=== PATIENT | female | born 1955 | race Caucasian/White ===

== ENCOUNTER → 2016-11-13 | Outpatient (CLI) | payer OTHER ==
[~2016-11-13] MED LIST: ADVIN25/60 INH; ALBUAER19 INH; AMOX875T PO; ASPI81TA28 PO; ATV/1 PO; BUME1TAB PO; CHOL1000 PO; FOLI800T17 PO; LOSA50TA6 PO; METO50TA16 PO; NRN/600 PO; NTRGSL/4 UT; OCTR100I SC; OMEP40CA41 PO; ONDA-63 PO; ONDA4TAB10 SL; ONDA4TAB46 PO; OXYC-106 PO; OXYC-164 PO; POTA20TA16 PO; PRAV40TA2 PO; SUMA25TA12 PO; TIOTCAP INH; TPRSR/25 PO; VITAMIN B 12 INJ; VNTHFA/IN INH
[2016-11-13 12:09] LABS: BASO % 0.2 %; BASO ABS # 0.02 K/uL (0-0.2); COMPLETE YES; EOS % 2.1 %; HEMATOCRIT 47.5 % (37-47); IG% 0.2 %; LYMPH % 22.1 %; LYMPH ABS # 2.49 K/uL (1.2-3.4); MEAN CELL VOLUME 96.7 fL (80-100); MEAN CORPUSCULAR HEMOGLOBIN 33.6 pg (25-34); MEAN CORPUSCULAR HGB CONC 34.7 g/dl (32-36); MONO % 5.8 %; NEUT % 69.6 %; PLATELET COUNT 217 K/uL (130-400); RED BLOOD COUNT 4.91 M/uL (4.2-5.4); WHITE BLOOD COUNT 11.27 K/uL (4.8-10.8)
[2016-11-13 12:37] LABS: ALT/SGPT 33 U/L (12-78); AST/SGOT 21 U/L (15-37); BLOOD UREA NITROGEN 12 mg/dl (7-18); BUN/CREATININE RATIO 21.4 (10-20); CALCIUM 9.4 mg/dl (8.5-10.1); CARBON DIOXIDE 29 mmol/L (21-32); CHLORIDE 103 mmol/L (98-107); CHOLESTEROL 137 mg/dl (0-200); CREATININE 0.56 mg/dl (0.60-1.20); GLUCOSE 123 mg/dl (70-99); POTASSIUM 3.4 mmol/L (3.5-5.1); SODIUM 139 mmol/L (136-145); TRIGLYCERIDES 255 mg/dl (0-150); VERY LOW DENSITY LIPOPROT CALC 51 mg/dl
[2016-11-13 12:39] LABS: ALB/GLOB RATIO 0.9 (0.9-2); ALKALINE PHOSPHATASE 127 U/L (45-117); CHOLESTEROL/HDL RATIO 3.1; HDL CHOLESTEROL 44 mg/dl
[2016-11-13 13:11] LABS: ESTIMATED AVERAGE GLUCOSE 126 mg/dl; HA1C FLAG Normal (Normal)
== END | disposition home or self-care (01) ==
LOC: C.LAB 10:38
PROVIDERS: ATTEND Family Medicine
DX: R73.02 Impaired glucose tolerance (oral) (principal); E78.5 Hyperlipidemia, unspecified; E53.8 Deficiency of other specified B group vitamins

== ENCOUNTER → 2017-01-16 | Outpatient (CLI) | payer OTHER ==
--- NOTE | 2017-01-16 11:51 | DIAGNOSTIC IMAGING REPORT ---
CHEST 2 VIEWS ROUTINE CLINICAL HISTORY: ATHEROSCLEROTIC HEART DISEASE COMPARISON STUDY: November 04, 2015 FINDINGS: There are postsurgical changes of midline sternotomy. There is no focal pulmonary consolidation. There is a calcified granuloma at the left lung apex. There are minor left basilar atelectatic changes. There is no failure. No pleural effusions are visualized.[ IMPRESSION: No active disease in the chest. Electronically signed by: Diomedes Benavides M.D. 01/16/2017 11:50 AM Dictated Date/Time: 01/16/2017 11:44 AM
[2017-01-16 12:42] LABS: BASO % 0.3 %; BASO ABS # 0.03 K/uL (0-0.2); COMPLETE YES; EOS % 1.9 %; HEMATOCRIT 47.9 % (37-47); IG% 0.2 %; LYMPH % 25.3 %; LYMPH ABS # 2.77 K/uL (1.2-3.4); MEAN CELL VOLUME 97.8 fL (80-100); MEAN CORPUSCULAR HEMOGLOBIN 32.4 pg (25-34); MEAN CORPUSCULAR HGB CONC 33.2 g/dl (32-36); MEAN PLATELET VOLUME 11.7 fL (7.4-10.4); MONO % 5.1 %; NEUT % 67.2 %; PLATELET COUNT 234 K/uL (130-400); WHITE BLOOD COUNT 10.97 K/uL (4.8-10.8)
[2017-01-16 13:24] LABS: ALT/SGPT 30 U/L (12-78); AST/SGOT 18 U/L (15-37); BLOOD UREA NITROGEN 18 mg/dl (7-18); BUN/CREATININE RATIO 22.7 (10-20); CALCIUM 9.1 mg/dl (8.5-10.1); CARBON DIOXIDE 20 mmol/L (21-32); CHLORIDE 114 mmol/L (98-107); CREATININE 0.81 mg/dl (0.60-1.20); GLUCOSE 117 mg/dl (70-99); SODIUM 143 mmol/L (136-145)
[2017-01-16 13:38] LABS: ALKALINE PHOSPHATASE 124 U/L (45-117); TOTAL IRON BINDING CAPACITY 423 mcg/dl (250-450)
== END | disposition home or self-care (01) ==
LOC: C.RAD 11:08
PROVIDERS: ATTEND Internal Medicine Cardiovascular Disease
DX: I25.119 Atherosclerotic heart disease of native coronary artery with unspecified angina pectoris (principal)

== ENCOUNTER 2017-02-20 12:53 | Emergency (ER) | payer OTHER ==
[~2017-02-20] VITALS: Ht 160 cm; Wt 67.0 kg
[~2017-02-20 12:53] MED LIST changes: -AMOX875T PO; -ASPI81TA28 PO; -ATV/1 PO; -CHOL1000 PO; -FOLI800T17 PO; -LOSA50TA6 PO; -NRN/600 PO; -NTRGSL/4 UT; -OMEP40CA41 PO; -ONDA-63 PO; -ONDA4TAB10 SL; -OXYC-164 PO; -POTA20TA16 PO; -PRAV40TA2 PO; -SUMA25TA12 PO; -TPRSR/25 PO; -VNTHFA/IN INH
[2017-02-20 12:55] VITALS: Ht 160 cm; Wt 67.0 kg
[2017-02-20] MEDS ORDERED: ONDANSETRON INJ 2 MG/ML 2 ML VIAL IV STA (13:16)
[2017-02-20] MEDS ORDERED: SODIUM CHLORIDE 0.9% 1000ML 1,000 ML IV STA (13:16)
--- NOTE | 2017-02-20 13:39 | EMERGENCY ROOM VISIT NOTE ---
History First contact with patient: 13:00 Chief Complaint: FLU LIKE SX Stated Complaint: MIGRAINE,FEVER,CHILLS,SEVERE JOINT PAIN,HEART PALP History of Present Illness The patient is a 61 year old female who presents to the Emergency Room with complaints of flulike symptoms. The patient states that 3 days ago, after lunch she vomited and has felt ill since then. She has had persistent vomiting and has not been able to keep any food or liquids down. She reports that 2 days ago, she developed a severe migraine. She does have a history of migraines. She states that her migraine has improved but she still has a mild headache. She reports that she has had body aches and all of her joints hurt. She states that she feels weak. She does note that she has had several tick bites over her legs and arms in the past few weeks. She has removed all of the ticks by herself at home. She does report a history of arthritis in her left hip and left shoulder. She reports an extensive cardiac history including 2 open heart surgeries. She did have a heart catheterization 1 month ago. 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 She has been having fevers and chills and states that her temperature has been as high as 103F. She took 2 Tylenol this morning. She denies any diarrhea, abdominal pain, chest pain, or shortness of breath. Review of Systems A complete 10 point review of systems was reviewed with the patient with pertinent positives and negatives as per history of present illness. All else were negative. Past Medical/Surgical History Medical Problems: (1) Abdominal pain (2) Acute bronchitis (3) Anemia (4) Anxiety disorder (5) Benign hypertension (6) Chronic pain syndrome (7) COPD exacerbation (8) CORONARY ATHEROSCLEROSIS OF [place] CORONARY VESSEL (9) History CABG (10) History exploratory lap (11) History L shoulder surgery (12) History of appendectomy (13) History of cholecystectomy (14) History of total hysterectomy (15) Leukocytosis (16) Tobacco user (17) Unstable angina (18) UTI (urinary tract infection) (19) Vomiting Family History Diabetes mellitus FH: cancer FH: heart disease Hypertension Kidney stones Social History Smoking Status: Current Every Day Smoker Alcohol Use: none Drug Use: none Marital Status: Occupation Status: unemployed Current/Historical Medications Scheduled Albuterol Inhaler (Ventolin Inhaler), 2 PUFFS INH QID Aspirin (Aspirin Ec), 81 MG PO DAILY Bumetanide (Bumex), 1 MG PO QD@0800 Gabapentin (Neurontin), 600 MG PO TID Lorazepam (Ativan), 1 MG PO 5XD Losartan Potassium (Cozaar), 50 MG PO BID Metoprolol Succinate (Metoprolol Succinate ER), 25 MG PO DAILY Omeprazole (Prilosec), 40 MG PO DAILY Ondansetron (Ondansetron HCl), 8 MG PO DAILY Ondasetron Odt (Zofran Odt), 4 MG SL Q6H Oxycodone Hcl (Oxycodone Hcl), 10 MG PO 5XD Potassium Ext Rel (Klor-Con), 20 MEQ PO BID Pravastatin Sodium (Pravastatin Sodium), 40 MG PO QD@1600 [Vitamin B 12], 1 DOSE INJ MONTHLY Scheduled PRN Nitroglycerin (Nitrostat), 0.4 MG UT UD PRN for Chest Pain Sumatriptan Succinate (Imitrex), 25 MG PO DIRECTED PRN for Migraine Allergies Coded Allergies: Benzyl Alcohol (Verified Allergy, Severe, ANAPHYLAXIS, 02/20/17) Saccharin (Verified Allergy, Severe, ANAPHYLAXIS, 02/20/17) Iodinated Diagnostic Agents (Verified Allergy, Intermediate, Rash - IVP dye, 02/20/17) Furosemide (Verified Allergy, Mild, 02/20/17) Prochlorperazine (Verified Allergy, Mild, 02/20/17) Promethazine (Verified Allergy, Mild, 02/20/17) Physical Exam Vital Signs Date Time Temp Pulse Resp B/P (MAP) Pulse Ox O2 Delivery O2 Flow Rate FiO2 02/20/17 15:30 96 18 139/81 95 02/20/17 14:20 37.1 101 16 139/74 99 Room Air 02/20/17 13:58 82 02/20/17 12:55 36.9 104 16 147/71 95 Room Air Physical Exam GENERAL: This is a 61-year-old female, awake, alert, well-appearing, in no distress HEAD: Normocephalic, atraumatic. Oropharynx unremarkable. EYES: PERRLA, Normal conjunctiva. Sclera non-icteric. EARS: Tympanic membranes pearly stoddard without erythema or effusion. MOUTH: No erythema of the posterior oropharynx. NECK: Supple. No nuchal rigidity. Full range of motion. RESPIRATORY: Decreased breath sounds throughout all lung castillo. CARDIAC: Regular rate and rhythm with no murmurs gallops or rubs. ABDOMEN: Soft, non-distended. No tenderness to palpation. No rebound or guarding. No masses. SKIN: There are multiple erythematous papules consistent with recent insect bites. There are no target rashes noted. NEURO: Alert and oriented to person, place and time. No focal neuro deficits. Medical Decision & Procedures ER Provider Diagnostic Interpretation: ABDOMEN 2VIEW W/PA CHEST RTN CLINICAL HISTORY: vomiting nausea COMPARISON STUDY: 01/16/2017 FINDINGS: Mild stable cardiomegaly. Lungs are clear. Chronic blunting left lateral costophrenic angle. Bowel pattern is nonobstructive. Postoperative changes right upper quadrant. IMPRESSION: Chronic and postoperative change. No acute process. Laboratory Results 02/20/17 13:45 Red Blood Count 4.36, Mean Corpuscular Volume 96.6, Mean Corpuscular Hemoglobin 32.8, Mean Corpuscular Hemoglobin Concent 34.0, Mean Platelet Volume 10.5, Neutrophils (%) (Auto) 80.8, Lymphocytes (%) (Auto) 12.8, Monocytes (%) (Auto) 5.7, Eosinophils (%) (Auto) 0.3, Basophils (%) (Auto) 0.2, Neutrophils # (Auto) 4.68, Lymphocytes # (Auto) 0.74, Monocytes # (Auto) 0.33, Eosinophils # (Auto) 0.02, Basophils # (Auto) 0.01 02/20/17 13:45 Test 02/20/17 13:45 White Blood Count 5.79 K/uL (4.8-10.8) Red Blood Count 4.36 M/uL (4.2-5.4) Hemoglobin 14.3 g/dL (12.0-16.0) Hematocrit 42.1 % (37-47) Mean Corpuscular Volume 96.6 fL (80-100) Mean Corpuscular Hemoglobin 32.8 pg (25-34) Mean Corpuscular Hemoglobin Concent 34.0 g/dl (32-36) Platelet Count 105 K/uL (130-400) Mean Platelet Volume 10.5 fL (7.4-10.4) Neutrophils (%) (Auto) 80.8 % Lymphocytes (%) (Auto) 12.8 % Monocytes (%) (Auto) 5.7 % Eosinophils (%) (Auto) 0.3 % Basophils (%) (Auto) 0.2 % Neutrophils # (Auto) 4.68 K/uL (1.4-6.5) Lymphocytes # (Auto) 0.74 K/uL (1.2-3.4) Monocytes # (Auto) 0.33 K/uL (0.11-0.59) Eosinophils # (Auto) 0.02 K/uL (0-0.5) Basophils # (Auto) 0.01 K/uL (0-0.2) RDW Standard Deviation 48.3 fL (36.4-46.3) RDW Coefficient of Variation 13.5 % (11.5-14.5) Immature Granulocyte % (Auto) 0.2 % Immature Granulocyte # (Auto) 0.01 K/uL (0.00-0.02) Anion Gap 8.0 mmol/L (3-11) Est Creatinine Clear Calc Drug Dose 95.7 ml/min Estimated GFR () 115.8 Estimated GFR (Non- 99.9 BUN/Creatinine Ratio 21.2 (10-20) Calcium Level 8.5 mg/dl (8.5-10.1) Total Bilirubin 0.5 mg/dl (0.2-1) Aspartate Amino Transf (AST/SGOT) 52 U/L (15-37) Alanine Aminotransferase (ALT/SGPT) 43 U/L (12-78) Alkaline Phosphatase 149 U/L (45-117) Troponin I < 0.015 ng/ml (0-0.045) Total Protein 6.6 gm/dl (6.4-8.2) Albumin 2.8 gm/dl (3.4-5.0) Globulin 3.8 gm/dl (2.5-4.0) Albumin/Globulin Ratio 0.7 (0.9-2) Lipase 56 U/L (73-393) Thyroid Stimulating Hormone (TSH) 0.736 uIu/ml (0.300-4.500) Lyme Disease IgG Antibody NEG (NEG) Lyme Disease IgM Antibody NEG (NEG) Medications Administered Medications (Trade) Dose Ordered Sig/Boni Route Start Time Stop Time Status Last Admin Dose Admin Sodium Chloride 1,000 ml @ 999 mls/hr Q1H1M STAT IV 02/20/17 13:16 02/20/17 14:16 DC 02/20/17 13:56 999 MLS/HR Ondansetron HCl (Zofran Inj) 4 mg NOW STAT IV 02/20/17 13:16 02/20/17 13:20 DC 02/20/17 13:56 4 MG Morphine Sulfate (MoRPHine SULFATE INJ) 6 mg NOW STAT IV 02/20/17 14:05 02/20/17 14:06 DC 02/20/17 14:18 6 MG ED Course The patient was evaluated as above. Labs were drawn and IV access was obtained. Patient was medicated with 4 mg Zofran IV and 1 L normal saline solution. Patient was reevaluated and complained of pain "all over." She was given 6 mg morphine IV. Discharge instructions were reviewed with the patient. The patient verbalized understanding of my assessment and treatment plan and was discharged home in good condition. Medical Decision Differential diagnosis includes pneumonia, upper respiratory infection, Lyme disease, tick borne illness, viral syndrome, among others. The patient is a 61-year-old female who presents today complaining of body aches and flulike symptoms. Labs revealed no leukocytosis, anemia or concerning electrolyte abnormalities. LFTs were mildly elevated, but they have been in the past. Lyme was negative. Findings were discussed with the patient. She likely has a viral illness. She was instructed to increase fluids and take yula-xqt-bboerup medications as needed for pain. She is afebrile and vital signs are stable. The patient's case was reviewed with Dr. Puckett, ED attending physician, who agreed with my assessment and treatment plan. Based on the patient's presentation and work up, I feel the patient is stable for outpatient treatment. The patient was educated to return to the emergency department for any worsening of their current condition or new/concerning symptoms. She will follow up with her primary care provider. Medication reconciliation: I attest that I have personally reviewed the patient 's current medication list. Blood pressure screening: Patient was found to have normal blood pressure on screening and does not require follow-up. Impression Primary Impression: Influenza-like symptoms Departure Information Dispostion Home / Self-Care Condition GOOD Prescriptions Ondasetron Odt (ZOFRAN ODT) 4 Mg Tab 4 MG SL Q6H for Nausea, #15 TAB Prov: Marielena Redman PA-C 02/20/17 Referrals Marcos Jung M.D. (PCP) Patient Instructions My [facility] Additional Instructions You have been prescribed Zofran to be used for any nausea or vomiting. Take as prescribed. For pain control, you can use the following [id number] medicines (if >12 yo): - Regular strength (325mg/tab) Tylenol (acetaminophen) 2 tabs every 4-6 hours as needed. Do not exceed 12 tablets in a 24 hour period. Avoid taking more than 4 grams (4000 mg) of Tylenol per day. This includes any other sources of acetaminophen you may take on a regular basis. - Regular strength (200 mg/tab) Advil (ibuprofen) 1-2 tabs every 4-6 hours as needed. Do not exceed a dose of 3200 mg per day. Rest and drink plenty of fluids. Follow-up with your primary care provider tomorrow as scheduled. Return to the emergency department with any worsening or new/concerning symptoms.
[2017-02-20 13:55] LABS: BASO % 0.2 %; BASO ABS # 0.01 K/uL (0-0.2); COMPLETE YES; EOS % 0.3 %; HEMATOCRIT 42.1 % (37-47); IG% 0.2 %; LYMPH % 12.8 %; LYMPH ABS # 0.74 K/uL (1.2-3.4); MEAN CELL VOLUME 96.6 fL (80-100); MEAN CORPUSCULAR HEMOGLOBIN 32.8 pg (25-34); MEAN PLATELET VOLUME 10.5 fL (7.4-10.4); MONO % 5.7 %; NEUT % 80.8 %; PLATELET COUNT 105 K/uL (130-400); RED BLOOD COUNT 4.36 M/uL (4.2-5.4); WHITE BLOOD COUNT 5.79 K/uL (4.8-10.8)
[2017-02-20] MEDS ORDERED: MoRPHine SULFATE 10 MG/ML CARP/VIAL IV STA (14:05)
[2017-02-20 14:18] LABS: ALT/SGPT 43 U/L (12-78); AST/SGOT 52 U/L (15-37); BLOOD UREA NITROGEN 12 mg/dl (7-18); BUN/CREATININE RATIO 21.2 (10-20); CALCIUM 8.5 mg/dl (8.5-10.1); CARBON DIOXIDE 27 mmol/L (21-32); CHLORIDE 106 mmol/L (98-107); CREATININE 0.56 mg/dl (0.60-1.20); GLUCOSE 85 mg/dl (70-99); POTASSIUM 3.7 mmol/L (3.5-5.1); SODIUM 141 mmol/L (136-145)
[2017-02-20 14:20] VITALS: TEMP 37.1
[2017-02-20 14:29] LABS: ALB/GLOB RATIO 0.7 (0.9-2); ALKALINE PHOSPHATASE 149 U/L (45-117); THYROID STIMULATING HORMONE 0.736 uIu/ml (0.300-4.500)
[2017-02-20 14:48] LABS: LYME DISEASE AB IGG NEG (NEG)
[2017-02-20 14:52] LABS: LYME DISEASE AB IGM NEG (NEG)
--- NOTE | 2017-02-20 14:53 | DIAGNOSTIC IMAGING REPORT ---
ABDOMEN 2VIEW W/PA CHEST RTN CLINICAL HISTORY: vomiting nausea COMPARISON STUDY: 01/16/2017 FINDINGS: Mild stable cardiomegaly. Lungs are clear. Chronic blunting left lateral costophrenic angle. Bowel pattern is nonobstructive. Postoperative changes right upper quadrant. IMPRESSION: Chronic and postoperative change. No acute process. Electronically signed by: Gatito Pugh M.D. 02/20/2017 2:52 PM Dictated Date/Time: 02/20/2017 2:51 PM
[2017-02-20] MEDS ORDERED: ONDA4TAB10 SL (15:15)
[2017-02-20 15:30] VITALS: BP 139/81; PULSE 96; O2SAT 95
[2017-05-09] MEDS ORDERED: NTRGSL/4 UT (11:37)
[2017-05-09] MEDS ORDERED: LOSA50TA6 PO (13:06)
[2017-05-09] MEDS ORDERED: TPRSR/25 PO (14:03)
[2017-05-09] MEDS ORDERED: ONDA-63 PO (14:03)
[2017-05-09] MEDS ORDERED: OXYC-164 PO (14:03)
[2017-05-09] MEDS ORDERED: SUMA25TA12 PO (14:06)
[2017-05-09] MEDS ORDERED: OMEP40CA41 PO (14:06)
[2017-05-09] MEDS ORDERED: POTA20TA16 PO (16:28)
== END 2017-02-20 15:32 | disposition home or self-care (01) ==
LOC: C.EDB 12:55 → C.EDA 15:32
DX: J11.1 Influenza due to unidentified influenza virus with other respiratory manifestations (principal); I10 Essential (primary) hypertension; I25.10 Atherosclerotic heart disease of native coronary artery without angina pectoris; J44.9 Chronic obstructive pulmonary disease, unspecified; F41.9 Anxiety disorder, unspecified; D64.9 Anemia, unspecified; F17.200 Nicotine dependence, unspecified, uncomplicated; Z95.1 Presence of aortocoronary bypass graft; Z87.440 Personal history of urinary (tract) infections; Z90.49 Acquired absence of other specified parts of digestive tract; Z90.710 Acquired absence of both cervix and uterus; Z98.890 Other specified postprocedural states; Z79.82 Long term (current) use of aspirin; Z79.899 Other long term (current) drug therapy; Z88.8 Allergy status to other drugs, medicaments and biological substances; Z91.041 Radiographic dye allergy status; Z83.3 Family history of diabetes mellitus; Z80.9 Family history of malignant neoplasm, unspecified; Z82.49 Family history of ischemic heart disease and other diseases of the circulatory system; Z84.1 Family history of disorders of kidney and ureter

== ENCOUNTER → 2017-03-14 | Outpatient (CLI) | payer OTHER ==
[~2017-03-14] MED LIST changes: -ADVIN25/60 INH; +AMOX875T PO; +ASPI81TA28 PO; +ATV/1 PO; +CHOL1000 PO; +FOLI800T17 PO; +LOSA50TA6 PO; -METO50TA16 PO; +NRN/600 PO; +NTRGSL/4 UT; -OCTR100I SC; +OMEP40CA41 PO; +ONDA-63 PO; +ONDA4TAB10 SL; -ONDA4TAB46 PO; -OXYC-106 PO; +OXYC-164 PO; +POTA20TA16 PO; +PRAV40TA2 PO; +SUMA25TA12 PO; -TIOTCAP INH; +TPRSR/25 PO; +VNTHFA/IN INH
[2017-03-14 09:41] LABS: BASO % 0.1 %; BASO ABS # 0.01 K/uL (0-0.2); COMPLETE YES; EOS % 0.2 %; HEMATOCRIT 47.6 % (37-47); IG% 0.5 %; LYMPH % 16.4 %; LYMPH ABS # 3.01 K/uL (1.2-3.4); MEAN CELL VOLUME 97.7 fL (80-100); MEAN CORPUSCULAR HEMOGLOBIN 33.5 pg (25-34); MEAN CORPUSCULAR HGB CONC 34.2 g/dl (32-36); MEAN PLATELET VOLUME 10.5 fL (7.4-10.4); MONO % 3.6 %; NEUT % 79.2 %; PLATELET COUNT 288 K/uL (130-400); RED BLOOD COUNT 4.87 M/uL (4.2-5.4); WHITE BLOOD COUNT 18.39 K/uL (4.8-10.8)
[2017-03-14 10:17] LABS: FERRITIN 24.7 ng/ml (8.0-388.0)
[2017-03-14 11:29] LABS: LYME DISEASE AB IGG POS (NEG); LYME DISEASE AB IGM POS (NEG)
[2017-03-16 12:39] LABS: 18KDIGG BAND REACTIVE (NONREACTIVE); 23KDIGG BAND REACTIVE (NONREACTIVE); 23KDIGM BAND REACTIVE (NONREACTIVE); 28KDIGG BAND NONREACTIVE (NONREACTIVE); 30KDIGG BAND NONREACTIVE (NONREACTIVE); 39KDIGG BAND REACTIVE (NONREACTIVE); 39KDIGM BAND NONREACTIVE (NONREACTIVE); 41KDIGG BAND REACTIVE (NONREACTIVE); 41KDIGM BAND REACTIVE (NONREACTIVE); 45KDIGG BAND REACTIVE (NONREACTIVE); 58KDIGG BAND NONREACTIVE (NONREACTIVE); 66KDIGG BAND REACTIVE (NONREACTIVE); 93KDIGG BAND NONREACTIVE (NONREACTIVE)
== END | disposition home or self-care (01) ==
LOC: C.LAB 08:38
PROVIDERS: ATTEND Family Medicine
DX: E61.1 Iron deficiency (principal); R29.810 Facial weakness

== ENCOUNTER → 2017-03-16 | Outpatient (CLI) | payer OTHER ==
--- NOTE | 2017-03-16 14:52 | DIAGNOSTIC IMAGING REPORT ---
MRI OF THE BRAIN WITHOUT CONTRAST CLINICAL HISTORY: Facial weakness. Gilliam's palsy. Lyme's disease. COMPARISON STUDY: None. TECHNIQUE: Utilizing a 1.5 Suzanne magnet and dedicated coil, multiplanar, multiecho imaging of the brain was performed without IV contrast. FINDINGS: There are no areas of restricted diffusion. No acute intracranial hemorrhage, midline shift or mass effect is present. Jugular system is normal. Basilar cisterns are patent. There are no extra axial collections. Flow-voids for the major intracranial vessels are present. No intracranial masses identified on this unenhanced exam. There are multiple scattered small white matter T2 hyperintense foci, predominantly subacute cortical in distribution. These are nonspecific. Orbits and sinuses are unremarkable. IMPRESSION: 1. No acute intracranial hemorrhage or mass effect. No evidence of acute infarction. 2. Several white matter T2 hyperintense foci. These are entirely nonspecific and statistically reflect small vessel disease. The appearance is not typical for multiple sclerosis. However, other demyelinating processes could have this imaging appearance. Electronically signed by: Jose Dias M.D. 03/16/2017 2:51 PM Dictated Date/Time: 03/16/2017 2:44 PM
== END | disposition home or self-care (01) ==
LOC: C.MRI 14:06
PROVIDERS: ATTEND Family Medicine
DX: R29.810 Facial weakness (principal)

== ENCOUNTER 2017-05-09 19:48 | Emergency (ER) | payer OTHER ==
[~2017-05-09] VITALS: Ht 160 cm; Wt 69.4 kg
[~2017-05-09 19:48] MED LIST changes: -AMOX875T PO; -ASPI81TA28 PO; -ATV/1 PO; -CHOL1000 PO; -FOLI800T17 PO; -NRN/600 PO; -PRAV40TA2 PO; -VNTHFA/IN INH
[2017-05-09 19:53] VITALS: TEMP 36.8; Ht 160 cm; Wt 69.4 kg
[2017-05-09] MEDS ORDERED: NORCO 5/325MG HOME PACK PO ONE (21:00)
[2017-05-09] MEDS ORDERED: AMOXICIL/CLAVU 875MG HOME PACK PO ONE (21:00)
[2017-05-09] MEDS ORDERED: DIPHTHERIA/TETANUS/PERTUSSIS 0.5 ML SYR/VIAL IM. ONE (21:00)
[2017-05-09] MEDS ORDERED: ATV/1 PO (21:08)
[2017-05-09] MEDS ORDERED: ASPI81TA28 PO (21:08)
[2017-05-09] MEDS ORDERED: NRN/600 PO (21:08)
[2017-05-09] MEDS ORDERED: PRAV40TA2 PO (21:08)
[2017-05-09] MEDS ORDERED: VNTHFA/IN INH (21:14)
[2017-05-09] MEDS ORDERED: CHOL1000 PO (21:15)
[2017-05-09] MEDS ORDERED: FOLI800T17 PO (21:15)
--- NOTE | 2017-05-09 21:15 | DIAGNOSTIC IMAGING REPORT ---
LEFT FOURTH FINGER 3 VIEWS CLINICAL HISTORY: Dog bite injury. FINDINGS: 3 portable views of the left fourth finger are obtained. No prior studies are available for comparison at the time of dictation. The skeletal structures are osteopenic. There is no radiographic evidence of fourth finger fracture. Mild osteoarthritic change is present at the fourth distal interphalangeal joint. The joint spaces of the finger are otherwise maintained. Mild soft tissue swelling is noted in the fourth finger. No radiodense foreign body is identified. IMPRESSION: Soft tissue swelling with no radiographic evidence of left fourth finger fracture. Electronically signed by: Terry Oscar M.D. 05/09/2017 9:14 PM Dictated Date/Time: 05/09/2017 9:13 PM
[2017-05-09] MEDS ORDERED: AMOX875T PO (21:30)
--- NOTE | 2017-05-09 21:30 | EMERGENCY ROOM VISIT NOTE ---
History First contact with patient: 20:27 Chief Complaint: BITE Stated Complaint: DOG BITE ON FINGER History of Present Illness The patient is a 61 year old female who presents to the Emergency Room with complaints of a dog bite on her left fourth finger. The patient states that her 2 dogs were fighting and she attempted to break up the fight and sustained a bite to the finger. She rates the discomfort an 8/10. Her dogs vaccinations are up-to-date. She has not taken any medication for pain. She washed the wound with peroxide immediately afterward. She is unsure of her tetanus status. Review of Systems A complete 10 point review of systems was reviewed with the patient with pertinent positives and negatives as per history of present illness. All else were negative. Past Medical/Surgical History Medical Problems: (1) Abdominal pain (2) Acute bronchitis (3) Anemia (4) Anxiety disorder (5) Benign hypertension (6) Chronic pain syndrome (7) COPD exacerbation (8) CORONARY ATHEROSCLEROSIS OF [place] CORONARY VESSEL (9) History CABG (10) History exploratory lap (11) History L shoulder surgery (12) History of appendectomy (13) History of cholecystectomy (14) History of total hysterectomy (15) Leukocytosis (16) Tobacco user (17) Unstable angina (18) UTI (urinary tract infection) (19) Vomiting Family History Diabetes mellitus FH: cancer FH: heart disease Hypertension Kidney stones Social History Smoking Status: Never Smoker Alcohol Use: none Drug Use: none Marital Status: Occupation Status: unemployed Current/Historical Medications Scheduled Amoxicillin & Pot Clavulanate (Augmentin 875-125 mg), 1 TAB PO BID Aspirin (Aspirin Ec), 81 MG PO DAILY Cholecalciferol (Vitamin D3), 1 TAB PO DAILY Folic Acid (Cvs Folic Acid), 1 TAB PO DAILY Gabapentin (Neurontin), 600 MG PO QID Lorazepam (Ativan), 1 MG PO 5XD Losartan Potassium (Cozaar), 50 MG PO BID Metoprolol Succinate (Metoprolol Succinate ER), 25 MG PO DAILY Omeprazole (Prilosec), 40 MG PO DAILY Ondansetron (Ondansetron HCl), 8 MG PO DAILY Oxycodone Hcl (Oxycodone Hcl), 10 MG PO 5XD Pravastatin Sodium (Pravastatin Sodium), 40 MG PO QD@1600 Scheduled PRN Albuterol Hfa (Ventolin Hfa), 2 PUFFS INH Q6H PRN for SOB/Wheezing Bumetanide (Bumex), 1 MG PO DAILY PRN for PRN Nitroglycerin (Nitrostat), 0.4 MG UT UD PRN for Chest Pain Potassium Ext Rel (Klor-Con), 20 MEQ PO BID PRN for LEG CRAMPS Sumatriptan Succinate (Imitrex), 25 MG PO DIRECTED PRN for Migraine Physical Exam Vital Signs Date Time Temp Pulse Resp B/P (MAP) Pulse Ox O2 Delivery O2 Flow Rate FiO2 05/09/17 21:36 70 20 128/74 98 05/09/17 19:53 36.8 98 16 174/80 98 Room Air Physical Exam VITALS: Vitals are noted on the nurse's note and reviewed by myself. Vital signs stable. GENERAL: This is a 61-year-old female, in no acute distress, nondiaphoretic, well-developed well-nourished. SKIN: There is a puncture wound to the finger pad of the left fourth finger. There is no active bleeding. MUSCULOSKELETAL: Tenderness to palpation of the distal left fourth finger. Full range of motion of the finger. NEURO: Patient was alert and oriented to person place and time. Normal sensation to light and sharp touch. Medical Decision & Procedures ER Provider Diagnostic Interpretation: LEFT FOURTH FINGER 3 VIEWS CLINICAL HISTORY: Dog bite injury. FINDINGS: 3 portable views of the left fourth finger are obtained. No prior studies are available for comparison at the time of dictation. The skeletal structures are osteopenic. There is no radiographic evidence of fourth finger fracture. Mild osteoarthritic change is present at the fourth distal interphalangeal joint. The joint spaces of the finger are otherwise maintained. Mild soft tissue swelling is noted in the fourth finger. No radiodense foreign body is identified. IMPRESSION: Soft tissue swelling with no radiographic evidence of left fourth finger fracture. Medications Administered Medications (Trade) Dose Ordered Sig/Boni Route Start Time Stop Time Status Last Admin Dose Admin Amoxicillin/ Clavulanate Potassium (Augmentin 875MG Home Pack) 1 homepack UD ONCE PO 05/09/17 21:00 05/09/17 21:01 DC 05/09/17 21:35 1 HOMEPACK Acetaminophen/ Hydrocodone Bitart ([place] 5/325mg Home Pack) 1 homepack UD ONCE PO 05/09/17 21:00 05/09/17 21:01 DC 05/09/17 21:35 1 HOMEPACK Diphtheria/ Pertussis/Tetanus Vacc (Adacel Inj) 0.5 ml ONCE ONCE IM. 05/09/17 21:00 05/09/17 21:01 DC 05/09/17 21:09 0.5 ML Medical Decision The patient was evaluated as above. She sustained a puncture wound to the finger. X-ray showed no fracture. Closure is not indicated due to increased risk of infection. Her tetanus was updated. She will be placed on Augmentin to prevent infection. She verbalized understanding of my assessment and treatment plan and was discharged home in good condition. Medication Reconcilliation Current Medication List: was personally reviewed by me Blood Pressure Screening Patient's blood pressure: Elevated blood pressure Blood pressure disposition: Elevated BP felt to be situational Impression Primary Impression: Dog bite Departure Information Dispostion Home / Self-Care Condition GOOD Prescriptions Amoxicillin & Pot Clavulanate (Augmentin 875-125 mg) 1 Tab Tab 1 TAB PO BID for 7 Days, #14 TAB Prov: Marileena Redman PA-C 05/09/17 Referrals Marcos Jung M.D. (PCP) Patient Instructions My [facility] Additional Instructions You were prescribed Augmentin to be taken twice daily as prescribed. This is an antibiotic. All antibiotics have the potential to cause diarrhea. Stop this medication and contact a medical provider if you were to develop any significant adverse side effects including: wheezing, shortness of breath, passing out, vomiting, or a diffuse rash. Always take antibiotics as directed and COMPLETE the ENTIRE course regardless of the improvement of your symptoms. For pain control, you can use the following bqfk-jxp-yenytft medicines (if >12 yo): - Regular strength (325mg/tab) Tylenol (acetaminophen) 2 tabs every 4-6 hours as needed. Do not exceed 12 tablets in a 24 hour period. Avoid taking more than 4 grams (4000 mg) of Tylenol per day. This includes any other sources of acetaminophen you may take on a regular basis. - Regular strength (200 mg/tab) Advil (ibuprofen) 1-2 tabs every 4-6 hours as needed. Do not exceed a dose of 3200 mg per day. Proper wound care is essential for adequate wound healing and infection prevention. You can shower and clean the wound with soap and water. Do not scour over the wound, pat dry with a towel. Do not submerse the wound (i.e. bathe or dish wash) until the wound has fully healed. You can use an antibiotic ointment with a dressing over the wound for the next 3-4 days. After this time you may leave the wound dry and open to the air. Return for any signs of worsening infection such as increasing redness, swelling , drainage or fevers. Problem Qualifiers Primary Impression: Dog bite Encounter type: initial encounter Qualified Codes: W54.0XXA - Bitten by dog , initial encounter
[2017-05-09 21:36] VITALS: BP 128/74; PULSE 70; O2SAT 98
== END 2017-05-09 21:38 | disposition home or self-care (01) ==
LOC: C.EDB 19:48 → C.EDD 21:38
DX: S61.255A Open bite of left ring finger without damage to nail, initial encounter (principal); W54.0XXA Bitten by dog, initial encounter; Z23 Encounter for immunization; I10 Essential (primary) hypertension; I25.10 Atherosclerotic heart disease of native coronary artery without angina pectoris; J44.9 Chronic obstructive pulmonary disease, unspecified; F41.9 Anxiety disorder, unspecified; Z87.440 Personal history of urinary (tract) infections; Z95.1 Presence of aortocoronary bypass graft; Z90.710 Acquired absence of both cervix and uterus; Z90.49 Acquired absence of other specified parts of digestive tract; Z98.890 Other specified postprocedural states; Z79.82 Long term (current) use of aspirin; Z79.899 Other long term (current) drug therapy; Z83.3 Family history of diabetes mellitus; Z80.9 Family history of malignant neoplasm, unspecified; Z82.49 Family history of ischemic heart disease and other diseases of the circulatory system; Z84.1 Family history of disorders of kidney and ureter

== ENCOUNTER → 2017-05-22 | Outpatient (CLI) | payer OTHER ==
[~2017-05-22] MED LIST changes: -ALBUAER19 INH; +ASPI81TA28 PO; +ATV/1 PO; +CHOL1000 PO; +FOLI800T17 PO; +NRN/600 PO; -ONDA4TAB10 SL; +PRAV40TA2 PO; -VITAMIN B 12 INJ; +VNTHFA/IN INH
[2017-05-22 10:00] LABS: AST/SGOT 20 U/L (15-37); BLOOD UREA NITROGEN 17 mg/dl (7-18); BUN/CREATININE RATIO 23.5 (10-20); CALCIUM 9.7 mg/dl (8.5-10.1); CARBON DIOXIDE 26 mmol/L (21-32); CHLORIDE 108 mmol/L (98-107); CREATININE 0.72 mg/dl (0.60-1.20); GLUCOSE 135 mg/dl (70-99); SODIUM 140 mmol/L (136-145)
[2017-05-22 10:32] LABS: ESTIMATED AVERAGE GLUCOSE 140 mg/dl; HA1C FLAG Normal (Normal)
[2017-05-23 14:13] LABS: MICROSOMAL AB 1 IU/ML (<9)
== END | disposition home or self-care (01) ==
LOC: C.LAB 08:43
PROVIDERS: ATTEND Physician Assistant Medical
DX: E03.9 Hypothyroidism, unspecified (principal); E78.5 Hyperlipidemia, unspecified; R73.01 Impaired fasting glucose; E53.8 Deficiency of other specified B group vitamins; E87.6 Hypokalemia

== ENCOUNTER → 2017-05-24 | Outpatient (CLI) | payer OTHER | END | disposition home or self-care (01) | LOC: C.LAB 09:19 | PROVIDERS: ATTEND Family Medicine | DX: Z91.89 Other specified personal risk factors, not elsewhere classified (principal) ==

== ENCOUNTER → 2017-10-26 | Outpatient (CLI) | payer OTHER ==
--- NOTE | 2017-10-26 10:40 | DIAGNOSTIC IMAGING REPORT ---
LUMBAR SPINE W/O CONTRAST CLINICAL HISTORY: 61 years-old Female with M54.16 Lumbar radiculopathy. Acute lumbar spine pain with reticular symptoms of the bilateral lower extremities COMPARISON: Lumbar puncture 07/23/2017, CT abdomen and pelvis 10/05/2015 TECHNIQUE: Multiplanar, multi sequence MRI of the lumbar spine was performed without intravenous contrast. FINDINGS: There is no focal bone marrow edema, acute fracture or subluxation. No focal soft tissue edema. The imaged paraspinal, intra-abdominal and intrapelvic structures are unremarkable. No aortic aneurysm or adenopathy. Conus medullaris terminates at the L1 level. Cauda equina appear to be within normal limits. T12-L1: No central canal or neural foraminal stenosis. L1-L2: Minimal intervertebral disc space narrowing, endplate spurring and facet arthrosis. No Central canal or neural foraminal stenosis. L2-L3: Minimal intervertebral disc space narrowing, endplate spurring, ligamentum flavum thickening and facet arthrosis. Small circumferential annular disc bulge flattens the ventral thecal sac causing mild inferior left foraminal stenosis. No significant central canal or right foraminal narrowing. L3-L4: Mild intervertebral disc space narrowing with minimal spondylitic spurring, and facet arthrosis. No central canal or foraminal narrowing identified. L4-L5: Mild facet arthrosis with ligamentum flavum thickening and mild endplate spurring with small posterior disc bulge which flattens the ventral thecal sac. There is resultant mild right foraminal narrowing. Left foramen is patent. No significant central canal stenosis. L5-S1: Minimal facet arthrosis without central canal or foraminal narrowing. IMPRESSION: 1. Very mild discogenic degenerative changes as above. At L2-L3, small circumferential annular disc bulge flattens the ventral thecal sac and causes mild left foraminal narrowing. 2. At L4-L5, mild facet arthrosis with ligamentum flavum thickening and mild endplate spurring with small posterior disc bulge causes mild right foraminal narrowing. 3. No significant central canal stenosis. The above report was generated using voice recognition software. It may contain grammatical, syntax or spelling errors. Electronically signed by: Aki Osullivan M.D. 10/26/2017 10:39 AM Dictated Date/Time: 10/26/2017 10:29 AM
== END | disposition home or self-care (01) ==
LOC: C.MRI 09:42
PROVIDERS: ATTEND Physician Assistant
DX: M54.16 Radiculopathy, lumbar region (principal)

== ENCOUNTER → 2017-11-19 | Outpatient (CLI) | payer OTHER ==
[2017-11-19 10:07] LABS: HEMOGLOBIN A1C 6.2 % (4.5-5.6)
[2017-11-19 10:22] LABS: ALBUMIN 2.7 gm/dl (3.4-5.0); ALT/SGPT 26 U/L (12-78); AST/SGOT 19 U/L (15-37); BLOOD UREA NITROGEN 15 mg/dl (7-18); CALCIUM 8.4 mg/dl (8.5-10.1); CARBON DIOXIDE 28 mmol/L (21-32); CREATININE 0.72 mg/dl (0.60-1.20); GLUCOSE 121 mg/dl (70-99); SODIUM 142 mmol/L (136-145)
[2017-11-19 10:32] LABS: ALKALINE PHOSPHATASE 175 U/L (45-117); LDL CHOLESTEROL (DIRECT) 38 mg/dl; TOTAL PROTEIN 6.5 gm/dl (6.4-8.2)
== END | disposition home or self-care (01) ==
LOC: C.LAB 08:50
PROVIDERS: ATTEND Physician Assistant Medical
DX: E78.5 Hyperlipidemia, unspecified (principal); I10 Essential (primary) hypertension; R73.02 Impaired glucose tolerance (oral); E53.8 Deficiency of other specified B group vitamins; E03.9 Hypothyroidism, unspecified; M81.0 Age-related osteoporosis without current pathological fracture

== ENCOUNTER 2017-12-07 10:41 | Emergency (ER) | payer OTHER ==
[2017-12-07 10:54] VITALS: TEMP 37.2; Ht 160 cm
[2017-12-07] MEDS ORDERED: ONDANSETRON INJ 2 MG/ML 2 ML VIAL IV STA (11:04)
[2017-12-07] MEDS ORDERED: SODIUM CHLORIDE 0.9% 500ML 500 ML IV STA (11:04)
[2017-12-07] MEDS ORDERED: ALBUT/IPRATROP 3MG/0.5MG NEB 3 ML VIAL INH STA (11:04)
[2017-12-07] MEDS ORDERED: SODIUM CHLORIDE 0.65% NA SOLN 45 ML (OCEAN) ONE (11:15)
[2017-12-07 11:20] VITALS: O2SAT 100
--- NOTE | 2017-12-07 11:31 | EMERGENCY ROOM VISIT NOTE ---
History Report prepared by Charles: Caroline Cohen Under the Supervision of: Dr. Chau Garrison M.D. First contact with patient: 11:02 Chief Complaint: FLU LIKE SX Stated Complaint: FLU, FELL DOWN AND HURT LEG History of Present Illness The patient is a 61 year old female who presents to the Emergency Room with complaints of constant generalized illness beginning three days ago. The patient reports body aches, fatigue, vomiting, decreased appetite, and a cough. She denies any urinary burning, diarrhea, or abdominal pain. The patient notes recent flu contact with a person who was flu positive. The patient reports falling in her yard yesterday. She states "I think I may have broken some toes and my left knee cap". She notes toe and knee pain but denies any ankle pain. The patient has a history of CHF and anxiety. The patient takes a baby aspirin daily. She is not on Lasix. Source of History: patient Onset: 3 days ago Position: other (generalized) Quality: other (illness) Timing: constant Associated Symptoms: + cough, + vomiting, + fatigue, No abdominal pain, No diarrhea, No urinary symptoms Review of Systems See HPI for pertinent positives and negatives. A total of ten systems were reviewed and were otherwise negative. Past Medical & Surgical Medical Problems: (1) Abdominal pain (2) Acute bronchitis (3) Anemia (4) Anxiety disorder (5) Benign hypertension (6) Chronic pain syndrome (7) COPD exacerbation (8) CORONARY ATHEROSCLEROSIS OF THREE AFFILIATED CORONARY VESSEL (9) History CABG (10) History exploratory lap (11) History L shoulder surgery (12) History of appendectomy (13) History of cholecystectomy (14) History of total hysterectomy (15) Leukocytosis (16) Tobacco user (17) Unstable angina (18) UTI (urinary tract infection) (19) Vomiting Family History Diabetes mellitus FH: cancer FH: heart disease Hypertension Kidney stones Social History Smoking Status: Current Every Day Smoker Alcohol Use: none Drug Use: none Marital Status: Occupation Status: unemployed Current/Historical Medications Scheduled Aspirin (Aspirin Ec), 81 MG PO DAILY Cholecalciferol (Vitamin D3), 1 TAB PO DAILY Folic Acid (Cvs Folic Acid), 1 TAB PO DAILY Gabapentin (Neurontin), 600 MG PO QID Lorazepam (Ativan), 1 MG PO 5XD Losartan Potassium (Cozaar), 50 MG PO BID Metoprolol Succinate (Metoprolol Succinate ER), 25 MG PO DAILY Omeprazole (Prilosec), 40 MG PO DAILY Ondansetron (Ondansetron HCl), 8 MG PO DAILY Oseltamivir Phosphate (Tamiflu), 75 MG PO BID Oxycodone Hcl (Oxycodone Hcl), 10 MG PO 5XD Pravastatin Sodium (Pravastatin Sodium), 40 MG PO QD@1600 Scheduled PRN Albuterol Hfa (Ventolin Hfa), 2 PUFFS INH Q6H PRN for SOB/Wheezing Bumetanide (Bumex), 1 MG PO DAILY PRN for PRN Nitroglycerin (Nitrostat), 0.4 MG UT UD PRN for Chest Pain Potassium Ext Rel (Klor-Con), 20 MEQ PO BID PRN for LEG CRAMPS Sumatriptan Succinate (Imitrex), 25 MG PO DIRECTED PRN for Migraine Allergies Coded Allergies: Benzyl Alcohol (Verified Allergy, Severe, ANAPHYLAXIS, 12/07/17) Saccharin (Verified Allergy, Severe, ANAPHYLAXIS, 12/07/17) Iodinated Diagnostic Agents (Verified Allergy, Intermediate, Rash - IVP dye, 12/07/17) Furosemide (Verified Allergy, Mild, rash, 12/07/17) Prochlorperazine (Verified Allergy, Mild, rash, 12/07/17) Promethazine (Verified Allergy, Mild, rash, 12/07/17) Physical Exam Vital Signs Date Time Temp Pulse Resp B/P (MAP) Pulse Ox O2 Delivery O2 Flow Rate FiO2 12/07/17 14:44 81 16 108/54 96 12/07/17 13:57 82 16 112/58 92 Room Air 12/07/17 12:30 82 21 123/68 96 Room Air 12/07/17 12:10 81 12/07/17 11:30 83 19 127/73 94 Room Air 12/07/17 11:20 100 Room Air 12/07/17 10:54 37.2 83 20 107/71 92 Room Air Physical Exam GENERAL: Awake, alert, uncomfortable and fatigued-appearing, in no distress HENT: Normocephalic, atraumatic. Oropharynx unremarkable. Dry mucus membranes. Boggy nasal turbinates, mild maxillary and frontal sinus tenderness. EYES: Normal conjunctiva. Sclera non-icteric. NECK: Supple. No nuchal rigidity. FROM. No JVD. RESPIRATORY: Diminished breath sounds at bases with scant intermittent wheezes. CARDIAC: Regular rate, normal rhythm. Extremities warm and well perfused. Pulses equal. ABDOMEN: Soft, non-distended. No tenderness to palpation. No rebound or guarding. No masses. RECTAL: Deferred. MUSCULOSKELETAL: Chest examination reveals no tenderness. The back is symmetrical on inspection without obvious abnormality. There is no CVA tenderness to palpation. No joint edema. LOWER EXTREMITIES: Mild tenderness to left anterior knee and proximal tibia, mild swelling, erythema and tenderness to distal secondary and third phalanges of the left foot. NEURO: Normal sensorium. No sensory or motor deficits noted. SKIN: No rash or jaundice noted. Medical Decision & Procedures ER Provider Diagnostic Interpretation: Radiology results as stated below per my review and radiologist interpretation: CHEST ONE VIEW PORTABLE FINDINGS: The heart is mildly enlarged. There are postsurgical changes of a midline sternotomy. There is mild chronic interstitial thickening. There is no focal pulmonary consolidation. There are no pleural effusions. There is no pneumothorax.[Chronic postsurgical changes involve the distal left clavicle. IMPRESSION: Stable mild cardiomegaly and interstitial thickening. No evidence of focal pulmonary consolidation. No evidence of pneumothorax. Electronically signed by: Filomena Connor TIBIA/FIBULA 2 VIEWS ROUTINE DISCUSSION: The bones and joint spaces appear intact. There is no evidence of fracture, dislocation or bony disease. There is no evidence for soft tissue swelling. IMPRESSION: Negative study. The above report was generated using voice recognition software. It may contain grammatical, syntax or spelling errors. Electronically signed by: Filomena Baker KNEE 3 VIEWS DISCUSSION: The bones and joint spaces appear intact. There is no evidence of fracture, dislocation or bony disease. There is no evidence for soft tissue swelling. IMPRESSION: Negative study. The above report was generated using voice recognition software. It may contain grammatical, syntax or spelling errors. Electronically signed by: Filomena Baker FOOT MIN 3 VIEWS ROUTINE DISCUSSION: Mild degenerative change of the interphalangeal joints. Small heel spur. No acute bony abnormality. There is no evidence for soft tissue swelling. IMPRESSION: No acute process. Mild degenerative change. The above report was generated using voice recognition software. It may contain grammatical, syntax or spelling errors. Electronically signed by: Gatito Pugh M.D. Laboratory Results 12/07/17 11:36 Red Blood Count 4.37, Mean Corpuscular Volume 88.8, Mean Corpuscular Hemoglobin 28.6, Mean Corpuscular Hemoglobin Concent 32.2, Mean Platelet Volume 10.6, Neutrophils (%) (Auto) 76.4, Lymphocytes (%) (Auto) 13.9, Monocytes (%) (Auto) 8.9, Eosinophils (%) (Auto) 0.2, Basophils (%) (Auto) 0.2, Neutrophils # (Auto) 3.67, Lymphocytes # (Auto) 0.67, Monocytes # (Auto) 0.43, Eosinophils # (Auto) 0.01, Basophils # (Auto) 0.01 12/07/17 11:36 Test 12/07/17 11:26 12/07/17 11:36 Influenza Type A (RT-PCR) Neg for Influ A (NEG) Influenza Type B (RT-PCR) POS for Influ B (NEG) White Blood Count 4.81 K/uL (4.8-10.8) Red Blood Count 4.37 M/uL (4.2-5.4) Hemoglobin 12.5 g/dL (12.0-16.0) Hematocrit 38.8 % (37-47) Mean Corpuscular Volume 88.8 fL (80-100) Mean Corpuscular Hemoglobin 28.6 pg (25-34) Mean Corpuscular Hemoglobin Concent 32.2 g/dl (32-36) Platelet Count 136 K/uL (130-400) Mean Platelet Volume 10.6 fL (7.4-10.4) Neutrophils (%) (Auto) 76.4 % Lymphocytes (%) (Auto) 13.9 % Monocytes (%) (Auto) 8.9 % Eosinophils (%) (Auto) 0.2 % Basophils (%) (Auto) 0.2 % Neutrophils # (Auto) 3.67 K/uL (1.4-6.5) Lymphocytes # (Auto) 0.67 K/uL (1.2-3.4) Monocytes # (Auto) 0.43 K/uL (0.11-0.59) Eosinophils # (Auto) 0.01 K/uL (0-0.5) Basophils # (Auto) 0.01 K/uL (0-0.2) RDW Standard Deviation 51.8 fL (36.4-46.3) RDW Coefficient of Variation 16.0 % (11.5-14.5) Immature Granulocyte % (Auto) 0.4 % Immature Granulocyte # (Auto) 0.02 K/uL (0.00-0.02) Anion Gap 11.0 mmol/L (3-11) Estimated GFR () 86.3 Estimated GFR (Non- 74.5 BUN/Creatinine Ratio 15.8 (10-20) Calcium Level 8.1 mg/dl (8.5-10.1) Magnesium Level 1.9 mg/dl (1.8-2.4) Total Bilirubin 0.3 mg/dl (0.2-1) Direct Bilirubin 0.1 mg/dl (0-0.2) Aspartate Amino Transf (AST/SGOT) 32 U/L (15-37) Alanine Aminotransferase (ALT/SGPT) 23 U/L (12-78) Alkaline Phosphatase 156 U/L (45-117) Troponin I < 0.015 ng/ml (0-0.045) Pro-B-Type Natriuretic Peptide 1299 pg/ml (0-900) Total Protein 5.8 gm/dl (6.4-8.2) Albumin 2.4 gm/dl (3.4-5.0) Lipase 46 U/L (73-393) Laboratory results reviewed by me Medications Administered Medications (Trade) Dose Ordered Sig/Boni Route Start Time Stop Time Status Last Admin Dose Admin Sodium Chloride 500 ml @ 999 mls/hr Q31M STAT IV 12/07/17 11:04 12/07/17 11:34 DC 12/07/17 11:30 999 MLS/HR Ondansetron HCl (Zofran Inj) 4 mg NOW STAT IV 12/07/17 11:04 12/07/17 11:10 DC 12/07/17 11:30 4 MG Albuterol/ Ipratropium (Duoneb) 3 ml NOW STAT INH 12/07/17 11:04 12/07/17 11:10 DC 12/07/17 11:30 3 ML Sodium Chloride (Piatt Nasal [place]) 2 sprays NOW ONCE NA 12/07/17 11:15 3/23/18 11:16 DC 12/07/17 11:29 2 SPRAYS Oxycodone/ Acetaminophen (Percocet 5-325mg Tab) 1 tab NOW ONCE PO 12/07/17 12:15 12/07/17 12:16 DC 12/07/17 12:26 1 TAB Oseltamivir Phosphate (Tamiflu Cap) 75 mg NOW STAT PO 12/07/17 12:43 12/07/17 12:44 DC 12/07/17 12:56 75 MG ECG Per My Interpretation Indication: weakness Rate (beats per minute): 80 Rhythm: normal sinus Findings: no acute ischemic change, left axis deviation Comparison ECG Date: 02/20/17 Change: no significant change ED Course 1102: The patient was evaluated in room C9. A complete history and physical exam was performed. 1442: I reevaluated the patient. Discussed results and discharge instructions: She verbalized understanding and agreement. The patient is ready for discharge. Medical Decision I reviewed the patient's past medical history, medications, and the nursing notes as described above. Differential diagnosis: Etiologies such as infections, reactive airway disease, pneumonia, pneumothorax , COPD, CHF, cardiac ischemia, pulmonary embolism, musculoskeletal, gastrointestinal, fracture, dislocation, ligamentous injury, soft tissue injury as well as others were entertained. The patient is a 61-year-old woman with a pmhx of CAD s/p stents, CHF, COPD who presents to emergency department with worsening cough congestion and body aches over the past couple of days resulting in a mechanical fall with pain to her left knee and left foot per hpi. On arrival the patient is fatigued appearing but no acute distress, afebrile with stable vital signs. Patient was found to be influenza B positive. Labs otherwise unremarkable including WBC within normal limits. Chest x-ray negative for pneumonia. Plain films of the left knee tib-fib and foot negative for fracture. Thus, likely contusion versus sprain. She was given Tamiflu and IV fluids and was subsequently feeling improved. Findings and plan for follow-up reviewed with patient. Patient agreeable and d/c'd per discharge instructions. Medication Reconcilliation Current Medication List: was personally reviewed by me Blood Pressure Screening Patient's blood pressure: Normal blood pressure Impression Primary Impression: Influenza B Scribe Attestation The scribe's documentation has been prepared under my direction and personally reviewed by me in its entirety. I confirm that the note above accurately reflects all work, treatment, procedures, and medical decision making performed by me. Departure Information Dispostion Home / Self-Care Prescriptions Oseltamivir Phosphate (Tamiflu) 75 Mg Cap 75 MG PO BID, #10 CAP Prov: Chau Garrison M.D. 12/07/17 Referrals Marcos Jung M.D. (PCP) Forms HOME CARE DOCUMENTATION FORM, IMPORTANT VISIT INFORMATION Patient Instructions ED Contusion Foot, ED Flu, ED RICE, ED Sprain Knee, [facility] Additional Instructions Please follow up with your primary care physician in the next 1-3 days for re- evaluation. You were found to have the flu (influenza B). Otherwise, your exam, EKG, xrays, and lab results did not show signs of an emergent condition at this time. Tamiflu as directed. Acetaminophen for pain and fevers as needed. Continue your home Prilosec and Zofran. Saline nasal spray and [id number] Mucinex to help thin and clear mucus as needed. Use your albuterol inhaler 2 puffs every 4 hours for the next 48 hours and then as needed thereafter. Return to the emergency department for worsening symptoms as described in the accompanying instructions.
[2017-12-07 11:40] LABS: BASO % 0.2 %; BASO ABS # 0.01 K/uL (0-0.2); EOS % 0.2 %; EOS ABS # 0.01 K/uL (0-0.5); HEMATOCRIT 38.8 % (37-47); HEMOGLOBIN 12.5 g/dL (12.0-16.0); IG# 0.02 K/uL (0.00-0.02); LYMPH % 13.9 %; LYMPH ABS # 0.67 K/uL (1.2-3.4); MEAN CELL VOLUME 88.8 fL (80-100); MEAN CORPUSCULAR HEMOGLOBIN 28.6 pg (25-34); MEAN CORPUSCULAR HGB CONC 32.2 g/dl (32-36); MEAN PLATELET VOLUME 10.6 fL (7.4-10.4); MONO % 8.9 %; MONO ABS # 0.43 K/uL (0.11-0.59); NEUT % 76.4 %; NEUT ABS # 3.67 K/uL (1.4-6.5); PLATELET COUNT 136 K/uL (130-400); RED CELL DISTRIBUTION WIDTH SD 51.8 fL (36.4-46.3); WHITE BLOOD COUNT 4.81 K/uL (4.8-10.8)
[2017-12-07 11:53] LABS: ALBUMIN 2.4 gm/dl (3.4-5.0); ALT/SGPT 23 U/L (12-78); BLOOD UREA NITROGEN 13 mg/dl (7-18); CALCIUM 8.1 mg/dl (8.5-10.1); CARBON DIOXIDE 20 mmol/L (21-32); CREATININE 0.84 mg/dl (0.60-1.20); GLUCOSE 84 mg/dl (70-99); LIPASE 46 U/L (73-393); POTASSIUM 3.6 mmol/L (3.5-5.1); SODIUM 136 mmol/L (136-145)
[2017-12-07 11:58] LABS: ALKALINE PHOSPHATASE 156 U/L (45-117); AST/SGOT 32 U/L (15-37); TOTAL PROTEIN 5.8 gm/dl (6.4-8.2)
--- NOTE | 2017-12-07 11:58 | DIAGNOSTIC IMAGING REPORT ---
CHEST ONE VIEW PORTABLE CLINICAL HISTORY: Difficult chest pain. Trauma. COMPARISON STUDY: 02/20/2017 FINDINGS: The heart is mildly enlarged. There are postsurgical changes of a midline sternotomy. There is mild chronic interstitial thickening. There is no focal pulmonary consolidation. There are no pleural effusions. There is no pneumothorax.[Chronic postsurgical changes involve the distal left clavicle. IMPRESSION: Stable mild cardiomegaly and interstitial thickening. No evidence of focal pulmonary consolidation. No evidence of pneumothorax. Electronically signed by: Diomedes Benavides M.D. 12/07/2017 11:56 AM Dictated Date/Time: 12/07/2017 11:56 AM
[2017-12-07] MEDS ORDERED: OXYCODONE/ACETAMINOPHEN 5-325 TAB PO ONE (12:15)
[2017-12-07 12:17] LABS: INFLUENZA A PCR Neg for Influ A (NEG)
[2017-12-07 12:21] LABS: INFLUENZA B PCR POS for Influ B (NEG)
[2017-12-07] MEDS ORDERED: OSELTAMIVIR PHOSPHATE 75 MG CAP PO STA (12:43)
--- NOTE | 2017-12-07 13:57 | DIAGNOSTIC IMAGING REPORT ---
L FOOT MIN 3 VIEWS ROUTINE CLINICAL HISTORY: pain fall trauma. Pain. COMPARISON: None. DISCUSSION: Mild degenerative change of the interphalangeal joints. Small heel spur. No acute bony abnormality. There is no evidence for soft tissue swelling. IMPRESSION: No acute process. Mild degenerative change. The above report was generated using voice recognition software. It may contain grammatical, syntax or spelling errors. Electronically signed by: Gatito Pugh M.D. 12/07/2017 1:55 PM Dictated Date/Time: 12/07/2017 1:54 PM
--- NOTE | 2017-12-07 13:57 | DIAGNOSTIC IMAGING REPORT ---
L TIBIA/FIBULA 2 VIEWS ROUTINE CLINICAL HISTORY: pain fall trauma. Pain. COMPARISON: None. DISCUSSION: The bones and joint spaces appear intact. There is no evidence of fracture, dislocation or bony disease. There is no evidence for soft tissue swelling. IMPRESSION: Negative study. The above report was generated using voice recognition software. It may contain grammatical, syntax or spelling errors. Electronically signed by: Gatito Pugh M.D. 12/07/2017 1:56 PM Dictated Date/Time: 12/07/2017 1:55 PM
--- NOTE | 2017-12-07 13:58 | DIAGNOSTIC IMAGING REPORT ---
L KNEE 3 VIEWS CLINICAL HISTORY: pain fall trauma. Pain. COMPARISON: None. DISCUSSION: The bones and joint spaces appear intact. There is no evidence of fracture, dislocation or bony disease. There is no evidence for soft tissue swelling. IMPRESSION: Negative study. The above report was generated using voice recognition software. It may contain grammatical, syntax or spelling errors. Electronically signed by: Gatito Pugh M.D. 12/07/2017 1:56 PM Dictated Date/Time: 12/07/2017 1:56 PM
[2017-12-07] MEDS ORDERED: OSEL75CA23 PO (14:33)
[2017-12-07 14:44] VITALS: BP 108/54; PULSE 81; O2SAT 96
== END 2017-12-07 14:46 | disposition home or self-care (01) ==
LOC: C.EDB 10:42 → C.EDC 14:46
DX: J10.1 Influenza due to other identified influenza virus with other respiratory manifestations (principal); M79.675 Pain in left toe(s); M25.562 Pain in left knee; J44.9 Chronic obstructive pulmonary disease, unspecified; I11.0 Hypertensive heart disease with heart failure; I25.10 Atherosclerotic heart disease of native coronary artery without angina pectoris; I50.9 Heart failure, unspecified; F41.9 Anxiety disorder, unspecified; F17.200 Nicotine dependence, unspecified, uncomplicated; Z88.8 Allergy status to other drugs, medicaments and biological substances; Z91.048 Other nonmedicinal substance allergy status; Z91.041 Radiographic dye allergy status; Z79.82 Long term (current) use of aspirin; Z83.3 Family history of diabetes mellitus; Z82.49 Family history of ischemic heart disease and other diseases of the circulatory system; Z84.1 Family history of disorders of kidney and ureter

== ENCOUNTER 2017-12-14 18:46 | Emergency (ER) | payer OTHER ==
[~2017-12-14] VITALS: Ht 160 cm; Wt 63.0 kg
[~2017-12-14 18:46] MED LIST changes: -ASPI81TA28 PO; -ATV/1 PO; -CHOL1000 PO; -FOLI800T17 PO; -NRN/600 PO; +OSEL75CA23 PO; -PRAV40TA2 PO; -VNTHFA/IN INH
[2017-12-14 18:47] VITALS: TEMP 36.4; Ht 160 cm; Wt 63.0 kg
[2017-12-14] MEDS ORDERED: SODIUM CHLORIDE 0.9% 250ML 250 ML IV STA (19:08)
--- NOTE | 2017-12-14 19:41 | DIAGNOSTIC IMAGING REPORT ---
SINGLE VIEW CHEST CLINICAL HISTORY: Atypical chest pain. FINDINGS: An AP, portable, upright chest radiograph is compared to study dated 12/07/2017. The examination is degraded by portable technique and patient rotation. The patient is status post midline sternotomy. The heart is enlarged and there is atherosclerotic calcification of the thoracic aorta. The pulmonary vasculature is noncongested. Chronic interstitial thickening is similar to previous. Linear atelectasis is noted in the left lower lung. A calcified granuloma is again noted at the left apex. No airspace consolidation or large pleural effusion is identified. No pneumothorax is seen. The skeletal structures are osteopenic. The bony thorax is grossly intact. IMPRESSION: Cardiomegaly with no acute cardiopulmonary abnormality. Electronically signed by: Terry Oscar M.D. 12/14/2017 7:40 PM Dictated Date/Time: 12/14/2017 7:39 PM
[2017-12-14 20:20] LABS: BASO % 0.2 %; BASO ABS # 0.02 K/uL (0-0.2); EOS % 1.4 %; EOS ABS # 0.13 K/uL (0-0.5); HEMATOCRIT 40.9 % (37-47); HEMOGLOBIN 13.8 g/dL (12.0-16.0); IG# 0.04 K/uL (0.00-0.02); LYMPH % 20.5 %; LYMPH ABS # 1.94 K/uL (1.2-3.4); MEAN CELL VOLUME 85.2 fL (80-100); MEAN CORPUSCULAR HEMOGLOBIN 28.8 pg (25-34); MEAN CORPUSCULAR HGB CONC 33.7 g/dl (32-36); MEAN PLATELET VOLUME 10.8 fL (7.4-10.4); MONO % 6.8 %; MONO ABS # 0.64 K/uL (0.11-0.59); NEUT % 70.7 %; NEUT ABS # 6.68 K/uL (1.4-6.5); PLATELET COUNT 207 K/uL (130-400); RED CELL DISTRIBUTION WIDTH CV 16.2 % (11.5-14.5); RED CELL DISTRIBUTION WIDTH SD 50.4 fL (36.4-46.3); WHITE BLOOD COUNT 9.45 K/uL (4.8-10.8)
[2017-12-14 20:35] LABS: ALBUMIN 2.7 gm/dl (3.4-5.0); ALT/SGPT 13 U/L (12-78); BLOOD UREA NITROGEN 14 mg/dl (7-18); CALCIUM 8.9 mg/dl (8.5-10.1); CARBON DIOXIDE 23 mmol/L (21-32); CREATININE 0.89 mg/dl (0.60-1.20); GLUCOSE 85 mg/dl (70-99); LIPASE 59 U/L (73-393); POTASSIUM 2.8 mmol/L (3.5-5.1); SODIUM 142 mmol/L (136-145)
[2017-12-14] MEDS ORDERED: POTASSIUM CHLORIDE 10 MEQ / 100ML WTR IV STA (20:39)
[2017-12-14] MEDS ORDERED: SODIUM CHLORIDE 0.9% 1000ML 1,000 ML IV STA (20:39)
[2017-12-14] MEDS ORDERED: ALBUT/IPRATROP 3MG/0.5MG NEB 3 ML VIAL INH STA (20:39)
[2017-12-14] MEDS ORDERED: MAGNESIUM SULFATE 1GM / D5W 1 GM BAG IV STA (20:39)
[2017-12-14 20:41] LABS: ALKALINE PHOSPHATASE 155 U/L (45-117); AST/SGOT 14 U/L (15-37); TOTAL PROTEIN 7.1 gm/dl (6.4-8.2)
--- NOTE | 2017-12-14 20:49 | DIAGNOSTIC IMAGING REPORT ---
CT SCAN OF THE BRAIN WITHOUT IV CONTRAST CLINICAL HISTORY: Generalized weakness. Aphasia. COMPARISON STUDY: MRI of the brain dated 03/16/2017. TECHNIQUE: Unenhanced axial CT scan of the brain is performed from the vertex to the skull base. A dose lowering technique was utilized adhering to the principles of ALARA. CT DOSE: 638.56 mGycm FINDINGS: Brain parenchyma: There is mild subcortical and periventricular microangiopathic disease. There is no hemorrhage, mass effect, or evidence of acute territorial ischemia by CT criteria. Daugherty-white matter is preserved. No extra-axial fluid collection is seen. Ventricles, sulci, cisterns: Normal in configuration. Intracranial vasculature: There is atherosclerotic calcification of the cavernous carotid and vertebral arteries. Calvarium: Unremarkable. Sinuses and mastoids: The visualized paranasal sinuses are clear. There is a left mastoid effusion. The right mastoid air cells are well pneumatized. Orbits: The bony orbits are grossly intact. IMPRESSION: There is no hemorrhage, mass effect, or evidence of acute territorial ischemia by CT criteria. Electronically signed by: Terry Oscar M.D. 12/14/2017 8:48 PM Dictated Date/Time: 12/14/2017 8:46 PM
[2017-12-14] MEDS ORDERED: NRN/600 PO (21:08)
[2017-12-14] MEDS ORDERED: ATV/1 PO (21:08)
[2017-12-14] MEDS ORDERED: ASPI81TA28 PO (21:08)
[2017-12-14] MEDS ORDERED: PRAV40TA2 PO (21:08)
[2017-12-14] MEDS ORDERED: VNTHFA/IN INH (21:14)
[2017-12-14] MEDS ORDERED: CHOL1000 PO (21:15)
[2017-12-14] MEDS ORDERED: FOLI800T17 PO (21:15)
[2017-12-14 22:19] VITALS: O2SAT 94
--- NOTE | 2017-12-14 22:25 | DIAGNOSTIC IMAGING REPORT ---
MRI OF THE BRAIN WITHOUT IV CONTRAST CLINICAL HISTORY: Generalized weakness. Aphasia. COMPARISON STUDY: CT of the brain dated 12/14/2017. TECHNIQUE: MRI of the brain was performed utilizing various T1 and T2-weighted sequences in the axial, sagittal, and coronal planes. IV contrast was not administered for this examination. FINDINGS: Brain parenchyma: There is minimal patchy subcortical and periventricular microangiopathic disease. There is no hemorrhage or mass effect. There is no restricted diffusion to suggest acute ischemia. Daugherty-white matter differentiation is preserved. No extra-axial fluid collection is seen. The cerebellar tonsils are normal in configuration. Ventricles, sulci, and cisterns: Normal in configuration. Pituitary and sella: Unremarkable. Intracranial vasculature: Normal flow voids are maintained at the skull base. Orbits: The bony orbits are grossly intact. Orbital contents are normal in appearance. Sinuses and mastoids: There is a left mastoid effusion. The right mastoid air cells and paranasal sinuses are clear. Calvarium: Unremarkable. Cervical cord: Partially visualized cervical spinal cord is normal in morphology and signal intensity. IMPRESSION: No acute intracranial abnormality. Electronically signed by: Terry Oscar M.D. 12/14/2017 10:23 PM Dictated Date/Time: 12/14/2017 10:21 PM
--- NOTE | 2017-12-14 22:43 | EMERGENCY ROOM VISIT NOTE ---
History Report prepared by Charles: Riya Manjarrez Under the Supervision of: Dr. Chau Garrison M.D. First contact with patient: 18:54 Chief Complaint: STROKE SYMPTOMS Stated Complaint: TROUBLE WALKING, TALKING, DOUBLE VISION History of Present Illness The patient is a 61 year old female who presents to the Emergency Room with complaints of worsening weakness starting 1 week ago. The patient was seen in the ED last week with flu. She has become increasingly weak at home since then. She has had some trouble walking and has been tripping more frequently. Today she went to [facility] and was stumbling there. When the patient's daughter spoke with her around 1600, her speech was normal. Her speech has become slower since then. She reports double vision. She was unable to write her name today. Her cough has become more productive and she has noticed some rattling when she breathes. She reports body aches. She has not been eating well. She has a history of Lyme disease with Castine palsy. She notes that she was started on vitamin B12 pills last week. She has had a reaction with vitamin B12 injections in the past. Source of History: patient, family Onset: 1 week ago Position: other (generalized) Quality: other (weakness) Timing: worsening Associated Symptoms: + cough Note: Pt reports slow speech, double vision. Review of Systems See HPI for pertinent positives and negatives. A total of ten systems were reviewed and were otherwise negative. Past Medical & Surgical Medical Problems: (1) Abdominal pain (2) Acute bronchitis (3) Anemia (4) Anxiety disorder (5) Benign hypertension (6) Chronic pain syndrome (7) COPD exacerbation (8) CORONARY ATHEROSCLEROSIS OF [place] CORONARY VESSEL (9) History CABG (10) History exploratory lap (11) History L shoulder surgery (12) History of appendectomy (13) History of cholecystectomy (14) History of total hysterectomy (15) Leukocytosis (16) Tobacco user (17) Unstable angina (18) UTI (urinary tract infection) (19) Vomiting Family History Diabetes mellitus FH: cancer FH: heart disease Hypertension Kidney stones Social History Smoking Status: Current Every Day Smoker Alcohol Use: none Drug Use: none Marital Status: Housing Status: lives with significant other Occupation Status: disabled Current/Historical Medications Scheduled Aspirin (Aspirin Ec), 81 MG PO DAILY Cholecalciferol (Vitamin D3), 1 TAB PO DAILY Folic Acid (Cvs Folic Acid), 1 TAB PO DAILY Gabapentin (Neurontin), 600 MG PO QID Lorazepam (Ativan), 1 MG PO 5XD Losartan Potassium (Cozaar), 50 MG PO BID Metoprolol Succinate (Metoprolol Succinate ER), 25 MG PO DAILY Omeprazole (Prilosec), 40 MG PO DAILY Ondansetron (Ondansetron HCl), 8 MG PO DAILY Oxycodone Hcl (Oxycodone Hcl), 15 MG PO QID Pravastatin Sodium (Pravastatin Sodium), 40 MG PO QD@1600 Scheduled PRN Albuterol Hfa (Ventolin Hfa), 2 PUFFS INH Q6H PRN for SOB/Wheezing Bumetanide (Bumex), 1 MG PO DAILY PRN for PRN Nitroglycerin (Nitrostat), 0.4 MG UT UD PRN for Chest Pain Potassium Ext Rel (Klor-Con), 20 MEQ PO BID PRN for LEG CRAMPS Sumatriptan Succinate (Imitrex), 25 MG PO DIRECTED PRN for Migraine Allergies Coded Allergies: Benzyl Alcohol (Verified Allergy, Severe, ANAPHYLAXIS, 12/07/17) Saccharin (Verified Allergy, Severe, ANAPHYLAXIS, 12/07/17) Iodinated Diagnostic Agents (Verified Allergy, Intermediate, Rash - IVP dye, 12/07/17) Furosemide (Verified Allergy, Mild, rash, 12/07/17) Prochlorperazine (Verified Allergy, Mild, rash, 12/07/17) Promethazine (Verified Allergy, Mild, rash, 12/07/17) Physical Exam Vital Signs Date Time Temp Pulse Resp B/P (MAP) Pulse Ox O2 Delivery O2 Flow Rate FiO2 12/15/17 00:11 65 18 172/89 97 12/14/17 23:35 73 18 152/93 93 Room Air 12/14/17 22:20 85 18 148/74 96 Nasal Cannula 12/14/17 22:19 94 Nasal Cannula 2.0 12/14/17 22:18 88 Room Air 12/14/17 21:24 67 153/92 92 Room Air 12/14/17 21:01 146/80 12/14/17 21:00 63 17 12/14/17 20:57 64 12/14/17 20:54 62 16 148/73 93 Room Air 12/14/17 20:27 63 18 136/70 93 Room Air 12/14/17 19:11 70 15 130/90 94 Room Air 12/14/17 19:11 94 Room Air 12/14/17 18:47 36.4 86 16 130/87 94 Room Air Physical Exam GENERAL: Awake, alert, fatigued, uncomfortable appearing, in no distress HENT: Normocephalic, atraumatic. Dry cracked mucous membranes. EYES: Normal conjunctiva. Sclera non-icteric. NECK: Supple. No nuchal rigidity. FROM. No JVD. RESPIRATORY: Diminished breath sounds at the bases with intermittent wheezes. CARDIAC: Regular rate, normal rhythm. Extremities warm and well perfused. Pulses equal. ABDOMEN: Soft, non-distended. No tenderness to palpation. No rebound or guarding. No masses. RECTAL: Deferred. MUSCULOSKELETAL: Chest examination reveals no tenderness. The back is symmetrical on inspection without obvious abnormality. There is no CVA tenderness to palpation. No joint edema. LOWER EXTREMITIES: Calves are equal size bilaterally and non-tender. No edema. No discoloration. NEURO: Normal sensorium. 4/5 strength in all extremities. SILT. Normal cerebellar function with [id number], alternating palms. SKIN: No rash or jaundice noted. Medical Decision & Procedures ER Provider Diagnostic Interpretation: Radiology results as stated below per my review and radiologist interpretation: SINGLE VIEW CHEST CLINICAL HISTORY: Atypical chest pain. FINDINGS: An AP, portable, upright chest radiograph is compared to study dated 12/07/2017. The examination is degraded by portable technique and patient rotation. The patient is status post midline sternotomy. The heart is enlarged and there is atherosclerotic calcification of the thoracic aorta. The pulmonary vasculature is noncongested. Chronic interstitial thickening is similar to previous. Linear atelectasis is noted in the left lower lung. A calcified granuloma is again noted at the left apex. No airspace consolidation or large pleural effusion is identified. No pneumothorax is seen. The skeletal structures are osteopenic. The bony thorax is grossly intact. IMPRESSION: Cardiomegaly with no acute cardiopulmonary abnormality. Electronically signed by: Terry Oscar M.D. 12/14/2017 7:40 PM Dictated Date/Time: 12/14/2017 7:[address] SCAN OF THE BRAIN WITHOUT IV CONTRAST CLINICAL HISTORY: Generalized weakness. Aphasia. COMPARISON STUDY: MRI of the brain dated 03/16/2017. TECHNIQUE: Unenhanced axial CT scan of the brain is performed from the vertex to the skull base. A dose lowering technique was utilized adhering to the principles of ALARA. CT DOSE: 638.56 mGycm FINDINGS: Brain parenchyma: There is mild subcortical and periventricular microangiopathic disease. There is no hemorrhage, mass effect, or evidence of acute territorial ischemia by CT criteria. Daugherty-white matter is preserved. No extra-axial fluid collection is seen. Ventricles, sulci, cisterns: Normal in configuration. Intracranial vasculature: There is atherosclerotic calcification of the cavernous carotid and vertebral arteries. Calvarium: Unremarkable. Sinuses and mastoids: The visualized paranasal sinuses are clear. There is a left mastoid effusion. The right mastoid air cells are well pneumatized. Orbits: The bony orbits are grossly intact. IMPRESSION: There is no hemorrhage, mass effect, or evidence of acute territorial ischemia by CT criteria. Electronically signed by: Terry Oscar M.D. 12/14/2017 8:48 PM Dictated Date/Time: 12/14/2017 8:46 PM MRI OF THE BRAIN WITHOUT IV CONTRAST CLINICAL HISTORY: Generalized weakness. Aphasia. COMPARISON STUDY: CT of the brain dated 12/14/2017. TECHNIQUE: MRI of the brain was performed utilizing various T1 and T2-weighted sequences in the axial, sagittal, and coronal planes. IV contrast was not administered for this examination. FINDINGS: Brain parenchyma: There is minimal patchy subcortical and periventricular microangiopathic disease. There is no hemorrhage or mass effect. There is no restricted diffusion to suggest acute ischemia. Daugherty-white matter differentiation is preserved. No extra-axial fluid collection is seen. The cerebellar tonsils are normal in configuration. Ventricles, sulci, and cisterns: Normal in configuration. Pituitary and sella: Unremarkable. Intracranial vasculature: Normal flow voids are maintained at the skull base. Orbits: The bony orbits are grossly intact. Orbital contents are normal in appearance. Sinuses and mastoids: There is a left mastoid effusion. The right mastoid air cells and paranasal sinuses are clear. Calvarium: Unremarkable. Cervical cord: Partially visualized cervical spinal cord is normal in morphology and signal intensity. IMPRESSION: No acute intracranial abnormality. Electronically signed by: Terry Oscar M.D. 12/14/2017 10:23 PM Dictated Date/Time: 12/14/2017 10:21 PM Laboratory Results 12/14/17 20:07 Red Blood Count 4.80, Mean Corpuscular Volume 85.2, Mean Corpuscular Hemoglobin 28.8, Mean Corpuscular Hemoglobin Concent 33.7, Mean Platelet Volume 10.8, Neutrophils (%) (Auto) 70.7, Lymphocytes (%) (Auto) 20.5, Monocytes (%) (Auto) 6.8, Eosinophils (%) (Auto) 1.4, Basophils (%) (Auto) 0.2, Neutrophils # (Auto) 6.68, Lymphocytes # (Auto) 1.94, Monocytes # (Auto) 0.64, Eosinophils # (Auto) 0.13, Basophils # (Auto) 0.02 12/14/17 20:07 Test 12/14/17 20:07 12/14/17 22:37 White Blood Count 9.45 K/uL (4.8-10.8) Red Blood Count 4.80 M/uL (4.2-5.4) Hemoglobin 13.8 g/dL (12.0-16.0) Hematocrit 40.9 % (37-47) Mean Corpuscular Volume 85.2 fL (80-100) Mean Corpuscular Hemoglobin 28.8 pg (25-34) Mean Corpuscular Hemoglobin Concent 33.7 g/dl (32-36) Platelet Count 207 K/uL (130-400) Mean Platelet Volume 10.8 fL (7.4-10.4) Neutrophils (%) (Auto) 70.7 % Lymphocytes (%) (Auto) 20.5 % Monocytes (%) (Auto) 6.8 % Eosinophils (%) (Auto) 1.4 % Basophils (%) (Auto) 0.2 % Neutrophils # (Auto) 6.68 K/uL (1.4-6.5) Lymphocytes # (Auto) 1.94 K/uL (1.2-3.4) Monocytes # (Auto) 0.64 K/uL (0.11-0.59) Eosinophils # (Auto) 0.13 K/uL (0-0.5) Basophils # (Auto) 0.02 K/uL (0-0.2) RDW Standard Deviation 50.4 fL (36.4-46.3) RDW Coefficient of Variation 16.2 % (11.5-14.5) Immature Granulocyte % (Auto) 0.4 % Immature Granulocyte # (Auto) 0.04 K/uL (0.00-0.02) Prothrombin Time 10.5 SECONDS (9.0-12.0) Prothromb Time International Ratio 1.0 (0.9-1.1) Venous Blood pH 7.34 (7.36-7.41) Venous Blood Partial Pressure CO2 40 mmHg (38.0-50.0) Venous Blood Partial Pressure O2 36 mmHg Venous Blood HCO3 21 mmol/L Venous Blood Oxygen Saturation 63.8 % Venous Blood Base Excess -4.5 mEq/L Anion Gap 7.0 mmol/L (3-11) Est Creatinine Clear Calc Drug Dose 58.6 ml/min Estimated GFR () 80.5 Estimated GFR (Non- 69.5 BUN/Creatinine Ratio 15.2 (10-20) Lactic Acid Level 1.4 mmol/L (0.4-2.0) Calcium Level 8.9 mg/dl (8.5-10.1) Phosphorus Level 4.0 mg/dl (2.5-4.9) Magnesium Level 1.8 mg/dl (1.8-2.4) Total Bilirubin 0.3 mg/dl (0.2-1) Direct Bilirubin 0.1 mg/dl (0-0.2) Aspartate Amino Transf (AST/SGOT) 14 U/L (15-37) Alanine Aminotransferase (ALT/SGPT) 13 U/L (12-78) Alkaline Phosphatase 155 U/L (45-117) Troponin I < 0.015 ng/ml (0-0.045) Pro-B-Type Natriuretic Peptide 4491 pg/ml (0-900) Total Protein 7.1 gm/dl (6.4-8.2) Albumin 2.7 gm/dl (3.4-5.0) Lipase 59 U/L (73-393) Urine Color YELLOW Urine Appearance CLEAR (CLEAR) Urine pH 7.0 (4.5-7.5) Urine Specific [place] 1.018 (1.000-1.030) Urine Protein 1+ (NEG) Urine Glucose (UA) NEG (NEG) Urine Ketones TRACE (NEG) Urine Occult Blood NEG (NEG) Urine Nitrite NEG (NEG) Urine Bilirubin NEG (NEG) Urine Urobilinogen NEG (NEG) Urine Leukocyte Esterase NEG (NEG) Urine WBC (Auto) 1-5 /hpf (0-5) Urine RBC (Auto) 0-4 /hpf (0-4) Urine Hyaline Casts (Auto) 5-10 /lpf (0-5) Urine Epithelial Cells (Auto) >30 /lpf (0-5) Urine Bacteria (Auto) NEG (NEG) Urine Renal Epithelial Cells 0-5 /lpf (0-5) Urine Pathogenic Casts 1-5 GRANULAR CASTS /lpf (0) Laboratory results reviewed by me Medications Administered Medications (Trade) Dose Ordered Sig/Boni Route Start Time Stop Time Status Last Admin Dose Admin Sodium Chloride 250 ml @ 999 mls/hr Q16M STAT IV 12/14/17 19:08 12/14/17 19:23 DC 12/14/17 20:15 999 MLS/HR Magnesium Sulfate (Magnesium Sulfate) 2 gm NOW STAT IV 12/14/17 20:39 12/14/17 20:42 DC 12/14/17 20:53 2 GM Potassium Chloride (Kcl 10 Meq / Wtr) 40 meq NOW STAT IV 12/14/17 20:39 12/14/17 20:42 DC 12/14/17 20:54 40 MEQ Sodium Chloride 1,000 ml @ 250 mls/hr Q4H STAT IV 12/14/17 20:39 12/15/17 00:38 12/14/17 20:53 250 MLS/HR Albuterol/ Ipratropium (Duoneb) 3 ml NOW STAT INH 12/14/17 20:39 12/14/17 20:42 DC 12/14/17 20:53 3 ML Potassium Chloride (Klor-Con M10) 40 meq NOW STAT PO 12/14/17 23:33 12/14/17 23:36 DC 12/14/17 23:55 40 MEQ Bumetanide (Bumex Tab) 1 mg NOW ONCE PO 12/14/17 23:45 12/14/17 23:46 DC 12/15/17 00:05 1 MG ECG Per My Interpretation Indication: weakness Rate (beats per minute): 78 Rhythm: sinus with SA Findings: PVC (occasional), no acute ischemic change ED Course 1856: The patient was evaluated in room C12B. A complete history and physical exam was performed. 2126: Upon reexamination, the patient was stable. I discussed the test results and treatment plan with her and her family. The patient will be evaluated for further management. 2132: I discussed the patient with Dr. Victoria, [facility] hospitalist - She will evaluate the patient for further treatment. Medical Decision I reviewed the patient's past medical history, medications, and the nursing notes as described above. Differential diagnosis: Etiologies such as metabolic, infection, hypo/hyperglycemia, electrolyte abnormalities, cardiac sources, intracerebral event, toxicologic, neurologic, as well as others were entertained. The patient a 61-year-old woman with a past medical history of COPD/CHF who presents emergency department with worsening generalized weakness and difficulty with speech over the past week after being seen in the ED 1 week prior to arrival and diagnosed and treated for influenza B per hpi. On arrival the patient is fatigued appearing and uncomfortable but no acute distress, afebrile stable vital signs. Patient appears clinically dry on exam with dry cracked mucous membranes and no lower extremity edema. She has 4-5 strength in silt 4 extremities. Normal cerebellar function with [id number], alternating palms. EKG unremarkable. Labs consistent with dehydration with potassium of 2.8 and magnesium of 1.8. Patient does have an elevated BNP in the 4000s which is up from 1500 last week, however no pulmonary findings on chest x-ray and patient is satting normally on room air. Thus will proceed with gentle hydration and electrolyte repletion at this time. CT head negative. MRI ordered to rule out central causes to the patient's symptoms however given the patient's generalized bilateral symptoms unlikely to be CVA. Case was discussed with Dr. Keeley Victoria, [facility] hospitalist, who will evaluate the patient for further management. MRI subsequently negative for stroke or acute findings otherwise. Patient was seen by Dr. Victoria and was feeling improved after electrolyte repletion and IV fluid hydration was able to inability to the bathroom without difficulty. At this time the patient prefers to go home and thus Dr. Victoria believes this is reasonable. Recommends that she take her as needed dose of Bumex given her newly elevated BNP. I reevaluated the patient and she reports that she indeed feels improved and prefers to go home. Thus, we will give patient dose of Bumex. While patient does appear clinically dry and has evidence of dehydration , diuresis in conjuction is also reasonable given the patient's history of heart failure and elevated BNP. Patient was also instructed to resume her home potassium supplementation until she is able to follow with her doctor next week and repeat her lab tests. Findings and plan for follow-up reviewed with patient. Patient agreeable and d/c'd per discharge instructions. Medication Reconcilliation Current Medication List: was personally reviewed by me Blood Pressure Screening Patient's blood pressure: Elevated blood pressure Referred to hospitalist. Consults Time Called: 2123 Consulting Physician: Dr. Victoria [facility] hospitalist Returned Call: [phone] I discussed the patient with her - She will evaluate the patient for further treatment. Impression Primary Impression: Dehydration Additional Impressions: Hypokalemia Hypomagnesemia Generalized weakness Scribe Attestation The scribe's documentation has been prepared under my direction and personally reviewed by me in its entirety. I confirm that the note above accurately reflects all work, treatment, procedures, and medical decision making performed by me. Departure Information Dispostion Home / Self-Care Referrals Marcos Jung M.D. (PCP) Patient Instructions ED Dehydration, ED Potassium Deficiency, My [facility] Additional Instructions Please follow up with your primary care physician on Sunday for re-evaluation and to repeat your electrolyte levels. Your symptoms are likely related to mild dehydration and low potassium and magnesium in the setting of your recent flu. Otherwise, your exam, EKG, chest xray, lab results, and CT scan and MRI of your brain did not show signs of an emergent condition at this time. Resume taking your potassium supplements as prescribed, 20meq twice daily. You should also take your Bumex for the next couple of days as your lab tests did show some evidence of extra fluid in your heart. Return to the emergency department for worsening symptoms as described in the accompanying instructions. Problem Qualifiers
[2017-12-14] MEDS ORDERED: OXY/15 PO (22:57)
[2017-12-14] MEDS ORDERED: POTASSIUM CHLORIDE 10 MEQ TABCR PO STA (23:33)
--- NOTE | 2017-12-14 23:35 | Medical Consult ---
Consultation Date of Consultation: Dec 14, 2017. Attending Physician: Keeley Victoria MD Reason for Consultation: Weakness History of Present Illness 61 yo F history of CAD, NH s/p CABG, chronic back pain recent ED visit for flu (12/07). For the last week, She had trouble with balance and LE weakness, fell while walking with son today. She was recently seen in ED 12/07 diagnosed with influenza been placed on Tamiflu. She currently denies fever/chills but still reports body aches. She feels like she was getting better in general regarding flu symptoms but still felt weak. She reports episode of slurred speech for 1.5 hr. She also reports associated of vision. that her son told her She denies numbness, tingling, lightheadedness, chest pain, sob. She has a lingering dry cough she attributes to flu. She denies abdominal pain, diarrhea , WILHELM, nausea/vomiting. She was seen by Neurologist Dr Irving ( neurology)08/03 for scheduled f/u. Patient had an MRI in 2016 for Acute Pow[place] palsy, MRI showed several white matter hyperintensities. [place] palsy was attributed to Lyme disease which was confirmed with Western Blot. LP was done to asses for SPRAY GUN SIZER lyme disease but no SPRAY GUN SIZER Lyme disease was identified. MS profile was performed and showed 3 well defined gamma restriction band. MS could not be ruled out, therefore Repeat MRI was scheduled for this coming spring. Past Medical/Surgical History Medical Problems: (1) Dehydration Status: Acute (2) Generalized weakness Status: Acute (3) Hypokalemia Status: Acute (4) Hypomagnesemia Status: Acute (5) Influenza B Status: Acute (6) Influenza-like symptoms Status: Acute PastMedHx: CAD, NH s/p CABG Lyme disease Pow[place] palsy Hypertension Anxiety SurgHx: Appendectomy, Cholecystectomy Hysterectomy. Shoulder Surgery Family History Diabetes mellitus FH: cancer FH: heart disease Hypertension Kidney stones Social History Smoking Status: Current Every Day Smoker Alcohol Use: none Drug Use: none Marital Status: Housing Status: lives with significant other Occupation Status: disabled Allergies Coded Allergies: Benzyl Alcohol (Verified Allergy, Severe, ANAPHYLAXIS, 12/07/17) Saccharin (Verified Allergy, Severe, ANAPHYLAXIS, 12/07/17) Iodinated Diagnostic Agents (Verified Allergy, Intermediate, Rash - IVP dye, 12/07/17) Furosemide (Verified Allergy, Mild, rash, 12/07/17) Prochlorperazine (Verified Allergy, Mild, rash, 12/07/17) Promethazine (Verified Allergy, Mild, rash, 12/07/17) Home Medications Albuterol 90 MCG/ACT AERS; INHALE 1 TO 2 PUFFS EVERY 4 TO 6 HOURS NEEDED; Therapy: (Recorded:[id number]) to Recorded Aspirin 81 MG TABS; TAKE 1 TABLET DAILY; Therapy: (Recorded:[id number]) to Recorded Losartan Potassium 50 MG Oral Tablet; Therapy: (Recorded:[id number]) to Recorded Bumetanide 1 MG Oral Tablet; TAKE 1 TABLET DAILY; Therapy: (Recorded:[id number]) to Recorded Gabapentin 600 MG Oral Tablet; TAKE 1 TABLET 3 TIMES DAILY; Therapy: (Recorded:[id number]) to Recorded Klor-Con M20 20 MEQ Oral Tablet Extended Release; TAKE 1 TABLET TWICE DAILY; Therapy: (Recorded:[id number]) to Recorded LORazepam 1 MG Oral Tablet; TAKE 1 TABLET BY MOUTH FIVE TIMES DAILY NEEDED; Therapy: (Recorded:[id number]) to Recorded Losartan Potassium 50 MG Oral Tablet; TAKE 1 TABLET TWICE DAILY; Therapy: (Recorded:[id number]) to Recorded Metoprolol Tartrate 25 MG Oral Tablet; TAKE 1 TABLET DAILY; Therapy: (Recorded:[id number]) to Recorded Omeprazole 40 MG Oral Capsule Delayed Release; TAKE 1 CAPSULE Daily; Therapy: (Recorded:[id number]) to Recorded Ondansetron 8 MG Oral Tablet Disintegrating; Take 1 tablet daily; Therapy: (Recorded:[id number]) to Recorded OxyCODONE HCl - 10 MG Oral Tablet; TAKE 1 TABLET FIVE TIMES DAILY; Therapy: (Recorded:[id number]) to Recorded Pravastatin Sodium 40 MG Oral Tablet; TAKE 1 TABLET DAILY; Therapy: (Recorded:[id number]) to Recorded Current Inpatient Medications Current Inpatient Medications Medications (Trade) Dose Ordered Sig/Boni Route Start Time Stop Time Status Last Admin Dose Admin Sodium Chloride 1,000 ml @ 250 mls/hr Q4H STAT IV 12/14/17 20:39 12/15/17 00:38 12/14/17 20:53 250 MLS/HR Review of Systems Constitutional: + weakness, + fatigue, No fever, No chills Eyes: + diplopia (resolved) Respiratory: + cough, No sputum, No wheezing, No shortness of breath Cardiovascular: No chest pain, No edema, No palpitations Abdomen: No pain, No nausea, No vomiting, No diarrhea Genitourinary - Female: No dysuria, No urinary frequency, No urinary urgency Neurologic: + weakness, + balance problems, + problem reported (slurred speech (resolved)), No numbness/tingling Integumentary: No rash, No itch Physical Exam Date Time Temp Pulse Resp B/P (MAP) Pulse Ox O2 Delivery O2 Flow Rate FiO2 12/14/17 22:20 85 18 148/74 96 Nasal Cannula 12/14/17 22:19 94 Nasal Cannula 2.0 12/14/17 22:18 88 Room Air 12/14/17 21:24 67 153/92 92 Room Air 12/14/17 21:01 146/80 12/14/17 21:00 63 17 12/14/17 20:57 64 12/14/17 20:54 62 16 148/73 93 Room Air 12/14/17 20:27 63 18 136/70 93 Room Air 12/14/17 19:11 70 15 130/90 94 Room Air 12/14/17 19:11 94 Room Air 12/14/17 18:47 36.4 86 16 130/87 94 Room Air General Appearance: WD/WN, no apparent distress Head: normocephalic, atraumatic, + pertinent finding (mild L eft sided facial droop ( non-acute)) Eyes: PERRL, EOMI, sclerae normal Neck: supple, trachea midline Respiratory/Chest: lungs clear, normal breath sounds, no respiratory distress Cardiovascular: regular rate, rhythm, no edema, no murmur, normal peripheral pulses Abdomen/GI: normal bowel sounds, non tender, soft, no organomegaly Back: normal range of motion Extremities/Musculoskelatal: no calf tenderness, no pedal edema, normal range of motion Neurologic/Psych: gill box operator II-XII nml as tested, no motor/sensory deficits, alert, normal mood/affect, normal reflexes, oriented x 3, + pertinent finding (4/5 stregnth LE bilaterally) Skin: normal color, warm/dry Laboratory Results Last 24 Hours Test 12/14/17 20:07 12/14/17 22:37 White Blood Count 9.45 K/uL Red Blood Count 4.80 M/uL Hemoglobin 13.8 g/dL Hematocrit 40.9 % Mean Corpuscular Volume 85.2 fL Mean Corpuscular Hemoglobin 28.8 pg Mean Corpuscular Hemoglobin Concent 33.7 g/dl Platelet Count 207 K/uL Mean Platelet Volume 10.8 fL Neutrophils (%) (Auto) 70.7 % Lymphocytes (%) (Auto) 20.5 % Monocytes (%) (Auto) 6.8 % Eosinophils (%) (Auto) 1.4 % Basophils (%) (Auto) 0.2 % Neutrophils # (Auto) 6.68 K/uL Lymphocytes # (Auto) 1.94 K/uL Monocytes # (Auto) 0.64 K/uL Eosinophils # (Auto) 0.13 K/uL Basophils # (Auto) 0.02 K/uL RDW Standard Deviation 50.4 fL RDW Coefficient of Variation 16.2 % Immature Granulocyte % (Auto) 0.4 % Immature Granulocyte # (Auto) 0.04 K/uL Prothrombin Time 10.5 SECONDS Prothromb Time International Ratio 1.0 Venous Blood pH 7.34 Venous Blood Partial Pressure CO2 40 mmHg Venous Blood Partial Pressure O2 36 mmHg Venous Blood HCO3 21 mmol/L Venous Blood Oxygen Saturation 63.8 % Venous Blood Base Excess -4.5 mEq/L Sodium Level 142 mmol/L Potassium Level 2.8 mmol/L Chloride Level 112 mmol/L Carbon Dioxide Level 23 mmol/L Anion Gap 7.0 mmol/L Blood Urea Nitrogen 14 mg/dl Creatinine 0.89 mg/dl Est Creatinine Clear Calc Drug Dose 58.6 ml/min Estimated GFR () 80.5 Estimated GFR (Non- 69.5 BUN/Creatinine Ratio 15.2 Random Glucose 85 mg/dl Lactic Acid Level 1.4 mmol/L Calcium Level 8.9 mg/dl Phosphorus Level 4.0 mg/dl Magnesium Level 1.8 mg/dl Total Bilirubin 0.3 mg/dl Direct Bilirubin 0.1 mg/dl Aspartate Amino Transf (AST/SGOT) 14 U/L Alanine Aminotransferase (ALT/SGPT) 13 U/L Alkaline Phosphatase 155 U/L Troponin I < 0.015 ng/ml Pro-B-Type Natriuretic Peptide 4491 pg/ml Total Protein 7.1 gm/dl Albumin 2.7 gm/dl Lipase 59 U/L Urine Color YELLOW Urine Appearance CLEAR Urine pH 7.0 Urine Specific [place] 1.018 Urine Protein 1+ Urine Glucose (UA) NEG Urine Ketones TRACE Urine Occult Blood NEG Urine Nitrite NEG Urine Bilirubin NEG Urine Urobilinogen NEG Urine Leukocyte Esterase NEG Urine WBC (Auto) 1-5 /hpf Urine RBC (Auto) 0-4 /hpf Urine Hyaline Casts (Auto) 5-10 /lpf Urine Epithelial Cells (Auto) >30 /lpf Urine Bacteria (Auto) NEG Urine Renal Epithelial Cells 0-5 /lpf Urine Pathogenic Casts 1-5 GRANULAR CASTS /lpf Assessment & Plan A/P: 61 yo F with history CAD, NH s/p CABG, recent ED visit for influenza presenting with 1 wk of progressive wackiness and acute episodes of possible aphasia and double vision Weakness , Aphasia Diplopia - AFVSS, no new focal neural findings other than LE weakness, CBC unremarkable , CT Head MRI neg - previous worked up for MS. MRI in 2017 showing white matter hyperintensities, however today's MRI was unremarkable - CSF in 2017 had oligoclonal bands which could be suggestive of MS - Given negative MRI Brain , CT Head, CVA unlikely though TIA cannot be ruled out. Previous findings suggestive of MS can be worked up on outpatient basis. She already is established care with Neurologist Dr. Irving, whom she can see outpatient after discharge. - While weakness could be attributed to Influenza, it is unlikely the serve as an etiology for the acute neurological symptoms. - Lack of fever, no leukocytosis, Negative CXR, Negative UA make pneumonia , UTI unlikely contributors to weakness - Patient was able to Ambulate to and from bathroom feeling better without issues and expressed Patient wishes to go home . - As patient would like to go home and no further workup requires inpatient admission, decision was made that patient could go home with outpatient follow up to PCP, Neurology L facial droop - known [place] Palsy secondary to Lyme Disease -non- acute Hypokalemia - chronic - supplemented in ED with 40 meq IV K Hypertension - asx - patient reported she had not taken BP medication - will take following discharge Disposition: Discharged Home From ED Thank you for consult Resident Tracking Resident Involvement: Resident Care Provided Care Provided: Adult Hospital Medicine History Patient seen and examined, chart reviewed, case discussed with Dr. Condon and I agree with his assessment and plan as documented in the consult note. Briefly, patient is a 61yo C female with history of CAD s/p CABG, Anxiety, HTN, [place] palsy, recently diagnosed and treated for Influenza B who presents with bilateral LE weakness and balance difficulty x 1 week. She had an episode of slurred speech this evening lasting approximately 1.5 hours. Patient reports feeling well presently. She says that she feels improved after receiving IVF and potassium. She is comfortable with discharge home. On physical exam she is afebrile, hypertensive at 162/102 otherwise HD stable. General - AA&O, pleasant, NAD HEENT - unremarkable Heart- +S1/S2, regular, no m/r/g Lungs mild crackles in the bilateral bases Abdomen - normoactive bowel sounds, soft, NT/ND Extremities- warm, well perfused, no clubbing/cyanosis or edema Neuro - CN intact, MS equal bilaterally in UE/LE, no deficits noted Labs and images reviewed, unremarkable. K repleted. Of note, patient had a carotid duplex 03/2017 that was normal. She follows with Dr. Vazquez from Cardiology and last saw him 2 months ago. Assessment and plan - unclear etiology of weakness. Most likely secondary to dehydration/hypokalemia which have been appropriately treated in the ER with clinical improvement. Patient has had a thorough workup for possible intracranial etiology CVA/TIA which was negative. She is taking ASA and Statin already. Patient is medically stable for discharge to home with PCP followup. Patient is aware of the plan and is in agreement.
[2017-12-14] MEDS ORDERED: BUMETANIDE 1 MG TAB PO ONE (23:45)
[2017-12-15 00:11] VITALS: BP 172/89; PULSE 65; O2SAT 97
== END 2017-12-15 00:11 | disposition home or self-care (01) ==
LOC: C.EDB 18:47 → C.EDC 12-15 00:11
DX: E86.0 Dehydration (principal); R53.1 Weakness; E87.6 Hypokalemia; E83.42 Hypomagnesemia; I11.0 Hypertensive heart disease with heart failure; F41.9 Anxiety disorder, unspecified; G89.29 Other chronic pain; J44.9 Chronic obstructive pulmonary disease, unspecified; M54.9 Dorsalgia, unspecified; I25.10 Atherosclerotic heart disease of native coronary artery without angina pectoris; Z95.1 Presence of aortocoronary bypass graft; Z90.49 Acquired absence of other specified parts of digestive tract; Z90.710 Acquired absence of both cervix and uterus; Z87.440 Personal history of urinary (tract) infections; F17.210 Nicotine dependence, cigarettes, uncomplicated; Z83.3 Family history of diabetes mellitus; Z80.9 Family history of malignant neoplasm, unspecified; Z82.49 Family history of ischemic heart disease and other diseases of the circulatory system; Z84.1 Family history of disorders of kidney and ureter; Z79.82 Long term (current) use of aspirin; Z79.899 Other long term (current) drug therapy; Z91.041 Radiographic dye allergy status; Z88.8 Allergy status to other drugs, medicaments and biological substances

== ENCOUNTER → 2018-05-03 | Outpatient (CLI) | payer OTHER ==
[~2018-05-03] MED LIST changes: +ASPI81TA28 PO; +ATV/1 PO; +CHOL1000 PO; +FOLI800T17 PO; +NRN/600 PO; -OSEL75CA23 PO; +OXY/15 PO; -OXYC-164 PO; +POTA-639 PO; -POTA20TA16 PO; +PRAV40TA2 PO; +VNTHFA/IN INH
--- NOTE | 2018-05-03 13:00 | DIAGNOSTIC IMAGING REPORT ---
RIGHT KNEE 2 VIEWS HISTORY: Right knee pain. COMPARISON: None. FINDINGS: There is no fracture or dislocation. Soft tissues are unremarkable. No knee effusion. Vascular clips at the medial aspect of the knee. Minimal tricompartmental cartilage space narrowing and tiny marginal osteophytes at the patella. This is consistent with osteoarthritis. The bones appear osteopenic. IMPRESSION: 1. No fracture or dislocation within the right knee. 2. Minimal tricompartmental osteoarthritis. 3. The bones appear osteopenic. Electronically signed by: Feliberto Lora M.D. 05/03/2018 12:59 PM Dictated Date/Time: 05/03/2018 12:58 PM
== END | disposition home or self-care (01) ==
LOC: C.RAD 12:29
PROVIDERS: ATTEND Physician Assistant Medical
DX: M54.17 Radiculopathy, lumbosacral region (principal); M25.552 Pain in left hip; G89.21 Chronic pain due to trauma; M79.609 Pain in unspecified limb

== ENCOUNTER 2022-06-16 17:44 | Observation (INO) ==
[2022-06-16 18:35] LABS: Basophils # (auto) 0.03 K/uL (0-0.2); Basophils % (auto) 0.2 %; Eosinophils # (auto) 0.15 K/uL (0-0.50); Eosinophils % (auto) 1.2 %; Hematocrit (blood only) 48.2 % (34.1-44.9); Hemoglobin 16.7 g/dl (12.0-16.0); Immature Granulocytes # (auto) 0.03 K/uL (0.00-0.02); Immature Granulocytes % (auto) 0.2 %; Lymphocytes # (auto) 2.75 K/uL (1.2-3.4); Lymphocytes % (auto) 22.3 %; Mean Corpuscular Hemoglobin 34.4 pg (25.0-34.0); Mean Corpuscular Hgb Conc 34.6 g/dL (32.0-36.0); Mean Corpuscular Volume 99.4 fL (80.0-100.0); Mean Platelet Volume 11.3 fL (9.4-12.3); Monocytes # (auto) 0.67 K/uL (0.24-0.82); Monocytes % (auto) 5.4 %; Neutrophils # (auto) 8.71 K/uL (1.4-6.5); Neutrophils % (auto) 70.7 %; Platelet Count 173 K/uL (130-400); RDW Coefficient of Variation 12.5 % (11.5-14.5); RDW Standard Deviation 45.8 fL (36.4-46.3); Red Blood Count 4.85 M/uL (3.93-5.22); White Blood Count 12.34 K/ul (4.8-10.8)
[2022-06-16] MEDS ORDERED: MoRPHine SULFATE 2 MG/ML CARP IV STA (18:44)
[2022-06-16 18:48] LABS: Partial Thromboplastin Ratio 0.9; Partial Thromboplastin Time 25.9 Seconds (21.0-31.0); Prothrombin Time 10.8 Seconds (9.0-12.0)
--- NOTE | 2022-06-16 18:57 | Emergency Department Note ---
History of Present Illness General Chief Complaint: Chest Pain Stated Complaint: REF BY DR, ABNORMAL EKG, CHEST PAIN Time Seen by Provider: 06/16/22 18:35 History of Present Illness Provider Complaint: chest pain Onset (ago): day(s) 3 Duration: intermittent Onset: during rest Pain Location: substernal Pain Radiation: LUE Severity: moderate Maximum Pain Intensity: 6 Current Pain Intensity: 6 Quality: + aching, + heaviness, + sharp and + dull Relieved By: + nothing Exacerbated By: + nothing Associated symptoms: + dyspnea; no nausea, no vomiting, no diaphoresis, no syncope, no palpitations, no fever or no cough Treatments prior to arrival: aspirin and nitroglycerin Home Medications Medication Instructions Recorded Confirmed Type fenofibrate micronized 67 mg 67 mg PO QAM 01/02/22 03/02/22 History capsule gabapentin 800 mg tablet 800 mg PO QID 01/02/22 03/02/22 History isosorbide mononitrate 30 mg 30 mg PO QAM 01/02/22 03/02/22 History tablet,extended release 24 hr lorazepam 1 mg tablet 1 mg PO QID PRN severe anxiety 01/02/22 03/02/22 History metformin 500 mg tablet 500 mg PO BID 01/02/22 03/02/22 History omeprazole 40 mg capsule,delayed 40 mg PO BID 01/02/22 03/02/22 History release albuterol sulfate 90 mcg/actuation 2 puff inhalation QID PRN Wheezing 01/03/22 03/02/22 History aerosol inhaler aspirin 81 mg tablet,delayed 81 mg PO QAM 01/03/22 03/02/22 History release losartan 100 mg tablet 100 mg PO QAM 01/03/22 03/02/22 History metoprolol succinate 50 mg 50 mg PO QAM 01/03/22 03/02/22 History tablet,extended release 24 hr pravastatin 40 mg tablet 40 mg PO QAM 01/03/22 03/02/22 History sumatriptan succinate 25 mg tablet 25 mg PO UD PRN Headache 01/03/22 03/02/22 History trazodone 50 mg tablet 100 mg PO HS 01/03/22 03/02/22 History bumetanide 1 mg tablet 1 mg PO UD PRN LEG SWELLING 02/27/22 03/02/22 History cholecalciferol (vitamin D3) 25 25 mcg PO 2XWK 02/27/22 03/02/22 History mcg (1,000 unit) capsule (Vitamin D3) magnesium oxide 400 mg PO QAM 02/27/22 03/02/22 History nitroglycerin 0.4 mg sublingual 0.4 mg buccal UD PRN Chest Pain 02/27/22 03/02/22 History tablet potassium chloride 20 mEq oral 20 meq PO UD PRN TAKES WITH BUMEX 02/27/22 03/02/22 History packet (Klor-Con) Allergies Allergy/AdvReac Type Severity Reaction Status Date / Time benzyl alcohol Allergy Severe ANAPHYLAXIS Verified 03/02/22 12:54 prochlorperazine Allergy Severe Anaphylaxis Verified 03/02/22 12:54 saccharin Allergy Severe ANAPHYLAXIS Verified 03/02/22 12:54 Iodinated Contrast Media Allergy Intermediate Rash - IVP Verified 03/02/22 12:54 dye furosemide Allergy Mild rash Verified 03/02/22 12:54 promethazine Allergy Mild rash Verified 03/02/22 12:54 Past Med/Surg History Medical History Anemia IRON INFUSIONS IN THE PAST Anxiety 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 CAD (coronary artery disease) CHF (congestive heart failure) GERD (gastroesophageal reflux disease) History of stomach ulcers Hyperlipidemia Hypertension Migraine Myocardial Infarction ? DATE>OVER 10 YEARS AGO Peripheral neuropathy Prediabetes Surgical History Family history of reaction to anesthesia DAUGHTER>SLOW TO WAKE UP H/O abdominal surgery 25-30 YEARS AGO>PART OF STOMACH/COLON/PANCREAS REMOVED D/T STOMACH ULCER History of appendectomy History of cardiac cath MULTIPLE CATH'S DONE>NO SENTS ([facility]) History of cataract surgery RT/LEFT History of cholecystectomy History of colonoscopy History of esophagogastroduodenoscopy (EGD) History of tooth extraction History of total hysterectomy Family History Daughter Family history of diabetes mellitus Family hx of colon cancer Sister Family history of diabetes mellitus Brother Family history of diabetes mellitus Social History Smoking Status: Current every day smoker Cigarettes Per Day: 20 CIG DAILY *ADVISED; Second Hand Exposure: No; Hx Alcohol Use: No 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 Maintenance Required: No Beliefs That Will Affect Care: None Current Living Situation: Spouse Feels Safe at Home: Yes Assistive Devices: Denture - Upper, Denture - Lower and Glasses Review of Systems A total of 10 systems reviewed and were otherwise negative Physical Exam Vital Signs Vital Signs - 24 hr 06/16/22 17:58 06/16/22 18:55 06/16/22 18:45 Temperature 36.4 C L Temperature Source Temporal Artery Scan Pulse Rate 78 89 Pulse Rate [Apical] 88 Pulse Rhythm Irregular Respiratory Rate 18 20 20 Respiratory Effort / Characteristics Non-Labored Respiratory Depth Normal Blood Pressure 188/111 H Blood Pressure [Left Arm] 180/112 H Blood Pressure Mean 136 Blood Pressure Mean [Left Arm] 134 Blood Pressure Position Sitting Pulse Oximetry 93 96 95 Oxygen Delivery Method Room Air Room Air Room Air Sepsis Recent Fever Within 48 Hours No Sepsis New/Unexplained Change in Mental Status No Sepsis Action Taken by Nursing No Action Required 06/16/22 18:57 06/16/22 20:00 Temperature Temperature Source Pulse Rate Pulse Rate [Apical] 95 H Pulse Rhythm Respiratory Rate 20 Respiratory Effort / Characteristics Respiratory Depth Blood Pressure Blood Pressure [Left Arm] 190/111 H Blood Pressure Mean Blood Pressure Mean [Left Arm] 137 Blood Pressure Position Pulse Oximetry 95 94 Oxygen Delivery Method Room Air Room Air Sepsis Recent Fever Within 48 Hours Sepsis New/Unexplained Change in Mental Status Sepsis Action Taken by Nursing Physical Exam GENERAL: She is oriented to person, place, and time. She appears well-developed and well-nourished. She does not appear distressed. HENT: Exam performed. -Head: Normocephalic and atraumatic. -Right Ear: External ear normal. No mastoid tenderness. -Left Ear: External ear normal. No mastoid tenderness. -Mouth/Throat: The oropharynx is clear and moist. No trismus in the jaw. No dental abscesses or uvula swelling. No oropharyngeal exudate or tonsillar abscesses. EYES: Conjunctivae and EOM are normal. Pupils are equal, round, and reactive to light. Right eye exhibits no discharge. Left eye exhibits no discharge. No scleral icterus. NECK: Normal range of motion. Neck supple. No JVD present. No spinous process tenderness present. No carotid bruit present. No rigidity. No tracheal deviation and normal range of motion present. No Brudzinski's sign and no Kernig's sign noted. CV: Normal rate, regular rhythm, normal heart sounds and intact distal pulses. There is no peripheral edema. Palpable radial pulses bue. PULM/CHEST: Effort normal and breath sounds normal. No respiratory distress. No stridor. She has no wheezes. She has no rales. -Chest Wall: She exhibits no tenderness. ABD: The abdomen is soft. Bowel sounds are normal. She has no distension. No mass is present. There is no tenderness. There is no rebound, no guarding, no Miguel's sign and no tenderness at McBurney's point. Rovsig negative MUSC/SKEL: Normal range of motion. There is no peripheral edema, tenderness or deformity. LYMPH: No cervical adenopathy. NEURO: She is alert and oriented to person, place, and time. She has normal strength. No cranial nerve deficit or sensory deficit. Coordination and gait normal. GCS eye subscore is 4. GCS verbal subscore is 5. GCS motor subscore is 6. Cerebellar tests wnl. SKIN: Skin is warm and dry. She is not diaphoretic. PSYCH: She has a normal mood and affect. Behavior is normal. Judgment and thought content normal. Course Course 1834: The patient was evaluated in room A3. A complete history and physical exam was performed Cardiac monitoring: An order was placed for continuous cardiac monitoring. The monitor shows a rate of 90 with sinus rhythm 0: Vital signs stable. Labs and imaging within normal limits. Patient has a high heart score. [facility] Dr. [facility] team notified. Administered Medications Discontinued Medications Morphine Sulfate (Morphine Sulfate 2 Mg/Ml Carp) 2 mg IV NOW STA Stop: 06/16/22 18:45 Last Admin: 06/16/22 18:55 Dose: 2 mg Documented By: QGV Morphine Sulfate (Morphine Sulfate 4 Mg/Ml 1 Ml Carp\Vial) 4 mg IV NOW STA Stop: 06/16/22 19:54 Last Admin: 06/16/22 20:05 Dose: 4 mg Documented By: QGV Medical Decision Making Laboratory Data Result diagrams: 06/16/22 18:15 06/16/22 18:15 Labs: Lab Results 06/16/22 06/16/22 06/16/22 Range/Units 18:15 18:15 18:15 WBC 12.34 H (4.8-10.8) K/ul RBC 4.85 (3.93-5.22) M/uL Hgb 16.7 H (12.0-16.0) g/dl Hct 48.2 H (34.1-44.9) % MCV 99.4 (80.0-100.0) fL MCH 34.4 H (25.0-34.0) pg MCHC 34.6 (32.0-36.0) g/dL RDW Std Deviation 45.8 (36.4-46.3) fL RDW Coeff of Naman 12.5 (11.5-14.5) % Plt Count 173 (130-400) K/uL MPV 11.3 (9.4-12.3) fL Immature Gran % (Auto) 0.2 % Neut % (Auto) 70.7 % Lymph % (Auto) 22.3 % Lipscomb % (Auto) 5.4 % Eos % (Auto) 1.2 % Baso % (Auto) 0.2 % Neut # (Auto) 8.71 H (1.4-6.5) K/uL Lymph # (Auto) 2.75 (1.2-3.4) K/uL Lipscomb # (Auto) 0.67 (0.24-0.82) K/uL Eos # (Auto) 0.15 (0-0.50) K/uL Baso # (Auto) 0.03 (0-0.2) K/uL Immature Gran # (Auto) 0.03 H (0.00-0.02) K/uL PT 10.8 (9.0-12.0) Seconds INR 1.0 (0.9-1.1) APTT 25.9 (21.0-31.0) Seconds PTT Ratio 0.9 Sodium 139 (136-145) mmol/L Potassium 3.8 (3.5-5.1) mmol/L Chloride 107 (98-107) mmol/L Carbon Dioxide 24 (21-32) mmol/L Anion Gap 8 (3-11) BUN 10 (6-23) mg/dl Creatinine 0.53 L (0.6-1.2) mg/dl Est Cr Clr Drug Dosing 85.2 ml/min Est GFR ( Amer) 113.9 ml/min Est GFR (Non-Af Amer) 98.2 ml/min BUN/Creatinine Ratio 18.9 (10-20) Glucose 110 H (70-99(Fasting)) mg/dl Calcium 9.7 (8.5-10.1) mg/dl Magnesium (1.7-2.4) mg/dl Total Bilirubin 0.5 (0.2-1.0) mg/dl AST 22 (13-39) U/L ALT 27 (7-52) U/L Alkaline Phosphatase 108 H (34-104) U/L Troponin I High Sens 7.5 (0-14) pg/ml Total Protein 7.3 (6.0-8.3) gm/dl Albumin 4.1 (3.4-5.0) gm/dl Globulin 3.2 (2.5-4.0) gm/dl Albumin/Globulin Ratio 1.3 (0.9-2) SARS-CoV-2, RNA, NAAT (NEGATIVE) 06/16/22 06/16/22 Range/Units 18:15 18:47 WBC (4.8-10.8) K/ul RBC (3.93-5.22) M/uL Hgb (12.0-16.0) g/dl Hct (34.1-44.9) % MCV (80.0-100.0) fL MCH (25.0-34.0) pg MCHC (32.0-36.0) g/dL RDW Std Deviation (36.4-46.3) fL RDW Coeff of Naman (11.5-14.5) % Plt Count (130-400) K/uL MPV (9.4-12.3) fL Immature Gran % (Auto) % Neut % (Auto) % Lymph % (Auto) % Lipscomb % (Auto) % Eos % (Auto) % Baso % (Auto) % Neut # (Auto) (1.4-6.5) K/uL Lymph # (Auto) (1.2-3.4) K/uL Lipscomb # (Auto) (0.24-0.82) K/uL Eos # (Auto) (0-0.50) K/uL Baso # (Auto) (0-0.2) K/uL Immature Gran # (Auto) (0.00-0.02) K/uL PT (9.0-12.0) Seconds INR (0.9-1.1) APTT (21.0-31.0) Seconds PTT Ratio Sodium (136-145) mmol/L Potassium (3.5-5.1) mmol/L Chloride (98-107) mmol/L Carbon Dioxide (21-32) mmol/L Anion Gap (3-11) BUN (6-23) mg/dl Creatinine (0.6-1.2) mg/dl Est Cr Clr Drug Dosing ml/min Est GFR ( Amer) ml/min Est GFR (Non-Af Amer) ml/min BUN/Creatinine Ratio (10-20) Glucose (70-99(Fasting)) mg/dl Calcium (8.5-10.1) mg/dl Magnesium 1.8 (1.7-2.4) mg/dl Total Bilirubin (0.2-1.0) mg/dl AST (13-39) U/L ALT (7-52) U/L Alkaline Phosphatase (34-104) U/L Troponin I High Sens (0-14) pg/ml Total Protein (6.0-8.3) gm/dl Albumin (3.4-5.0) gm/dl Globulin (2.5-4.0) gm/dl Albumin/Globulin Ratio (0.9-2) SARS-CoV-2, RNA, NAAT NEGATIVE (NEGATIVE) Imaging Data Chest x-ray: Radiologist's impression: Chest X-Ray 06/16/22 18:02 XR chest 1V portable CLINICAL HISTORY: Chest Pain TECHNIQUE: Single frontal radiograph of the chest was obtained. Comparison: Comparison is made to chest radiograph 12/14/2017 FINDINGS: Median sternotomy wires are unchanged including fractured inferior wire. Cardiomegaly is noted. Calcified aortic arch is seen. Reticular interstitial opacities are seen. No evidence of pleural effusion or pneumothorax. IMPRESSION: Cardiomegaly is seen. No evidence of pneumonia or other acute abnormality. ACT 112: Negative or not required by law. Electronically signed by: Lit Leyva M.D. 06/16/2022 8:30 PM ECG Data Additional Comments: EKG #1 at 1804: Sinus rhythm with rate of 98. UT QRS and QTc intervals within normal limits. No ST elevation or ST depression. PVCs present. EKG #2 at 1846: Sinus rhythm with rate of 87. UT QRS and QTc intervals within normal limits. No ST elevation or ST depression. PVC present. MDM Narrative Vital signs stable. Labs and imaging within normal limits. Patient has a high heart score. Patient will be admitted to the [facility] hospitalist team for chest pain rule out ACS Dr. Salinas team notified. Impression & Plan Chest pain Discharge Plan Visit Data Chief Complaint: Chest Pain Stated Complaint: REF BY DR, ABNORMAL EKG, CHEST PAIN ED Provider: Prince Li Discharge Problem: Chest pain Patient Disposition: Being Evaluated by Hospitalist Discharge Instructions Interventions: ED Discharge Assessment Last Done: 06/16/22 22:07 Forms Stand Alone Forms: My [facility] Prescriptions Prescriptions: No Action isosorbide mononitrate 30 mg tablet extended release 24 hr 30 mg PO QAM gabapentin 800 mg tablet 800 mg PO QID metformin 500 mg tablet 500 mg PO BID fenofibrate micronized 67 mg capsule 67 mg PO QAM omeprazole 40 mg capsule,delayed release(DR/EC) 40 mg PO BID lorazepam 1 mg tablet 1 mg PO QID PRN (Reason: severe anxiety) trazodone 50 mg tablet 100 mg PO HS pravastatin 40 mg tablet 40 mg PO QAM metoprolol succinate 50 mg tablet extended release 24 hr 50 mg PO QAM sumatriptan succinate 25 mg tablet 25 mg PO UD PRN (Reason: Headache) albuterol sulfate 90 mcg/actuation HFA aerosol inhaler 2 puff INHALATION QID PRN (Reason: Wheezing) losartan 100 mg tablet 100 mg PO QAM aspirin 81 mg Tablet,Delayed Release (Dr/Ec) 81 mg PO QAM potassium chloride [Klor-Con] 20 mEq Packet 20 meq PO UD PRN (Reason: TAKES WITH BUMEX) nitroglycerin 0.4 mg Tablet, Sublingual 0.4 mg buccal UD PRN (Reason: Chest Pain) bumetanide 1 mg Tablet 1 mg PO UD PRN (Reason: LEG SWELLING) cholecalciferol (vitamin D3) [Vitamin D3] 25 mcg (1,000 unit) Capsule 25 mcg PO 2XWK magnesium oxide 400 mg magnesium Capsule 400 mg PO QAM Referrals Referrals: Marcos Jung [Primary Care Provider] -
[2022-06-16 18:58] LABS: Albumin Globulin Ratio 1.3 (0.9-2); Albumin Level 4.1 gm/dl (3.4-5.0); BUN Creatinine Ratio 18.9 (10-20); Bilirubin,Total 0.5 mg/dl (0.2-1.0); Calcium 9.7 mg/dl (8.5-10.1); Creatinine Clr Calc Pharmacy 85.2 ml/min; Est GFR (African American) 113.9 ml/min; Est GFR (Non-African American) 98.2 ml/min; Globulin 3.2 gm/dl (2.5-4.0); Potassium 3.8 mmol/L (3.5-5.1); Total Protein 7.3 gm/dl (6.0-8.3)
[2022-06-16 19:02] LABS: Troponin I High Sensitivity 7.5 pg/ml (0-14)
[2022-06-16] MEDS ORDERED: MoRPHine SULFATE 4 MG/ML 1 ML CARP\\VIAL IV STA (19:53)
--- NOTE | 2022-06-16 20:31 | XRay Report ---
XR chest 1V portable CLINICAL HISTORY: Chest Pain TECHNIQUE: Single frontal radiograph of the chest was obtained. Comparison: Comparison is made to chest radiograph 12/14/2017 FINDINGS: Median sternotomy wires are unchanged including fractured inferior wire. Cardiomegaly is noted. Calci fied aortic arch is seen. Reticular interstitial opacities are seen. No evidence of pleural effusion or pneumothorax. IMPRESSION: Cardiomegaly is seen. No evidence of pneumonia or other acute abnormality. ACT 112: Negative or not required by law. Electronically signed by: Lit Leyva M.D. 06/16/2022 8:30 PM
--- NOTE | 2022-06-16 21:17 | History & Physical Report ---
Date of Service June 16, 2022 Assessment & Plan (1) Chest pain: Plan: Chest pain/CAD/hypertension/history of OH/CHF- The patient will be admitted to telemetry for serial cardiac enzymes, serial EKG's, cardiac rhythm monitoring and a 2-D echocardiogram with Dopplers. Chest x-ray normal EKG without acute changes The patient reports that her blood pressure has been elevated over the past month Give metoprolol succinate 50 mg p.o. now, and increase baseline metoprolol succinate to 50 mg p.o. twice daily from 50 mg every morning Continue aspirin 81 mg daily, isosorbide mononitrate 30 mg every morning, losartan 100 mg every morning, (2) COPD exacerbation: Plan: COPD exacerbation/tobacco use disorder- Will follow rule out OH protocol. However, patient's symptoms of shortness of breath and dyspnea on exertion are likely being exacerbated by excessive tobacco use and need for tobacco cessation counseling Continue usual inhalers (3) Myocardial Infarction: Plan: See above (4) Hypertension: Plan: See above (5) Hyperlipidemia: Plan: Continue pravastatin 40 mg daily and fenofibrate Check a fasting lipid panel (6) GERD (gastroesophageal reflux disease): Plan: Continue omeprazole/pantoprazole (7) CHF (congestive heart failure): Plan: Hold furosemide for now (8) Anxiety: Plan: Continue trazodone, lorazepam (9) CAD (coronary artery disease): Plan: See above (10) Prediabetes: Plan: Hold metformin Place on Accu-Cheks if morning blood sugars elevated Check hemoglobin A1c (11) Polycythemia: Plan: Patient reports being told by hematology that she may need to have phlebotomy due to increased number of red blood cells. I advised patient that she would better off with tobacco cessation as a principal first treatment History of Present Illness Chief Complaint: The patient presents to the emergency department with complaint of chest pain Primary Care Provider: Marcos Jung The patient is a 66-year-old female with a past medical history including COPD exacerbations, urine tract infection, lower extremity edema, CAD, hypertension, diabetes mellitus, GERD, hyperlipidemia, migraine headache and insomnia. She presented to the emergency department with complaint of intermittent substernal chest discomfort that began about 3 days ago, but worsened in intensity today. The symptoms are accompanied by shortness of breath, dyspnea on exertion and intermittently productive cough. The patient does continue to smoke 1-1/2 to 2 packs daily. She reports that her blood pressure has been high over the past month. Allergies Allergy/AdvReac Type Severity Reaction Status Date / Time benzyl alcohol Allergy Severe ANAPHYLAXIS Verified 03/02/22 12:54 prochlorperazine Allergy Severe Anaphylaxis Verified 03/02/22 12:54 saccharin Allergy Severe ANAPHYLAXIS Verified 03/02/22 12:54 Iodinated Contrast Media Allergy Intermediate Rash - IVP Verified 03/02/22 12:54 dye furosemide Allergy Mild rash Verified 03/02/22 12:54 promethazine Allergy Mild rash Verified 03/02/22 12:54 Home Medications Medication Instructions Recorded Confirmed Type fenofibrate micronized 67 mg 67 mg PO QAM 01/02/22 03/02/22 History capsule gabapentin 800 mg tablet 800 mg PO QID 01/02/22 03/02/22 History isosorbide mononitrate 30 mg 30 mg PO QAM 01/02/22 03/02/22 History tablet,extended release 24 hr lorazepam 1 mg tablet 1 mg PO QID PRN severe anxiety 01/02/22 03/02/22 History metformin 500 mg tablet 500 mg PO BID 01/02/22 03/02/22 History omeprazole 40 mg capsule,delayed 40 mg PO BID 01/02/22 03/02/22 History release albuterol sulfate 90 mcg/actuation 2 puff inhalation QID PRN Wheezing 01/03/22 03/02/22 History aerosol inhaler aspirin 81 mg tablet,delayed 81 mg PO QAM 01/03/22 03/02/22 History release losartan 100 mg tablet 100 mg PO QAM 01/03/22 03/02/22 History metoprolol succinate 50 mg 50 mg PO QAM 01/03/22 03/02/22 History tablet,extended release 24 hr pravastatin 40 mg tablet 40 mg PO QAM 01/03/22 03/02/22 History sumatriptan succinate 25 mg tablet 25 mg PO UD PRN Headache 01/03/22 03/02/22 History trazodone 50 mg tablet 100 mg PO HS 01/03/22 03/02/22 History bumetanide 1 mg tablet 1 mg PO UD PRN LEG SWELLING 02/27/22 03/02/22 History cholecalciferol (vitamin D3) 25 25 mcg PO 2XWK 02/27/22 03/02/22 History mcg (1,000 unit) capsule (Vitamin D3) magnesium oxide 400 mg PO QAM 02/27/22 03/02/22 History nitroglycerin 0.4 mg sublingual 0.4 mg buccal UD PRN Chest Pain 02/27/22 03/02/22 History tablet potassium chloride 20 mEq oral 20 meq PO UD PRN TAKES WITH BUMEX 02/27/22 03/02/22 History packet (Klor-Con) Past Med/Surg History Medical History (Updated 06/17/22 @ 03:30 by Antelmo Maki MD) Anemia IRON INFUSIONS IN THE PAST Anxiety 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 CAD (coronary artery disease) CHF (congestive heart failure) GERD (gastroesophageal reflux disease) History of stomach ulcers Hyperlipidemia Hypertension Migraine Myocardial Infarction ? DATE>OVER 10 YEARS AGO Peripheral neuropathy Prediabetes Surgical History Family history of reaction to anesthesia DAUGHTER>SLOW TO WAKE UP H/O abdominal surgery 25-30 YEARS AGO>PART OF STOMACH/COLON/PANCREAS REMOVED D/T STOMACH ULCER History of appendectomy History of cardiac cath MULTIPLE CATH'S DONE>NO SENTS ([facility]) History of cataract surgery RT/LEFT History of cholecystectomy History of colonoscopy History of esophagogastroduodenoscopy (EGD) History of tooth extraction History of total hysterectomy Family History Daughter Family history of diabetes mellitus Family hx of colon cancer Sister Family history of diabetes mellitus Brother Family history of diabetes mellitus Social History Smoking Status: Current every day smoker Cigarettes Per Day: 1.5-2 packs; Second Hand Exposure: No; Do You Dip or Chew Tobacco: No; Tobacco Cessation Education Requested by Patient: No Hx Alcohol Use: No Hx Substance Use: No Preferred Language: Greenlandic Communication Ability: Effective Transmitter Supervisor Required: No Beliefs That Will Affect Care: None Current Living Situation: Spouse Current Living Situation Comment: 2 story home, only lives on 1 floor Other Information That Helps Us Care for You: No Feels Safe at Home: Yes Safety Concerns: Feels Safe At This Time Assistive Devices: None Review of Systems Review of Systems: The patient denies palpitations, lower extremity swelling, sore throat, fevers, chills, sweats, nausea, vomiting, diarrhea , constipation, abdominal pain, pelvic pain, blood in urine or stool, dysuria, urinary frequency or urgency, lightheadedness, dizziness, headache, memory loss, loss of consciousness, rash, abnormal bruising or bleeding, imbalance, focal weakness, numbness or tingling in arms or legs, generalized arthralgias or myalgias, back or neck pain, or night sweats. The review of systems is otherwise negative other than for that already noted above, and at least 10 systems have been reviewed. Physical Exam Physical Exam: The patient is awake, alert and oriented 3, well developed and well nourished, normocephalic and atraumatic, lying in bed and in no acute distress. HEENT--PERRL, EOMI, mucous membranes and oropharynx dry. Neck--supple. No JVD. No bruits. Thyroid normal, trachea midline, no adenopathy. Heart--normal S1 and S2. No murmurs, rubs or gallops. Lungs--decreased breath sounds throughout. No respiratory distress, no accessory muscle use. Abdomen--normal bowel sounds and soft. Nontender. Nondistended, no hernias or masses, no organomegaly. Extremities--no cyanosis or clubbing. No edema. There are good distal pulses b/l. Dermatologic--normal skin turgor, normal color, no abnormal lymph nodes, no rash. Neurologic--cranial nerves II through XII grossly intact. Rheumatologic--normal range of motion. Psychiatric--normal affect. Results & Data Results & Data ([facility]) Vital Signs (Past 12 Hours) Vital Signs Temp Pulse Pulse Resp BP BP Pulse Ox 06/16/22 20:00 95 H 20 190/111 H 94 06/16/22 18:57 95 06/16/22 18:45 88 20 180/112 H 95 06/16/22 18:55 89 20 96 06/16/22 17:58 36.4 C L 78 18 188/111 H 93 O2 Del Method 06/16/22 20:00 Room Air 06/16/22 18:57 Room Air 06/16/22 18:45 Room Air 06/16/22 18:55 Room Air 06/16/22 17:58 Room Air Laboratory Results Laboratory Results WBC 12.34 K/ul (4.8-10.8) H 06/16/22 18:15 RBC 4.85 M/uL (3.93-5.22) 06/16/22 18:15 Hgb 16.7 g/dl (12.0-16.0) H 06/16/22 18:15 Hct 48.2 % (34.1-44.9) H 06/16/22 18:15 MCV 99.4 fL (80.0-100.0) 06/16/22 18:15 MCH 34.4 pg (25.0-34.0) H 06/16/22 18:15 MCHC 34.6 g/dL (32.0-36.0) 06/16/22 18:15 RDW Std Deviation 45.8 fL (36.4-46.3) 06/16/22 18:15 RDW Coeff of Naman 12.5 % (11.5-14.5) 06/16/22 18:15 Plt Count 173 K/uL (130-400) 06/16/22 18:15 MPV 11.3 fL (9.4-12.3) 06/16/22 18:15 Immature Gran % (Auto) 0.2 % 06/16/22 18:15 Neut % (Auto) 70.7 % 06/16/22 18:15 Lymph % (Auto) 22.3 % 06/16/22 18:15 [place] % (Auto) 5.4 % 06/16/22 18:15 Eos % (Auto) 1.2 % 06/16/22 18:15 Baso % (Auto) 0.2 % 06/16/22 18:15 Neut # (Auto) 8.71 K/uL (1.4-6.5) H 06/16/22 18:15 Lymph # (Auto) 2.75 K/uL (1.2-3.4) 06/16/22 18:15 [place] # (Auto) 0.67 K/uL (0.24-0.82) 06/16/22 18:15 Eos # (Auto) 0.15 K/uL (0-0.50) 06/16/22 18:15 Baso # (Auto) 0.03 K/uL (0-0.2) 06/16/22 18:15 Immature Gran # (Auto) 0.03 K/uL (0.00-0.02) H 06/16/22 18:15 PT 10.8 Seconds (9.0-12.0) 06/16/22 18:15 INR 1.0 (0.9-1.1) 06/16/22 18:15 APTT 25.9 Seconds (21.0-31.0) 06/16/22 18:15 PTT Ratio 0.9 06/16/22 18:15 Sodium 139 mmol/L (136-145) 06/16/22 18:15 Potassium 3.8 mmol/L (3.5-5.1) 06/16/22 18:15 Chloride 107 mmol/L (98-107) 06/16/22 18:15 Carbon Dioxide 24 mmol/L (21-32) 06/16/22 18:15 Anion Gap 8 (3-11) 06/16/22 18:15 BUN 10 mg/dl (6-23) 06/16/22 18:15 Creatinine 0.53 mg/dl (0.6-1.2) L 06/16/22 18:15 Est Cr Clr Drug Dosing 85.2 ml/min 06/16/22 18:15 Est GFR ( Amer) 113.9 ml/min 06/16/22 18:15 Est GFR (Non-Af Amer) 98.2 ml/min 06/16/22 18:15 BUN/Creatinine Ratio 18.9 (10-20) 06/16/22 18:15 Glucose 110 mg/dl (70-99(Fasting)) H 06/16/22 18:15 Calcium 9.7 mg/dl (8.5-10.1) 06/16/22 18:15 Magnesium 1.8 mg/dl (1.7-2.4) 06/16/22 18:15 Total Bilirubin 0.5 mg/dl (0.2-1.0) 06/16/22 18:15 AST 22 U/L (13-39) 06/16/22 18:15 ALT 27 U/L (7-52) 06/16/22 18:15 Alkaline Phosphatase 108 U/L (34-104) H 06/16/22 18:15 Troponin I High Sens 8.6 pg/ml (0-14) 06/17/22 00:08 Total Protein 7.3 gm/dl (6.0-8.3) 06/16/22 18:15 Albumin 4.1 gm/dl (3.4-5.0) 06/16/22 18:15 Globulin 3.2 gm/dl (2.5-4.0) 06/16/22 18:15 Albumin/Globulin Ratio 1.3 (0.9-2) 06/16/22 18:15 SARS-CoV-2, RNA, NAAT NEGATIVE (NEGATIVE) 06/16/22 18:47 Impressions Chest X-Ray 06/16/22 18:02 XR chest 1V portable CLINICAL HISTORY: Chest Pain TECHNIQUE: Single frontal radiograph of the chest was obtained. Comparison: Comparison is made to chest radiograph 12/14/2017 FINDINGS: Median sternotomy wires are unchanged including fractured inferior wire. Cardiomegaly is noted. Calcified aortic arch is seen. Reticular interstitial opacities are seen. No evidence of pleural effusion or pneumothorax. IMPRESSION: Cardiomegaly is seen. No evidence of pneumonia or other acute abnormality. ACT 112: Negative or not required by law. Electronically signed by: Lit Leyva M.D. 06/16/2022 8:30 PM Code Status & VTE Plan Code Status Full code VTE Prophylaxis Plan VTE Prophylaxis will be ordered: Yes PG Care Time/CCT Total # of Minutes Spent Total Time Spent with Patient: Total time spent is greater than 50% in coordination of care (as documented) at patient's floor/unit and/or counseling patient: Coding Level of Care Code 77219 Initial Inpt Care Lvl 3 Diagnoses Chest pain R07.9 Chest pain type: unspecified COPD exacerbation J44.1 Myocardial Infarction I21.9 Hypertension I10 Hyperlipidemia E78.5 GERD (gastroesophageal reflux disease) K21.9 CHF (congestive heart failure) I50.9 Anxiety F41.9 CAD (coronary artery disease) I25.10 Prediabetes R73.03 Polycythemia D75.1 (1) Chest pain Chest pain type: unspecified Qualified Code(s): R07.9 - Chest pain, unspecified
[2022-06-16] MEDS ORDERED: ONDANSETRON INJ 2 MG/ML 2 ML VIAL IV PRN (22:35)
[2022-06-16] MEDS ORDERED: NITROGLYCERIN SL 0.4 MG/TAB TAB SL PRN (22:35)
[2022-06-16] MEDS ORDERED: SUMAtriptan succinate 25 MG TAB PO PRN (22:35)
[2022-06-16] MEDS ORDERED: METOPROLOL SUCC 50MG EXT REL TAB PO STA (22:35)
[2022-06-16] MEDS ORDERED: ALBUTEROL HFA 8 GM INHALER INH PRN (22:35)
[2022-06-16] MEDS ORDERED: ACETAMINOPHEN 325 MG TAB PO PRN (22:35)
[2022-06-16] MEDS: LORazepam 1 MG TAB PO PRN (22:59)
[2022-06-16] MEDS: NICOTINE 21 MG/24 HR TDSY TD SCH (23:42)
[2022-06-17 05:51] LABS: Basophils # (auto) 0.02 K/uL (0-0.2); Basophils % (auto) 0.2 %; Eosinophils # (auto) 0.17 K/uL (0-0.50); Hematocrit (blood only) 42.5 % (34.1-44.9); Hemoglobin 14.9 g/dl (12.0-16.0); Immature Granulocytes # (auto) 0.02 K/uL (0.00-0.02); Immature Granulocytes % (auto) 0.2 %; Lymphocytes # (auto) 2.64 K/uL (1.2-3.4); Lymphocytes % (auto) 31.7 %; Mean Corpuscular Hemoglobin 34.7 pg (25.0-34.0); Mean Corpuscular Hgb Conc 35.1 g/dL (32.0-36.0); Mean Corpuscular Volume 98.8 fL (80.0-100.0); Mean Platelet Volume 11.5 fL (9.4-12.3); Monocytes % (auto) 7.2 %; Neutrophils # (auto) 4.89 K/uL (1.4-6.5); Neutrophils % (auto) 58.7 %; Platelet Count 152 K/uL (130-400); RDW Coefficient of Variation 12.6 % (11.5-14.5); RDW Standard Deviation 45.8 fL (36.4-46.3); White Blood Count 8.34 K/ul (4.8-10.8)
[2022-06-17 06:27] LABS: Albumin Globulin Ratio 1.4 (0.9-2); Albumin Level 3.4 gm/dl (3.4-5.0); BUN Creatinine Ratio 18.9 (10-20); Bilirubin,Total 0.5 mg/dl (0.2-1.0); Calcium 8.6 mg/dl (8.5-10.1); Creatinine Clr Calc Pharmacy 88.1 ml/min; Est GFR (African American) 113.9 ml/min; Est GFR (Non-African American) 98.2 ml/min; Globulin 2.5 gm/dl (2.5-4.0); Potassium 3.4 mmol/L (3.5-5.1); Total Protein 5.9 gm/dl (6.0-8.3)
--- NOTE | 2022-06-17 07:12 | Electrocardiogram Report ---
Test Reason : Blood Pressure : / mmHG Vent. Rate : 098 BPM Atrial Rate : 102 BPM P-R Int : 132 ms QRS Dur : 108 ms QT Int : 386 ms P-R-T Axes : 032 -24 120 degrees QTc Int : 492 ms Sinus rhythm with frequent PVCs and fusion beats Left ventricular hypertrophy with repolarization abnormality Abnormal ECG When compared with ECG of 02-MAR-2022 13:31, PVCs are now present Confirmed by Leonidas Matthews ([id number]) on 06/17/2022 7:12:02 AM Referred By: REFERRED SELF Confirmed By:Yonathan Matthews
--- NOTE | 2022-06-17 07:22 | Electrocardiogram Report ---
Test Reason : Blood Pressure : / mmHG Vent. Rate : 074 BPM Atrial Rate : 074 BPM P-R Int : 160 ms QRS Dur : 118 ms QT Int : 436 ms P-R-T Axes : 042 -30 133 degrees QTc Int : 483 ms Sinus rhythm with marked sinus arrhythmia Possible Left atrial enlargement Left axis deviation Left ventricular hypertrophy with QRS widening and repolarization abnormality Poor R wave progression, consider anterior FL vs. lead placement vs. LVH Inferior infarct (cited on or before 22-OCT-2007) Abnormal ECG When compared with ECG of 16-JUN-2022 18:46, (unconfirmed) Premature ventricular complexes are no longer Present Premature atrial complexes are no longer Present Inverted T waves have replaced nonspecific T wave abnormality in Anterior leads Confirmed by Leonidas Matthews ([id number]) on 06/17/2022 7:21:56 AM Referred By: REFERRED SELF Confirmed By:Yonathan Matthews
[2022-06-17 08:02] LABS: Estimated Average Glucose 128 mg/dl; Hemoglobin A1C 6.1 % (4.5-5.6)
[2022-06-17] MEDS: NICOTINE 21 MG/24 HR TDSY TD SCH (08:02)
[2022-06-17] MEDS: GABAPENTIN 800 MG TAB PO SCH ×2 (08:04→13:33)
[2022-06-17] MEDS ORDERED: ASPIRIN 81 MG ECTAB PO SCH (09:00)
[2022-06-17] MEDS ORDERED: PANTOprazole 40 MG TAB PO SCH (09:00)
[2022-06-17] MEDS ORDERED: MAGNESIUM OXIDE 400 MG TAB PO SCH (09:00)
[2022-06-17] MEDS ORDERED: ISOSORBIDE MONO EXTENDED REL 30 MG TABCR PO SCH (09:00)
[2022-06-17] MEDS ORDERED: LOSARTAN POTASSIUM 50 MG TAB PO SCH (09:00)
[2022-06-17] MEDS ORDERED: PRAVASTATIN SOD 40 MG TAB PO SCH (09:00)
[2022-06-17] MEDS ORDERED: METOPROLOL SUCC 50MG EXT REL TAB PO SCH (09:00)
[2022-06-17] MEDS ORDERED: CHOLECALCIFEROL 1,000 UNITS 25 MCG TAB PO SCH (09:00)
[2022-06-17] MEDS ORDERED: FENOFIBRATE NANOCRYSTALLIZED 48 MG TABLET PO SCH (09:00)
[2022-06-17] MEDS: LORazepam 1 MG TAB PO PRN (11:36)
--- NOTE | 2022-06-17 12:36 | XCELERA ---
[id number]
--- NOTE | 2022-06-17 13:07 | Electrocardiogram Report ---
Test Reason : Blood Pressure : / mmHG Vent. Rate : 087 BPM Atrial Rate : 087 BPM P-R Int : 132 ms QRS Dur : 110 ms QT Int : 380 ms P-R-T Axes : 023 -27 112 degrees QTc Int : 457 ms Sinus rhythm with occasional Premature ventricular complexes and Premature atrial complexes Possible Left atrial enlargement Left ventricular hypertrophy with repolarization abnormality possible Inferior infarct (cited on or before 16-JUN-2022) Abnormal ECG Confirmed by Leonidas Matthews ([id number] on 06/17/2022 1:06:42 PM Referred By: REFERRED SELF Confirmed By:Yonathan Matthews
--- NOTE | 2022-06-17 18:55 | Discharge Summary ---
Date of Service June 17, 2022 Admission HPI Per Admitting Provider The patient is a 66-year-old female with a past medical history including COPD exacerbations, urine tract infection, lower extremity edema, CAD, hypertension, diabetes mellitus, GERD, hyperlipidemia, migraine headache and insomnia. She presented to the emergency department with complaint of intermittent substernal chest discomfort that began about 3 days ago, but worsened in intensity today. The symptoms are accompanied by shortness of breath, dyspnea on exertion and intermittently productive cough. The patient does continue to smoke 1-1/2 to 2 packs daily. She reports that her blood pressure has been high over the past month. Principal Diagnosis hypertension induced angina, no ischemic findings -- hypertensive crisis/emergency Discharge Exam gen aaox3 pleasant nad heent nc at mmm breathing unlabored no accessory muscles good effort skin no rashes no pallor or icterus neuro no focal deficits Discharge Data Allergies Allergy/AdvReac Type Severity Reaction Status Date / Time benzyl alcohol Allergy Severe ANAPHYLAXIS Verified 03/02/22 12:54 prochlorperazine Allergy Severe Anaphylaxis Verified 03/02/22 12:54 saccharin Allergy Severe ANAPHYLAXIS Verified 03/02/22 12:54 Iodinated Contrast Media Allergy Intermediate Rash - IVP Verified 03/02/22 12:54 dye furosemide Allergy Mild rash Verified 03/02/22 12:54 promethazine Allergy Mild rash Verified 03/02/22 12:54 Consultations 06/16/22 20:43 ED Decision to Admit Stat Hospital Course (1) Chest pain: fortunately ischemic w/u negative - troponins very reassuring x3, echo stable from 2011; outside of when BP markedly elevated, no anginal sx at home (none w exertion, stairs, playing with grandson, etc) -pt notes BPs at home were often 180-200 systolic - was trying to take more of her home metoprolol and/or losartan - with no benefit. ---> with reassuring w/u - safe for home. discussed thiazide vs calcium channel atif and risks/benefits of both - she opted for ca+2 atif - starting amlodipine 5mg daily - follow BP at home. sent in refills on losartan and metoprolol as well as she noted she was running low on them due to trying to control BP at home by taking more (2) COPD exacerbation: COPD -- she relates what sound to be obstructive PFTs from [facility] a few years ago. on no maintenance inhalers - discussed rationale. she would like to do things stepwise and add later since adding new BP med now. with breathing stable currently - OK to do things stepwise. (3) Myocardial Infarction: prior hx thereof - trop/echo reassuring that there is no current ischemia (4) Hypertension: See above (5) Hyperlipidemia: Continue pravastatin 40 mg daily and fenofibrate - with CAD likely should be transitioned to atorvastatin or rosuvastatin - will defer to PCP in this regard (6) GERD (gastroesophageal reflux disease): (7) CHF (congestive heart failure): compensated - ?HFpEF (8) Anxiety: Continue trazodone, lorazepam (9) CAD (coronary artery disease): appears currently stable - angina all appearing to be hypertensive urgency/afterload induced (10) Prediabetes: A1c 6.1 (11) Polycythemia: Patient reports being told by hematology that she may need to have phlebotomy due to increased number of red blood cells. admitting physician as well as myself both discussed smoke cessation (and also discussed escalating COPD management) to try to reduce the likely hypoxic nidus for the polycythemia Total Time Total Time Spent Total Time Spent (In Minutes): >30 Discharge Plan Discharge Items Patient Disposition: Home - Self-Care Reason For Visit: CHEST PAIN, UNCONTROLLED HYPERTENSION Discharge Diagnosis: Uncontrolled hypertension Activity: Resume your previous activity Non-emergency contact: Primary Care Provider Call non-emergency contact if: you have any medication questions and your symptoms worsen Follow-up/Referrals: Marcos Jung [Primary Care Provider] - Diet: Regular Addtl Attending Provider Instructions: Uncontrolled hypertension -As we discussed, it really appears that the markedly high blood pressures are causing a lot of strain on your heart leading to the angina you are feeling. Fortunately your cardiac enzymes (troponin levelsa very sensitive test for any concerning amount of strain on your heart or damage to your heart muscle) were completely negative over multiple checks; your echocardiogram looked reassuringly normaland actually our cardiologists were able to find one from 10 years agotoday's looked extremely similar to thatagain very reassuring. -We definitely need to get the blood pressures under better overall control. As we discussed, the 2 most viable options moving forward would be a thiazide diuretic such as hydrochlorothiazide, or a calcium channel atif medicine such as amlodipine. As we weighed the risks and benefits of both, we both felt like amlodipine (the calcium channel atif) would probably be a better fitI will leave the hydrochlorothiazide mentioned in your instructions just in case we need to add yet another medicine, or if the amlodipine does not help/causes side effects. -As we discussed, amlodipine is usually a very "clean" medicationusually a pretty low side effect profile. Because it prevents blood vessels from constricting some, it can cause some lightheadedness whenever he first stand upas you are getting used to the medicine just make sure that you stand for a minute before moving from the bed or the chair when you are getting upthat way if you get lightheaded it is easy to sit down and not have a fall. Otherwise the other main side effect that we look for is that it can sometimes lead to a sudden increase in foot and leg swellinglike we talked about, I think of only seeing that maybe twice in my careerbut the main reason I mention it is because the swelling can be a mystery as to why it happened if we do not make you aware that amlodipine could do it. If it does not happen the next few weeks its very unlikely to. -As a blood pressure medicine "making a dent" in the numbersI generally find amlodipine to be one of the most useful that we have. For blood pressure purposes its really a 5 mg or 10 mg dosingwe will start with 5 mg, follow your blood pressures at home, and then your family doctor can increase things if needed Presumed COPD -Like we were talking, it is most likely that your polycythemia (high red blood cell count) relates to chronic breathing issueswhich in turn are really from smoking/COPD. If at all possible, obviously quitting smoking is the best answer here. However, that can be difficult to doand we could add inhalers to help manage the COPD, which would then help at least improve the breathing some, which might in turn improve the polycythemia. Remember the analogy we made to being at altitude leading to high red blood cellsas it compares to smoking/COPDquitting smoking, or starting appropriate inhalers, can both essentially "lower the altitude"which might help with the high red count. At the same time, definitely continue to follow with hematology given that things like polycythemia are a very niche diagnosis that often does require specialist expertise. -There are 3 main classes of inhalers for COPDanticholinergics (also known as Noé), inhaled steroids, and long-acting beta agonist medications (LABA, or essentially a long-acting albuterol). For COPD, the anticholinergic medicines are usually the most beneficial in the long runso if you end up moving towards starting an inhaler, generally an anticholinergic would be the best to start with. The computer was not allowing me to find your new family docso please bring this discharge paper with you when you follow-up, so that we know they get the information of what was going on during this hospital stay. Pending Studies at Discharge: No Stand-Alone Forms: My [facility] [employer], Smoking Cessation Medications and DC Order Prescriptions: New amlodipine 5 mg tablet 5 mg PO DAILY Qty: 30 1RF Continued isosorbide mononitrate 30 mg tablet extended release 24 hr 30 mg PO QAM gabapentin 800 mg tablet 800 mg PO QID metformin 500 mg tablet 500 mg PO BID fenofibrate micronized 67 mg capsule 67 mg PO QAM omeprazole 40 mg capsule,delayed release(DR/EC) 40 mg PO BID lorazepam 1 mg tablet 1 mg PO QID PRN (Reason: severe anxiety) trazodone 50 mg tablet 100 mg PO HS pravastatin 40 mg tablet 40 mg PO QAM sumatriptan succinate 25 mg tablet 25 mg PO UD PRN (Reason: Headache) albuterol sulfate 90 mcg/actuation HFA aerosol inhaler 2 puff INHALATION QID PRN (Reason: Wheezing) aspirin 81 mg Tablet,Delayed Release (Dr/Ec) 81 mg PO QAM potassium chloride [Klor-Con] 20 mEq Packet 20 meq PO UD PRN (Reason: TAKES WITH BUMEX) nitroglycerin 0.4 mg Tablet, Sublingual 0.4 mg buccal UD PRN (Reason: Chest Pain) bumetanide 1 mg Tablet 1 mg PO UD PRN (Reason: LEG SWELLING) cholecalciferol (vitamin D3) [Vitamin D3] 25 mcg (1,000 unit) Capsule 25 mcg PO 2XWK magnesium oxide 400 mg magnesium Capsule 400 mg PO QAM metoprolol succinate 50 mg tablet extended release 24 hr 50 mg PO QAM Qty: 30 1RF losartan 100 mg tablet 100 mg PO QAM Qty: 30 1RF Discharge Orders: Discharge Order (Routine); Ordered 06/17/22 Ordered By: Michael Engle/Other Patient Handouts: Managing Type 2 Diabetes Admission Data Admit Date/Time: 06/16/22 21:16 Attending Provider: Michael Brooks Admit Provider: Antelmo Maki Primary Care Provider: Marcos Jung Other Providers: Antelmo Maki Other Interventions: Discharge Summary Assessment (RN) Last Done: 06/17/22 15:32 Coding Level of Care Code D/C DAY MANAGEMENT >30 MINS Diagnoses Chest pain R07.9 Chest pain type: unspecified COPD exacerbation J44.1 Myocardial Infarction I21.9 Hypertension I10 Hyperlipidemia E78.5 GERD (gastroesophageal reflux disease) K21.9 CHF (congestive heart failure) I50.9 Anxiety F41.9 CAD (coronary artery disease) I25.10 Prediabetes R73.03 Polycythemia D75.1
[2022-06-17] MEDS ORDERED: traZODone HCL 100 MG TAB PO SCH (21:00)
== END 2022-06-17 16:35 | disposition home or self-care (01) ==
LOC: ED 17:44 → SUATTDRO 21:16 → 4W 21:16 → INTOOBSV 21:16 → 4W 22:07

== ENCOUNTER 2023-08-15 05:25 | Inpatient (IN) ==
--- NOTE | 2023-07-24 13:58 | PAT Medication Instructions ---
Medication Instructions Date of Service July 24, 2023 Home Medications gabapentin 800 mg tablet 800 mg PO QID isosorbide mononitrate 30 mg tablet,extended release 24 hr 30 mg PO QAM lorazepam 1 mg tablet 1 mg PO QID severe anxiety omeprazole 40 mg capsule,delayed release 40 mg PO BID albuterol sulfate 90 mcg/actuation aerosol inhaler 2 puff inhalation Q4H PRN Wheezing pravastatin 40 mg tablet 40 mg PO HS sumatriptan succinate 25 mg tablet 25 mg PO UD PRN Headache nitroglycerin 0.4 mg sublingual tablet 0.4 mg buccal UD PRN Chest Pain apixaban 5 mg tablet (Eliquis) 5 mg PO BID losartan 100 mg tablet 50 mg PO BID nicotine 21 mg/24 hr daily transdermal patch 1 patch transdermal DAILY spironolactone 50 mg tablet (Aldactone) 50 mg PO BID cyanocobalamin (vitamin B-12) 1,000 mcg tablet (Vitamin B-12) 1,000 mcg PO QAM metoprolol succinate 50 mg tablet,extended release 24 hr 25 mg PO BID trazodone 150 mg tablet 150 mg PO HS Continue as directed sumatriptan succinate 25 mg tablet 25 mg PO UD PRN Headache (if needed) nitroglycerin 0.4 mg sublingual tablet 0.4 mg buccal UD PRN Chest Pain (if needed) ASK your surgeon for instructions nicotine 21 mg/24 hr daily transdermal patch 1 patch transdermal DAILY ASK your prescriber and surgeon apixaban 5 mg tablet (Eliquis) 5 mg PO BID DO NOT take the morning of surgery losartan 100 mg tablet 50 mg PO BID spironolactone 50 mg tablet (Aldactone) 50 mg PO BID cyanocobalamin (vitamin B-12) 1,000 mcg tablet (Vitamin B-12) 1,000 mcg PO QAM Take morning of surgery With a small sip of water, OTHERWISE NOTHING TO EAT OR DRINK AFTER MIDNIGHT: gabapentin 800 mg tablet 800 mg PO QID isosorbide mononitrate 30 mg tablet,extended release 24 hr 30 mg PO QAM lorazepam 1 mg tablet 1 mg PO QID severe anxiety (if needed) omeprazole 40 mg capsule,delayed release 40 mg PO BID albuterol sulfate 90 mcg/actuation aerosol inhaler 2 puff inhalation Q4H PRN Wheezing (use if needed; please bring with you to hospital day of surgery if possible) metoprolol succinate 50 mg tablet,extended release 24 hr 25 mg PO BID Take evening before surgery gabapentin 800 mg tablet 800 mg PO QID lorazepam 1 mg tablet 1 mg PO QID severe anxiety (if needed) omeprazole 40 mg capsule,delayed release 40 mg PO BID albuterol sulfate 90 mcg/actuation aerosol inhaler 2 puff inhalation Q4H PRN Wheezing (if needed) pravastatin 40 mg tablet 40 mg PO HS losartan 100 mg tablet 50 mg PO BID spironolactone 50 mg tablet (Aldactone) 50 mg PO BID metoprolol succinate 50 mg tablet,extended release 24 hr 25 mg PO BID trazodone 150 mg tablet 150 mg PO HS Other Notes If you have any questions please call us at [phone] or [phone] or [phone] or [phone]
--- NOTE | 2023-08-01 11:26 | Anesthesiology Consultation ---
Date of Service August 01, 2023 Assessment & Plan (1) Encounter for pre-operative examination: Chart Review Chart Review: Pending: Refer to Additional Notes / Consult section (pending updated cardiac testing on 08/07/23 and final cardio clearance ) and Patient seen in Pre Admission Testing - Please send optimization note along with preop EKG to cardio regarding bigeminy - Awaiting stress test/ECHO scheduled 08/07/23; cardio awaiting tests prior to cardiac clearance with Dr. Borja (will need final cardio clearance after testing done) Per PAT appt on 08/01/23, no recent illness/disease exposures, illness related symptoms, or recent illness/disease positive tests. Will leave to surgeon's discretion if preop Covid testing needed Cannot lay on left side due to prior shoulder fracture Seen cardio 11/01/22= seen for follow up on CAD, CHF, ischemic CM, essential HTN. Has been having palpitations on every other day basis. Will feel heart beating strongly. Found to have increased plaque buildup in femoral artery. Increased pain to left lower extremity. Denies chest pain. CADstatus post CABG, with patent PONCE to LAD, vein graft to diagonal and obtuse marginal, and collaterals from RCA by catheterization January 2017. No new blockages/ischemia seen on stress testing. Continue to monitor. Ischemic cardiomyopathylast EF 40-45%. Continue current medications. Jardiance stopped due to side effects. Euvolemic on exam today. Dyslipidemiaon statin. Essential hypertensionBP elevated today. Stop Norvasccontinue other medications. Add Aldactone. Tobacco abuseencourage smoking cessation. Atrial fibrillationproximal in NSR today. [id number]. Patient with history of fallhigh fall riskpoor candidate for long-term AC. Would benefit from Watchman device. Continue Eliquis cautiously for now. Lower extremity plaque buildupin femoral artery. Refer to vascular surgery for evaluation. Teaching & Discussion Pre-Anesthesia Teaching/Discussion Notes: Instructed NPO after midnight before surgery,except medications with 15 cc of water. Medication instructions provided according to the PAT guidelines. History Surgery Operation Date: 08/15/23 07:30 Proposed Procedures p Femoral Femoral Bypass, Bilateral Femoral Popliteal Bypasses, - Nigel Riley MD s Iliac Angiogram with Possible Stenting - Nigel Riley MD Height/Weight Height: 5 ft 2 in Weight: 60.5 kg Allergies Allergy/AdvReac Type Severity Reaction Status Date / Time benzyl alcohol Allergy Severe Anaphylaxis Verified 07/27/23 16:22 Iodinated Contrast Media Allergy Severe Rash - IVP Verified 07/24/23 12:50 dye lisinopril Allergy Severe chills,sera Verified 07/27/23 16:22 rs prochlorperazine Allergy Severe Anaphylaxis Verified 07/24/23 12:50 saccharin Allergy Severe Anaphylaxis Verified 07/27/23 16:24 simvastatin Allergy Intermediate itching Verified 07/27/23 16:24 furosemide Allergy Mild rash Verified 07/24/23 12:50 promethazine Allergy Mild rash Verified 07/24/23 12:50 fragance Allergy Severe difficulty Uncoded 07/24/23 13:13 breathing and severe sneezing furosemide Allergy Intermediate itching Uncoded 07/27/23 16:24 Medications Home Medications Medication Instructions Recorded Confirmed Last Taken gabapentin 800 mg tablet 800 mg PO QID 01/02/22 07/24/23 03/02/22 08:00 isosorbide mononitrate 30 mg 30 mg PO QAM 01/02/22 07/24/23 03/02/22 07:00 tablet,extended release 24 hr lorazepam 1 mg tablet 1 mg PO QID severe anxiety 01/02/22 07/24/23 03/02/22 07:00 omeprazole 40 mg capsule,delayed 40 mg PO BID 01/02/22 07/24/23 03/02/22 07:00 release albuterol sulfate 90 mcg/actuation 2 puff inhalation Q4H PRN Wheezing 01/03/22 07/24/23 03/01/22 aerosol inhaler pravastatin 40 mg tablet 40 mg PO HS 01/03/22 07/24/23 03/01/22 sumatriptan succinate 25 mg tablet 25 mg PO UD PRN Headache 01/03/22 07/24/23 Unknown nitroglycerin 0.4 mg sublingual 0.4 mg buccal UD PRN Chest Pain 02/27/22 07/24/23 Unknown tablet apixaban 5 mg tablet (Eliquis) 5 mg PO BID 11/28/22 07/24/23 Unknown losartan 100 mg tablet 50 mg PO BID 11/28/22 07/24/23 Unknown nicotine 21 mg/24 hr daily 1 patch transdermal DAILY 11/28/22 07/24/23 Unknown transdermal patch spironolactone 50 mg tablet 50 mg PO BID 11/28/22 07/24/23 Unknown (Aldactone) cyanocobalamin (vitamin B-12) 1,000 mcg PO QAM 07/24/23 07/24/23 Unknown 1,000 mcg tablet (Vitamin B-12) metoprolol succinate 50 mg 25 mg PO BID 07/24/23 07/24/23 Unknown tablet,extended release 24 hr trazodone 150 mg tablet 150 mg PO HS 07/24/23 07/24/23 Unknown Past Medical History Medical History Atrial fibrillation On Eliquis Ischemic cardiomyopathy History of panic attacks worse with large groups PAD (peripheral artery disease) History of stomach ulcers GERD (gastroesophageal reflux disease) Well controlled and stable Anemia s/p iron infusions- last iron infusion June 2023 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 Hypertension Hyperlipidemia Anxiety CHF (congestive heart failure) EF 40-45% per 09/2022 ECHO Exercise / Class Metabolic Activity III < 4 Walking/Shop/Light housework (no chest pain or SOB - with flat surface ambulation ) Past Family History Family History Daughter Family hx of colon cancer Family history of diabetes mellitus FHx: thyroid cancer Sister Family history of diabetes mellitus Brother FHx: kidney cancer Family history of diabetes mellitus FHx: pancreatic cancer Past Surgical History Surgical History History of coronary artery bypass graft x4 vessel bypass (~2001/2002) [facility] x3 vessel bypass (~2009) Dora Wilde follows with Dr Borja ([place]) Family history of reaction to anesthesia DAUGHTER>SLOW TO WAKE UP History of esophagogastroduodenoscopy (EGD) History of colonoscopy H/O abdominal surgery 25-30 YEARS AGO>PART OF STOMACH/COLON/PANCREAS REMOVED D/T STOMACH ULCER History of tooth extraction History of cataract surgery RT/LEFT History of cardiac cath MULTIPLE CATH'S DONE>NO SENTS ([facility]) most recently done in the last five years (9947-8846) done at [facility]. no stents. History of total hysterectomy History of cholecystectomy History of appendectomy Past Anesthesia History No Hx of Anesthesia Complications (with exception to awareness during CABG ) and No Family Hx of Anesthesia Complications (with exception to daughter- slow to wake (just groggy - no reintubation or ICU stay)) History of PONV No Hx of PONV and No Hx of Motion Sickness Social History Smoking Status: Current every day smoker tobacco type: cigarettes Smoking cigarettes per day: 10 cigs daily - down from 2 packs a day Do You Dip or Chew Tobacco: No Hx Alcohol Use: No Hx Substance Use: No substance use type: does not use Review of Systems - Hx of blood transfusion- "many years ago"- unsure why Patient denies chest pain, shortness of breath at rest, cough, wheezing, palpitations. No hx of seizures, stroke, apnea/snoring. No hx of blood clots. Physical Exam Vital Signs VITALS BP 94/59 (baseline per patient- usually low in the morning after taking medications- improves throughout the day- denies any dizziness, lightheadedness or syncope) P 84 TEMP 98.2 SP02 95% RESP 16 Constitutional no acute distress ENMT Mouth: no TMJ clicking Thyromental Distance: > or= 3.5 Finger Breadths (3.5) Mallampati Class: I Full denture on top and bottom Neck neck extension not limited Respiratory normal respiratory effort; no respiratory distress Auscultation: lungs clear to auscultation bilaterally; no wheezes Cardiovascular Heart Sounds: no murmur Vessels: no carotid bruit Heart sounds mildly diminished throughout Irregular rhythm (rate controlled) Musculoskeletal Spine: + kyphosis; no pain with cervical ROM Extremities: extremities normal to inspection Psychiatric Orientation: alert Lab Results Anesthesia Preop Results Results Anesthesia Widget: WBC 12.33 K/ul (4.8-10.8) H 08/01/23 Hgb 14.0 g/dl (12.0-16.0) 08/01/23 Hct 43.0 % (37.0-47.0) 08/01/23 Plt 203 K/uL (130-400) 08/01/23 Na 138 mmol/L (136-145) 08/01/23 K 4.1 mmol/L (3.5-5.1) 08/01/23 Cl 108 mmol/L (98-107) H 08/01/23 CO2 24 mmol/L (21-32) 08/01/23 BUN 26 mg/dl (6-23) H 08/01/23 Creat 0.82 mg/dl (0.6-1.2) 08/01/23 Glucose Level 160 mg/dl (70-99(Fasting)) H 08/01/23 PT 11.4 Seconds (9.0-12.0) 08/01/23 PTT 26.2 Seconds (21.0-31.0) 08/01/23 INR 1.0 (0.9-1.1) 08/01/23 Blood Type A Positive 08/01/23 Antibody Screen NEGATIVE 08/01/23 Testing Electrocardiogram Date: 08/01/23 SR with PACs in a pattern of bigeminy LVH with repolarization abnormality (R in aVL) Old inferior infarct (Cited on or before Jun 16, 2022) When compared to EKG Jun 17, 2022- PACs are now present, morphology of V2 lead markedly changed (? lead placement) Chest X-Ray Date: 08/01/23 Findings: + NAD FINDINGS: Cardiac silhouette is enlarged. Sternotomy wires are present. Surgical clips and yudi of the upper abdomen. No pneumothorax, pleural effusion or airspace consolidation. Mild linear scarring versus atelectasis of the left lung base. Other Testing Aorta with Runoff CTA 05/03/23= Occlusion of the right external iliac artery, right superficial femoral artery, and left superficial femoral artery. Aorta iliac arterial duplex evaluation 12/06/2022 = no AAA or iliac artery aneurysm. Right EIA 100% proximal occlusion with distal reconstitution via collaterals. 30-49% stenosis left KADY. Lower extremity arterial duplex evaluation 12/06/2022 = right HILARIO is moderately decreased. Right TBI is severely decreased. Monophasic waveforms noted throughout the right lower extremity, suggestive of inflow disease. Right SFA is occluded from the ostium to the distal segment. Patent right distal EIA, SFA, PFA, distal SFA, POP A, [employer] APPLIANCES, Rufino A and CM. Left HILARIO is moderately decreased. Left TBI is moderately decreased. 50-74% left proximal SFA stenosis. 50-74% left proximal profunda artery stenosis. Left SFA is occluded from the ostium to the distal segment. Patent left distal EIA, distal SFA, POP A, [employer] APPLIANCES, Rufino A, CM. Ultrasound carotid duplex 10/04/2022 = mild right carotid artery disease with less than 50% stenosis in the right proximal ICA. Mild left carotid artery disease with less than 50% stenosis in the left proximal ICA. Antegrade vertebral artery flow bilaterally.
[2023-08-15] MEDS ORDERED: LACTATED RINGER'S 1,000 ML IV SCH (06:00)
[2023-08-15] MEDS ORDERED: ceFAZolin 2000MG 2,000 MG/15 ML SYR IV SCH (06:00)
[2023-08-15] MEDS ORDERED: LIDOCAINE 2% 2 ML VIAL/AMP(20MG/ML) INFIL ONE (07:03)
[2023-08-15] MEDS ORDERED: MIDAZOLAM HCL 1 MG/ML 2ML VIAL ONE (07:03)
[2023-08-15] MEDS ORDERED: ROCURONIUM BROMIDE 10 MG/ML 5 ML VIAL IV ONE (07:03)
[2023-08-15] MEDS ORDERED: fentaNYL citrate PF 100 MCG/2 ML VIAL ONE ×3 (07:03→12:39)
[2023-08-15] MEDS ORDERED: SUGAMMADEX SODIUM 200 MG/2 ML VIAL IV ONE (07:03)
[2023-08-15] MEDS ORDERED: PROPOFOL IV EMULSION 10 MG/ML 20 ML VIAL IV ONE (07:03)
[2023-08-15] MEDS ORDERED: BUPIVACAINE/EPINEPHRINE 0.5% MPF 1:200,000 30 ML VIAL ONE (07:10)
[2023-08-15] MEDS ORDERED: HEPARIN (PORCINE) 1000 UNIT/ML 10 ML (CATH LAB USE ONLY) ONE (07:10)
[2023-08-15] MEDS ORDERED: LIDOCAINE 1% LOCAL 20 ML VIAL ONE (07:11)
[2023-08-15] MEDS ORDERED: ceFAZolin 330 MG/ML 1 GM VIAL ONE ×2 (07:12→11:48)
[2023-08-15] MEDS ORDERED: THROMBIN FOR SOLN 20000 UNIT KIT ONE (07:12)
[2023-08-15] MEDS ORDERED: GELATIN SPONGE SZ 100 ONE ×2 (07:12→07:56)
[2023-08-15] MEDS ORDERED: HEPARIN SOD (PORCINE) 1000 UNIT/ML ONE ×2 (07:19→10:31)
--- NOTE | 2023-08-15 07:36 | History & Physical Bridge Note ---
Date of Service August 15, 2023 History & Physical Bridge Note I have examined the patient, reviewed the History & Physical and in the interval since the performance of the History & Physical I have noted the following changes of clinical significance: no changes noted
--- NOTE | 2023-08-15 07:36 | History & Physical Report ---
Date of Service August 15, 2023 History of Present Illness Primary Care Provider: Akbar Daniel DO Chief Complaint [id number] here for new pt consult aortoiliac disease with claudication right worse than left. Rest pain is present Reason for Consultation Bilateral leg claudication History of Present Illness I had the pleasure of seeing Sierra today for evaluation of her lower extremities. As you know she is a 67-year-old female who has severe c laudication of her right lower extremity and moderate claudication of her left lower extremity. This has been going on for some time and now has gotten progressively worse over the last 6 to 8 months. She denies rest pain or ulcerations of the lower extremities. She has had a coronary bypass graft in the past x2. She is hypertensive and has a history of carotid disease. She is a smoker of 55 years of 1 pack a day. He says recently she has decreased the amount that she smokes during the day. Her heart history also shows ischemic cardiomyopathy with an ejection fraction of 40 to 45% and paroxysmal atrial fibrillation. He is on anticoagulation for her arrhythmia. He claims a CT angiogram done recently showed occlusion in her pelvis and both lower extremities. Review of Systems 10 systems reviewed. Positive findings include her irregular heartbeat. Occasional cough. Nausea heartburn loss of appetite and diarrhea. She also complains of incontinence. She does have severe anxiety. Physical Exam Vitals & Measurements Input and Output - Last 24 hours (Last 8 hours) No I/O Data Found: Physical exam she is awake alert and oriented x3. She is in no apparent distress. Her blood pressure is 130/68. Radials and carotids are +2 bilaterally. I cannot appreciate carotid bruits on either carotid. Lungs are clear. Heart had a regular rhythm. Abdominal exam is benign. No pulsatile masses are appreciated. Femoral pulses are +2 on the left. The pulses below the groin on the left and nonpalpable. Right lower extremity showed all pulses nonpalpable. Capillary refill is markedly decreased in both lower extremities. There is no evidence of ulcerations of either foot. Neurologic exam grossly intact motor and sensory function. Diagnostic Results CT angiogram shows bilateral superficial femoral artery occlusions as well as a right external iliac artery occlusion. Assessment/Plan Aortoiliac occlusive disease Atherosclerosis of autologous vein bypass graft(s) of the extremities with intermittent claudication, bilateral legs At this point we recommended she obtain a cardiac clearance prior to surgery. We recommended a femoral to femoral bypass and bilateral femoral to popliteal bypasses. At this point she understood the risk options and benefits of this procedure. She elected to go ahead with the planned procedure. We will have her seen by her director erp for preoperative clearance prior to undergoing surgery. Thank you very much for letting us participate in the care of this patient. Sincerely, Gaurav Riley MD Problem List/Past Medical History Ongoing Aortoiliac occlusive disease (atherosclerosis) Tobacco user Medications Home albuterol(albuterol CFC free 90 mcg/inh MDI), 2 puff, inhaled, qid, PRN apixaban(Eliquis 5 mg oral tablet), 5 mg= 1 tab, PO, bid cyanocobalamin(B-12 1000 mcg oral tablet), 1000 mcg= 1 tab, PO, Daily gabapentin(gabapentin 800 mg oral tablet), 800 mg= 1 tab, PO, qid iron dextran(iron dextran 50 mg/mL injectable solution), See Instructions isosorbide mononitrate(isosorbide mononitrate 30 mg oral tablet, extended release), 30 mg= 1 tab, PO, qAM LORazepam(LORazepam 1 mg oral tablet), 1 mg= 1 tab, PO, qid, PRN losartan(losartan 100 mg oral tablet), 100 mg= 1 tab, PO, Daily metoprolol(Metoprolol Succinate ER 50 mg oral tablet, extended release), 50 mg= 1 tab, PO, Daily nitroglycerin(nitroglycerin 0.4 mg sublingual tablet), 0.4 mg= 1 tab, SL, q5min, PRN omeprazole(omeprazole 40 mg oral delayed release capsule), 40 mg= 1 cap, PO, bid pravastatin(pravastatin 40 mg oral tablet), 40 mg= 1 tab, PO, Daily predniSONE(predniSONE 50 mg oral tablet), See Instructions spironolactone(spironolactone 50 mg oral tablet), 50 mg= 1 tab, PO, bid SUMAtriptan(SUMAtriptan 25 mg oral tablet), 25 mg= 1 tab, PO, ONCE, PRN traZODone(traZODone 150 mg oral tablet), 150 mg= 1 tab, PO, qhs Allergies Compazine Anaphylaxis IVP dye Rash Latex Rash Social History Smoking Status Current every day heavy smoker Signature Line Electronic Signature on File Nigel Riley MD Author Signature Dt/Tm: 07/19/2023 07:43 AM Csr Retail Eleazar Ocasio [facility] [address], [address] [place] [address] EJS Result Type: .Outpt Ltr Date of Service: July 19, 2023 07:32 EDT Authorization Status: Final Subject: Consult Note Author or Import Date: MD Riley Eugene J on July 19, 2023 07:43 EDT Verified By: MD Riley Eugene J on July 19, 2023 07:43 EDT Encounter info: [id number], [place] [id number], Clinic, 07/17/2023 - 07/17/2023 Allergies Allergy/AdvReac Type Severity Reaction Status Date / Time benzyl alcohol Allergy Severe Anaphylaxis Verified 08/15/23 05:44 Iodinated Contrast Media Allergy Severe Rash - IVP Verified 08/15/23 05:44 dye lisinopril Allergy Severe chills,sera Verified 08/15/23 05:44 rs prochlorperazine Allergy Severe Anaphylaxis Verified 08/15/23 05:44 saccharin Allergy Severe Anaphylaxis Verified 08/15/23 05:44 simvastatin Allergy Intermediate itching Verified 08/15/23 05:44 furosemide Allergy Mild rash Verified 08/15/23 05:44 promethazine Allergy Mild rash Verified 08/15/23 05:44 fragance Allergy Severe difficulty Uncoded 08/15/23 05:44 breathing and severe sneezing furosemide Allergy Intermediate itching Uncoded 08/15/23 05:44 Home Medications Medication Instructions Recorded Confirmed Type gabapentin 800 mg tablet 800 mg PO QID 01/02/22 08/15/23 History isosorbide mononitrate 30 mg 30 mg PO QAM 01/02/22 08/15/23 History tablet,extended release 24 hr lorazepam 1 mg tablet 1 mg PO QID severe anxiety 01/02/22 08/15/23 History omeprazole 40 mg capsule,delayed 40 mg PO BID 01/02/22 08/15/23 History release albuterol sulfate 90 mcg/actuation 2 puff inhalation Q4H PRN Wheezing 01/03/22 08/15/23 History aerosol inhaler pravastatin 40 mg tablet 40 mg PO HS 01/03/22 08/15/23 History sumatriptan succinate 25 mg tablet 25 mg PO UD PRN Headache 01/03/22 08/15/23 History nitroglycerin 0.4 mg sublingual 0.4 mg buccal UD PRN Chest Pain 02/27/22 08/15/23 History tablet apixaban 5 mg tablet (Eliquis) 5 mg PO BID 11/28/22 08/15/23 History losartan 100 mg tablet 50 mg PO BID 11/28/22 08/15/23 History nicotine 21 mg/24 hr daily 1 patch transdermal DAILY 11/28/22 08/15/23 History transdermal patch spironolactone 50 mg tablet 50 mg PO BID 11/28/22 08/15/23 History (Aldactone) cyanocobalamin (vitamin B-12) 1,000 mcg PO QAM 07/24/23 08/15/23 History 1,000 mcg tablet (Vitamin B-12) metoprolol succinate 50 mg 25 mg PO BID 07/24/23 08/15/23 History tablet,extended release 24 hr trazodone 150 mg tablet 150 mg PO HS 07/24/23 08/15/23 History Past Med/Surg History Medical History Atrial fibrillation On Eliquis Ischemic cardiomyopathy History of panic attacks worse with large groups PAD (peripheral artery disease) History of stomach ulcers GERD (gastroesophageal reflux disease) Well controlled and stable Anemia s/p iron infusions- last iron infusion June 2023 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 Hypertension Hyperlipidemia Anxiety CHF (congestive heart failure) EF 40-45% per 09/2022 ECHO Surgical History History of coronary artery bypass graft x4 vessel bypass (~2001/2002) [facility] x3 vessel bypass (~2009) JEMIMA Wilde follows with Dr Borja ([place]) Family history of reaction to anesthesia DAUGHTER>SLOW TO WAKE UP History of esophagogastroduodenoscopy (EGD) History of colonoscopy H/O abdominal surgery 25-30 YEARS AGO>PART OF STOMACH/COLON/PANCREAS REMOVED D/T STOMACH ULCER History of tooth extraction History of cataract surgery RT/LEFT History of cardiac cath MULTIPLE CATH'S DONE>NO SENTS ([facility]) most recently done in the last five years ([id number]) done at [facility]. no stents. History of total hysterectomy History of cholecystectomy History of appendectomy Family History Daughter Family hx of colon cancer Family history of diabetes mellitus FHx: thyroid cancer Sister Family history of diabetes mellitus Brother FHx: kidney cancer Family history of diabetes mellitus FHx: pancreatic cancer Social History Smoking Status: Current every day smoker Tobacco Type: Cigarettes Cigarettes Per Day: 10 cigs daily - down from 2 packs a day; Second Hand Exposure: Yes; Do You Dip or Chew Tobacco: No; Tobacco Cessation Education Requested by Patient: No Hx Alcohol Use: No Hx Substance Use: No Preferred Language: Kittitian Communication Ability: Effective Car Mover Required: No Beliefs That Will Affect Care: None Current Living Situation: Spouse Current Living Situation Comment: 2 story home, only lives on 1 floor Other Information That Helps Us Care for You: No Feels Safe at Home: Yes Safety Concerns: Feels Safe At This Time Assistive Devices: Cane, Denture - Upper, Denture - Lower and Glasses Assistive Devices Comment: cane prn Results & Data Vital Signs (Past 12 Hours) Vital Signs Temp Pulse Resp BP Pulse Ox O2 Del Method 08/15/23 06:06 36.7 C 83 20 149/105 H 94 Room Air 08/15/23 05:48 Room Air
[2023-08-15] MEDS: HYDROCORTISONE SOD SUCCINATE 100 MG/2 ML VIAL IV SCH (07:46)
[2023-08-15] MEDS ORDERED: ALBUMIN HUMAN 5% 12.5 GM/250 ML VIAL IV ONE ×2 (08:51→14:02)
[2023-08-15] MEDS ORDERED: PHENYLEPHRINE 100MCG/ML 10ML SYR IV ONE (09:24)
[2023-08-15] MEDS ORDERED: PHENYLEPHRINE HCL 10 MG/ML VIAL ONE (09:24)
[2023-08-15] MEDS ORDERED: VISIPAQUE IV PRN (10:21)
[2023-08-15] MEDS ORDERED: PROTAMINE SULFATE 10 MG/ML 5 ML VIAL IV ONE (12:31)
[2023-08-15] MEDS ORDERED: ONDANSETRON INJ 2 MG/ML 2 ML VIAL ONE (13:14)
--- NOTE | 2023-08-15 13:40 | Operative Report ---
Post Operative Report Pre & Post Diagnosis Operation Date: 08/15/23 08:00 Pre-Op Diagnosis: Aortoiliac occlusive disease Atherosclerosis of autologous vein bypass graft(s) of the extremities with intermittent claudication, bilateral legs Post-Op Diagnosis: Aortoiliac occlusive disease Atherosclerosis of autologous vein bypass graft(s) of the extremities with intermittent claudication, bilateral legs I identified the patient and participated in the time-out.: Yes Procedure Operation Date: 08/15/23 08:00 Actual Procedures p Femoral to Femoral Bypass, Bilateral Femoral to Popliteal Prosthetic Above Knee, Bilateral Common Femoral Artery Endarterectomy, Bovine Patch Left Common Femoral Artery - Nigel Riley MD s Left Lower Extremity Angiogram - Nigel Riley MD Surgeon Nigel Riley MD Dredge Pipe Operator Krishna,PAC Estimated Blood Loss 250 Findings Consistent with Post-Op Diagnosis Specimens none Anesthesia Type General Complications none Disposition Accompanied Patient To Recovery: No Disposition: Recovery Room Indications This is a 67-year-old female who was found to have a right distal iliac proximal common femoral artery occlusion as well as bilateral superficial femoral artery occlusions. She has severe claudication and also rest pain of the right foot. There is a question of narrowing in the left common iliac. Arteriography and possible invention of the common iliac as well as femorofemoral bypass and bilateral femoral-popliteal bypasses were recommended. I have discussed the risks options and benefits of the procedure with the patient. The patient understands the risks options and benefits and agrees to the procedure. Description of Procedure Patient was taken the operating room placed supine position. After general anesthesia was accomplished the lower extremities and groins and lower abdomen were prepped and draped in a sterile manner. Patient was identified and a timeout was performed. Longitudinal groin incisions were then made. These were carried down to where the common femoral arteries were seen on both sides. Both common femoral arteries were firm and hard on palpation there was a pulse present in the left femoral. The profundofemoral artery and superficial femoral arteries were fairly soft just beyond their origins. Using the Angio-Seal the left common femoral artery was punctured and 5 [place] sheath inserted. Arteriography was performed of the distal aorta and left common iliac artery and external iliac artery. These were all patent with no significant narrowings. At that point the right common femoral artery was clamped proximally. The superficial and profundofemoral arteries were clamped distally. Longitudinal arteriotomy was started on the common femoral artery at the its bifurcation. It was extended upward and downward over the superficial femoral artery. Plaque was endarterectomized from the mid to distal common femoral artery. Profundofemoral artery lumen was widely patent as well as the superficial femoral artery. A tunnel was then made from groin to groin suprapubically and an 8 mm propatent ringed graft was passed. Patient was heparinized at that time. After adequate position was accomplished the [place]-Gerardo graft was beveled the appropriate size and then the side anastomosis was accomplished using a 5-0 Prolene suture in the usual vascular fashion. Once this was completed it was flushed through the graft. Clamps were then placed on the graft just beyond the anastomosis and the clamps on the femoral arteries were removed. Added hemostasis was noted of the anastomosis. Next the left common femoral artery was clamped proximally and the superficial and profundofemoral arteries were clamped distally. Longitudinal arteriotomy was started at the puncture site and extended upward and downward on the common femoral artery. This was extended onto the superficial femoral artery. Endarterectomy was then performed of the common femoral artery being that there was a large amount of plaque present. Good breakoff points were seen proximal distally. The profundofemoral artery is widely patent. Excellent flow was seen. Due to the high arteriotomy we did place a bovine patch on the arteriotomy site with a running 5-0 Prolene suture. When this was completed we then made the arteriotomy along the distal end of the patch and placed the [place]-Gerardo graft at the side fashion to the patch of the femoral artery using a 5-0 Prolene suture in usual vascular fashion. Prior to completing the closure backbleeding and forward bleeding was allowed to occur. The final few sutures were then placed and securely tied. Clamps were removed. Excellent flow was heard in the profundofemoral artery on both sides. There are faint Doppler signals in the posterior tibial arteries. Being that she did have severe claudication and mild degree of rest pain right foot we decided to go ahead and do the femoropopliteal bypasses. Bilateral lower thigh medial incisions were made on both sides. Both superficial femoral arteries were exposed as it came out of the adductor hiatus. The proximal popliteal arteries appeared soft and very usable. We then used the tunneler and passed a 6 mm propatent ringed graft on the right lower extremity from the groin down to the lower thigh incision. The common femoral artery was then clamped proximal distally as well as the graft in the right groin. A longitudinal incision was then made in the torres of the femorofemoral graft on the right side. The [place]- Gerardo graft for the bypass was then trimmed and beveled in the appropriate fashion. End-to-side anastomosis was accomplished between the 6 mm [place] graft and the torres of the femorofemoral bypass using a 5-0 Prolene suture. Once this was completed clamps were placed on the lower leg graft and the clamps of the femoral artery were removed. The proximal popliteal artery was then clamped proximal distally. A longitudinal arteriotomy was performed. Lumen was widely patent with minimal thickening seen. The [place]-Gerardo graft was then pulled the appropriate length and trimmed and beveled in the appropriate fashion. An end to side anastomosis was then accomplished. The [place] graft and the popliteal artery with a 6-0 Prolene suture in the usual vascular fashion. Once this was completed clamps were removed to the left lower extremity. Good flow was heard with the Doppler beyond the graft. There is good Doppler signal heard at the ankle. Next we did pass a tablet in the right lower extremity as well as a 6 mm [place]-Gerardo propatent graft which was ringed. The torres of the femorofemoral bypass was then clamped proximal distally to this in the right groin. Longitudinal incision made in the torres of the graft and an end to side anastomosis was accomplished and the [place]-Gerardo propatent graft and the torres of the femorofemoral graft with a 5-0 Prolene suture. Once this was completed we placed a clamp on the leg graft and remove the clamps from the femorofemoral bypass. Adequate was stasis was noted the suture line. The popliteal artery and right leg was then clamped proximal distally. Longitudinal arteriotomy was performed. Good patent lumen was noted. The [place]-Gerardo graft was then trimmed and beveled appropriate fashion. End-to-side anastomosis was accomplished and the [place]-Gerardo graft in the popliteal artery using 6-0 Prolene suture in usual vascular fashion. Once this was completed clamps were removed. Added hemostasis was noted with suture line. Good Doppler signals were heard in the posterior tibial at the ankles on both sides. Wounds were inspected. Added hemostasis was seen of all the suture lines in the wounds. The wounds were then closed in usual fashion using running 2-0 Vicryl suture for the femoral sheath, 3-0 Vicryl for all subcutaneous layers, and yudi for the skin. Sterile dressings were applied to the lower thigh incisions. Prevena dressings were applied to both groins.The patient left the operation room in satisfactory condition and tolerated the procedure well. All needle and sponge counts were correct at the end of the procedure.Nasra Kowalski Pac assisted due to lack of resident availability and was necessary for positioning, draping, retraction, wound closure deep layers, subcutaneous tissue, and skin closure and was necessary for assisting with the case. I attest to the content of the Intraoperative Record and any orders documented therein. Any exceptions are noted below.
[2023-08-15] MEDS ORDERED: FLUMAZENIL 0.1 MG/1 ML 10 ML VIAL IV PRN (13:51)
[2023-08-15] MEDS ORDERED: NALOXONE HCL 0.4 MG/1 ML VIAL/CARP IV PRN (13:51)
[2023-08-15] MEDS ORDERED: ePHEDrine sulfate 50 MG/ML AMP IV PRN (13:51)
[2023-08-15] MEDS ORDERED: LABETALOL HCL IV 5 MG/ML 20ML IV PRN (13:51)
[2023-08-15] MEDS ORDERED: ONDANSETRON INJ 2 MG/ML 2 ML VIAL IV PRN (13:51)
[2023-08-15] MEDS ORDERED: HYDROmorphone INJ 1 MG/ML SYRINGE IV PRN (13:51)
[2023-08-15] MEDS ORDERED: ATROPINE SULFATE 0.1 MG/ML 10ML SYR IV PRN (13:51)
[2023-08-15] MEDS ORDERED: PHENYLEPHRINE 100MCG/ML 5ML SYR IV PRN (13:52)
[2023-08-15] MEDS ORDERED: STAT IV Infusion **Titration per Protocol STA (13:52)
[2023-08-15] MEDS: fentaNYL citrate PF 100 MCG/2 ML VIAL IV PRN ×4 (14:00→14:50)
[2023-08-15] MEDS: ALBUMIN 5% 250 ML IV ONE ×2 (14:11→15:59)
[2023-08-15 14:25] LABS: Hematocrit (blood only) 33.1 % (37.0-47.0); Hemoglobin 10.9 g/dl (12.0-16.0); Mean Corpuscular Hemoglobin 32.9 pg (25.0-34.0); Mean Corpuscular Hgb Conc 32.9 g/dL (32.0-36.0); Mean Platelet Volume 10.3 fL (9.4-12.4); Platelet Count 182 K/uL (130-400); RDW Coefficient of Variation 13.9 % (11.5-14.5); RDW Standard Deviation 51.5 fL (36.4-46.3); Red Blood Count 3.31 M/uL (4.20-5.40); White Blood Count 23.55 K/ul (4.8-10.8)
[2023-08-15] MEDS: PHENYLEPHRINE/NSS 25 MG/250 ML BAG IV SCH (14:40)
[2023-08-15 14:46] LABS: Basophils # (auto) 0.04 K/uL (0.00-0.20); Basophils % (auto) 0.2 %; Eosinophils # (auto) 1.53 K/uL (0.00-0.50); Eosinophils % (auto) 6.5 %; Immature Granulocytes % (auto) 1.3 %; Lymphocytes # (auto) 1.06 K/uL (1.20-3.40); Lymphocytes % (auto) 4.5 %; Monocytes # (auto) 1.22 K/uL (0.11-0.59); Monocytes % (auto) 5.2 %; Neutrophils % (auto) 82.3 %
--- NOTE | 2023-08-15 15:13 | Anesthesiology Progress Note ---
Date of Service August 15, 2023 Anesthesia Post Procedure Vital Signs Vital Signs: Temp Pulse Pulse Resp BP BP Pulse Ox 08/15/23 14:55 78 20 124/70 131/78 96 08/15/23 14:48 76 18 134/58 L 136/58 L 98 08/15/23 14:40 78 17 87/59 L 111/61 97 08/15/23 14:30 83 16 106/49 L 94 08/15/23 14:20 74 20 114/48 L 93 08/15/23 14:10 87 18 100/46 L 95 08/15/23 14:00 83 14 98/45 L 92 08/15/23 13:50 83 15 109/46 L 99 08/15/23 13:40 89 15 103/50 L 99 08/15/23 13:30 98.1 F 90 18 104/48 L 100 08/15/23 06:06 98.1 F 83 20 149/105 H 94 08/15/23 05:48 O2 Del Method O2 Flow Rate 08/15/23 14:55 Nasal Cannula 2 08/15/23 14:48 Nasal Cannula 2 08/15/23 14:40 Nasal Cannula 2 08/15/23 14:30 Nasal Cannula 2 08/15/23 14:20 Nasal Cannula 2 08/15/23 14:10 Nasal Cannula 2 08/15/23 14:00 Room Air 08/15/23 13:50 Oxymask 5 08/15/23 13:40 Oxymask 5 08/15/23 13:30 Oxymask 5 08/15/23 06:06 Room Air 08/15/23 05:48 Room Air Pain Intensity Bilateral Upper Leg: Pain Intensity: 5 Transfer of Care Handoff Completed per policy Notes Mental Status: alert / awake / arousable and participated in evaluation Patient Amnestic to Procedure: Yes Nausea / Vomiting: adequately controlled Pain: adequately controlled Airway Patency, RR, SpO2: stable & adequate BP & HR: stable & adequate Hydration State: stable & adequate Anesthetic Complications: no major complications apparent and Pt Satisfied with anesthetic care
[2023-08-15] MEDS ORDERED: PHENYLEPHRINE/NSS 25 MG/250 ML BAG IV PRN (15:52)
[2023-08-15] MEDS ORDERED: NITROGLYCERIN SL 0.4 MG/TAB TAB SL PRN (15:52)
[2023-08-15] MEDS ORDERED: SUMAtriptan succinate 25 MG TAB PO PRN (15:52)
[2023-08-15] MEDS ORDERED: MoRPHine SULFATE 4 MG/ML 1 ML CARP\\VIAL IV PRN (15:52)
[2023-08-15] MEDS ORDERED: ALBUTEROL HFA 8 GM INHALER INH PRN (15:52)
[2023-08-15] MEDS: LACTATED RINGER'S 1,000 ML IV SCH (16:13)
[2023-08-15] MEDS: ceFAZolin 2000MG 2,000 MG/15 ML SYR IV SCH ×2 (16:53→22:36)
[2023-08-15] MEDS: NICOTINE 21 MG/24 HR TDSY TD SCH (16:53)
--- NOTE | 2023-08-15 17:35 | Critical Care Consultation ---
Date of Consultation August 15, 2023 Assessment & Plan (1) CHF (congestive heart failure): (2) Anxiety: (3) CAD (coronary artery disease): (4) PAD (peripheral artery disease): (5) Leukocytosis: (6) COPD with emphysema: (7) Current smoker: Plan -- Peripheral vascular disease S/p femorofemoral bypass 08/15/[address] Riley Continue monitor peripheral pulses Pain management Keep MAP greater than 65 -- A-fib On apixaban at home --Leukocytosis Likely reactive to surgery --Microcytic anemia Baseline hemoglobin around 14 Monitor H&H -- Coronary artery disease s/p CABG On isosorbide mononitrate, metoprolol succinate 25 mg and spironolactone at home --GERD Continue with pantoprazole -- History of migraine Normal sumatriptan at home -- Anxiety/depression Takes lorazepam and trazodone --Prophylaxis VTE: Apixaban GI: Pantoprazole Lines: Peripheral, left radial Diet: Cardiac Plan: Morphine did not help with pain. Pain medication Keep MAP greater than 65 Hold blood pressure medication while the patient is on phenylephrine Monitor for any signs of bleeding. Monitor H&H I have personally spent 38 minutes of critical care time in the direct management of this patient. This is a life/limb threatening event. This includes time spent evaluating patient, direct bedside care, chart review, placing orders, interpretation of diagnostic studies, discussion with consultants, patient, and family members, as well as other required patient management activities. This time is exclusive of all separately billable procedures, and teaching time and separate from and in addition to any other critical care service time. Please note the above document was generated using voice recognition software. It may contain grammatical, syntax or spelling errors. History of Present Illness Attending Physician: Nigel Riley MD History of Present Illness 67-year-old female presented to the hospital for femorofemoral bypass Past medical history: Peripheral vascular disease, COPD, coronary artery disease s/p CABG 2019 2009 Patient was sent to the ICU post OR for further management At the time of examinations patient's map was in the high 70s she was on phenylephrine 0.5 She was complaining of pain in bilateral groin as well as lower abdomen. Denied any tingling sensation in the legs. She was able to move her toes without any issues No nausea vomiting Denied any headache, no blurry vision No chest pain, no shortness of breath Social history: Greater than [id number] smoking history, currently smoking a pack a day History of lung cancer in father was a non-smoker Allergies Allergy/AdvReac Type Severity Reaction Status Date / Time benzyl alcohol Allergy Severe Anaphylaxis Verified 08/15/23 05:44 Iodinated Contrast Media Allergy Severe Rash - IVP Verified 08/15/23 05:44 dye lisinopril Allergy Severe chills,sera Verified 08/15/23 05:44 rs prochlorperazine Allergy Severe Anaphylaxis Verified 08/15/23 05:44 saccharin Allergy Severe Anaphylaxis Verified 08/15/23 05:44 simvastatin Allergy Intermediate itching Verified 08/15/23 05:44 furosemide Allergy Mild rash Verified 08/15/23 05:44 promethazine Allergy Mild rash Verified 08/15/23 05:44 fragance Allergy Severe difficulty Uncoded 08/15/23 05:44 breathing and severe sneezing furosemide Allergy Intermediate itching Uncoded 08/15/23 05:44 Home Medications Medication Instructions Recorded Confirmed Type gabapentin 800 mg tablet 800 mg PO QID 01/02/22 08/15/23 History isosorbide mononitrate 30 mg 30 mg PO QAM 01/02/22 08/15/23 History tablet,extended release 24 hr lorazepam 1 mg tablet 1 mg PO QID severe anxiety 01/02/22 08/15/23 History omeprazole 40 mg capsule,delayed 40 mg PO BID 01/02/22 08/15/23 History release albuterol sulfate 90 mcg/actuation 2 puff inhalation Q4H PRN Wheezing 01/03/22 08/15/23 History aerosol inhaler pravastatin 40 mg tablet 40 mg PO HS 01/03/22 08/15/23 History sumatriptan succinate 25 mg tablet 25 mg PO UD PRN Headache 01/03/22 08/15/23 History nitroglycerin 0.4 mg sublingual 0.4 mg buccal UD PRN Chest Pain 02/27/22 08/15/23 History tablet apixaban 5 mg tablet (Eliquis) 5 mg PO BID 11/28/22 08/15/23 History losartan 100 mg tablet 50 mg PO BID 11/28/22 08/15/23 History nicotine 21 mg/24 hr daily 1 patch transdermal DAILY 11/28/22 08/15/23 History transdermal patch spironolactone 50 mg tablet 50 mg PO BID 11/28/22 08/15/23 History (Aldactone) cyanocobalamin (vitamin B-12) 1,000 mcg PO QAM 07/24/23 08/15/23 History 1,000 mcg tablet (Vitamin B-12) metoprolol succinate 50 mg 25 mg PO BID 07/24/23 08/15/23 History tablet,extended release 24 hr trazodone 150 mg tablet 150 mg PO HS 07/24/23 08/15/23 History Patient History Medical History Atrial fibrillation On Eliquis Ischemic cardiomyopathy History of panic attacks worse with large groups PAD (peripheral artery disease) History of stomach ulcers GERD (gastroesophageal reflux disease) Well controlled and stable Anemia s/p iron infusions- last iron infusion June 2023 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 Hypertension Hyperlipidemia Anxiety CHF (congestive heart failure) EF 40-45% per 09/2022 ECHO Surgical History History of coronary artery bypass graft x4 vessel bypass (~2001/2002) [facility] x3 vessel bypass (~2009) [facility] Andry follows with Dr Borja ([place]) Family history of reaction to anesthesia DAUGHTER>SLOW TO WAKE UP History of esophagogastroduodenoscopy (EGD) History of colonoscopy H/O abdominal surgery 25-30 YEARS AGO>PART OF STOMACH/COLON/PANCREAS REMOVED D/T STOMACH ULCER History of tooth extraction History of cataract surgery RT/LEFT History of cardiac cath MULTIPLE CATH'S DONE>NO SENTS ([facility]) most recently done in the last five years ([id number]) done at [facility]. no stents. History of total hysterectomy History of cholecystectomy History of appendectomy Family History Daughter Family hx of colon cancer Family history of diabetes mellitus FHx: thyroid cancer Sister Family history of diabetes mellitus Brother FHx: kidney cancer Family history of diabetes mellitus FHx: pancreatic cancer Social History Smoking Status: Current every day smoker Tobacco Type: Cigarettes Cigarettes Per Day: 10 cigs daily - down from 2 packs a day; Second Hand Exposure: Yes; Do You Dip or Chew Tobacco: No; Tobacco Cessation Education Requested by Patient: No Hx Alcohol Use: No Hx Substance Use: No Preferred Language: Sami Communication Ability: Effective Environmental Planner Required: No Beliefs That Will Affect Care: None Current Living Situation: Spouse Current Living Situation Comment: 2 story home, only lives on 1 floor Other Information That Helps Us Care for You: No Feels Safe at Home: Yes Safety Concerns: Feels Safe At This Time Assistive Devices: Cane, Denture - Upper, Denture - Lower and Glasses Assistive Devices Comment: cane prn Review of Systems 2 Review of Systems: All systems reviewed & are unremarkable except as noted in HPI & below Physical Exam 2 Physical Exam: Constitutional: No acute distress HEENT: EOMI, PERRLA Respiratory system: Decreased air entry bilaterally, no wheeze, no rhonchi, mild crackles bilateral lower lobes CVS: S1-S2 positive, no murmurs or gallops Abdomen: Soft, nontender, nondistended, positive bowel sounds x4 Extremities: +2 pulses bilaterally radialis, +1 bilateral dorsalis pedis, no cyanosis, no edema, warm extremities Neuro: Awake alert oriented x3 Psych: Normal mood and affect G/U: Positive Vazquez Skin: no rashes, warm and dry Lymphatic: no cervical or axillary lymphadenopathy Results & Data Results & Data Vital Signs (Past 12 Hours) Vital Signs Temp Pulse Pulse Pulse Resp BP BP 08/15/23 16:40 124/69 08/15/23 16:40 81 16 08/15/23 16:30 81 20 08/15/23 16:29 08/15/23 16:15 83 15 08/15/23 16:00 85 08/15/23 16:00 08/15/23 16:00 149/78 H 08/15/23 16:00 81 20 08/15/23 15:59 36.6 C 83 16 121/54 L 08/15/23 15:20 70 16 139/80 08/15/23 15:10 83 16 139/55 L 08/15/23 14:55 78 20 124/70 08/15/23 14:48 76 18 134/58 L 08/15/23 14:40 78 17 87/59 L 08/15/23 14:30 83 16 106/49 L 08/15/23 14:20 74 20 114/48 L 08/15/23 14:10 87 18 100/46 L 08/15/23 14:00 83 14 98/45 L 08/15/23 13:50 83 15 109/46 L 08/15/23 13:40 89 15 103/50 L 08/15/23 13:30 36.7 C 90 18 104/48 L 08/15/23 06:06 36.7 C 83 20 08/15/23 05:48 BP Pulse Ox Pulse Ox O2 Del Method O2 Del Method O2 Flow Rate O2 Flow Rate 08/15/23 16:40 08/15/23 16:40 90 08/15/23 16:30 98 08/15/23 16:29 Nasal Cannula 2 08/15/23 16:15 99 08/15/23 16:00 08/15/23 16:00 98 Nasal Cannula 2 08/15/23 16:00 08/15/23 16:00 98 Nasal Cannula 2 08/15/23 15:59 138/86 99 Nasal Cannula 2 08/15/23 15:20 137/54 L 98 Nasal Cannula 2 08/15/23 15:10 146/75 H 98 Nasal Cannula 2 08/15/23 14:55 131/78 96 Nasal Cannula 2 08/15/23 14:48 136/58 L 98 Nasal Cannula 2 08/15/23 14:40 111/61 97 Nasal Cannula 2 08/15/23 14:30 94 Nasal Cannula 2 08/15/23 14:20 93 Nasal Cannula 2 08/15/23 14:10 95 Nasal Cannula 2 08/15/23 14:00 92 Room Air 08/15/23 13:50 99 Oxymask 5 08/15/23 13:40 99 Oxymask 5 11/29/23 13:30 100 Oxymask 5 08/15/23 06:06 149/105 H 94 Room Air 08/15/23 05:48 Room Air Laboratory Results 08/15/23 14:03 Coding Level of Care Code 90054 CRITICAL CARE 1ST 30-74M Diagnoses CHF (congestive heart failure) I50.9 Anxiety F41.9 CAD (coronary artery disease) I25.10 PAD (peripheral artery disease) I73.9 Leukocytosis D72.829 COPD with emphysema J43.9 Current smoker F17.200
[2023-08-15] MEDS: HYDROmorphone INJ 0.5 MG/0.5 ML SYR IV PRN ×2 (17:37→22:01)
[2023-08-15] MEDS: GABAPENTIN 800 MG TAB PO SCH ×2 (17:37→20:31)
[2023-08-15] MEDS: LORazepam 1 MG TAB PO PRN ×2 (17:41→22:42)
[2023-08-15] MEDS: traZODone HCL 50 MG TAB PO SCH (20:31)
[2023-08-15] MEDS: PANTOprazole 40 MG TAB PO SCH (20:31)
[2023-08-15] MEDS: PRAVASTATIN SOD 40 MG TAB PO SCH (20:31)
[2023-08-16] MEDS: HYDROmorphone INJ 0.5 MG/0.5 ML SYR IV PRN ×6 (01:06→19:45)
[2023-08-16] MEDS: LACTATED RINGER'S 1,000 ML IV SCH ×2 (01:24→10:56)
[2023-08-16] MEDS: LORazepam 1 MG TAB PO PRN ×4 (03:44→22:25)
[2023-08-16 04:59] LABS: BUN Creatinine Ratio 27.9 (10-20); Calcium 8.2 mg/dl (8.6-10.3); Creatinine Clr Calc Pharmacy 76.8 ml/min; Est GFR (Non-African American) 93.1 ml/min; Potassium 3.8 mmol/L (3.5-5.1)
[2023-08-16 05:24] LABS: Basophils # (auto) 0.03 K/uL (0.00-0.20); Basophils % (auto) 0.2 %; Eosinophils # (auto) 0.04 K/uL (0.00-0.50); Eosinophils % (auto) 0.3 %; Hematocrit (blood only) 27.2 % (37.0-47.0); Immature Granulocytes # (auto) 0.06 K/uL (0.01-0.20); Immature Granulocytes % (auto) 0.5 %; Lymphocytes # (auto) 1.51 K/uL (1.20-3.40); Lymphocytes % (auto) 11.7 %; Mean Corpuscular Hemoglobin 33.6 pg (25.0-34.0); Mean Corpuscular Hgb Conc 33.1 g/dL (32.0-36.0); Mean Corpuscular Volume 101.5 fL (80.0-100.0); Mean Platelet Volume 10.5 fL (9.4-12.4); Monocytes # (auto) 1.18 K/uL (0.11-0.59); Monocytes % (auto) 9.1 %; Neutrophils # (auto) 10.12 K/uL (1.40-6.50); Neutrophils % (auto) 78.2 %; Platelet Count 145 K/uL (130-400); RDW Coefficient of Variation 14.1 % (11.5-14.5); RDW Standard Deviation 52.5 fL (36.4-46.3); Red Blood Count 2.68 M/uL (4.20-5.40); White Blood Count 12.94 K/ul (4.8-10.8)
[2023-08-16] MEDS: HYDROCORTISONE SOD SUCCINATE 100 MG/2 ML VIAL IV SCH (06:05)
[2023-08-16] MEDS ORDERED: POTASSIUM CHLORIDE CRTAB 20 MEQ TABCR PO STA (08:05)
--- NOTE | 2023-08-16 08:10 | Critical Care Progress Note ---
Date of Service August 16, 2023 Assessment & Plan (1) CHF (congestive heart failure): (2) Anxiety: (3) CAD (coronary artery disease): (4) PAD (peripheral artery disease): (5) Leukocytosis: (6) COPD with emphysema: (7) Current smoker: Plan -- Peripheral vascular disease S/p femorofemoral bypass 08/15/[address] Riley Continue monitor peripheral pulses Pain management Keep MAP greater than 65 --Anemia Hemoglobin 9 today Baseline is around 14 Continue to monitor -- A-fib On apixaban at home --Leukocytosis Likely reactive to surgery --Microcytic anemia Baseline hemoglobin around 14 Monitor H&H -- Coronary artery disease s/p CABG On isosorbide mononitrate, metoprolol succinate 25 mg and spironolactone at home --GERD Continue with pantoprazole -- History of migraine Normal sumatriptan at home -- Anxiety/depression Takes lorazepam and trazodone --Prophylaxis VTE: Apixaban GI: Pantoprazole Lines: Peripheral, left radial Diet: Cardiac Plan: Pain management with Dilaudid Keep MAP greater than 65 Hold blood pressure medication while the patient is on phenylephrine. Will actively try to wean phenylephrine off Monitor for any signs of bleeding. Monitor H&H Potassium being replaced Disposition as per vascular surgery Please note the above document was generated using voice recognition software. It may contain grammatical, syntax or spelling errors.Any formal questions or concerns about the content, text or information contained within the body of this dictation should be directly addressed to the provider for clarification. Admission and Anticipated Discharge Date Admission Date: August 15, 2023 Subjective Patient seen and examined at bedside. No acute distress, no events overnight Patient has been getting Dilaudid for her pain Her pain is fairly controlled Denies any nausea vomiting Appetite is poor Does have pain in the groin as well as lower abdomen Denies any tingling sensation in the lower extremities. No shortness of breath She was at a point to off phenylephrine at the time of examination with map in the low 70s, high 60s. Review of Systems 2 Review of Systems: All systems reviewed & are unremarkable except as noted in Subjective Physical Exam 2 Physical Exam: Constitutional: No acute distress HEENT: EOMI, PERRLA Respiratory system: Decreased air entry bilaterally, no wheeze, no rhonchi, mild crackles bilateral lower lobes CVS: S1-S2 positive, no murmurs or gallops Abdomen: Soft, nontender, nondistended, positive bowel sounds x4 Extremities: +2 pulses bilaterally radialis, +1 bilateral dorsalis pedis, no cyanosis, no edema, warm extremities Neuro: Awake alert oriented x3 Psych: Normal mood and affect G/U: Positive Vazquez Skin: no rashes, warm and dry Lymphatic: no cervical or axillary lymphadenopathy Results & Data Results & Data Vital Signs (Past 12 Hours) Vital Signs Temp Pulse Resp BP Pulse Ox Pulse Ox O2 Del Method 08/16/23 06:00 36.5 C 92 H 15 124/58 L 96 Nasal Cannula 08/16/23 05:00 96 H 16 101/63 94 Nasal Cannula 08/16/23 04:00 36.9 C 95 H 17 124/69 95 Nasal Cannula 08/16/23 03:00 36.9 C 93 H 16 133/58 L 94 Nasal Cannula 08/16/23 02:09 37.2 C 91 H 15 96 Nasal Cannula 08/16/23 01:00 37.4 C 98 H 17 107/63 95 08/16/23 00:00 37.1 C 87 16 107/60 95 Nasal Cannula 08/15/23 23:59 94 08/15/23 23:50 84 08/15/23 23:00 86 16 122/53 L 94 Nasal Cannula 08/15/23 22:21 Nasal Cannula 08/15/23 22:00 37 C 80 13 111/68 97 Nasal Cannula 08/15/23 21:02 37.1 C 82 13 105/51 L 98 Nasal Cannula O2 Del Method O2 Flow Rate 08/16/23 06:00 2 08/16/23 05:00 2 08/16/23 04:00 2 08/16/23 03:00 2 08/16/23 02:09 2 08/16/23 01:00 08/16/23 00:00 1 08/15/23 23:59 Room Air 08/15/23 23:50 08/15/23 23:00 1 08/15/23 22:21 1 08/15/23 22:00 1 08/15/23 21:02 1 Laboratory Results 08/16/23 04:12 08/16/23 04:12 Coding Level of Care Code 95001 SUB INP/OBS CARE 3/50MIN Diagnoses CHF (congestive heart failure) I50.9 Anxiety F41.9 CAD (coronary artery disease) I25.10 PAD (peripheral artery disease) I73.9 Leukocytosis D72.829 COPD with emphysema J43.9 Current smoker F17.200
[2023-08-16] MEDS: GABAPENTIN 800 MG TAB PO SCH ×4 (08:14→21:57)
[2023-08-16] MEDS: ISOSORBIDE MONO EXTENDED REL 30 MG TABCR PO SCH (08:14)
[2023-08-16] MEDS: PANTOprazole 40 MG TAB PO SCH ×2 (08:14→21:57)
[2023-08-16] MEDS: CYANOCOBALAMIN (B-12) 500 MCG TABLET PO SCH (08:14)
[2023-08-16] MEDS: NICOTINE 21 MG/24 HR TDSY TD SCH (12:21)
--- NOTE | 2023-08-16 15:02 | Surgery Progress Note ---
Date of Service August 16, 2023 Assessment & Plan (1) Atherosclerosis of artery of both lower extremities: Plan: Patient is POD#1 from a fem fem and luis fempop bypasses. She is doing well. She was up in a chair today. Will transfer to surgical floor. (2) Acute blood loss as cause of postoperative anemia: Plan: Patient's drop in hgb is secondary to blood loss from surgery. No active bl eeding is seen. Admission and Anticipated Discharge Date Admission Date: August 15, 2023 Subjective Patient complains of groin and thigh burning. No foot pain. Claims her feet are nice and warm. She has been out of bed. Physical Exam Constitutional: WD/WN, vitals as above Respiratory: normal respiratory effort; no respiratory distress Cardiovascular: Rate/Rhythm: regular rate and regular rhythm Vessels: posterior tibial pulses present (palpable bilaterally) Gastrointestinal (Abdomen): Inspection/Auscultation: abdomen normal to inspection; abdomen not distended Percussion/Palpation: abdomen soft; abdomen nontender Musculoskeletal: no cyanosis or clubbing, extremities motor strength 5/5 Skin: + incision (dressings and prevena dressi ng intact) Neurologic: CN's II-XI intact bilaterally and moves all extremities Psychiatric: Orientation: alert and oriented x 3 Results & Data Vital Signs (Past 12 Hours) Vital Signs Temp Pulse Pulse Resp BP BP BP 08/16/23 13:00 97 H 21 08/16/23 12:00 98 H 14 08/16/23 12:00 116/60 08/16/23 11:00 95 H 11 L 08/16/23 11:00 106/62 08/16/23 10:00 138/57 L 08/16/23 10:00 88 16 08/16/23 09:30 90 17 08/16/23 09:04 36.9 C 91 H 20 106/45 L 115/51 L 08/16/23 09:00 89 14 08/16/23 09:00 115/51 L 08/16/23 08:30 95 H 17 08/16/23 08:29 08/16/23 08:20 100/51 L 08/16/23 08:20 99 H 16 08/16/23 08:10 92 H 17 08/16/23 08:00 93 H 18 08/16/23 08:00 89 08/16/23 08:00 08/16/23 08:00 08/16/23 07:50 96 H 20 08/16/23 07:40 94 H 19 08/16/23 07:30 95 H 16 08/16/23 07:20 92 H 16 08/16/23 07:10 92 H 19 08/16/23 07:00 135/56 L 08/16/23 07:00 92 H 16 08/16/23 06:00 36.5 C 92 H 15 124/58 L 08/16/23 05:00 96 H 16 101/63 08/16/23 04:00 36.9 C 95 H 17 124/69 08/16/23 03:00 36.9 C 93 H 16 133/58 L Pulse Ox Pulse Ox O2 Del Method O2 Del Method O2 Flow Rate O2 Flow Rate 08/16/23 13:00 92 08/16/23 12:00 97 Nasal Cannula 2 08/16/23 12:00 08/16/23 11:00 08/16/23 11:00 08/16/23 10:00 08/16/23 10:00 98 08/16/23 09:30 93 08/16/23 09:04 95 Nasal Cannula 2 08/16/23 09:00 95 08/16/23 09:00 08/16/23 08:30 95 08/16/23 08:29 Nasal Cannula 2 08/16/23 08:20 08/16/23 08:20 95 08/16/23 08:10 97 08/16/23 08:00 96 08/16/23 08:00 08/16/23 08:00 Nasal Cannula 08/16/23 08:00 94 Nasal Cannula 2 08/16/23 07:50 96 08/16/23 07:40 97 08/16/23 07:30 97 08/16/23 07:20 98 08/16/23 07:10 99 08/16/23 07:00 08/16/23 07:00 99 08/16/23 06:00 96 Nasal Cannula 2 08/16/23 05:00 94 Nasal Cannula 2 08/16/23 04:00 95 Nasal Cannula 2 08/16/23 03:00 94 Nasal Cannula 2
[2023-08-16] MEDS: PHENYLEPHRINE/NSS 25 MG/250 ML BAG IV SCH (15:26)
[2023-08-16] MEDS: oxyCODONE/ACETAMINOPHEN 5mg/325mg TAB PO PRN (21:57)
[2023-08-16] MEDS: PRAVASTATIN SOD 40 MG TAB PO SCH (21:57)
[2023-08-16] MEDS: traZODone HCL 50 MG TAB PO SCH (21:57)
[2023-08-16] MEDS: METOPROLOL SUCC 25MG EXT REL TAB PO SCH (23:21)
[2023-08-16] MEDS: LOSARTAN POTASSIUM 50 MG TAB PO SCH (23:28)
[2023-08-16] MEDS: SPIRONOLACTONE 25 MG TAB PO SCH (23:28)
[2023-08-17] MEDS: HYDROmorphone INJ 0.5 MG/0.5 ML SYR IV PRN ×5 (01:49→20:19)
[2023-08-17] MEDS: LORazepam 1 MG TAB PO PRN ×4 (05:18→20:19)
[2023-08-17] MEDS: HYDROCORTISONE SOD SUCCINATE 100 MG/2 ML VIAL IV SCH (06:15)
[2023-08-17] MEDS: ONDANSETRON INJ 2 MG/ML 2 ML VIAL IV PRN ×2 (07:55→14:48)
[2023-08-17] MEDS: NICOTINE 21 MG/24 HR TDSY TD SCH (09:35)
[2023-08-17] MEDS: METOPROLOL SUCC 25MG EXT REL TAB PO SCH (09:36)
[2023-08-17] MEDS: CYANOCOBALAMIN (B-12) 500 MCG TABLET PO SCH (09:36)
[2023-08-17] MEDS: LOSARTAN POTASSIUM 50 MG TAB PO SCH (09:36)
[2023-08-17] MEDS: ISOSORBIDE MONO EXTENDED REL 30 MG TABCR PO SCH (09:36)
[2023-08-17] MEDS: GABAPENTIN 800 MG TAB PO SCH ×4 (09:36→20:17)
[2023-08-17] MEDS: SPIRONOLACTONE 25 MG TAB PO SCH (09:36)
[2023-08-17] MEDS: PANTOprazole 40 MG TAB PO SCH ×2 (09:36→20:16)
--- NOTE | 2023-08-17 09:39 | History & Physical Report ---
Date of Service August 17, 2023 Assessment & Plan Admission and Anticipated Discharge Date Admission Date: August 15, 2023 History of Present Illness Primary Care Provider: Akbar Daniel DO Allergies Allergy/AdvReac Type Severity Reaction Status Date / Time benzyl alcohol Allergy Severe Anaphylaxis Verified 08/15/23 05:44 Iodinated Contrast Media Allergy Severe Rash - IVP Verified 08/15/23 05:44 dye lisinopril Allergy Severe chills,sera Verified 08/15/23 05:44 rs prochlorperazine Allergy Severe Anaphylaxis Verified 08/15/23 05:44 saccharin Allergy Severe Anaphylaxis Verified 08/15/23 05:44 simvastatin Allergy Intermediate itching Verified 08/15/23 05:44 furosemide Allergy Mild rash Verified 08/15/23 05:44 promethazine Allergy Mild rash Verified 08/15/23 05:44 fragance Allergy Severe difficulty Uncoded 08/15/23 05:44 breathing and severe sneezing furosemide Allergy Intermediate itching Uncoded 08/15/23 05:44 Home Medications Medication Instructions Recorded Confirmed Type gabapentin 800 mg tablet 800 mg PO QID 01/02/22 08/15/23 History isosorbide mononitrate 30 mg 30 mg PO QAM 01/02/22 08/15/23 History tablet,extended release 24 hr lorazepam 1 mg tablet 1 mg PO QID severe anxiety 01/02/22 08/15/23 History omeprazole 40 mg capsule,delayed 40 mg PO BID 01/02/22 08/15/23 History release albuterol sulfate 90 mcg/actuation 2 puff inhalation Q4H PRN Wheezing 01/03/22 08/15/23 History aerosol inhaler pravastatin 40 mg tablet 40 mg PO HS 01/03/22 08/15/23 History sumatriptan succinate 25 mg tablet 25 mg PO UD PRN Headache 01/03/22 08/15/23 History nitroglycerin 0.4 mg sublingual 0.4 mg buccal UD PRN Chest Pain 02/27/22 08/15/23 History tablet apixaban 5 mg tablet (Eliquis) 5 mg PO BID 11/28/22 08/15/23 History losartan 100 mg tablet 50 mg PO BID 11/28/22 08/15/23 History nicotine 21 mg/24 hr daily 1 patch transdermal DAILY 11/28/22 08/15/23 History transdermal patch spironolactone 50 mg tablet 50 mg PO BID 11/28/22 08/15/23 History (Aldactone) cyanocobalamin (vitamin B-12) 1,000 mcg PO QAM 07/24/23 08/15/23 History 1,000 mcg tablet (Vitamin B-12) metoprolol succinate 50 mg 25 mg PO BID 07/24/23 08/15/23 History tablet,extended release 24 hr trazodone 150 mg tablet 150 mg PO HS 07/24/23 08/15/23 History Past Med/Surg History Medical History Atrial fibrillation On Eliquis Ischemic cardiomyopathy History of panic attacks worse with large groups PAD (peripheral artery disease) History of stomach ulcers GERD (gastroesophageal reflux disease) Well controlled and stable Anemia s/p iron infusions- last iron infusion June 2023 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 Hypertension Hyperlipidemia Anxiety CHF (congestive heart failure) EF 40-45% per 09/2022 ECHO Surgical History History of coronary artery bypass graft x4 vessel bypass (~2001/2002) [facility] x3 vessel bypass (~2009) [facility] Andry follows with Dr Borja ([place]) Family history of reaction to anesthesia DAUGHTER>SLOW TO WAKE UP History of esophagogastroduodenoscopy (EGD) History of colonoscopy H/O abdominal surgery 25-30 YEARS AGO>PART OF STOMACH/COLON/PANCREAS REMOVED D/T STOMACH ULCER History of tooth extraction History of cataract surgery RT/LEFT History of cardiac cath MULTIPLE CATH'S DONE>NO SENTS ([facility]) most recently done in the last five years (8855-6421) done at [facility]. no stents. History of total hysterectomy History of cholecystectomy History of appendectomy Family History Daughter Family hx of colon cancer Family history of diabetes mellitus FHx: thyroid cancer Sister Family history of diabetes mellitus Brother FHx: kidney cancer Family history of diabetes mellitus FHx: pancreatic cancer Social History Smoking Status: Current every day smoker Tobacco Type: Cigarettes Cigarettes Per Day: 10 cigs daily - down from 2 packs a day; Second Hand Exposure: Yes; Do You Dip or Chew Tobacco: No; Tobacco Cessation Education Requested by Patient: No Hx Alcohol Use: No Hx Substance Use: No Preferred Language: Citizen [place] Communication Ability: Effective Net Coordinator Required: No Beliefs That Will Affect Care: None Current Living Situation: Spouse Current Living Situation Comment: 2 story home, only lives on 1 floor Other Information That Helps Us Care for You: No Feels Safe at Home: Yes Safety Concerns: Feels Safe At This Time Assistive Devices: Cane and Walker Assistive Devices Comment: cane prn Results & Data Vital Signs (Past 12 Hours) Vital Signs Temp Pulse Resp BP Pulse Ox O2 Del Method O2 Flow Rate 08/17/23 07:40 38.0 C H 107 H 20 135/71 94 Nasal Cannula 2 08/17/23 05:22 115/57 L 08/17/23 01:53 36.9 C 08/16/23 23:18 36.7 C 96 H 16 94/55 L 95 Nasal Cannula 2 08/16/23 22:00 Nasal Cannula 2 Code Status & VTE Plan VTE Prophylaxis Plan VTE Prophylaxis will be ordered: Yes
--- NOTE | 2023-08-17 10:02 | Surgery Progress Note ---
Date of Service August 17, 2023 Assessment & Plan (1) Atherosclerosis of artery of both lower extremities: Plan: Patient is POD#2 from a fem fem and luis fempop bypasses. Pulses palpable. She was doing well, but is feeling ill today. She is mildly tachycardic and febrile at 38C. Will order blood cx, chest x-ray, UA, covid test, hospitalist consult. (2) Acute blood loss as cause of postoperative anemia: Plan: Patient's drop in hgb is secondary to blood loss from surgery. No active bleeding is seen. Admission and Anticipated Discharge Date Admission Date: August 15, 2023 Subjective 67 yo f POD #2 after L to R fem fem BPG, BL common femoral endarterectomies, and BL fem-above knee popliteal artery bypasses, seen in f/u today. Pt states she has a WILHELM and feels achy. Admits N/V as well, but has been able to keep down some milk. Per RN, pt has had an intermittent fever since last evening. Denies dysuria or increased cough, SOB, abd pain, leg pain other than her incisions. Review of Systems Review of Systems: All systems reviewed & are unremarkable except as noted in HPI & below Physical Exam Constitutional: WD/WN, vitals as above Respiratory: normal respiratory effort; no respiratory distress Cardiovascular: Rate/Rhythm: regular rate and regular rhythm Vessels: posterior tibial pulses present (palpable bilaterally) Gastrointestinal (Abdomen): Inspection/Auscultation: abdomen normal to inspection; abdomen not distended Percussion/Palpation: abdomen soft; abdomen nontender Musculoskeletal: no cyanosis or clubbing, extremities motor strength 5/5 Skin: + incision (dressings and prevena dressi ng intact) Neurologic: CN's II-XI intact bilaterally and moves all extremities Psychiatric: Orientation: alert and oriented x 3 Results & Data Vital Signs (Past 12 Hours) Vital Signs Temp Pulse Resp BP Pulse Ox O2 Del Method O2 Flow Rate 08/17/23 07:40 38.0 C H 107 H 20 135/71 94 Nasal Cannula 2 08/17/23 05:22 115/57 L 08/17/23 01:53 36.9 C 08/16/23 23:18 36.7 C 96 H 16 94/55 L 95 Nasal Cannula 2 08/16/23 22:00 Nasal Cannula 2
[2023-08-17 10:54] LABS: Appearance Urine Clear (Clear); Bacteria Urine Automated Negative (Negative); Bilirubin Urine Negative (Negative); Blood Urine Negative (Negative); Color Urine Yellow; Epithelial Cell Urine Auto >30 /lpf (0-5); Glucose Urine UA Negative (Negative); Ketones Urine Negative (Negative); Leukocyte Esterase Urine Trace (Negative); Nitrite Urine Negative (Negative); Protein Urine Trace (Negative); RBC Urine Automated 0-4 /hpf (0-4); Specific Gravity Urine 1.018 (1.000-1.030); Urobilinogen Urine Negative (Negative)
[2023-08-17] MEDS: oxyCODONE/ACETAMINOPHEN 5mg/325mg TAB PO PRN (11:01)
--- NOTE | 2023-08-17 11:24 | Hospitalist Consultation ---
Date of Consultation August 17, 2023 Assessment & Plan (1) Postoperative fever: This is a 67yo F with a PMH of type 2 diabetes, dyslipidemia, COPD, CAD status post CABG, HFrEF, paroxysmal atrial fibrillation on Eliquis, hypertension, B12 deficiency, migraine, anxiety disorder, tobacco use and other medical problems listed below who is POD#2 from a fem fem and bilateral fempop bypasses who has developed fever. Developed fever of 38 C overnight with associated nausea meeting SIRs criteria, med consult placed this AM Work up: Covid negative, CXR with no acute process, lactate and procal WNL, covid PCR pending, UA with trace leuk esterase, 5-10 urine WBC, blood culture pending Started empirically on Zosyn, antiemetics KUB ordered given nausea, constipation and is showing prominence of a loop of small bowel in the left upper quadrant may represent ileus versus obstruction Made NPO, consulted general surgery Transferring to PCU given fever and development of hypotension with repeat BP 93/50 Continue empiric Zosyn started this AM, antiemetics, IV fluids with caution given h/o reduced EF (2) PAD (peripheral artery disease): (3) Acute blood loss as cause of postoperative anemia: Hgb 9 today (from 10.9 yesterday, pre-op hgb 15.7) in setting of post op blood loss anemia. Asymptomatic. No evidence of active bleeding. Continue to monitor daily CBC (4) Atherosclerosis of artery of both lower extremities: (5) Current smoker: POD#2 from a fem fem and bilateral fem pop bypasses who has developed fever Eliquis being resumed this evening per vascular surgery, continue statin Wound vac care per primary (6) CHF (congestive heart failure): Echo from 07/08 with EF 40-45%, mild LVH Following with Dr. Borja of [facility] cardiology Holding spironolactone 50mg BID today in setting of infection, vomiting Continue losartan 100mg daily, Toprol 50mg daily (7) Paroxysmal atrial fibrillation: HR 107 this morning in setting of in infection. Surgery resuming Eliquis this evening, cont. Toprol for rate control (8) COPD with emphysema: 94% on 2L NC O2. Does not require O2 at baseline but was dropping to 86% overnight. CXR without acute abnormality. Obtain nocturnal oximetry study (9) Hypertension: Normotensive. Continue losartan, Toprol (10) CAD (coronary artery disease): Chronic, stable. Continue statin, Imdur, Toprol (11) Anxiety: Severe anxiety. Continue home Ativan 1mg PO QID which she confirms she takes 4x/day (12) Hyperlipidemia: Continue statin DVT Ppx: vasc surgery resuming Eliquis this evening Code status: FULL PCP: Fredy Patient seen in collaboration with Dr. Negron. Please see addendum. Thank you for this consultation. We will follow the patient with you during their hospital stay. You can reach a [facility] via [place]. Supervising Physician Co-Signing Physician Notes Patient is a 67-year-old female with multiple comorbidities was consulted for postop fever management. Patient underwent femorofemoral and bilateral femoropopliteal bypasses by Dr. Riley on 08/15/2023. Patient states having nausea, vomiting, constipation and some abdominal discomfort. She developed fever overnight as well. Reports chronic cough unchanged. Also reports some discomfort at the site of surgery. Please review HPI for complete details. I personally reviewed blood work, imaging studies at the time of consultation. KUB suggestive of possible ileus versus small bowel obstruction. Blood cultures pending. RN also noted patient dropping oxygen at bedtime. Physical Exam: Vitals signs as noted above General Appearance:Moderately built and nourished, no apparent distress Head: normocephalic, Atraumatic Eyes: normal inspection, EOMI Neck: supple, Trachea midline Respiratory/Chest: Decreased breath sounds, CTA, No accessory muscle use Cardiovascular: Irregularly irregular, tachycardia Abdomen/GI:Soft, Mild RLQ tender, Bowel sounds decreased Extremities/Musculoskeletal:normal inspection, no edema, chronic venous stasis changes Neurologic/Psych:AAOX3, grossly no focal neurological deficits, +Surgical wounds,+yudi, wound Vac Skin: normal color, warm Postoperative fever Possible sepsis Suspected ileus versus small bowel obstruction No obvious source of infection Blood cultures pending Empirically started on Zosyn IV fluids, monitor volume status while on IV fluids General surgery consulted for further evaluation May need NG tube placement if persistent nausea/vomiting N.p.o. for now until surgery evaluation DVT Px as per Primary team Agree with holding diuretics for now Vitamin D deficiency Started on supplements COPD Hypoxia Suspected nocturnal hypoxia Incentive spirometry Agree with nocturnal oximetry study I personally reviewed the record. Patient is interviewed and examined at bedside. Patient's care is coordinated with Jeanette Victoria PA-C. Please refer to the documentation above for details of patient's presentation and for discussion of other issues. History of Present Illness Reason for Consultation: post op fever Attending Physician: Nigel Riley MD History of Present Illness This is a 67yo F with a PMH of type 2 diabetes, dyslipidemia, COPD, CAD status post CABG, HFrEF, paroxysmal atrial fibrillation on Eliquis, hypertension, B12 deficiency, migraine, anxiety disorder, tobacco use and other medical problems listed below who is POD#2 from a fem fem and bilateral fempop bypasses. Patient has been recovering well but developed a fever and nausea overnight and medical consult was placed for further evaluation. She is mildly tachycardic with HR 107 and febrile at 38 C. Patient states she developed nausea overnight with 3 episodes of emesis. Denies any jay abdominal pain but is tender around the area of bilateral wound VAC at femoral sites. Denies any lightheadedness, headache, nasal congestion, chest pain, palpitations, shortness of breath, dysuria. No bowel movement since Sunday. Does have a cough, but states it is chronic and unchanged. Denies any recent known sick contacts prior to surgery. Is now following with a different manager pest - Dr. Borja of [facility] and her medication list was reconciled. Allergies Allergy/AdvReac Type Severity Reaction Status Date / Time benzyl alcohol Allergy Severe Anaphylaxis Verified 08/15/23 05:44 Iodinated Contrast Media Allergy Severe Rash - IVP Verified 08/15/23 05:44 dye lisinopril Allergy Severe chills,sera Verified 08/15/23 05:44 rs prochlorperazine Allergy Severe Anaphylaxis Verified 08/15/23 05:44 saccharin Allergy Severe Anaphylaxis Verified 08/15/23 05:44 simvastatin Allergy Intermediate itching Verified 08/15/23 05:44 furosemide Allergy Mild rash Verified 08/15/23 05:44 promethazine Allergy Mild rash Verified 08/15/23 05:44 Home Medications Medication Instructions Recorded Confirmed Type gabapentin 800 mg tablet 800 mg PO QID 01/02/22 08/17/23 History isosorbide mononitrate 30 mg 30 mg PO QAM 01/02/22 08/17/23 History tablet,extended release 24 hr lorazepam 1 mg tablet 1 mg PO QID severe anxiety 01/02/22 08/17/23 History omeprazole 40 mg capsule,delayed 40 mg PO BID 01/02/22 08/17/23 History release albuterol sulfate 90 mcg/actuation 2 puff inhalation Q4H PRN Wheezing 01/03/22 08/17/23 History aerosol inhaler pravastatin 40 mg tablet 40 mg PO HS 01/03/22 08/17/23 History sumatriptan succinate 25 mg tablet 25 mg PO UD PRN Headache 01/03/22 08/17/23 History nitroglycerin 0.4 mg sublingual 0.4 mg buccal UD PRN Chest Pain 02/27/22 08/17/23 History tablet apixaban 5 mg tablet (Eliquis) 5 mg PO BID 11/28/22 08/17/23 History losartan 100 mg tablet 100 mg PO DAILY 11/28/22 08/17/23 History nicotine 21 mg/24 hr daily 1 patch transdermal DAILY 11/28/22 08/17/23 History transdermal patch spironolactone 50 mg tablet 50 mg PO BID 11/28/22 08/17/23 History (Aldactone) cyanocobalamin (vitamin B-12) 1,000 mcg PO QAM 07/24/23 08/17/23 History 1,000 mcg tablet (Vitamin B-12) metoprolol succinate 50 mg 50 mg PO DAILY 07/24/23 08/17/23 History tablet,extended release 24 hr trazodone 150 mg tablet 150 mg PO HS 07/24/23 08/17/23 History Patient History Medical History Atrial fibrillation On Eliquis Ischemic cardiomyopathy History of panic attacks worse with large groups PAD (peripheral artery disease) History of stomach ulcers GERD (gastroesophageal reflux disease) Well controlled and stable Anemia s/p iron infusions- last iron infusion June 2023 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 Hypertension Hyperlipidemia Anxiety CHF (congestive heart failure) EF 40-45% per 09/2022 ECHO Surgical History History of coronary artery bypass graft x4 vessel bypass (~2001/2002) [facility] in [place] x3 vessel bypass (~2009) JEMIMA Wilde follows with Dr Borja ([place]) Family history of reaction to anesthesia DAUGHTER>SLOW TO WAKE UP History of esophagogastroduodenoscopy (EGD) History of colonoscopy H/O abdominal surgery 25-30 YEARS AGO>PART OF STOMACH/COLON/PANCREAS REMOVED D/T STOMACH ULCER History of tooth extraction History of cataract surgery RT/LEFT History of cardiac cath MULTIPLE CATH'S DONE>NO SENTS ([facility]) most recently done in the last five years ([id number]) done at [facility]. no stents. History of total hysterectomy History of cholecystectomy History of appendectomy Family History Daughter Family hx of colon cancer Family history of diabetes mellitus FHx: thyroid cancer Sister Family history of diabetes mellitus Brother FHx: kidney cancer Family history of diabetes mellitus FHx: pancreatic cancer Social History Smoking Status: Current every day smoker Tobacco Type: Cigarettes Cigarettes Per Day: 10 cigs daily - down from 2 packs a day; Second Hand Exposure: Yes; Do You Dip or Chew Tobacco: No; Tobacco Cessation Education Requested by Patient: No Hx Alcohol Use: No Hx Substance Use: No Preferred Language: Maori Communication Ability: Effective It Web Development Consultant Required: No Beliefs That Will Affect Care: None Current Living Situation: Spouse Current Living Situation Comment: 2 story home, only lives on 1 floor Other Information That Helps Us Care for You: No Feels Safe at Home: Yes Safety Concerns: Feels Safe At This Time Assistive Devices: Cane and Walker Assistive Devices Comment: cane prn Review of Systems Review of Systems: At least ten systems reviewed and negative except as noted in the HPI. Physical Exam Physical Exam: Please see Dr. Negron's addendum for physical exam. Results & Data Results & Data Vital Signs (Past 12 Hours) Vital Signs Temp Pulse Resp BP Pulse Ox O2 Del Method O2 Flow Rate 08/17/23 08:00 Nasal Cannula 2 08/17/23 07:40 38.0 C H 107 H 20 135/71 94 Nasal Cannula 2 08/17/23 05:22 115/57 L 08/17/23 01:53 36.9 C Laboratory Results Urine 08/17/23 Range/Units 10:30 Urine Color Yellow Urine Appearance Clear (Clear) Urine pH 6.0 (4.5-7.5) Ur Specific Longs 1.018 (1.000-1.030) Urine Protein Trace H (Negative) Urine Glucose (UA) Negative (Negative) Diagnostic Findings Chest X-Ray 08/17/23 09:45 XR chest 2V PA/lateral HISTORY: 67 years-old Female fever, cough acute cough with fever COMPARISON: 08/01/2023 TECHNIQUE: AP view of the chest FINDINGS: Cardiac silhouette is enlarged. Sternotomy wires are present. Surgical clips and yudi of the upper abdomen. No pneumothorax, pleural effusion or airspace consolidation. Mild linear scarring versus atelectasis of the left lung base. IMPRESSION: No acute process. ACT 112: Negative or not required by law. The above report was generated using voice recognition software. It may contain grammatical, syntax or spelling errors. Electronically signed by: Jaime Osullivan M.D. 08/17/2023 11:44 AM
[2023-08-17] MEDS ORDERED: PIPERACILLIN/TAZOBACTAM 4.5 GM in DEXTROSE 5% MINI-B 100 ML IV ONE (11:30)
[2023-08-17] MEDS ORDERED: POLYETHYLENE (MIRALAX) 17 GM PACK PO PRN (11:39)
[2023-08-17] MEDS ORDERED: DOCUSATE SODIUM 100 MG CAP PO SCH (11:45)
--- NOTE | 2023-08-17 11:45 | XRay Report ---
XR chest 2V PA/lateral HISTORY: 67 years-old Female fever, cough acute cough with fever COMPARISON: 08/01/2023 TECHNIQUE: AP view of the chest FINDINGS: Cardiac silhouette is enlarged. Sternotomy wires are present. Surgical clips and yudi of the upper abdomen. No pneumothorax, pleural effusion or airspace consolidation. Mild linear scarring versus at electasis of the left lung base. IMPRESSION: No acute process. ACT 112: Negative or not required by law. The above report was generated using voice recognition software. It may contain grammatical, syntax o r spelling errors. Electronically signed by: Jaime Osullivan M.D. 08/17/2023 11:44 AM
--- NOTE | 2023-08-17 14:06 | XRay Report ---
XR KUB/Abdomen 1 view CLINICAL HISTORY: Abd pain TECHNIQUE: 1 view of the abdomen was obtained. Comparison: Comparison is made to chest radiograph 02/20/2017 and CTA abdomen 05/03/2023 FINDINGS: Lung bases are unremarkable. Degenerative changes are seen in the visualized skeleton. Small bowel di lation measuring up to 43 mm as above. A moderate amount of stool is noted within the large bowel. IMPRESSION: Prominence of a loop of small bowel in the left upper quadrant may represent ileus versus obstruction . ACT 112: Negative or not required by law. Electronically signed by: Lit Leyva M.D. 08/17/2023 2:04 PM
[2023-08-17] MEDS: SODIUM CHLORIDE 0.9% 1,000 ML IV SCH (14:48)
--- NOTE | 2023-08-17 15:09 | Surgery Consultation ---
Date of Consultation August 17, 2023 Assessment & Plan (1) Ileus, postoperative: Patient is a pleasant 67 yo female with PMH of A fib, COPD emphysema, PAD, CT, HLD, HTN, GERD, CHF , CAD, Anemia, anxiety that underwent an Femoral to Femoral Bypass, Bilateral Femoral to Popliteal Prosthetic Above Knee, Bilateral Common Femoral Artery Endarterectomy, Bovine Patch Left Common Femoral Artery, Left Lower Extremity Angiogram with Dr. Riley on 08/16/23. Patient reports she has not had much to eat since surgery except some milk and crackers, loss of appetite. She reports that she has been feeling feverish with chills, nausea and vomiting since yesterday. She denies abdominal pain and has been passing flatus. She reports a history of chronic diarrhea since having a perforated gastric ulcer which required partial removal of stomach, bowels, and pancreas 30 years ago. Last BM was 08/16/23 before surgery. Other surgical history includes appendectomy and cholecystectomy. on exam abdomen is soft, non tender, non distended, This may likely represent a post operative ileus. Last episode of emesis was this AM. Discussed the possibly of an NG tube if emesis persists. Patient would like to hold of on this. Also discussed that she may need repeat imaging at some point if her symptoms become worse or the need for possible surgery however given her past abdominal surgical history she may not be a candidate for that at this facility. KUB reading : Prominence of a loop of small bowel in the left upper quadrant may represent ileus versus obstruction. Recommending: Conservative treatment Keep NPO IV Fluids for hydration IV antiemetic IV antibiotics IV analgesic If vomiting persists NG tube Will discuss case with on-call surgeon and further recommendations will be forthcoming. Supervising Physician Co-Signing Physician Notes As per Margareth LIRIANO The patient is resting comfortably in bed at this time no further nausea no abdominal pain passing flatus stating her lower extremities are warm and without any pain Has not had anything to eat would like something to eat She is alert coherent comfortable in no distress The abdomen is completely benign there is no tenderness no distention Groin incision both VAC system in place The right foot has palpable dorsalis pedis and posterior tibial warm the left foot +1 posterior tibial cannot feel dorsalis pedis the foot is warm The present etiology possibly related to an ileus but clinic it is resolved therefore we can start the patient on a diet we will follow along with you History of Present Illness Reason for Consultation: Small bowel obstruction vs ileus Attending Physician: Nigel Riley MD History of Present Illness Patient is a pleasant 67 yo female with PMH of A fib, COPD emphysema, PAD, CT, HLD, HTN, GERD, CHF , CAD, Anemia, anxiety that underwent an Femoral to Femoral Bypass, Bilateral Femoral to Popliteal Prosthetic Above Knee, Bilateral Common Femoral Artery Endarterectomy, Bovine Patch Left Common Femoral Artery, Left Lower Extremity Angiogram with Dr. Riley on 08/16/23. Patient reports she has not had much to eat since surgery except some milk and crackers, loss of appetite. She reports that she has been feeling feverish with chills, nausea and vomiting since yesterday. She denies abdominal pain and has been passing flatus. She reports a history of chronic diarrhea since having a perforated gastric ulcer which required partial removal of stomach, bowels, and pancreas 30 years ago. Last BM was 08/16/23 before surgery. Other surgical history includes appendectomy and cholecystectomy. Allergies Allergy/AdvReac Type Severity Reaction Status Date / Time benzyl alcohol Allergy Severe Anaphylaxis Verified 08/15/23 05:44 Iodinated Contrast Media Allergy Severe Rash - IVP Verified 08/15/23 05:44 dye lisinopril Allergy Severe chills,sera Verified 08/15/23 05:44 rs prochlorperazine Allergy Severe Anaphylaxis Verified 08/15/23 05:44 saccharin Allergy Severe Anaphylaxis Verified 08/15/23 05:44 simvastatin Allergy Intermediate itching Verified 08/15/23 05:44 furosemide Allergy Mild rash Verified 08/15/23 05:44 promethazine Allergy Mild rash Verified 08/15/23 05:44 Home Medications Medication Instructions Recorded Confirmed Type gabapentin 800 mg tablet 800 mg PO QID 01/02/22 08/17/23 History isosorbide mononitrate 30 mg 30 mg PO QAM 01/02/22 08/17/23 History tablet,extended release 24 hr lorazepam 1 mg tablet 1 mg PO QID severe anxiety 01/02/22 08/17/23 History omeprazole 40 mg capsule,delayed 40 mg PO BID 01/02/22 08/17/23 History release albuterol sulfate 90 mcg/actuation 2 puff inhalation Q4H PRN Wheezing 01/03/22 08/17/23 History aerosol inhaler pravastatin 40 mg tablet 40 mg PO HS 01/03/22 08/17/23 History sumatriptan succinate 25 mg tablet 25 mg PO UD PRN Headache 01/03/22 08/17/23 History nitroglycerin 0.4 mg sublingual 0.4 mg buccal UD PRN Chest Pain 02/27/22 08/17/23 History tablet apixaban 5 mg tablet (Eliquis) 5 mg PO BID 11/28/22 08/17/23 History losartan 100 mg tablet 100 mg PO DAILY 11/28/22 08/17/23 History nicotine 21 mg/24 hr daily 1 patch transdermal DAILY 11/28/22 08/17/23 History transdermal patch spironolactone 50 mg tablet 50 mg PO BID 11/28/22 08/17/23 History (Aldactone) cyanocobalamin (vitamin B-12) 1,000 mcg PO QAM 07/24/23 08/17/23 History 1,000 mcg tablet (Vitamin B-12) metoprolol succinate 50 mg 50 mg PO DAILY 07/24/23 08/17/23 History tablet,extended release 24 hr trazodone 150 mg tablet 150 mg PO HS 07/24/23 08/17/23 History Patient History Medical History Atrial fibrillation On Eliquis Ischemic cardiomyopathy History of panic attacks worse with large groups PAD (peripheral artery disease) History of stomach ulcers GERD (gastroesophageal reflux disease) Well controlled and stable Anemia s/p iron infusions- last iron infusion June 2023 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 Hypertension Hyperlipidemia Anxiety CHF (congestive heart failure) EF 40-45% per 09/2022 ECHO Surgical History History of coronary artery bypass graft x4 vessel bypass (~2001/2002) [facility] x3 vessel bypass (~2009) JORGEDora Andry follows with Dr Borja ([place]) Family history of reaction to anesthesia DAUGHTER>SLOW TO WAKE UP History of esophagogastroduodenoscopy (EGD) History of colonoscopy H/O abdominal surgery 25-30 YEARS AGO>PART OF STOMACH/COLON/PANCREAS REMOVED D/T STOMACH ULCER History of tooth extraction History of cataract surgery RT/LEFT History of cardiac cath MULTIPLE CATH'S DONE>NO SENTS ([facility]) most recently done in the last five years ([id number]) done at [facility]. no stents. History of total hysterectomy History of cholecystectomy History of appendectomy Family History Daughter Family hx of colon cancer Family history of diabetes mellitus FHx: thyroid cancer Sister Family history of diabetes mellitus Brother FHx: kidney cancer Family history of diabetes mellitus FHx: pancreatic cancer Social History Smoking Status: Current every day smoker Tobacco Type: Cigarettes Cigarettes Per Day: 10 cigs daily - down from 2 packs a day; Second Hand Exposure: Yes; Do You Dip or Chew Tobacco: No; Hx Alcohol Use: No Hx Substance Use: No Preferred Language: Irish Communication Ability: Effective Electronic Device Repairer Required: No Beliefs That Will Affect Care: None Current Living Situation: Spouse Current Living Situation Comment: 2 story home, only lives on 1 floor Feels Safe at Home: Yes Assistive Devices: Cane and Walker Review of Systems Constitutional: + fever, + chills and + anorexia Ear, Nose, Mouth, Throat: no problem reported Respiratory: no dyspnea wearing O2 but reports she does not feel SOB Cardiovascular: no chest pain Gastrointestinal: + nausea and + vomiting; no abdominal pa in and no bloating Genitourinary: no problem reported Musculoskeletal: + problem reported s/p bilateral femoral bypass Physical Exam Physical Exam: alert oriented Constitutional: cooperative; no acute distress and + uncomfortable Respiratory: normal respiratory effort and able to speak in complete sentences; no respiratory distress Cardiovascular: Rate/Rhythm: regular rate Gastrointestinal (Abdomen): Inspection/Auscultation: abdomen normal to inspection and + abdominal surgical scar; abdomen not distended Percussion /Palpation: abdomen soft; abdomen nontender, no guarding and abdomen not rigid Skin: Prevena vacs to bilateral thighs Results & Data Vital Signs (Past 12 Hours) Vital Signs Temp Pulse Resp BP Pulse Ox O2 Del Method O2 Flow Rate 08/17/23 14:16 97.9 F 80 14 93/50 L 96 Room Air 2 08/17/23 08:00 Nasal Cannula 2 08/17/23 07:40 100.4 F H 107 H 20 135/71 94 Nasal Cannula 2 08/17/23 05:22 115/57 L Diagnostic Findings [place], [place] [phone] XRay Report Patient: TRUMAN DORADO Admit Date: 08/15/23 MR#: [id number] Address1: [address] [place] [address] Acct ID:[id number] Address2: Date: 1955 [facility] Zip: [place] [id number] Age: 67 Location: 3N Sex: F Room/Bed: [facility] Att Phy: Nigel Riley M.D. Diagnosis: Right Iliac Occlusion and Bilateral Superficial Fe Marie Phy: Akbar Daniel DO Service Date: 08/17/23 Fam Phy: Interpreting Phy: Lit Leyva MDAdmit Phy: Nigel Riley M.D. Ordering Phy: Velasquez Negron MD cc: ~ XR KUB/Abdomen 1 view CLINICAL HISTORY: Abd pain TECHNIQUE: 1 view of the abdomen was obtained. Comparison: Comparison is made to chest radiograph 02/20/2017 and CTA abdomen 05/03/2023 FINDINGS: Lung bases are unremarkable. Degenerative changes are seen in the visualized skeleton. Small bowel dilation measuring up to 43 mm as above. A moderate amount of stool is noted within the large bowel. IMPRESSION: Prominence of a loop of small bowel in the left upper quadrant may represent ileus versus obstruction. ACT 112: Negative or not required by law. Electronically signed by: Lit Leyva M.D. 08/17/2023 2:04 PM Dictated: 08/17/231401 Transcribed: 08/17/231401 PG Care Time/CCT Total # of Minutes Spent Total Time Spent with Patient: Total time spent is greater than 50% in coordination of care (as documented) at patient's floor/unit and/or counseling patient: Coding Level of Care Code 50115 INT INP/OBS CARE 40MIN Diagnoses Ileus, postoperative K91.89; K56.7
[2023-08-17] MEDS: PIPERACILLIN/TAZOBACTAM 4.5 GM in DEXTROSE 5% MINI-B 100 ML IV SCH (17:48)
[2023-08-17] MEDS: APIXABAN 5 MG TABLET PO SCH (20:16)
[2023-08-17] MEDS: PRAVASTATIN SOD 40 MG TAB PO SCH (20:16)
[2023-08-17] MEDS: traZODone HCL 50 MG TAB PO SCH (20:16)
[2023-08-18] MEDS: PIPERACILLIN/TAZOBACTAM 4.5 GM in DEXTROSE 5% MINI-B 100 ML IV SCH ×3 (02:00→17:42)
[2023-08-18] MEDS: SODIUM CHLORIDE 0.9% 1,000 ML IV SCH (03:35)
[2023-08-18] MEDS: oxyCODONE/ACETAMINOPHEN 5mg/325mg TAB PO PRN ×3 (04:44→21:25)
[2023-08-18 06:49] LABS: Calcium 8.2 mg/dl (8.6-10.3); Creatinine Clr Calc Pharmacy 94.5 ml/min; Est GFR (African American) 113.8 ml/min; Est GFR (Non-African American) 98.2 ml/min; Magnesium 1.5 mg/dl (1.7-2.4); Potassium 3.9 mmol/L (3.5-5.1)
[2023-08-18 06:59] LABS: Hematocrit (blood only) 22.9 % (37.0-47.0); Hemoglobin 7.5 g/dl (12.0-16.0); Mean Corpuscular Hemoglobin 33.9 pg (25.0-34.0); Mean Corpuscular Hgb Conc 32.8 g/dL (32.0-36.0); Mean Corpuscular Volume 103.6 fL (80.0-100.0); Mean Platelet Volume 10.9 fL (9.4-12.4); Platelet Count 106 K/uL (130-400); RDW Coefficient of Variation 13.5 % (11.5-14.5); RDW Standard Deviation 51.3 fL (36.4-46.3); Red Blood Count 2.21 M/uL (4.20-5.40); White Blood Count 10.56 K/ul (4.8-10.8)
[2023-08-18 07:27] LABS: Basophils # (auto) 0.01 K/uL (0.00-0.20); Basophils % (auto) 0.1 %; Eosinophils # (auto) 0.05 K/uL (0.00-0.50); Eosinophils % (auto) 0.5 %; Immature Granulocytes # (auto) 0.05 K/uL (0.01-0.20); Immature Granulocytes % (auto) 0.5 %; Lymphocytes # (auto) 1.09 K/uL (1.20-3.40); Lymphocytes % (auto) 10.3 %; Monocytes # (auto) 0.88 K/uL (0.11-0.59); Monocytes % (auto) 8.3 %; Neutrophils # (auto) 8.48 K/uL (1.40-6.50); Neutrophils % (auto) 80.3 %; Polychromasia 1+
--- NOTE | 2023-08-18 07:54 | Surgery Progress Note ---
Date of Service August 18, 2023 Assessment & Plan (1) Ileus, postoperative: Plan: The ileus appears resolved Will increase her diet Admission and Anticipated Discharge Date Admission Date: August 15, 2023 Subjective She feels better no nausea no abdominal discomfort main discomfort she has in her groin areas Tolerated oral intake yesterday would like more to eat Passing flatus but no bowel movement yet Physical Exam Physical Exam: Alert coherent Abdomen completely benign Results & Data Vital Signs (Past 12 Hours) Vital Signs Temp Pulse Pulse Pulse Pulse Resp BP 08/18/23 07:49 37.0 C 73 17 117/70 08/18/23 07:42 08/18/23 07:38 08/18/23 03:54 93 H 08/18/23 03:32 36.8 C 105 H 20 08/17/23 23:59 08/17/23 23:57 94 H 08/17/23 23:55 98 H 08/17/23 23:40 104 H 08/17/23 23:00 36.6 C 98 H 20 128/74 08/17/23 20:00 BP Pulse Ox Pulse Ox Pulse Ox Pulse Ox O2 Del Method O2 Del Method 08/18/23 07:49 99 Nasal Cannula 08/18/23 07:42 Nasal Cannula 08/18/23 07:38 08/18/23 03:54 95 Nasal Cannula 08/18/23 03:32 124/56 L 90 Nasal Cannula 08/17/23 23:59 94 08/17/23 23:57 08/17/23 23:55 92 Nasal Cannula 08/17/23 23:40 82 L 08/17/23 23:00 98 Nasal Cannula 08/17/23 20:00 Nasal Cannula O2 Del Method O2 Del Method O2 Flow Rate O2 Flow Rate O2 Flow Rate 08/18/23 07:49 3 08/18/23 07:42 2 08/18/23 07:38 Nasal Cannula 2 08/18/23 03:54 2 08/18/23 03:32 08/17/23 23:59 Nasal Cannula 2 08/17/23 23:57 08/17/23 23:55 2 08/17/23 23:40 Room Air 08/17/23 23:00 2 08/17/23 20:00 2
[2023-08-18] MEDS: PANTOprazole 40 MG TAB PO SCH ×2 (08:35→20:55)
[2023-08-18] MEDS: ISOSORBIDE MONO EXTENDED REL 30 MG TABCR PO SCH (08:37)
[2023-08-18] MEDS: METOPROLOL SUCC 50MG EXT REL TAB PO SCH (08:37)
[2023-08-18] MEDS: CYANOCOBALAMIN (B-12) 500 MCG TABLET PO SCH (08:38)
[2023-08-18] MEDS: LOSARTAN POTASSIUM 50 MG TAB PO SCH (08:38)
[2023-08-18] MEDS: CHOLECALCIFEROL 1,000 UNITS 25 MCG TAB PO SCH (08:39)
[2023-08-18] MEDS: GABAPENTIN 800 MG TAB PO SCH ×4 (08:40→20:55)
[2023-08-18] MEDS: NICOTINE 21 MG/24 HR TDSY TD SCH (08:41)
[2023-08-18] MEDS: LORazepam 1 MG TAB PO PRN ×3 (08:52→21:25)
[2023-08-18] MEDS ORDERED: SODIUM CHLORIDE 0.9% 250 ML IV PRN (09:34)
[2023-08-18] MEDS: APIXABAN 5 MG TABLET PO SCH ×2 (09:41→20:55)
[2023-08-18] MEDS: HYDROmorphone INJ 0.5 MG/0.5 ML SYR IV PRN ×2 (09:45→17:57)
--- NOTE | 2023-08-18 10:02 | Surgery Progress Note ---
Date of Service August 18, 2023 Assessment & Plan (1) Atherosclerosis of artery of both lower extremities: Plan: Patient is POD#3 from a fem fem and luis fempop bypasses. Pulses palpable. Doing better today. No increase wbc and no fever today (2) Acute blood loss as cause of postoperative anemia: Plan: Patient's drop in hgb now 7.5. Will transfuse today. Admission and Anticipated Discharge Date Admission Date: August 15, 2023 Subjective Feeling better today. No complaints of foot pain. Nausea also better and passing flatus Physical Exam Constitutional: WD/WN, vitals as above Respiratory: normal respiratory effort; no respiratory distress Cardiovascular: Rate/Rhythm: regular rate and regular rhythm Vessels: posterior tibial pulses present (palpable bilaterally) Gastrointestinal (Abdomen): Inspection/Auscultation: abdomen normal to inspection; abdomen not distended Percussion/Palpation: abdomen soft; abdomen nontender Musculoskeletal: no cyanosis or clubbing, extremities motor strength 5/5 Skin: + incision (dressings and prevena dressi ng intact) Neurologic: CN's II-XI intact bilaterally and moves all extremities Psychiatric: Orientation: alert and oriented x 3 Results & Data Vital Signs (Past 12 Hours) Vital Signs Temp Pulse Pulse Pulse Pulse Resp BP 08/18/23 07:49 37.0 C 73 17 117/70 08/18/23 07:42 08/18/23 07:38 08/18/23 03:54 93 H 08/18/23 03:32 36.8 C 105 H 20 08/17/23 23:59 08/17/23 23:57 94 H 08/17/23 23:55 98 H 08/17/23 23:40 104 H 08/17/23 23:00 36.6 C 98 H 20 128/74 BP Pulse Ox Pulse Ox Pulse Ox Pulse Ox O2 Del Method O2 Del Method 08/18/23 07:49 99 Nasal Cannula 08/18/23 07:42 Nasal Cannula 08/18/23 07:38 08/18/23 03:54 95 Nasal Cannula 08/18/23 03:32 124/56 L 90 Nasal Cannula 08/17/23 23:59 94 08/17/23 23:57 08/17/23 23:55 92 Nasal Cannula 08/17/23 23:40 82 L 08/17/23 23:00 98 Nasal Cannula O2 Del Method O2 Del Method O2 Flow Rate O2 Flow Rate O2 Flow Rate 08/18/23 07:49 3 08/18/23 07:42 2 08/18/23 07:38 Nasal Cannula 2 08/18/23 03:54 2 08/18/23 03:32 08/17/23 23:59 Nasal Cannula 2 08/17/23 23:57 08/17/23 23:55 2 08/17/23 23:40 Room Air 08/17/23 23:00 2
[2023-08-18] MEDS: MAGNESIUM SULFATE / D5W 1 GM/100 ML BAG IV SCH ×2 (10:57→14:11)
--- NOTE | 2023-08-18 11:21 | Hospitalist Progress Note ---
Date of Service August 18, 2023 Assessment & Plan (1) Postoperative fever: (2) PAD (peripheral artery disease): (3) Acute blood loss as cause of postoperative anemia: (4) Atherosclerosis of artery of both lower extremities: (5) Current smoker: (6) CHF (congestive heart failure): (7) Paroxysmal atrial fibrillation: (8) COPD with emphysema: (9) Hypertension: (10) CAD (coronary artery disease): (11) Anxiety: (12) Hyperlipidemia: Plan This is a 67yo F with a PMHx significant for type 2 diabetes, dyslipidemia, COPD, CAD status post CABG, HFrEF, paroxysmal atrial fibrillation on Eliquis, hypertension, B12 deficiency, migraine, anxiety disorder, tobacco use s/p fem fem and bilateral fempop bypasses on 08/15 with new onset fever. Fever Sepsis Hypotension Developed fever of 38 C on 08/16 with elevated WBC >29K, associated nausea Work up: Covid negative, CXR with no acute process, lactate and procal WNL, covid PCR negative, UA with trace leuk esterase, no urine Cx. Blood Cx with NGTD CT abd/pelvis to further determine infectious source Continue Zosyn at this time (WBC currently wnl) Continue antiemetics KUB ordered given nausea: noted constipation, also concerning for ileus versus obstruction General surgery consulted -advancing pt's diet currently Holding IV fluids at this time in this pt with Hx of HFrEF- BP currently stable Ileus Noted on KUB CT abd/pelvis ordered for follow up and to further determine source of infection as noted above General surgery consulted -advancing pt's diet currently Acute Blood Loss Anemia Pt with hgb drop from 15.7-->10.9-->9-->7.5 Transfused 2U of pRBCs by primary team on 08/18 Asymptomatic No evidence of active bleeding Continue to monitor daily CBC Atherosclerosis of artery of both lower extremities Current smoker s/p fem fem and bilateral fem pop bypasses on 08/15 Eliquis resumed by vascular surgery (primary), continue statin Wound vac care per primary CHF (congestive heart failure) Echo from 07/08 with EF 40-45%, mild LVH Following with Dr. Borja of [facility] cardiology Holding spironolactone 50mg BID in setting of hypotension, consider re-start of spironolactone at lower dose in AM Continue losartan 100mg daily, Toprol 50mg daily Paroxysmal atrial fibrillation HR stable Continue Toprol for rate control Eliquis resumed by primary team Continue to monitor Hypertension Currently normotensive, though on the lower end Continue losartan, Toprol As above, consider re-start of spironolactone at lower dose in AM CAD (coronary artery disease) Chronic, stable. Continue statin, Imdur, Toprol COPD with emphysema Currently on RA Does not require O2 at baseline but was dropping to 86% in the past CXR without acute abnormality. Nocturnal oximetry study noting 7 desaturations- continue with oxygen at night, will need intermediate frame tender. Consider pulmonology follow up after discharge Anxiety Severe anxiety Continue home Ativan 1mg PO QID which she confirms she takes 4x/day PCP follow up Hyperlipidemia Continue statin Diet: HH DVT Ppx: Eliquis Code status: FULL Admission and Anticipated Discharge Date Admission Date: August 15, 2023 Subjective Pt seen in the AM. Was AAOx3 but quickly fell back asleep when no longer being stimulated. Denied any concerns when awake. Review of Systems Review of Systems: All systems reviewed & are unremarkable except as noted in Subjective Physical Exam Physical Exam: General: Alert, orientedx3 when stimulated. No acute distress Psych: Appropriate mood and affect Neuro: Drowsy, easily falls asleep without stimulation HEENT: NC/AT CV: RRR, Normal s1, s2. Resp: Breath sounds clear bilaterally, no increased effort of breathing. Abdomen: Soft, nontender, nondistended. Extremities: No edema in lower extremities bilaterally. Results & Data Results & Data Vital Signs (Past 12 Hours) Vital Signs Temp Pulse Pulse Pulse Pulse Resp BP 08/18/23 07:49 37.0 C 73 17 117/70 08/18/23 07:42 08/18/23 07:38 08/18/23 03:54 93 H 08/18/23 03:32 36.8 C 105 H 20 08/17/23 23:59 08/17/23 23:57 94 H 08/17/23 23:55 98 H 08/17/23 23:40 104 H BP Pulse Ox Pulse Ox Pulse Ox Pulse Ox O2 Del Method O2 Del Method 08/18/23 07:49 99 Nasal Cannula 08/18/23 07:42 Nasal Cannula 08/18/23 07:38 08/18/23 03:54 95 Nasal Cannula 08/18/23 03:32 124/56 L 90 Nasal Cannula 08/17/23 23:59 94 08/17/23 23:57 08/17/23 23:55 92 Nasal Cannula 08/17/23 23:40 82 L O2 Del Method O2 Del Method O2 Flow Rate O2 Flow Rate O2 Flow Rate 08/18/23 07:49 3 08/18/23 07:42 2 08/18/23 07:38 Nasal Cannula 2 08/18/23 03:54 2 08/18/23 03:32 08/17/23 23:59 Nasal Cannula 2 08/17/23 23:57 08/17/23 23:55 2 08/17/23 23:40 Room Air
--- NOTE | 2023-08-18 17:38 | XRay Report ---
XR chest 1V portable CLINICAL HISTORY: transfusion rxn COMPARISON STUDY: Chest radiograph August 17, 2023. FINDINGS: Median sternotomy wires and mediastinal surgical clips are noted. Old, healed proximal left humeral fracture is incidentally noted. There is no pneumothorax or pleural effusion. There is no co nsolidation or evidence for pulmonary edema. The appearance of the chest is unchanged. IMPRESSION: No acute cardiopulmonary findings. No change in appearance of the chest. ACT 112: Negative or not required by law. Electronically signed by: Jose Dias M.D. 08/18/2023 5:37 PM
[2023-08-18 17:58] LABS: Appearance Urine Cloudy (Clear); Bacteria Urine Automated Negative (Negative); Bilirubin Urine Negative (Negative); Blood Urine Negative (Negative); Color Urine Yellow; Epithelial Cell Urine Auto >30 /lpf (0-5); Glucose Urine UA Negative (Negative); Ketones Urine Negative (Negative); Leukocyte Esterase Urine Negative (Negative); Nitrite Urine Negative (Negative); Protein Urine Trace (Negative); RBC Urine Automated 0-4 /hpf (0-4); Specific Gravity Urine 1.022 (1.000-1.030); Urobilinogen Urine Negative (Negative)
[2023-08-18 17:59] LABS: Basophils # (auto) 0.02 K/uL (0.00-0.20); Basophils % (auto) 0.2 %; Eosinophils # (auto) 0.14 K/uL (0.00-0.50); Eosinophils % (auto) 1.3 %; Hematocrit (blood only) 26.9 % (37.0-47.0); Hemoglobin 8.8 g/dl (12.0-16.0); Immature Granulocytes # (auto) 0.03 K/uL (0.01-0.20); Immature Granulocytes % (auto) 0.3 %; Lymphocytes # (auto) 0.91 K/uL (1.20-3.40); Lymphocytes % (auto) 8.7 %; Mean Corpuscular Hemoglobin 32.6 pg (25.0-34.0); Mean Corpuscular Hgb Conc 32.7 g/dL (32.0-36.0); Mean Corpuscular Volume 99.6 fL (80.0-100.0); Mean Platelet Volume 10.8 fL (9.4-12.4); Monocytes # (auto) 0.74 K/uL (0.11-0.59); Monocytes % (auto) 7.1 %; Neutrophils % (auto) 82.4 %; Platelet Count 106 K/uL (130-400); RDW Coefficient of Variation 15.6 % (11.5-14.5); RDW Standard Deviation 56.4 fL (36.4-46.3); White Blood Count 10.44 K/ul (4.8-10.8)
[2023-08-18 18:02] LABS: Blood Urine Negative (Negative)
[2023-08-18 18:14] LABS: BUN Creatinine Ratio 21.1 (10-20); Calcium 8.2 mg/dl (8.6-10.3); Creatinine Clr Calc Pharmacy 69.2 ml/min; Est GFR (African American) 101.4 ml/min; Est GFR (Non-African American) 87.5 ml/min; Magnesium 1.9 mg/dl (1.7-2.4); Phosphorus 2.6 mg/dl (2.5-4.9); Potassium 4.3 mmol/L (3.5-5.1)
--- NOTE | 2023-08-18 18:49 | CT Scan Report ---
CT OF THE ABDOMEN AND PELVIS WITHOUT CONTRAST CLINICAL HISTORY: ileus/SBO COMPARISON STUDY: CTA with runoff May 03, 2023. KUB August 17, 2023. TECHNIQUE: Axial images of the abdomen and pelvis were obtained without IV contrast. Images were revi ewed in the axial, sagittal, and coronal planes. Automated exposure control was utilized for the ann dy. A dose lowering technique was utilized adhering to the principles of ALARA. FINDINGS: There are trace bilateral pleural effusions. Median sternotomy wires and postoperative find ings consistent with bypass grafting are noted. The heart is enlarged. No pneumatosis, free air or po rtal venous gas is present. Evaluation of the abdomen and pelvis is suboptimal on this unenhanced exa m. Mild dilatation of the common bile duct is unchanged and likely related to cholecystectomy. There are calcified cannula was within the spleen. There is symmetric bilateral perinephric infiltration. T his is unchanged. Adrenal glands and pancreas are unremarkable. No peripancreatic infiltration is pre sent. Postoperative findings within the stomach are noted. There is no evidence for a bowel obstructi on. The bowel gas pattern is normal. There are postoperative findings consistent with recent femoral to femoral bypass grafting. Soft tissue gas is expected in the early postoperative setting. There are skin yudi. No unexpected radiopaque foreign bodies are present. Stranding within the operative be d is also expected in the early postoperative setting. No significant hematoma is present. IMPRESSION: 1. No evidence for a bowel obstruction. Unremarkable bowel gas pattern. No CT evidence for an ileus. 2. Status post recent femoral to femoral bypass grafting, as described above. No unexpected findings on unenhanced exam. ACT 112: Negative or not required by law. Electronically signed by: Jose Dias M.D. 08/18/2023 6:48 PM
[2023-08-18] MEDS: ONDANSETRON INJ 2 MG/ML 2 ML VIAL IV PRN (18:50)
[2023-08-18] MEDS ORDERED: METOCLOPRAMIDE HCL INJ 5 MG/ML 2 ML VIAL IV ONE (20:28)
[2023-08-18] MEDS: traZODone HCL 50 MG TAB PO SCH (20:55)
[2023-08-18] MEDS: PRAVASTATIN SOD 40 MG TAB PO SCH (20:55)
[2023-08-18] MEDS ORDERED: SODIUM CHLORIDE 0.9% 1,000 ML IV ONE (21:16)
[2023-08-19] MEDS: PIPERACILLIN/TAZOBACTAM 4.5 GM in DEXTROSE 5% MINI-B 100 ML IV SCH ×2 (02:00→09:09)
[2023-08-19] MEDS: HYDROmorphone INJ 0.5 MG/0.5 ML SYR IV PRN ×3 (02:02→19:10)
[2023-08-19] MEDS: LORazepam 1 MG TAB PO PRN ×4 (03:47→19:10)
[2023-08-19 06:09] LABS: Basophils # (auto) 0.02 K/uL (0.00-0.20); Basophils % (auto) 0.2 %; Eosinophils # (auto) 0.17 K/uL (0.00-0.50); Eosinophils % (auto) 2.1 %; Hematocrit (blood only) 24.9 % (37.0-47.0); Hemoglobin 8.1 g/dl (12.0-16.0); Immature Granulocytes # (auto) 0.04 K/uL (0.01-0.20); Immature Granulocytes % (auto) 0.5 %; Lymphocytes # (auto) 1.54 K/uL (1.20-3.40); Lymphocytes % (auto) 18.6 %; Mean Corpuscular Hemoglobin 32.1 pg (25.0-34.0); Mean Corpuscular Hgb Conc 32.5 g/dL (32.0-36.0); Mean Corpuscular Volume 98.8 fL (80.0-100.0); Mean Platelet Volume 10.7 fL (9.4-12.4); Monocytes # (auto) 0.67 K/uL (0.11-0.59); Monocytes % (auto) 8.1 %; Neutrophils # (auto) 5.85 K/uL (1.40-6.50); Neutrophils % (auto) 70.5 %; Platelet Count 113 K/uL (130-400); RDW Coefficient of Variation 15.3 % (11.5-14.5); RDW Standard Deviation 56.1 fL (36.4-46.3); Red Blood Count 2.52 M/uL (4.20-5.40); White Blood Count 8.29 K/ul (4.8-10.8)
[2023-08-19 06:49] LABS: Albumin Globulin Ratio 1.3 (0.9-2); Albumin Level 2.6 gm/dl (3.4-5.0); BUN Creatinine Ratio 28.6 (10-20); Bilirubin,Total 0.5 mg/dl (0.2-1.0); Calcium 7.7 mg/dl (8.6-10.3); Creatinine Clr Calc Pharmacy 98.5 ml/min; Est GFR (Non-African American) 100.1 ml/min; Magnesium 1.8 mg/dl (1.7-2.4); Phosphorus 2.5 mg/dl (2.5-4.9); Potassium 3.9 mmol/L (3.5-5.1); Total Protein 4.6 gm/dl (6.0-8.3)
[2023-08-19] MEDS: CHOLECALCIFEROL 1,000 UNITS 25 MCG TAB PO SCH (08:19)
[2023-08-19] MEDS: NICOTINE 21 MG/24 HR TDSY TD SCH (08:19)
[2023-08-19] MEDS: CYANOCOBALAMIN (B-12) 500 MCG TABLET PO SCH (08:19)
[2023-08-19] MEDS: ISOSORBIDE MONO EXTENDED REL 30 MG TABCR PO SCH (08:20)
[2023-08-19] MEDS: LOSARTAN POTASSIUM 50 MG TAB PO SCH (08:20)
[2023-08-19] MEDS: APIXABAN 5 MG TABLET PO SCH ×2 (08:21→20:10)
[2023-08-19] MEDS: PANTOprazole 40 MG TAB PO SCH ×2 (08:21→20:10)
[2023-08-19] MEDS: GABAPENTIN 800 MG TAB PO SCH ×4 (08:21→20:10)
[2023-08-19] MEDS: METOPROLOL SUCC 50MG EXT REL TAB PO SCH (08:21)
--- NOTE | 2023-08-19 08:23 | Surgery Progress Note ---
Date of Service August 19, 2023 Assessment & Plan (1) Atherosclerosis of artery of both lower extremities: Plan: Patient is POD#4 from a fem fem and luis fempop bypasses. Pulses remain palpable. She is out of bed and ambulating. Still requiring oxygen. (2) Acute blood loss as cause of postoperative anemia: Plan: Patient developed fever after one unit yesterday. Hgb today 8.1. She is asymptomatic at this time. Will start on iron. Admission and Anticipated Discharge Date Admission Date: August 15, 2023 Subjective Patient says she feels "crappy" today. Complains of groin pain and shooting pain in the inside of her thighs. Physical Exam Constitutional: WD/WN, vitals as above Respiratory: normal respiratory effort; no respiratory distress Cardiovascular: Rate/Rhythm: regular rate and regular rhythm Vessels: posterior tibial pulses present (palpable bilaterally) Gastrointestinal (Abdomen): Inspection/Auscultation: abdomen normal to inspection Percussion/Palpation: abdomen soft; abdomen nontender Musculoskeletal: no cyanosis or clubbing, extremities motor strength 5/5 Skin: + incision (Prevena drsg intact. Lower thigh incisions dry and clean) Neurologic: CN's II-XI intact bilaterally and moves all extremities Psychiatric: Orientation: alert and oriented x 3 Results & Data Vital Signs (Past 12 Hours) Vital Signs Temp Pulse Pulse Resp BP BP Pulse Ox 08/19/23 07:57 08/19/23 07:40 37.2 C 72 18 141/79 H 93 08/19/23 03:30 36.9 C 92 H 18 127/69 87 L 08/19/23 00:20 100 H 08/18/23 23:59 08/18/23 22:50 37.2 C 92 H 18 92/44 L 92 08/18/23 22:39 O2 Del Method O2 Del Method O2 Flow Rate O2 Flow Rate 08/19/23 07:57 Nasal Cannula 2 08/19/23 07:40 Nasal Cannula 2 08/19/23 03:30 Nasal Cannula 2 08/19/23 00:20 08/18/23 23:59 Nasal Cannula 2 08/18/23 22:50 Nasal Cannula 2 08/18/23 22:39 Nasal Cannula 2
[2023-08-19] MEDS: oxyCODONE/ACETAMINOPHEN 5mg/325mg TAB PO PRN ×3 (08:27→17:53)
--- NOTE | 2023-08-19 12:39 | Hospitalist Progress Note ---
Date of Service August 19, 2023 Assessment & Plan (1) Postoperative fever: (2) PAD (peripheral artery disease): (3) Acute blood loss as cause of postoperative anemia: (4) Atherosclerosis of artery of both lower extremities: (5) Current smoker: (6) CHF (congestive heart failure): (7) Paroxysmal atrial fibrillation: (8) COPD with emphysema: (9) Hypertension: (10) CAD (coronary artery disease): (11) Anxiety: (12) Hyperlipidemia: Plan This is a 67yo F with a PMHx significant for type 2 diabetes, dyslipidemia, COPD, CAD status post CABG, HFrEF, paroxysmal atrial fibrillation on Eliquis, hypertension, B12 deficiency, migraine, anxiety disorder, tobacco use s/p fem fem and bilateral fempop bypasses on 08/15 with new onset fever. Fever Sepsis Hypotension Developed fever of 38 C on 08/16 with elevated WBC >29K, associated nausea Work up: Covid negative, CXR with no acute process, lactate and procal WNL, covid PCR negative, UA with trace leuk esterase, no urine Cx. Blood Cx with NGTD CT abd/pelvis to further determine infectious source Continue Zosyn at this time (WBC currently wnl) Continue antiemetics KUB ordered given nausea: noted constipation, also concerning for ileus versus obstruction General surgery consulted -advancing pt's diet currently Holding IV fluids at this time in this pt with Hx of HFrEF- BP currently stable Ileus Noted on KUB CT abd/pelvis ordered for follow up and to further determine source of infection as noted above General surgery consulted -advancing pt's diet currently Acute Blood Loss Anemia Pt with hgb drop from 15.7-->10.9-->9-->7.5 Transfused 1U of pRBCs by primary team on 08/18 (see below) Asymptomatic No evidence of active bleeding Continue to monitor daily CBC Transfusion Reaction pt developed a fever of 38.9 after being transfused the first unit of blood on 08/18 Pt denied chest pain, SOB at that time Was on NC, notes she does not use oxygen at home. Breath sounds were clear, pt was in no acute distress on exam. Chest xray, cbc, cmp, mag and phos ordered urgently-grossly unremarkable Concern for transfusion related reaction, advised nursing to HOLD further transfusions and notify the blood bank. Will continue to monitor. Atherosclerosis of artery of both lower extremities Current smoker s/p fem fem and bilateral fem pop bypasses on 08/15 Eliquis resumed by vascular surgery (primary), continue statin Wound vac care per primary CHF (congestive heart failure) Echo from 07/08 with EF 40-45%, mild LVH Following with Dr. Borja of [facility] cardiology Holding spironolactone 50mg BID in setting of hypotension, consider re-start of spironolactone at lower dose in AM Continue losartan 100mg daily, Toprol 50mg daily Paroxysmal atrial fibrillation HR stable Continue Toprol for rate control Eliquis resumed by primary team Continue to monitor Hypertension Currently normotensive, though on the lower end Continue losartan, Toprol As above, consider re-start of spironolactone at lower dose in AM CAD (coronary artery disease) Chronic, stable. Continue statin, Imdur, Toprol COPD with emphysema Currently on RA Does not require O2 at baseline but was dropping to 86% in the past CXR without acute abnormality. Nocturnal oximetry study noting 7 desaturations- continue with oxygen at night, will need shelter. Consider pulmonology follow up after discharge Anxiety Severe anxiety Continue home Ativan 1mg PO QID which she confirms she takes 4x/day PCP follow up Hyperlipidemia Continue statin Diet: HH DVT Ppx: Eliquis Code status: FULL Admission and Anticipated Discharge Date Admission Date: August 15, 2023 Subjective Pt seen in the AM. Stated that she was tired and in pain. Noted she has been receiving pain medications. Physical Exam Physical Exam: General: Alert, orientedx3 when stimulated. No acute distress Psych: Appropriate mood and affect Neuro: Drowsy, easily falls asleep without stimulation HEENT: NC/AT CV: RRR, Normal s1, s2. Resp: Breath sounds clear bilaterally, no increased effort of breathing. Abdomen: Soft, nontender, nondistended. Extremities: No edema in lower extremities bilaterally. Results & Data Results & Data Vital Signs (Past 12 Hours) Vital Signs Temp Pulse Pulse Resp BP BP Pulse Ox 08/19/23 12:11 36.5 C 76 18 102/62 98 08/19/23 09:41 78 08/19/23 08:00 08/19/23 07:57 08/19/23 07:40 37.2 C 72 18 141/79 H 93 08/19/23 03:30 36.9 C 92 H 18 127/69 87 L O2 Del Method O2 Del Method O2 Flow Rate O2 Flow Rate 08/19/23 12:11 Room Air 08/19/23 09:41 08/19/23 08:00 Nasal Cannula 2 08/19/23 07:57 Nasal Cannula 2 08/19/23 07:40 Nasal Cannula 2 08/19/23 03:30 Nasal Cannula 2
--- NOTE | 2023-08-19 14:03 | XRay Report ---
KUB HISTORY: f/u ileus COMPARISON: Abdomen and pelvis CT 08/18/2023. FINDINGS: Interval improvement in the gas-filled loops of small bowel within the left side the abdome n. No evidence for bowel obstruction. No renal calculi. No ureteral calculi. No pneumoperitoneum or pneumatosis. Skin yudi within the inguinal regions. A femorofemoral bypass graft is identified. Pr ior cholecystectomy. Suture material again noted within the left upper quadrant. [id number] fec al retention. IMPRESSION: 1. Nonobstructed bowel gas pattern. 2. Postoperative changes as described above. ACT 112: Negative or not required by law. Electronically signed by: Feliberto Lora M.D. 08/19/2023 2:02 PM
[2023-08-19] MEDS: FERROUS SULFATE 325 MG TAB PO SCH (16:19)
[2023-08-19] MEDS: ONDANSETRON INJ 2 MG/ML 2 ML VIAL IV PRN (16:23)
[2023-08-19] MEDS: PRAVASTATIN SOD 40 MG TAB PO SCH (20:10)
[2023-08-19] MEDS: traZODone HCL 50 MG TAB PO SCH (20:10)
[2023-08-20] MEDS: oxyCODONE/ACETAMINOPHEN 5mg/325mg TAB PO PRN ×5 (00:30→23:24)
[2023-08-20] MEDS: LORazepam 1 MG TAB PO PRN ×4 (00:32→23:23)
[2023-08-20 04:19] LABS: Basophils # (auto) 0.01 K/uL (0.00-0.20); Basophils % (auto) 0.2 %; Eosinophils # (auto) 0.15 K/uL (0.00-0.50); Eosinophils % (auto) 2.4 %; Hemoglobin 9.2 g/dl (12.0-16.0); Immature Granulocytes # (auto) 0.01 K/uL (0.01-0.20); Immature Granulocytes % (auto) 0.2 %; Lymphocytes # (auto) 1.18 K/uL (1.20-3.40); Lymphocytes % (auto) 18.8 %; Mean Corpuscular Hemoglobin 32.4 pg (25.0-34.0); Mean Corpuscular Hgb Conc 32.9 g/dL (32.0-36.0); Mean Corpuscular Volume 98.6 fL (80.0-100.0); Mean Platelet Volume 10.9 fL (9.4-12.4); Monocytes # (auto) 0.47 K/uL (0.11-0.59); Monocytes % (auto) 7.5 %; Neutrophils # (auto) 4.44 K/uL (1.40-6.50); Neutrophils % (auto) 70.9 %; Nucleated RBC # (auto) 0.02 K/uL (0.00-0.12); Nucleated RBC % (auto) 0.3 %; Platelet Count 151 K/uL (130-400); RDW Coefficient of Variation 14.6 % (11.5-14.5); RDW Standard Deviation 52.3 fL (36.4-46.3); Red Blood Count 2.84 M/uL (4.20-5.40); White Blood Count 6.26 K/ul (4.8-10.8)
[2023-08-20 04:33] LABS: Albumin Globulin Ratio 1.2 (0.9-2); Albumin Level 2.8 gm/dl (3.4-5.0); BUN Creatinine Ratio 23.8 (10-20); Bilirubin,Total 0.3 mg/dl (0.2-1.0); Calcium 8.9 mg/dl (8.6-10.3); Creatinine Clr Calc Pharmacy 76.6 ml/min; Est GFR (African American) 106.8 ml/min; Est GFR (Non-African American) 92.2 ml/min; Globulin 2.3 gm/dl (2.5-4.0); Magnesium 1.7 mg/dl (1.7-2.4); Phosphorus 3.4 mg/dl (2.5-4.9); Potassium 4.3 mmol/L (3.5-5.1); Total Protein 5.1 gm/dl (6.0-8.3)
[2023-08-20] MEDS: HYDROmorphone INJ 0.5 MG/0.5 ML SYR IV PRN (08:37)
[2023-08-20] MEDS: LOSARTAN POTASSIUM 50 MG TAB PO SCH (08:38)
[2023-08-20] MEDS: NICOTINE 21 MG/24 HR TDSY TD SCH (08:38)
[2023-08-20] MEDS: ISOSORBIDE MONO EXTENDED REL 30 MG TABCR PO SCH (08:38)
[2023-08-20] MEDS: METOPROLOL SUCC 50MG EXT REL TAB PO SCH (08:39)
[2023-08-20] MEDS: GABAPENTIN 800 MG TAB PO SCH ×4 (08:39→20:23)
[2023-08-20] MEDS: CYANOCOBALAMIN (B-12) 500 MCG TABLET PO SCH (08:39)
[2023-08-20] MEDS: APIXABAN 5 MG TABLET PO SCH ×2 (08:39→20:23)
[2023-08-20] MEDS: CHOLECALCIFEROL 1,000 UNITS 25 MCG TAB PO SCH (08:39)
[2023-08-20] MEDS: PANTOprazole 40 MG TAB PO SCH ×2 (08:39→20:23)
[2023-08-20] MEDS: FERROUS SULFATE 325 MG TAB PO SCH ×2 (09:15→16:34)
--- NOTE | 2023-08-20 09:57 | Surgery Progress Note ---
Date of Service August 20, 2023 Assessment & Plan (1) Atherosclerosis of artery of both lower extremities: Plan: Patient is POD#5 from a fem fem and luis fempop bypasses. Pulses remain palpable. Advised pt to consider rehab placement, pt refuses. Is willing to have HH at d/c. Advised pt she will need to have her pain controlled with oral medications only in order to consider discharge. VSS. She remains on oxygen, will order 2-step to eval need for home O2. Hopefully discharge tomorrow. (2) Acute blood loss as cause of postoperative anemia: Plan: Hgb today 9. She is asymptomatic at this time. On iron. Admission and Anticipated Discharge Date Admission Date: August 15, 2023 Subjective 67 yo f POD #5 after L to R fem fem BPG, BL femoral endarterectomies, BL fem- above knee pop prosthetic BPG, seen in f/u today. Pt states still having some pain in BL groins/thighs. Has been ambulating to BR and back. No more nausea/vomiting. Admits fatigue. No other new complaints Review of Systems Review of Systems: All systems reviewed & are unremarkable except as noted in HPI & below Physical Exam Constitutional: WD/WN, vitals as above Respiratory: normal respiratory effort; no respiratory distress Cardiovascular: Rate/Rhythm: regular rate and regular rhythm Vessels: posterior tibial pulses present (palpable bilaterally) Gastrointestinal (Abdomen): Inspection/Auscultation: abdomen normal to inspection; abdomen not distended Percussion/Palpation: abdomen soft; abdomen nontender Musculoskeletal: no cyanosis or clubbing, extremities motor strength 5/5 Skin: + incision (dressings and prevena dressi ng intact) Neurologic: CN's II-XI intact bilaterally and moves all extremities Psychiatric: Orientation: alert and oriented x 3 Results & Data Vital Signs (Past 12 Hours) Vital Signs Temp Pulse Pulse Resp BP Pulse Ox O2 Del Method 08/20/23 07:27 36.8 C 81 19 125/77 95 Nasal Cannula 08/20/23 07:00 76 08/20/23 04:01 36.4 C L 70 18 101/63 92 Nasal Cannula 08/20/23 00:15 66 08/19/23 23:59 08/19/23 23:27 36.6 C 89 16 107/53 L 100 Nasal Cannula O2 Del Method O2 Flow Rate O2 Flow Rate 08/20/23 07:27 2 08/20/23 07:00 08/20/23 04:01 2 08/20/23 00:15 08/19/23 23:59 Nasal Cannula 2 08/19/23 23:27 2
--- NOTE | 2023-08-20 13:56 | Hospitalist Progress Note ---
Date of Service August 20, 2023 Assessment & Plan (1) Postoperative fever: (2) PAD (peripheral artery disease): (3) Acute blood loss as cause of postoperative anemia: (4) Atherosclerosis of artery of both lower extremities: (5) Current smoker: (6) CHF (congestive heart failure): (7) Paroxysmal atrial fibrillation: (8) COPD with emphysema: (9) Hypertension: (10) CAD (coronary artery disease): (11) Anxiety: (12) Hyperlipidemia: Plan This is a 67yo F with a PMHx significant for type 2 diabetes, dyslipidemia, COPD, CAD status post CABG, HFrEF, paroxysmal atrial fibrillation on Eliquis, hypertension, B12 deficiency, migraine, anxiety disorder, tobacco use s/p fem fem and bilateral fempop bypasses on 08/15 with new onset fever. Fever Sepsis Hypotension Developed fever of 38 C on 08/16 with elevated WBC >29K, associated nausea Work up: Covid negative, CXR with no acute process, lactate and procal WNL, covid PCR negative, UA with trace leuk esterase, no urine Cx. Blood Cx with NGTD CT abd/pelvis unremarkable Completed empiric Zosyn course 2 days (WBC currently wnl), continue with PO Augmentin for a total of 7-10 days Continue antiemetics KUB ordered given nausea: noted constipation, also concerning for ileus versus obstruction Repeat KUB 08/19- no obstruction at this time General surgery consulted -advancing pt's diet currently Holding IV fluids at this time in this pt with Hx of HFrEF- BP currently stable Ileus Noted on KUB CT abd/pelvis ordered for follow up and to further determine source of infection as noted above- unremarkable General surgery consulted -advancing pt's diet currently Repeat KUB 08/19- no obstruction at this time Acute Blood Loss Anemia Pt with hgb drop from 15.7-->10.9-->9-->7.5, currently 9.5 Transfused 1U of pRBCs by primary team on 08/18 (see below) Asymptomatic No evidence of active bleeding, pt started on iron by Vascular Continue to monitor daily CBC Transfusion Reaction pt developed a fever of 38.9 after being transfused the first unit of blood on 08/18 Pt denied chest pain, SOB at that time Was on NC, notes she does not use oxygen at home. Breath sounds were clear, pt was in no acute distress on exam. Chest xray, cbc, cmp, mag and phos ordered urgently-grossly unremarkable Concern for transfusion related reaction, advised nursing to HOLD further transfusions and notify the blood bank. Pt started on iron by Vascular, hgb stable Will continue to monitor. Atherosclerosis of artery of both lower extremities Current smoker s/p fem fem and bilateral fem pop bypasses on 08/15 Eliquis resumed by vascular surgery (primary), continue statin Wound vac care per primary CHF (congestive heart failure) Echo from 07/08 with EF 40-45%, mild LVH Following with Dr. Borja of [facility] cardiology Holding spironolactone 50mg BID in setting of hypotension, consider re-start of spironolactone at lower dose in AM Continue losartan 100mg daily, Toprol 50mg daily Paroxysmal atrial fibrillation HR stable Continue Toprol for rate control Eliquis resumed by primary team Continue to monitor Hypertension Currently normotensive, though on the lower end Continue losartan, Toprol As above, consider re-start of spironolactone at lower dose in AM CAD (coronary artery disease) Chronic, stable. Continue statin, Imdur, Toprol COPD with emphysema Does not require O2 at baseline but was dropping to 86% in the past CXR without acute abnormality. Nocturnal oximetry study noting 7 desaturations- continue with oxygen at night, will need group home - needs 2L on discharge Consider pulmonology follow up after discharge Anxiety Severe anxiety Continue home Ativan 1mg PO QID which she confirms she takes 4x/day PCP follow up Hyperlipidemia Continue statin Diet: HH DVT Ppx: Eliquis Code status: FULL Admission and Anticipated Discharge Date Admission Date: August 15, 2023 Subjective Pt seen in the AM. States that she felt "the same" More awake this AM. Otherwise denied acute concerns. Review of Systems Review of Systems: All systems reviewed & are unremarkable except as noted in Subjective Physical Exam Physical Exam: General: Alert, orientedx3. No acute distress Psych: Appropriate mood and affect Neuro: more awake today HEENT: NC/AT CV: RRR, Normal s1, s2. Resp: Breath sounds clear bilaterally, no increased effort of breathing. Abdomen: Soft, nontender, nondistended. Extremities: No edema in lower extremities bilaterally. Results & Data Results & Data Vital Signs (Past 12 Hours) Vital Signs Temp Pulse Pulse Pulse Pulse Pulse Resp 08/20/23 11:43 36.9 C 77 17 08/20/23 10:00 88 82 77 08/20/23 08:00 08/20/23 08:00 08/20/23 07:27 36.8 C 81 19 08/20/23 07:00 76 08/20/23 04:01 36.4 C L 70 18 Resp Resp Resp BP Pulse Ox Pulse Ox Pulse Ox 08/20/23 11:43 94/57 L 95 08/20/23 10:00 20 16 16 91 92 08/20/23 08:00 08/20/23 08:00 08/20/23 07:27 125/77 95 08/20/23 07:00 08/20/23 04:01 101/63 92 Pulse Ox O2 Del Method O2 Del Method O2 Flow Rate O2 Flow Rate O2 Flow Rate O2 Flow Rate 08/20/23 11:43 Nasal Cannula 2 08/20/23 10:00 85 L 2 2 08/20/23 08:00 Nasal Cannula 2 08/20/23 08:00 Room Air 08/20/23 07:27 Nasal Cannula 2 08/20/23 07:00 08/20/23 04:01 Nasal Cannula 2
[2023-08-20] MEDS: traZODone HCL 50 MG TAB PO SCH (20:23)
[2023-08-20] MEDS: PRAVASTATIN SOD 40 MG TAB PO SCH (20:24)
[2023-08-20] MEDS: AMOXICILLIN/CLAVULANATE 875 MG TAB PO SCH (20:40)
[2023-08-21 06:38] LABS: Basophils # (auto) 0.01 K/uL (0.00-0.20); Basophils % (auto) 0.2 %; Eosinophils # (auto) 0.15 K/uL (0.00-0.50); Eosinophils % (auto) 2.3 %; Hematocrit (blood only) 29.3 % (37.0-47.0); Hemoglobin 9.6 g/dl (12.0-16.0); Immature Granulocytes # (auto) 0.02 K/uL (0.01-0.20); Immature Granulocytes % (auto) 0.3 %; Lymphocytes # (auto) 1.33 K/uL (1.20-3.40); Lymphocytes % (auto) 20.3 %; Mean Corpuscular Hemoglobin 32.5 pg (25.0-34.0); Mean Corpuscular Hgb Conc 32.8 g/dL (32.0-36.0); Mean Corpuscular Volume 99.3 fL (80.0-100.0); Mean Platelet Volume 10.6 fL (9.4-12.4); Monocytes # (auto) 0.55 K/uL (0.11-0.59); Monocytes % (auto) 8.4 %; Neutrophils # (auto) 4.49 K/uL (1.40-6.50); Neutrophils % (auto) 68.5 %; Platelet Count 183 K/uL (130-400); RDW Coefficient of Variation 14.5 % (11.5-14.5); RDW Standard Deviation 53.2 fL (36.4-46.3); Red Blood Count 2.95 M/uL (4.20-5.40); White Blood Count 6.55 K/ul (4.8-10.8)
[2023-08-21 07:04] LABS: Albumin Globulin Ratio 1.3 (0.9-2); BUN Creatinine Ratio 28.9 (10-20); Bilirubin,Total 0.3 mg/dl (0.2-1.0); Calcium 9.1 mg/dl (8.6-10.3); Creatinine Clr Calc Pharmacy 106.6 ml/min; Est GFR (African American) 119.3 ml/min; Globulin 2.4 gm/dl (2.5-4.0); Magnesium 1.6 mg/dl (1.7-2.4); Phosphorus 3.2 mg/dl (2.5-4.9); Potassium 4.1 mmol/L (3.5-5.1); Total Protein 5.4 gm/dl (6.0-8.3)
[2023-08-21] MEDS ORDERED: HEPARIN SOD (PORCINE) 1000 UNIT/ML ONE (07:23)
[2023-08-21] MEDS: FERROUS SULFATE 325 MG TAB PO SCH (07:53)
[2023-08-21] MEDS: oxyCODONE/ACETAMINOPHEN 5mg/325mg TAB PO PRN (07:53)
[2023-08-21] MEDS: AMOXICILLIN/CLAVULANATE 875 MG TAB PO SCH (07:54)
[2023-08-21] MEDS: LOSARTAN POTASSIUM 50 MG TAB PO SCH (07:55)
[2023-08-21] MEDS: CHOLECALCIFEROL 1,000 UNITS 25 MCG TAB PO SCH (07:55)
[2023-08-21] MEDS: APIXABAN 5 MG TABLET PO SCH (07:55)
[2023-08-21] MEDS: GABAPENTIN 800 MG TAB PO SCH (07:55)
[2023-08-21] MEDS: PANTOprazole 40 MG TAB PO SCH (07:56)
[2023-08-21] MEDS: METOPROLOL SUCC 50MG EXT REL TAB PO SCH (07:56)
[2023-08-21] MEDS: ISOSORBIDE MONO EXTENDED REL 30 MG TABCR PO SCH (07:56)
[2023-08-21] MEDS: CYANOCOBALAMIN (B-12) 500 MCG TABLET PO SCH (07:56)
[2023-08-21] MEDS: NICOTINE 21 MG/24 HR TDSY TD SCH (07:57)
[2023-08-21] MEDS: LORazepam 1 MG TAB PO PRN (08:01)
[2023-08-21] MEDS ORDERED: MAGNESIUM OXIDE 400 MG TAB PO ONE (08:35)
--- NOTE | 2023-08-21 10:53 | Surgery Progress Note ---
Date of Service August 21, 2023 Assessment & Plan (1) Atherosclerosis of artery of both lower extremities: Plan: Patient is POD#6 from a fem fem and luis fempop bypasses. Pulses remain palpable. Pt requires 2L O2 continuously, rx written. Ok for d/c home with HH today. (2) Acute blood loss as cause of postoperative anemia: Plan: Hgb stable She is asymptomatic at this time. On iron. Admission and Anticipated Discharge Date Admission Date: August 15, 2023 Subjective 67 yo f POD #6 after fem fem BPG and BLE fem-pop BPG, seen in f/u today. Pt admits fatigue and incisional pain, controlled with medication. No other new complaints. Review of Systems Review of Systems: All systems reviewed & are unremarkable except as noted in HPI & below Physical Exam Constitutional: WD/WN, vitals as above Respiratory: normal respiratory effort; no respiratory distress Cardiovascular: Rate/Rhythm: regular rate and regular rhythm Vessels: posterior tibial pulses present (palpable bilaterally) Gastrointestinal (Abdomen): Inspection/Auscultation: abdomen normal to inspection; abdomen not distended Percussion/Palpation: abdomen soft; abdomen nontender Musculoskeletal: no cyanosis or clubbing, extremities motor strength 5/5 Skin: + incision (dressings and prevena dressi ng intact) Neurologic: CN's II-XI intact bilaterally and moves all extremities Psychiatric: Orientation: alert and oriented x 3 Results & Data Vital Signs (Past 12 Hours) Vital Signs Temp Pulse Pulse Pulse Pulse Resp BP 08/21/23 10:26 36.7 C 83 71 104 H 17 101/64 08/21/23 09:35 08/21/23 09:35 70 08/21/23 07:19 36.7 C 71 17 101/64 08/21/23 03:30 36.5 C 77 18 08/20/23 23:39 85 BP Pulse Ox O2 Del Method O2 Flow Rate 08/21/23 10:26 138/76 99 08/21/23 09:35 Nasal CPAP 2 08/21/23 09:35 08/21/23 07:19 99 Nasal Cannula 2 08/21/23 03:30 138/76 94 Nasal Cannula 2 08/20/23 23:39
--- NOTE | 2023-08-21 10:55 | Discharge Summary ---
Date of Service August 21, 2023 Admission HPI Per Admitting Provider Chief Complaint rm#[id number] here for new pt consult aortoiliac disease with claudication right worse than left. Rest pain is present Reason for Consultation Bilateral leg claudication History of Present Illness I had the pleasure of seeing Sierra today for evaluation of her lower extremities. As you know she is a 67-year-old female who has severe claudication of her right lower extremity and moderate claudication of her left lower extremity. This has been going on for some time and now has gotten progressively worse over the last 6 to 8 months. She denies rest pain or ulcerations of the lower extremities. She has had a coronary bypass graft in the past x2. She is hypertensive and has a history of carotid disease. She is a smoker of 55 years of 1 pack a day. He says recently she has decreased the amount that she smokes during the day. Her heart history also shows ischemic cardiomyopathy with an ejection fraction of 40 to 45% and paroxysmal atrial fibrillation. He is on anticoagulation for her arrhythmia. He claims a CT angiogram done recently showed occlusion in her pelvis and both lower extremities. Review of Systems 10 systems reviewed. Positive findings include her irregular heartbeat. Occasional cough. Nausea heartburn loss of appetite and diarrhea. She also complains of incontinence. She does have severe anxiety. Physical Exam Vitals & Measurements Input and Output - Last 24 hours (Last 8 hours) No I/O Data Found: Physical exam she is awake alert and oriented x3. She is in no apparent distress. Her blood pressure is 130/68. Radials and carotids are +2 bilaterally. I cannot appreciate carotid bruits on either carotid. Lungs are clear. Heart had a regular rhythm. Abdominal exam is benign. No pulsatile masses are appreciated. Femoral pulses are +2 on the left. The pulses below the groin on the left and nonpalpable. Right lower extremity showed all pulses nonpalpable. Capillary refill is markedly decreased in both lower extremities. There is no evidence of ulcerations of either foot. Neurologic exam grossly intact motor and sensory function. Diagnostic Results CT angiogram shows bilateral superficial femoral artery occlusions as well as a right external iliac artery occlusion. Assessment/Plan Aortoiliac occlusive disease Atherosclerosis of autologous vein bypass graft(s) of the extremities with intermittent claudication, bilateral legs At this point we recommended she obtain a cardiac clearance prior to surgery. We recommended a femoral to femoral bypass and bilateral femoral to popliteal bypasses. At this point she understood the risk options and benefits of this procedure. She elected to go ahead with the planned procedure. We will have her seen by her lapidary apprentice for preoperative clearance prior to undergoing surgery. Thank you very much for letting us participate in the care of this patient. Sincerely, Gaurav Riley MD Problem List/Past Medical History Ongoing Aortoiliac occlusive disease (atherosclerosis) Tobacco user Medications Home albuterol(albuterol CFC free 90 mcg/inh MDI), 2 puff, inhaled, qid, PRN apixaban(Eliquis 5 mg oral tablet), 5 mg= 1 tab, PO, bid cyanocobalamin(B-12 1000 mcg oral tablet), 1000 mcg= 1 tab, PO, Daily gabapentin(gabapentin 800 mg oral tablet), 800 mg= 1 tab, PO, qid iron dextran(iron dextran 50 mg/mL injectable solution), See Instructions isosorbide mononitrate(isosorbide mononitrate 30 mg oral tablet, extended release), 30 mg= 1 tab, PO, qAM LORazepam(LORazepam 1 mg oral tablet), 1 mg= 1 tab, PO, qid, PRN losartan(losartan 100 mg oral tablet), 100 mg= 1 tab, PO, Daily metoprolol(Metoprolol Succinate ER 50 mg oral tablet, extended release), 50 mg= 1 tab, PO, Daily nitroglycerin(nitroglycerin 0.4 mg sublingual tablet), 0.4 mg= 1 tab, SL, q5min, PRN omeprazole(omeprazole 40 mg oral delayed release capsule), 40 mg= 1 cap, PO, bid pravastatin(pravastatin 40 mg oral tablet), 40 mg= 1 tab, PO, Daily predniSONE(predniSONE 50 mg oral tablet), See Instructions spironolactone(spironolactone 50 mg oral tablet), 50 mg= 1 tab, PO, bid SUMAtriptan(SUMAtriptan 25 mg oral tablet), 25 mg= 1 tab, PO, ONCE, PRN traZODone(traZODone 150 mg oral tablet), 150 mg= 1 tab, PO, qhs Allergies Compazine Anaphylaxis IVP dye Rash Latex Rash Social History Smoking Status Current every day heavy smoker Signature Line Electronic Signature on File Nigel Riley MD Author Signature Dt/Tm: 07/19/2023 07:43 AM Chemist Instrumentation Eleazar Ocasio [facility] [place] [address], [address] [place] [address] EJS Result Type: .Outpt Ltr Date of Service: July 19, 2023 07:32 EDT Authorization Status: Final Subject: Consult Note Author or Import Date: MD Riley Eugene J on July 19, 2023 07:43 EDT Verified By: MD Riley Eugene J on July 19, 2023 07:43 EDT Encounter info: [id number], [place] [address], Clinic, 07/17/2023 - 07/17/2023 Admission Exam Per Admitting Provider Physical exam she is awake alert and oriented x3. She is in no apparent distress. Her blood pressure is 130/68. Radials and carotids are +2 bilaterally. I cannot appreciate carotid bruits on either carotid. Lungs are clear. Heart had a regular rhythm. Abdominal exam is benign. No pulsatile masses are appreciated. Femoral pulses are +2 on the left. The pulses below the groin on the left and nonpalpable. Right lower extremity showed all pulses nonpalpable. Capillary refill is markedly decreased in both lower extremities. There is no evidence of ulcerations of either foot. Neurologic exam grossly intact motor and sensory function. Principal Diagnosis 1. s/p L to R fem fem BPG, BL common femoral endarterectomies with L bovine patch angioplasty, BL fem-above knee pop BPG 2. Aortoiliac occlusive disease 3. Severe PAD 4. Post op anemia 5. COPD with hypoxia Discharge Exam Constitutional WD/WN, vitals as above Respiratory normal respiratory effort; no respiratory distress Cardiovascular Rate/Rhythm: regular rate and regular rhythm Vessels: posterior tibial pulses present (palpable bilaterally) Gastrointestinal (Abdomen) Inspection/Auscultation: abdomen normal to inspection; abdomen not distended Percussion/Palpation: abdomen soft; abdomen nontender Musculoskeletal no cyanosis or clubbing, extremities motor strength 5/5 Skin + incision (dressings and prevena dressing intact) Neurologic CN's II-XI intact bilaterally and moves all extremities Psychiatric Orientation: alert and oriented x 3 Discharge Data Allergies Allergy/AdvReac Type Severity Reaction Status Date / Time benzyl alcohol Allergy Severe Anaphylaxis Verified 08/15/23 05:44 Iodinated Contrast Media Allergy Severe Rash - IVP Verified 08/15/23 05:44 dye lisinopril Allergy Severe chills,sera Verified 08/15/23 05:44 rs prochlorperazine Allergy Severe Anaphylaxis Verified 08/15/23 05:44 saccharin Allergy Severe Anaphylaxis Verified 08/15/23 05:44 simvastatin Allergy Intermediate itching Verified 08/15/23 05:44 furosemide Allergy Mild rash Verified 08/15/23 05:44 promethazine Allergy Mild rash Verified 08/15/23 05:44 Consultations 08/15/23 15:52 Consult [employer] Crm Developer Routine 08/17/23 10:05 Consult Hospitalist Routine 08/17/23 14:15 Consult General Surgery Routine Procedures Performed Operation Date: 08/15/23 08:00 Actual Procedures p Femoral to Femoral Bypass, Bilateral Femoral to Popliteal Prosthetic Above Knee, Bilateral Common Femoral Artery Endarterectomy, Bovine Patch Left Common Femoral Artery - Nigel Riley MD s Left Lower Extremity Angiogram - Nigel Riley MD Ordered Studies 08/15/23 07:17 EV angio LE RT Routine 08/18/23 14:23 CT abd pelvis wo con Urgent Hospital Course (1) Atherosclerosis of artery of both lower extremities: Patient is POD#6 from a fem fem and luis fempop bypasses. Pulses remain palpable. Pt requires 2L O2 continuously, rx written. Ok for d/c home with HH today. (2) Acute blood loss as cause of postoperative anemia: Hgb stable She is asymptomatic at this time. On iron. Total Time Total Time Spent Total Time Spent (In Minutes): 0 Discharge Plan Discharge Items Patient Disposition: Home - Home Health Services Reason For Visit: Right Iliac Occlusion and Bilateral Superficial Fe Discharge Diagnosis: 1. s/p Left to Right femoral to femoral artery bypass graft, Bilateral common femoral endarterectomies with Left bovine patch, and bilateral femoral to above knee popliteal artery bypass grafts 2. Aortoiliac occlusive disease 3. Severe PAD 4. Post op anemia 5. COPD with hypoxia Condition on Discharge: Good Activity: Per Instructions section Lifting: No more than 10 pounds Non-emergency contact: Primary Care Provider and Surgeon Call non-emergency contact if: your pain is not controlled, your pain is concerning for you, you have a fever, your wound has increased redness and your wound has increased drainage Follow-up/Referrals: Nigel Riley MD [Physician] - (Follow up with Dr Riley or Nasra Kowalski PA-C, in 2 weeks.) Akbar Daniel DO [Primary Care Provider] - (Date & Time 08/24/2023 11:00 AM Provider Diana Hardin MD Department Family Practice [facility] ) Diet: Heart Healthy Addtl Attending Provider Instructions: ACTIVITY RECOMMENDATIONS: See Above SPECIAL CARE INSTRUCTIONS: Call your doctor if: * Temperature above 101 degrees * Pain not relieved by pain medicine ordered * There is increased drainage or redness from any incision * You have any unanswered questions or concerns. When groin dressings loosen or batteries , you may remove entire unit and dispose of in the garbage. Call Dr Riley's office if needed Pending Studies at Discharge: No Stand-Alone Forms: My [facility] [employer], Smoking Cessation Medications and DC Order Prescriptions: New ferrous sulfate 325 mg (65 mg iron) Tablet,Delayed Release (Dr/Ec) 325 mg PO BIDM Qty: 60 2RF docusate sodium [Colace] 100 mg capsule 100 mg PO BID Qty: 60 0RF oxycodone-acetaminophen [Percocet] 5-325 mg tablet 1 tab PO Q6H PRN (Reason: pain) Qty: 30 0RF Continued losartan 100 mg tablet 100 mg PO DAILY nicotine 21 mg/24 hr patch 24 hour 1 patch transdermal DAILY spironolactone [Aldactone] 50 mg tablet 50 mg PO BID Eliquis 5 mg tablet 5 mg PO BID isosorbide mononitrate 30 mg tablet extended release 24 hr 30 mg PO QAM gabapentin 800 mg tablet 800 mg PO QID omeprazole 40 mg capsule,delayed release(DR/EC) 40 mg PO BID lorazepam 1 mg tablet 1 mg PO QID pravastatin 40 mg tablet 40 mg PO HS sumatriptan succinate 25 mg tablet 25 mg PO UD PRN (Reason: Headache) albuterol sulfate 90 mcg/actuation HFA aerosol inhaler 2 puff INHALATION Q4H PRN (Reason: Wheezing) nitroglycerin 0.4 mg Tablet, Sublingual 0.4 mg buccal UD PRN (Reason: Chest Pain) cyanocobalamin (vitamin B-12) [Vitamin B-12] 1,000 mcg Tablet 1,000 mcg PO QAM trazodone 150 mg Tablet 150 mg PO HS Rx Instructions: only takes 50mg HS in hospital setting metoprolol succinate 50 mg tablet extended release 24 hr 50 mg PO DAILY Discharge Orders: Discharge Order (Routine); Ordered 08/21/23 Ordered By: Nasra Kowalski Admission Data Admit Date/Time: 08/15/23 07:36 Attending Provider: Nigel Riley Admit Provider: Nigel Riley Primary Care Provider: Akbar Daniel Other Providers: Samuel Sorto; Dajuan Tan; Sravan Negron; Jim Mirza; Torrey Welch; Aide Scott; Saud Edmondson; Carolina Griffin; Farzana Hanna; Ernesto Grey; Rinku Chavez; Shannan Loo; Mohit Velasco; Kaelyn Sandoval; Irma Chavez I.; Sari Cardona; Raulito Majano; Rosaura Garvin; Umu Preciado; Jeanette Victoria; Brian Walls; Kenroy Ortiz; Efra Worthy; Jaki Kirk; Velasquez Negron; Jayda Bowles; Gilda Betts; Alexa Toure; Isaac Inman; Camilla Tidwell; Ruma Cramer; Analilia Jorge; Nancy Miller I.; Shaggy Pérez; Roberto Artis; Marv Jones; Carolin Bhakta; Brian Morton; Davidson Us; Prince Ramirez; Torri Alcaraz; Diamante Zurita Other Interventions: Discharge Summary Assessment (RN) Last Done: 08/21/23 10:26
--- NOTE | 2023-08-21 13:26 | Hospitalist Progress Note ---
Date of Service August 21, 2023 Assessment & Plan (1) Postoperative fever: (2) PAD (peripheral artery disease): (3) Acute blood loss as cause of postoperative anemia: (4) Atherosclerosis of artery of both lower extremities: (5) Current smoker: (6) CHF (congestive heart failure): (7) Paroxysmal atrial fibrillation: (8) COPD with emphysema: (9) Hypertension: (10) CAD (coronary artery disease): (11) Anxiety: (12) Hyperlipidemia: Plan This is a 67yo F with a PMHx significant for type 2 diabetes, dyslipidemia, COPD, CAD status post CABG, HFrEF, paroxysmal atrial fibrillation on Eliquis, hypertension, B12 deficiency, migraine, anxiety disorder, tobacco use s/p fem fem and bilateral fempop bypasses on 08/15 with new onset fever. Fever Sepsis Hypotension Developed fever of 38 C on 08/16 with elevated WBC >29K, associated nausea Work up: Covid negative, CXR with no acute process, lactate and procal WNL, covid PCR negative, UA with trace leuk esterase, no urine Cx. Blood Cx with NGTD CT abd/pelvis unremarkable Completed empiric Zosyn course 2 days (WBC currently wnl), continue with PO Augmentin for a total of 7-10 days of treatment Continue antiemetics KUB ordered given nausea: noted constipation, also concerning for ileus versus obstruction Repeat KUB 08/19- no obstruction at this time General surgery consulted -diet advanced Ileus Noted on KUB CT abd/pelvis ordered for follow up and to further determine source of infection as noted above- unremarkable General surgery consulted -diet advanced Repeat KUB 08/19- no obstruction at this time Acute Blood Loss Anemia Pt with hgb drop from 15.7-->10.9-->9-->7.5, currently 9.6 Transfused 1U of pRBCs by primary team on 08/18 (see below) Asymptomatic No evidence of active bleeding, pt started on iron by Vascular Continue to monitor CBC after discharge Transfusion Reaction pt developed a fever of 38.9 after being transfused the first unit of blood on 08/18 Pt denied chest pain, SOB at that time Was on NC, notes she does not use oxygen at home. Breath sounds were clear, pt was in no acute distress on exam. Chest xray, cbc, cmp, mag and phos ordered urgently-grossly unremarkable Concern for transfusion related reaction, advised nursing to HOLD further transfusions and notify the blood bank. Pt started on iron by Vascular, hgb stable No further complications noted Atherosclerosis of artery of both lower extremities Current smoker s/p fem fem and bilateral fem pop bypasses on 08/15 Eliquis resumed by vascular surgery (primary), continue statin Wound vac care per primary CHF (congestive heart failure) Echo from 07/08 with EF 40-45%, mild LVH Following with [facility]. Borja of [facility] cardiology Spironolactone 50mg BID held in setting of hypotension, re-started on discharge Continue losartan 100mg daily, Toprol 50mg daily Paroxysmal atrial fibrillation HR stable Continue Toprol for rate control Eliquis resumed by primary team Continue to monitor Hypertension Currently normotensive, though on the lower end Continue losartan, Toprol Spironolactone restarted on discharge CAD (coronary artery disease) Chronic, stable. Continue statin, Imdur, Toprol COPD with emphysema Does not require O2 at baseline but was dropping to 86% in the past CXR without acute abnormality. Nocturnal oximetry study noting 7 desaturations- continue with oxygen at night, will need correction - given script for 2L on discharge Consider pulmonology follow up after discharge Anxiety Severe anxiety Continue home Ativan 1mg PO QID which she confirms she takes 4x/day PCP follow up Hyperlipidemia Continue statin Admission and Anticipated Discharge Date Admission Date: August 15, 2023 Subjective Pt seen in the AM before discharge. Was laying in bed, stated that she would like to get up to use the bathroom. Otherwise , denied acute concerns. Review of Systems Review of Systems: All systems reviewed & are unremarkable except as noted in Subjective Physical Exam Physical Exam: General: Alert, oriented. No acute distress Psych: Appropriate mood and affect Neuro: more awake today HEENT: NC/AT CV: RRR, Normal s1, s2. Resp: Breath sounds clear bilaterally, no increased effort of breathing. Abdomen: Soft, nontender, nondistended. Extremities: No edema in lower extremities bilaterally. Results & Data Results & Data Vital Signs (Past 12 Hours) Vital Signs Temp Pulse Pulse Pulse Pulse Resp BP 08/21/23 10:26 36.7 C 83 71 104 H 17 101/64 08/21/23 09:35 08/21/23 09:35 70 08/21/23 07:19 36.7 C 71 17 101/64 08/21/23 03:30 36.5 C 77 18 BP Pulse Ox O2 Del Method O2 Flow Rate 08/21/23 10:26 138/76 99 08/21/23 09:35 Nasal CPAP 2 08/21/23 09:35 08/21/23 07:19 99 Nasal Cannula 2 08/21/23 03:30 138/76 94 Nasal Cannula 2
--- NOTE | 2023-08-24 07:36 | Coding Query ---
Your help is needed for correct coding of this account; please clarify if the patients Post-operative Ileus was: ( ) expected out of the surgery ( x ) unexpected complication from the surgery ( ) other please specify Thank you Joann BARRERA
== END 2023-08-21 11:25 | disposition home health service (06) | DRG 253 ==
LOC: ASU 05:25 → 1E 07:36 → 3N 08-16 21:09 → 4W 08-17 17:57

== ENCOUNTER 2024-08-01 13:04 | Observation (INO) ==
[2024-08-01 14:13] LABS: Hemoglobin 12.9 g/dl (12.0-16.0); Mean Corpuscular Hemoglobin 35.7 pg (25.0-34.0); Mean Corpuscular Hgb Conc 33.1 g/dL (32.0-36.0); Mean Platelet Volume 10.3 fL (9.4-12.4); Platelet Count 182 K/uL (130-400); RDW Coefficient of Variation 14.4 % (11.5-14.5); RDW Standard Deviation 57.8 fL (36.4-46.3); Red Blood Count 3.61 M/uL (4.20-5.40); White Blood Count 23.38 K/ul (4.8-10.8)
[2024-08-01 14:19] LABS: Albumin Level 3.2 gm/dl (3.4-5.0); BUN Creatinine Ratio 17.8 (10-20); Bilirubin Direct 0.1 mg/dl (0-0.2); Bilirubin,Total 0.3 mg/dl (0.2-1.0); Creatinine Clr Calc Pharmacy 22.3 ml/min; Potassium 3.4 mmol/L (3.5-5.1); Total Protein 5.9 gm/dl (6.0-8.3)
[2024-08-01 14:34] LABS: Basophils # (auto) 0.04 K/uL (0.00-0.20); Basophils % (auto) 0.2 %; Eosinophils # (auto) 0.01 K/uL (0.00-0.50); Immature Granulocytes % (auto) 0.4 %; Lymphocytes # (auto) 0.97 K/uL (1.20-3.40); Lymphocytes % (auto) 4.1 %; Monocytes % (auto) 7.7 %; Neutrophils # (auto) 20.46 K/uL (1.40-6.50); Neutrophils % (auto) 87.6 %
[2024-08-01] MEDS: SODIUM CHLORIDE 0.9% 1,000 ML IV ONE (14:51)
--- NOTE | 2024-08-01 14:51 | CT Scan Report ---
CT OF THE HEAD WITHOUT CONTRAST CLINICAL HISTORY: neuro deficit, acute stroke suspected COMPARISON STUDY: Head CT December 14, 2017. MRI of the brain March 01, 2018. CT DOSE: 1250.21 mGy.cm TECHNIQUE: Helical axial images of the head were obtained without IV contrast. Automated exposure con trol was utilized for the study. A dose lowering technique was utilized adhering to the principles o f ALARA. FINDINGS: No acute intracranial hemorrhage, midline shift or mass effect is present. The ventricular system is unremarkable. The basal cisterns are patent. No extra-axial collections are present. There are no findings to suggest acute dural sinus thrombosis or acute territorial infarct. No significant calvarial abnormalities are present. White matter hypodensities favor small vessel disease. The left mastoid air cells are opacified. There is also fluid within the left middle ear. There is a small riya unt of fluid within the right mastoid air cells. IMPRESSION: 1. No acute intracranial findings. 2. Opacified left mastoid air cells and fluid within the left middle ear. The findings may reflect ot omastoiditis. Small amount of fluid within the right mastoid air cells. ACT 112: Negative or not required by law. Electronically signed by: Jose Dias M.D. 08/01/2024 2:50 PM
--- NOTE | 2024-08-01 14:53 | XRay Report ---
XR chest 1V portable HISTORY: 68 years-old Female injury alert acute chest trauma COMPARISON: August 18, 2023 TECHNIQUE: AP view of the chest FINDINGS: Heart size is enlarged. Median sternotomy. Pulmonary vascular congestion with chronic interstitial co arsening. No pneumothorax or large pleural effusion. Bones appear grossly intact. Right upper quadran t surgical clips. Chronic deformity of the distal left clavicle. IMPRESSION: Cardiomegaly with pulmonary vascular congestion. ACT 112: Negative or not required by law. The above report was generated using voice recognition software. It may contain grammatical, syntax o r spelling errors. Electronically signed by: Jaime Osullivan M.D. 08/01/2024 2:51 PM
[2024-08-01 14:54] LABS: Appearance Urine Cloudy (Clear); Bacteria Urine Automated 1+ (None Seen); Bilirubin Urine Negative (Negative); Blood Urine Negative (Negative); Color Urine Yellow; Epithelial Cell Urine Auto >20 /hpf (0-2); Glucose Urine UA Negative (Negative); Hyaline Casts Urine Present /lpf (None Presnt); Ketones Urine Negative (Negative); Leukocyte Esterase Urine 1+ (Negative); Nitrite Urine Negative (Negative); Protein Urine 1+ (Negative); RBC Urine Automated 0-2 /hpf (0-2); Specific Gravity Urine 1.019 (1.000-1.030); Urobilinogen Urine Negative (Negative); pH Urine 5.5 (4.5-7.5)
--- NOTE | 2024-08-01 14:58 | Emergency Department Note ---
Impression & Plan HAYDEN (acute kidney injury) ED Provider Note NAME: TRUMAN DORADO AGE: 68 SEX: F : 1955 ARRIVES VIA: Walk-In INFORMANT: Patient, ED PROVIDER(S): Kimberly Rodriguez MD CHIEF COMPLAINT: Weakness HPI: This is a 68-year-old female presenting for weakness. Patient states that she felt very weak this morning and could not get up off the ground. She notes that she slipped out of her bed. Patient is a NyQuil daily for sleep. Otherwise family is concerned that she has been weaker, having shakes and appears somewhat altered. She is alert and oriented but does was making nonsense statements earlier this morning. Otherwise no fevers, chills, nausea or vomiting. Denies any diarrhea. Denies any alcohol use. ROS: See above HPI for pertinent positives & negatives. A total of 10 systems reviewed and were otherwise negative. PAST MEDICAL HISTORY: See Below PAST SURGICAL HISTORY: See Below FAMILY HISTORY: See Below SOCIAL HISTORY: See Below HOME MEDICATIONS: See Below ALLERGIES: See Below VITALS: See Below PHYSICAL EXAMINATION: General: resting comfortably in no acute distress Head: Normocephalic and atraumatic Eyes: Normal inspection, extraocular muscles intact Ear, nose, throat: Normal external exam Neck: Normal range of motion Respiratory: lungs clear to auscultation bilaterally Cardiovascular: Regular rate/rhythm, no murmur GI: soft, nontender, no guarding or rebound Extremities: nontender, moves all extremities Neuro: The patient awake and alert, appropriately conversive, no focal deficits, symmetric faces, tremulous, CN II through XII intact Skin: Warm, dry, and intact MEDICAL DECISION MAKING: This is a 68-year-old female presenting for weakness. Patient was chronically unwell. She appears weak without clear neurologic abnormality. Will do screening CT to help elucidate family reported altered mental status and weakness. -Bloodwork is reviewed showing a leukocytosis 23. Creatinine is 2.13 with a baseline of 0.5. No sign of anion gap or transaminitis. -Chest Xray independently interpreted by me showing cardiomegaly with pulm vascular congestion, no pneumothorax or focal opacity -CT of the head reveals no acute intracranial process patient does have otomastoiditis. Clinically no signs of mastoiditis that she has nontender mastoid processes bilaterally -Patient required mission for her leukocytosis and HAYDEN at this time as well as old medical status. Discussed Dr. Jones for admission Differential diagnosis: Stroke, intracranial hemorrhage, intoxication, UTI, dehydration ER treatment provided: See below Independent History obtained from: [facility] interpreted by me: ECG: ECG independently interpreted by me with [sinus rhythm, left axis deviation, rate 85 normal IL, normal QRS, normal QTc, no ST segment elevations consistent with STEMI criteria, T wave inversions in the lateral leads Cardiac Monitoring: An order was placed for continuous cardiac monitoring. The monitor shows a rate of 72 with sinus rhythm. Laboratory studies: As stated above and show below. Imaging studies: See below. Past Med/Surg History Problem List (Updated 08/02/24 @ 19:27 by Kimberly Rodriguez MD) Colitis Chronic HFrEF (heart failure with reduced ejection fraction) EF 40-45% per 09/2022 ECHO HAYDEN (acute kidney injury) (Acute) Generalized weakness Paroxysmal atrial fibrillation Atherosclerosis of artery of both lower extremities Current smoker COPD with emphysema Polycythemia Prediabetes pt denies PAD (peripheral artery disease) Myocardial Infarction unsure of date - 2009 or earlier. Hyperlipidemia Hypertension GERD (gastroesophageal reflux disease) Well controlled and stable Anxiety CAD (coronary artery disease) CABG x 4 2002, CABG x 3 2009 Patent PONCE to LAD, vein graft to diagonal and obtuse marginal, and collaterals from RCA by catheterization 01/2017; No new blockages/ischemia seen on stress test 9 Anemia s/p iron infusions- last iron infusion June 2023 Medical History (Updated 08/02/24 @ 19:27 by Kimberly Rodriguez MD) CHF (congestive heart failure) EF 40-45% per 09/2022 ECHO Closed fracture of left proximal humerus Ileus, postoperative Postoperative fever Acute blood loss as cause of postoperative anemia Atrial fibrillation On Eliquis Ischemic cardiomyopathy History of panic attacks worse with large groups History of stomach ulcers 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, twitching and left eye tearing Peripheral neuropathy Migraine Surgical History History of coronary artery bypass graft x4 vessel bypass (~2001/2002) [facility] x3 vessel bypass (~2009) Dora Wilde follows with Dr Borja ([place]) Family history of reaction to anesthesia DAUGHTER>SLOW TO WAKE UP History of esophagogastroduodenoscopy (EGD) History of colonoscopy H/O abdominal surgery 25-30 YEARS AGO>PART OF STOMACH/COLON/PANCREAS REMOVED D/T STOMACH ULCER History of tooth extraction History of cataract surgery RT/LEFT History of cardiac cath MULTIPLE CATH'S DONE>NO SENTS ([facility]) most recently done in the last five years ([id number]) done at [facility]. no stents. History of total hysterectomy History of cholecystectomy History of appendectomy Family History Daughter Family hx of colon cancer Family history of diabetes mellitus FHx: thyroid cancer Sister Family history of diabetes mellitus Brother FHx: kidney cancer Family history of diabetes mellitus FHx: pancreatic cancer Social History Smoking Status: Current every day smoker Tobacco Type: Cigarettes Cigarettes Per Day: 1ppd; Second Hand Exposure: Yes; Do You Dip or Chew Tobacco: No; Hx Alcohol Use: No Hx Substance Use: No Preferred Language: Japanese Communication Ability: Effective Founder President And Ceo Required: No Beliefs That Will Affect Care: None Current Living Situation: Spouse Current Living Situation Comment: 2 story home, only lives on 1 floor Feels Safe at Home: Yes Assistive Devices: Walker Allergies Allergies Allergy/AdvReac Type Severity Reaction Status Date / Time benzyl alcohol Allergy Severe Anaphylaxis Verified 08/15/23 05:44 Iodinated Contrast Media Allergy Severe Rash - IVP Verified 08/15/23 05:44 dye lisinopril Allergy Severe chills,sera Verified 08/15/23 05:44 rs prochlorperazine Allergy Severe Anaphylaxis Verified 08/15/23 05:44 saccharin Allergy Severe Anaphylaxis Verified 08/15/23 05:44 simvastatin Allergy Intermediate itching Verified 08/15/23 05:44 furosemide Allergy Mild rash Verified 08/15/23 05:44 promethazine Allergy Mild rash Verified 08/15/23 05:44 Home Meds Home Medications Medication Instructions Recorded Confirmed gabapentin 800 mg tablet 800 mg PO QID 01/02/22 08/01/24 isosorbide mononitrate 30 mg 30 mg PO QAM 01/02/22 08/01/24 tablet,extended release 24 hr lorazepam 1 mg tablet 1 mg PO QID severe anxiety 01/02/22 08/01/24 omeprazole 40 mg capsule,delayed 40 mg PO BID 01/02/22 08/01/24 release albuterol sulfate 90 mcg/actuation 2 puff inhalation Q4H PRN Wheezing 01/03/22 08/01/24 aerosol inhaler pravastatin 40 mg tablet 40 mg PO HS 01/03/22 08/01/24 nitroglycerin 0.4 mg sublingual 0.4 mg buccal UD PRN Chest Pain 02/27/22 08/01/24 tablet apixaban 5 mg tablet (Eliquis) 5 mg PO BID 11/28/22 08/01/24 losartan 100 mg tablet 100 mg PO HS 11/28/22 08/01/24 spironolactone 50 mg tablet 50 mg PO BID 11/28/22 08/01/24 (Aldactone) metoprolol succinate 50 mg 50 mg PO DAILY 07/24/23 08/01/24 tablet,extended release 24 hr trazodone 150 mg tablet 150 mg PO HS 07/24/23 08/01/24 calcitonin (salmon) 200 See Rx Instructions .Route .COMPLEX 08/01/24 08/01/24 unit/actuation nasal spray Results & Data (ED) Vital Signs Vital Signs - 24 hr 08/01/24 13:07 08/01/24 13:49 08/01/24 13:53 Temperature 36.6 C Temperature Source Temporal Artery Scan Oral Pulse Rate 117 H 85 Pulse Rate [Apical] 83 Pulse Rhythm [Apical] Regular Pulse Strength [Apical] Normal Respiratory Rate 20 20 Respiratory Effort / Characteristics Non-Labored Non-Labored Spontaneous Respiratory Depth Normal Normal Respiratory Pattern Regular Blood Pressure 100/65 Blood Pressure [Left Arm] 115/72 Blood Pressure Mean 76 Blood Pressure Mean [Left Arm] 86 Blood Pressure Position [Left Arm] Lying Pulse Oximetry 93 98 Oxygen Delivery Method Room Air Room Air Sepsis Recent Fever Within 48 Hours No Sepsis New/Unexplained Change in Mental Status No Sepsis Action Taken by Nursing No Action Required Laboratory Data 08/02/24 06:44 08/02/24 06:44 Lab Results 08/01/24 08/01/24 08/01/24 Range/Units 13:27 13:44 14:32 WBC 23.38 H (4.8-10.8) K/ul RBC 3.61 L (4.20-5.40) M/uL Hgb 12.9 (12.0-16.0) g/dl Hct 39.0 (37.0-47.0) % MCV 108.0 H (80.0-100.0) fL MCH 35.7 H (25.0-34.0) pg MCHC 33.1 (32.0-36.0) g/dL RDW Std Deviation 57.8 H (36.4-46.3) fL RDW Coeff of Naman 14.4 (11.5-14.5) % Plt Count 182 (130-400) K/uL MPV 10.3 (9.4-12.4) fL Immature Gran % (Auto) 0.4 % Neut % (Auto) 87.6 % Lymph % (Auto) 4.1 % [place] % (Auto) 7.7 % Eos % (Auto) 0.0 % Baso % (Auto) 0.2 % Neut # (Auto) 20.46 H (1.40-6.50) K/uL Lymph # (Auto) 0.97 L (1.20-3.40) K/uL [place] # (Auto) 1.80 H (0.11-0.59) K/uL Eos # (Auto) 0.01 (0.00-0.50) K/uL Baso # (Auto) 0.04 (0.00-0.20) K/uL Immature Gran # (Auto) 0.10 (0.01-0.20) K/uL Sodium 136 (136-145) mmol/L Potassium 3.4 L (3.5-5.1) mmol/L Chloride 111 H (98-107) mmol/L Carbon Dioxide 16 L (21-32) mmol/L Anion Gap 9 (3-11) BUN 38 H (6-23) mg/dl Creatinine 2.13 H (0.6-1.2) mg/dl Est Cr Clr Drug Dosing 22.3 ml/min eGFR 24.61 BUN/Creatinine Ratio 17.8 (10-20) Glucose 101 H (70-99(Fasting)) mg/dl Calcium 9.0 (8.6-10.3) mg/dl Magnesium 1.8 (1.7-2.4) mg/dl Total Bilirubin 0.3 (0.2-1.0) mg/dl Direct Bilirubin 0.1 (0-0.2) mg/dl AST 11 L (13-39) U/L ALT 7 (7-52) U/L Alkaline Phosphatase 78 (34-104) U/L Total Creatine Kinase 17 L (26-192) U/L Total Protein 5.9 L (6.0-8.3) gm/dl Albumin 3.2 L (3.4-5.0) gm/dl Lipase 5 L (11-82) U/L Urine Color Yellow Urine Appearance Cloudy A (Clear) Urine pH 5.5 (4.5-7.5) Ur Specific [place] 1.019 (1.000-1.030) Urine Protein 1+ H (Negative) Urine Glucose (UA) Negative (Negative) Urine Ketones Negative (Negative) Urine Blood Negative (Negative) Urine Nitrite Negative (Negative) Urine Bilirubin Negative (Negative) Urine Urobilinogen Negative (Negative) Ur Leukocyte Esterase 1+ H (Negative) Urine WBC (Auto) 6-10 H (0-5) /hpf Urine RBC (Auto) 0-2 (0-2) /hpf U Hyaline Cast (Auto) 11-20 H (0-2) /lpf U Epithel Cells (Auto) >20 H (0-2) /hpf Urine Bacteria (Auto) 1+ H (None Seen) Hyaline Casts Present A (None Presnt) /lpf Ethyl Alcohol mg/dL < 10.0 (<10.0) mg/dl Adenovirus (PCR) (NotDetected) B. pertussis DNA (PCR) (NotDetected) B.parapertussis DNA PCR (NotDetected) C. pneumoniae DNA (PCR) (NotDetected) Coronavirus OC43 (PCR) (NotDetected) Coronavirus HKU1 (PCR) (NotDetected) Coronavirus 229E (PCR) (NotDetected) SARS-CoV-2 (PCR) (NotDetected) Coronavirus NL63 (PCR) (NotDetected) Human Metapneumovir PCR (NotDetected) Influenza Type A (PCR) (NotDetected) Influenza Type B (PCR) (NotDetected) M. pneumoniae (PCR) (NotDetected) Parainfluenza 1 (PCR) (NotDetected) Parainfluenza 2 (PCR) (NotDetected) Parainfluenza 3 (PCR) (NotDetected) Parainfluenza 4 (PCR) (NotDetected) RSV (PCR) (NotDetected) Entero/Rhino (PCR) (NotDetected) 08/01/24 Range/Units 15:10 WBC (4.8-10.8) K/ul RBC (4.20-5.40) M/uL Hgb (12.0-16.0) g/dl Hct (37.0-47.0) % MCV (80.0-100.0) fL MCH (25.0-34.0) pg MCHC (32.0-36.0) g/dL RDW Std Deviation (36.4-46.3) fL RDW Coeff of Naman (11.5-14.5) % Plt Count (130-400) K/uL MPV (9.4-12.4) fL Immature Gran % (Auto) % Neut % (Auto) % Lymph % (Auto) % [place] % (Auto) % Eos % (Auto) % Baso % (Auto) % Neut # (Auto) (1.40-6.50) K/uL Lymph # (Auto) (1.20-3.40) K/uL [place] # (Auto) (0.11-0.59) K/uL Eos # (Auto) (0.00-0.50) K/uL Baso # (Auto) (0.00-0.20) K/uL Immature Gran # (Auto) (0.01-0.20) K/uL Sodium (136-145) mmol/L Potassium (3.5-5.1) mmol/L Chloride (98-107) mmol/L Carbon Dioxide (21-32) mmol/L Anion Gap (3-11) BUN (6-23) mg/dl Creatinine (0.6-1.2) mg/dl Est Cr Clr Drug Dosing ml/min eGFR BUN/Creatinine Ratio (10-20) Glucose (70-99(Fasting)) mg/dl Calcium (8.6-10.3) mg/dl Magnesium (1.7-2.4) mg/dl Total Bilirubin (0.2-1.0) mg/dl Direct Bilirubin (0-0.2) mg/dl AST (13-39) U/L ALT (7-52) U/L Alkaline Phosphatase (34-104) U/L Total Creatine Kinase (26-192) U/L Total Protein (6.0-8.3) gm/dl Albumin (3.4-5.0) gm/dl Lipase (11-82) U/L Urine Color Urine Appearance (Clear) Urine pH (4.5-7.5) Ur Specific [place] (1.000-1.030) Urine Protein (Negative) Urine Glucose (UA) (Negative) Urine Ketones (Negative) Urine Blood (Negative) Urine Nitrite (Negative) Urine Bilirubin (Negative) Urine Urobilinogen (Negative) Ur Leukocyte Esterase (Negative) Urine WBC (Auto) (0-5) /hpf Urine RBC (Auto) (0-2) /hpf U Hyaline Cast (Auto) (0-2) /lpf U Epithel Cells (Auto) (0-2) /hpf Urine Bacteria (Auto) (None Seen) Hyaline Casts (None Presnt) /lpf Ethyl Alcohol mg/dL (<10.0) mg/dl Adenovirus (PCR) Not Detected (NotDetected) B. pertussis DNA (PCR) Not Detected (NotDetected) B.parapertussis DNA PCR Not Detected (NotDetected) C. pneumoniae DNA (PCR) Not Detected (NotDetected) Coronavirus OC43 (PCR) Not Detected (NotDetected) Coronavirus HKU1 (PCR) Not Detected (NotDetected) Coronavirus 229E (PCR) Not Detected (NotDetected) SARS-CoV-2 (PCR) Not Detected (NotDetected) Coronavirus NL63 (PCR) Not Detected (NotDetected) Human Metapneumovir PCR Not Detected (NotDetected) Influenza Type A (PCR) Not Detected (NotDetected) Influenza Type B (PCR) Not Detected (NotDetected) M. pneumoniae (PCR) Not Detected (NotDetected) Parainfluenza 1 (PCR) Not Detected (NotDetected) Parainfluenza 2 (PCR) Not Detected (NotDetected) Parainfluenza 3 (PCR) Not Detected (NotDetected) Parainfluenza 4 (PCR) Not Detected (NotDetected) RSV (PCR) Not Detected (NotDetected) Entero/Rhino (PCR) Not Detected (NotDetected) Administered Medications Acetaminophen (Acetaminophen 325 Mg Tab) 650 mg PO Q4H PRN PRN Reason: Pain or Fever Stop: 08/31/24 18:25 Last Admin: 08/02/24 09:16 Dose: 650 mg Documented By: Admin: 08/02/24 03:37 Dose: 650 mg Documented By: LILI Apixaban (Apixaban 5 Mg Tablet) 5 mg PO BID [facility] Stop: 08/31/24 20:59 Last Admin: 08/02/24 09:01 Dose: 5 mg Documented By: Admin: 08/01/24 21:31 Dose: 5 mg Documented By: LILI Calcitonin Mesa (Calcitonin [place] Na 200 Iu/Ac 3.7 Ml Btl) 1 sprays NA DAILY MANDI Stop: 09/01/24 08:59 Last Admin: 08/02/24 09:01 Dose: 1 sprays Documented By: JANETH Wise Syrup (Wise Syrup 5 Ml Udp) 5 ml PO Q6 MANDI Stop: 08/12/24 17:59 Last Admin: 08/02/24 17:54 Dose: 5 ml Documented By: JANETH Gabapentin (Gabapentin 100 Mg Cap) 200 mg PO QID MANDI Stop: 08/31/24 20:59 Last Admin: 08/02/24 17:54 Dose: 200 mg Documented By: Admin: 08/02/24 12:58 Dose: 200 mg Documented By: Admin: 08/02/24 09:01 Dose: 200 mg Documented By: Admin: 08/01/24 21:30 Dose: 200 mg Documented By: LILI Sodium Chloride (Nss) 1,000 mls @ 65 mls/hr IV .[id number] [facility] Stop: 08/02/24 23:16 Last Admin: 08/01/24 16:52 Dose: 65 mls/hr Documented By: FAYE Ampicillin Sodium/Sulbactam Sodium (Unasyn) 3,000 mg in 100 mls @ 200 mls/hr IV Q12H MANDI; Protocol Stop: 08/11/24 18:59 Last Admin: 08/02/24 18:40 Dose: 200 mls/hr Documented By: Infusion: 08/02/24 06:46 Dose: Infused Documented By: Admin: 08/02/24 06:08 Dose: 200 mls/hr Documented By: Infusion: 08/01/24 22:01 Dose: Infused Documented By: Admin: 08/01/24 21:24 Dose: 200 mls/hr Documented By: LILI Isosorbide Mononitrate (Isosorbide [place] Extended Rel 30 Mg Tabcr) 30 mg PO QAM MANDI Stop: 09/01/24 08:59 Last Admin: 08/02/24 09:02 Dose: 30 mg Documented By: ANGLER Lactobacillus Acidophilus (Advanced Probiotic 625 Mg Capsule) 1,250 mg PO DAILY MANDI Stop: 09/01/24 08:59 Last Admin: 08/02/24 09:02 Dose: 1,250 mg Documented By: ANGLER Lorazepam (Lorazepam 1 Mg Tab) 1 mg PO QID PRN PRN Reason: Anxiety Stop: 08/31/24 18:25 Last Admin: 08/02/24 17:57 Dose: 1 mg Documented By: Admin: 08/02/24 09:16 Dose: 1 mg Documented By: Admin: 08/01/24 21:30 Dose: 1 mg Documented By: LILI Metoprolol Succinate (Metoprolol Succ 50mg Ext Rel Tab) 50 mg PO DAILY [facility] Stop: 09/01/24 08:59 Last Admin: 08/02/24 09:02 Dose: 50 mg Documented By: JANETH Nicotine (Nicotine 14 Mg/24 Hr Patch) 1 patch TD QAM [facility] Stop: 09/01/24 14:44 Last Admin: 08/02/24 15:07 Dose: 1 patch Documented By: JANETH Ondansetron HCl (Ondansetron Inj 2 Mg/Ml 2 Ml Vial) 4 mg IV Q4H PRN PRN Reason: Nausea Stop: 08/31/24 21:26 Last Admin: 08/01/24 21:35 Dose: 4 mg Documented By: LILI Pantoprazole Sodium (Pantoprazole 40 Mg Tab) 40 mg PO BID MANDI Stop: 08/31/24 20:59 Last Admin: 08/02/24 09:02 Dose: 40 mg Documented By: Admin: 08/01/24 21:31 Dose: 40 mg Documented By: LILI Trazodone HCl (Trazodone Hcl 50 Mg Tab) 50 mg PO HS MANDI Stop: 08/31/24 20:59 Last Admin: 08/01/24 21:31 Dose: Not Given Documented By: LILI Vancomycin HCl (Vancomycin Hcl 125 Mg/2.5ml Soln) 125 mg PO Q6 MANDI Stop: 08/12/24 17:59 Last Admin: 08/02/24 17:54 Dose: 125 mg Documented By: RRR Discontinued Medications Gabapentin (Gabapentin 800 Mg Tab) 800 mg PO QID MANDI Stop: 08/31/24 18:25 Last Admin: 08/01/24 19:53 Dose: Not Given Documented By: LILI Sodium Chloride (Nss) 1,000 mls @ 999 mls/hr IV .Q1H1M ONE Stop: 08/01/24 15:31 Last Infusion: 08/01/24 20:41 Dose: Infused Documented By: Admin: 08/01/24 14:51 Dose: 999 mls/hr Documented By: FAYE Lorazepam (Lorazepam 1 Mg Tab) 1 mg PO QID MANDI Stop: 08/31/24 18:25 Last Admin: 08/01/24 19:53 Dose: Not Given Documented By: LILI Potassium Chloride (Potassium Chloride Crtab 20 Meq Tabcr) 20 meq PO NOW STA Stop: 08/01/24 16:10 Last Admin: 08/01/24 16:52 Dose: 20 meq Documented By: FAYE Potassium Chloride (Potassium Chloride Crtab 20 Meq Tabcr) 20 meq PO NOW STA Stop: 08/02/24 16:54 Last Admin: 08/02/24 17:54 Dose: 20 meq Documented By: RRR Imaging Data Radiologist's Impression: Chest X-Ray 08/01/24 13:27 XR chest 1V portable HISTORY: 68 years-old Female injury alert acute chest trauma COMPARISON: August 18, 2023 TECHNIQUE: AP view of the chest FINDINGS: Heart size is enlarged. Median sternotomy. Pulmonary vascular congestion with chronic interstitial coarsening. No pneumothorax or large pleural effusion. Bones appear grossly intact. Right upper quadrant surgical clips. Chronic deformity of the distal left clavicle. IMPRESSION: Cardiomegaly with pulmonary vascular congestion. ACT 112: Negative or not required by law. The above report was generated using voice recognition software. It may contain grammatical, syntax or spelling errors. Electronically signed by: Jaime Osullivan M.D. 08/01/2024 2:[address] 08/01/24 14:16 CT OF THE HEAD WITHOUT CONTRAST CLINICAL HISTORY: neuro deficit, acute stroke suspected COMPARISON STUDY: Head CT December 14, 2017. MRI of the brain March 01, 2018. CT DOSE: 1250.21 mGy.cm TECHNIQUE: Helical axial images of the head were obtained without IV contrast. Automated exposure control was utilized for the study. A dose lowering technique was utilized adhering to the principles of ALARA. FINDINGS: No acute intracranial hemorrhage, midline shift or mass effect is present. The ventricular system is unremarkable. The basal cisterns are patent. No extra-axial collections are present. There are no findings to suggest acute dural sinus thrombosis or acute territorial infarct. No significant calvarial abnormalities are present. White matter hypodensities favor small vessel disease. The left mastoid air cells are opacified. There is also fluid within the left middle ear. There is a small amount of fluid within the right mastoid air cells. IMPRESSION: 1. No acute intracranial findings. 2. Opacified left mastoid air cells and fluid within the left middle ear. The findings may reflect otomastoiditis. Small amount of fluid within the right mastoid air cells. ACT 112: Negative or not required by law. Electronically signed by: Jose Dias M.D. 08/01/2024 2:50 PM Discharge Plan Visit Data Chief Complaint: TIA Symptoms Stated Complaint: WEAKNESS, CONFUSION, SLURRED SPEECH, FELL TWICE ED Provider: Kimberly Rodriguez Discharge Problem: HAYDEN (acute kidney injury) Patient Disposition: Admitted As Inpatient Discharge Instructions Interventions: ED Discharge Assessment Last Done: 08/01/24 17:30
--- NOTE | 2024-08-01 15:46 | History & Physical Report ---
Date of Service August 01, 2024 Assessment & Plan (1) Generalized weakness: Plan: This is a 68 y/o female with chronic HFrEF, CAD, PAD, PAF, HTN, COPD, dyslipidemia, and other history as outlined below who presented to the ED today with progressive weakness for past few weeks but particularly the last 1-2 days. Work-up in the ED revealed marked leukocytosis with WBCs of 23.38, HAYDEN with BUN 38, creatinine 2.13 (Baseline ~0.7). UA was non-cath specimen, showed epithelial cells - culture was sent and pending. Respiratory panel was negative. CT abd/pel ordered and shows new mild diffuse colitis. - Admit to med telemetry. - NPO due to abnormal CT abd/pel - Consult general surgery - Empiric IV Unasyn - Stool PCR, C. diff - Replete potassium, check magnesium - Repeat CBC, BMP, Mg, CK in the AM - BP currently with systolic 90s-100s, likely related to illness/mild dehydration - will hold BP meds except for beta atif (2) HAYDEN (acute kidney injury): Plan: May be related to recent viral illness, dehydration. No obstructive on CT abd/pel Continue with gentle IVF since NPO Repeat BMP in the AM Holding losartan, spironolactone as discussed (3) GERD (gastroesophageal reflux disease): Plan: Chronic, stable Continue BID PPI therapy (4) Paroxysmal atrial fibrillation: Plan: Chronic, stable Continue beta atif (with holds), Eliquis Replete electrolytes as discussed (5) Chronic HFrEF (heart failure with reduced ejection fraction): Plan: Chronic, stable (6) Hypertension: Plan: BP currently low normal - holding meds as discussed. Continue to monitor (7) CAD (coronary artery disease): Plan: Chronic, stable Plan Pt seen and reviewed with collaborating physician, Dr. Jones. Plan of care discussed and as outlined above. Code status: Full code DVT prophylaxis: on Eliquis Admit to med telemetry PT/OT evaluations ordered due to generalized weakness, fall precautions. Angélica Garvin PA-C History of Present Illness Chief Complaint: weakness Primary Care Provider: Akbar Daniel, DO This is a 68 y/o female with chronic HFrEF, CAD, PAD, PAF, HTN, COPD, dyslipidemia, and other history as outlined below who presented to the ED today with progressive weakness for past few weeks but particularly the last 1-2 days. Pt reports at least three falls in the last 24 hours when she either slid out of bed or felt like her legs gave out and she slid to the floor. She was unable to get off the floor without help so was on the floor for prolonged period. She denies hitting her head. Has felt overall weak and tired. Currently, she reports feeling sore in hips and legs from the fall - hit left hip when she fell in her kitchen. She also reports a cough x several days - productive of white mucus. No significant dyspnea. Her appetite has been at baseline. She denies N/V. She reports chronic diarrhea but feels like this is unchanged from her baseline. No blood in stools. She denies fevers but has had chills (did check her temp at home). She denies dysuria, hematuria, urinary frequency. Denies chest pain, palpitations, syncope. Allergies Allergy/AdvReac Type Severity Reaction Status Date / Time benzyl alcohol Allergy Severe Anaphylaxis Verified 08/15/23 05:44 Iodinated Contrast Media Allergy Severe Rash - IVP Verified 08/15/23 05:44 dye lisinopril Allergy Severe chills,sera Verified 08/15/23 05:44 rs prochlorperazine Allergy Severe Anaphylaxis Verified 08/15/23 05:44 saccharin Allergy Severe Anaphylaxis Verified 08/15/23 05:44 simvastatin Allergy Intermediate itching Verified 08/15/23 05:44 furosemide Allergy Mild rash Verified 08/15/23 05:44 promethazine Allergy Mild rash Verified 08/15/23 05:44 Home Medications Medication Instructions Recorded Confirmed Type gabapentin 800 mg tablet 800 mg PO QID 01/02/22 08/01/24 History isosorbide mononitrate 30 mg 30 mg PO QAM 01/02/22 08/01/24 History tablet,extended release 24 hr lorazepam 1 mg tablet 1 mg PO QID severe anxiety 01/02/22 08/01/24 History omeprazole 40 mg capsule,delayed 40 mg PO BID 01/02/22 08/01/24 History release albuterol sulfate 90 mcg/actuation 2 puff inhalation Q4H PRN Wheezing 01/03/22 08/01/24 History aerosol inhaler pravastatin 40 mg tablet 40 mg PO HS 01/03/22 08/01/24 History nitroglycerin 0.4 mg sublingual 0.4 mg buccal UD PRN Chest Pain 02/27/22 08/01/24 History tablet apixaban 5 mg tablet (Eliquis) 5 mg PO BID 11/28/22 08/01/24 History losartan 100 mg tablet 100 mg PO HS 11/28/22 08/01/24 History spironolactone 50 mg tablet 50 mg PO BID 11/28/22 08/01/24 History (Aldactone) metoprolol succinate 50 mg 50 mg PO DAILY 07/24/23 08/01/24 History tablet,extended release 24 hr trazodone 150 mg tablet 150 mg PO HS 07/24/23 08/01/24 History calcitonin (salmon) 200 See Rx Instructions .Route .COMPLEX 08/01/24 08/01/24 History unit/actuation nasal spray Past Med/Surg History Problem List (Updated 08/01/24 @ 17:06 by Rosaura Garvin PA-C) Chronic HFrEF (heart failure with reduced ejection fraction) EF 40-45% per 09/2022 ECHO HAYDEN (acute kidney injury) Generalized weakness Paroxysmal atrial fibrillation Atherosclerosis of artery of both lower extremities Current smoker COPD with emphysema Polycythemia Prediabetes pt denies PAD (peripheral artery disease) Myocardial Infarction unsure of date - 2009 or earlier. Hyperlipidemia Hypertension GERD (gastroesophageal reflux disease) Well controlled and stable Anxiety CAD (coronary artery disease) CABG x 4 2002, CABG x 3 2009 Patent PONCE to LAD, vein graft to diagonal and obtuse marginal, and collaterals from RCA by catheterization 01/2017; No new blockages/ischemia seen on stress test 9 Anemia s/p iron infusions- last iron infusion June 2023 Medical History (Updated 08/01/24 @ 17:06 by Rosaura Garvin PA-C) CHF (congestive heart failure) EF 40-45% per 09/2022 ECHO Closed fracture of left proximal humerus Ileus, postoperative Postoperative fever Acute blood loss as cause of postoperative anemia Atrial fibrillation On Eliquis Ischemic cardiomyopathy History of panic attacks worse with large groups History of stomach ulcers 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, twitching and left eye tearing Peripheral neuropathy Migraine Surgical History History of coronary artery bypass graft x4 vessel bypass (~2001/2002) [facility] in [place] x3 vessel bypass (~2009) JEMIMA Wilde follows with Dr Borja ([place]) Family history of reaction to anesthesia DAUGHTER>SLOW TO WAKE UP History of esophagogastroduodenoscopy (EGD) History of colonoscopy H/O abdominal surgery 25-30 YEARS AGO>PART OF STOMACH/COLON/PANCREAS REMOVED D/T STOMACH ULCER History of tooth extraction History of cataract surgery RT/LEFT History of cardiac cath MULTIPLE CATH'S DONE>NO SENTS ([facility]) most recently done in the last five years ([id number]) done at [facility]. no stents. History of total hysterectomy History of cholecystectomy History of appendectomy Family History Daughter Family hx of colon cancer Family history of diabetes mellitus FHx: thyroid cancer Sister Family history of diabetes mellitus Brother FHx: kidney cancer Family history of diabetes mellitus FHx: pancreatic cancer Social History Smoking Status: Current every day smoker Tobacco Type: Cigarettes Cigarettes Per Day: 10 cigs daily - down from 2 packs a day; Second Hand Exposure: Yes; Do You Dip or Chew Tobacco: No; Hx Alcohol Use: No Hx Substance Use: No Preferred Language: Cypriot Communication Ability: Effective Patient Care Technician Instructor Required: No Beliefs That Will Affect Care: None Current Living Situation: Spouse Current Living Situation Comment: 2 story home, only lives on 1 floor Feels Safe at Home: Yes Assistive Devices: Cane and Walker Review of Systems Review of Systems: All systems reviewed & are unremarkable except as noted in Subjective Physical Exam Physical Exam: Please see the physician note for details of the physical exam. Results & Data Results & Data Vital Signs (Past 12 Hours) Vital Signs Temp Pulse Pulse Resp BP BP Pulse Ox 08/01/24 15:05 20 97/49 L 98 08/01/24 13:53 85 08/01/24 13:49 83 20 115/72 98 08/01/24 13:07 36.6 C 117 H 20 100/65 93 O2 Del Method 08/01/24 15:05 Room Air 08/01/24 13:53 11/15/24 13:49 Room Air 08/01/24 13:07 Room Air Laboratory Results Lab Results 08/01/24 08/01/24 08/01/24 Range/Units 13:27 13:44 14:32 WBC 23.38 H (4.8-10.8) K/ul RBC 3.61 L (4.20-5.40) M/uL Hgb 12.9 (12.0-16.0) g/dl Hct 39.0 (37.0-47.0) % MCV 108.0 H (80.0-100.0) fL MCH 35.7 H (25.0-34.0) pg MCHC 33.1 (32.0-36.0) g/dL RDW Std Deviation 57.8 H (36.4-46.3) fL RDW Coeff of [place] 14.4 (11.5-14.5) % Plt Count 182 (130-400) K/uL MPV 10.3 (9.4-12.4) fL Immature Gran % (Auto) 0.4 % Neut % (Auto) 87.6 % Lymph % (Auto) 4.1 % [place] % (Auto) 7.7 % Eos % (Auto) 0.0 % Baso % (Auto) 0.2 % Neut # (Auto) 20.46 H (1.40-6.50) K/uL Lymph # (Auto) 0.97 L (1.20-3.40) K/uL Carson # (Auto) 1.80 H (0.11-0.59) K/uL Eos # (Auto) 0.01 (0.00-0.50) K/uL Baso # (Auto) 0.04 (0.00-0.20) K/uL Immature Gran # (Auto) 0.10 (0.01-0.20) K/uL Sodium 136 (136-145) mmol/L Potassium 3.4 L (3.5-5.1) mmol/L Chloride 111 H (98-107) mmol/L Carbon Dioxide 16 L (21-32) mmol/L Anion Gap 9 (3-11) BUN 38 H (6-23) mg/dl Creatinine 2.13 H (0.6-1.2) mg/dl Est Cr Clr Drug Dosing 22.3 ml/min eGFR 24.61 BUN/Creatinine Ratio 17.8 (10-20) Glucose 101 H (70-99(Fasting)) mg/dl Calcium 9.0 (8.6-10.3) mg/dl Total Bilirubin 0.3 (0.2-1.0) mg/dl Direct Bilirubin 0.1 (0-0.2) mg/dl AST 11 L (13-39) U/L ALT 7 (7-52) U/L Alkaline Phosphatase 78 (34-104) U/L Total Protein 5.9 L (6.0-8.3) gm/dl Albumin 3.2 L (3.4-5.0) gm/dl Lipase 5 L (11-82) U/L Urine Color Yellow Urine Appearance Cloudy A (Clear) Urine pH 5.5 (4.5-7.5) Ur Specific [place] 1.019 (1.000-1.030) Urine Protein 1+ H (Negative) Urine Glucose (UA) Negative (Negative) Urine Ketones Negative (Negative) Urine Blood Negative (Negative) Urine Nitrite Negative (Negative) Urine Bilirubin Negative (Negative) Urine Urobilinogen Negative (Negative) Ur Leukocyte Esterase 1+ H (Negative) Urine WBC (Auto) 6-10 H (0-5) /hpf Urine RBC (Auto) 0-2 (0-2) /hpf U Hyaline Cast (Auto) 11-20 H (0-2) /lpf U Epithel Cells (Auto) >20 H (0-2) /hpf Urine Bacteria (Auto) 1+ H (None Seen) Hyaline Casts Present A (None Presnt) /lpf Ethyl Alcohol mg/dL < 10.0 (<10.0) mg/dl Diagnostic Findings Chest X-Ray 08/01/24 13:27 XR chest 1V portable HISTORY: 68 years-old Female injury alert acute chest trauma COMPARISON: August 18, 2023 TECHNIQUE: AP view of the chest FINDINGS: Heart size is enlarged. Median sternotomy. Pulmonary vascular congestion with chronic interstitial coarsening. No pneumothorax or large pleural effusion. Bones appear grossly intact. Right upper quadrant surgical clips. Chronic deformity of the distal left clavicle. IMPRESSION: Cardiomegaly with pulmonary vascular congestion. ACT 112: Negative or not required by law. The above report was generated using voice recognition software. It may contain grammatical, syntax or spelling errors. Electronically signed by: Jaime Osullivan M.D. 08/01/2024 2:[address] 08/01/24 14:16 CT OF THE HEAD WITHOUT CONTRAST CLINICAL HISTORY: neuro deficit, acute stroke suspected COMPARISON STUDY: Head CT December 14, 2017. MRI of the brain March 01, 2018. CT DOSE: 1250.21 mGy.cm TECHNIQUE: Helical axial images of the head were obtained without IV contrast. Automated exposure control was utilized for the study. A dose lowering technique was utilized adhering to the principles of ALARA. FINDINGS: No acute intracranial hemorrhage, midline shift or mass effect is present. The ventricular system is unremarkable. The basal cisterns are patent. No extra-axial collections are present. There are no findings to suggest acute dural sinus thrombosis or acute territorial infarct. No significant calvarial abnormalities are present. White matter hypodensities favor small vessel disease. The left mastoid air cells are opacified. There is also fluid within the left middle ear. There is a small amount of fluid within the right mastoid air cells. IMPRESSION: 1. No acute intracranial findings. 2. Opacified left mastoid air cells and fluid within the left middle ear. The findings may reflect otomastoiditis. Small amount of fluid within the right mastoid air cells. ACT 112: Negative or not required by law. Electronically signed by: Jose Dias M.D. 08/01/2024 2:50 PM Medications Administered Discontinued Medications Sodium Chloride (Nss) 1,000 mls @ 999 mls/hr IV .Q1H1M ONE Stop: 08/01/24 15:31 Last Admin: 08/01/24 14:51 Dose: 999 mls/hr Documented By: FAYE Supervising Physician Co-Signing Physician Notes 68-year-old female with PMH of HFrEF, CAD, PAD, PAF, HTN, COPD, dyslipidemia presented to the ED with progressive weakness for few weeks, worsening weakness/falls/dizziness since 1 to 2 days. She reports falling 3 times since yesterday, 2 times rolling out of bed onto the floor and hitting back/denies hitting head and 1 time see slid to the floor in the kitchen without actually hitting any body parts abruptly. She denies fever/sore throat. Reports cough with white to yellow sputum. Denies shortness of breath. Reports chills. Reports appetite at her baseline, denies nausea/vomiting. Patient reports she has diarrhea. Denies any pain or burning with passing urine. Reports muscle pain all over the body. Labs and imaging reviewed. WBC elevated at 23.3 8K, potassium 3.4, creatinine 2.13 [baseline around 0.5 to-0.8], urinalysis equivocal [patient denies pain or burning with passing urine] - follow urine Cx.Respiratory pathogen panel negative. CXR with pulmonary vascular congestion. CT head with opacified left mastoid air cells and fluid within the left middle ear and right mastoid air cells. CT abdomen pelvis: New mild, diffuse wall thickening of the large bowel suggestive of colitis. Active problems: Possible viral URTI: Patient reports getting generalized weakness and generalized myalgia, throat could not be examined as patient had eaten red- colored food. RPP negative. Continue symptomatic management. PT/OT. Middle ear and mastoid effusion: as per CT Head. Left ear TM bulge noted, no erythema or tenderness on exam. Pt updated about the findings and possibly monitoring off of antibiotic but since she has colitis she will be on unasyn. Colitis: Per CTAP as above, patient with abdominal pain and has diarrhea. Will send stool PCR and C. difficile. WBC elevated. IV Unasyn, N.p.o., IV fluid, general surgery consult. Acute kidney injury: Creatinine elevated around 2.13, baseline creatinine around 0.5-0.8, likely prerenal. CTAP with no stones or hydronephrosis. Continue with IV fluid, labs in AM. Hold nephrotoxic's including home losartan and Aldactone. Soft blood pressure: Likely secondary to acute illness, hold home blood pressure medications. On exam: GENERAL: Lethargic and oriented x3. NAD, on RA. Appears ill/frail/weak/elderly. HEENT: No pallor, no icterus. Pupils equal, round and reactive to light. Oral mucosa dry. 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 NECK: No JVD, no neck masses. No mastoid tenderness, Left ear TM bulge noted, no erythema or pus noted. No sinuses/mastoid tenderness noted. HEART: S1 and S2 heard. Regular rate and rhythm. No murmur, no gallop. RESPIRATORY SYSTEM: Normal AP diameter. No accessory muscle use. No wheezing, no crackles. ABDOMEN: Soft, bowel sounds present, mild generalized tender, no distention. CENTRAL NERVOUS SYSTEM: No facial droop. Speech is clear. Obeys simple commands. Moves extremities. EXTREMITIES: No edema, no erythema seen. Back w/ some superficial bruises noted. I have seen and examined the patient and have discussed the case with the provider above. I agree with the assessment and plan as stated. time spent: 35 min. (3) GERD (gastroesophageal reflux disease) Esophagitis presence: esophagitis presence not specified Qualified Code(s): K21.9 - Gastro-esophageal reflux disease without esophagitis (6) Hypertension Hypertension type: primary hypertension Qualified Code(s): I10 - Essential (primary) hypertension (7) CAD (coronary artery disease) Associated angina: without angina Coronary Disease-Associated Artery/Lesion type: hoh artery [place] vs. transplanted heart: hoh heart Qualified Code(s): I25.10 - Atherosclerotic heart disease of hoh coronary artery without angina pectoris
[2024-08-01 16:31] LABS: Adenovirus PCR Not Detected (NotDetected); Bordetella parapertussis PCR Not Detected (NotDetected); Bordetella pertussis PCR Not Detected (NotDetected); Chlamydia pneumoniae PCR Not Detected (NotDetected); Coronavirus 229E PCR Not Detected (NotDetected); Coronavirus CoV-2 (COVID19)PCR Not Detected (NotDetected); Coronavirus HKU1 PCR Not Detected (NotDetected); Coronavirus NL63 PCR Not Detected (NotDetected); Coronavirus OC43PCR Not Detected (NotDetected); Human Metapneumovirus PCR Not Detected (NotDetected); Influenza A PCR Not Detected (NotDetected); Influenza B PCR Not Detected (NotDetected); Mycoplasma pneumoniae PCR Not Detected (NotDetected); Parainfluenza Virus 1 PCR Not Detected (NotDetected); Parainfluenza Virus 2 PCR Not Detected (NotDetected); Parainfluenza Virus 3 PCR Not Detected (NotDetected); Parainfluenza Virus 4 PCR Not Detected (NotDetected); Respiratory Syncytial VirusPCR Not Detected (NotDetected); Rhinovirus/Enterovirus PCR Not Detected (NotDetected)
--- NOTE | 2024-08-01 16:35 | CT Scan Report ---
EXAMINATION: CT of the abdomen and pelvis performed without contrast TECHNIQUE: Helical CT images from the lung bases through the symphysis pubis were obtained without contrast. Coronal and sagittal reformatted images were generated at a workstation for further assessment. Dose reduction techniques were achieved by using automatic exposure control and/or adjustment of mA and/or kV according to patient size and/or use of iterative reconstruction technique. COMPARISON: 08/19/2023 HISTORY: Abdominal pain FINDINGS: No evidence for bowel obstruction. No renal calculi. No ureteral calculi. No pneumoperitoneum or pneumatosis. Skin yudi within the inguinal regions. A femorofemoral bypass graft is identified. Prior cholecystectomy. Suture material again noted within the left upper quadrant involving the large bowel, with primary reanastomosis noted. There is some new mild diffuse wall thickening of the large bowel. [id number] stool burden. Heavy aortoiliac calcification. Adrenal glands, spleen, pancreas, and liver appear unremarkable. IMPRESSION: New mild, diffuse wall thickening of the large bowel, suggestive of colitis Electronically signed by Leonidas Daniel 08-01-2024 4:34 PM
[2024-08-01] MEDS ORDERED: AMPICILLIN/SULBACTAM SOD 1,500 MG/100 ML BAG IV SCH (16:45)
[2024-08-01 16:47] LABS: Magnesium 1.8 mg/dl (1.7-2.4)
[2024-08-01] MEDS: SODIUM CHLORIDE 0.9% 1,000 ML IV SCH (16:52)
[2024-08-01] MEDS: POTASSIUM CHLORIDE CRTAB 20 MEQ TABCR PO STA (16:52)
[2024-08-01] MEDS: LORazepam 1 MG TAB PO SCH (19:53)
[2024-08-01] MEDS: GABAPENTIN 800 MG TAB PO SCH (19:53)
--- NOTE | 2024-08-01 20:53 | Surgery Consultation ---
Date of Consultation August 01, 2024 Assessment & Plan (1) Colitis: Patient is a 68-year-old female presented to the emergency department due to progressive weakness that she states has been ongoing for the past few weeks which has gotten worse over the last few days. She states that she sustained multiple falls at home within the last 24 hours, including falling out of her bed. Patient also reports a productive cough over the last few days as well. Since her recent falls she is also complaining of hip pain and lower back pain. Due to ongoing symptoms, the patient came to the ED for further evaluation. Her workup revealed an elevated WBC at 23.3, evidence of an HAYDEN and CT findings concerning for colitis. Patient was seen and evaluated this evening at bedside with attending surgeon Dr. Lindsey. She is resting comfortably in bed with stable vitals. Patient tells us that she does suffer from chronic diarrhea and diffuse abdominal pain for years and was diagnosed by her GI doctor with dumping syndrome. She denies any worsening abdominal pain and her appetite has been at baseline. She denies any recent nausea or vomiting. Patient on exam is nontoxic appearing - abdomen is soft, nondistended, and nontender to palpation. No indication for surgical intervention, recommend conservative management at this time. Stool studies ordered and pending. Continue IV antibiotic coverage and trend WBC. Due to the patient having no abdominal complaints she may have her diet advanced this evening and will reevaluate patient in AM. Continue medical management per primary team, surgery will follow Supervising Physician Co-Signing Physician Notes I saw and examined this patient with the surgical PA and agreed that there is no indication for surgical intervention. The patient may have clears. History of Present Illness Reason for Consultation: Colitis History of Present Illness Patient is a 68-year-old female presented to the emergency department due to progressive weakness that she states has been ongoing for the past few weeks which has gotten worse over the last few days. She states she does have anemia and does feel weak at baseline because of this, she had routine lab work last month to check her iron levels and her WBC was elevated at 14 but she states that she was not made aware of this, she also explains at that time she felt in her normal state of health. However, recently her weakness has progressed and she states that she sustained multiple falls at home within the last 24 hours, including falling out of her bed. Patient also reports a productive cough over the last few days as well. Since her recent falls she is also complaining of hip pain and lower back pain. Due to ongoing symptoms, the patient came to the ED for further evaluation. Her workup revealed an elevated WBC at 23.3, evidence of an HAYDEN and CT findings concerning for colitis. Patient was seen and evaluated this evening at bedside, she is resting comfortably in bed and has stable vitals. Patient states she has had chronic diarrhea and diffuse abdominal pain for years and was diagnosed by her GI doctor with dumping syndrome. She does have a significant surgical history for previous ex lap due to a perforated stomach ulcer along with an open cholecystectomy, appendectomy, and total hysterectomy. Patient's last colonoscopy was approximately 3 years ago and states that there were no abnormal findings at that time. Since the onset of the patient's symptoms she states her appetite has been at her baseline and she denies any worsening abdominal pain, nausea or episodes of emesis. Allergies Allergy/AdvReac Type Severity Reaction Status Date / Time benzyl alcohol Allergy Severe Anaphylaxis Verified 08/15/23 05:44 Iodinated Contrast Media Allergy Severe Rash - IVP Verified 08/15/23 05:44 dye lisinopril Allergy Severe chills,sera Verified 08/15/23 05:44 rs prochlorperazine Allergy Severe Anaphylaxis Verified 08/15/23 05:44 saccharin Allergy Severe Anaphylaxis Verified 08/15/23 05:44 simvastatin Allergy Intermediate itching Verified 08/15/23 05:44 furosemide Allergy Mild rash Verified 08/15/23 05:44 promethazine Allergy Mild rash Verified 08/15/23 05:44 Home Medications Medication Instructions Recorded Confirmed Type gabapentin 800 mg tablet 800 mg PO QID 01/02/22 08/01/24 History isosorbide mononitrate 30 mg 30 mg PO QAM 01/02/22 08/01/24 History tablet,extended release 24 hr lorazepam 1 mg tablet 1 mg PO QID severe anxiety 01/02/22 08/01/24 History omeprazole 40 mg capsule,delayed 40 mg PO BID 01/02/22 08/01/24 History release albuterol sulfate 90 mcg/actuation 2 puff inhalation Q4H PRN Wheezing 01/03/22 08/01/24 History aerosol inhaler pravastatin 40 mg tablet 40 mg PO HS 01/03/22 08/01/24 History nitroglycerin 0.4 mg sublingual 0.4 mg buccal UD PRN Chest Pain 02/27/22 08/01/24 History tablet apixaban 5 mg tablet (Eliquis) 5 mg PO BID 11/28/22 08/01/24 History losartan 100 mg tablet 100 mg PO HS 11/28/22 08/01/24 History spironolactone 50 mg tablet 50 mg PO BID 11/28/22 08/01/24 History (Aldactone) metoprolol succinate 50 mg 50 mg PO DAILY 07/24/23 08/01/24 History tablet,extended release 24 hr trazodone 150 mg tablet 150 mg PO HS 07/24/23 08/01/24 History calcitonin (salmon) 200 See Rx Instructions .Route .COMPLEX 08/01/24 08/01/24 History unit/actuation nasal spray Patient History Medical History (Updated 08/01/24 @ 20:47 by Prakash Robles PA-C) CHF (congestive heart failure) EF 40-45% per 09/2022 ECHO Closed fracture of left proximal humerus Ileus, postoperative Postoperative fever Acute blood loss as cause of postoperative anemia Atrial fibrillation On Eliquis Ischemic cardiomyopathy History of panic attacks worse with large groups History of stomach ulcers 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, twitching and left eye tearing Peripheral neuropathy Migraine Surgical History History of coronary artery bypass graft x4 vessel bypass (~2001/2002) [facility] in [place] x3 vessel bypass (~2009) [facility] Andry follows with Dr Borja ([place]) Family history of reaction to anesthesia DAUGHTER>SLOW TO WAKE UP History of esophagogastroduodenoscopy (EGD) History of colonoscopy H/O abdominal surgery 25-30 YEARS AGO>PART OF STOMACH/COLON/PANCREAS REMOVED D/T STOMACH ULCER History of tooth extraction History of cataract surgery RT/LEFT History of cardiac cath MULTIPLE CATH'S DONE>NO SENTS ([facility]) most recently done in the last five years ([id number]) done at [facility]. no stents. History of total hysterectomy History of cholecystectomy History of appendectomy Family History Daughter Family hx of colon cancer Family history of diabetes mellitus FHx: thyroid cancer Sister Family history of diabetes mellitus Brother FHx: kidney cancer Family history of diabetes mellitus FHx: pancreatic cancer Social History Smoking Status: Current every day smoker Tobacco Type: Cigarettes Cigarettes Per Day: 1ppd; Second Hand Exposure: Yes; Do You Dip or Chew Tobacco: No; Hx Alcohol Use: No Hx Substance Use: No Preferred Language: Qatari Communication Ability: Effective Secretarial Teacher Required: No Beliefs That Will Affect Care: None Current Living Situation: Spouse Current Living Situation Comment: 2 story home, only lives on 1 floor Feels Safe at Home: Yes Assistive Devices: Walker Review of Systems Review of Systems: All systems reviewed & are unremarkable except as noted in HPI & below Physical Exam Constitutional: WD/WN, vitals as above Respiratory: normal respiratory effort, lungs clear to auscultation Cardiovascular: RRR, no murmur, no edema Gastrointestinal (Abdomen): Abdomen soft, nondistended, nontender to palpation. No rebound, guarding or signs of peritonitis. +Old midline and RUQ surgical sites appr eciated. Skin: no rashes, warm and dry Psychiatric: A+Ox3, euthymic affect Results & Data Vital Signs (Past 12 Hours) Vital Signs Temp Pulse Pulse Resp BP BP Pulse Ox 08/01/24 19:41 90 08/01/24 18:40 36.7 C 87 19 126/80 93 08/01/24 17:00 91 H 20 121/60 96 08/01/24 15:05 20 97/49 L 98 08/01/24 13:53 85 08/01/24 13:49 83 20 115/72 98 08/01/24 13:07 36.6 C 117 H 20 100/65 93 O2 Del Method 08/01/24 19:41 08/01/24 18:40 Room Air 08/01/24 17:00 Room Air 08/01/24 15:05 Room Air 08/01/24 13:53 08/01/24 13:49 Room Air 08/01/24 13:07 Room Air Diagnostic Findings EXAMINATION: CT of the abdomen and pelvis performed without contrast TECHNIQUE: Helical CT images from the lung bases through the symphysis pubis were obtained without contrast. Coronal and sagittal reformatted images were generated at a workstation for further assessment. Dose reduction techniques were achieved by using automatic exposure control and/or adjustment of mA and/or kV according to patient size and/or use of iterative reconstruction technique. COMPARISON: 08/19/2023 HISTORY: Abdominal pain FINDINGS: No evidence for bowel obstruction. No renal calculi. No ureteral calculi. No pneumoperitoneum or pneumatosis. Skin yudi within the inguinal regions. A femorofemoral bypass graft is identified. Prior cholecystectomy. Suture material again noted within the left upper quadrant involving the large bowel, with primary reanastomosis noted. There is some new mild diffuse wall thickening of the large bowel. Iypn-ec-hnnceayy stool burden. Heavy aortoiliac calcification. Adrenal glands, spleen, pancreas, and liver appear unremarkable. IMPRESSION: New mild, diffuse wall thickening of the large bowel, suggestive of colitis Electronically signed by Leonidas Daniel 08-01-2024 4:34 PM PG Care Time/CCT Total # of Minutes Spent Total Time Spent with Patient: Total time spent is greater than 50% in coordination of care (as documented) at patient's floor/unit and/or counseling patient: Coding Level of Care Code 41410 INT INP/OBS CARE 40MIN Diagnoses Colitis K52.9
[2024-08-01] MEDS: AMPICILLIN/SULBACTAM SOD 3,000 MG/100 ML BAG IV SCH (21:24)
[2024-08-01] MEDS: LORazepam 1 MG TAB PO PRN (21:30)
[2024-08-01] MEDS: GABAPENTIN 100 MG CAP PO SCH (21:30)
[2024-08-01] MEDS: APIXABAN 5 MG TABLET PO SCH (21:31)
[2024-08-01] MEDS: traZODone HCL 50 MG TAB PO SCH (21:31)
[2024-08-01] MEDS: PANTOprazole 40 MG TAB PO SCH (21:31)
[2024-08-01] MEDS: ONDANSETRON INJ 2 MG/ML 2 ML VIAL IV PRN (21:35)
[2024-08-02] MEDS: ACETAMINOPHEN 325 MG TAB PO PRN (03:37)
--- OUTSIDE RECORDS SUMMARY | 2024-08-02 04:49 | External Medical Summary | Summary of Care ---
Author Name Unknown Organization [facility] Address [address] [place] [address] Phone [phone] Care Team Providers Care Deputy K 9 Name Role Phone Tom Daniel DO Primary Care Provider Reason for Visit * Reason Comments eRx-Medication Refill Encounter Details Date Type Department Care Team (Late st Contact Info) Description 07/02/2024 Refill Family Practice [facility] [address] [place] [id number] Tom Daniel DO [address] [place] [id number] Migraine without aura and without status migrainosus, not intractable; GERD (gastroesophageal reflux disease) Allergies Active Allergy Reactions Criticality Noted Date Comments Benzyl Alcohol Anaphylaxis High 10/16/2011 Furosemide Itching 10/16/2011 Iodinated Contrast Media High 10/10/2023 Iodine Itching 10/16/2011 Allergy as per patient with itching. Lisinopril Chills/rigors High 01/29/2012 Prochlorperazine Anaphylaxis,Edema airway High 10/16/2011 Promethazine Anaphylaxis High 10/16/2011 Angioedema Saccharin Anaphylaxis High 10/16/2011 Simvastatin Itching 10/16/2011 documented as of this encounter (statuses as of 07/04/2024) Medications Medication Sig Dispensed Refills Start Date End Date Status LORAZEPAM 1 MG PO TABSIndications: Pt also taking 1 tab in evening. Take 1 Tablet by mouth in the morning and 1 Tablet at noon and 1 Tablet before bedtime. Active NITROGLYCERIN 0.4 MG SL SUBLIndications: Chronic coronary artery disease,S/P coronary artery bypass with four autogenous grafts as needed 25 Tab 5 10/16/2011 Active Additional Information Patient not taking.Reported on 05/08/2024 ondansetron (ZOFRAN) 8 MG Tablet Take 1 Tablet by mouth in the morning. 0 07/07/2015 Active fluticasone (FLONASE) 50 MCG/ACT nasal spray Administer 2 Sprays into each nostril in the morning. 2 08/13/2017 Active isosorbide mononitrate SA (IMDUR) 30 MG TB24 Take 1 Tablet by mouth in the morning. Active Metoprolol Succinate ER 50 MG Oral Tablet Extended Release 24 Hour (toPROL XL) Take 1 Tablet by mouth in the morning. In the morning.. 06/17/2022 Active Eliquis 5 MG Oral Tablet Take 1 Tablet by mouth in the morning and 1 Tablet before bedtime. 08/17/2022 Active Spironolactone 50 MG Oral Tablet (Aldactone) Take 1 Tablet by mouth in the morning and 1 Tablet before bedtime. 08/18/2022 Active Losartan Potassium 100 MG Oral Tablet (Cozaar) Take 1 Tablet by mouth at bedtime. 11/22/2022 Active Pravastatin Sodium 40 MG Oral Tablet (Pravachol)Indic ations:Coronary artery disease involving autologous vein coronary bypass graft without angina pectoris TAKE 1 TABLET BY MOUTH EVERYDAY AT BEDTIME 90 Tablet 3 01/04/2024 Active Vitamin D 25 MCG (1000 UT) Oral Tablet Take 1 Tablet by mouth in the morning. 30 Tablet 11 01/11/2024 Active traZODone HCl 150 MG Oral Tablet (Desyrel) Take 1 Tablet by mouth at bedtime. 01/01/2024 Active Iron Dextran 50 MG/ML Injection Solution (Infed) Administer 50 mg intravenously. Receives infusions for 3 weeks, three times a year. 07/17/2023 Active predniSONE 20 MG Oral Tablet (Deltasone) Take 1 Tablet by mouth in the morning. 40 mg daily for 5 days, prescribed by [facility]. 05/06/2024 Active HYDROcodone-Acet aminophen 5-325 MG Oral TabletIndication s:Compression fracture of lumbar vertebra, unspecified lumbar vertebral level, initial encounter ([facility]) Take 1 Tablet by mouth every 6 hours as needed for Pain, Mild. 15 Tablet 05/30/2024 Active Albuterol Sulfate HFA 108 (90 Base) MCG/ACT Inhalation Aerosol SolutionIndicati ons:COPD, severity to be determined ([facility]) INHALE 2 PUFFS EVERY 4 HOURS NEEDED FOR SHORTNESS OF BREATH 18 g 3 06/04/2024 Active Calcitonin (Squire) 200 UNIT/ACT Nasal Solution (Fortical)Indica tions:Compressio n fracture of lumbar vertebra, unspecified lumbar vertebral level, initial encounter ([facility]) Administer 1 Volcano into one nostril in the morning. alternate nostrils.. 3 mL 11 06/26/2024 Active Gabapentin 800 MG Oral Tablet (Neurontin)Indic ations:Migraine without aura and without status migrainosus, not intractable TAKE 1 TABLET BY MOUTH IN THE MORNING, AT NOON, IN THE EVENING, AND BEFORE BEDTIME. 360 Tablet 3 07/04/2024 Active Omeprazole 40 MG Oral Capsule Delayed Release (PriLOSEC)Indica tions:GERD (gastroesophagea l reflux disease) TAKE 1 CAPSULE BY MOUTH IN THE MORNING AND BEFORE BEDTIME 180 Capsule 1 07/03/2024 Active Gabapentin 800 MG Oral Tablet (Neurontin)Indic ations:Migraine without aura and without status migrainosus, not intractable TAKE 1 TABLET BY MOUTH IN THE MORNING, NOON, EVENING, AND BEFORE BEDTIME. 360 Tablet 3 07/02/2023 07/04/20 24 Discontinued Omeprazole 40 MG Oral Capsule Delayed Release (PriLOSEC)Indica tions:GERD (gastroesophagea l reflux disease) TAKE 1 CAPSULE BY MOUTH IN THE MORNING AND BEFORE BEDTIME 180 Capsule 1 03/31/2024 07/03/20 24 Discontinued documented as of this encounter (statuses as of 07/04/2024) Active Problems Problem Noted Date Diagnosed Date Peripheral arterial disease 08/24/2023 S/P femoral-popliteal bypass surgery 08/24/2023 B12 deficiency 08/22/2022 Overview: Last Assessment & Plan: Level good. Continue IM B12 as she has been. Dyslipidemia, goal LDL below 100 08/22/2022 Overview: Last Assessment & Plan: Controlled. COntinue current meds. Iron deficiency anemia, unspecified 08/22/2022 Overview: Last Assessment & Plan: Stable. 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 HTN, goal to be determined 11/24/2011 Backache 11/24/2011 Chronic coronary artery disease 10/16/2011 S/P coronary artery bypass with four autogenous grafts 10/16/2011 Anemia 10/16/2011 Tobacco use disorder 10/16/2011 Anxiety disorder 10/16/2011 documented as of this encounter (statuses as of 07/04/2024) Social History Tobacco Use Types Packs/Day Years Used Date Smoking Tobacco: Every Day Cigarettes 4 45 Started: 09/26/1966; Last attempted to quit: 09/26/2011 Smokeless Tobacco: Never Comments:Occasionally uses e -cigarettes Alcohol Use Standard Drinks/Week Comments No 0 (1 standard drink = 0.6 oz pur e alcohol) Utilities Answer Date Recorded Do you have trouble paying y our heating, water, or electric bill? (Adult - for ages 18 years and over) Not on file 03/04/2024 Is your family able to pay t he heat, water, or electric bill? (Household - for ages 0-17 years) Not on file 03/04/2024 Does your family have access to good internet? (Household - for ages 0-17 years) Not on file 03/04/2024 Social Connections Answer Date Recorded How often do you feel lonely or isolated from those around you? (Adult - for ages 18 years and over) Not on file 03/04/2024 Sex and Gender Information Value Date Recorded Sex Assigned at Not on file Gender Identity Not on file Sexual Orientation Not on file Job Start Date Occupation Industry Not on file Not on file Not on file documented as of this encounter Miscellaneous Notes * Telephone Encounter - Tom Daniel DO - 07/04/2024 9:48 AM EDT Signed Prescriptions: Disp Refills Gabapentin 800 MG Oral Tablet (Neurontin) 360 Ta*3 Sig: TAKE 1 TABLET BY MOUTH IN THE MORNING, AT NOON, IN THE EVENING, AND BEFORE BEDTIME. Authorizing Provider: TOM DANIEL Omeprazole 40 MG Oral Capsule Delayed Rele*180 Ca*1 Sig: TAKE 1 CAPSULE BY MOUTH IN THE MORNING AND BEFORE BEDTIME Authorizing Provider: TOM DANIEL Ordering User: ALEXANDRA GUZMAN * Telephone Encounter - Alexandra Guzman [facility] - 07/03/2024 4:55 PM EDTPending Prescriptions: Disp Refills Gabapentin 800 MG Oral Tablet (Neurontin) 360 Ta*3 Sig: TAKE 1 TABLET BY MOUTH IN THE MORNING, AT NOON, IN THE EVENING, AND BEFORE BEDTIME. Signed Prescriptions: Disp Refills Omeprazole 40 MG Oral Capsule Delayed Rele*180 Ca*1 Sig: TAKE 1 CAPSULE BY MOUTH IN THE MORNING AND BEFORE BEDTIME Au thorizing Provider: TOM DANIEL Ordering User: ALEXANDRA GUZMAN * Telephone Encounter - Alexandra Guzman [facility] - 07/03/2024 4:51 PM EDT [facility] is currently not authorized to approve refills for the pended medication(s) per refill protocol. Please approve if appropriate. Pending Prescriptions: Disp Refills Gabapentin 800 MG Oral Tablet (Neurontin)*360 Ta*3 Sig: TAKE 1 TABLET BY MOUTH IN THE MORNING, AT NOON, IN THE EVENING, AND BEFORE BEDTIME. Last Visit: 05/08/2024 (in office), Visit date not found (telemedicine) Next Visit: Visit date not found If no future appointments scheduled, and last appointment is greater than a year ago, please schedule patient for a follow-up appointment Last date the medication was ordered: 07/02/23 Pharmacy: [id number] [address] [facility] Is this request for a controlled substance? No Urine Drug Screen:No results found for this or any previous visit. Patient Phone Numbers Labs: Lab Results Component Value Date/Time CREAT 0.7 10/11/2023 11:27 AM CREAT 0.53 (A) 06/17/2022 12:00 AM CREAT 0.8 05/07/2014 04:20 PM POTASSIUM 4.4 10/11/2023 11:27 AM POTASSIUM 3.4 (A) 06/17/2022 12:00 AM POTASSIUM 4.4 05/07/2014 04:20 PM LDL 41 10/11/2023 11:27 AM ALT 15 10/11/2023 11:27 AM ALT 24 12/19/2011 05:17 PM HGBA1C 5.9 (H) 10/11/2023 11:27 AM HGBA1C 6.1 (A) 06/17/2022 12:00 AM HGBA1C 5.7 11/10/2019 12:00 AM Thank you, Alexandra Guzman, PharmD Clinical Pharmacist [facility] 07/03/24 4:54 PM [phone] documented in this encounter Plan of Treatment Upcoming Encounters Date Type Department Care Team (Late st Contact Info) Description 07/10/2024 1:30 PM EDT [facility] [address] [place] [id number] Poly Escamilla MD [address] [place] [id number] Health Maintenance Due Date Last Done Comments DISCUSS TOBACCO CESSATION (REFER TO SMARTSET #[id number]) 1954 Pneumococcal Vaccine: 65+ Years (1 of 2 - PCV) 1960 Depression Screening 1966 Albumin/Creatinine Ratio 1972 Alpha-1 Antitrypsin 1972 Diabetic Eye Exam 1972 Hepatitis C Screening 1972 DTap/Tdap Vaccines (1 - Tdap) 1973 Cologuard 12/31/1999 Fecal Occult Blood Test 12/31/1999 Sigmoidoscopy 12/31/1999 Zoster Vaccines (1 of 2) 2004 DXA Scan 09/18/2020 09/18/2018, 10/10/2016 Adult Wellness Visit 2020 Mammogram 04/05/2023 04/05/2022, 11/16, 04/07/2015 Diabetic Foot Exam 06/16/2023 06/16/2022 HbA1c 04/10/2024 10/11/2023, 12/0 02/2022, 06/17/2022, Additional history exists COVID-19 Vaccine ( - season) 2024 Influenza Vaccine (FLU shot) (#1) 2024 GFR 10/11/2024 10/11/2023, 12/0 02/2022, 06/17/2022, Additional history exists O2 ASSESSMENT COMPLETED IN PAST YEAR FOR COPD 05/08/2025 05/08/2024 Colonoscopy 11/06/2032 11/06/2022, 03/02/2022 Colorectal Cancer Screening 11/06/2032 Lung Cancer Screening Completed 01/03/2012 VITAMIN D LEVEL ONCE IN A LIFETIME-USE SMARTSET# [id number] Completed 01/10/2024, 10/11/2023, 12/02/2021, Additional history exists HPV (Gardasil) Vaccine Aged Out No lo nger eligible based on patient's age to complete this topic Hepatitis B Vaccine Aged Out No longe r eligible based on patient's age to complete this topic MENINGOCOCCAL (MENACTRA/MENVEO) Aged Out No longer eligible based on patient's age to complete this topic documented as of this encounter Medical Devices Implanted Type Area Blending Line Attendant Device Identifier Shelf Expiration Date Model / Serial / Lot Graft Marker Coronary - [id number] Implanted:Qty: 1 on 01/15/2012 at OR [facility] N/A: Aorta VM CARDIO VASCULAR 04/16/2014 [id number] / / [id number] Sut Steel 6 M654g - [id number] Implanted:Qty: 6 on 01/15/2012 at OR [facility] N/A: Chest DO NOT USE 10/17/2016 M654G / / [id number] Sut Steel 6 M654g - [id number] Implanted:Qty: 2 on 01/15/2012 at OR [facility] N/A: Chest DO NOT USE 10/17/2016 M654G / / [id number] Graft Marker Coronary - [id number] Implanted:Qty: 1 on 01/15/2012 at OR [facility] N/A: Aorta VM CARDIO VASCULAR 08/16/2013 [id number] / / [id number] Lens Intraoc 15.5 - [id number] - [id number] Implanted:Qty: 1 on 10/21/2019 by Tay Acevedo MD at OR [facility] Left: Eye BAUSCH & LOMB 01/15/2024 [id number] / [id number] / Lens Intraoc 16.0 - [id number] - [id number] Implanted:Qty: 1 on 11/04/2019 by Tay Acevedo MD at OR [facility] Right: Eye BAUSCH & LOMB 05/17/2024 [id number] / [id number] / documented as of this encounter Visit Diagnoses Diagnosis Migraine without aura and without status migrainosus, not intractable Migraine without aura, without mention of intractable migraine without mention of status migrainosus GERD (gastroesophageal reflux disease) Esophageal reflux documented in this encounter Advance Directives * Full Code (Latest Code Status on File) Date Activated Date Inactivated Comments 01/15/2012 3:49 PM 01/20/2012 4:10 PM This order re flects the patients wishes and were consensually agreed upon. Care Teams Deputy K 9 Relationship Specialty Start Date End Date Tom Daniel DO [address] [place] [id number] PCP - General Family Medicine 08/22/22 documented as of this encounter
--- OUTSIDE RECORDS SUMMARY | 2024-08-02 04:49 | External Medical Summary | Summary of Care ---
Author Name Unknown Organization [facility] Address [address] [place] [address] Phone [phone] Care Team Providers Care Job Tracer Name Role Phone Akbar Daniel DO Primary Care Provider Reason for Visit * Reason Comments Back Pain Midline low back ronen n constant dull/achy/sharp. denies radiating denies numbness/tingling/burning x 1-1.5 months injury picking up grandson in Apr. L3 compression fracture. * Evaluate & Treat - Unlimited Visits (Within 3 days (urgent)) - Authorized Specialty Diagnoses / Procedures Referred By Contac t Referred To Contact Pain Management / Pain Medicine Diagnoses Compression fracture of lumbar vertebra, unspecified lumbar vertebral level, initial encounter (HCC) [facility]bar [facility] DO [address] [facility] [address] Referral ID Status Reason Start Date Expiration Date Visits Requested Visits Authorized [id number] Authorized Specialty Services Required 05/08/[phone] Encounter Details Date Type Department Care Team (Late st Contact Info) Description 07/10/2024 1:30 PM EDT Office Visit [facility], [facility] [address] [facility] [place] [address] Poly Escamilla MD [address] [place] [id number] Compression fracture of L3 lumbar vertebra, sequela* Allergies Active Allergy Reactions Criticality Noted Date Comments Benzyl Alcohol Anaphylaxis High 10/16/2011 Furosemide Itching 10/16/2011 Iodinated Contrast Media High 10/10/2023 Iodine Itching 10/16/2011 Allergy as per patient with itching. Lisinopril Chills/rigors High 01/29/2012 Prochlorperazine Anaphylaxis,Edema airway High 10/16/2011 Promethazine Anaphylaxis High 10/16/2011 Angioedema Saccharin Anaphylaxis High 10/16/2011 Simvastatin Itching 10/16/2011 documented as of this encounter (statuses as of 07/10/2024) Medications Medication Sig Dispensed Refills Start Date End Date Status LORAZEPAM 1 MG PO TABSIndications:Pt also taking 1 tab in evening. Take 1 Tablet by mouth in the morning and 1 Tablet at noon and 1 Tablet before bedtime. Active NITROGLYCERIN 0.4 MG SL SUBLIndications:Ch ronic coronary artery disease,S/P coronary artery bypass with four autogenous grafts as needed 25 Tab 5 10/16/2011 Active ondansetron (ZOFRAN) 8 MG Tablet Take 1 [...] Active Pravastatin Sodium 40 MG Oral Tablet (Pravachol)Indicat ions:Coronary artery disease involving autologous vein coronary bypass [...] mg daily for 5 days, prescribed by Sabino PAULINO. 05/06/2024 Active HYDROcodone-Acetam inophen 5-325 MG Oral TabletIndications: Compression fracture of lumbar vertebra, unspecified lumbar vertebral level, initial encounter ([facility]) Take 1 Tablet by mouth every 6 hours as needed for Pain, Mild. 15 Tablet 05/30/2024 Active Additional Information Patient not taking.Reported on 07/10/2024 Albuterol Sulfate HFA 108 (90 Base) MCG/ACT Inhalation Aerosol SolutionIndication s:COPD, severity to be determined ([facility]) INHALE 2 PUFFS EVERY 4 HOURS NEEDED FOR SHORTNESS OF BREATH 18 g 3 06/04/2024 Active Calcitonin ([place]) 200 UNIT/ACT Nasal Solution (Fortical)Indicati ons:Compression fracture of lumbar vertebra, unspecified lumbar vertebral level, initial encounter ([facility]) Administer 1 Nenzel into one nostril in the morning. alternate nostrils.. 3 mL 11 06/26/2024 Active Gabapentin 800 MG Oral Tablet (Neurontin)Indicat ions:Migraine without aura and without status migrainosus, not intractable TAKE 1 TABLET BY MOUTH IN THE MORNING, AT NOON, IN THE EVENING, AND BEFORE BEDTIME. 360 Tablet 3 07/04/2024 Active Omeprazole 40 MG Oral Capsule Delayed Release (PriLOSEC)Indicati ons:GERD (gastroesophageal reflux disease) TAKE 1 CAPSULE BY MOUTH IN THE MORNING AND BEFORE BEDTIME 180 Capsule 1 07/03/2024 Active documented as of this encounter (statuses as of 07/10/2024) Active Problems Problem Noted Date Diagnosed Date [...] as of this encounter (statuses as of 07/10/2024) Social History Tobacco Use Types Packs/Day Years [...] on file documented as of this encounter Progress Notes * Poly Escamilla MD - 07/10/2024 1:41 PM EDT Subjective: Thank you for the opportunity to see your patient. As you know Sierra Wang is a 68 year old female who presents to our clinic with a chief complaint of Back Pain (Midline low back pain constant dull/achy/sharp. denies radiating denies numbness/tingling/burning x 1-1.5 months injury picking up grandson in Apr. /L3 compression fracture. ) She states the acute onset of axial low back pain in April when picking up her then 3 ear old grandson. Says the pain sent her to the floor. Went to the ED and was diagnostic with L3 compression fracture. She did not want to see a surgeon so was referred to our clinic for further evaluation. Denies progressive motor weakness or numbness. No saddle anesthesia. Pain increases with standing, bending forward, twisting, lifting. Has relief with rest. Does feel that she has been slowly improving. The patient is is able to do their ADLs. Providers: PCP: Akbar Daniel DO Referring provider: Akbar Daniel, * Investigations performed: No images available for my review, but CT report 05/13/24 shows L3 compression fracture with 10% height loss. No retropulsion. Medications and Allergies: Current Outpatient Medications Medication Instructions Albuterol Sulfate HFA 108 (90 Base) MCG/ACT Inhalation Aerosol Solution INHALE 2 PUFFS EVERY 4 HOURS NEEDED FOR SHORTNESS OF BREATH calcitonin-salmon (FORTICAL) 200 Units, One Nostril, Daily(AM), alternate nostrils. Eliquis 5 mg, Oral, BID (.AM/PM) fluticasone (FLONASE) 50 MCG/ACT nasal spray 2 Sprays, Daily(AM) Gabapentin 800 MG Oral Tablet (Neurontin) TAKE 1 TABLET BY MOUTH IN THE MORNING, AT NOON, IN THE EVENING, AND BEFORE BEDTIME. HYDROcodone-Acetaminophen 5-325 MG Oral Tablet 1 Tablet, Oral, Q6H PRN Iron Dextran (INFED) 50 mg, Intravenous, Receives infusions for 3 weeks, three times a year. isosorbide mononitrate SA (IMDUR) 30 mg, Oral, Daily(AM) LORazepam (ATIVAN) 1 mg, Oral, TID(AM/NOON/HS) losartan (COZAAR) 100 mg, Oral, HS metoprolol succinate XL (TOPROL XL) 50 mg, Oral, Daily(AM), In the morning. NITROGLYCERIN 0.4 MG SL SUBL as needed Omeprazole 40 MG Oral Capsule Delayed Release (PriLOSEC) TAKE 1 CAPSULE BY MOUTH IN THE MORNING ANDBEFORE BEDTIME ondansetron (ZOFRAN) 8 mg, Oral, Daily(AM) Pravastatin Sodium 40 MG Oral Tablet (Pravachol) TAKE 1 TABLET BY MOUTH EVERYDAY AT BEDTIME predniSONE (DELTASONE) 20 mg, Daily(AM) Spironolactone (ALDACTONE) 50 mg, Oral, BID (.AM/PM) traZODone (DESYREL) 150 mg, Oral, HS Vitamin D 1,000 Units, Oral, Daily(AM) Review of patient's allergies indicates: Allergen Reactions Benzyl Alcohol Anaphylaxis Iodinated Contrast Media Lisinopril Chills/rigors Prochlorperazine Anaphylaxis and Edema airway Promethazine Anaphylaxis Angioedema Saccharin Anaphylaxis Furosemide Itching Iodine Itching Allergy as per patient with itching. Simvastatin Itching Past Medical History: Past Medical History: Diagnosis Date Anxiety CAD (coronary artery disease) Chronic anemia Gastric ulcer Smoker Type II or unspecified type diabetes mellitus with neurological manifestations, not stated as uncontrolled(250.60) (HCC) Past Surgical History: Past Surgical History: Procedure Laterality Date CABG, ARTERIAL, SINGLE 01/15/2012 CORONARY ARTERY BYPASS GRAFT USING ARTERY 1 GRAFT performed [place] JOHN ERWIN [place] [facility] [place] ([facility] ONLY) small bowel resection REMOVAL OF APPENDIX 23 years ago REMOVE CATARACT, INSERT LENS PROSTH Left 10/21/2019 left EXTRACAPSULAR CATARACT REMOVAL WITH INTRAOCULAR LENS performed by Tay Acevedo MD at OR [facility] REMOVE CATARACT, INSERT LENS PROSTH Right 11/04/2019 right EXTRACAPSULAR CATARACT REMOVAL WITH INTRAOCULAR LENS performed by Tay Acevedo MD at OR [facility] REMOVE GALLBLADDER 25 years ago REMOVE PANCREAS, PARTIAL ([place]) REMOVE STOMACH, PARTIAL REMOVE TONSILS & ADENOIDS, AGE 12+ REPAIR CORONARY ARTERY, GRAFT CABG 8 yrs ago Family History: No family history on file. Social History: Social History Socioeconomic History Marital status: Spouse name: Not on file Number of children: Not on file Years of education: Not on file Highest education level: Not on file Occupational History Not on file Tobacco Use Smoking status: Every Day Current packs/day: 0.00 Average packs/day: 4.0 packs/day for 45.0 years (180.0 ttl pk-yrs) Types: Cigarettes Start date: 09/26/1966 Last attempt to quit: 09/26/2011 Years since quittin.7 Smokeless tobacco: Never Tobacco comments: Occasionally uses e-cigarettes Substance and Sexual Activity Alcohol use: No Drug use: No Sexual activity: Not on file Other Topics Concern Not on file Social History Narrative Not on file Social Determinants of Health Financial Resource Strain: Not on file Food Insecurity: Not on file Transportation Needs: Not on file Social Connections: Unknown (03/04/2024) Social Connections How often do you feel lonely or isolated from those around you? (Adult - for ages 18 years and over): Not on file Housing Stability: Not on file ROS: A comprehensive ROS was peformed and negative except as stated above. Objective: There were no vitals filed for this visit. GENERAL APPEARANCE: Well-developed, well-nourished, in no acute distress. HEENT: Normocephalic and atraumatic. No scleral icterus. Pupils are equal.No conjunctival injectionis noted. LUNGS: Symmetric. No wheezes, rhonchi, or rales appreciated HEART: Regular rate and rhythm. ABDOMEN: Non-tender, non-distended. Bowel sounds are present. EXTREMITIES: No cyanosis, clubbing, or edema. NEUROLOGIC: Gait is normal. Cranial nerves II through XII are grossly intact. PSYCHIATRIC: The patient is awake, alert, and oriented x3. Appropriate mood and affect. SKIN: Warm, dry, and well perfused. Good turgor. No lesions, nodules or rashes are noted on exposedskin. MSK: Upon initial assessment, the patient is seated in a comfortable position. Upon inspection there is not scoliosis of the thoracolumbar spine. Muscle bulk appears adequate. Palpation exam does reveal midline lumbar tenderness and does not reveal lumbar paraspinous tenderness. There is not tenderness to palpation of the sacroiliac joints bilaterally ROM lumbar spine is limited. There is discomfort with back extension and rotation bilaterally. Motor strength exam reveals: hip flexion R 5/5 L 5/5 knee extension R 5/5 L 5/5 knee flexion R 5/5 L 5/5 ankle dorsiflexion R 5/5 L 5/5 ankle plantarflexion R 5/5 L 5/5 EHL R 5/5 L 5/5 Deep tendon reflexes, 2+ patellar, 2+ Achilles, no clonus. Sensory exam is intact to light touch and sharp stimulation grossly in the bilateral upper and lower extremities. Assessment: 68 year old year-old female presents with: L3 compression fracture with ongoing low back pain Plan: Discussed natural course of the disease including the role of kyphoplasty and epidural steroid injections. Patient feels she is improving and would like to continue with non-interventional therapies which I think is reasonable. Follow Up: - None at this time. Thank you for you allowing us to participate in the care of your patient. If you have any questions, please feel free to contact us. documented in this encounter Nursing Notes * Lakeisha Garcia LPN - 07/10/2024 1:26 PM EDT Patient presents for Midline low back pain constant dull/achy/sharp. denies radiating denies numbness/tingling/burning x 1-1.5 months injury picking up grandson in Apr. L3 compression fracture. Previous Injections: spine many years ago. unknown Neck/spine Surgery: none Physical Therapy: none recent documented in this encounter Plan of Treatment Scheduled Referrals Name Type Priority Associated Diagnoses Orde r Schedule PAIN MEDICINE REFERRAL OP Referral Within 3 days (urgent) Compression fracture of lumbar vertebra, unspecified lumbar vertebral level, initial encounter (HCC) Ordered: 05/08/2024 Health Maintenance Due Date Last Done Comments DISCUSS TOBACCO CESSATION (REFER TO SMARTSET #6324) 1955 Pneumococcal Vaccine: 65+ Years (1 of [...] D LEVEL ONCE IN A LIFETIME-USE SMARTSET# [id number] Completed 01/10/2024, 10/11/2023, 12/02/2021, Additional history exists [...] this encounter Medical Devices Implanted Type Area Hospital Scientist Device Identifier Shelf Expiration Date Model / Serial / Lot Graft Marker Coronary - [id number] Implanted:Qty: 1 on 01/15/2012 [place] [facility] [place]A: Aorta VM CARDIO VASCULAR 04/16/2014 [id number] / / [id number] Sut Steel 6 M654g - [id number] Implanted:Qty: 6 on 01/15/2012 at [place] [facility] [place]/A: Chest DO NOT USE 10/17/2016 [id number] / / [id number] Sut Steel 6 M654g - [id number] Implanted:Qty: 2 on 01/15/2012 at [place] [facility] N/A: Chest DO NOT USE 10/17/2016 [id number] / / [id number] Graft Marker Coronary - [id number] Implanted:Qty: 1 on 01/15/2012 at [place] [facility] N/A: Aorta VM CARDIO VASCULAR 08/16/2013 [id number] / / [id number] Lens Intraoc 15.5 - [id number] - [id number] Implanted:Qty: 1 on 10/21/2019 by Tay Acevedo MD at OR [facility] Left: Eye BAUSCH & LOMB 01/15/2024 [id number] / [id number] / Lens Intraoc 16.0 - [id number] - [id number] Implanted:Qty: 1 on 11/04/2019 by Tay Acevedo MD at OR [facility] Right: Eye BAUSCH & LOMB 05/17/2024 [id number] / [id number] / documented as of this encounter Visit Diagnoses Diagnosis Compression fracture of L3 lumbar vertebra, sequela- Primary documented in this encounter Advance Directives * Full Code (Latest Code Status on File) Date Activated Date Inactivated Comments 01/15/2012 3:49 PM 01/20/2012 4:10 PM This order re flects the patients wishes and were consensually agreed upon. Care Teams Job Tracer Relationship Specialty Start Date End Date Akbar Daniel DO [address] [place] [address] PCP - General Family Medicine 08/22/22 documented as of this encounter
--- OUTSIDE RECORDS SUMMARY | 2024-08-02 04:50 | External Medical Summary | Summary of Care ---
Author Name Unknown Organization [facility] Address [address] [place] [address] Phone [phone] Care Team Providers Care Cap Sewer Name Role Phone Tom Daniel DO Primary Care Provider Reason for Visit * Reason Onset Date Comments Medication Refill 06/02/2024 Encounter Details Date Type Department Care Team (Late st Contact Info) Description 06/02/2024 Refill [facility] [address] [place] [place] [address] Tom Daniel DO [address] [place] [address] Compression fracture of lumbar vertebra, unspecified lumbar vertebral level, initial encounter ([facility]) Allergies Active Allergy Reactions Criticality Noted Date Comments Benzyl Alcohol Anaphylaxis High 10/16/2011 Furosemide Itching 10/16/2011 Iodinated Contrast Media High 10/10/2023 Iodine Itching 10/16/2011 Allergy as per patient with itching. Lisinopril Chills/rigors High 01/29/2012 Prochlorperazine Anaphylaxis,Edema airway High 10/16/2011 Promethazine Anaphylaxis High 10/16/2011 Angioedema Saccharin Anaphylaxis High 10/16/2011 Simvastatin Itching 10/16/2011 documented as of this encounter (statuses as of 06/03/2024) Medications Medication Sig Dispensed Refills Start Date End Date Status LORAZEPAM 1 MG PO TABSIndications:P t also taking 1 tab in evening. Take 1 Tablet by mouth in the morning and 1 Tablet at noon and 1 Tablet before bedtime. Active NITROGLYCERIN 0.4 MG SL SUBLIndications:C hronic coronary artery disease,S/P coronary artery bypass with four autogenous grafts as needed 25 Tab 5 10/16/2011 Active Additional Information Patient not taking.Reported on 05/08/2024 ondansetron (ZOFRAN) 8 MG Tablet Take 1 Tablet by mouth in the morning. 0 07/07/2015 Active fluticasone (FLONASE) 50 MCG/ACT nasal spray Administer 2 Sprays into each nostril in the morning. 2 08/13/2017 Active albuterol (VENTOLIN HFA) 108 (90 BASE) MCG/ACT inhalerIndication s:COPD, severity to be determined (HCC) INHALE 2 PUFFS EVERY 4 HOURS NEEDED FOR SHORTNESS OF BREATH 18 Inhaler 6 09/12/2018 Active isosorbide mononitrate SA (IMDUR) 30 MG [...] Tablet by mouth at bedtime. 11/22/2022 Active Gabapentin 800 MG Oral Tablet (Neurontin)Indica tions:Migraine without aura and without status migrainosus, not intractable TAKE 1 TABLET BY MOUTH IN THE MORNING, NOON, EVENING, AND BEFORE BEDTIME. 360 Tablet 3 07/02/2023 Active Pravastatin Sodium 40 MG Oral Tablet (Pravachol)Indica tions:Coronary artery disease involving autologous vein coronary bypass [...] weeks, three times a year. 07/17/2023 Active Omeprazole 40 MG Oral Capsule Delayed Release (PriLOSEC)Indicat ions:GERD (gastroesophageal reflux disease) TAKE 1 CAPSULE BY MOUTH IN THE MORNING AND BEFORE BEDTIME 180 Capsule 1 03/31/2024 Active predniSONE 20 MG Oral Tablet (Deltasone) Take 1 Tablet by mouth in the morning. 40 mg daily for 5 days, prescribed by [facility]. 05/06/2024 Active HYDROcodone-Aceta minophen 5-325 MG Oral TabletIndications :Compression fracture of lumbar vertebra, unspecified lumbar vertebral level, initial encounter ([facility]) Take 1 Tablet by mouth every 6 hours as needed for Pain, Mild. 15 Tablet 05/30/2024 Active Calcitonin ([place]) 200 UNIT/ACT Nasal Solution (Fortical)Indicat ions:Compression fracture of lumbar vertebra, unspecified lumbar vertebral level, initial encounter ([facility]) Administer 1 [place] into one nostril in the morning. alternate nostrils.. 3 mL 11 06/03/2024 Active Calcitonin ([place]) 200 UNIT/ACT Nasal Solution (Fortical)Indicat ions:Compression fracture of lumbar vertebra, unspecified lumbar vertebral level, initial encounter ([facility]) Administer 1 [place] into one nostril in the morning. alternate nostrils.. 3 mL 11 05/08/2024 4 Discontinue d(Refill) documented as of this encounter (statuses as of 06/03/2024) Active Problems Problem Noted Date Diagnosed Date [...] as of this encounter (statuses as of 06/03/2024) Social History Tobacco Use Types Packs/Day Years [...] Telephone Encounter - Tom Daniel DO - 06/03/2024 12:34 PM EDT Signed Prescriptions: Disp Refills Calcitonin ([place]) 200 UNIT/ACT Nasal Lashonda*3 mL 11 Sig: Administer 1 [place] into one nostril in the morning. alternate nostrils.. Authorizing Provider: TOM DANIEL * Telephone Encounter - Mago Tineo LPN - 06/02/2024 6:18 PM EDTPending Prescriptions: Disp Refills Calcitonin ([place]) 200 UNIT/ACT Nasal Lashonda*3 mL 11 Sig: Administer 1 [place] into one nostril in the morning. alternate nostrils.. * Telephone Encounter - Edith Pickens OSA - 06/02/2024 11:03 AM EDT Did you pend patient's preferred pharmacy and medication before forwarding?yes Pharmacy: [id number] [address] [place] [address] 90 day supply Pending Prescriptions: Disp Refills Calcitonin ([place]) 200 UNIT/ACT Nasal So*3 mL 11 Sig: Administer 1 [place] into one nostril in the morning. alternate nostrils.. Last Visit: 05/08/2024 (in office), Visit date not found (telemedicine) Next Visit: Visit date not found If no future appointments scheduled, and last appointment is greater than a year ago, please schedule patient for a follow-up appointment Last date the medication was ordered: 05.08.24 Is this request for a controlled substance?No Urine Drug Screen:No results found for this or any previous visit. Patient Phone Numbers thePlatform [phone] Labs: Lab Results Component Value Date/Time CREAT [...] 12:00 AM HGBA1C 5.7 11/10/2019 12:00 AM documented in this encounter Plan of Treatment Upcoming Encounters Date Type Department Care Team (Late st Contact Info) Description 07/10/2024 1:30 PM EDT Office Visit [facility], [facility] [address] [facility] [place] [address] Poly Escamilla MD [address] [place] [id number] Health Maintenance Due Date Last Done Comments DISCUSS TOBACCO CESSATION (REFER TO SMARTSET #9342) 1955 Pneumococcal Vaccine: 65+ Years (1 of 2 - PCV) 1960 Depression Screening 1966 Albumin/Creatinine Ratio 1972 Alpha-1 Antitrypsin 1972 Diabetic Eye Exam 1972 Hepatitis C Screening 1972 DTap/Tdap Vaccines (1 - Tdap) 1973 Cologuard 12/31/1999 Fecal Occult Blood Test 12/31/1999 Sigmoidoscopy 12/31/1999 Zoster Vaccines (1 of 2) 2004 DXA Scan 09/18/2020 09/18/2018, 10/10/2016 Adult Wellness Visit 2020 Mammogram 04/05/2023 04/05/2022, 03/10/2016, 04/07/2015 Diabetic Foot Exam 06/16/2023 06/16/2022 HbA1c 04/10/2024 10/11/2023, 12/0 02/2022, 06/17/2022, Additional history exists COVID-19 Vaccine ( season) 2024 Influenza Vaccine (FLU shot) (#1) 2024 GFR 10/11/2024 10/11/2023, 1202/2022, 06/17/2022, Additional history exists O2 ASSESSMENT COMPLETED IN PAST YEAR FOR COPD 05/08/2025 05/08/2024 Colonoscopy 11/06/2032 11/06/2022, 03/02/2022 Colorectal Cancer Screening 11/06/2032 Lung Cancer Screening Completed 01/03/2012 VITAMIN D LEVEL ONCE IN A LIFETIME-USE SMARTSET# 50156 Completed 01/10/2024, 10/11/2023, 12/02/2021, Additional history exists [...] this encounter Medical Devices Implanted Type Area Director Quality Assurance Device Identifier Shelf Expiration Date Model / Serial / Lot Graft Marker Coronary - [id number] Implanted:Qty: 1 on 01/15/2012 at [place] [facility] N/A: Aorta VM CARDIO VASCULAR 04/16/2014 [id number] / / [id number] Sut Steel 6 M654g - [id number] Implanted:Qty: 6 on 01/15/2012 at [place] [facility] N/A: Chest DO NOT USE 10/17/2016 M654G / / [id number] Sut Steel 6 M654g - [id number] Implanted:Qty: 2 on 01/15/2012 at [place] [facility] N/A: Chest DO NOT USE 10/17/2016 M654G / / [id number] Graft Marker Coronary - [id number] Implanted:Qty: 1 on 01/15/2012 at [place] [facility] N/A: Aorta VM CARDIO VASCULAR 08/16/2013 [id number] / / [id number] Lens Intraoc 15.5 - [id number] - [id number] Implanted:Qty: 1 on 10/21/2019 by Tay Acevedo MD at [facility] Left: Eye BAUSCH & LOMB 01/15/2024 [id number] / [id number] / Lens Intraoc 16.0 - [id number] - [id number] Implanted:Qty: 1 on 11/04/2019 by Tay Acevedo MD at OR [facility] Right: Eye BAUSCH & LOMB 05/17/2024 [id number] / [id number] / documented as of this encounter Visit Diagnoses Diagnosis Compression fracture of lumbar vertebra, unspecified lumbar vertebral level, initial encounter (HCC) documented in this encounter Advance Directives * Full Code (Latest Code Status on File) Date Activated Date Inactivated Comments 01/15/2012 3:49 PM 01/20/2012 4:10 PM This order re flects the patients wishes and were consensually agreed upon. Care Teams Cap Sewer Relationship Specialty Start Date End Date Tom Daniel DO [address] [place] [id number] PCP - General Family Medicine 08/22/22 documented as of this encounter
--- OUTSIDE RECORDS SUMMARY | 2024-08-02 04:50 | External Medical Summary | Summary of Care ---
Author Name Unknown Organization [facility] Address [address] [place] [address] Phone [phone] Care Team Providers Care Machine Sign Writer Name Role Phone Akbar Daniel DO Primary Care Provider Reason for Visit * Reason Onset Date Comments Medication Refill 05/30/2024 Encounter Details Date Type Department Care Team (Late st Contact Info) Description 05/30/2024 Refill [facility] [address] [place] [address] Akbar Daniel DO [address] [place] [address] Compression fracture of lumbar vertebra, unspecified lumbar vertebral level, initial encounter ([facility]) Allergies Active Allergy Reactions Criticality Noted Date Comments Benzyl Alcohol Anaphylaxis High 10/16/2011 Furosemide Itching 10/16/2011 Iodinated Contrast Media High 10/10/2023 Iodine Itching 10/16/2011 Allergy as per patient with itching. Lisinopril Chills/rigors High 01/29/2012 Prochlorperazine Anaphylaxis,Edema airway High 10/16/2011 Promethazine Anaphylaxis High 10/16/2011 Angioedema Saccharin Anaphylaxis High 10/16/2011 Simvastatin Itching 10/16/2011 documented as of this encounter (statuses as of 05/30/2024) Medications Medication Sig Dispensed Refills Start Date [...] mg daily for 5 days, prescribed by [facility]. 05/06/2024 Active Calcitonin ([place]) 200 UNIT/ACT Nasal Solution (Fortical)Indicat ions:Compression fracture of lumbar vertebra, unspecified lumbar vertebral level, initial encounter ([facility]) Administer 1 [place] into one nostril in the morning. alternate nostrils.. 3 mL 11 05/08/2024 Active HYDROcodone-Aceta minophen 5-325 MG Oral TabletIndications :Compression fracture of lumbar vertebra, unspecified lumbar vertebral level, initial encounter ([facility]) Take 1 Tablet by mouth every 6 hours as needed for Pain, Mild. 15 Tablet 05/30/2024 Active HYDROcodone-Aceta minophen 5-325 MG Oral TabletIndications :Compression fracture of lumbar vertebra, unspecified lumbar vertebral level, initial encounter ([facility]) Take 1 Tablet by mouth every 6 hours as needed for Pain, Mild. 30 Tablet 05/22/2024 4 Discontinue d(Refill) documented as of this encounter (statuses as of 05/30/2024) Active Problems Problem Noted Date Diagnosed Date [...] as of this encounter (statuses as of 05/30/2024) Social History Tobacco Use Types Packs/Day Years [...] encounter Miscellaneous Notes * Telephone Encounter - Keeley Walker CRNP - 05/30/2024 3:48 PM EDTSigned Prescriptions: Disp Refills HYDROcodone-Acetaminophen 5-325 MG Oral Ta*15 Tab*0 Sig: Take 1 Tablet by mouth every 6 hours as needed for Pain, Mild.Authorizing Provider: KEELEY WALKER------- * Telephone Encounter - Keeley Walker CRNP - 05/30/2024 3:46 PM EDT Short refill until PCP return * Telephone Encounter - Hugo Michele [facility] - 05/30/2024 9:41 AM EDTPending Prescriptions: Disp Refills HYDROcodone-Acetaminophen 5-325 MG Oral Ta*30 Tab*0 Sig: Take 1 Tablet by mouth every 6 hours as needed for Pain, Mild. * Telephone Encounter - Hugo Michele [facility] - 05/30/2024 9:40 AM EDT I have reviewed the patients controlled substance dispensing history in the Prescription Drug Monitoring Program in compliance with the [place] regulations before prescribing a controlled substance. PDMP checked on 05/30/2024. Pending Prescriptions: Disp Refills HYDROcodone-Acetaminophen 5-325 MG Oral T*30 Tab*0 Sig: Take 1 Tablet by mouth every 6 hours as needed for Pain, Mild. Last Visit: 05/08/2024 (in office), Visit date not found (telemedicine) Next Visit: Visit date not found Date medication was last filled: 05/22/24 Date medication is due for refill: 05/29/24 Pharmacy: [facility] [id number] Is this request for a controlled substance? Yes and Urine Drug Screen Not completed Toxicology results: No results found for this or any previous visit. Please approve if appropriate. Thank You, Hugo Robledo [facility] Clinical Pharmacist Centralized Clinical Pharmacy Services ([facility]PS) 05/30/2024, 9:40 AM * Telephone Encounter - Анна Lopez PHARM Tech - 05/30/2024 9:31 AM EDT Pt requesting HIGH PRIORITY due to being out of medication. Did you pend patient's preferred pharmacy and medication before forwarding?yes Pharmacy: [facility] [id number] Pending Prescriptions: Disp Refills HYDROcodone-Acetaminophen 5-325 MG Oral T*30 Tab*0 Sig: Take 1 Tablet by mouth every 6 hours as needed for Pain, Mild. Last Visit: 05/08/2024 (in office), Visit date not found (telemedicine) Next Visit: Visit date not found If no future appointments scheduled, and last appointment is greater than a year ago, please schedule patient for a follow-up appointment Last date the medication was ordered: 05/22/2024 Is this request for a controlled substance?Yes, What was the last refill date 05/22/2024 w/ quantity 30 and dosage 5-325 mg and Urine Drug Screen Not completed Urine Drug Screen:No results found for this [...] PM EDT Office Visit [facility] [address] [facility] [place] [address] Poly Escamilla MD [address] [facility] [place] [address] Health Maintenance Due Date Last Done Comments DISCUSS TOBACCO CESSATION (REFER TO SMARTSET #8012) 1955 Pneumococcal Vaccine: 65+ Years (1 of 2 - PCV) 1960 Depression Screening 1966 Albumin/Creatinine Ratio 1972 Alpha-1 Antitrypsin 1972 Diabetic Eye Exam 1972 Hepatitis C Screening 1972 DTap/Tdap Vaccines (1 - Tdap) 1973 Cologuard 12/31/1999 Fecal Occult Blood Test 12/31/1999 Sigmoidoscopy 12/31/1999 Zoster Vaccines (1 of 2) 2004 DXA Scan 09/18/2020 09/18/2018, 10/10/2016 Adult Wellness Visit 2020 Mammogram 04/05/2023 04/05/2022, 03/2 10/2016, 04/07/2015 Diabetic Foot Exam 06/16/2023 06/16/2022 HbA1c [...] D LEVEL ONCE IN A LIFETIME-USE SMARTSET# 19843 Completed 01/10/2024, 10/11/2023, 12/02/2021, Additional history exists [...] encounter Medical Devices Implanted Type Area Director Translation Device Identifier Shelf Expiration Date Model / Serial / Lot Graft Marker Coronary - [id number] Implanted:Qty: 1 on 01/15/2012 at OR [facility] N/A: Aorta VM CARDIO VASCULAR 04/16/2014 [id number] / / [id number] Sut Steel 6 M654g - [id number] Implanted:Qty: 6 on 01/15/2012 at OR [facility] N/A: Chest DO NOT USE 10/17/2016 M654G / / [id number] Sut Steel 6 M654g - [id number] Implanted:Qty: 2 on 01/15/2012 at OR [facility] N/A: Chest DO NOT USE 10/17/2016 M654G / / [id number] Graft Marker Coronary - [id number] Implanted:Qty: 1 on 01/15/2012 at OR [facility] N/A: Aorta VM CARDIO VASCULAR 08/16/2013 [id number] / / [id number] Lens Intraoc 15.5 - [id number] - [id number] Implanted:Qty: 1 on 10/21/2019 by Tay Acevedo MD at OR [facility] Left: Eye BAUSCH & LOMB 01/15/2024 [id number] / [id number] / Lens Intraoc 16.0 - [id number] - [id number] Implanted:Qty: 1 on 11/04/2019 by Tay Acevedo MD at OR [facility] Right: Eye BAUSCH & LOMB 05/17/2024 [id number] / [id number] / documented as of this encounter Visit Diagnoses Diagnosis Compression fracture of lumbar vertebra, unspecified lumbar vertebral level, initial encounter (HCC) documented in this encounter Advance Directives * Full Code (Latest Code Status on File) Date Activated Date Inactivated Comments 01/15/2012 3:49 PM 01/20/2012 4:10 PM This order re flects the patients wishes and were consensually agreed upon. Care Teams Machine Sign Writer Relationship Specialty Start Date End Date Akbar Daniel DO [address] [place] [id number] PCP - General Family Medicine 08/22/22 documented as of this encounter
--- OUTSIDE RECORDS SUMMARY | 2024-08-02 04:50 | External Medical Summary | Summary of Care ---
Author Name Unknown Organization [facility] Address [address] [facility] [place] [address] Phone [phone] Care Team Providers Care Shrimp Trawler Name Role Phone Tom Daniel DO Primary Care Provider Reason for Visit * Reason Onset Date Comments Medication Refill 05/20/2024 Encounter Details Date Type Department Care Team (Late st Contact Info) Description 05/20/2024 Refill [facility] [address] [place] [address] Tom Daniel DO [address] [place] [address] Compression fracture of lumbar vertebra, unspecified lumbar vertebral level, initial encounter ([facility]) Allergies Active Allergy Reactions Criticality Noted Date Comments Benzyl Alcohol Anaphylaxis High 10/16/2011 Furosemide Itching 10/16/2011 Iodinated Contrast Media High 10/10/2023 Iodine Itching 10/16/2011 Allergy as per patient with itching. Lisinopril Chills/rigors High 01/29/2012 Prochlorperazine Anaphylaxis,Edema airway High 10/16/2011 Promethazine Anaphylaxis High 10/16/2011 Angioedema Saccharin Anaphylaxis High 10/16/2011 Simvastatin Itching 10/16/2011 documented as of this encounter (statuses as of 05/22/2024) Medications Medication Sig Dispensed Refills Start Date [...] mg daily for 5 days, prescribed by [facility]. 05/06/2024 Active Calcitonin ([place]) 200 UNIT/ACT Nasal Solution (Fortical)Indicat ions:Compression fracture of lumbar vertebra, unspecified lumbar vertebral level, initial encounter ([facility]) Administer 1 [place] into one nostril in the morning. alternate nostrils.. 3 mL 11 05/08/2024 Active HYDROcodone-Aceta minophen 5-325 MG Oral TabletIndications :Compression fracture of lumbar vertebra, unspecified lumbar vertebral level, initial encounter ([facility]) Take 1 Tablet by mouth every 6 hours as needed for Pain, Mild. 30 Tablet 05/22/2024 Active HYDROcodone-Aceta minophen 5-325 MG Oral TabletIndications :Compression fracture of lumbar vertebra, unspecified lumbar vertebral level, initial encounter ([facility]) Take 1 Tablet by mouth every 6 hours as needed for Pain, Mild. 30 Tablet 05/08/2024 4 Discontinue d(Refill) documented as of this encounter (statuses as of 05/22/2024) Active Problems Problem Noted Date Diagnosed Date [...] as of this encounter (statuses as of 05/22/2024) Social History Tobacco Use Types Packs/Day Years [...] Telephone Encounter - Tom Daniel DO - 05/22/2024 1:38 PM EDT Signed Prescriptions: Disp Refills HYDROcodone-Acetaminophen 5-325 MG Oral Ta*30 Tab*0 Sig: Take 1 Tablet by mouth every 6 hours as needed for Pain, Mild. Authorizing Provider: TOM DANIEL * Telephone Encounter - Hugo Michele, [facility] - 05/22/2024 7:12 AM EDTPending Prescriptions: Disp Refills HYDROcodone-Acetaminophen 5-325 MG Oral Ta*30 Tab*0 Sig: Take 1 Tablet by mouth every 6 hours as needed for Pain, Mild. * Telephone Encounter - Hugo Michele, [facility] - 05/22/2024 7:11 AM EDT I have reviewed the patients controlled substance dispensing history in the Prescription Drug Monitoring Program in compliance with the [facility] regulations before prescribing a controlled substance. PDMP checked on 05/22/2024. Pending Prescriptions: Disp Refills HYDROcodone-Acetaminophen 5-325 MG Oral T*30 Tab*0 Sig: Take 1 Tablet by mouth every 6 hours as needed for Pain, Mild. Last Visit: 05/08/2024 (in office), Visit date not found (telemedicine) Next Visit: Visit date not found Date medication was last filled: 05/14/24 Date medication is due for refill: 05/20/24 Pharmacy: [facility] [id number] Is this request for a controlled substance? Yes and Urine Drug Screen Not completed Toxicology results: No results found for this or any previous visit. Please approve if appropriate. Thank You, Hugo Robledo [facility] Clinical Pharmacist Centralized Clinical Pharmacy Services (CCPS) 05/22/2024, 7:11 AM * Telephone Encounter - Shania Rm CPhT - 05/20/2024 10:22 AM EDT Did you pend patient's preferred pharmacy and medication before forwarding?yes Pharmacy: [id number] [facility] Pending Prescriptions: Disp Refills HYDROcodone-Acetaminophen 5-325 MG [...] appointment Last date the medication was ordered: 05/08/2024 Is this request for a controlled substance?Yes, What was the last refill date 05/08/2023 w/ [id number] and dosage 5-325mg and Urine Drug Screen Not completed Urine [...] PM EDT Office Visit [facility] [place] [address] Poly Escamilla MD [address] [place] [address] [place] [address] Health Maintenance Due Date Last Done Comments DISCUSS TOBACCO CESSATION (REFER TO SMARTSET #2733) 1955 Pneumococcal Vaccine: 65+ Years (1 of [...] Additional history exists COVID-19 Vaccine ( - 2022- season) 2024 Influenza Vaccine (FLU shot) (#1) 2024 GFR 10/11/2024 10/11/2023, 12/0 02/2022, 06/17/2022, Additional history exists O2 ASSESSMENT COMPLETED IN PAST YEAR FOR COPD 05/08/2025 05/08/2024 Colonoscopy 11/06/2032 11/06/2022, 03/02/2022 Colorectal Cancer Screening 11/06/2032 Lung Cancer Screening Completed 01/03/2012 VITAMIN D LEVEL ONCE IN A LIFETIME-USE SMARTSET# [id number] Completed 01/10/2024, 10/11/2023, 12/02/2021, Additional history exists [...] this encounter Medical Devices Implanted Type Area Bookstore Manager Device Identifier Shelf Expiration Date Model / Serial / Lot Graft Marker Coronary - [id number] Implanted:Qty: 1 on 01/15/2012 at [place] [facility] [place]/A: Aorta VM CARDIO VASCULAR 04/16/2014 [id number] / / [id number] Sut Steel 6 M654g - [id number] Implanted:Qty: 6 on 01/15/2012 at [place] [facility] [place] N/A: Chest DO NOT USE 10/17/2016 M654G / / [id number] Sut Steel 6 M654g - [id number] Implanted:Qty: 2 on 01/15/2012 at [place] [facility] [place] N/A: Chest DO NOT USE 10/17/2016 M654G / / [id number] Graft Marker Coronary - [id number] Implanted:Qty: 1 on 01/15/2012 at [place] [facility] N/A: Aorta VM CARDIO VASCULAR 08/16/2013 [id number] / / [id number] Lens Intraoc 15.5 - [id number] - [id number] Implanted:Qty: 1 on 10/21/2019 by Tay Acevedo MD at OR [facility] Left: Eye BAUSCH & LOMB 01/15/2024 [id number] / [id number] / Lens Intraoc 16.0 - [id number] - [id number] Implanted:Qty: 1 on 11/04/2019 by Tay Acevedo MD at OR [facility] Right: Eye BAUSCH & LOMB 05/17/2024 [id number] / [id number] / documented as of this encounter Visit Diagnoses Diagnosis Compression fracture of lumbar vertebra, unspecified lumbar vertebral level, initial encounter (HCC) documented in this encounter Advance Directives * Full Code (Latest Code Status on File) Date Activated Date Inactivated Comments 01/15/2012 3:49 PM 01/20/2012 4:10 PM This order re flects the patients wishes and were consensually agreed upon. Care Teams Shrimp Trawler Relationship Specialty Start Date End Date Tom Daniel DO [address] [place] [address] PCP - General Family Medicine 08/22/22 documented as of this encounter
--- OUTSIDE RECORDS SUMMARY | 2024-08-02 04:50 | External Medical Summary | Summary of Care ---
Author Name Unknown Organization [facility] Address [address] [place] [address] Phone [phone] Care Team Providers Care Joint Cutter Machine Name Role Phone Tom Daniel DO Primary Care Provider Reason for Visit * Reason Onset Date Comments Medication Refill 06/02/2024 Encounter Details Date Type Department Care Team (Late st Contact Info) Description 06/02/2024 Refill [facility] [address] [place] [address] Tom Daniel DO [address] [place] [address] COPD, severity to be determined (HCC) Allergies Active Allergy Reactions Criticality Noted Date Comments Benzyl Alcohol Anaphylaxis High 10/16/2011 Furosemide Itching 10/16/2011 Iodinated Contrast Media High 10/10/2023 Iodine Itching 10/16/2011 Allergy as per patient with itching. Lisinopril Chills/rigors High 01/29/2012 Prochlorperazine Anaphylaxis,Edema airway High 10/16/2011 Promethazine Anaphylaxis High 10/16/2011 Angioedema Saccharin Anaphylaxis High 10/16/2011 Simvastatin Itching 10/16/2011 documented as of this encounter (statuses as of 06/04/2024) Medications Medication Sig Dispensed Refills Start Date [...] days, prescribed by Sabino PAULINO. 05/06/2024 Active HYDROcodone-Aceta minophen 5-325 MG Oral TabletIndications :Compression fracture of lumbar vertebra, unspecified lumbar vertebral level, initial encounter ([facility]) Take 1 Tablet by mouth every 6 hours as needed for Pain, Mild. 15 Tablet 05/30/2024 Active Albuterol Sulfate HFA 108 (90 Base) MCG/ACT Inhalation Aerosol SolutionIndicatio ns:COPD, severity to be determined ([facility]) INHALE 2 PUFFS EVERY 4 HOURS NEEDED FOR SHORTNESS OF BREATH 18 g 3 06/04/2024 Active albuterol (VENTOLIN HFA) 108 (90 BASE) MCG/ACT inhalerIndication s:COPD, severity to be determined ([facility]) INHALE 2 PUFFS EVERY 4 HOURS NEEDED FOR SHORTNESS OF BREATH 18 Inhaler 6 09/12/2018 4 Discontinue d(Refill) documented as of this encounter (statuses as of 06/04/2024) Active Problems Problem Noted Date Diagnosed Date [...] as of this encounter (statuses as of 06/04/2024) Social History Tobacco Use Types Packs/Day Years [...] Telephone Encounter - Tom Daniel DO - 06/04/2024 9:28 AM EDT Signed Prescriptions: Disp Refills Albuterol Sulfate HFA 108 (90 Base) MCG/AC*18 g 3 Sig: INHALE 2 PUFFS EVERY 4 HOURS NEEDED FOR SHORTNESS OF BREATH Authorizing Provider: TOM DANIEL * Telephone Encounter - Leilani Reyes [facility] - 06/03/2024 2:56 PM EDTPending Prescriptions: Disp Refills Albuterol Sulfate HFA 108 (90 Base) MCG/AC*18 g 3 Sig: INHALE 2 PUFFS EVERY 4 HOURS NEEDED FOR SHORTNESS OF BREATH * Telephone Encounter - Leilani Reyes [facility] - 06/03/2024 2:56 PM EDT Last sent in 2018. Please approve if appropriate. Thanks, Leilani Reyes Clinical Pharmacist Centralized Clinical Pharmacy Services ([facility]PS) [phone] 06/03/2024, 2:56 PM * Telephone Encounter - Kelsie Griffiths [facility] - 06/02/2024 9:53 AM EDT Did you pend patient's preferred pharmacy and medication before forwarding?yes Pharmacy: [id number] [address] [place] [address] Pending Prescriptions: Disp Refills Albuterol Sulfate HFA 108 (90 Base) MCG/A*18 g 3 Sig: INHALE 2 PUFFS EVERY 4 HOURS NEEDED FOR SHORTNESS OF BREATH Last Visit: 05/08/2024 (in office), Visit date not found (telemedicine) Next Visit: Visit date not found If no future appointments scheduled, and last appointment is greater than a year ago, please schedule patient for a follow-up appointment Last date the medication was ordered: [id number] Is this request for a controlled substance?No [...] PM EDT Office Visit [facility], [facility] [address] [facility] [place] [address] Poly Escamilla MD [address] [place] [address] Health Maintenance Due Date Last Done Comments DISCUSS TOBACCO CESSATION (REFER TO SMARTSET #6941) 1955 Pneumococcal Vaccine: 65+ Years (1 of [...] (FLU shot) (#1) 2024 GFR 10/11/2024 10/11/2023, 120 02/2022, 06/17/2022, Additional history exists O2 ASSESSMENT COMPLETED IN PAST YEAR FOR COPD 05/08/2025 05/08/2024 Colonoscopy 11/06/2032 11/06/2022, 03/02/2022 Colorectal Cancer Screening 11/06/2032 Lung Cancer Screening Completed 01/03/2012 VITAMIN D LEVEL ONCE IN A LIFETIME-USE SMARTSET# [id number] Completed 01/10/2024, 10/11/2023, 12/02/2021, Additional history exists [...] this encounter Medical Devices Implanted Type Area Nylon Hot Wire Cutter Device Identifier Shelf Expiration Date Model / Serial / Lot Graft Marker Coronary - [id number] Implanted:Qty: 1 on 01/15/2012 at OR [facility] N/A: Aorta VM CARDIO VASCULAR 04/16/2014 [id number] / / [id number] Sut Steel 6 M654g - [id number] Implanted:Qty: 6 on 01/15/2012 at OR [facility] N/A: Chest DO NOT USE 10/17/2016 M654G / / [id number] Sut Steel 6 M654g - [id number] Implanted:Qty: 2 on 01/15/2012 at OR [facility] N/A: Chest DO NOT USE 10/17/2016 M654G / / [id number] Graft Marker Coronary - [id number] Implanted:Qty: 1 on 01/15/2012 at OR [facility] N/A: Aorta VM CARDIO VASCULAR 08/16/2013 [id number] / / [id number] Lens Intraoc 15.5 - [id number] - [id number] Implanted:Qty: 1 on 10/21/2019 by Tay Acevedo MD at OR [facility] Left: Eye BAUSCH & LOMB 01/15/2024 [id number] / [id number] / Lens Intraoc 16.0 - [id number] - [id number] Implanted:Qty: 1 on 11/04/2019 by Tay Acevedo MD at OR [facility] Right: Eye BAUSCH & LOMB 05/17/2024 [id number] / [id number] / documented as of this encounter Visit Diagnoses Diagnosis COPD, severity to be determined (HCC) Chronic airway obstruction, not elsewhere classified documented in this encounter Advance Directives * Full Code (Latest Code Status on File) Date Activated Date Inactivated Comments 01/15/2012 3:49 PM 01/20/2012 4:10 PM This order re flects the patients wishes and were consensually agreed upon. Care Teams Joint Cutter Machine Relationship Specialty Start Date End Date Tom Daniel DO [address] [place] [address] PCP - General Family Medicine 08/22/22 documented as of this encounter
--- OUTSIDE RECORDS SUMMARY | 2024-08-02 04:50 | External Medical Summary | Summary of Care ---
Author Name Unknown Organization [facility] [address] [facility] [address] Phone [phone] Care Team Providers Care Solar Field Service Technician Name Role Phone Akbar Daniel DO Primary Care Provider Reason for Visit * Reason Onset Date Comments Pre Cert/Prior Auth 05/12/2024 HYDROcodone- Acetaminophen 5-325 MG Oral TabletAPPROVED 05/14/24-09/15/24 Encounter Details Date Type Department Care Team (Late st Contact Info) Description 05/12/2024 Telephone Family Practice [facility] [address] [place] [address] Akbar Daniel DO [address] [place] [address] Pre Cert/Prior Auth (HYDROcodone-Acetamino. .. Allergies Active Allergy Reactions Criticality Noted Date Comments Benzyl Alcohol Anaphylaxis High 10/16/2011 Furosemide Itching 10/16/2011 Iodinated Contrast Media High 10/10/2023 Iodine Itching 10/16/2011 Allergy as per patient with itching. Lisinopril Chills/rigors High 01/29/2012 Prochlorperazine Anaphylaxis,Edema airway High 10/16/2011 Promethazine Anaphylaxis High 10/16/2011 Angioedema Saccharin Anaphylaxis High 10/16/2011 Simvastatin Itching 10/16/2011 documented as of this encounter (statuses as of 05/14/2024) Medications Medication Sig Dispensed Refills Start Date [...] albuterol (VENTOLIN HFA) 108 (90 BASE) MCG/ACT inhalerIndications :COPD, severity to be determined (HCC) INHALE 2 [...] 11/22/2022 Active Gabapentin 800 MG Oral Tablet (Neurontin)Indicat [...] mg daily for 5 days, prescribed by [facility] Stella . 05/06/2024 Active Calcitonin ([place]) 200 UNIT/ACT Nasal Solution (Fortical)Indicati ons:Compression fracture of lumbar vertebra, unspecified lumbar vertebral level, initial encounter ([facility]) Administer 1 [place] into one nostril in the morning. alternate nostrils.. 3 mL 11 05/08/2024 Active HYDROcodone-Acetam inophen 5-325 MG Oral TabletIndications: Compression fracture of lumbar vertebra, unspecified lumbar vertebral level, initial encounter ([facility]) Take 1 Tablet by mouth every 6 hours as needed for Pain, Mild. 30 Tablet 05/08/2024 Active documented as of this encounter (statuses as of 05/14/2024) Active Problems Problem Noted Date Diagnosed Date [...] as of this encounter (statuses as of 05/14/2024) Social History Tobacco Use Types Packs/Day Years [...] encounter Miscellaneous Notes * Telephone Encounter - Bushra Henning LPN - 05/14/2024 3:20 PM EDT Pt aware * Telephone Encounter - Bushra Henning LPN - 05/14/2024 3:17 PM EDT Images from the original note were not included. * Telephone Encounter - Meche Cavanaugh PHARM Tech - 05/14/2024 8:57 AM EDT Pt calling to check on status of rx. Caller can be reached at [phone]. Thanks, Meche Cavanaugh Credentialing Analyst [facility] ([facility]) 05/14/2024,8:57 AM * Telephone Encounter - Bushra Henning LPN - 05/13/2024 12:31 PM EDT PA submitted via [facility]. Quintanilla: [id number] * Telephone Encounter - Stacey Patton CPhT - 05/12/2024 10:54 AM EDT Pharmacy calling to inform doctor that the patient's insurance will not pay for this medication without a completed prior authorization. Did confirm this information with the pharmacy. Pt's current insurance information is as follows: Patient name: Sierra Wang ID number: [id number] BIN number: [id number] PCN number: [id number] Group number: N/A Subscriber name: Sierra Wang Primary or Secondary Insurance:Primary Medication: HYDROcodone-Acetaminophen 5-325 MG Oral Tablet Reason for Request: required Pharmacy and phone number: [id number] [address] [place] [address] Rx plan and phone number: ELBA Is this a new medication for the patient? Yes What alternative medications does the pharmacy have in stock?: n/a Thank you, Stacey Patton CPhT Physicist [facility] ([facility]) 05/12/2024, 10:56 AM documented in this encounter Plan of Treatment Upcoming Encounters Date Type Department Care Team (Late st Contact Info) Description 07/10/2024 1:30 PM EDT Office Visit [facility], [facility] [address] [facility] [place] [address] Poly Escamilla MD [address] [place] [address] [place] [address] Health Maintenance Due Date Last Done Comments DISCUSS TOBACCO CESSATION (REFER TO SMARTSET #9227) 1955 Pneumococcal Vaccine: 65+ Years (1 of [...] 2020 Mammogram 04/05/2023 04/05/2022, 03/2 10/2016, 04/07/2015 COVID-19 Vaccine ( - season) 2023 Diabetic Foot Exam 06/16/2023 06/16/2022 HbA1c 04/10/2024 10/11/2023, 12/0 02/2022, 06/17/2022, Additional history exists Influenza Vaccine (FLU shot) (#1) 2024 GFR 10/11/2024 10/11/2023, 12/0 02/2022, 06/17/2022, Additional history exists O2 ASSESSMENT COMPLETED IN PAST YEAR FOR COPD 05/08/2025 05/08/2024 Colonoscopy 11/06/2032 11/06/2022, 03/02/2022 Colorectal Cancer Screening 11/06/2032 Lung Cancer Screening Completed 01/03/2012 VITAMIN D LEVEL ONCE IN A LIFETIME-USE SMARTSET# [id number] Completed 01/10/2024, 10/11/2023, 12/02/2021, Additional history exists [...] this encounter Medical Devices Implanted Type Area Lacquer Shader Device Identifier Shelf Expiration Date Model / Serial / Lot Graft Marker Coronary - [id number] Implanted:Qty: 1 on 01/15/2012 at OR [facility] [place] N/A: Aorta VM CARDIO VASCULAR 04/16/2014 [id number] / / [id number] Sut Steel 6 M654g - [id number] Implanted:Qty: 6 on 01/15/2012 at OR [facility] [place] N/A: Chest DO NOT USE 10/17/2016 M654G / / [id number] Sut Steel 6 M654g - [id number] Implanted:Qty: 2 on 01/15/2012 at OR [facility] [place] N/A: Chest DO NOT USE 10/17/2016 M654G / / [id number] Graft Marker Coronary - [id number] Implanted:Qty: 1 on 01/15/2012 at OR [facility] [place] N/A: Aorta VM CARDIO VASCULAR 08/16/2013 [id number] / / [id number] Lens Intraoc 15.5 - [id number] - [id number] Implanted:Qty: 1 on 10/21/2019 by Tay Acevedo MD at OR [facility] Left: Eye BAUSCH & LOMB 01/15/2024 [id number] / [id number] / Lens Intraoc 16.0 - [id number] - [id number] Implanted:Qty: 1 on 11/04/2019 by Tay Acevedo MD at OR [facility] Right: Eye BAUSCH & LOMB 05/17/2024 [id number] / [id number] / documented as of this encounter Advance Directives * Full Code (Latest Code Status on File) Date Activated Date Inactivated Comments 01/15/2012 3:49 PM 01/20/2012 4:10 PM This order re flects the patients wishes and were consensually agreed upon. Care Teams Solar Field Service Technician Relationship Specialty Start Date End Date Akbar Daniel DO [address] [place] [address] PCP - General Family Medicine 08/22/22 documented as of this encounter
--- OUTSIDE RECORDS SUMMARY | 2024-08-02 04:50 | External Medical Summary | Summary of Care ---
Author Name Unknown Organization [facility] Address [address] [place] [address] Phone [phone] Care Team Providers Care Terrazzo Polisher Helper Name Role Phone Tom Daniel DO Primary Care Provider Reason for Visit * Reason Onset Date Comments Medication Refill 06/26/2024 Encounter Details Date Type Department Care Team (Late st Contact Info) Description 06/26/2024 Refill [facility] [address] [place] [address] Tom Daniel DO [address] [place] [address] Compression fracture of lumbar vertebra, unspecified lumbar vertebral level, initial encounter ([facility]) Allergies Active Allergy Reactions Criticality Noted Date Comments Benzyl Alcohol Anaphylaxis High 10/16/2011 Furosemide Itching 10/16/2011 Iodinated Contrast Media High 10/10/2023 Iodine Itching 10/16/2011 Allergy as per patient with itching. Lisinopril Chills/rigors High 01/29/2012 Prochlorperazine Anaphylaxis,Edema airway High 10/16/2011 Promethazine Anaphylaxis High 10/16/2011 Angioedema Saccharin Anaphylaxis High 10/16/2011 Simvastatin Itching 10/16/2011 documented as of this encounter (statuses as of 06/26/2024) Medications Medication Sig Dispensed Refills Start Date [...] vertebra, unspecified lumbar vertebral level, initial encounter ([facility]) Take 1 Tablet by mouth every 6 hours as needed for Pain, Mild. 15 Tablet 05/30/2024 Active Albuterol Sulfate HFA 108 (90 Base) MCG/ACT Inhalation Aerosol SolutionIndicatio ns:COPD, severity to be determined ([facility]) INHALE 2 PUFFS EVERY 4 HOURS NEEDED FOR SHORTNESS OF BREATH 18 g 3 06/04/2024 Active Calcitonin ([place]) 200 UNIT/ACT Nasal Solution (Fortical)Indicat ions:Compression fracture of lumbar vertebra, unspecified lumbar vertebral level, initial encounter ([facility]) Administer 1 [place] into one nostril in the morning. alternate nostrils.. 3 mL 11 06/26/2024 Active Calcitonin ([place]) 200 UNIT/ACT Nasal Solution (Fortical)Indicat ions:Compression fracture of lumbar vertebra, unspecified lumbar vertebral level, initial encounter ([facility]) Administer 1 [place] into one nostril in the morning. alternate nostrils.. 3 mL 11 06/03/2024 4 Discontinue d(Refill) documented as of this encounter (statuses as of 06/26/2024) Active Problems Problem Noted Date Diagnosed Date [...] as of this encounter (statuses as of 06/26/2024) Social History Tobacco Use Types Packs/Day Years [...] Telephone Encounter - Tom Daniel DO - 06/26/2024 6:47 PM EDT Signed Prescriptions: Disp Refills Calcitonin ([place]) 200 UNIT/ACT Nasal Lashonda*3 mL 11 Sig: Administer 1 [place] into one nostril in the morning. alternate nostrils.. Authorizing Provider: TOM DANIEL * Telephone Encounter - Mago Tineo LPN - 06/26/2024 11:57 AM EDTPending Prescriptions: Disp Refills Calcitonin ([place]) 200 UNIT/ACT Nasal Lashonda*3 mL 11 Sig: Administer 1 [place] into one nostril in the morning. alternate nostrils.. * Telephone Encounter - Daylin Grady OSA - 06/26/2024 11:40 AM EDT Did you pend patient's preferred pharmacy and medication before forwarding?yes Pharmacy: [id number] Pending Prescriptions: Disp Refills Calcitonin ([place]) 200 UNIT/ACT Nasal So*3 mL 11 Sig: Administer 1 Perry into one nostril in the morning. alternate nostrils.. Last Visit: 05/08/2024 (in office), Visit date not found (telemedicine) Next Visit: Visit date not found If no future appointments scheduled, and last appointment is greater than a year ago, please schedule patient for a follow-up appointment Last date the medication was ordered: 06/03/2024 Is this request for a controlled substance?No Urine Drug Screen:No results found for this or any previous visit. Patient Phone Numbers mobile [phone] Labs: Lab Results Component Value Date/Time CREAT [...] PM EDT Office Visit [facility] Center, [facility] 132 [facility] [place] [id number] Poly Escamilla MD [address] [place] [address] [place] [id number] Health Maintenance Due Date Last Done Comments DISCUSS TOBACCO CESSATION (REFER TO SMARTSET #5227) 1955 Pneumococcal Vaccine: 65+ Years (1 of [...] Foot Exam 06/16/2023 06/16/2022 HbA1c 04/10/2024 10/11/2023, 1202/2022, 06/17/2022, Additional history exists COVID-19 Vaccine ( season) 2024 Influenza Vaccine (FLU shot) (#1) 2024 GFR 10/11/2024 10/11/2023, 02/2022, 06/17/2022, Additional history exists O2 ASSESSMENT COMPLETED IN PAST YEAR FOR COPD 05/08/2025 05/08/2024 Colonoscopy 11/06/2032 11/06/2022, 03/02/2022 Colorectal Cancer Screening 11/06/2032 Lung Cancer Screening Completed 01/03/2012 VITAMIN D LEVEL ONCE IN A LIFETIME-USE SMARTSET# [id number] Completed 01/10/2024, 10/11/2023, 12/02/2021, Additional history exists [...] this encounter Medical Devices Implanted Type Area Curtain Stretcher Device Identifier Shelf Expiration Date Model / Serial / Lot Graft Marker Coronary - [id number] Implanted:Qty: 1 on 01/15/2012 at [place] [facility] [place] N/A: Aorta VM CARDIO VASCULAR 04/16/2014 [id number] / / [id number] Sut Steel 6 M654g - [id number] Implanted:Qty: 6 on 01/15/2012 at OR [facility] N/A: Chest DO NOT USE 10/17/2016 M654G / / [id number] Sut Steel 6 M654g - [id number] Implanted:Qty: 2 on 01/15/2012 at OR [facility] N/A: Chest DO NOT USE 10/17/2016 M654G / / [id number] Graft Marker Coronary - [id number] Implanted:Qty: 1 on 01/15/2012 at OR [facility] N/A: Aorta VM CARDIO VASCULAR 08/16/2013 [id number] / / [id number] Lens Intraoc 15.5 - [id number] - [id number] Implanted:Qty: 1 on 10/21/2019 by Tay Acevedo MD at OR [facility] Left: Eye BAUSCH & LOMB 01/15/2024 [id number] / [id number] / Lens Intraoc 16.0 - [id number] - [id number] Implanted:Qty: 1 on 11/04/2019 by Tay Acevedo MD at OR [facility] Right: Eye BAUSCH & LOMB 05/17/2024 [id number] / [id number] / documented as of this encounter Visit Diagnoses Diagnosis Compression fracture of lumbar vertebra, unspecified lumbar vertebral level, initial encounter (HCC) documented in this encounter Advance Directives * Full Code (Latest Code Status on File) Date Activated Date Inactivated Comments 01/15/2012 3:49 PM 01/20/2012 4:10 PM This order re flects the patients wishes and were consensually agreed upon. Care Teams Terrazzo Polisher Helper Relationship Specialty Start Date End Date Tom Daniel DO [address] [place] [address] PCP - General Family Medicine 08/22/22 documented as of this encounter
--- OUTSIDE RECORDS SUMMARY | 2024-08-02 04:50 | External Medical Summary | Summary of Care ---
Author Name Unknown Organization [facility] Address [address] [place] [facility] [place] [address] Phone [phone] Care Team Providers Care Content Writer Name Role Phone Akbar Daniel DO Primary Care Provider Reason for Visit * Reason Onset Date Comments Pre Cert/Prior Auth 05/12/2024 HYDROcodone- Acetaminophen 5-325 MG Oral Tablet Encounter Details Date Type Department Care Team (Late st Contact Info) Description 05/12/2024 Telephone Family Practice [facility] [address] [place] [address] Akbar Daniel DO [address] [place] [address] Pre Cert/Prior Auth (HYDROcodone-Acetamino. .. Allergies Active [...] mg daily for 5 days, prescribed by [facility]. 05/06/2024 Active Calcitonin ([place]) 200 UNIT/ACT Nasal Solution (Fortical)Indicati ons:Compression fracture of lumbar vertebra, unspecified lumbar vertebral level, initial encounter ([facility]) Administer 1 [place] into one nostril in the morning. alternate nostrils.. 3 mL 11 05/08/2024 Active HYDROcodone-Acetam inophen 5-325 MG Oral TabletIndications: Compression fracture of lumbar vertebra, unspecified lumbar vertebral level, initial encounter ([facility]) Take 1 Tablet by mouth [...] encounter Miscellaneous Notes * Telephone Encounter - Meche Cavanaugh PHARM Tech - 05/14/2024 8:57 AM EDT Pt calling to check on status of rx. Caller can be reached at [phone]. Meche Claros Communicable Disease Specialist [facility] ([facility]) 05/14/2024,8:57 AM * Telephone Encounter - Bushra Henning LPN - 05/13/2024 12:31 PM EDT PA submitted via [facility]. Quintanilla: [id number] * Telephone Encounter - Stacey Patton CPhT - 05/12/2024 10:54 AM EDT Pharmacy calling to inform doctor that the patient's insurance will not pay for this medication without a completed prior authorization. Did confirm this information with the pharmacy. Pt's current insurance information is as follows: Patient name: Sierra Wang ID number: [id number] BIN number: [id number] PCN number: [id number] Group number: N/A Subscriber name: Sierra Wang Primary or Secondary Insurance:Primary Medication: HYDROcodone-Acetaminophen 5-325 MG Oral Tablet Reason for Request: required Pharmacy and phone number: [id number] [address] [facility] Rx plan and phone number: HUMANA Is this a new medication for the patient? Yes What alternative medications does the pharmacy have in stock?: n/a Thank you, Stacey Patton CPhT Paraprofessional Aide Teacher III [facility] ([facility]) 05/12/2024, 10:56 AM documented in this encounter Plan of Treatment Upcoming Encounters Date Type Department Care Team (Late st Contact Info) Description 07/10/2024 1:30 PM EDT Office Visit Interventional [facility] Center, [facility] 132 [facility] [place] [address] Poly Escamilla MD [address] [place] [address] [place] [address] Health Maintenance Due Date Last Done Comments DISCUSS TOBACCO CESSATION (REFER TO SMARTSET #3291) 1955 Pneumococcal Vaccine: 65+ Years (1 of 2 - PCV) 1960 Depression Screening 1966 Albumin/Creatinine Ratio 1972 Alpha-1 Antitrypsin 1972 Diabetic Eye Exam 1972 Hepatitis C Screening 1972 DTap/Tdap Vaccines (1 - Tdap) 1973 Cologuard 12/31/1999 Fecal Occult Blood Test 12/31/1999 Sigmoidoscopy 12/31/1999 Zoster Vaccines (1 of 2) 2004 DXA Scan 09/18/2020 09/18/2018, 10/10/2016 Adult Wellness Visit 2020 Mammogram 04/05/2023 04/05/2022, 11/16, 04/07/2015 COVID-19 Vaccine (1 - 2022- season) 2023 Diabetic Foot Exam 06/16/2023 06/16/2022 HbA1c 04/10/2024 10/11/2023, 12/0 02/2022, 06/17/2022, Additional history exists Influenza Vaccine (FLU shot) (#1) 2024 GFR 10/11/2024 10/11/2023, 12/0 02/2022, 06/17/2022, Additional history exists O2 ASSESSMENT COMPLETED IN PAST YEAR FOR COPD 05/08/2025 05/08/2024 Colonoscopy 11/06/2032 11/06/2022, 03/02/2022 Colorectal Cancer Screening 11/06/2032 Lung Cancer Screening Completed 01/03/2012 VITAMIN D LEVEL ONCE IN A LIFETIME-USE SMARTSET# [id number] Completed 01/10/2024, 10/11/2023, 12/02/2021, Additional history exists [...] this encounter Medical Devices Implanted Type Area Podiatric Physician Device Identifier Shelf Expiration Date Model / Serial / Lot Graft Marker Coronary - [id number] Implanted:Qty: 1 on 01/15/2012 at OR [facility] N/A: Aorta VM CARDIO VASCULAR 04/16/2014 [id number] / / [id number] Sut Steel 6 M654g - [id number] Implanted:Qty: 6 on 01/15/2012 at OR [facility] N/A: Chest DO NOT USE 10/17/2016 M654G / / [id number] Sut Steel 6 M654g - [id number] Implanted:Qty: 2 on 01/15/2012 at OR [facility] N/A: Chest DO NOT USE 10/17/2016 M654G / / [id number] Graft Marker Coronary - [id number] Implanted:Qty: 1 on 01/15/2012 at OR [facility] N/A: Aorta VM CARDIO VASCULAR 08/16/2013 [id number] / / [id number] Lens Intraoc 15.5 - [id number] - [id number] Implanted:Qty: 1 on 10/21/2019 by Tay Acevedo MD at OR [facility] Left: Eye BAUSCH & LOMB 01/15/2024 [id number] / [id number] / Lens Intraoc 16.0 - [id number] - [id number] Implanted:Qty: 1 on 11/04/2019 by Tay Acevedo MD at OR [facility] Right: Eye BAUSCH & LOMB 05/17/2024 [id number] / [id number] / documented as of this encounter Advance Directives * Full Code (Latest Code Status on File) Date Activated Date Inactivated Comments 01/15/2012 3:49 PM 01/20/2012 4:10 PM This order re flects the patients wishes and were consensually agreed upon. Care Teams Content Writer Relationship Specialty Start Date End Date Akbar Daniel DO [address] [place] [address] PCP - General Family Medicine 08/22/22 documented as of this encounter
--- NOTE | 2024-08-02 06:52 | Surgery Progress Note ---
Date of Service August 02, 2024 Assessment & Plan (1) Colitis: Plan: Patient overnight had a small episode of emesis however this morning denies any ongoing nausea, vomiting or abdominal pain Tolerating some clears overnight, due to episode of emesis will keep her on clear liquids for now. Patient not requiring acute surgical intervention at this time, continue with conservative management f/u stool studies Continue antibiotics Medical management per primary team, surgery will continue to follow Admission and Anticipated Discharge Date Admission Date: August 01, 2024 Supervising Physician Co-Signing Physician Notes I have seen and examined this patient this am. She continues without abdominal pain. She states it is not unusual for her to have some emesis. She may continue with clears for now. WBC improving with current management. Subjective Patient overnight had a small episode of emesis however no additional issues reported States she has no abdominal pain this morning , has tolerated some clear liquids overnight Afebrile, AM WBC pending Physical Exam Constitutional: WD/WN, vitals as above Respiratory: normal respiratory effort, lungs clear to auscultation Cardiovascular: RRR, no murmur, no edema Gastrointestinal (Abdomen): Abdomen soft, nondistended, nontender. No rebound, guarding or peritonitis +Old midline and RUQ surgical sites appr eciated. Skin: no rashes, warm and dry Psychiatric: A+Ox3, euthymic affect Results & Data Vital Signs (Past 12 Hours) Vital Signs Temp Pulse Pulse Resp BP Pulse Ox O2 Del Method 08/02/24 02:47 37.2 C 88 18 116/63 91 Room Air 08/02/24 01:29 37.1 C 08/01/24 22:50 37.8 C H 89 18 98/62 L 93 Room Air 08/01/24 21:51 95 H 08/01/24 19:41 90 08/01/24 19:30 Room Air PG Care Time/CCT Total # of Minutes Spent Total Time Spent with Patient: Total time spent is greater than 50% in coordination of care (as documented) at patient's floor/unit and/or counseling patient: Coding [place] [address] SUB INP/OBS CARE 1/25MIN Patient Type Established Medical Decision Making Straight Forward Diagnoses Colitis K52.9
[2024-08-02 07:24] LABS: Basophils # (auto) 0.03 K/uL (0.00-0.20); Basophils % (auto) 0.2 %; Eosinophils # (auto) 0.04 K/uL (0.00-0.50); Eosinophils % (auto) 0.2 %; Hematocrit (blood only) 33.3 % (37.0-47.0); Hemoglobin 11.3 g/dl (12.0-16.0); Immature Granulocytes # (auto) 0.05 K/uL (0.01-0.20); Immature Granulocytes % (auto) 0.3 %; Lymphocytes # (auto) 1.32 K/uL (1.20-3.40); Lymphocytes % (auto) 8.1 %; Mean Corpuscular Hemoglobin 35.5 pg (25.0-34.0); Mean Corpuscular Hgb Conc 33.9 g/dL (32.0-36.0); Mean Corpuscular Volume 104.7 fL (80.0-100.0); Mean Platelet Volume 10.1 fL (9.4-12.4); Monocytes # (auto) 1.43 K/uL (0.11-0.59); Monocytes % (auto) 8.8 %; Neutrophils # (auto) 13.36 K/uL (1.40-6.50); Neutrophils % (auto) 82.4 %; Nucleated RBC # (auto) 0.02 K/uL (0.00-0.12); Nucleated RBC % (auto) 0.1 %; Platelet Count 155 K/uL (130-400); RDW Coefficient of Variation 14.1 % (11.5-14.5); RDW Standard Deviation 54.4 fL (36.4-46.3); Red Blood Count 3.18 M/uL (4.20-5.40); White Blood Count 16.23 K/ul (4.8-10.8)
[2024-08-02 07:38] LABS: BUN Creatinine Ratio 21.8 (10-20); Calcium 8.1 mg/dl (8.6-10.3); Creatinine Clr Calc Pharmacy 32.7 ml/min; Magnesium 1.6 mg/dl (1.7-2.4); Potassium 3.4 mmol/L (3.5-5.1)
[2024-08-02] MEDS: CALCITONIN SALMON NA 200 IU/AC 3.7 ML BTL SCH (09:01)
[2024-08-02] MEDS: ISOSORBIDE MONO EXTENDED REL 30 MG TABCR PO SCH (09:02)
[2024-08-02] MEDS: ADVANCED PROBIOTIC 625 MG CAPSULE PO SCH (09:02)
[2024-08-02] MEDS: METOPROLOL SUCC 50MG EXT REL TAB PO SCH (09:02)
[2024-08-02 10:29] LABS: Cdiff Toxin B Gene (2yr or >) Positive Cdiff Gene (Neg)
[2024-08-02 10:51] LABS: Adenovirus F 40/41 PCR Not Detected (NotDetected); Astrovirus PCR Not Detected (NotDetected); Campylobacter PCR Not Detected (NotDetected); Cryptosporidium PCR Not Detected (NotDetected); Cyclospora cayetanensis PCR Not Detected (NotDetected); Entamoeba histolytica PCR Not Detected (NotDetected); Enteroaggregative E.coli(EAEC) Not Detected (NotDetected); Enteropathogenic E.coli (EPEC) Not Detected (NotDetected); Enterotoxigenic E.coli (ETEC) Not Detected (NotDetected); Giardia lamblia PCR Not Detected (NotDetected); Norovirus GI/GII PCR Not Detected (NotDetected); Plesiomonas shigelloides PCR Not Detected (NotDetected); Rotavirus A PCR Not Detected (NotDetected); Salmonella PCR Not Detected (NotDetected); Sapovirus PCR Not Detected (NotDetected); Shiga-like Toxin E.coli (STEC) Not Detected (NotDetected); Shigella/Enteroinvasive E.coli Not Detected (NotDetected); Vibrio cholerae PCR Not Detected (NotDetected); Vibrio species PCR Not Detected (NotDetected); Yersinia enterocolitica PCR Not Detected (NotDetected)
[2024-08-02 10:57] LABS: Cdiff Antigen Positive
--- NOTE | 2024-08-02 10:58 | Hospitalist Progress Note ---
Date of Service August 02, 2024 Assessment & Plan (1) Generalized weakness: (2) HAYDEN (acute kidney injury): (3) GERD (gastroesophageal reflux disease): (4) Paroxysmal atrial fibrillation: (5) Chronic HFrEF (heart failure with reduced ejection fraction): (6) Hypertension: (7) CAD (coronary artery disease): Plan This is a 68 y/o female with PMHx significant for chronic HFrEF, CAD, PAD, PAF, HTN, COPD, dyslipidemia who presented to the ED with progressive weakness for p ast few weeks but particularly the last 1-2 days. Work-up in the ED revealed marked leukocytosis with WBCs of 23.38, HAYDEN with BUN 38, creatinine 2.13 (Baseline ~0.7). UA was non-cath specimen, showed epithelial cells - culture was sent and pending. Respiratory panel was negative. CT abd/pelvis ordered and shows new mild diffuse colitis. C diff colitis patient presenting with leukocytosis of 23,000 C. difficile toxin and gene positive, stool culture otherwise unremarkable CT abdomen pelvis noting new diffuse colitis in the large bowel Patient notes chronic history of diarrhea General surgery consulted Started on po Vancomycin 125mg QID Also on IV Unasyn (see below) Continue to monitor symptoms Hypotension BP on lower end likely related to illness/mild dehydration - will hold BP meds except for beta atif IV fluids Continue to monitor HAYDEN (acute kidney injury) May be related to recent viral illness, dehydration. No obstruction on CT abd/pel Holding losartan, spironolactone as discussed Continue with gentle IVF (2bags) since NPO Continue to monitor with daily labs PAF Continue BB and Eliquis Continue to monitor on telemetry Chronic HFrEF (heart failure with reduced ejection fraction) Chronic, stable Gentle fluids Holding home spironolactone with the diarrhea and colitis Resume as soon as able Continue other home meds as ordered Diet: clears, advance as tolerated Code status: Full code DVT prophylaxis: on Eliquis Dispo: PT/OT evaluations ordered due to generalized weakness, fall precautions. Admission and Anticipated Discharge Date Admission Date: August 01, 2024 Subjective patient was seen with family at bedside States that she has chronic diarrhea symptoms Denying any chest pain, shortness of breath Review of Systems Review of Systems: All systems reviewed & are unremarkable except as noted in Subjective Physical Exam Physical Exam: General: Alert, oriented. No acute distress Psych: Appropriate mood and affect Neuro: No gross deficits while laying in bed HEENT: NC/AT CV: RRR Resp: Breath sounds clear bilaterally, no increased effort of breathing Abdomen: Soft, nontender Extremities: No edema in lower extremities bilaterally. Results & Data Results & Data Vital Signs (Past 12 Hours) Vital Signs Temp Pulse Resp BP Pulse Ox O2 Del Method 08/02/24 07:50 36.4 C L 84 17 112/72 93 Room Air 08/02/24 02:47 37.2 C 88 18 116/63 91 Room Air 08/02/24 01:29 37.1 C Diagnostic Findings Chest X-Ray 08/01/24 13:27 XR chest 1V portable HISTORY: 68 years-old Female injury alert acute chest trauma COMPARISON: August 18, 2023 TECHNIQUE: AP view of the chest FINDINGS: Heart size is enlarged. Median sternotomy. Pulmonary vascular congestion with chronic interstitial coarsening. No pneumothorax or large pleural effusion. Bones appear grossly intact. Right upper quadrant surgical clips. Chronic deformity of the distal left clavicle. IMPRESSION: Cardiomegaly with pulmonary vascular congestion. ACT 112: Negative or not required by law. The above report was generated using voice recognition software. It may contain grammatical, syntax or spelling errors. Electronically signed by: Jaime Osullivan M.D. 08/01/2024 2:[address] 08/01/24 14:16 CT OF THE HEAD WITHOUT CONTRAST CLINICAL HISTORY: neuro deficit, acute stroke suspected COMPARISON STUDY: Head CT December 14, 2017. MRI of the brain March 01, 2018. CT DOSE: 1250.21 mGy.cm TECHNIQUE: Helical axial images of the head were obtained without IV contrast. Automated exposure control was utilized for the study. A dose lowering technique was utilized adhering to the principles of ALARA. FINDINGS: No acute intracranial hemorrhage, midline shift or mass effect is present. The ventricular system is unremarkable. The basal cisterns are patent. No extra-axial collections are present. There are no findings to suggest acute dural sinus thrombosis or acute territorial infarct. No significant calvarial abnormalities are present. White matter hypodensities favor small vessel disease. The left mastoid air cells are opacified. There is also fluid within the left middle ear. There is a small amount of fluid within the right mastoid air cells. IMPRESSION: 1. No acute intracranial findings. 2. Opacified left mastoid air cells and fluid within the left middle ear. The findings may reflect otomastoiditis. Small amount of fluid within the right mastoid air cells. ACT 112: Negative or not required by law. Electronically signed by: Jose Dias M.D. 08/01/2024 2:50 PM Abdomen/Pelvis CT 08/01/24 15:54 EXAMINATION: CT of the abdomen and pelvis performed without contrast TECHNIQUE: Helical CT images from the lung bases through the symphysis pubis were obtained without contrast. Coronal and sagittal reformatted images were generated at a workstation for further assessment. Dose reduction techniques were achieved by using automatic exposure control and/or adjustment of mA and/or kV according to patient size and/or use of iterative reconstruction technique. COMPARISON: 08/19/2023 HISTORY: Abdominal pain FINDINGS: No evidence for bowel obstruction. No renal calculi. No ureteral calculi. No pneumoperitoneum or pneumatosis. Skin yudi within the inguinal regions. A femorofemoral bypass graft is identified. Prior cholecystectomy. Suture material again noted within the left upper quadrant involving the large bowel, with primary reanastomosis noted. There is some new mild diffuse wall thickening of the large bowel. [id number] stool burden. Heavy aortoiliac calcification. Adrenal glands, spleen, pancreas, and liver appear unremarkable. IMPRESSION: New mild, diffuse wall thickening of the large bowel, suggestive of colitis Electronically signed by Leonidas Daniel 08-01-2024 4:34 PM (3) GERD (gastroesophageal reflux disease) Esophagitis presence: esophagitis presence not specified Qualified Code(s): K21.9 - Gastro-esophageal reflux disease without esophagitis (6) Hypertension Hypertension type: primary hypertension Qualified Code(s): I10 - Essential (primary) hypertension (7) CAD (coronary artery disease) Associated angina: without angina Coronary Disease-Associated Artery/Lesion type: [place] artery [place] vs. transplanted heart: [place] heart Qualified Code(s): I25.10 - Atherosclerotic heart disease of [place] coronary artery without angina pectoris
[2024-08-02 10:59] LABS: Cdiff Toxin A+B Positive Cdiff Toxin (Negative)
[2024-08-02] MEDS: NICOTINE 14 MG/24 HR PATCH TD SCH (15:07)
[2024-08-02] MEDS: CHERRY SYRUP 5 ML UDP PO SCH (17:54)
[2024-08-02] MEDS: POTASSIUM CHLORIDE CRTAB 20 MEQ TABCR PO STA (17:54)
[2024-08-02] MEDS: VANCOMYCIN HCL 125 MG/2.5ML SOLN PO SCH (17:54)
[2024-08-02 20:13] LABS: Appearance Urine Clear (Clear); Bacteria Urine Automated None Seen (None Seen); Bilirubin Urine Negative (Negative); Blood Urine Negative (Negative); Cast Urine Automated 0-2 /lpf (0-2); Color Urine Yellow; Glucose Urine UA Negative (Negative); Ketones Urine Negative (Negative); Leukocyte Esterase Urine Negative (Negative); Nitrite Urine Negative (Negative); Protein Urine 1+ (Negative); RBC Urine Automated 0-2 /hpf (0-2); Specific Gravity Urine 1.015 (1.000-1.030); Urobilinogen Urine Negative (Negative); WBC Urine Automated 0-5 /hpf (0-5)
[2024-08-02] MEDS: MAGNESIUM OXIDE 400 MG TAB PO SCH (21:22)
[2024-08-03 06:26] LABS: Basophils # (auto) 0.04 K/uL (0.00-0.20); Basophils % (auto) 0.3 %; Eosinophils # (auto) 0.05 K/uL (0.00-0.50); Eosinophils % (auto) 0.4 %; Hematocrit (blood only) 35.2 % (37.0-47.0); Hemoglobin 11.8 g/dl (12.0-16.0); Immature Granulocytes # (auto) 0.09 K/uL (0.01-0.20); Immature Granulocytes % (auto) 0.6 %; Lymphocytes # (auto) 1.15 K/uL (1.20-3.40); Lymphocytes % (auto) 8.1 %; Mean Corpuscular Hemoglobin 35.2 pg (25.0-34.0); Mean Corpuscular Hgb Conc 33.5 g/dL (32.0-36.0); Mean Corpuscular Volume 105.1 fL (80.0-100.0); Mean Platelet Volume 10.1 fL (9.4-12.4); Monocytes # (auto) 1.19 K/uL (0.11-0.59); Monocytes % (auto) 8.4 %; Neutrophils # (auto) 11.61 K/uL (1.40-6.50); Neutrophils % (auto) 82.2 %; Platelet Count 161 K/uL (130-400); RDW Standard Deviation 54.8 fL (36.4-46.3); Red Blood Count 3.35 M/uL (4.20-5.40); White Blood Count 14.13 K/ul (4.8-10.8)
--- NOTE | 2024-08-03 06:43 | Surgery Progress Note ---
Date of Service August 03, 2024 Assessment & Plan (1) Colitis: Plan: Patient has done well overnight. No complaints of abdominal pain, N/V. Tolerating clears without issue and patient states she feels very hungry and wants to try regular food. WBC improved slightly to 14 from 16 Patient not requiring acute surgical intervention at this time, continue with conservative management f/u stool studies Continue antibiotics Continue medical management per primary team Admission and Anticipated Discharge Date Admission Date: August 01, 2024 Supervising Physician Co-Signing Physician Notes I have seen and examined this patient this am. Leukocytosis continues to improve and she has continued without abdominal pain or N/V tolerating oral intake. Stool studies obtained yesterday are (+) for C. diff. Repeat UA was performed and is improved. She may advance her diet to regular Tailor abx to treatment for C.diff Surgery will sign off at this time, please call if questions or concerns Subjective Patient has done well over the last 24 hours, denies any ongoing N/V and is tolerating liquids without issue. Denies any abdominal pain. States she feels hungry and would like to advance her diet. Afebirle and WBC 14 today Physical Exam Constitutional: WD/WN, vitals as above Respiratory: normal respiratory effort, lungs clear to auscultation Cardiovascular: RRR, no murmur, no edema Gastrointestinal (Abdomen): Abdomen soft, nondistended, nontender. No rebound, guarding or peritonitis +Old midline and RUQ surgical sites appr eciated. Skin: no rashes, warm and dry Psychiatric: A+Ox3, euthymic affect Results & Data Vital Signs (Past 12 Hours) Vital Signs Temp Pulse Pulse Resp BP Pulse Ox O2 Del Method 08/03/24 03:37 37.0 C 78 18 105/62 92 Room Air 08/02/24 22:52 37.4 C 73 18 91/52 L 92 Room Air 08/02/24 21:48 82 08/02/24 19:53 Room Air 08/02/24 19:22 37.5 C 77 18 104/40 L 95 Room Air PG Care Time/CCT Total # of Minutes Spent Total Time Spent with Patient: Total time spent is greater than 50% in coordination of care (as documented) at patient's floor/unit and/or counseling patient: Coding Level of Care Code 93155 SUB INP/OBS CARE 1/25MIN Diagnoses Colitis K52.9
[2024-08-03 06:58] LABS: Albumin Globulin Ratio 1.1 (0.9-2); Albumin Level 2.5 gm/dl (3.4-5.0); BUN Creatinine Ratio 21.3 (10-20); Bilirubin,Total 0.4 mg/dl (0.2-1.0); Calcium 8.5 mg/dl (8.6-10.3); Creatinine Clr Calc Pharmacy 49.8 ml/min; Globulin 2.3 gm/dl (2.5-4.0); Magnesium 1.7 mg/dl (1.7-2.4); Potassium 3.4 mmol/L (3.5-5.1); Total Protein 4.8 gm/dl (6.0-8.3)
--- NOTE | 2024-08-03 11:55 | Hospitalist Progress Note ---
Date of Service August 03, 2024 Assessment & Plan (1) Generalized weakness: (2) HAYDEN (acute kidney injury): (3) GERD (gastroesophageal reflux disease): (4) Paroxysmal atrial fibrillation: (5) Chronic HFrEF (heart failure with reduced ejection fraction): (6) Hypertension: (7) CAD (coronary artery disease): Plan This is a 68 y/o female with PMHx significant for chronic HFrEF, CAD, PAD, PAF, HTN, COPD, dyslipidemia who presented to the ED with progressive weakness for p ast few weeks but particularly the last 1-2 days. Work-up in the ED revealed marked leukocytosis with WBCs of 23.38, HAYDEN with BUN 38, creatinine 2.13 (Baseline ~0.7). UA was non-cath specimen, showed epithelial cells - culture was sent and pending. Respiratory panel was negative. CT abd/pelvis ordered and shows new mild diffuse colitis. CT head noting acute mastoiditis. C diff colitis patient presenting with leukocytosis of 23,000 C. difficile toxin and gene positive, stool culture otherwise unremarkable CT abdomen pelvis noting new diffuse colitis in the large bowel Patient notes chronic history of diarrhea General surgery consulted Started on po Vancomycin 125mg QID Also on IV Unasyn (see below) Continue to monitor symptoms Otomastoiditis patient notes that she recently had an ear infection and was on antibiotics for this Head CT noting the following:"Opacified left mastoid air cells and fluid within the left middle ear. The findings may reflect otomastoiditis" Continue with IV Unasyn at this time continue to monitor Hypotension BP on lower end likely related to illness/mild dehydration - will hold BP meds except for beta atif IV fluids Continue to monitor HAYDEN (acute kidney injury) May be related to recent viral illness, dehydration. No obstruction on CT abd/pel Holding losartan, spironolactone as discussed Continue with gentle IVF (2bags) since NPO Continue to monitor with daily labs PAF Continue BB and Eliquis Continue to monitor on telemetry Chronic HFrEF (heart failure with reduced ejection fraction) Chronic, stable Gentle fluids Holding home spironolactone with the diarrhea and colitis Resume as soon as able Continue other home meds as ordered Diet: clears, advance as tolerated Code status: Full code DVT prophylaxis: on Eliquis Dispo: PT/OT evaluations ordered due to generalized weakness, fall precautions. Admission and Anticipated Discharge Date Admission Date: August 01, 2024 Dalila Esquivel was seen in the a.m. walking with physical therapy using a walker Back in her room she stated that she was starting to feel a bit stronger Noted that the diarrhea was still present but improving Did note that she was feeling better today Review of Systems Review of Systems: All systems reviewed & are unremarkable except as noted in Subjective Physical Exam Physical Exam: General: Alert, oriented. No acute distress Psych: Appropriate mood and affect Neuro: No gross deficits while laying in bed HEENT: NC/AT CV: RRR Resp: Breath sounds clear bilaterally, no increased effort of breathing Abdomen: Soft, nontender Extremities: No edema in lower extremities bilaterally. Results & Data Results & Data Vital Signs (Past 12 Hours) Vital Signs Temp Pulse Resp BP Pulse Ox O2 Del Method 08/03/24 11:52 37.0 C 79 16 117/72 93 Room Air 08/03/24 07:43 36.8 C 84 16 122/61 94 Room Air 08/03/24 03:37 37.0 C 78 18 105/62 92 Room Air Diagnostic Findings Chest X-Ray 08/01/24 13:27 XR chest 1V portable HISTORY: 68 years-old Female injury alert acute chest trauma COMPARISON: August 18, 2023 TECHNIQUE: AP view of the chest FINDINGS: Heart size is enlarged. Median sternotomy. Pulmonary vascular congestion with chronic interstitial coarsening. No pneumothorax or large pleural effusion. Bones appear grossly intact. Right upper quadrant surgical clips. Chronic deformity of the distal left clavicle. IMPRESSION: Cardiomegaly with pulmonary vascular congestion. ACT 112: Negative or not required by law. The above report was generated using voice recognition software. It may contain grammatical, syntax or spelling errors. Electronically signed by: Jaime Osullivan M.D. 08/01/2024 2:[address] 08/01/24 14:16 CT OF THE HEAD WITHOUT CONTRAST CLINICAL HISTORY: neuro deficit, acute stroke suspected COMPARISON STUDY: Head CT December 14, 2017. MRI of the brain March 01, 2018. CT DOSE: 1250.21 mGy.cm TECHNIQUE: Helical axial images of the head were obtained without IV contrast. Automated exposure control was utilized for the study. A dose lowering technique was utilized adhering to the principles of ALARA. FINDINGS: No acute intracranial hemorrhage, midline shift or mass effect is present. The ventricular system is unremarkable. The basal cisterns are patent. No extra-axial collections are present. There are no findings to suggest acute dural sinus thrombosis or acute territorial infarct. No significant calvarial abnormalities are present. White matter hypodensities favor small vessel disease. The left mastoid air cells are opacified. There is also fluid within th e left middle ear. There is a small amount of fluid within the right mastoid air cells. IMPRESSION: 1. No acute intracranial findings. 2. Opacified left mastoid air cells and fluid within the left middle ear. The findings may reflect otomastoiditis. Small amount of fluid within the right mastoid air cells. ACT 112: Negative or not required by law. Electronically signed by: Jose Dias M.D. 08/01/2024 2:50 PM Abdomen/Pelvis CT 08/01/24 15:54 EXAMINATION: CT of the abdomen and pelvis performed without contrast TECHNIQUE: Helical CT images from the lung bases through the symphysis pubis were obtained without contrast. Coronal and sagittal reformatted images were generated at a workstation for further assessment. Dose reduction techniques were achieved by using automatic exposure control and/or adjustment of mA and/or kV according to patient size and/or use of iterative reconstruction technique. COMPARISON: 08/19/2023 HISTORY: Abdominal pain FINDINGS: No evidence for bowel obstruction. No renal calculi. No ureteral calculi. No pneumoperitoneum or pneumatosis. Skin yudi within the inguinal regions. A femorofemoral bypass graft is identified. Prior cholecystectomy. Suture material again noted within the left upper quadrant involving the large bowel, with primary reanastomosis noted. There is some new mild diffuse wall thickening of the large bowel. [id number] stool burden. Heavy aortoiliac calcification. Adrenal glands, spleen, pancreas, and liver appear unremarkable. IMPRESSION: New mild, diffuse wall thickening of the large bowel, suggestive of colitis Electronically signed by Leonidas Daniel 08-01-2024 4:34 PM (3) GERD (gastroesophageal reflux disease) Esophagitis presence: esophagitis presence not specified Qualified Code(s): K21.9 - Gastro-esophageal reflux disease without esophagitis (6) Hypertension Hypertension type: primary hypertension Qualified Code(s): I10 - Essential (primary) hypertension (7) CAD (coronary artery disease) Associated angina: without angina Coronary Disease-Associated Artery/Lesion type: [place] artery [place] vs. transplanted heart: [place] heart Qualified Code(s): I25.10 - Atherosclerotic heart disease of [place] coronary artery witho ut angina pectoris
[2024-08-03] MEDS: AMPICILLIN/SULBACTAM SOD 3,000 MG/100 ML BAG IV SCH (12:56)
[2024-08-03] MEDS: GABAPENTIN 400 MG CAP PO SCH (16:06)
[2024-08-03] MEDS ORDERED: BENZONATATE 100 MG CAPSULE PO PRN (16:09)
[2024-08-03] MEDS: COUGH DROP (SUGAR FREE) LOZ 24 LOZ/1 BOX BUCCAL PRN (16:51)
[2024-08-03] MEDS: guaiFENesin/DEXTROM SYRUP 100MG/10MG 5ML UDC PO PRN (16:51)
[2024-08-03 19:55] VITALS: RESP 18
[2024-08-04 07:59] LABS: Basophils # (auto) 0.02 K/uL (0.00-0.20); Basophils % (auto) 0.2 %; Eosinophils # (auto) 0.03 K/uL (0.00-0.50); Eosinophils % (auto) 0.2 %; Hematocrit (blood only) 34.7 % (37.0-47.0); Immature Granulocytes # (auto) 0.11 K/uL (0.01-0.20); Immature Granulocytes % (auto) 0.9 %; Lymphocytes # (auto) 1.01 K/uL (1.20-3.40); Lymphocytes % (auto) 8.3 %; Mean Corpuscular Hemoglobin 35.3 pg (25.0-34.0); Mean Corpuscular Hgb Conc 34.6 g/dL (32.0-36.0); Mean Corpuscular Volume 102.1 fL (80.0-100.0); Mean Platelet Volume 9.6 fL (9.4-12.4); Monocytes # (auto) 0.87 K/uL (0.11-0.59); Monocytes % (auto) 7.1 %; Neutrophils % (auto) 83.3 %; Platelet Count 148 K/uL (130-400); RDW Standard Deviation 53.4 fL (36.4-46.3); White Blood Count 12.24 K/ul (4.8-10.8)
[2024-08-04 08:18] LABS: Albumin Globulin Ratio 0.9 (0.9-2); Albumin Level 2.5 gm/dl (3.4-5.0); Bilirubin,Total 0.3 mg/dl (0.2-1.0); Calcium 8.5 mg/dl (8.6-10.3); Creatinine Clr Calc Pharmacy 66.7 ml/min; Globulin 2.8 gm/dl (2.5-4.0); Magnesium 1.4 mg/dl (1.7-2.4); Phosphorus 2.7 mg/dl (2.5-4.9); Potassium 3.1 mmol/L (3.5-5.1); Total Protein 5.3 gm/dl (6.0-8.3)
[2024-08-04] MEDS: POTASSIUM CHLORIDE CRTAB 20 MEQ TABCR PO STA (09:31)
[2024-08-04 11:18] VITALS: BP 114/67; TEMP 98.1; O2SAT 95
--- NOTE | 2024-08-04 12:48 | Discharge Summary ---
Discharge Summary Date of Service August 04, 2024 Principal Dx & Hospital Course #1 = Principal Diagnosis (1) Generalized weakness: (2) HAYDEN (acute kidney injury): (3) GERD (gastroesophageal reflux disease): (4) Paroxysmal atrial fibrillation: (5) Chronic HFrEF (heart failure with reduced ejection fraction): (6) Hypertension: (7) CAD (coronary artery disease): Plan This is a 68 y/o female with PMHx significant for chronic HFrEF, CAD, PAD, PAF, HTN, COPD, dyslipidemia who presented to the ED with progressive weakness for past few weeks but particularly the last 1-2 days. Work-up in the ED revealed marked leukocytosis with WBCs of 23.38, HAYDEN with BUN 38, creatinine 2.13 (Baseline ~0.7). UA was non-cath specimen, showed epithelial cells - culture was sent and pending. Respiratory panel was negative. CT abd/pelvis ordered and shows new mild diffuse colitis. CT head noting acute mastoiditis. C diff colitis Hypokalemia Hypomagnesemia patient presenting with leukocytosis of 23,000 C. difficile toxin and gene positive, stool culture otherwise unremarkable CT abdomen pelvis noting new diffuse colitis in the large bowel Patient notes chronic history of diarrhea General surgery consulted. Recommended/stated the following on 08/03/24: "Patient has done well overnight. No complaints of abdominal pain, N/V. Tolerating clears without issue and patient states she feels very hungry and wants to try regular food. WBC improved slightly to 14 from 16 Patient not requiring acute surgical intervention at this time, continue with conservative management f/u stool studies Continue antibiotics Continue medical management per primary team" Started on po Vancomycin 125mg QID x 2 days of treatment. Discharged with an additional 8 days of treatment. On the day of discharge, patient medically stable and asking to be discharged. Had been seen by physical therapy and Occupational Therapy who recommended discharge to acute rehab. However patient adamant that she does not want to go to rehab. States she had a previous bad experience there. Declining SNF as well. Patient still having many bowel movements daily however improved. She noted that she has diarrhea at baseline. Has been trying to stay adequately hydrated. Noted hypokalemia and hypomagnesemia supplemented before discharge. Patient also discharged on magnesium supplements as well as potassium supplements for an additional 5 days. Please ensure close monitoring of those levels after discharge. Please repeat mag and BMP in the next 2 to 3 days. White blood cell count had down trended from 23K to 12,000 on the day of discharge. Please ensure continued downtrend to normal limits. Please repeat a CBC in the next 2 to 3 days as well. patient was tolerating a regular diet on discharge. Continue after discharge. PCP followup for continued monitoring. Otomastoiditis patient notes that she recently had an ear infection and was on antibiotics for this Head CT noting the following:"Opacified left mastoid air cells and fluid within the left middle ear. The findings may reflect otomastoiditis" Treated with IV Unasyn and transition to p.o. Augmentin for an additional 8 days on discharge. Please refer to ENT for further evaluation. Continue to monitor symptoms after discharge. Hypotension BP on lower end during admission likely related to illness/mild dehydration - held BP meds except for beta atif IV fluids on the day of discharge patient advised to continue to hold her home spironolactone in the setting of her diarrhea and related volume depletion until PCP follow-up. Home losartan also held until PCP follow-up. She was advised to continue with her metoprolol. Close PCP follow-up after discharge. HAYDEN (acute kidney injury) May be related to recent viral illness, dehydration. No obstruction on CT abd/pel Holding losartan, spironolactone as discussed above gentle IVF (2bags) WNL on day of discharge, creatinine of 0.7 PAF Continue BB and Eliquis Continue to monitor on telemetry PCP follow-up Chronic HFrEF (heart failure with reduced ejection fraction) Chronic, stable Gentle fluids Holding home spironolactone with the diarrhea and colitis PCP to resume as soon as able Continue other home meds as ordered Notes For Next Care Provider Head CT noting otomastoiditis. Treated with IV Unasyn and transitioned to po Augmentin for 8 additional days. Please refer to ENT for further evaluation. Please repeat mag and BMP in the next 2 to 3 days. Please repeat a CBC in the next 2 to 3 days as well. Please ensure Potassium, magnesium and white blood cell count values have returned/remain in normal limits. Medication Changes From Visit p.o. vancomycin 125 mg every 6 hours for 8 additional days for c diff treatment Augmentin 875 mg twice daily for 8 additional days for otomastoiditis treatment noted on head CT. Please refer to ENT for further evaluation. KCl 10 mEq daily for 5 additional days Mag-Ox 400 mg twice daily for 5 additional days Holding home spironolactone and losartan in the setting of lower blood pressure values and likely dehydration in the setting of acute on chronic diarrhea. PCP to resume as able. Admission HPI Per Admitting Provider This is a 68 y/o female with chronic HFrEF, CAD, PAD, PAF, HTN, COPD, dyslipidemia, and other history as outlined below who presented to the ED today with progressive weakness for past few weeks but particularly the last 1-2 days. Pt reports at least three falls in the last 24 hours when she either slid out of bed or felt like her legs gave out and she slid to the floor. She was unable to get off the floor without help so was on the floor for prolonged period. She denies hitting her head. Has felt overall weak and tired. Currently, she reports feeling sore in hips and legs from the fall - hit left hip when she fell in her kitchen. She also reports a cough x several days - productive of white mucus. No significant dyspnea. Her appetite has been at baseline. She denies N/V. She reports chronic diarrhea but feels like this is unchanged from her baseline. No blood in stools. She denies fevers but has had chills (did check her temp at home). She denies dysuria, hematuria, urinary frequency. Denies chest pain, palpitations, syncope. Admission Exam Per Admitting Provider GENERAL: Lethargic and oriented x3. NAD, on RA. Appears ill/frail/weak/elderly. HEENT: No pallor, no icterus. Pupils equal, round and reactive to light. Oral mucosa dry. 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 NECK: No JVD, no neck masses. No mastoid tenderness, Left ear TM bulge noted, no erythema or pus noted. No sinuses/mastoid tenderness noted. HEART: S1 and S2 heard. Regular rate and rhythm. No murmur, no gallop. RESPIRATORY SYSTEM: Normal AP diameter. No accessory muscle use. No wheezing, no crackles. ABDOMEN: Soft, bowel sounds present, mild generalized tender, no distention. CENTRAL NERVOUS SYSTEM: No facial droop. Speech is clear. Obeys simple commands. Moves extremities. EXTREMITIES: No edema, no erythema seen. Back w/ some superficial bruises noted. Discharge Exam General: Alert, oriented. No acute distress Psych: Appropriate mood and affect Neuro: No gross deficits while laying in bed HEENT: NC/AT CV: RRR Resp: Breath sounds clear bilaterally, no increased effort of breathing Abdomen: Soft, nontender Extremities: No edema in lower extremities bilaterally. Updated Medication List Medication Instructions Recorded Confirmed Type gabapentin 800 mg tablet 800 mg PO QID 01/02/22 08/01/24 History isosorbide mononitrate 30 mg 30 mg PO QAM 01/02/22 08/01/24 History tablet,extended release 24 hr lorazepam 1 mg tablet 1 mg PO QID severe anxiety 01/02/22 08/01/24 History omeprazole 40 mg capsule,delayed 40 mg PO BID 01/02/22 08/01/24 History release albuterol sulfate 90 mcg/actuation 2 puff inhalation Q4H PRN Wheezing 01/03/22 08/01/24 History aerosol inhaler pravastatin 40 mg tablet 40 mg PO HS 01/03/22 08/01/24 History nitroglycerin 0.4 mg sublingual 0.4 mg buccal UD PRN Chest Pain 02/27/22 08/01/24 History tablet apixaban 5 mg tablet (Eliquis) 5 mg PO BID 11/28/22 08/01/24 History losartan 100 mg tablet 100 mg PO HS 11/28/22 08/01/24 History spironolactone 50 mg tablet 50 mg PO BID 11/28/22 08/01/24 History (Aldactone) metoprolol succinate 50 mg 50 mg PO DAILY 07/24/23 08/01/24 History tablet,extended release 24 hr trazodone 150 mg tablet 150 mg PO HS 07/24/23 08/01/24 History calcitonin (salmon) 200 See Rx Instructions .Route .COMPLEX 08/01/24 08/01/24 History unit/actuation nasal spray amoxicillin 875 mg-potassium 1 tab PO BID #16 tabs 08/04/24 Rx clavulanate 125 mg tablet magnesium oxide 400 mg (241.3 mg 400 mg PO BID #10 tabs 08/04/24 Rx magnesium) tablet potassium chloride 10 mEq 10 meq PO DAILY #5 tabs 08/04/24 Rx tablet,extended release vancomycin 125 mg capsule 125 mg PO Q6H #32 caps 08/04/24 Rx Hospital Stay Data Consultations 08/01/24 15:37 ED Decision to Admit Stat 08/01/24 16:43 Consult General Surgery Routine Diagnostic Imagining Performed 08/01/24 14:16 CT head/brain wo con Stat 08/01/24 15:54 CT Abdomen and Pelvis [CT abd pelvis wo con] Stat Chest X-Ray 08/01/24 13:27 XR chest 1V portable HISTORY: 68 years-old Female injury alert acute chest trauma COMPARISON: August 18, 2023 TECHNIQUE: AP view of the chest FINDINGS: Heart size is enlarged. Median sternotomy. Pulmonary vascular congestion with chronic interstitial coarsening. No pneumothorax or large pleural effusion. Bones appear grossly intact. Right upper quadrant surgical clips. Chronic deformity of the distal left clavicle. IMPRESSION: Cardiomegaly with pulmonary vascular congestion. ACT 112: Negative or not required by law. The above report was generated using voice recognition software. It may contain grammatical, syntax or spelling errors. Electronically signed by: Jaime Osullivan M.D. 08/01/2024 2:[address] 08/01/24 14:16 CT OF THE HEAD WITHOUT CONTRAST CLINICAL HISTORY: neuro deficit, acute stroke suspected COMPARISON STUDY: Head CT December 14, 2017. MRI of the brain March 01, 2018. CT DOSE: 1250.21 mGy.cm TECHNIQUE: Helical axial images of the head were obtained without IV contrast. Automated exposure control was utilized for the study. A dose lowering technique was utilized adhering to the principles of ALARA. FINDINGS: No acute intracranial hemorrhage, midline shift or mass effect is present. The ventricular system is unremarkable. The basal cisterns are patent. No extra-axial collections are present. There are no findings to suggest acute dural sinus thrombosis or acute territorial infarct. No significant calvarial abnormalities are present. White matter hypodensities favor small vessel disease. The left mastoid air cells are opacified. There is also fluid within the left middle ear. There is a small amount of fluid within the right mastoid air cells. IMPRESSION: 1. No acute intracranial findings. 2. Opacified left mastoid air cells and fluid within the left middle ear. The findings may reflect otomastoiditis. Small amount of fluid within the right mastoid air cells. ACT 112: Negative or not required by law. Electronically signed by: Jose Dias M.D. 08/01/2024 2:50 PM Abdomen/Pelvis CT 08/01/24 15:54 EXAMINATION: CT of the abdomen and pelvis performed without contrast TECHNIQUE: Helical CT images from the lung bases through the symphysis pubis were obtained without contrast. Coronal and sagittal reformatted images were generated at a workstation for further assessment. Dose reduction techniques were achieved by using automatic exposure control and/or adjustment of mA and/or kV according to patient size and/or use of iterative reconstruction technique. COMPARISON: 08/19/2023 HISTORY: Abdominal pain FINDINGS: No evidence for bowel obstruction. No renal calculi. No ureteral calculi. No pneumoperitoneum or pneumatosis. Skin yudi within the inguinal regions. A femorofemoral bypass graft is identified. Prior cholecystectomy. Suture material again noted within the left upper quadrant involving the large bowel, with primary reanastomosis noted. There is some new mild diffuse wall thickening of the large bowel. [id number] stool burden. Heavy aortoiliac calcification. Adrenal glands, spleen, pancreas, and liver appear unremarkable. IMPRESSION: New mild, diffuse wall thickening of the large bowel, suggestive of colitis Electronically signed by Leonidas Daniel 08-01-2024 4:34 PM Discharge Instructions Given to Patient (Per Discharging Provider) Sierra, You are admitted and treated for acute on chronic diarrhea symptoms after it was determined that you have a C. difficile infection. We treated you with the oral antibiotic vancomycin. Please continue taking that as prescribed for an additional 8 days. Because of the diarrhea we are holding your diuretic medication spironolactone and your blood pressure medication losartan until you follow-up with your primary care provider. Please continue with your home metoprolol. Try to stay as hydrated as you can to make up for the fluid losses with the diarrhea. We are also discharging you home with electrolyte supplements. Please continue to take the magnesium oxide and potassium supplements for an additional 5 days. Your primary care provider will keep an eye on those levels after discharge. Your head CT also noted that you have an acute infection in your ear called otomastoiditis. We treated you with IV antibiotics called Unasyn. We transitioned you to the oral version of that called Augmentin on discharge. Please continue taking that for an additional 8 days as well. You will need to see an ENT specialist for your ear. This will be communicated to your primary care provider as well. Please keep close follow up with your primary care provider after discharge. Please do not hesitate to come back to the emergency room if your symptoms worsen or return. It was a pleasure taking care of you while you were here. Total Time Total Time Spent Total Time Spent (In Minutes): 65
[2024-08-04] MEDS: MAGNESIUM OXIDE 400 MG TAB PO ONE (14:07)
[2024-08-04 14:32] VITALS: PULSE 87
--- NOTE | 2024-08-04 22:11 | Electrocardiogram Report ---
Test Reason : Blood Pressure : */* mmHG Vent. Rate : 85 BPM Atrial Rate : 85 BPM P-R Int : 148 ms QRS Dur : 106 ms QT Int : 400 ms P-R-T Axes : 27 -31 107 degrees QTcB Int : 476 ms Sinus rhythm Premature atrial complexes Left axis deviation Left ventricular hypertrophy with repolarization abnormality ( R in aVL , Oscar product ) Inferior infarct (cited on or before 22-Oct-2007) Abnormal ECG When compared with ECG of 01-Aug-2023 11:42, T wave inversion less evident in Anterolateral leads Confirmed by Arun Delacruz ([id number]) on 08/04/2024 10:11:04 PM Referred By: REFERRED SELF Confirmed By: Arun Delacruz
--- NOTE | 2024-08-04 22:13 | Electrocardiogram Report ---
Test Reason : Blood Pressure : */* mmHG Vent. Rate : 74 BPM Atrial Rate : 74 BPM P-R Int : 152 ms QRS Dur : 124 ms QT Int : 442 ms P-R-T Axes : 39 -24 85 degrees QTcB Int : 490 ms Sinus rhythm with marked sinus arrhythmia with occasional Premature ventricular complexes Left ventricular hypertrophy with QRS widening and repolarization abnormality Possible Anterolateral infarct , age undetermined Inferior infarct (cited on or before 22-Oct-2007) Nonspecific ST and T wave abnormality Prolonged QT Abnormal ECG When compared with ECG of 01-Aug-2024 13:22, Premature ventricular complexes are now Present Questionable change in QRS duration T wave inversion less evident in Lateral leads Confirmed by Arun Delacruz ([id number]) on 08/04/2024 10:12:46 PM Referred By: REFERRED SELF Confirmed By: Arun Dealcruz
== END 2024-08-04 15:56 | disposition home health service (06) | DRG 372 ==
LOC: ED 13:04 → SUATTDRO 16:15 → INTOOBSV 16:15 → 2W 16:15

== ENCOUNTER 2024-08-24 22:17 | Inpatient (IN) ==
--- NOTE | 2024-08-24 23:09 | Emergency Department Note ---
Impression & Plan Encephalopathy ADMIT ED Provider Note HPI: History obtained from patient's at the bedside. The patient is a 68-year-old female with history of chronic heart failure with reduced ejection fraction, COPD, PAD, GERD, anxiety, CAD, presents the emergency department with altered mental status. Patient's states that he noticed the patient turned the oven on and then never came back to turn it off. He states he went to check on her in the bedroom and she seemed to be lethargic and would not wake up. He states the patient was taking pain medication and he believes it was oxycodone. He is unsure of how much she might of taken. He states he believes the patient also took some "sleep medication". Per EMS, patient was given Narcan in the field and did become more responsive. On my initial assessment the patient is hypotensive and saturating well on nasal cannula oxygen. She is alert to a mild sternal rub. Patient does not otherwise display any focal deficits on my initial assessment. ROS: - Per HPI Differential Diagnosis: Polypharmacy, opioid overdose, stroke, intracranial hemorrhage, sepsis, pneumonia, amongst other potential pathologies. *Outpatient medications and allergy history reviewed. PE: General: Alert to verbal stimuli, overall lethargic appearing HEENT: Normocephalic, trachea midline Eyes: Extraocular eye movement is intact, no scleral erythema Pulmonary: Clear to auscultation bilaterally, no wheezing Cardio: Regular rate and rhythm GI: Abdomen is soft to palpation : No suprapubic tenderness MSK: No evidence of trauma or malformation of the extremities, no edema Skin: No evidence of rash Neuro: Alert to verbal stimuli, no focal deficits, ambulates all extremity spontaneously Psychiatric: Lethargic but cooperative with instruction INDEPENDENT INTERPRETATIONS: clinical research monitor: (As interpreted by myself): - An order was placed for continuous cardiac monitoring - Patient was noted to be in sinus rhythm with a rate of 80 EKG: (As interpreted by myself): Rate: 85 Rhythm: Normal sinus rhythm Intervals: QTc 523 ms, otherwise within normal limits ST changes: No ST elevation Time: 2228 Interventions provided in ED: -IV Narcan, IV fluid bolus Medical Decision Making: IV was established and lab work obtained, patient was placed on playground monitor. Patient is given IV fluid bolus for presenting hypotension, she appears somewhat lethargic. Patient was given a dose of IV Narcan without much response, lab work shows a leukocytosis that appears to be chronic upon review of previous labs, hemoglobin is stable at 11.4, platelet count is normal, CMP does not show any evidence of any critical findings. Initial high-sensitivity troponin level is elevated at 51, EKG does not show any evidence of any acute ischemic changes. Urine drug screen is positive for opioids, alcohol level is negative, ammonia level is normal. Chest x-ray shows pleural thickening laterally in the left lung. I suspect the patient's hypoxia on presentation was secondary to apnea from likely polypharmacy. CT imaging of the head does not show any evidence of any acute process. On my reassessment the patient remained stable on nasal cannula oxygen, patient was able to wake up and expressed an understanding of need for admission overnight. I feel that she will require admission for encephalopathy and observation overnight. Given her medication list and her stating that she seemed to be taking extra medication tonight I suspect that her symptoms are secondary to polypharmacy. I discussed the above findings with the on-call hospitalist, Dr. Ortiz, the patient was placed for admission in stable condition for further care. Consultants/Discussions held with other healthcare providers: -Hospitalist, Dr. Ortiz Disposition discussion held by myself with: -Patient Diagnosis: 1. Polypharmacy with encephalopathy, acute 2. Elevated high-sensitivity troponin level, acute 3. Opiate positive UDS Disposition: Admission Gatito West DO Emergency Medicine Past Med/Surg History Problem List (Updated 08/25/24 @ 01:29 by Gatito West DO) Encephalopathy (Acute) Colitis Chronic HFrEF (heart failure with reduced ejection fraction) EF 40-45% per 09/2022 ECHO HAYDEN (acute kidney injury) (Acute) Generalized weakness Paroxysmal atrial fibrillation Atherosclerosis of artery of both lower extremities Current smoker COPD with emphysema Polycythemia Prediabetes pt denies PAD (peripheral artery disease) Myocardial Infarction unsure of date - 2009 or earlier. Hyperlipidemia Hypertension GERD (gastroesophageal reflux disease) Well controlled and stable Anxiety CAD (coronary artery disease) CABG x 4 2002, CABG x 3 2009 Patent PONCE to LAD, vein graft to diagonal and obtuse marginal, and collaterals from RCA by catheterization 01/2017; No new blockages/ischemia seen on stress test 9 Anemia s/p iron infusions- last iron infusion June 2023 Medical History (Updated 08/25/24 @ 01:29 by Gatito West DO) CHF (congestive heart failure) EF 40-45% per 09/2022 ECHO Closed fracture of left proximal humerus Ileus, postoperative Postoperative fever Acute blood loss as cause of postoperative anemia Atrial fibrillation On Eliquis Ischemic cardiomyopathy History of panic attacks worse with large groups History of stomach ulcers 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, twitching and left eye tearing Peripheral neuropathy Migraine Surgical History History of coronary artery bypass graft x4 vessel bypass (~2001/2002) [facility] in [place] x3 vessel bypass (~2009) [facility] [place] follows with Dr Borja ([place]) Family history of reaction to anesthesia DAUGHTER>SLOW TO WAKE UP History of esophagogastroduodenoscopy (EGD) History of colonoscopy H/O abdominal surgery 25-30 YEARS AGO>PART OF STOMACH/COLON/PANCREAS REMOVED D/T STOMACH ULCER History of tooth extraction History of cataract surgery RT/LEFT History of cardiac cath MULTIPLE CATH'S DONE>NO SENTS ([facility]) most recently done in the last five years ([id number]) done at [facility]. no stents. History of total hysterectomy History of cholecystectomy History of appendectomy Family History Daughter Family hx of colon cancer Family history of diabetes mellitus FHx: thyroid cancer Sister Family history of diabetes mellitus Brother FHx: kidney cancer Family history of diabetes mellitus FHx: pancreatic cancer Social History Smoking Status: Current every day smoker Tobacco Type: Cigarettes Cigarettes Per Day: 1ppd; Second Hand Exposure: Yes; Do You Dip or Chew Tobacco: No; Hx Alcohol Use: No Hx Substance Use: No Preferred Language: Argentine Communication Ability: Effective Charge Nurse Required: No Beliefs That Will Affect Care: None Current Living Situation: Spouse Current Living Situation Comment: 2 story home, only lives on 1 floor Feels Safe at Home: Yes Assistive Devices: Cane and Walker Allergies Allergies Allergy/AdvReac Type Severity Reaction Status Date / Time benzyl alcohol Allergy Severe Anaphylaxis Verified 08/15/23 05:44 Iodinated Contrast Media Allergy Severe Rash - IVP Verified 08/15/23 05:44 dye lisinopril Allergy Severe chills,sera Verified 08/15/23 05:44 rs prochlorperazine Allergy Severe Anaphylaxis Verified 08/15/23 05:44 saccharin Allergy Severe Anaphylaxis Verified 08/15/23 05:44 simvastatin Allergy Intermediate itching Verified 08/15/23 05:44 furosemide Allergy Mild rash Verified 08/15/23 05:44 promethazine Allergy Mild rash Verified 08/15/23 05:44 Home Meds Home Medications Medication Instructions Recorded Confirmed gabapentin 800 mg tablet 800 mg PO QID 01/02/22 08/01/24 isosorbide mononitrate 30 mg 30 mg PO QAM 01/02/22 08/01/24 tablet,extended release 24 hr lorazepam 1 mg tablet 1 mg PO QID severe anxiety 01/02/22 08/01/24 omeprazole 40 mg capsule,delayed 40 mg PO BID 01/02/22 08/01/24 release albuterol sulfate 90 mcg/actuation 2 puff inhalation Q4H PRN Wheezing 01/03/22 08/01/24 aerosol inhaler pravastatin 40 mg tablet 40 mg PO HS 01/03/22 08/01/24 nitroglycerin 0.4 mg sublingual 0.4 mg buccal UD PRN Chest Pain 02/27/22 08/01/24 tablet apixaban 5 mg tablet (Eliquis) 5 mg PO BID 11/28/22 08/01/24 losartan 100 mg tablet 100 mg PO HS 11/28/22 08/01/24 spironolactone 50 mg tablet 50 mg PO BID 11/28/22 08/01/24 (Aldactone) metoprolol succinate 50 mg 50 mg PO DAILY 07/24/23 08/01/24 tablet,extended release 24 hr trazodone 150 mg tablet 150 mg PO HS 07/24/23 08/01/24 calcitonin (salmon) 200 See Rx Instructions .Route .COMPLEX 08/01/24 08/01/24 unit/actuation nasal spray Previous Rx's Medication Instructions Recorded amoxicillin 875 mg-potassium 1 tab PO BID #16 tabs 08/04/24 clavulanate 125 mg tablet magnesium oxide 400 mg (241.3 mg 400 mg PO BID #10 tabs 08/04/24 magnesium) tablet potassium chloride 10 mEq 10 meq PO DAILY #5 tabs 08/04/24 tablet,extended release vancomycin 125 mg capsule 125 mg PO Q6H #32 caps 08/04/24 Results & Data (ED) Vital Signs Vital Signs - 24 hr 08/24/24 22:04 08/24/24 22:23 08/24/24 22:32 Temperature 37.2 C Temperature Source Oral Pulse Rate 85 83 Pulse Rate [Apical] Respiratory Rate 14 Blood Pressure 87/50 L Blood Pressure [Right Arm] Blood Pressure Mean 62 Blood Pressure Mean [Right Arm] Pulse Oximetry 74 L 79 L Oxygen Delivery Method Room Air Room Air Oxygen Flow Rate 0 Sepsis Recent Fever Within 48 Hours No Sepsis New/Unexplained Change in Mental Status N/A Sepsis Action Taken by Nursing No Action Required Oxygen Flow Rate - Titration 4 Pulse Oximetry Post Tiitration 92 08/24/24 22:32 08/24/24 23:00 08/25/24 00:00 Temperature Temperature Source Pulse Rate 79 79 Pulse Rate [Apical] 84 Respiratory Rate 16 16 14 Blood Pressure 88/57 L 97/65 L Blood Pressure [Right Arm] 98/61 L Blood Pressure Mean 67 72 Blood Pressure Mean [Right Arm] 73 Pulse Oximetry 94 94 93 Oxygen Delivery Method Nasal Cannula Nasal Cannula Nasal Cannula Oxygen Flow Rate 4 4 4 Sepsis Recent Fever Within 48 Hours Sepsis New/Unexplained Change in Mental Status Sepsis Action Taken by Nursing Oxygen Flow Rate - Titration Pulse Oximetry Post Tiitration Laboratory Data 08/24/24 22:30 08/24/24 22:30 Lab Results 08/24/24 08/25/24 08/25/24 Range/Units 22:30 00:01 00:33 WBC 14.49 H (4.8-10.8) K/ul RBC 3.24 L (4.20-5.40) M/uL Hgb 11.4 L (12.0-16.0) g/dl Hct 36.0 L (37.0-47.0) % MCV 111.1 H (80.0-100.0) fL MCH 35.2 H (25.0-34.0) pg MCHC 31.7 L (32.0-36.0) g/dL RDW Std Deviation 56.5 H (36.4-46.3) fL RDW Coeff of Naman 13.7 (11.5-14.5) % Plt Count 186 (130-400) K/uL MPV 11.0 (9.4-12.4) fL Immature Gran % (Auto) 0.3 % Neut % (Auto) 90.8 % Lymph % (Auto) 4.4 % [place] % (Auto) 4.3 % Eos % (Auto) 0.1 % Baso % (Auto) 0.1 % Neut # (Auto) 13.14 H (1.40-6.50) K/uL Lymph # (Auto) 0.64 L (1.20-3.40) K/uL [place] # (Auto) 0.62 H (0.11-0.59) K/uL Eos # (Auto) 0.02 (0.00-0.50) K/uL Baso # (Auto) 0.02 (0.00-0.20) K/uL Immature Gran # (Auto) 0.05 (0.01-0.20) K/uL Polychromasia 2+ Macrocytosis Present PT 13.4 H (9.0-12.0) Seconds INR 1.3 H (0.9-1.1) Sodium 137 (136-145) mmol/L Potassium 3.8 (3.5-5.1) mmol/L Chloride 107 (98-107) mmol/L Carbon Dioxide 23 (21-32) mmol/L Anion Gap 7 (3-11) BUN 12 (6-23) mg/dl Creatinine 0.96 (0.6-1.2) mg/dl Est Cr Clr Drug Dosing 52.3 ml/min eGFR 64.05 BUN/Creatinine Ratio 12.5 (10-20) Glucose 182 H (70-99(Fasting)) mg/dl Calcium 8.2 L (8.6-10.3) mg/dl Total Bilirubin 0.3 (0.2-1.0) mg/dl AST 31 (13-39) U/L ALT 14 (7-52) U/L Alkaline Phosphatase 114 H (34-104) U/L Ammonia 44.0 (18-72) umol/L Troponin I High Sens 51.0 H* (0-14) pg/ml Total Protein 5.2 L (6.0-8.3) gm/dl Albumin 2.9 L (3.4-5.0) gm/dl Globulin 2.3 L (2.5-4.0) gm/dl Albumin/Globulin Ratio 1.3 (0.9-2) Lipase 8 L (11-82) U/L Urine Opiates Screen Pos H (Neg) Ur Methadone, Qual Neg (Neg) Urine Fentanyl Screen Neg (Neg) Urine Barbiturates Neg (Neg) Ur Phencyclidine (PCP) Neg (Neg) U Amphetamin/Meth Scrn Neg (Neg) MDMA (Ecstasy) Screen Neg (Neg) U Benzodiazepines Scrn Neg (Neg) Ur Cocaine Metabolite Neg (Neg) U Marijuana (THC) Screen Neg (Neg) Ethyl Alcohol mg/dL < 10.0 (<10.0) mg/dl Adenovirus (PCR) Not Detected (NotDetected) B. pertussis DNA (PCR) Not Detected (NotDetected) B.parapertussis DNA PCR Not Detected (NotDetected) C. pneumoniae DNA (PCR) Not Detected (NotDetected) Coronavirus OC43 (PCR) Not Detected (NotDetected) Coronavirus HKU1 (PCR) Not Detected (NotDetected) Coronavirus 229E (PCR) Not Detected (NotDetected) SARS-CoV-2 (PCR) Not Detected (NotDetected) Coronavirus NL63 (PCR) Not Detected (NotDetected) Human Metapneumovir PCR Not Detected (NotDetected) Influenza Type A (PCR) Not Detected (NotDetected) Influenza Type B (PCR) Not Detected (NotDetected) M. pneumoniae (PCR) Not Detected (NotDetected) Parainfluenza 1 (PCR) Not Detected (NotDetected) Parainfluenza 2 (PCR) Not Detected (NotDetected) Parainfluenza 3 (PCR) Not Detected (NotDetected) Parainfluenza 4 (PCR) Not Detected (NotDetected) RSV (PCR) Not Detected (NotDetected) Entero/Rhino (PCR) Not Detected (NotDetected) 08/25/24 Range/Units 00:40 WBC (4.8-10.8) K/ul RBC (4.20-5.40) M/uL Hgb (12.0-16.0) g/dl Hct (37.0-47.0) % MCV (80.0-100.0) fL MCH (25.0-34.0) pg MCHC (32.0-36.0) g/dL RDW Std Deviation (36.4-46.3) fL RDW Coeff of Naman (11.5-14.5) % Plt Count (130-400) K/uL MPV (9.4-12.4) fL Immature Gran % (Auto) % Neut % (Auto) % Lymph % (Auto) % [place] % (Auto) % Eos % (Auto) % Baso % (Auto) % Neut # (Auto) (1.40-6.50) K/uL Lymph # (Auto) (1.20-3.40) K/uL [place] # (Auto) (0.11-0.59) K/uL Eos # (Auto) (0.00-0.50) K/uL Baso # (Auto) (0.00-0.20) K/uL Immature Gran # (Auto) (0.01-0.20) K/uL Polychromasia Macrocytosis PT (9.0-12.0) Seconds INR (0.9-1.1) Sodium (136-145) mmol/L Potassium (3.5-5.1) mmol/L Chloride (98-107) mmol/L Carbon Dioxide (21-32) mmol/L Anion Gap (3-11) BUN (6-23) mg/dl Creatinine (0.6-1.2) mg/dl Est Cr Clr Drug Dosing ml/min eGFR BUN/Creatinine Ratio (10-20) Glucose (70-99(Fasting)) mg/dl Calcium (8.6-10.3) mg/dl Total Bilirubin (0.2-1.0) mg/dl AST (13-39) U/L ALT (7-52) U/L Alkaline Phosphatase (34-104) U/L Ammonia (18-72) umol/L Troponin I High Sens 200.1 H* D (0-14) pg/ml Total Protein (6.0-8.3) gm/dl Albumin (3.4-5.0) gm/dl Globulin (2.5-4.0) gm/dl Albumin/Globulin Ratio (0.9-2) Lipase (11-82) U/L Urine Opiates Screen (Neg) Ur Methadone, Qual (Neg) Urine Fentanyl Screen (Neg) Urine Barbiturates (Neg) Ur Phencyclidine (PCP) (Neg) U Amphetamin/Meth Scrn (Neg) MDMA (Ecstasy) Screen (Neg) U Benzodiazepines Scrn (Neg) Ur Cocaine Metabolite (Neg) U Marijuana (THC) Screen (Neg) Ethyl Alcohol mg/dL (<10.0) mg/dl Adenovirus (PCR) (NotDetected) B. pertussis DNA (PCR) (NotDetected) B.parapertussis DNA PCR (NotDetected) C. pneumoniae DNA (PCR) (NotDetected) Coronavirus OC43 (PCR) (NotDetected) Coronavirus HKU1 (PCR) (NotDetected) Coronavirus 229E (PCR) (NotDetected) SARS-CoV-2 (PCR) (NotDetected) Coronavirus NL63 (PCR) (NotDetected) Human Metapneumovir PCR (NotDetected) Influenza Type A (PCR) (NotDetected) Influenza Type B (PCR) (NotDetected) M. pneumoniae (PCR) (NotDetected) Parainfluenza 1 (PCR) (NotDetected) Parainfluenza 2 (PCR) (NotDetected) Parainfluenza 3 (PCR) (NotDetected) Parainfluenza 4 (PCR) (NotDetected) RSV (PCR) (NotDetected) Entero/Rhino (PCR) (NotDetected) Administered Medications Discontinued Medications Sodium Chloride (Nss) 1,000 mls @ 999 mls/hr IV .Q1H1M ONE Stop: 08/25/24 00:07 Last Infusion: 08/25/24 00:08 Dose: Infused Documented By: Admin: 08/24/24 23:11 Dose: 999 mls/hr Documented By: WINSTON Naloxone HCl (Naloxone Hcl 0.4 Mg/1 Ml Vial/Carp) 0.4 mg IV NOW STA Stop: 08/24/24 23:07 Last Admin: 08/24/24 23:11 Dose: 0.4 mg Documented By: WINSTON Imaging Data Radiologist's Impression: Chest X-Ray 08/24/24 23:06 Exam(s): XR CXR 1 VIEW EXAM: XR Chest, 1 View CLINICAL HISTORY: Reason for exam: AMS. TECHNIQUE: Frontal view of the chest. COMPARISON: August 01, 2024. IMPRESSION: The right chest is clear. There is new scattered volume loss in the left lung with some pleural thickening laterally. No evidence of pneumothorax. Electronically signed by: Ricky Colon MD 08/25/24 01:[address] 08/24/24 23:07 Exam(s): CT HEAD Without Contrast EXAM: CT Head Without Intravenous Contrast CLINICAL HISTORY: AMS. TECHNIQUE: Axial computed tomography images of the head/brain without intravenous contrast. CTDI is 49.11 mGy and DLP is 764.9 mGy-cm. Automated exposure control was utilized for the study. A dose lowering technique was utilized adhering to the principles of ALARA. COMPARISON: CT August 01, 2024 FINDINGS: Brain: No acute intracranial hemorrhage, edema or abnormal mass-effect. Ventricles: Unremarkable. No ventriculomegaly. Bones/joints: Unremarkable. No acute fracture. Soft tissues: Unremarkable. Sinuses: Unremarkable as visualized. No acute sinusitis. Mastoid air cells: Unremarkable as visualized. No mastoid effusion. IMPRESSION: No acute intracranial abnormality. Electronically signed by: Ricky Colon MD 08/25/24 01:12 AM Discharge Plan Visit Data Chief Complaint: Overdose (Accidental) Stated Complaint: WAS UNRESPONSIVE, GIVEN NARCAN ED Provider: Gatito West Discharge Problem: Encephalopathy Forms Stand Alone Forms: My [facility] Prescriptions Prescriptions: No Action losartan 100 mg tablet 100 mg PO HS Hold Instructions: until pcp follow up spironolactone [Aldactone] 50 mg tablet 50 mg PO BID Hold Instructions: until pcp follow up Eliquis 5 mg tablet 5 mg PO BID isosorbide mononitrate 30 mg tablet extended release 24 hr 30 mg PO QAM gabapentin 800 mg tablet 800 mg PO QID omeprazole 40 mg capsule,delayed release(DR/EC) 40 mg PO BID lorazepam 1 mg tablet 1 mg PO QID pravastatin 40 mg tablet 40 mg PO HS albuterol sulfate 90 mcg/actuation HFA aerosol inhaler 2 puff INHALATION Q4H PRN (Reason: Wheezing) nitroglycerin 0.4 mg Tablet, Sublingual 0.4 mg buccal UD PRN (Reason: Chest Pain) trazodone 150 mg Tablet 150 mg PO HS Rx Instructions: only takes 50mg HS in hospital setting metoprolol succinate 50 mg tablet extended release 24 hr 50 mg PO DAILY calcitonin (salmon) 200 unit/actuation spray,non-aerosol See Rx Instructions .ROUTE .COMPLEX Rx Instructions: ADMINISTER 1 SPRAY INTO ONE NOSTRIL IN THE MORNING. ALTERNATE NOSTRILS. vancomycin 125 mg capsule 125 mg PO Q6H Qty: 32 0RF amoxicillin-pot clavulanate 875-125 mg tablet 1 tab PO BID Qty: 16 0RF magnesium oxide 400 mg (241.3 mg magnesium) Tablet 400 mg PO BID Qty: 10 0RF potassium chloride 10 mEq tablet extended release 10 meq PO DAILY Qty: 5 0RF Referrals Referrals: Akbar Daniel DO [Primary Care Provider] -
[2024-08-24] MEDS: SODIUM CHLORIDE 0.9% 1,000 ML IV ONE (23:11)
[2024-08-24] MEDS: NALOXONE HCL 0.4 MG/1 ML VIAL/CARP IV STA (23:11)
[2024-08-24 23:23] LABS: Hemoglobin 11.4 g/dl (12.0-16.0); Mean Corpuscular Hemoglobin 35.2 pg (25.0-34.0); Mean Corpuscular Hgb Conc 31.7 g/dL (32.0-36.0); Mean Corpuscular Volume 111.1 fL (80.0-100.0); Platelet Count 186 K/uL (130-400); RDW Coefficient of Variation 13.7 % (11.5-14.5); RDW Standard Deviation 56.5 fL (36.4-46.3); Red Blood Count 3.24 M/uL (4.20-5.40); White Blood Count 14.49 K/ul (4.8-10.8)
[2024-08-24 23:29] LABS: Albumin Globulin Ratio 1.3 (0.9-2); Albumin Level 2.9 gm/dl (3.4-5.0); BUN Creatinine Ratio 12.5 (10-20); Bilirubin,Total 0.3 mg/dl (0.2-1.0); Calcium 8.2 mg/dl (8.6-10.3); Creatinine Clr Calc Pharmacy 52.3 ml/min; Globulin 2.3 gm/dl (2.5-4.0); Potassium 3.8 mmol/L (3.5-5.1); Total Protein 5.2 gm/dl (6.0-8.3)
[2024-08-24 23:52] LABS: Basophils # (auto) 0.02 K/uL (0.00-0.20); Basophils % (auto) 0.1 %; Eosinophils # (auto) 0.02 K/uL (0.00-0.50); Eosinophils % (auto) 0.1 %; Immature Granulocytes # (auto) 0.05 K/uL (0.01-0.20); Immature Granulocytes % (auto) 0.3 %; Lymphocytes # (auto) 0.64 K/uL (1.20-3.40); Lymphocytes % (auto) 4.4 %; Macrocytosis Present; Monocytes # (auto) 0.62 K/uL (0.11-0.59); Monocytes % (auto) 4.3 %; Neutrophils # (auto) 13.14 K/uL (1.40-6.50); Neutrophils % (auto) 90.8 %; Polychromasia 2+
[2024-08-24 23:57] LABS: INR 1.3 (0.9-1.1); Prothrombin Time 13.4 Seconds (9.0-12.0)
[2024-08-25 00:42] LABS: Amphetamines+Metham, Urine Neg (Neg); Barbiturates, Urine Neg (Neg); Benzodiazepine, Urine Neg (Neg); Cocaine, Urine Neg (Neg); Fentanyl, Urine Neg (Neg); MDMA (Ecstacy), Urine Neg (Neg); Marijuana, Urine Neg (Neg); Methadone, Urine Neg (Neg); Opiate, Urine Pos (Neg); Phencyclidine, Urine Neg (Neg)
--- NOTE | 2024-08-25 01:13 | CT Scan Report ---
Exam(s): CT HEAD Without Contrast EXAM: CT Head Without Intravenous Contrast CLINICAL HISTORY: AMS. TECHNIQUE: Axial computed tomography images of the head/brain without intravenous contrast. CTDI is 49.11 mGy and DLP is 764.9 mGy-cm. Automated exposure control was utilized for the study. A dose lowering technique was utilized adhering to the principles of ALARA. COMPARISON: CT August 01, 2024 FINDINGS: Brain: No acute intracranial hemorrhage, edema or abnormal mass-effect. Ventricles: Unremarkable. No ventriculomegaly. Bones/joints: Unremarkable. No acute fracture. Soft tissues: Unremarkable. Sinuses: Unremarkable as visualized. No acute sinusitis. Mastoid air cells: Unremarkable as visualized. No mastoid effusion. IMPRESSION: No acute intracranial abnormality. Electronically signed by: Ricky Colon MD 08/25/24 01:12 AM
[2024-08-25 01:27] LABS: Adenovirus PCR Not Detected (NotDetected); Bordetella parapertussis PCR Not Detected (NotDetected); Bordetella pertussis PCR Not Detected (NotDetected); Chlamydia pneumoniae PCR Not Detected (NotDetected); Coronavirus 229E PCR Not Detected (NotDetected); Coronavirus CoV-2 (COVID19)PCR Not Detected (NotDetected); Coronavirus HKU1 PCR Not Detected (NotDetected); Coronavirus NL63 PCR Not Detected (NotDetected); Coronavirus OC43PCR Not Detected (NotDetected); Human Metapneumovirus PCR Not Detected (NotDetected); Influenza A PCR Not Detected (NotDetected); Influenza B PCR Not Detected (NotDetected); Mycoplasma pneumoniae PCR Not Detected (NotDetected); Parainfluenza Virus 1 PCR Not Detected (NotDetected); Parainfluenza Virus 2 PCR Not Detected (NotDetected); Parainfluenza Virus 3 PCR Not Detected (NotDetected); Parainfluenza Virus 4 PCR Not Detected (NotDetected); Respiratory Syncytial VirusPCR Not Detected (NotDetected); Rhinovirus/Enterovirus PCR Not Detected (NotDetected)
--- NOTE | 2024-08-25 01:36 | XRay Report ---
Exam(s): XR CXR 1 VIEW EXAM: XR Chest, 1 View CLINICAL HISTORY: Reason for exam: AMS. TECHNIQUE: Frontal view of the chest. COMPARISON: August 01, 2024. IMPRESSION: The right chest is clear. There is new scattered volume loss in the left lung with some pleural thickening laterally. No evidence of pneumothorax. Electronically signed by: Ricky Colon MD 08/25/24 01:35 AM
--- NOTE | 2024-08-25 02:36 | History & Physical Report ---
Date of Service August 25, 2024 Assessment & Plan (1) Encephalopathy: Plan: 68-year-old female with past medical history significant for type 2 diabetes, hyperlipidemia, COPD, CAD status post CABG, heart failure with reduced ejection fraction, paroxysmal atrial fibrillation, peripheral artery disease status post femoral-popliteal bypass surgery, hypertension, mitral valve disease, B12 deficiency, osteoporosis, backache, migraines, iron deficiency anemia, tobacco use use disorder, anxiety, who lives at home with her and ambulates with a cane was brought in because of lethargy and altered mental status. Currently the patient is alert and awake and oriented x 3. Somewhat hard of hearing. Patient recently started oxycodone for back pain. She states she only took 3 tablets of oxycodone so far and last dose was 10 PM tonight. Seems has been found lethargic tonight and was unable to wake her up. EMS was called. For EMS after Narcan in the field patient became more responsive. In the ER patient was hypotensive and was saturating okay on nasal cannula. Currently patient denies any headache. No blurred vision. No runny nose or sore throat. Has mild chronic cough. Denies any difficulty swallowing. Denies any chest pain or shortness of breath. Currently no nausea. No abdominal pain. Patient states she has chronic diarrhea for many years and has 5-7 bowel movements a day. Recently was treated for C. difficile colitis. She is micturating okay. Recent last admission because of hypotension BP meds were held except beta-atif. She followed up with the PCP. Losartan 50 mg were restarted but Aldactone was held because of ongoing diarrhea and metoprolol and Imdur were continued. At home her blood pressure was running high in 200s and PCP was notified and and as per [facility] notes was advised to increase losartan to 100 mg and restart spironolactone 50 mg daily. Patient says she started losartan 100 mg daily but she does not know anything about restarting spironolactone. Patient states still her blood pressure usually running high at home. Encephalopathy Mostly from medications Patient recently started oxycodone Patient is already on gabapentin, trazodone Improved after Narcan Was hypotensive on presentation Currently alert and oriented x 3 CT head is okay Gentle fluids for 1 L Closely monitor telemetry Possible copd exacerbation could contributed to AMS diminished breath sounds and co2 retention on vbg But patient currently seems awake and oriented will place on bipap and nebs and follow repeat vbg/abg Elevated troponin Non-ST FL Mostly demand ischemia Initial troponin 51 and repeat is 200 Patient currently symptomatic EKG no acute findings Patient already took Eliquis Will follow serial enzymes and echo Will keep her n.p.o. Telemetry Cardiology consult in a.m. for further recommendations Chronic diarrhea Recent C. difficile colitis has leukocytosis Recheck for C. difficile Hypertension Currently blood pressure is soft Will continue with the metoprolol and Imdur with holding parameters Hold losartan for now At home blood pressure is running high Recently from last admit Aldactone and losartan were stopped for hypotension and losartan 50mg was started as outpatient initially but later per outpatient epic notes was advised to restart Aldactone 50mg and increase losartan to 100mg as blood pressure was running high, but patient is currently only on losartan 100mg and not started on Aldactone Close monitor To adjust blood pressure medications Type 2 diabetes Not on meds Will follow HbA1c levels Will follow blood sugars History of CAD status post CABG On Eliquis statin and beta-atif Paroxysmal atrial fibrillation On metoprolol succinate and Eliquis Will monitor Chronic heart failure with reduced ejection fraction EF 40 to 45% Currently patient not taking Aldactone on metoprolol succinate Currently losartan on hold for hypotension Monitor for volume overload Cardiology consulted Peripheral artery disease On statin and Eliquis Hyperlipidemia On statin Chronic backache Will hold oxycodone and gabapentin for now Iron deficiency anemia B12 deficiency Hemoglobin 11.4 today Follow-up Prolonged QTc will follow repeat EKG Avoid QT prolonging drugs hx of hypokalemia and hypomagnesia 'will follow labs Ongoing tobacco abuse needs counselling nicotine patch DVT prophylaxis On Eliquis Disposition Telemetry Full code. History of Present Illness Chief Complaint: Altered mental status Primary Care Provider: Akbar Daniel DO 68-year-old female with past medical history significant for type 2 diabetes, hyperlipidemia, COPD, CAD status post CABG, heart failure with reduced ejection fraction, paroxysmal atrial fibrillation, peripheral artery disease status post femoral-popliteal bypass surgery, hypertension, mitral valve disease, B12 deficiency, osteoporosis, backache, migraines, iron deficiency anemia, tobacco use use disorder, anxiety, who lives at home with her and ambulates with a cane was brought in because of lethargy and altered mental status. Currently the patient is alert and awake and oriented x 3. Somewhat hard of hearing. Patient recently started oxycodone for back pain. She states she only took 3 tablets of oxycodone so far and last dose was 10 PM tonight. Seems has been found lethargic tonight and was unable to wake her up. EMS was called. For EMS after Narcan in the field patient became more responsive. In the ER patient was hypotensive and was saturating okay on nasal cannula. Currently patient denies any headache. No blurred vision. No runny nose or sore throat. Has mild chronic cough. Denies any difficulty swallowing. Denies any chest pain or shortness of breath. Currently no nausea. No abdominal pain. Patient states she has chronic diarrhea for many years and has 5-7 bowel movements a day. Recently was treated for C. difficile colitis. She is micturating okay. Recent last admission because of hypotension BP meds were held except beta-atif. She followed up with the PCP. Losartan 50 mg were re started but Aldactone was held because of ongoing diarrhea and metoprolol and Imdur were continued. At home her blood pressure was running high in 200s and PCP was notified and and as per [facility] notes was advised to increase losartan to 100 mg and restart spironolactone 50 mg daily. Patient says she started losartan 100 mg daily but she does not know anything about restarting spironolactone. Patient states still her blood pressure usually running high at home. Past medical history. As mentioned above Past surgical history. CABG. Small bowel resection. Appendectomy. Bilateral cataracts. Cholecystectomy. Whipple's procedure. Removal of partial stomach. Tonsillectomy adenoidectomy. Social history. . Quit smoking 1966. Smoking1 pack a day . No alcohol use with no drug use. Family history. No family history on file. Allergies Allergy/AdvReac Type Severity Reaction Status Date / Time benzyl alcohol Allergy Severe Anaphylaxis Verified 08/15/23 05:44 Iodinated Contrast Media Allergy Severe Rash - IVP Verified 08/15/23 05:44 dye lisinopril Allergy Severe chills,sera Verified 08/15/23 05:44 rs prochlorperazine Allergy Severe Anaphylaxis Verified 08/15/23 05:44 saccharin Allergy Severe Anaphylaxis Verified 08/15/23 05:44 simvastatin Allergy Intermediate itching Verified 11/29/23 05:44 furosemide Allergy Mild rash Verified 08/15/23 05:44 promethazine Allergy Mild rash Verified 08/15/23 05:44 Home Medications Medication Instructions Recorded Confirmed Type albuterol sulfate 90 mcg/actuation 2 inh inhalation Q4H PRN sob 08/25/24 08/25/24 History aerosol inhaler apixaban 5 mg tablet (Eliquis) 5 mg PO BID 08/25/24 08/25/24 History calcitonin (salmon) 200 1 spray intranasal DAILY 08/25/24 08/25/24 History unit/actuation nasal spray fluticasone propionate 50 1 spray intranasal BID 08/25/24 08/25/24 History mcg/actuation nasal spray,suspension gabapentin 800 mg tablet 800 mg PO TID 08/25/24 08/25/24 History isosorbide mononitrate 30 mg 30 mg PO DAILY 08/25/24 08/25/24 History tablet,extended release 24 hr loperamide 2 mg capsule 2 mg PO TID PRN Diarrhea 08/25/24 08/25/24 History losartan 50 mg tablet 100 mg PO DAILY 08/25/24 08/25/24 History metoprolol succinate 50 mg 50 mg PO DAILY 08/25/24 08/25/24 History tablet,extended release 24 hr omeprazole 40 mg capsule,delayed 40 mg PO DAILY 08/25/24 08/25/24 History release oxycodone 5 mg tablet 5 mg PO Q4H PRN Pain 08/25/24 08/25/24 History pravastatin 40 mg tablet 40 mg PO DAILY 08/25/24 08/25/24 History trazodone 150 mg tablet 150 mg PO HS 08/25/24 08/25/24 History Past Med/Surg History Problem List (Updated 08/25/24 @ 01:29 by Gatito West DO) Encephalopathy (Acute) Colitis Chronic HFrEF (heart failure with reduced ejection fraction) EF 40-45% per 09/2022 ECHO HAYDEN (acute kidney injury) (Acute) Generalized weakness Paroxysmal atrial fibrillation Atherosclerosis of artery of both lower extremities Current smoker COPD with emphysema Polycythemia Prediabetes pt denies PAD (peripheral artery disease) Myocardial Infarction unsure of date - 2009 or earlier. Hyperlipidemia Hypertension GERD (gastroesophageal reflux disease) Well controlled and stable Anxiety CAD (coronary artery disease) CABG x 4 2002, CABG x 3 2009 Patent PONCE to LAD, vein graft to diagonal and obtuse marginal, and collaterals from RCA by catheterization 01/2017; No new blockages/ischemia seen on stress test 9 Anemia s/p iron infusions- last iron infusion June 2023 Medical History (Updated 08/25/24 @ 01:29 by Gatito West DO) CHF (congestive heart failure) EF 40-45% per 09/2022 ECHO Closed fracture of left proximal humerus Ileus, postoperative Postoperative fever Acute blood loss as cause of postoperative anemia Atrial fibrillation On Eliquis Ischemic cardiomyopathy History of panic attacks worse with large groups History of stomach ulcers 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 [place] follows with Dr Borja ([place]) Family history of reaction to anesthesia DAUGHTER>SLOW TO WAKE UP History of esophagogastroduodenoscopy (EGD) History of colonoscopy H/O abdominal surgery 25-30 YEARS AGO>PART OF STOMACH/COLON/PANCREAS REMOVED D/T STOMACH ULCER History of tooth extraction History of cataract surgery RT/LEFT History of cardiac cath MULTIPLE CATH'S DONE>NO SENTS ([facility]) most recently done in the last five years ([id number]) [facility] no stents. 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 ENT- oropharynx clear Neck- supple, no JVD. Lungs- clear to auscultation no wheezing or crackles Heart- regular rhythm; no murmur, no gallop. Abdomen- normal bowel sounds, soft, nontender, no distension. Extremities- no pretibial edema, no erythema seen. Neuro- alert, oriented x 3; PERRL, no facial palsy; no dysarthria; obeys commands,moves extremities. Results & Data Results & Data Vital Signs (Past 12 Hours) Vital Signs Temp Pulse Pulse Resp BP BP Pulse Ox 08/25/24 01:30 78 14 93/53 L 94 08/25/24 01:00 76 16 98/59 L 93 08/25/24 00:32 77 14 97/59 L 93 08/25/24 00:00 79 14 97/65 L 93 08/24/24 23:00 79 16 88/57 L 94 08/24/24 22:32 84 16 98/61 L 94 08/24/24 22:32 37.2 C 83 14 87/50 L 79 L 08/24/24 22:23 85 08/24/24 22:04 74 L O2 Del Method O2 Flow Rate 08/25/24 01:30 Nasal Cannula 4 08/25/24 01:00 Nasal Cannula 4 08/25/24 00:32 Nasal Cannula 4 08/25/24 00:00 Nasal Cannula 4 08/24/24 23:00 Nasal Cannula 4 08/24/24 22:32 Nasal Cannula 4 08/24/24 22:32 Room Air 08/24/24 22:23 08/24/24 22:04 Room Air 0 Diagnostic Findings Laboratory Results WBC 14.49 K/ul (4.8-10.8) H 08/24/24 22:30 RBC 3.24 M/uL (4.20-5.40) L 08/24/24 22:30 Hgb 11.4 g/dl (12.0-16.0) L 08/24/24 22:30 Hct 36.0 % (37.0-47.0) L 08/24/24 22:30 MCV 111.1 fL (80.0-100.0) H 08/24/24 22:30 MCH 35.2 pg (25.0-34.0) H 08/24/24 22:30 MCHC 31.7 g/dL (32.0-36.0) L 08/24/24: RDW Std Deviation 56.5 fL (36.4-46.3) H 08/24/24 22:30 RDW Coeff of Naman 13.7 % (11.5-14.5) 08/24/24 22:30 Plt Count 186 K/uL (130-400) 08/24/24 22:30 MPV 11.0 fL (9.4-12.4) 08/24/24 22:30 Immature Gran % (Auto) 0.3 % 08/24/24 22:30 Neut % (Auto) 90.8 % 08/24/24 22:30 Lymph % (Auto) 4.4 % 08/24/24 22:30 Pepin % (Auto) 4.3 % 08/24/24 22:30 Eos % (Auto) 0.1 % 08/24/24 22:30 Baso % (Auto) 0.1 % 08/24/24 22:30 Neut # (Auto) 13.14 K/uL (1.40-6.50) H 08/24/24 22:30 Lymph # (Auto) 0.64 K/uL (1.20-3.40) L 08/24/24 22:30 Pepin # (Auto) 0.62 K/uL (0.11-0.59) H 08/24/24 22:30 Eos # (Auto) 0.02 K/uL (0.00-0.50) 08/24/24 22:30 Baso # (Auto) 0.02 K/uL (0.00-0.20) 08/24/24 22:30 Immature Gran # (Auto) 0.05 K/uL (0.01-0.20) 08/24/24 22:30 Polychromasia 2+ 08/24/24 22:30 Macrocytosis Present 08/24/24 22:30 PT 13.4 Seconds (9.0-12.0) H 08/24/24 22:30 INR 1.3 (0.9-1.1) H 08/24/24 22:30 Sodium 137 mmol/L (136-145) 08/24/24 22:30 Potassium 3.8 mmol/L (3.5-5.1) 08/24/24 22:30 Chloride 107 mmol/L (98-107) 08/24/24 22:30 Carbon Dioxide 23 mmol/L (21-32) 08/24/24 22:30 Anion Gap 7 (3-11) 08/24/24 22:30 BUN 12 mg/dl (6-23) 08/24/24 22:30 Creatinine 0.96 mg/dl (0.6-1.2) 08/24/24 22:30 Est Cr Clr Drug Dosing 52.3 ml/min 08/24/24 22:30 eGFR 64.05 08/24/24 22:30 BUN/Creatinine Ratio 12.5 (10-20) 08/24/24 22:30 Glucose 182 mg/dl (70-99(Fasting)) H 08/24/24 22:30 Calcium 8.2 mg/dl (8.6-10.3) L 08/24/24 22:30 Total Bilirubin 0.3 mg/dl (0.2-1.0) 08/24/24 22:30 AST 31 U/L (13-39) 08/24/24 22:30 ALT 14 U/L (7-52) 08/24/24 22:30 Alkaline Phosphatase 114 U/L (34-104) H 08/24/24 22:30 Ammonia 44.0 umol/L (18-72) 08/25/24 00:33 Troponin I High Sens 200.1 pg/ml (0-14) H* D 08/25/24 00:40 Total Protein 5.2 gm/dl (6.0-8.3) L 08/24/24 22:30 Albumin 2.9 gm/dl (3.4-5.0) L 08/24/24 22:30 Globulin 2.3 gm/dl (2.5-4.0) L 08/24/24 22:30 Albumin/Globulin Ratio 1.3 (0.9-2) 08/24/24 22:30 Lipase 8 U/L (11-82) L 08/24/24 22:30 Urine Opiates Screen Pos (Neg) H 08/25/24 00:01 Ur Methadone, Qual Neg (Neg) 08/25/24 00:01 Urine Fentanyl Screen Neg (Neg) 08/25/24 00:01 Urine Barbiturates Neg (Neg) 08/25/24 00:01 Ur Phencyclidine (PCP) Neg (Neg) 08/25/24 00:01 U Amphetamin/Meth Scrn Neg (Neg) 08/25/24 00:01 MDMA (Ecstasy) Screen Neg (Neg) 08/25/24 00:01 U Benzodiazepines Scrn Neg (Neg) 08/25/24 00:01 Ur Cocaine Metabolite Neg (Neg) 08/25/24 00:01 U Marijuana (THC) Screen Neg (Neg) 08/25/24 00:01 Ethyl Alcohol mg/dL < 10.0 mg/dl (<10.0) 08/25/24 00:33 Adenovirus (PCR) Not Detected (NotDetected) 08/25/24 00:01 B. pertussis DNA (PCR) Not Detected (NotDetected) 08/25/24 00:01 B.parapertussis DNA PCR Not Detected (NotDetected) 08/25/24 00:01 C. pneumoniae DNA (PCR) Not Detected (NotDetected) 08/25/24 00:01 Coronavirus OC43 (PCR) Not Detected (NotDetected) 08/25/24 00:01 Coronavirus HKU1 (PCR) Not Detected (NotDetected) 08/25/24 00:01 Coronavirus 229E (PCR) Not Detected (NotDetected) 08/25/24 00:01 SARS-CoV-2 (PCR) Not Detected (NotDetected) 08/25/24 00:01 Coronavirus NL63 (PCR) Not Detected (NotDetected) 08/25/24 00:01 Human Metapneumovir PCR Not Detected (NotDetected) 08/25/24 00:01 Influenza Type A (PCR) Not Detected (NotDetected) 08/25/24 00:01 Influenza Type B (PCR) Not Detected (NotDetected) 08/25/24 00:01 M. pneumoniae (PCR) Not Detected (NotDetected) 08/25/24 00:01 Parainfluenza 1 (PCR) Not Detected (NotDetected) 08/25/24 00:01 Parainfluenza 2 (PCR) Not Detected (NotDetected) 08/25/24 00:01 Parainfluenza 3 (PCR) Not Detected (NotDetected) 08/25/24 00:01 Parainfluenza 4 (PCR) Not Detected (NotDetected) 08/25/24 00:01 RSV (PCR) Not Detected (NotDetected) 08/25/24 00:01 Entero/Rhino (PCR) Not Detected (NotDetected) 08/25/24 00:01 Impressions Chest X-Ray 08/24/24 23:06 Exam(s): XR CXR 1 VIEW EXAM: XR Chest, 1 View CLINICAL HISTORY: Reason for exam: AMS. TECHNIQUE: Frontal view of the chest. COMPARISON: August 01, 2024. IMPRESSION: The right chest is clear. There is new scattered volume loss in the left lung with some pleural thickening laterally. No evidence of pneumothorax. Electronically signed by: Ricky Colon MD 08/25/24 01:[address] 08/24/24 23:07 Exam(s): CT HEAD Without Contrast EXAM: CT Head Without Intravenous Contrast CLINICAL HISTORY: AMS. TECHNIQUE: Axial computed tomography images of the head/brain without intravenous contrast. CTDI is 49.11 mGy and DLP is 764.9 mGy-cm. Automated exposure control was utilized for the study. A dose lowering technique was utilized adhering to the principles of ALARA. COMPARISON: CT August 01, 2024 FINDINGS: Brain: No acute intracranial hemorrhage, edema or abnormal mass-effect. Ventricles: Unremarkable. No ventriculomegaly. Bones/joints: Unremarkable. No acute fracture. Soft tissues: Unremarkable. Sinuses: Unremarkable as visualized. No acute sinusitis. Mastoid air cells: Unremarkable as visualized. No mastoid effusion. IMPRESSION: No acute intracranial abnormality. Electronically signed by: Ricky Colon MD 08/25/24 01:12 AM ECG Additional Comments: ECG. Normal sinus rhythm with sinus arrhythmia rate of 85. Left axis deviation. Left ventricular hypertrophy. Prolonged QTc at 523. Code Status & VTE Plan VTE Prophylaxis Plan VTE Prophylaxis will be ordered: Yes
[2024-08-25] MEDS: MAGNESIUM SULFATE / D5W 1 GM/100 ML BAG IV ONE (02:42)
[2024-08-25] MEDS ORDERED: NITROGLYCERIN SL 0.4 MG/TAB TAB SL PRN (04:12)
[2024-08-25] MEDS ORDERED: POLYETHYLENE (MIRALAX) 17 GM PACK PO PRN (04:12)
[2024-08-25] MEDS ORDERED: ALBUTEROL HFA 8 GM INHALER INH PRN (04:12)
[2024-08-25] MEDS: SODIUM CHLORIDE 0.9% 1,000 ML IV SCH (04:24)
[2024-08-25 05:41] LABS: Base Excess VBG -6.5 mEq/L; HCO3 VBG 23 mmol/L; Oxygen Saturation VBG 85.4 %; PCO2 VBG 59 mmHg (38-50); PO2 VBG 55 mmHg; pH VBG 7.19 (7.36-7.41)
[2024-08-25] MEDS: NICOTINE 21 MG/24 HR TDSY TD SCH (05:42)
[2024-08-25 05:46] LABS: Basophils # (auto) 0.02 K/uL (0.00-0.20); Basophils % (auto) 0.1 %; Eosinophils # (auto) 0.02 K/uL (0.00-0.50); Eosinophils % (auto) 0.1 %; Hematocrit (blood only) 38.3 % (37.0-47.0); Immature Granulocytes # (auto) 0.08 K/uL (0.01-0.20); Immature Granulocytes % (auto) 0.4 %; Lymphocytes # (auto) 0.73 K/uL (1.20-3.40); Lymphocytes % (auto) 3.9 %; Mean Corpuscular Hemoglobin 35.1 pg (25.0-34.0); Mean Corpuscular Hgb Conc 31.3 g/dL (32.0-36.0); Mean Platelet Volume 10.4 fL (9.4-12.4); Monocytes # (auto) 1.35 K/uL (0.11-0.59); Monocytes % (auto) 7.2 %; Neutrophils # (auto) 16.61 K/uL (1.40-6.50); Neutrophils % (auto) 88.3 %; Platelet Count 165 K/uL (130-400); RDW Coefficient of Variation 13.9 % (11.5-14.5); RDW Standard Deviation 57.3 fL (36.4-46.3); Red Blood Count 3.42 M/uL (4.20-5.40); White Blood Count 18.81 K/ul (4.8-10.8)
[2024-08-25 06:03] LABS: BUN Creatinine Ratio 11.4 (10-20); Calcium 8.1 mg/dl (8.6-10.3); Creatinine Clr Calc Pharmacy 35.7 ml/min; Magnesium 1.8 mg/dl (1.7-2.4); Potassium 3.9 mmol/L (3.5-5.1)
[2024-08-25 06:10] LABS: Macrocytosis Present; Polychromasia 1+
[2024-08-25 06:11] LABS: Troponin I High Sensitivity 234.5 pg/ml (0-14)
[2024-08-25] MEDS ORDERED: LEVALBUTEROL 1.25 MG/3 ML NEB NEB PRN (07:10)
[2024-08-25] MEDS: ACETAMINOPHEN 325 MG TAB PO PRN (07:57)
[2024-08-25] MEDS: FLUTICASONE PROPIONATE NA SPR 16 GM BTL SCH (07:59)
[2024-08-25] MEDS: APIXABAN 5 MG TABLET PO SCH (07:59)
[2024-08-25] MEDS: PRAVASTATIN SOD 40 MG TAB PO SCH (07:59)
[2024-08-25] MEDS: CALCITONIN SALMON NA 200 IU/AC 3.7 ML BTL SCH (07:59)
[2024-08-25] MEDS: PANTOprazole 40 MG TAB PO SCH (07:59)
[2024-08-25] MEDS: LEVALBUTEROL 1.25 MG/3 ML NEB NEB SCH (08:15)
[2024-08-25] MEDS: LEVALBUTEROL 1.25 MG/3 ML NEB NEB STA (08:15)
--- OUTSIDE RECORDS SUMMARY | 2024-08-25 08:17 | External Medical Summary | Summary of Care ---
Author Name Unknown Organization [facility] Address [address] [place] [address] Phone [phone] Care Team Providers Care Marketing Underwriter Name Role Phone Akbar Daniel DO Primary Care Provider Reason for Visit * Reason Onset Date Comments Advice 08/19/2024 Encounter Details Date Type Department Care Team (Late st Contact Info) Description 08/19/2024 Telephone Family Practice [facility] [address] [facility] [address] Akbar Daniel DO [address] [facility] [place] [address] Advice Allergies Active Allergy Reactions Criticality Noted Date Comments Amoxicillin Other (Please comment) 08/11/2024 Pt c/o headaches with amox Benzyl Alcohol Anaphylaxis High 10/16/2011 Erythromycin Other (Please comment) 08/11/2024 Pt has headaches and earaches with this medication. Furosemide Itching 10/16/2011 Iodinated Contrast Media High 10/10/2023 Iodine Itching 10/16/2011 Allergy as per patient with itching. Lisinopril Chills/rigors High 01/29/2012 Prochlorperazine Anaphylaxis,Edema airway High 10/16/2011 Promethazine Anaphylaxis High 10/16/2011 Angioedema Saccharin Anaphylaxis High 10/16/2011 Simvastatin Itching 10/16/2011 documented as of this encounter (statuses as of 08/21/2024) Medications LORAZEPAM 1 MG PO TABSIndications: Pt also taking 1 tab in evening. Take 1 Tablet by mouth in the morning and 1 Tablet at noon and 1 Tablet before bedtime. Active NITROGLYCERIN 0.4 MG SL SUBLIndications: Chronic coronary artery disease,S/P coronary artery bypass with four autogenous grafts as needed 25 Tab 5 2 Active Additional Information Patient not taking.Reported on 08/18/2024 ondansetron (ZOFRAN) 8 MG Tablet Take 1 Tablet by mouth in the morning. 0 5 Active isosorbide mononitrate SA (IMDUR) 30 MG TB24 Take 1 Tablet by mouth in the morning. Active Metoprolol Succinate ER 50 MG Oral Tablet Extended Release 24 Hour (toPROL XL) Take 1 Tablet by mouth in the morning. In the morning.. 2 Active Eliquis 5 MG Oral Tablet Take 1 Tablet by mouth in the morning and 1 Tablet before bedtime. 2 Active Pravastatin Sodium 40 MG Oral Tablet (Pravachol)Indic ations:Coronary artery disease involving autologous vein coronary bypass graft without angina pectoris TAKE 1 TABLET BY MOUTH EVERYDAY AT BEDTIME 90 Tablet 3 4 Active Vitamin D 25 MCG (1000 UT) Oral Tablet Take 1 Tablet by mouth in the morning. 30 Tablet 11 4 Active traZODone HCl 150 MG Oral Tablet (Desyrel) Take 1 Tablet by mouth at bedtime. 4 Active Iron Dextran 50 MG/ML Injection Solution (Infed) Administer 50 mg intravenously. Receives infusions for 3 weeks, three times a year. 3 Active Albuterol Sulfate HFA 108 (90 Base) MCG/ACT Inhalation Aerosol SolutionIndicati ons:COPD, severity to be determined ([facility]) INHALE 2 PUFFS EVERY 4 HOURS NEEDED FOR SHORTNESS OF BREATH 18 g 3 4 Active Calcitonin ([place]) 200 UNIT/ACT Nasal Solution (Fortical)Indica tions:Compressio n fracture of lumbar vertebra, unspecified lumbar vertebral level, initial encounter ([facility]) Administer 1 [place] into one nostril in the morning. alternate nostrils.. 3 mL 11 4 Active Gabapentin 800 MG Oral Tablet (Neurontin)Indic ations:Migraine without aura and without status migrainosus, not intractable TAKE 1 TABLET BY MOUTH IN THE MORNING, AT NOON, IN THE EVENING, AND BEFORE BEDTIME. 360 Tablet 3 4 Active Omeprazole 40 MG Oral Capsule Delayed Release (PriLOSEC)Indica tions:GERD (gastroesophagea l reflux disease) TAKE 1 CAPSULE BY MOUTH IN THE MORNING AND BEFORE BEDTIME 180 Capsule 1 4 Active Losartan Potassium 50 MG Oral Tablet (Cozaar)Indicati ons:Chronic HFrEF (heart failure with reduced ejection fraction) (HCC) Take 1 Tablet by mouth in the morning. 90 Tablet 3 4 Active Loperamide HCl 2 MG Oral Capsule (Imodium) Take 1 Capsule by mouth in the morning and 1 Capsule at noon and 1 Capsule in the evening. 270 Capsule 5 4 Active oxyCODONE HCl 5 MG Oral Tablet (Oxy IR) Take 1 Tablet by mouth every 4 hours as needed for Pain, Severe. 30 Tablet 4 Active Fluticasone Propionate 50 MCG/ACT Nasal Suspension (Flonase)Indicat ions:Chronic nasal congestion Administer 1 [place] into each nostril in the morning and 1 [place] before bedtime. 15.8 mL 4 4 Active documented as of this encounter (statuses as of 08/21/2024) Active Problems Problem Noted Date Diagnosed Date Peripheral arterial disease 08/24/2023 S/P femoral-popliteal bypass surgery 08/24/2023 B12 deficiency 08/22/2022 Overview (08/22/2022): Last Assessment & Plan: Level good. Continue IM B12 as she has been. Dyslipidemia, goal LDL below 100 08/22/2022 Overview (08/22/2022): Last Assessment & Plan: Controlled. COntinue current meds. Iron deficiency anemia, unspecified 08/22/2022 Overview (08/22/2022): Last Assessment & Plan: Stable. Mitral valve [...] as of this encounter (statuses as of 08/21/2024) Social History Tobacco Use Types Packs/Day Years Used Date Smoking Tobacco: Every Day Cigarettes 1 57.9 Started: 09/26/1966 Smokeless Tobacco: Never Comments:Occasionally uses e -cigarettes Alcohol Use Standard Drinks/Week Comments No 0 (1 standard drink = 0.6 oz pur e alcohol) Comments No Sex and Gender Information Value Date Recorded Sex Assigned at Not on file Legal Sex Female 7:01 AM EST Gender Identity Not on file Sexual Orientation Not on file documented as of this encounter Miscellaneous Notes * Telephone Encounter - Meche Cavanaugh PHARM Tech - 08/21/2024 9:06 AM EST Pt called stating rx is not going through. Called pharmacy and they said rx did go thorgh and they will get it ready for pt. ThanksMeche Wallpaper Consultant [facility] 08/21/2024,9:07 AM * Telephone Encounter - Mago Tineo LPN - 08/19/2024 11:02 AM EST Outcome [facility] today [facility] [place] Case: [id number], Status: Approved, Coverage Starts on: 09/17/2023 12:00:00 AM, Coverage Ends on: 09/16/2025 12:00:00 AM. Questions? Contact . Authorization Expiration Date: 09/15/2025 Drug oxyCODONE HCl 5MG tablets ePA cloud logo Form [employer] Electronic PA Form Called pt and informed of approval. * Telephone Encounter - Mago Tineo LPN - 08/19/2024 10:15 AM EST Called [facility] pharmacy-- Needs PA. [employer] Med pt D ID [id number] BIN [id number] PCN [id number] Medicare BIN [id number] PCN [id number] ID [id number] Grp [id number] COMPLETED PA ON CM ([place]: [id number]) Awaiting response. * Telephone Encounter - Mago Tineo LPN - 08/19/2024 8:57 AM EST Called the pharmacy-- closed currently. Called pt-- Informed of message below pt states they need either PA on oxycodone or alternative script. Will call [facility] @ [phone] * Telephone Encounter - Gabriela Daniel OSA - 08/19/2024 8:41 AM EST Pt is calling regarding the OxyCodone HCI 5mg that was prescribed and sent to pt's pharmacy. Pt's pharmacy states they received the script, but called Dr. Daniel's office to check if he wanted to prescribe something else and they have not heard back so the script is still unfilled at pt's pharmacy. Please reach out to pt at [phone] with any questions. documented in this encounter Plan of Treatment Upcoming Encounters Date Type Department Care Team (Late st Contact Info) Description 10/01/2024 11:40 AM EST Office Visit [address] [place] [address] Emani Parikh CRNP [address] [place] [address] 10/08/2024 9:00 AM EST Office Visit Otolaryngology [facility] [address] [place] [address] Rolando Ervin, DO [address] [place] [address] 02/04/2025 11:40 AM EDT Office Visit [facility] [address] [place] [address] Emani Parikh CRNP [address] [place] [address] 08/18/2025 10:20 AM EST Office Visit [facility] [address] [place] [address] Akbar Daniel, DO [address] [place] [address] Health Maintenance Due Date Last Done Comments DISCUSS TOBACCO CESSATION (REFER TO SMARTSET #6542) 1955 Pneumococcal Vaccine: 65+ Years (1 of 2 - PCV) 1960 Depression Screening 1966 Albumin/Creatinine Ratio 1972 Alpha-1 Antitrypsin 1972 Diabetic Eye Exam 1972 DTap/Tdap Vaccines (1 - Tdap) 1973 Cologuard 12/31/1999 Fecal Occult Blood Test 12/31/1999 Sigmoidoscopy 12/31/1999 Zoster Vaccines (1 of 2) 2004 DXA Scan 09/18/2020 09/18/2018, 10/10/2016 Adult Wellness Visit 2020 Mammogram 04/05/2023 04/05/2022, 03/10/2016, 04/07/2015 Diabetic Foot Exam 06/16/2023 06/16/2022 COVID-19 Vaccine ( season) 2024 Influenza Vaccine (FLU shot) (#1) 2024 HbA1c 02/08/2025 08/11/2024, 09/18, 08/22/2022, Additional history exists GFR 08/11/2025 08/11/2024, 09/18, 08/22/2022, Additional history exists O2 ASSESSMENT COMPLETED IN PAST YEAR FOR COPD 08/11/2025 08/11/2024 Colonoscopy 11/06/2032 11/06/2022, 03/02/2022 Colorectal Cancer Screening 11/06/2032 Lung Cancer Screening Completed 01/03/2012 VITAMIN D LEVEL ONCE IN A LIFETIME-USE SMARTSET# [id number] Completed 01/10/2024, 10/11/2023, 12/02/2021, Additional history exists HPV (Gardasil) Vaccine Aged Out No lo nger eligible based on patient's age to complete this topic Hepatitis B Vaccine Aged Out No longe r eligible based on patient's age to complete this topic Hepatitis C Screening Discontinued MENINGOCOCCAL (MENACTRA/MENVEO) Aged Out No longer eligible based on patient's age to complete this topic documented as of this encounter Medical Devices Implanted Type Area Border Measurer Device Identifier Shelf Expiration Date Model / Serial / Lot Graft Marker Coronary - [id number] [place]ed:Q[place] 1 [place] [facility] [place] Aorta VM CARDIO VASCULAR 04/16/2014 [id number] / / [id number] Sut Steel 6 M654g - [id number] Implanted:Qty: 6 on 01/15/2012 [place] [facility] [place]/A: Chest DO NOT USE 10/17/2016 M654G / / [id number] Sut Steel 6 M654g - [id number] Implanted:Qty: 2 on 01/15/2012 [place] [facility] [place]A: Chest DO NOT USE 10/17/2016 M654G / / [id number] Graft Marker Coronary - [id number] Implanted:Qty: 1 on 01/15/2012 [place] [facility] [place]A: Aorta VM CARDIO VASCULAR 08/16/2013 [id number] / / [id number] Lens Intraoc 15.5 - [id number] - [id number] Implanted:Qty: 1 on 10/21/2019 by Tay Acevedo MD at OR [facility] Left: Eye BAUSCH & LOMB 01/15/2024 [id number] / [id number] / Lens Intraoc 16.0 - [id number] - [id number] Implanted:Qty: 1 on 11/04/2019 by Tay Acevedo MD at OR [facility] Right: Eye BAUSCH & LOMB 05/17/2024 [id number] / [id number] / documented as of this encounter Advance Directives * Full Code (Latest Code Status on File) Date Activated Date Inactivated Comments 01/15/2012 3:49 PM 01/20/2012 4:10 PM This order re flects the patients wishes and were consensually agreed upon. Care Teams Marketing Underwriter Relationship Specialty Start Date End Date Akbar Daniel DO [address] [place] [address] PCP - General Family Medicine 08/22/22 documented as of this encounter
--- OUTSIDE RECORDS SUMMARY | 2024-08-25 08:17 | External Medical Summary | Summary of Care ---
Author Name Unknown Organization [facility] Address [address] [place] [address] Phone [phone] Care Team Providers Care Lowerator Operator Name Role Phone Akbar Daniel Primary Care Provider Encounter Details Date Type Department Care Team (Late st Contact Info) Description 08/20/2024 External Data Patient Risk Medial Allergies Active Allergy Reactions Criticality Noted Date [...] as of this encounter (statuses as of 08/20/2024) Medications LORAZEPAM 1 MG PO TABSIndications: Pt [...] BREATH 18 g 3 4 Active Calcitonin ([place]) 200 UNIT/ACT Nasal Solution (Fortical)Indica tions:Compressio n fracture of lumbar vertebra, unspecified lumbar vertebral level, initial encounter ([facility]) Administer 1 [place] into one nostril in the morning. alternate [...] Suspension (Flonase)Indicat ions:Chronic nasal congestion Administer 1 [place] into each nostril in the morning and 1 [place] before bedtime. 15.8 mL 4 4 Active documented as of this encounter (statuses as of 08/20/2024) Active Problems Problem Noted Date Diagnosed Date [...] as of this encounter (statuses as of 08/20/2024) Social History Tobacco Use Types Packs/Day Years [...] on file documented as of this encounter Plan of Treatment Upcoming Encounters Date Type Department Care Team (Late st Contact Info) Description 10/01/2024 11:40 AM EST Office Visit [facility] [address] [place] [address] Emani Parikh CRNP [address] [place] [address] 10/08/2024 9:00 AM EST Office Visit Otolaryngology [facility] [address] [place] [address] Rolando Ervin DO [address] [place] [address] 02/04/2025 11:40 AM EDT Office Visit [facility] [address] [place] [address] Emani Parikh CRNP [address] [place] [address] 08/18/2025 10:20 AM EST Office Visit [facility] [address] [place] [address] Akbar Daniel, DO [address] [place] [address] Health Maintenance Due Date Last Done Comments DISCUSS TOBACCO CESSATION (REFER TO SMARTSET #4478) 1955 Pneumococcal Vaccine: 65+ Years (1 of [...] 11/16, 04/07/2015 Diabetic Foot Exam 06/16/2023 06/16/2022 COVID-19 [...] D LEVEL ONCE IN A LIFETIME-USE SMARTSET# [id number] Completed 01/10/2024, 10/11/2023, 12/02/2021, Additional history exists [...] this encounter Medical Devices Implanted Type Area Lumber Loader Device Identifier Shelf Expiration Date Model / Serial / Lot Graft Marker Coronary - [id number] Implanted:Qty: 1 on 01/15/2012 at [place] [facility] [place]/A: Aorta VM CARDIO VASCULAR 04/16/2014 80195 / / [id number] Sut Steel 6 M654g - [id number] Implanted:Qty: 6 on 01/15/2012 at [place] [facility] [place] N/A: Chest DO NOT USE 10/17/2016 M654G / / [id number] Sut Steel 6 M654g - [id number] Implanted:Qty: 2 on 01/15/2012 at [place] [facility] [place] N/A: Chest DO NOT USE 10/17/2016 M654G / / [id number] Graft Marker Coronary - [id number] Implanted:Qty: 1 on 01/15/2012 at [place] [facility] [place] N/A: Aorta VM CARDIO VASCULAR 08/16/2013 [id number] / / [id number] Lens Intraoc 15.5 - [id number] - [id number] Implanted:Qty: 1 on 10/21/2019 by Tay Acevedo MD at OR [facility] Left: Eye BAUSCH & LOMB 01/15/2024 [id number] / [id number] / Lens Intraoc 16.0 - [id number] - [id number] Implanted:Qty: 1 on 11/04/2019 by Tay Acevedo MD at OR [facility] Right: Eye BAUSCH & LOMB 05/17/2024 [id number] / [id number] / documented as of this encounter Advance Directives * Full Code (Latest Code Status on File) Date Activated Date Inactivated Comments 01/15/2012 3:49 PM 01/20/2012 4:10 PM This order re flects the patients wishes and were consensually agreed upon. Care Teams Lowerator Operator Relationship Specialty Start Date End Date Akbar Daniel DO [address] [place] [address] PCP - General Family Medicine 08/22/22 documented as of this encounter
--- OUTSIDE RECORDS SUMMARY | 2024-08-25 08:17 | External Medical Summary | Summary of Care ---
Author Name Unknown Organization [facility] Address [address] [place] [address] Phone [phone] Care Team Providers Care Application Systems Administrator Name Role Phone Akbar Daniel Primary Care Provider Reason for Visit * Reason Onset Date Comments Lung Cancer Screening Outreach 08/21/2024 Encounter Details Date Type Department Care Team (Late st Contact Info) Description 08/21/2024 Telephone Thoracic Surg [facility] [address] [place] [address] Esther Freeman, RN Lung Cancer Screening Outreach Allergies Active Allergy Reactions Criticality Noted Date [...] Aerosol SolutionIndicati ons:COPD, severity to be determined ([facility]) INHALE 2 PUFFS EVERY 4 HOURS NEEDED FOR SHORTNESS OF BREATH 18 g 3 4 Active Calcitonin ([place]) 200 UNIT/ACT Nasal Solution (Fortical)Indica tions:Compressio n fracture of lumbar vertebra, unspecified lumbar vertebral level, initial encounter ([facility]) Administer 1 [place] into one nostril in the morning. alternate [...] Suspension (Flonase)Indicat ions:Chronic nasal congestion Administer 1 [place] into each nostril in the morning and 1 [place] before bedtime. 15.8 mL 4 4 Active [...] encounter Miscellaneous Notes * Telephone Encounter - Esther Freeman RN - 08/21/2024 11:15 AM EST Lung Cancer Screening Program ([facility]) High Risk Outreach Call Summary 08/21/2024 Through advanced analysis/trending of this patient's history, they have been identified to have a positive Lung flag and are at a higher risk for lung cancer. This advanced analysis estimates the patient's risk for lung cancer. It only indicates that the patient's chances to have this condition are higher compared to most people. It does not indicate that the patient has this condition, but it is highly recommended the patient have a low dose CT screening for further evaluation. Declined. The patient does not want to proceed with Lung Cancer Screening. Esther Freeman RN documented in this encounter Plan of Treatment Upcoming Encounters Date Type Department Care Team (Late st Contact Info) Description 10/01/2024 11:40 AM EST Office Visit [address] [place] [address] Emani Parikh CRNP [address] [place] [address] 10/08/2024 9:00 AM EST Office Visit Otolaryngology [facility] [address] [place] [address] Rolando Ervin, DO [address] [place] [address] 02/04/2025 11:40 AM EDT Office Visit [facility] [address] [place] [address] Emani Parikh CRNP [address] [place] [address] 08/18/2025 10:20 AM EST Office Visit [facility] [address] [place] [address] Akbar Daniel, DO [address] [place] [address] Health Maintenance Due Date Last Done Comments DISCUSS TOBACCO CESSATION (REFER TO SMARTSET #1655) 1955 Pneumococcal Vaccine: 65+ Years (1 of [...] 10/2016, 04/07/2015 Diabetic Foot Exam 06/16/2023 06/16/2022 COVID-19 [...] D LEVEL ONCE IN A LIFETIME-USE SMARTSET# [id number] Completed 01/10/2024, 10/11/2023, 12/02/2021, Additional history exists [...] this encounter Medical Devices Implanted Type Area Leveler Helper Device Identifier Shelf Expiration Date Model / Serial / Lot Graft Marker Coronary - [id number] Implanted:Qty: 1 on 01/15/2012 at [place] [facility] [place] N/A: Aorta VM CARDIO VASCULAR 04/16/2014 [id number] / / [id number] Sut Steel 6 M654g - [id number] Implanted:Qty: 6 on 01/15/2012 at [place] [facility] [place] N/A: Chest DO NOT USE 10/17/2016 M654G / / [id number] Sut Steel 6 M654g - [id number] Implanted:Qty: 2 on 01/15/2012 at [place] [facility] [place] N/A: Chest DO NOT USE 10/17/2016 M654G / / [id number] Graft Marker Coronary - [id number] Implanted:Qty: 1 on 01/15/2012 at [place] [facility] [place] N/A: Aorta VM CARDIO VASCULAR 08/16/2013 [id number] / / [id number] Lens Intraoc 15.5 - [id number] - [id number] Implanted:Qty: 1 on 10/21/2019 by Tay Acevedo MD at OR [facility] Left: Eye BAUSCH & LOMB 01/15/2024 [id number] / [id number] / Lens Intraoc 16.0 - [id number] - [id number] Implanted:Qty: 1 on 11/04/2019 by Tay Acevedo MD at OR [facility] Right: Eye BAUSCH & LOMB 05/17/2024 [id number] / [id number] / documented as of this encounter Advance Directives * Full Code (Latest Code Status on File) Date Activated Date Inactivated Comments 01/15/2012 3:49 PM 01/20/2012 4:10 PM This order re flects the patients wishes and were consensually agreed upon. Care Teams Application Systems Administrator Relationship Specialty Start Date End Date Akbar Daniel DO [address] [place] [address] PCP - General Family Medicine 08/22/22 documented as of this encounter
--- OUTSIDE RECORDS SUMMARY | 2024-08-25 08:18 | External Medical Summary | Summary of Care ---
Author Name Unknown Organization [facility] Address [address] [place] [address] Phone [phone] Care Team Providers Care Cable Operator Name Role Phone Akbar Daniel DO Primary Care Provider Reason for Visit * Reason Onset Date Comments Advice 08/19/2024 Encounter Details Date Type Department Care Team (Late st Contact Info) Description 08/19/2024 Telephone Family Practice [facility] [address] [facility] [address] Akbar Daniel DO [address] [place] [address] Advice Allergies Active Allergy [...] as of this encounter (statuses as of 08/19/2024) Medications LORAZEPAM 1 MG PO TABSIndications: Pt [...] Aerosol SolutionIndicati ons:COPD, severity to be determined ([facility]) INHALE 2 PUFFS EVERY 4 HOURS NEEDED FOR SHORTNESS OF BREATH 18 g 3 4 Active Calcitonin ([place]) 200 UNIT/ACT Nasal Solution (Fortical)Indica tions:Compressio n fracture of lumbar vertebra, unspecified lumbar vertebral level, initial encounter ([facility]) Administer 1 [place] into one nostril in the morning. alternate [...] Suspension (Flonase)Indicat ions:Chronic nasal congestion Administer 1 [place] into each nostril in the morning and 1 [place] before bedtime. 15.8 mL 4 4 Active documented as of this encounter (statuses as of 08/19/2024) Active Problems Problem Noted Date Diagnosed Date [...] as of this encounter (statuses as of 08/19/2024) Social History Tobacco Use Types Packs/Day Years [...] encounter Miscellaneous Notes * Telephone Encounter - Mago Tineo LPN - 08/19/2024 10:15 AM EST Called [facility] pharmacy-- Needs PA. [employer] pt D ID [id number] BIN [id number] [facility] [id number] Medicare BIN [id number] [facility] [id number] [place] [id number] [facility] [id number] COMPLETED PA ON [facility] ([place]: [id number]) Awaiting response. * Telephone Encounter - Mago Tineo LPN - 08/19/2024 8:57 AM EST Called the pharmacy-- closed currently. Called pt-- Informed of message below pt states they need either PA on oxycodone or alternative script. Will call [facility] @ [phone] * Telephone Encounter - Gabriela [...] pharmacy. Please reach out to pt at [phone] with any questions. documented in this encounter Plan of Treatment Upcoming Encounters Date Type Department Care Team (Late st Contact Info) Description 10/01/2024 11:40 AM EST Office Visit [facility] [address] [place] [address] Emani Parikh CRNP [address] [place] [address] 10/08/2024 9:00 AM EST Office Visit Otolaryngology [facility] [address] [place] [address] Rolando Ervin, DO [address] [place] [address] 02/04/2025 11:40 AM EDT Office Visit [facility] [address] [place] [address] Emani Parikh CRNP [address] [place] [address] 08/18/2025 10:20 AM EST Office Visit [facility] [address] [place] [address] Akbar Daniel, DO [address] [place] [address] Health Maintenance Due Date Last Done Comments DISCUSS TOBACCO CESSATION (REFER TO SMARTSET #1212) 1955 Pneumococcal Vaccine: 65+ Years (1 of [...] Foot Exam 06/16/2023 06/16/2022 COVID-19 Vaccine ( - season) 2024 Influenza Vaccine (FLU shot) (#1) 2024 HbA1c 02/08/2025 08/11/2024, 09/18, 08/22/2022, Additional history exists GFR 08/11/2025 08/11/2024, 09/18, 08/22/2022, Additional history exists O2 ASSESSMENT COMPLETED IN PAST YEAR FOR COPD 08/11/2025 08/11/2024 Colonoscopy 11/06/2032 11/06/2022, 03/02/2022 Colorectal Cancer Screening 11/06/2032 Lung Cancer Screening Completed 01/03/2012 VITAMIN D LEVEL ONCE IN A LIFETIME-USE SMARTSET# 32167 Completed 01/10/2024, 10/11/2023, 12/02/2021, Additional history exists [...] this encounter Medical Devices Implanted Type Area Regeneration Operator Device Identifier Shelf Expiration Date Model / Serial / Lot Graft Marker Coronary - [id number] Implanted:Qty: 1 on 01/15/2012 [place] [facility] [place]: Aorta VM CARDIO VASCULAR 04/16/2014 [id number] / / [id number] Sut Steel 6 M654g - [id number] Implanted:Qty: 6 on 01/15/2012 at [place] [facility] [place] N/A: Chest DO NOT USE 10/17/2016 [id number] / / [id number] Sut Steel 6 M654g - [id number] Implanted:Qty: 2 on 01/15/2012 at [place] [facility] [place]/A: Chest DO NOT USE 10/17/2016 M654G / / [id number] Graft Marker Coronary - [id number] Implanted:Qty: 1 on 01/15/2012 at [place] [facility] [place]/A: Aorta VM CARDIO VASCULAR 08/16/2013 [id number] / / [id number] Lens Intraoc 15.5 - [id number] - [id number] Implanted:Qty: 1 on 10/21/2019 by Tay Acevedo MD at [facility] Left: Eye BAUSCH & LOMB 01/15/2024 [id number] / [id number] / Lens Intraoc 16.0 - [id number] - [id number] Implanted:Qty: 1 on 11/04/2019 by Tay Acevedo MD at OR [facility] Right: Eye BAUSCH & LOMB 05/17/2024 [id number] / [id number] / documented as of this encounter Advance Directives * Full Code (Latest Code Status on File) Date Activated Date Inactivated Comments 01/15/2012 3:49 PM 01/20/2012 4:10 PM This order re flects the patients wishes and were consensually agreed upon. Care Teams Cable Operator Relationship Specialty Start Date End Date Akbar Daniel DO [address] [place] [id number] PCP - General Family Medicine 08/22/22 documented as of this encounter
--- OUTSIDE RECORDS SUMMARY | 2024-08-25 08:18 | External Medical Summary | Summary of Care ---
Author Name Unknown Organization [facility] Address [address] [place] [address] Phone [phone] Care Team Providers Care Auto Detailer Name Role Phone Akbar Daniel DO Primary Care Provider Reason for Visit * Reason Comments NEW PATIENT Bilateral ear fullne ss and hearing loss * Evaluate & Treat - Unlimited Visits (Within 3 days (urgent)) - Authorized Specialty Diagnoses / Procedures Referred By Froylan marie Referred To Contact Otolaryngology Diagnoses Bilateral chronic serous otitis media Akbar Daniel DO [address] [place] [address] Phone: tel: fax: Referral ID Status Reason Start Date Expiration Date Visits Requested Visits Authorized [id number] Authorized Specialty Services Required [phone] Encounter Details Date Type Department Care Team (Late st Contact Info) Description 08/18/2024 9:30 AM EST Office Visit Otolaryngology [facility] [address] [place] [address] Sebastian Hernandez PA-C [address] [place] [address] Hearing loss, mixed, bilateral*; Chronic nasal congestion; Hx of epistaxis Allergies Active Allergy Reactions Criticality Noted Date [...] of 08/19/2024) Medications LORAZEPAM 1 MG PO TABSIndications :Pt also taking 1 tab in evening. Take 1 Tablet by mouth in the morning and 1 Tablet at noon and 1 Tablet before bedtime. Active NITROGLYCERIN 0.4 MG SL SUBLIndications :Chronic coronary artery disease,S/P coronary artery bypass with four autogenous grafts as needed 25 Tab 5 10/16/19 12 Active Additional Information Patient not taking.Reported on 08/18/2024 ondansetron (ZOFRAN) 8 MG Tablet Take 1 Tablet by mouth in the morning. 0 07/07/20 15 Active isosorbide mononitrate SA (IMDUR) 30 MG TB24 Take 1 Tablet by mouth in the morning. Active Metoprolol Succinate ER 50 MG Oral Tablet Extended Release 24 Hour (toPROL XL) Take 1 Tablet by mouth in the morning. In the morning.. 06/17/20 22 Active Eliquis 5 MG Oral Tablet Take 1 Tablet by mouth in the morning and 1 Tablet before bedtime. 08/17/20 22 Active Pravastatin Sodium 40 MG Oral Tablet (Pravachol)Lindsey cations:Coronar y artery disease involving autologous vein coronary bypass graft without angina pectoris TAKE 1 TABLET BY MOUTH EVERYDAY AT BEDTIME 90 Tablet 3 01/04/20 24 Active Vitamin D 25 MCG (1000 UT) Oral Tablet Take 1 Tablet by mouth in the morning. 30 Tablet 11 01/11/20 24 Active traZODone HCl 150 MG Oral Tablet (Desyrel) Take 1 Tablet by mouth at bedtime. 01/01/20 24 Active Iron Dextran 50 MG/ML Injection Solution (Infed) Administer 50 mg intravenously. Receives infusions for 3 weeks, three times a year. 07/17/20 23 Active Albuterol Sulfate HFA 108 (90 Base) MCG/ACT Inhalation Aerosol SolutionIndicat ions:COPD, severity to be determined ([facility]) INHALE 2 PUFFS EVERY 4 HOURS NEEDED FOR SHORTNESS OF BREATH 18 g 3 06/04/20 24 Active Calcitonin (Columbus) 200 UNIT/ACT Nasal Solution (Fortical)Indic ations:Compress ion fracture of lumbar vertebra, unspecified lumbar vertebral level, initial encounter ([facility]) Administer 1 Theodore into one nostril in the morning. alternate nostrils.. 3 mL 11 06/26/20 24 Active Gabapentin 800 MG Oral Tablet (Neurontin)Lindsey cations:Migrain e without aura and without status migrainosus, not intractable TAKE 1 TABLET BY MOUTH IN THE MORNING, AT NOON, IN THE EVENING, AND BEFORE BEDTIME. 360 Tablet 3 07/04/20 24 Active Omeprazole 40 MG Oral Capsule Delayed Release (PriLOSEC)Indic ations:GERD (gastroesophage al reflux disease) TAKE 1 CAPSULE BY MOUTH IN THE MORNING AND BEFORE BEDTIME 180 Capsule 1 07/03/20 24 Active Losartan Potassium 50 MG Oral Tablet (Cozaar)Indicat ions:Chronic HFrEF (heart failure with reduced ejection fraction) ([facility]) Take 1 Tablet by mouth in the morning. 90 Tablet 3 08/11/20 24 Active Loperamide HCl 2 MG Oral Capsule (Imodium) Take 1 Capsule by mouth in the morning and 1 Capsule at noon and 1 Capsule in the evening. 270 Capsule 5 08/11/20 24 Active oxyCODONE HCl 5 MG Oral Tablet (Oxy IR) Take 1 Tablet by mouth every 4 hours as needed for Pain, Severe. 30 Tablet 08/11/20 24 Active Fluticasone Propionate 50 MCG/ACT Nasal Suspension (Flonase)Indica tions:Chronic nasal congestion Administer 1 Theodore into each nostril in the morning and 1 Theodore before bedtime. 15.8 mL 4 08/18/20 24 Active fluticasone (FLONASE) 50 MCG/ACT nasal spray Administer 2 Sprays into each nostril in the morning. 2 08/13/20 17 024 Discontinued Vancomycin HCl 125 MG Oral Capsule (Vancocin)Indic ations:Clostrid ium difficile diarrhea Take 1 Capsule by mouth every 6 hours for 7 days. 28 Capsule 08/11/20 24 024 documented as of this encounter (statuses as [...] 1 57.9 Started: 09/26/1967 Smokeless Tobacco: Never Tobacco Cessation:Ready to Q uit: Not Asked; Counseling Given: Not Answered Comments:Occasionally uses e-cigarettes Alcohol Use Standard Drinks/Week Comments No 0 (1 standard drink = 0.6 oz pur e alcohol) Comments No Sex and Gender Information Value Date Recorded Sex Assigned at Not on file Legal Sex Female 7:01 AM EST Gender Identity Not on file Sexual Orientation Not on file documented as of this encounter Last Filed Vital Signs Vital Sign Reading Time Taken Comments Blood Pressure - - Pulse - - Temperature 35.9 C (96.6 F) 08/18/2024 9:31 AM ES T Respiratory Rate - - Oxygen Saturation - - Inhaled Oxygen Concentration - - Weight 70.1 kg (154 lb 8 oz) 08/18/2024 9:31 AM EST Height 160 cm (5' 3") 08/18/2024 9:31 AM EST Body Mass Index 27.37 08/18/2024 9:31 AM EST documented in this encounter Patient Instructions * Patient Instructions* Sebastian Hernandez PA-C - 08/18/2024 10:09 AM EST Education of epistaxis prevention was provided, which includes: 1. NeilMed or similar nasal irrigations twice a day 2. Griggs spray or saline mist spray 4 times a day and as needed to keep nasal mucosa moist 3. Avoid nasal cannula for supplemental oxygen if required, can use face tent or face mask instead. 4. Use of a humidifier in the bedroom 5. Vaseline in bilateral nasal vestibules twice a day (after using NeilMed) If patient has an episode of epistaxis: 1. Can use over the counter Oxymetazoline spray (Afrin) in both nostrils 2. Hold firm pressure over the soft portion of the nose, as demonstrated in clinic for 20 minutes. NO PEEKING. 3. Lean forward so blood is not swallowed or aspirated 4. If still bleeding after 20 minutes can repeat steps 1-3 one more time 5. If still bleeding proceed to nearest Emergency department or Urgent care -Use flonase nasal spray twice a day as directed today (point outward toward outer corner of eye/ear on same side). -Cool mist humidifier in bedroom overnight -Do all of the above for minimum of 6-8 weeks for maximum benefit documented in this encounter Progress Notes * Sebastian Hernandez PA-C - 08/18/2024 9:30 AM EST Images from the original note were not included. 08/18/2024 Nursing Notes: Roderick Binh Mo, [facility] 08/18/24 0932 Signed Chief Complaint Patient presents with NEW PATIENT Bilateral ear fullness and hearing loss Sierra Wang is a 68 year old female who presents today with bilateral ear fullness and hearing loss that began 2 months ago after she had a bilateral ear infection. HISTORY OF PRESENT ILLNESS This 68 year old YO female is seen at the request of Akbar Daniel DO for the evaluation of left RYAN Her symptoms started several months ago. Associated symptoms include bilateral hearing loss , bilateral aural pressure, and bilateral otalgia. She denies bilateral otorrhea and bilateral tinnitis. Admitted to [facility] for generalized weakness, diarrhea, AHI. Noted to have "opacified left mastoid air cells and fluid within left middle ear. Findings may reflect otomastoiditis. Small amount of fluid within the right mastoid air cells" on head CT. Treated with IV Unasyn and transitioned to PO Augmentin for 8 days on discharge. Feels like both ears clogged up and decreased hearing L>R. + hx of otologic surgeries-- tubes when she was a child, several sets up until she was a teen + hx of recurrent OM Remaining ear review of symptoms reveals: Head trauma: denied Dizziness: vertigo and balance issues for years-- worse with movements Noise exposure: no occupational exposure and no firearm exposure Problem List Patient Active Problem List Diagnosis Chronic coronary artery disease S/P coronary artery bypass with four autogenous grafts Anemia Tobacco use disorder Anxiety disorder DM type 2 causing neurological disease (HCC) HTN, goal to be determined Backache COPD, severity to be determined ([facility]) B12 deficiency Chronic HFrEF (heart failure with reduced ejection fraction) ([facility]) Dyslipidemia, goal LDL below 100 Iron deficiency anemia, unspecified Mitral valve disease Osteoporosis Paroxysmal atrial fibrillation (HCC) Migraine without aura and without status migrainosus, not intractable Peripheral arterial disease ([facility]) S/P femoral-popliteal bypass surgery Past Medical History: Diagnosis Date Anxiety CAD (coronary artery disease) Chronic anemia Gastric ulcer Smoker Type II or unspecified type diabetes mellitus with neurological manifestations, not stated as uncontrolled(250.60) ([facility]) Past Surgical History: Procedure Laterality Date CABG, ARTERIAL, SINGLE 01/15/2012 CORONARY ARTERY BYPASS GRAFT USING ARTERY 1 GRAFT [place] [facility] [place] ONLY) small bowel resection REMOVAL OF APPENDIX 23 years ago REMOVE CATARACT, INSERT LENS PROSTH Left 10/21/2019 left EXTRACAPSULAR CATARACT REMOVAL WITH INTRAOCULAR LENS performed by Tay Acevedo MD at OR [facility] REMOVE CATARACT, INSERT LENS PROSTH Right 11/04/2019 right EXTRACAPSULAR CATARACT REMOVAL WITH INTRAOCULAR LENS performed by Tay Acevedo MD at OR [facility] REMOVE GALLBLADDER 25 years ago REMOVE PANCREAS, PARTIAL ([place]) REMOVE STOMACH, PARTIAL REMOVE TONSILS & ADENOIDS, AGE 12+ REPAIR CORONARY ARTERY, GRAFT CABG 8 yrs ago Medications Current Outpatient Medications Medication Sig Dispense Refill LORAZEPAM 1 MG PO TABS Take 1 Tablet by mouth in the morning and 1 Tablet at noon and 1 Tablet before bedtime. ondansetron (ZOFRAN) 8 MG Tablet Take 1 Tablet by mouth in the morning. 0 isosorbide mononitrate SA (IMDUR) 30 MG TB24 Take 1 Tablet by mouth in the morning. Metoprolol Succinate ER 50 MG Oral Tablet Extended Release 24 Hour (toPROL XL) Take 1 Tablet by mouth in the morning. In the morning.. Eliquis 5 MG Oral Tablet Take 1 Tablet by mouth in the morning and 1 Tablet before bedtime. Pravastatin Sodium 40 MG Oral Tablet (Pravachol) TAKE 1 TABLET BY MOUTH EVERYDAY AT BEDTIME 90 Tablet 3 Vitamin D 25 MCG (1000 UT) Oral Tablet Take 1 Tablet by mouth in the morning. 30 Tablet 11 traZODone HCl 150 MG Oral Tablet (Desyrel) Take 1 Tablet by mouth at bedtime. Iron Dextran 50 MG/ML Injection Solution (Infed) Administer 50 mg intravenously. Receives infusionsfor 3 weeks, three times a year. Albuterol Sulfate HFA 108 (90 Base) MCG/ACT Inhalation Aerosol Solution INHALE 2 PUFFS EVERY 4 HOURS NEEDED FOR SHORTNESS OF BREATH 18 g 3 Calcitonin (Columbus) 200 UNIT/ACT Nasal Solution (Fortical) Administer 1 Theodore into one nostril in the morning. alternate nostrils.. 3 mL 11 Gabapentin 800 MG Oral Tablet (Neurontin) TAKE 1 TABLET BY MOUTH IN THE MORNING, AT NOON, IN THE EVENING, AND BEFORE BEDTIME. 360 Tablet 3 Omeprazole 40 MG Oral Capsule Delayed Release (PriLOSEC) TAKE 1 CAPSULE BY MOUTH IN THE MORNING ANDBEFORE BEDTIME 180 Capsule 1 Losartan Potassium 50 MG Oral Tablet (Cozaar) Take 1 Tablet by mouth in the morning. 90 Tablet 3 Loperamide HCl 2 MG Oral Capsule (Imodium) Take 1 Capsule by mouth in the morning and 1 Capsule at noon and 1 Capsule in the evening. 270 Capsule 5 oxyCODONE HCl 5 MG Oral Tablet (Oxy IR) Take 1 Tablet by mouth every 4 hours as needed for Pain, Severe. 30 Tablet 0 Fluticasone Propionate 50 MCG/ACT Nasal Suspension (Flonase) Administer 1 Theodore into each nostril in the morning and 1 Theodore before bedtime. 15.8 mL 4 NITROGLYCERIN 0.4 MG SL SUBL as needed (Patient not taking: Reported on 08/18/2024) 25 Tab 5 No current facility-administered medications for this visit. Allergies Review of patient's allergies indicates: Allergen Reactions Benzyl Alcohol Anaphylaxis Iodinated Contrast Media Lisinopril Chills/rigors Prochlorperazine Anaphylaxis and Edema airway Promethazine Anaphylaxis Angioedema Saccharin Anaphylaxis Amoxicillin Other (Please comment) Pt c/o headaches with amox Erythromycin Other (Please comment) Pt has headaches and earaches with this medication. Furosemide Itching Iodine Itching Allergy as per patient with itching. Simvastatin Itching Family History No family history on file. Social History Social History Tobacco Use Smoking status: Every Day Current packs/day: 1.00 Average packs/day: 1 pack/day for 57.9 years (57.9 ttl pk-yrs) Types: Cigarettes Start date: 09/26/1966 Smokeless tobacco: Never Tobacco comments: Occasionally uses e-cigarettes Substance Use Topics Alcohol use: No Vaping/E-Cigarette Use Vaping/E-Cigarette Substances Vaping/E-Cigarette Devices REVIEW OF SYMPTOMS: Negative for constitutional, eyes, cardiac, pulmonary, hepatic, renal, digestive, hematologic, epileptic, syncopal, musculo-skeletal, mental health, integumentary, hypertensive, lipid, arthritic, diabetic, thyroid, or neurologic disorders (except as listed in the PMH and Problem List). PHYSICAL EXAMINATION: Vital Signs: Filed Vitals: 08/18/24 0931 Temp: 35.9 C (96.6 F) TempSrc: Tympanic Weight: 70.1 kg (154 lb 8 oz) Height: 1.6 m (5' 3") General: this is a healthy appearing female who appears her stated age. The patient is alert and appropriately verbally conversant without hoarseness. Face: The face was inspected and no cutaneous masses or lesions were visualized. There was no erythema or edema noted. Facial movement was symmetric without weakness. No skin lesions were detected. There was no sinus tenderness elicited. The parotid and submandibular glands were normal to palpation. Eyes: Examination of the eyes revealed no lesions. Pupils were equal, round, and reactive to light and accommodation. Extra-ocular muscle function was intact. No nystagmus was observed. Nose: Septum nonobstructing, turbinates normal, no masses, polyps, or mucopus. Oral Cavity: Examination of the oral cavity revealed no mass lesions nor infection. The palate was noted to be intact without evidence of clefting. The tongue exhibited normal mobility. Mucosa was moist without lesion. The lips were free of lesion. Gums were free of inflammation. Dentition: unremarkable Oropharynx: The oral pharynx was free of mass lesion or mucosal abnormality. The palate was noted to be without lesion. The uvula was normal appearing. The tonsils were surgically absent. Ears: Examination of the ears revealed that the auricles were normally formed with no lesions. The external auditory canals were cleaned of any obstructing cerumen. See below procedure note. The tympanic membranes were intact, right with non purulent effusion, left slight retracted. Neck: Visualization and palpation of the neck revealed no mass lesions, no thyromegaly or thyroid masses. No skin lesions or inflammatory processes were detected. The cervical musculature was normal to palpation. Lymphatics (cervical): There were no palpable lymph nodes in the posterior triangle, submandibular triangle, jugulodigastric region, or central neck. Lungs: normal respiratory effort Heart: normal rate Tympanometry 49781 Right: Flat with normal equivalent volume ("Type B") Left: Negative tympanometric peak pressure with normal static admittance and equivalent volume ("Type C") Audiogram: ASSESSMENT: 1. Hearing loss, mixed, bilateral 2. Chronic nasal congestion - Fluticasone Propionate 50 MCG/ACT Nasal Suspension (Flonase); Administer 1 Theodore into each nostril in the morning and 1 Theodore before bedtime. Dispense: 15.8 mL; Refill: 4 3. Hx of epistaxis Plan: Discussed in office tube placement vs. Continued monitoring. Pt is quite bothered by her ears and would like to proceed with tube placement. Will contact laurieis prescriber to see if she can hold few days prior to placement. F/U sooner with any concerns. Pt verbalized understanding and agrees with plan. Questions/Concerns addressed. KAREY Seaman Otolaryngology - Head and Neck Surgery [place], [place] 08/18/24 I spent a total of 30-39 minutes (exact time 33 mins) on the date of service in preparation, delivery, and documentation of the care provided to Sierra Wang excluding any time spent in the performance of separately billed services or time spent by another provider/QHP. documented in this encounter Nursing Notes * Binh Vaughn CMA - 08/18/2024 9:31 AM EST Chief Complaint Patient presents with NEW PATIENT Bilateral ear fullness and hearing loss Sierra Wang is a 68 year old female who presents today with bilateral ear fullness and hearing loss that began 2 months ago after she had a bilateral ear infection. documented in this encounter Miscellaneous Notes * Addendum Note - Sebastian Hernandez PA-C - 08/19/2024 12:47 PM ESTAddended by: SEBASTIAN HERNANDEZ on: 08/19/2024 12:47 PM Modules accepted: Level of Service documented in this encounter Plan of Treatment Upcoming Encounters Date Type Department Care Team (Late st Contact Info) Description 10/01/2024 11:40 AM EST Office Visit Family Practice [facility] [address] [place] [address] Emani Parikh CRNP [address] [place] [id number] 10/08/2024 9:00 AM EST Office Visit Otolaryngology [facility] [address] [place] [address] Rolando Ervin, DO [address] [place] [address] 02/04/2025 11:40 AM EDT Office Visit [facility] [address] [place] [address] Emani Parikh CRNP [address] [place] [address] 08/18/2025 10:20 AM EST Office Visit [facility] [address] [place] [address] Akbar Daniel, DO [address] [place] [id number] Health Maintenance Due Date Last Done Comments DISCUSS TOBACCO CESSATION (REFER TO SMARTSET #[id number]) 1955 Pneumococcal Vaccine: 65+ Years (1 of [...] Diabetic Foot Exam 06/16/2023 06/16/2022 COVID-19 Vaccine (1 - 2023- season) 2024 Influenza Vaccine (FLU shot) (#1) 2024 HbA1c 02/08/2025 08/11/2024, 09/18, 08/22/2022, Additional history exists GFR 08/11/2025 08/11/2024, 09/18, 08/22/2022, Additional history exists O2 ASSESSMENT COMPLETED IN PAST YEAR FOR COPD 08/11/2025 08/11/2024 Colonoscopy 11/06/2032 11/06/2022, 03/02/2022 Colorectal Cancer Screening 11/06/2032 Lung Cancer Screening Completed 01/03/2012 VITAMIN D LEVEL ONCE IN A LIFETIME-USE SMARTSET# [id number] Completed 01/10/2024, 10/11/2023, 12/02/2021, Additional history exists [...] this encounter Medical Devices Implanted Type Area Newsagent Device Identifier Shelf Expiration Date Model / Serial / Lot Graft Marker Coronary - [id number] [place] [facility] [place] Aorta VM CARDIO VASCULAR 04/16/2014 [id number] / / [id number] Sut Steel 6 M654g - [id number] Implanted:Qty: 6 on [place]/2012 [place] [facility] [place]: Chest DO NOT USE 10/17/2016 M654G / / [id number] Sut Steel 6 M654g - [id number] Implanted:Qty: 2 on [place]/2012 [place] [facility] [place]: Chest DO NOT USE 10/17/2016 M654G / / [id number] Graft Marker Coronary - [id number] Implanted:Qty: 1 [place] [facility] [place]: Aorta VM CARDIO VASCULAR 08/16/2013 [id number] / / [id number] Lens Intraoc 15.5 - [id number] - [id number] Implanted:Qty: 1 on 10/21/2019 by Tay Acevedo MD at OR [facility] Left: Eye BAUSCH & LOMB 01/15/2024 [id number] / [id number] / Lens Intraoc 16.0 - [id number] - [id number] Implanted:Qty: 1 on 11/04/2019 by Tay Acevedo MD at OR [facility] Right: Eye BAUSCH & LOMB 05/17/2024 [id number] / [id number] / documented as of this encounter Visit Diagnoses Diagnosis Hearing loss, mixed, bilateral- Primary Mixed hearing loss, bilateral Chronic nasal congestion Other diseases of nasal cavity and sinuses Hx of epistaxis Personal history of other diseases of respiratory system documented in this encounter Advance Directives * Full Code (Latest Code Status on File) Date Activated Date Inactivated Comments 01/15/2012 3:49 PM 01/20/2012 4:10 PM This order re flects the patients wishes and were consensually agreed upon. Care Teams Auto Detailer Relationship Specialty Start Date End Date Akbar Daniel DO [address] [place] [address] PCP - General Family Medicine 08/22/22 documented as of this encounter
--- OUTSIDE RECORDS SUMMARY | 2024-08-25 08:18 | External Medical Summary | Summary of Care ---
Author Name Unknown Organization [facility] Address [address] [facility] [place] [address] Phone [phone] Care Team Providers Care District Sales Leader Name Role Phone Mallorie Danielranda Castellanosrazia Primary Care Provider Reason for Visit * Reason Onset Date Comments Follow Up 08/19/2024 Encounter Details Date Type Department Care Team (Late st Contact Info) Description 08/19/2024 Telephone [facility] [place] [address] [phone] Amrik Hernandez PA-C [address] [place] [address] Follow Up Allergies Active Allergy Reactions Criticality Noted Date [...] Aerosol SolutionIndicati ons:COPD, severity to be determined ([facility]) INHALE 2 PUFFS EVERY 4 HOURS NEEDED FOR SHORTNESS OF BREATH 18 g 3 4 Active Calcitonin ([place]) 200 UNIT/ACT Nasal Solution (Fortical)Indica tions:Compressio n fracture of lumbar vertebra, unspecified lumbar vertebral level, initial encounter ([facility]) Administer 1 [place] into one nostril in the morning. alternate [...] Suspension (Flonase)Indicat ions:Chronic nasal congestion Administer 1 [place] into each nostril in the morning and 1 [place] before bedtime. 15.8 mL 4 4 Active [...] encounter Miscellaneous Notes * Telephone Encounter - Amrik Hernandez PA-C - 08/20/2024 12:35 PM EST Thank you! Amrik Hernandez PA-C * Telephone Encounter - Ursula Gupta LPN - 08/20/2024 11:50 AM EST Received fax from [facility] Cardiology stating pt may hold Eliquis two days prior to ear tube procedure. Called and made pt aware, pt voiced understanding and made note of it. Amrik MIX * Telephone Encounter - Ursula Gupta LPN - 08/20/2024 8:[address] Borja office returned call, will check with him on med hold and get back to us. * Telephone Encounter - Ursula Gupta LPN - 08/19/2024 3:18 PM EST Patient states prescriber is Dr. Borja at [facility] Cardiology. Called Dr. Borja's office and had to leave a message for a return call back. * Telephone Encounter - mArik Hernandez PA-C - 08/19/2024 12:42 PM EST Please call pt and ask who prescribes her Eliquis-- if non [facility] please get office info from patient, call them and see if it is okay for her to stop Eliquis few days prior to BMT placement in office and resume day after which is scheduled for 10/08/24. Thank you & let me know if you have any questions! Amrik Hernandez PA-C documented in this encounter Plan of Treatment Upcoming Encounters Date Type Department Care Team (Late st Contact Info) Description 10/01/2024 11:40 AM EST Office Visit [facility] [address] [place] [address] Emani Parikh CRNP [address] [place] [address] 10/08/2024 9:00 AM EST Office Visit Otolaryngology [facility] [address] [place] [address] Rolando Ervin DO [address] [place] [address] 02/04/2025 11:40 AM EDT Office Visit [facility] [address] [place] [address] Emani Parikh CRNP [address] [place] [address] 08/18/2025 10:20 AM EST Office Visit Family Practice [facility] [address] [place] [phone] Akbar Daniel, [address] [place] [address] Health Maintenance Due Date Last Done Comments DISCUSS TOBACCO CESSATION (REFER TO SMARTSET #0562) 1955 Pneumococcal Vaccine: 65+ Years (1 of [...] D LEVEL ONCE IN A LIFETIME-USE SMARTSET# 19409 Completed 01/10/2024, 10/11/2023, 12/02/2021, Additional history exists [...] this encounter Medical Devices Implanted Type Area Floor Grinder Device Identifier Shelf Expiration Date Model / Serial / Lot Graft Marker Coronary - [id number] Implanted:Qty: 1 on 01/15/2012 at [place] [facility] [place]A: Aorta VM CARDIO VASCULAR 04/16/2014 [id number] / / [id number] Sut Steel 6 M654g - [id number] Implanted:Qty: 6 on 01/15/2012 at [place] [facility] N/A: Chest DO NOT USE 10/17/2016 M654G / / [id number] Sut Steel 6 M654g - [id number] Implanted:Qty: 2 on 01/15/2012 at [place] [facility] N/A: Chest DO NOT USE 10/17/2016 M654G / / [id number] Graft Marker Coronary - [id number] Implanted:Qty: 1 on 01/15/2012 at [place] [facility] N/A: Aorta VM CARDIO VASCULAR 08/16/2013 [id number] / / [id number] Lens Intraoc 15.5 - [id number] - [id number] Implanted:Qty: 1 on 10/21/2019 by Tay Acevedo MD at OR [facility] Left: Eye BAUSCH & LOMB 01/15/2024 [id number] / [id number] / Lens Intraoc 16.0 - [id number] - [id number] Implanted:Qty: 1 on 11/04/2019 by Tay Acevedo MD at [facility] Right: Eye BAUSCH & LOMB 05/17/2024 [id number] / [id number] / documented as of this encounter Advance Directives * Full Code (Latest Code Status on File) Date Activated Date Inactivated Comments 01/15/2012 3:49 PM 01/20/2012 4:10 PM This order re flects the patients wishes and were consensually agreed upon. Care Teams District Sales Leader Relationship Specialty Start Date End Date Akbar Daniel DO [address] [place] [address] PCP - General Family Medicine 08/22/22 documented as of this encounter
--- OUTSIDE RECORDS SUMMARY | 2024-08-25 08:18 | External Medical Summary | Summary of Care ---
Author Name Unknown Organization [facility] Address [address] [place] [address] Phone [phone] Care Team Providers Care Client Finance Analyst Name Role Phone Akbar Daniel DO Primary Care Provider Reason for Visit * Reason Comments NEW PATIENT Bilateral ear fullne ss and hearing loss * Evaluate & Treat - Unlimited Visits (Within 3 days (urgent)) - Authorized Specialty Diagnoses / Procedures Referred By Froylan marie Referred To Contact Otolaryngology Diagnoses Bilateral chronic serous otitis media Akbar Daniel DO [address] [place] [address] Phone: tel: fax: Referral ID Status Reason Start Date Expiration Date Visits Requested Visits Authorized [id number] Authorized Specialty Services Required [phone] Encounter Details Date Type Department Care Team (Late st Contact Info) Description 08/18/2024 9:30 AM EST Office Visit Otolaryngology [facility] [address] [place] [address] Sebastian Hernandez PA-C [address] [place] [address] Hearing loss, mixed, bilateral*; Chronic nasal congestion; [...] Aerosol SolutionIndicat ions:COPD, severity to be determined ([facility]) INHALE 2 PUFFS EVERY 4 HOURS NEEDED FOR SHORTNESS OF BREATH 18 g 3 06/04/20 24 Active Calcitonin ([place]) 200 UNIT/ACT Nasal Solution (Fortical)Indic ations:Compress ion fracture of lumbar vertebra, unspecified lumbar vertebral level, initial encounter ([facility]) Administer 1 [place] into one nostril in the morning. alternate [...] HFrEF (heart failure with reduced ejection fraction) ([facility]) Take 1 Tablet by mouth in the [...] Suspension (Flonase)Indica tions:Chronic nasal congestion Administer 1 [place] into each nostril in the morning and 1 [place] before bedtime. 15.8 mL 4 08/18/20 24 [...] similar nasal irrigations twice a day 2. [place] spray or saline mist spray 4 times [...] included. 08/18/2024 Nursing Notes: Roderick Binh Mo, [facility] 08/18/24 0932 Signed Chief Complaint Patient presents [...] bilateral otorrhea and bilateral tinnitis. Admitted to [facility] for generalized weakness, diarrhea, AHI. Noted to [...] determined Backache COPD, severity to be determined ([facility]) B12 deficiency Chronic HFrEF (heart failure with reduced ejection fraction) ([facility]) Dyslipidemia, goal LDL below 100 Iron deficiency anemia, unspecified Mitral valve disease Osteoporosis Paroxysmal atrial fibrillation (HCC) Migraine without aura and without status migrainosus, not intractable Peripheral arterial disease ([facility]) S/P femoral-popliteal bypass surgery Past Medical History: Diagnosis Date Anxiety CAD (coronary artery disease) Chronic anemia Gastric ulcer Smoker Type II or unspecified type diabetes mellitus with neurological manifestations, not stated as uncontrolled(250.60) ([facility]) Past Surgical History: Procedure Laterality Date CABG, ARTERIAL, SINGLE 01/15/2012 CORONARY ARTERY BYPASS GRAFT USING ARTERY 1 GRAFT performed by JOHN ERWIN at OR [facility] [place] MISCELLANEOUS ORDER ([facility] ONLY) small bowel resection REMOVAL OF APPENDIX 23 years ago REMOVE CATARACT, INSERT LENS PROSTH Left 10/21/2019 left EXTRACAPSULAR CATARACT REMOVAL WITH INTRAOCULAR LENS performed by Tay Acevedo MD at OR [facility] REMOVE CATARACT, INSERT LENS PROSTH Right 11/04/2019 right EXTRACAPSULAR CATARACT REMOVAL WITH INTRAOCULAR LENS performed by Tay Acevedo MD at OR [facility] REMOVE GALLBLADDER 25 years ago REMOVE [...] SHORTNESS OF BREATH 18 g 3 Calcitonin ([place]) 200 UNIT/ACT Nasal Solution (Fortical) Administer 1 [place] into one nostril in the morning. alternate [...] 50 MCG/ACT Nasal Suspension (Flonase) Administer 1 [place] into each nostril in the morning and 1 [place] before bedtime. 15.8 mL 4 NITROGLYCERIN 0.4 [...] normal respiratory effort Heart: normal rate Tympanometry 60[address] Right: Flat with normal equivalent volume ("Type B") Left: Negative tympanometric peak pressure with normal static admittance and equivalent volume ("Type C") Audiogram: ASSESSMENT: 1. Hearing loss, mixed, bilateral 2. Chronic nasal congestion - Fluticasone Propionate 50 MCG/ACT Nasal Suspension (Flonase); Administer 1 [place] into each nostril in the morning and 1 [place] before bedtime. Dispense: 15.8 mL; Refill: 4 [...] [facility] [place] 08/18/24 I spent a total of [...] 11:40 AM EST Office Visit Family Practice [facility] [address] [place] [address] Emani Parikh CRNP [address] [place] [address] 10/08/2024 9:00 AM EST Office Visit Otolaryngology [facility] [address] [place] [address] Rolando Ervin, DO [address] [place] [address] 02/04/2025 11:40 AM EDT Office Visit [facility] [address] [place] [address] Emani Parikh CRNP [address] [place] [address] 08/18/2025 10:20 AM EST Office Visit [facility] [address] [place] [address] Akbar Daniel, DO [address] [place] [address] Health Maintenance Due Date Last Done Comments DISCUSS TOBACCO CESSATION (REFER TO SMARTSET #1738) 1955 Pneumococcal Vaccine: 65+ Years (1 of [...] D LEVEL ONCE IN A LIFETIME-USE SMARTSET# 32032 Completed 01/10/2024, 10/11/2023, 12/02/2021, Additional history exists [...] encounter Medical Devices Implanted Type Area Lumber Marker Device Identifier Shelf Expiration Date Model / Serial / Lot Graft Marker Coronary - [id number] Implanted:Qty: 1 on 01/15/2012 at OR [facility] [place] N/A: Aorta VM CARDIO VASCULAR 04/16/2014 [id number] / / [id number] Sut Steel 6 M654g - [id number] Implanted:Qty: 6 on 01/15/2012 at OR [facility] N/A: Chest DO NOT USE 10/17/2016 M654G / / [id number] Sut Steel 6 M654g - [id number] Implanted:Qty: 2 on 01/15/2012 at OR [facility] N/A: Chest DO NOT USE 10/17/2016 M654G / / [id number] Graft Marker Coronary - [id number] Implanted:Qty: 1 on 01/15/2012 at OR [facility] [place] N/A: Aorta VM CARDIO VASCULAR 08/16/2013 [id number] / / [id number] Lens Intraoc 15.5 - [id number] - [id number] Implanted:Qty: 1 on 10/21/2019 by Tay Acevedo MD at OR [facility] Left: Eye BAUSCH & LOMB 01/15/2024 [id number] / [id number] / Lens Intraoc 16.0 - [id number] - [id number] Implanted:Qty: 1 on 11/04/2019 by Tay Acevedo MD at OR [facility] Right: Eye BAUSCH & LOMB 05/17/2024 [id number] / [id number] / documented as of this encounter Visit [...] and were consensually agreed upon. Care Teams Client Finance Analyst Relationship Specialty Start Date End Date Akbar Daniel DO [address] [place] [address] PCP - General Family Medicine 08/22/22 documented as of this encounter
--- OUTSIDE RECORDS SUMMARY | 2024-08-25 08:18 | External Medical Summary | Summary of Care ---
Author Name Unknown Organization [facility] Address [address] [place] [address] Phone [phone] Care Team Providers Care Network Services Project Manager Name Role Phone Akbar Daniel DO Primary Care Provider Reason for Visit * Reason Onset Date Comments Advice 08/19/2024 Encounter Details Date Type Department Care Team (Late st Contact Info) Description 08/19/2024 Telephone Family Practice [facility] [address] [facility] [address] Akbar Daniel DO [address] [facility] [place] [address] Advice Allergies Active Allergy [...] Aerosol SolutionIndicati ons:COPD, severity to be determined ([facility]) INHALE 2 PUFFS EVERY 4 HOURS NEEDED FOR SHORTNESS OF BREATH 18 g 3 4 Active Calcitonin ([place]) 200 UNIT/ACT Nasal Solution (Fortical)Indica tions:Compressio n fracture of lumbar vertebra, unspecified lumbar vertebral level, initial encounter ([facility]) Administer 1 [place] into one nostril in the morning. alternate [...] Suspension (Flonase)Indicat ions:Chronic nasal congestion Administer 1 [place] into each nostril in the morning and 1 [place] before bedtime. 15.8 mL 4 4 Active [...] 11:02 AM EST Outcome Approved today by Britney OLIVEIRAP 2017 PA Case: [id number], Status: Approved, Coverage Starts on: 09/17/2023 12:00:00 AM, Coverage Ends on: 09/16/2025 12:00:00 AM. Questions? Contact . Authorization Expiration Date: 09/15/2025 Drug oxyCODONE HCl 5MG tablets ePA cloud logo Form Britney Electronic PA Form Called pt and informed of approval. * Telephone Encounter - Mago Tineo LPN - 08/19/2024 10:15 AM EST Called [facility] pharmacy-- Needs PA. [employer] pt D ID [id number] BIN [id number] N [id number] Medicare BIN [id number] [facility] [id number] [place] [id number] Grp [id number] COMPLETED PA ON CMM (Quintanilla: [id number]) Awaiting response. * Telephone Encounter - Mago Tineo LPN - 08/19/2024 8:57 AM EST Called the pharmacy-- closed currently. Called pt-- Informed of message below pt states they need either PA on oxycodone or alternative script. Will call [facility] @ [phone] * Telephone Encounter - Gabriela [...] pharmacy. Please reach out to pt at [phone] with any questions. documented in this encounter Plan of Treatment Upcoming Encounters Date Type Department Care Team (Late st Contact Info) Description 10/01/2024 11:40 AM EST Office Visit Family Practice [facility] [address] [address] Emani Parikh CRNP [address] [place] [address] 10/08/2024 9:00 AM EST Office Visit Otolaryngology [facility] [address] [place] [address] Rolando Ervin, [address] [place] [address] 02/04/2025 11:40 AM EDT Office Visit [facility] [address] [place] [id number] Emani Parikh CRNP [address] [place] [address] 08/18/2025 10:20 AM EST Office Visit [facility] [address] [place] [address] Akbar Daniel DO [address] [place] [address] Health Maintenance Due Date Last Done Comments DISCUSS TOBACCO CESSATION (REFER TO SMARTSET #0770) 1955 Pneumococcal Vaccine: 65+ Years (1 of [...] D LEVEL ONCE IN A LIFETIME-USE SMARTSET# 25501 Completed 01/10/2024, 10/11/2023, 12/02/2021, Additional history exists [...] this encounter Medical Devices Implanted Type Area Customer Care Assistant Device Identifier Shelf Expiration Date Model / Serial / Lot Graft Marker Coronary - [id number] Implanted:Qty: 1 on 01/15/2012 at [place] [facility] N/A: Aorta VM CARDIO VASCULAR 04/16/2014 96552 / / [id number] Sut Steel 6 M654g - [id number] Implanted:Qty: 6 on 01/15/2012 at [place] [facility] N/A: Chest DO NOT USE 10/17/2016 M654G / / [id number] Sut Steel 6 M654g - [id number] Implanted:Qty: 2 on 01/15/2012 at [place] [facility] N/A: Chest DO NOT USE 10/17/2016 M654G / / [id number] Graft Marker Coronary - [id number] Implanted:Qty: 1 on 01/15/2012 at OR [facility] N/A: Aorta VM CARDIO VASCULAR 08/16/2013 [id number] / / [id number] Lens Intraoc 15.5 - [id number] - [id number] Implanted:Qty: 1 on 10/21/2019 by Tay Acevedo MD at OR [facility] Left: Eye BAUSCH & LOMB 01/15/2024 [id number] / [id number] / Lens Intraoc 16.0 - [id number] - [id number] Implanted:Qty: 1 on 11/04/2019 by Tay Acevedo MD at OR [facility] Right: Eye BAUSCH & LOMB 05/17/2024 [id number] / [id number] / documented as of this encounter Advance Directives * Full Code (Latest Code Status on File) Date Activated Date Inactivated Comments 01/15/2012 3:49 PM 01/20/2012 4:10 PM This order re flects the patients wishes and were consensually agreed upon. Care Teams Network Services Project Manager Relationship Specialty Start Date End Date Akbar Daniel DO [address] [place] [address] PCP - General Family Medicine 08/22/22 documented as of this encounter
--- OUTSIDE RECORDS SUMMARY | 2024-08-25 08:19 | External Medical Summary | Summary of Care ---
Author Name Unknown Organization [facility] Address [address] [place] [address] Phone [phone] Care Team Providers Care Toll Bridge Operator Name Role Phone Fredy Akbar Castellanosrazia Primary Care Provider Encounter Details Date Type Department Care Team (Latest Contact Info) Description 08/18/2024 10:30 AM EST Office Visit Audiology [facility] [address] [place] [address] Cathy Esparza Au.D. [address] [place] [address] Mixed conductive and sensorineural hearing loss of left ear with restricted hearing of right ear* Allergies Active Allergy Reactions Criticality Noted Date [...] as of this encounter (statuses as of 08/18/2024) Medications LORAZEPAM 1 MG PO TABSIndications: Pt [...] SolutionIndicati ons:COPD, severity to be determined ([facility]) INHALE 2 PUFFS EVERY 4 HOURS NEEDED FOR SHORTNESS OF BREATH 18 g 3 4 Active Calcitonin ([place]) 200 UNIT/ACT Nasal Solution (Fortical)Indica tions:Compressio n fracture of lumbar vertebra, unspecified lumbar vertebral level, initial encounter ([facility]) Administer 1 [place] into one nostril in the morning. alternate [...] the morning. 90 Tablet 3 4 Active Vancomycin HCl 125 MG Oral Capsule (Vancocin)Indica tions:Clostridiu m difficile diarrhea Take 1 Capsule by mouth every 6 hours for 7 days. 28 Capsule 4 08/18/20 24 Active Loperamide HCl 2 MG Oral [...] Suspension (Flonase)Indicat ions:Chronic nasal congestion Administer 1 [place] into each nostril in the morning and 1 [place] before bedtime. 15.8 mL 4 4 Active documented as of this encounter (statuses as of 08/18/2024) Active Problems Problem Noted Date Diagnosed Date [...] as of this encounter (statuses as of 08/18/2024) Social History Tobacco Use Types Packs/Day Years [...] as of this encounter Progress Notes * Cathy Esparza Au.D. - 08/18/2024 10:12 AM EST Images from the original note were not included. Audiologic evaluation was completed on referral from Otolaryngology clinic. Tympanometry 17132 Right: Flat with normal equivalent volume ("Type B") Left: Negative tympanometric peak pressure with normal static admittance and equivalent volume ("Type C") Standard audiometric testing 82696 ABSD insert earphones Fair to Good reliability Right: sensorineural hearing loss Left: mixed hearing loss Speech recognition thresholds were consistent with hearing thresholds. Word recognition scores, obtained via monitored live voice were: right 84%, left 76% Frank Hahn, CCC-A 08/18/2024 10:12 AM Scan: audiogram, tympanograms documented in this encounter Plan of Treatment Upcoming Encounters Date Type Department Care Team (Late st Contact Info) Description 10/01/2024 11:40 AM EST Office Visit [facility] [address] [place] [address] Emani Parikh CRNP [address] [place] [address] 10/08/2024 9:00 AM EST Office Visit Otolaryngology [facility] [address] [place] [address] Rolando Ervin, DO [address] [place] [address] 02/04/2025 11:40 AM EDT Office Visit [facility] [address] [place] [address] Emani Parikh CRNP [address] [place] [address] 08/18/2025 10:20 AM EST Office Visit [facility] [address] [place] [address] Akbar Daniel, DO [address] [place] [address] Health Maintenance Due Date Last Done Comments DISCUSS TOBACCO CESSATION (REFER TO SMARTSET #0656) 1955 Pneumococcal Vaccine: 65+ Years (1 of [...] D LEVEL ONCE IN A LIFETIME-USE SMARTSET# 05594 Completed 01/10/2024, 10/11/2023, 12/02/2021, Additional history exists [...] this encounter Medical Devices Implanted Type Area Practice Business Asst Device Identifier Shelf Expiration Date Model / Serial / Lot Graft Marker Coronary - [id number] Implanted:Qty: 1 on 01/15/2012 at OR [facility] [place] [place] N/A: Aorta VM CARDIO VASCULAR 04/16/2014 [id number] / / [id number] Sut Steel 6 M654g - [id number] Implanted:Qty: 6 on 01/15/2012 at OR [facility] [place] [place] N/A: Chest DO NOT USE 10/17/2016 M654G / / [id number] Sut Steel 6 M654g - [id number] Implanted:Qty: 2 on 01/15/2012 at OR [facility] [place] [place] N/A: Chest DO NOT USE 10/17/2016 M654G / / [id number] Graft Marker Coronary - [id number] Implanted:Qty: 1 on 01/15/2012 at OR [facility] [place] [place] N/A: Aorta VM CARDIO VASCULAR 08/16/2013 [id number] / / [id number] Lens Intraoc 15.5 - [id number] - [id number] Implanted:Qty: 1 on 10/21/2019 by Tay Acevedo MD at OR [facility] Left: Eye BAUSCH & LOMB 01/15/2024 [id number] / [id number] / Lens Intraoc 16.0 - [id number] - [id number] Implanted:Qty: 1 on 11/04/2019 by Tay Acevedo MD at OR [facility] Right: Eye BAUSCH & LOMB 05/17/2024 [id number] / [id number] / documented as of this encounter Procedures Procedure Name Priority Date/Time Associated Diagnosis Comments AUDIOMETRIC RESULT 08/18/2024 documented in this encounter Results * AUDIOMETRIC RESULT (08/18/2024) 08/18/2024 Cathy Marie HEARING SERVICES Final Resul t documented in this encounter Visit Diagnoses Diagnosis Mixed conductive and sensorineural hearing loss of left ear with restricted hearing of right ear- Primary documented in this encounter Advance Directives * Full Code (Latest Code Status on File) Date Activated Date Inactivated Comments 01/15/2012 3:49 PM 01/20/2012 4:10 PM This order re flects the patients wishes and were consensually agreed upon. Care Teams Toll Bridge Operator Relationship Specialty Start Date End Date Akbar Daniel DO [address] [place] [address] PCP - General Family Medicine 08/22/22 documented as of this encounter
--- OUTSIDE RECORDS SUMMARY | 2024-08-25 08:19 | External Medical Summary | Summary of Care ---
Author Name Unknown Organization [facility] Address [address] [place] [place] [address] Phone [phone] Care Team Providers Care Industrial Gas Fitter Name Role Phone Akbar Daniel DO Primary Care Provider Reason for Referral * Evaluate & Treat - Unlimited Visits (Within 3 days (urgent)) - Authorized Specialty Diagnoses / Procedures Referred By Froylan marie Referred To Contact Otolaryngology Diagnoses Bilateral chronic serous otitis media Akbar Daniel DO [address] [facility] [place] [address] Phone: tel: fax: Referral ID Status Reason Start Date Expiration Date Visits Requested Visits Authorized [id number] Authorized Specialty Services Required [phone] Question Answer Referral Priority Within 3 days (urgent) Where should this appointment be scheduled? [facility] Reason for Referral Ear Conditions Specific Condition: Otalgia (Ear Pain/Perforated Ear Drum) Reason for Visit * Reason Comments Hospital Follow-Up Pt here for Hosp F/U . Pt admitted to [facility] on 08/01/24 due to a fall and general weakness and d/c 08/04/24. Pt states she has fallen approx 6 times since being home. Pt lives with . Pt c/o bilateral earpain x 1 month. Pt was discontinued Aldactone and Losartan while in hospital. 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 Take 1 Tablet by mouth in the morning and 1 Tablet at noon and 1 Tablet before bedtime. Active NITROGLYCERIN 0.4 MG SL SUBLIndication s:Chronic coronary artery disease,S/P coronary artery bypass with four autogenous grafts as needed 25 Tab 5 10/16/19 12 Active Additional Information Patient not taking.Reported on 08/11/2024 ondansetron (ZOFRAN) 8 MG Tablet Take 1 Tablet by mouth in the morning. 0 07/07/20 15 Active fluticasone (FLONASE) 50 MCG/ACT nasal spray Administer 2 Sprays into each nostril in the morning. 2 08/13/20 17 Active isosorbide mononitrate SA (IMDUR) 30 MG [...] Active Pravastatin Sodium 40 MG Oral Tablet (Pravachol)Ind ications:Coron alina artery disease involving autologous vein coronary bypass [...] HFA 108 (90 Base) MCG/ACT Inhalation Aerosol SolutionIndica tions:COPD, severity to be determined ([facility]) INHALE 2 PUFFS EVERY 4 HOURS NEEDED FOR SHORTNESS OF BREATH 18 g 3 06/04/20 24 Active Calcitonin ([place]) 200 UNIT/ACT Nasal Solution (Fortical)Lindsey cations:Compre ssion fracture of lumbar vertebra, unspecified lumbar vertebral level, initial encounter ([facility]) Administer 1 [place] into one nostril in the morning. alternate nostrils.. 3 mL 11 06/26/20 24 Active Gabapentin 800 MG Oral Tablet (Neurontin)Ind ications:Migra ine without aura and without status migrainosus, not intractable TAKE 1 TABLET BY MOUTH IN THE MORNING, AT NOON, IN THE EVENING, AND BEFORE BEDTIME. 360 Tablet 3 07/04/20 24 Active Omeprazole 40 MG Oral Capsule Delayed Release (PriLOSEC)Lindsey cations:GERD (gastroesophag eal reflux disease) TAKE 1 CAPSULE BY MOUTH IN THE MORNING AND BEFORE BEDTIME 180 Capsule 1 07/03/20 24 Active Losartan Potassium 50 MG Oral Tablet (Cozaar)Indica tions:Chronic HFrEF (heart failure with reduced ejection fraction) ([facility]) Take 1 Tablet by mouth in the morning. 90 Tablet 3 08/11/20 Active Vancomycin HCl 125 MG Oral Capsule (Vancocin)Lindsey cations:Clostr idium difficile diarrhea Take 1 Capsule by mouth every 6 hours for 7 days. 28 Capsule 08/11/20 24 Active Loperamide HCl 2 MG Oral Capsule (Imodium) Take 1 Capsule by mouth in the morning and 1 Capsule at noon and 1 Capsule in the evening. 270 Capsule 5 08/11/20 Active oxyCODONE HCl 5 MG Oral Tablet (Oxy IR) Take 1 Tablet by mouth every 4 hours as needed for Pain, Severe. 30 Tablet 08/11/20 Active Spironolactone 50 MG Oral Tablet (Aldactone) Take 1 Tablet by mouth in the morning and 1 Tablet before bedtime. 08/18/20 22 Discontinued Losartan Potassium 100 MG Oral Tablet (Cozaar) Take 1 Tablet by mouth at bedtime. 11/23/19 23 Discontinued predniSONE 20 MG Oral Tablet (Deltasone) Take 1 Tablet by mouth in the morning. 40 mg daily for 5 days, prescribed by Sabino PAULINO. 05/06/20 Discontinued(M edication List Clean Up) HYDROcodone-Ac etaminophen 5-325 MG Oral TabletIndicati ons:Compressio n fracture of lumbar vertebra, unspecified lumbar vertebral level, initial encounter ([facility]) Take 1 Tablet by mouth every 6 hours as needed for Pain, Mild. 15 Tablet 05/30/20 24 Discontinued(M edication List Clean Up) Amoxicillin-Po t Clavulanate 875-125 MG Oral Tablet (Augmentin) Take 1 Tablet by mouth in the morning and 1 Tablet before bedtime. 08/04/20 24 Discontinued(M edication List Clean Up) Vancomycin HCl 125 MG Oral Capsule (Vancocin) Take 1 Capsule by mouth every 6 hours. 08/04/20 24 Discontinued(R efill) documented as of this encounter (statuses as of 08/11/2024) Active Problems Problem Noted Date Diagnosed Date [...] as of this encounter (statuses as of 08/11/2024) Social History Tobacco Use Types Packs/Day Years [...] Sign Reading Time Taken Comments Blood Pressure 130/72 08/11/2024 11:13 AM EST Pulse 61 08/11/2024 11:13 AM EST Temperature 35.8 C (96.5 F) 08/11/2024 11:[address] Respiratory Rate 16 08/11/2024 11:13 AM EST Oxygen Saturation 97% 08/11/2024 11:13 AM EST Inhaled Oxygen Concentration - - Weight - - Height - - Body Mass Index - - documented in this encounter Progress Notes * Akbar Daniel, - 08/11/2024 11:13 AM EST Images from the original note were not included. Assessment and Plan Assessment & Plan Chronic Diarrhea/Hospital Discharge Severe, with 7-10 episodes per day. No change in character. Patient has a history of unresponsiveness to multiple treatments. Currently on an antibiotic course for C. diff infection. -Continue current antibiotic course and extend for an additional week. -Consider regular Imodium use to reduce frequency of bowel movements. -Order blood work today to assess hydration status, electrolyte levels, and white blood cell count. -Consider referral for a second opinion with a local metal sprayer protective coating. -continue work with PT for strength and improved walking without falls DMII Will check blood work And continue to monitor and adjust as needed Eustachian Tube Dysfunction Chronic ear discomfort with a history of infections. CT showed inflammation around the ears. -Refer to Ear, Nose, and Throat specialist for further evaluation and management. Hypokalemia and Hypomagnesemia History of recurrent low potassium and magnesium levels, likely exacerbated by chronic diarrhea. -Order blood work today to check current potassium and magnesium levels. -Consider adjustments to supplementation based on results. Hypotension History of low blood pressure, likely exacerbated by chronic diarrhea and dehydration. -Hold off on restarting Aldactone due to current fluid losses. -Consider restarting a low dose of Lisinopril or Losartan once hydration status improves. Back Pain Recurrent back pain, exacerbated by recent falls due to weakness. -Recommend [id number] Tylenol for pain management. General Health Maintenance / Followup Plans -Physical therapy at home three times a week to improve strength and mobility. -Nursing visits at home three times a week for general care. -Follow-up appointment to be scheduled after lab results are available. History of Present Illness Sierra Wang is a 68 year old female that presents for Hospital Follow-Up (Pt here for Hosp F/U. Pt admitted to [facility] on 08/01/24 due to a fall and general weakness and d/c 08/04/24. Pt states she has fallen approx 6 times since being home. Pt lives with . Pt c/o bilateral earpain x1 month. Pt was discontinued Aldactone and Losartan while in hospital.) History of Present Illness The patient, with a history of gastrointestinal issues, presents with severe diarrhea, occurring 7-10 times a day. The patient reports that the frequency and urgency of bowel movements have made it difficult to reach the bathroom in time. The patient also reports a significant decrease in energy and strength, resulting in frequent falls. The patient's legs reportedly 'give out,' causing her to collapse even when using a walker. The patient also reports discomfort in her ears, which has been ongoing for over a month. The patient has a history of low potassium and magnesium levels, and is concerned about these levels being off. The patient also has a history of high blood pressure, but reports that her blood pressure has mostly been high recently. Physical Exam Vitals: 08/11/24 1113 Temp: 96.5 F (35.8 C) Pulse: 61 Resp: 16 SpO2: 97% BP: 130/72 Wrap-Up Follow-up: Return in about 6 weeks (around 09/22/2024). | Check-out note: 6 week f/u with Jl, 6 month with Jl, 12 with me Time: Total time today was 45 minutes excluding any time spent in the performance of separately billed services. Text in this note was generated using an ambient documentation service. I discussed the use of a device to record and summarize our discussion today. All persons present during the encounter consented to its use. documented in this encounter Plan of Treatment Upcoming Encounters Date Type Department Care Team (Late st Contact Info) Description 08/18/2024 9:30 AM EST Office Visit Otolaryngology [facility] [address] [address] Amrik Hernandez PA-C [address] [place] [address] 10/01/2024 11:40 AM EST Office Visit [facility] [address] [place] [address] Emani Parikh CRNP [address] [place] [address] 02/04/2025 11:40 AM EDT Office Visit [facility] [address] [place] [address] Emani Parikh CRNP [address] [place] [address] 08/18/2025 10:20 AM EST Office Visit [facility] [address] [place] [address] Akbar Daniel DO [address] [place] [address] Scheduled Referrals Name Type Priority Associated Diagnoses Order Schedule ADULT/PEDS OTOLARYNGOLOGY REFERRAL OP Referral Within 3 days (urgent) Bilateral chronic serous otitis media Ordered: 08/11/2024 Health Maintenance Due Date Last Done Comments DISCUSS TOBACCO CESSATION (REFER TO SMARTSET #4786) 1955 Pneumococcal Vaccine: 65+ Years (1 of 2 - PCV) 1960 Depression Screening 1966 Albumin/Creatinine Ratio 1972 Alpha-1 Antitrypsin 1972 Diabetic Eye Exam 1972 DTap/Tdap Vaccines (1 - Tdap) 1973 Cologuard 12/31/1999 Fecal Occult Blood Test 12/31/1999 Sigmoidoscopy 12/31/1999 Zoster Vaccines (1 of 2) 2004 DXA Scan 09/18/2020 09/18/2018, 10/10/2016 Adult Wellness Visit 2020 Mammogram 04/05/2023 04/05/2022, /10/2016, 04/07/2015 Diabetic Foot Exam 06/16/2023 06/16/2022 HbA1c [...] D LEVEL ONCE IN A LIFETIME-USE SMARTSET# [id number] Completed 01/10/2024, 10/11/2023, 12/02/2021, Additional history exists [...] this encounter Medical Devices Implanted Type Area Strategic Debriefing Specialist Device Identifier Shelf Expiration Date Model / Serial / Lot Graft Marker Coronary - [id number] Implanted:Qty: 1 on 01/15/2012 [place] [facility] [place] Aorta VM CARDIO VASCULAR 04/16/2014 [id number] / / [id number] Sut Steel 6 M654g - [id number] Implanted:Qty: 6 on 01/15/2012 at [place] [facility] [place]A: Chest DO NOT USE 10/17/2016 M654G / / [id number] Sut Steel 6 M654g - [id number] Implanted:Qty: 2 on 01/15/2012 at [place] [facility] [place]A: Chest DO NOT USE 10/17/2016 M654G / / [id number] Graft Marker Coronary - [id number] Implanted:Qty: 1 on 01/15/2012 at [place] [facility] [place]A: Aorta VM CARDIO VASCULAR 08/16/2013 [id number] / / [id number] Lens Intraoc 15.5 - [id number] - [id number] Implanted:Qty: 1 on 10/21/2019 by Tay Acevedo MD at OR [facility] Left: Eye BAUSCH & LOMB 01/15/2024 [id number] / [id number] / Lens Intraoc 16.0 - [id number] - [id number] Implanted:Qty: 1 on 11/04/2019 by Tay Acevedo MD at OR [facility] Right: Eye BAUSCH & LOMB 05/17/2024 [id number] / [id number] / documented as of this encounter Visit Diagnoses Diagnosis DM type 2 causing neurological disease (HCC)- Primary Type II or unspecified type diabetes mellitus with neurological manifestations, not stated as uncontrolled COPD, severity to be determined ([facility]) Chronic airway obstruction, not elsewhere classified Chronic HFrEF (heart failure with reduced ejection fraction) ([facility]) Paroxysmal atrial fibrillation (HCC) Atrial fibrillation S/P coronary artery bypass with four autogenous grafts Postsurgical aortocoronary bypass status S/P femoral-popliteal bypass surgery Other postprocedural status Tobacco use disorder Ambulatory dysfunction Clostridium difficile diarrhea Intestinal infection due to clostridium difficile Hospital discharge follow-up Other follow-up examination Bilateral chronic serous otitis media Simple or unspecified chronic serous otitis media documented in this encounter Advance Directives * Full Code (Latest Code Status on File) Date Activated Date Inactivated Comments 01/15/2012 3:49 PM 01/20/2012 4:10 PM This order re flects the patients wishes and were consensually agreed upon. Care Teams Industrial Gas Fitter Relationship Specialty Start Date End Date Akbar Daniel DO [address] [place] [address] PCP - General Family Medicine 08/22/22 documented as of this encounter"
--- OUTSIDE RECORDS SUMMARY | 2024-08-25 08:19 | External Medical Summary | Summary of Care ---
Author Name Unknown Organization [facility] Address [address] [place] [address] Phone [phone] Care Team Providers Care Experimental Display Builder Name Role Phone Akabr Daniel DO Primary Care Provider Reason for Visit * Reason Onset Date Comments Advice 08/19/2024 Encounter Details Date Type Department Care Team (Late st Contact Info) Description 08/19/2024 Telephone Family Practice [facility] [address] [facility] [address] Akbar Daniel DO [address] [facility] [place] [address] Advice Allergies Active [...] Aerosol SolutionIndicati ons:COPD, severity to be determined ([facility]) INHALE 2 PUFFS EVERY 4 HOURS NEEDED FOR SHORTNESS OF BREATH 18 g 3 4 Active Calcitonin ([place]) 200 UNIT/ACT Nasal Solution (Fortical)Indica tions:Compressio n fracture of lumbar vertebra, unspecified lumbar vertebral level, initial encounter ([facility]) Administer [address] into one nostril in the morning. alternate [...] Suspension (Flonase)Indicat ions:Chronic nasal congestion Administer [address] into each nostril in the morning and [address] before bedtime. 15.8 mL 4 4 Active [...] on oxycodone or alternative script. Will call [facility] @ [phone] * Telephone Encounter - Gabriela [...] pharmacy. Please reach out to pt at [phone] with any questions. documented in this encounter Plan of Treatment Upcoming Encounters Date Type Department Care Team (Late st Contact Info) Description 10/01/2024 11:40 AM EST Office Visit [facility] [address] [place] [address] Emani Parikh CRNP [address] [place] [address] 10/08/2024 9:00 AM EST Office Visit Otolaryngology [facility] [address] [place] [address] Rolando Ervin, [address] [place] [address] 02/04/2025 11:40 AM EDT Office Visit [facility] [address] [place] [address] Emani Parikh CRNP [address] [place] [address] 08/18/2025 10:20 AM EST Office Visit [facility] [address] [place] [address] Akbar Daniel, DO [address] [place] [address] Health Maintenance Due Date Last Done Comments DISCUSS TOBACCO CESSATION (REFER TO SMARTSET #8193) 1955 Pneumococcal Vaccine: 65+ Years (1 of [...] D LEVEL ONCE IN A LIFETIME-USE SMARTSET# 70215 Completed 01/10/2024, 10/11/2023, 12/02/2021, Additional history exists [...] this encounter Medical Devices Implanted Type Area Birthing Nurse Device Identifier Shelf Expiration Date Model / Serial / Lot Graft Marker Coronary - [id number] [place] 1 [place] [facility] [place] Aorta VM CARDIO VASCULAR 04/16/2014 [id number] / / [id number] Sut Steel 6 M654g - [id number] Implanted:Qty: 6 on [place]15/2012 [place] [facility] [place]: Chest DO NOT USE 10/17/2016 M654G / / [id number] Sut Steel 6 M654g - [id number] Implanted:Qty: 2 on 01/15/2012 [place] [facility] [place]: Chest DO NOT USE 10/17/2016 M654G / / [id number] Graft Marker Coronary - [id number] Implanted:Qty: 1 on 01/15/2012 [place] [facility] [place] Aorta VM CARDIO VASCULAR 08/16/2013 [id number] / / [id number] Lens Intraoc 15.5 - [id number] - [id number] Implanted:Qty: 1 on 10/21/2019 by Tay Acevedo MD at OR [facility] Left: Eye BAUSCH & LOMB 01/15/2024 [id number] / [id number] / Lens Intraoc 16.0 - [id number] - [id number] Implanted:Qty: 1 on 11/04/2019 by Tay Acevedo MD at OR [facility] Right: Eye BAUSCH & LOMB 05/17/2024 [id number] / [id number] / documented as of this encounter Advance Directives * Full Code (Latest Code Status on File) Date Activated Date Inactivated Comments 01/15/2012 3:49 PM 01/20/2012 4:10 PM This order re flects the patients wishes and were consensually agreed upon. Care Teams Experimental Display Builder Relationship Specialty Start Date End Date Akbar Daniel DO [address] [place] [address] PCP - General Family Medicine 08/22/22 documented as of this encounter
--- OUTSIDE RECORDS SUMMARY | 2024-08-25 08:19 | External Medical Summary | Summary of Care ---
Author Name Unknown Organization [facility] Address [address] [place] [address] Phone [phone] Care Team Providers Care Independent Contractor Name Role Phone Akbar Daniel DO Primary Care Provider Reason for Visit * Reason Onset Date Comments Advice 08/15/2024 Encounter Details Date Type Department Care Team (Late st Contact Info) Description 08/15/[address] [facility] [address] [facility] [address] Akbar Daniel DO [address] [employer] [facility] [place] [address] Advice Allergies Active [...] as of this encounter (statuses as of 08/15/2024) Medications LORAZEPAM 1 MG PO TABSIndications: Pt [...] mouth in the morning. 0 5 Active fluticasone (FLONASE) 50 MCG/ACT nasal spray Administer 2 Sprays into each nostril in the morning. 2 7 Active isosorbide mononitrate SA (IMDUR) 30 MG [...] ons:COPD, severity to be determined ([facility]) INHALE 2 PUFFS EVERY 4 HOURS NEEDED FOR SHORTNESS OF BREATH 18 g 3 4 Active Calcitonin ([place]) 200 UNIT/ACT Nasal Solution (Fortical)Indica tions:Compressio n fracture of lumbar vertebra, unspecified lumbar vertebral level, initial encounter ([facility]) Administer 1 [place] into one nostril in the morning. alternate [...] HFrEF (heart failure with reduced ejection fraction) ([facility]) Take 1 Tablet by mouth in [...] for Pain, Severe. 30 Tablet 4 Active documented as of this encounter (statuses as of 08/15/2024) Active Problems Problem Noted Date Diagnosed Date [...] as of this encounter (statuses as of 08/15/2024) Social History Tobacco Use Types Packs/Day Years [...] encounter Miscellaneous Notes * Telephone Encounter - Torri Malave LPN - 08/15/2024 4:43 PM EST Pt aware of all advice and states understanding. Repeated directions back to me. * Telephone Encounter - Diana Hardin MD - 08/15/2024 4:37 PM EST Today: Take losartan 100mg now Recheck in 1hr. If BP still >180/100, go to ED. If doesn't go to ED, then tomorrow: Losartan 50mg twice per day. First dose in AM, 2nd dose in PM. Restart aldactone 50mg/day. IF at any point, headache or dsypnea on exertion worsens, to go ED. * Telephone Encounter - Citlalli Barron LPN - 08/15/2024 4:28 PM EST Pt state she has chronic diarrhea Pt takes Imdur Pt states she stretches her medication out because if she takes all together she gets dizzy. Pt takes Imdur and metoprolol first thing in the morning. Pt states she takes the losartan at 10pm typically. Pt notes she is still on half dose. Pt states she has taken losartan for years and has had chronic diarrhea for over 35 years. Pt states she feels that she is keeping hydrated. Pt states she does have a BP cuff and is able to use. Pt states her BP cuff is having similar readings to HH * Telephone Encounter - Diana Hardin MD - 08/15/2024 4:18 PM EST These blood pressures are quite a bit higher than the 1 taken in our office 4 days ago. Spironolactone was held due to recent diarrhea and electrolyte derangements. Plan was to restart low dose of lisinopril or losartan once hydration improved Has patient's diarrhea improved? Is she taking her Imdur? Has she taken her losartan and metoprolol today? Does she have a blood pressure cuff at home that she is able to use? * Telephone Encounter - Citlalli Barron LPN - 08/15/2024 4:11 PM EST Pt refusing ER as she just got home Sending to both providers that are here today now Please advise * Telephone Encounter - Giana Kaye LPN - 08/15/2024 4:00 PM EST HH Concerns Estelita RN, Calling from: Team Report/Concerns of: BP Symptoms: see narrative Vitals: T 98.2 P80 irreg RR 18 BP right 210/100 left 180/94 recheck right 184/100 SP O2 94 RA Lung sounds clear Narrative: pt has headache and has some sob with activity no cp, numbness facial flushing. Pt is on losartan 50 mg, metoprolol 25 mg BID (she doesn't take 50 at once in am or she feels off in the pm. ) Pt doesn't want to go to ER- she refuses . Estelita feels she just needs med adjustments. Called office spoke with Citlalli she will have covering provider review and contact the pt. Pharm selected Pt phone# [phone] * Telephone Encounter - Claudia Campoverde OSA - 08/15/2024 3:55 PM EST Reason for patient's call: Estelita from Team [facility] is calling in with an update pt's bp now is reading 210/100 on right arm 180/94 on the left after taking 50 of the losartan and then did take theright arm again and it was 184/100. She would like to speak to a nurse for the rest of the information Caller was transferred to Giana at the nurse line. * Telephone Encounter - Giana Kaye LPN - 08/15/2024 12:10 PM EST HH Concerns Estelita GREENE, Calling from: team HH Report/Concerns of: BP Symptoms: see narrative Narrative: physical therapy saw pt today and called Estelita GREENE to report increased Bp. pt's BP today 200/90 right arm 184/94 left arm. No sx reported. No other VS were provided to Estelita. The therapist reported pt had taken losartan 30 minutes prior to checking BP. Estelita going to pt's home next and will call back with recheck BP and any sx. This is FYI * Telephone Encounter - Lola Nath OSA - 08/15/2024 12:02 PM EST Reason for patient's call: Estelita from Team home health care requesting to speak with nurse in reference to patient blood pressure. Caller was transferred to Giana at the nurse line. documented in this encounter Plan of Treatment Upcoming Encounters Date Type Department Care Team (Late st Contact Info) Description 08/18/2024 9:30 AM EST Office Visit Otolaryngology [facility] [address] [address] Amrik Hernandez PA-C [address] [place] [address] 10/01/2024 11:40 AM EST Office Visit [facility] [address] [place] [address] Emani Parikh CRNP [address] [place] [address] 02/04/2025 11:40 AM EDT Office Visit [facility] [address] [place] [address] Emani Parikh CRNP [address] [place] [address] 08/18/2025 10:20 AM EST Office Visit [facility] [address] [place] [address] Akbar Daniel DO [address] [place] [address] Health Maintenance Due Date Last Done Comments DISCUSS TOBACCO CESSATION (REFER TO SMARTSET #3402) 1955 Pneumococcal Vaccine: 65+ Years (1 of [...] D LEVEL ONCE IN A LIFETIME-USE SMARTSET# 39097 Completed 01/10/2024, 10/11/2023, 12/02/2021, Additional history exists [...] this encounter Medical Devices Implanted Type Area Pot Builder Device Identifier Shelf Expiration Date Model / Serial / Lot Graft Marker Coronary - [id number] [place]ed:Q[place] 1 [place] [facility] [place] Aorta VM CARDIO VASCULAR 04/16/2014 [id number] / / [id number] Sut Steel 6 M654g - [id number] Implanted:Qty: 6 on 01/15/2012 [place] [facility] [place]/A: Chest DO NOT USE 10/17/2016 M654G / / [id number] Sut Steel 6 M654g - [id number] Implanted:Qty: 2 on 01/15/2012 [place] [facility] [place]/A: Chest DO NOT USE 10/17/2016 M654G / / [id number] Graft Marker Coronary - [id number] Implanted:Qty: 1 on 01/15/2012 [place] [facility] [place]/A: Aorta VM CARDIO VASCULAR 08/16/2013 [id number] / / [id number] Lens Intraoc 15.5 - [id number] - [id number] Implanted:Qty: 1 on 10/21/2019 by Tay Acevedo MD at OR [facility] Left: Eye BAUSCH & LOMB 01/15/2024 [id number] / [id number] / Lens Intraoc 16.0 - [id number] - [id number] Implanted:Qty: 1 on 11/04/2019 by Tay Acevedo MD at OR [facility] Right: Eye BAUSCH & LOMB 05/17/2024 [id number] / [id number] / documented as of this encounter Advance Directives * Full Code (Latest Code Status on File) Date Activated Date Inactivated Comments 01/15/2012 3:49 PM 01/20/2012 4:10 PM This order re flects the patients wishes and were consensually agreed upon. Care Teams Independent Contractor Relationship Specialty Start Date End Date Akbar Daniel DO [address] [place] [address] PCP - General Family Medicine 08/22/22 documented as of this encounter
[2024-08-25] MEDS: ISOSORBIDE MONO EXTENDED REL 30 MG TABCR PO SCH (08:20)
[2024-08-25] MEDS: METOPROLOL SUCC 50MG EXT REL TAB PO SCH (08:20)
--- OUTSIDE RECORDS SUMMARY | 2024-08-25 08:20 | External Medical Summary ---
Author Name Unknown Address Unknown Organization [id number]:[facility] [address] - [address] [place] [address] Laboratory Report Ordering Provider Test Date Status MARIAN SANTOS 08/11/2024 12:06:14 Final Observation Date Value Abnormality Reference (Units ) Status SYNC LEUKOCYTES IN BLOOD BY AUTOMATED COUNT 08/11/2024 12:06:14 12.27 Above high normal 4.00-10.80 (K/uL) Final Segs 08/11/2024 12:06:14 75.9 Above high normal 40.0-75.0 (%) Final Lymphs % 08/11/2024 12:06:14 18.0 18.0-42.0 (%) Final Monos 08/11/2024 12:06:14 5.4 1.0-11.0 (%) Final Eosinophils 08/11/2024 12:06:14 0.5 0.0-6.0 (%) Final Basos 08/11/2024 12:06:14 0.2 0.0-2.0 (%) Final Absolute Segs 08/11/2024 12:06:14 9.31 Above high normal 1.80-7.70 (K/uL) Final Lymphs, absolute 08/11/2024 12:06:14 2.21 1.00-4.80 (K/ul) Final Monos, Abs 08/11/2024 12:06:14 0.66 0.00-1.10 (K/uL) Final Eos, Abs 08/11/2024 12:06:14 0.06 0.00-0.70 (K/uL) Final Basos, Abs 08/11/2024 12:06:14 0.03 0.00-0.20 (K/uL) Final [facility] - [address] [place] [address]
--- OUTSIDE RECORDS SUMMARY | 2024-08-25 08:20 | External Medical Summary ---
Author Name Unknown Address Unknown Organization [id number]:[facility] - [address] [facility] [address] Laboratory Report Ordering Provider Test Date Status MARIAN SANTOS 08/11/2024 12:06:14 Final Observation Date Value Abnormality Reference (Units ) Status HbA1C 08/11/2024 12:06:14 6.2 Above high normal 4. 0-5.6 (%) Final The use of HbA1c to monitor glycemic status is based on normal hemoglobin and HbA composition. This test should not be used in patients with abnormal hemoglobin that affects the half life of the red blood cell or the in vivo glycation rates. Glucose, estimated average 08/11/2024 12:06:14 131 Above high normal <126 (mg/dL) [place] tenorio Performing Location [facility] [address] [facility] [address]
--- OUTSIDE RECORDS SUMMARY | 2024-08-25 08:20 | External Medical Summary ---
Author Name Unknown Address Unknown Organization [id number]:[facility] [place] [facility] [address] - [address] [place] [address] Laboratory Report Ordering Provider Test Date Status MARIAN SANTOS 08/11/2024 12:06:14 Final Observation Date Value Abnormality Reference (Units ) Status BUN 08/11/2024 12:06:14 15 6-20 (mg/dL) Final Creatinine 08/11/2024 12:06:14 0.7 0.5-1.0 (mg/dL) Final Glomerular filtration rate/1.73 sq M.predicted [Volume Rate/Area] in Serum, Plasma or Blood by Creatinine-based formula (CKD-EPI) 08/11/2024 12:06:14 >90 >=60 (mL/min) Final eGFR is calculated based on the CKD-EPI 2020 equation. Sodium 08/11/2024 12:06:14 142 135-146 (m mol/L) Final Potassium 08/11/2024 12:06:14 3.0 Below low normal 3.5 -5.1 (mmol/L) Final Cl 08/11/2024 12:06:14 109 Above high normal 98 -107 (mmol/L) Final CO2 08/11/2024 12:06:14 25 22-32 (mmo l/L) Final Anion gap 08/11/2024 12:06:14 8 7-15 (mmol /L) Final Glucose 08/11/2024 12:06:14 91 70-120 (mg /dL) Final Albumin 08/11/2024 12:06:14 3.0 Below low normal 3.8 -5.0 (g/dL) Final AST (Aspartate aminotransferase) 08/11/2024 12:06:14 34 10-35 (U/L) Fin al Alk Phos 08/11/2024 12:06:14 76 35-130 (U/ L) Final Bilirubin, Total 08/11/2024 12:06:14 0.2 <=1 .2 (mg/dL) Final Calcium 08/11/2024 12:06:14 8.6 8.4-10.2 ( mg/dL) Final Protein 08/11/2024 12:06:14 5.6 Below low normal 6.0 -8.3 (g/dL) Final ALT (Alanine aminotransferase) 08/11/2024 12:06:14 26 10-35 (U/L) [place] tenorio Performing Location [facility] [place] [facility] - [address] [facility] [address]
--- OUTSIDE RECORDS SUMMARY | 2024-08-25 08:20 | External Medical Summary | Summary of Care ---
Author Name Unknown Organization [facility] Address [address] [place] [address] Phone [phone] Care Team Providers Care Legal Collector Name Role Phone Mallorie Danielranda Castellanosrazia Primary Care Provider Reason for Visit * Reason Comments Outpatient Testing Encounter Details Date Type Department Care Team (Late st Contact Info) Description 08/11/2024 12:10 PM EST Laboratory Laboratory, [facility] [address] [place] [address] [facility] [address] [place] [address] Dyslipidemia, goal LDL below 100; DM type 2 causing neurological disease (HCC); Encounter for long-term (current) use of medications; Clostridium difficile diarrhea; Hospital discharge follow-up Allergies Active Allergy Reactions Criticality Noted Date [...] of 08/11/2024) Medications LORAZEPAM 1 MG PO TABSIndications: Pt [...] Aerosol SolutionIndicati ons:COPD, severity to be determined (HCC) INHALE 2 PUFFS EVERY 4 HOURS NEEDED FOR SHORTNESS OF BREATH 18 g 3 4 Active Calcitonin ([place]) 200 UNIT/ACT Nasal Solution (Fortical)Indica tions:Compressio n fracture of lumbar vertebra, unspecified lumbar vertebral level, initial encounter ([facility]) Administer 1 [place] into one nostril in the morning. alternate [...] HFrEF (heart failure with reduced ejection fraction) ([facility]) Take 1 Tablet by mouth in the [...] the evening. 270 Capsule 5 4 Active documented as of this encounter [...] 9:30 AM EST Office Visit Otolaryngology [facility] [address] [place] [address] Amrik Hernandez PA-C [address] [place] [address] 10/01/2024 11:40 AM EST Office Visit Family Practice [facility] [address] [place] [address] Emani Parikh CRNP [address] [place] [address] 02/04/2025 11:40 AM EDT Office Visit [facility] [address] [place] [address] Emani Parikh CRNP [address] [place] [address] 08/18/2025 10:20 AM EST Office Visit [facility] [address] [place] [address] Akbar Daniel DO [address] [place] [address] Pending Results Name Type Priority Associated Diagnoses Date /Time COMPREHENSIVE METABOLIC PANEL Lab Routine Dyslipidemia, goal LDL below 100 08/11/2024 12:06 PM EST HEMOGLOBIN A1C Lab Routine DM type 2 causing neurological disease (HCC) 08/11/2024 12:06 PM EST LIPID PANEL WITH DIRECT LDL IF TG IS HIGH Lab Routine Dyslipidemia, goal LDL below 100 08/11/2024 12:06 PM EST MAGNESIUM Lab Routine Encounter for long-term (current) use of medications 08/11/2024 12:06 PM EST VITAMIN B12 Lab Routine Encounter for long-term (current) use of medications 08/11/2024 12:06 PM EST CBC WITH WBC DIFFERENTIAL Lab Routine Clostridium difficile diarrhea Hospital discharge follow-up 08/11/2024 12:06 PM EST CBC Lab Routine Clostridium difficile diarrhea Hospital discharge follow-up 08/11/2024 12:06 PM EST DIFFERENTIAL, AUTOMATED Lab Routine Clostridium difficile diarrhea Hospital discharge follow-up 08/11/2024 12:06 PM EST Health Maintenance Due Date Last Done Comments DISCUSS TOBACCO CESSATION (REFER TO SMARTSET #3040) 1955 Pneumococcal Vaccine: 65+ Years (1 of [...] D LEVEL ONCE IN A LIFETIME-USE SMARTSET# 97730 Completed 01/10/2024, 10/11/2023, 12/02/2021, Additional history exists [...] this encounter Medical Devices Implanted Type Area Vamp Maker Device Identifier Shelf Expiration Date Model / Serial / Lot Graft Marker Coronary - [id number] [place] [facility] [place] Aorta VM CARDIO VASCULAR 04/16/2014 [id number] / / [id number] Sut Steel 6 M654g - [id number] Implanted:Qty: 6 [place]15/2012 [place] [facility] [place]: Chest DO NOT USE 10/17/2016 M654G / / [id number] Sut Steel 6 M654g - [id number] Implanted:Qty: 2 [place] 01/15/2012 [place] [facility] [place]A: Chest DO NOT USE 10/17/2016 M654G / / [id number] Graft Marker Coronary - [id number] Implanted:Qty: 1 [place] 01[place]15/2012 [place] [facility] [place]A: Aorta VM CARDIO VASCULAR 08/16/2013 [id number] / / [id number] Lens Intraoc 15.5 - [id number] - [id number] Implanted:Qty: 1 on 10/21/2019 by Tay Acevedo MD at OR [facility] Left: Eye BAUSCH & LOMB 01/15/2024 [id number] / [id number] / Lens Intraoc 16.0 - [id number] - [id number] Implanted:Qty: 1 on 11/04/2019 by Tay Acevedo MD at [facility] Right: Eye BAUSCH & LOMB 05/17/2024 [id number] / [id number] / documented as of this encounter Visit Diagnoses Diagnosis Dyslipidemia, goal LDL below 100 Other and unspecified hyperlipidemia DM type 2 causing neurological disease (HCC) Type II or unspecified type diabetes mellitus with neurological manifestations, not stated as uncontrolled Encounter for long-term (current) use of medications Encounter for long-term (current) use of other medications Clostridium difficile diarrhea Intestinal infection due to clostridium difficile Hospital discharge follow-up Other follow-up examination documented in this encounter Advance Directives * Full Code (Latest Code Status on File) Date Activated Date Inactivated Comments 01/15/2012 3:49 PM 01/20/2012 4:10 PM This order re flects the patients wishes and were consensually agreed upon. Care Teams Legal Collector Relationship Specialty Start Date End Date Akbar Daniel DO [address] [place] [address] PCP - General Family Medicine 08/22/22 documented as of this encounter
--- OUTSIDE RECORDS SUMMARY | 2024-08-25 08:20 | External Medical Summary ---
Author Name Unknown Address Unknown Organization K01:[facility] [place] [address] [place] [address] Laboratory Report Ordering Provider Test Date Status CHEPE NÚÑEZ 08/11/2024 12:06:14 Final Observation Date Value Abnormality Reference (Units ) Status Vitamin B12 08/11/2024 12:06:14 831 162-3905 (pg/mL) Final Performing Location LAB[facility]ATORY [facility] - [address] [place] [address]
--- OUTSIDE RECORDS SUMMARY | 2024-08-25 08:20 | External Medical Summary | Summary of Care ---
Author Name Unknown Organization [facility] [address] [facility] [address] Phone [phone] Care Team Providers Care Oil Lease Operator Name Role Phone Akbar Daniel Primary Care Provider Reason for Visit * Reason Onset Date Comments Hospital Follow-Up 08/05/2024 [facility] 08/04 COSMO call Encounter Details Date Type Department Care Team (Late st Contact Info) Description 08/05/2024 Telephone Family Practice [facility] [address] [facility] [place] [address] Kierra Coyle, RN Hospital Follow-Up ([facility] 08/04 COSMO call) Allergies Active Allergy Reactions Criticality Noted Date Comments Benzyl Alcohol Anaphylaxis High 10/16/2011 Furosemide Itching 10/16/2011 Iodinated Contrast Media High 10/10/2023 Iodine Itching 10/16/2011 Allergy as per patient with itching. Lisinopril Chills/rigors High 01/29/2012 Prochlorperazine Anaphylaxis,Edema airway High 10/16/2011 Promethazine Anaphylaxis High 10/16/2011 Angioedema Saccharin Anaphylaxis High 10/16/2011 Simvastatin Itching 10/16/2011 documented as of this encounter (statuses as of 08/06/2024) Medications LORAZEPAM 1 MG PO TABSIndications: Pt also taking 1 tab in evening. Take 1 Tablet by mouth in the morning and 1 Tablet at noon and 1 Tablet before bedtime. Active NITROGLYCERIN 0.4 MG SL SUBLIndications: Chronic coronary artery disease,S/P coronary artery bypass with four autogenous grafts as needed 25 Tab 5 2 Active ondansetron (ZOFRAN) 8 MG Tablet Take [...] and 1 Tablet before bedtime. 2 Active Spironolactone 50 MG Oral Tablet (Aldactone) Take 1 Tablet by mouth in the morning and 1 Tablet before bedtime. 2 Active Losartan Potassium 100 MG Oral Tablet (Cozaar) Take 1 Tablet by mouth at bedtime. 3 Active Pravastatin Sodium 40 MG Oral Tablet [...] weeks, three times a year. 3 Active predniSONE 20 MG Oral Tablet (Deltasone) Take 1 Tablet by mouth in the morning. 40 mg daily for 5 days, prescribed by Sabino PAULINO. 4 Active HYDROcodone-Acet aminophen 5-325 MG Oral TabletIndication s:Compression fracture of lumbar vertebra, unspecified lumbar vertebral level, initial encounter ([facility]) Take 1 Tablet by mouth every 6 hours as needed for Pain, Mild. 15 Tablet 4 Active Additional Information Patient not taking.Reported on 07/10/2024 Albuterol Sulfate HFA 108 (90 Base) MCG/ACT Inhalation Aerosol SolutionIndicati ons:COPD, severity to be determined ([facility]) INHALE 2 PUFFS EVERY 4 HOURS NEEDED FOR SHORTNESS OF BREATH 18 g 3 4 Active Calcitonin ([place]) 200 UNIT/ACT Nasal Solution (Fortical)Indica tions:Compressio n fracture of lumbar vertebra, unspecified lumbar vertebral level, initial encounter ([facility]) Administer 1 [place] into one nostril in the morning. alternate [...] BEFORE BEDTIME 180 Capsule 1 4 Active Magnesium Oxide 400 MG Oral Tablet Take 1 Tablet by mouth in the morning. 4 08/09/20 Active Potassium Chloride ER 10 MEQ Oral Tablet Extended Release Take 1 Tablet by mouth in the morning. 08/09/20 Active Amoxicillin-Pot Clavulanate 875-125 MG Oral Tablet (Augmentin) Take 1 Tablet by mouth in the morning and 1 Tablet before bedtime. 4 08/12/20 Active Vancomycin HCl 125 MG Oral Capsule (Vancocin) Take 1 Capsule by mouth every 6 hours. 4 08/12/20 24 Active documented as of this encounter (statuses as of 08/06/2024) Active Problems Problem Noted Date Diagnosed Date [...] as of this encounter (statuses as of 08/06/2024) Social History Tobacco Use Types Packs/Day Years [...] encounter Miscellaneous Notes * Telephone Encounter - Kierra Coyle RN - 08/06/2024 2:09 PM EST Attempted Phone Call Second Attempt Call Outcome Left Voicemail/Message * Telephone Encounter - Kierra Coyle RN - 08/05/2024 3:35 PM EST Transitions of Care Note Reason for Referral:Recent Admission Phone visit for follow up: COSMO Admitted to: [facility], Date: 08/01 Discharged to: home, Date: 08/04 Diagnosis driving hospitalization: C diff colitis Attempted Phone Call First Attempt Call Outcome Left Voicemail/Message If pt reaches the call center she can be transferred to ar at [phone]. Thank you. * Telephone Encounter - Kierra Coyle RN - 08/05/2024 1:55 PM EST Transitions of Care Note Reason for Referral:Recent Admission Phone visit for follow up: COSMO Admitted to: [facility], Date: 08/01 Discharged to: home, Date: 08/04 Diagnosis driving hospitalization: C diff colitis Called pt. Team HH is with her right now. Will call back in about an hour. Pt is in agreement with this documented in this encounter Plan of Treatment Upcoming Encounters Date Type Department Care Team (Late st Contact Info) Description 08/11/2024 11:00 AM EST Office Visit Family [facility] [address] [place] [address] Akbar Daniel DO [address] [place] [address] Health Maintenance Due Date Last Done Comments DISCUSS TOBACCO CESSATION (REFER TO SMARTSET #3150) 1955 Pneumococcal Vaccine: 65+ Years (1 of [...] D LEVEL ONCE IN A LIFETIME-USE SMARTSET# 06607 Completed 01/10/2024, 10/11/2023, 12/02/2021, Additional history exists [...] this encounter Medical Devices Implanted Type Area Concrete Block Layer Device Identifier Shelf Expiration Date Model / Serial / Lot Graft Marker Coronary - [id number] Implanted:Qty: 1 on 01/15/2012 at OR [facility] N/A: Aorta VM CARDIO VASCULAR 04/16/2014 [id number] / / [id number] Sut Steel 6 M654g - [id number] Implanted:Qty: 6 on 01/15/2012 at OR [facility] N/A: Chest DO NOT USE 10/17/2016 [id number] / / [id number] Sut Steel 6 M654g - [id number] Implanted:Qty: 2 on 01/15/2012 at OR [facility] N/A: Chest DO NOT USE 10/17/2016 M654G / / [id number] Graft Marker Coronary - [id number] Implanted:Qty: 1 on 01/15/2012 at OR [facility] N/A: Aorta VM CARDIO VASCULAR 08/16/2013 [id number] / / [id number] Lens Intraoc 15.5 - [id number] - [id number] Implanted:Qty: 1 on 10/21/2019 by Tay Acevedo MD at OR [facility] Left: Eye BAUSCH & LOMB 01/15/2024 [id number] / [id number] / Lens Intraoc 16.0 - [id number] - [id number] Implanted:Qty: 1 on 11/04/2019 by Tay Acevedo MD at OR [facility] Right: Eye BAUSCH [employer] LOMB 05/17/2024 [id number] / [id number] / documented as of this encounter Advance Directives * Full Code (Latest Code Status on File) Date Activated Date Inactivated Comments 01/15/2012 3:49 PM 01/20/2012 4:10 PM This order re flects the patients wishes and were consensually agreed upon. Care Teams Oil Lease Operator Relationship Specialty Start Date End Date Akbar Daniel DO [address] [place] [address] PCP - General Family Medicine 08/22/22 documented as of this encounter
--- OUTSIDE RECORDS SUMMARY | 2024-08-25 08:20 | External Medical Summary ---
Author Name Unknown Address Unknown Organization [id number]:[facility] [address] [place] [address] Laboratory Report Ordering Provider Test Date Status MARIAN SANTOS 08/11/2024 12:06:14 Final Observation Date Value Abnormality Reference (Units ) Status WBC, Total 08/11/2024 12:06:14 12.27 Above high normal 4 .00-10.80 (K/uL) Final RBC 08/11/2024 12:06:14 3.37 3.85-5.15 (M/uL) Final Hemoglobin 08/11/2024 12:06:14 11.8 Below low normal 12 .0-15.3 (g/dL) Final HCT 08/11/2024 12:06:14 35.3 Below low normal 36. 0-45.2 (%) Final MCV 08/11/2024 12:06:14 104.7 81.5-97.5 (fL) Final MCH 08/11/2024 12:06:14 35.0 27.0-34.0 (pg) Final MCHC 08/11/2024 12:06:14 33.4 32.0-36.0 (g/dL) Final RDW 08/11/2024 12:06:14 13.5 11.5-15.5 (%) Final Platelets 08/11/2024 12:06:14 238 140-400 (K /uL) Final MPV 08/11/2024 12:06:14 9.8 6.6-11.1 ( fL) Final Performing Location [facility] [address] [place] [address]
--- OUTSIDE RECORDS SUMMARY | 2024-08-25 08:20 | External Medical Summary ---
Author Name Unknown Address Unknown Organization [id number]:[facility] - [address] [facility] [place] [address] Laboratory Report Ordering Provider Test Date Status MARIAN SANTOS 08/11/2024 12:06:14 Final Observation Date Value Abnormality Reference (Units ) Status Triglyceride 08/11/2024 12:06:14 73 <=174 ( mg/dL) Final Triglyceride Reference Range s (mg/dL):
<150 Acceptable
150-174 Borderline high
175-499 High
>=500 Very high Cholesterol 08/11/2024 12:06:14 85 <200 (mg /dL) Final Total Cholesterol Reference Ranges (mg/dL):
<200 Desirable
200-239 Borderline high
>=240 High HDL 08/11/2024 12:06:14 39 Below low normal >49 (mg/dL) Final HDL Cholesterol Reference Ra nges (mg/dL):
>=60 High (Desirable)
<50 Low (Undesirable) For Females
<40 Low (Undesirable) For Males NON-HDL CHOLESTEROL 08/11/2024 12:06:14 46 <=159 (mg/dL) Final Non-HDL Cholesterol Referenc e Range (mg/dL):
<100 Target level for high risk ASCVD patient
<130 Optimal for general population
130-159 Near optimal for general population
160-189 Borderline High
190-219 High
>=220 Very High LDL, (calculated) 08/11/2024 12:06:14 31 <= 129 (mg/dL) Final LDL Cholesterol Reference Ra nges (mg/dL):
<70 Target level for high risk ASCVD patient
<100 Optimal for general population
100-129 Near optimal for general population
130-159 Borderline high
160-189 High
>=190 Very high Performing Location [facility] - [address] [facility] [address]
--- OUTSIDE RECORDS SUMMARY | 2024-08-25 08:20 | External Medical Summary ---
Author Name Unknown Address Unknown Organization K01:[facility] - [address] [place] [address] Laboratory Report Ordering Provider Test Date Status CHEPE NÚÑEZ 08/11/2024 12:06:14 Final Observation Date Value Abnormality Reference (Units ) Status Magnesium 08/11/2024 12:06:14 2.2 1.5-2.6 (m g/dL) Final Performing Location [facility] - [address] [place] [address]
[2024-08-25] MEDS ORDERED: LORazepam 2 MG/1 ML VIAL IV PRN (08:49)
[2024-08-25] MEDS: methylPREDNISolone 40 MG in SYRINGE 0 ML IV SCH (09:29)
--- NOTE | 2024-08-25 09:33 | Electrocardiogram Report ---
Test Reason : Blood Pressure : */* mmHG Vent. Rate : 80 BPM Atrial Rate : 80 BPM P-R Int : 144 ms QRS Dur : 110 ms QT Int : 434 ms P-R-T Axes : 38 -23 162 degrees QTcB Int : 500 ms Sinus rhythm with Premature atrial complexes Left ventricular hypertrophy with repolarization abnormality Old Inferior infarct T-wave inversion in Anterior leads Abnormal ECG When compared with ECG of 24-Aug-2024 22:29, T-wave inversion in Anterior leads less pronounced Confirmed by Kt Goodman ([id number]) on 08/25/2024 9:33:10 AM Referred By: REFERRED SELF Confirmed By: Kt Goodman
[2024-08-25] MEDS: FORMOTEROL 20 MCG/2 ML VIAL NEB SCH (09:49)
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
--- NOTE | 2024-08-25 10:13 | Electrocardiogram Report ---
Test Reason : Blood Pressure : */* mmHG Vent. Rate : 85 BPM Atrial Rate : 85 BPM P-R Int : 148 ms QRS Dur : 110 ms QT Int : 440 ms P-R-T Axes : 36 -33 134 degrees QTcB Int : 523 ms Normal sinus rhythm with sinus arrhythmia Left ventricular hypertrophy with repolarization abnormality ( R in aVL , Oscar product ) Prolonged QT Abnormal ECG When compared with ECG of 03-Aug-2024 11:26, Premature ventricular complexes are no longer Present Criteria for Inferior infarct are no longer Present Confirmed by Kt Goodman ([id number]) on 08/25/2024 10:13:02 AM Referred By: REFERRED SELF Confirmed By: Kt Goodman
[2024-08-25] MEDS: UMECLIDINIUM/VILANTEROL 62.5/25MCG 7 PUFFS/INHALER INH SCH (10:53)
[2024-08-25] MEDS: cefTRIAXone SODIUM 2,000 MG/50 ML BAG IV SCH (10:53)
[2024-08-25] MEDS: DOXYCYCLINE HYCLATE 100 MG in DEXTROSE 5% MINI-B 100 ML IV STA (10:54)
[2024-08-25] MEDS: dexAMETHasone**PF** 10 MG/ML VIAL IV SCH (11:06)
--- NOTE | 2024-08-25 11:16 | Communication Note ---
Date of Service: August 25, 2024 Admitted for AMS per who reports patient has been acting lethargic. Patient reports "only taking one oxy daily" VBG with CO2 59 and ph 7.19 Labs reviewed: leukocytosis 14--> 18 (baseline elevation of 12 iso chronic tobacco), MCV 112 HAYDEN to 1.32 (baseline 0.7-0.8) trop to 234.5, UDS + opiates as expected iso recent oxy, biofire negative On Bipap on exam, awakens and responds appropriately Coarsecough, diminished bibasilar breath sounds #Acute hypoxic hypercapnic resp failure #Acute COPD #Current tobacco use #?opioid overdose: low suspicion as patient did not respond much to narcan and still lethargic CXR with atelectatic changes CTX and doxy started procal added tsh, b12, folate added Decadron 10mg daily (allergic to preservative in solumedrol) pulmicort and performist bid LAMA/LABA/ICS at this time nicotine patch will need 2 step Repeat vbg #NSTEMI II likely demand iso hypoxic CTM on tele, Cards following: conservative management at this time #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
[2024-08-25] MEDS: LORazepam 0.5 MG TAB PO PRN (11:37)
[2024-08-25 12:39] LABS: Thyroid Stimulating Hormone 0.998 uIu/ml (0.300-4.500)
[2024-08-25 13:02] LABS: Folate (Folic Acid),Ser orPlas 6.52 ng/ml (>5.38)
[2024-08-25] MEDS: ALBUT/IPRATROP 3MG/0.5MG NEB 3 ML VIAL NEB SCH (13:58)
[2024-08-25] MEDS: PIPERACILLIN/TAZOBACTAM 4.5 GM/100 ML BAG IV SCH (14:16)
[2024-08-25 16:10] LABS: HCO3 VBG 20 mmol/L; Oxygen Saturation VBG 91.6 %; PCO2 VBG 46 mmHg (38-50); PO2 VBG 62 mmHg; pH VBG 7.25 (7.36-7.41)
[2024-08-25 19:12] LABS: Appearance Urine Cloudy (Clear); Bilirubin Urine Negative (Negative); Blood Urine 1+ (Negative); Color Urine Yellow; Glucose Urine UA Negative (Negative); Ketones Urine Negative (Negative); Leukocyte Esterase Urine 1+ (Negative); Nitrite Urine Negative (Negative); Protein Urine 3+ (Negative); Specific Gravity Urine 1.025 (1.000-1.030); Urobilinogen Urine Negative (Negative)
[2024-08-25 19:19] LABS: Hyaline Casts Urine Present /lpf (None Presnt)
[2024-08-25 19:21] LABS: Bacteria Urine 1+ (None Seen); Granular Casts Urine Present /lpf (None Prsent); WBC Urine 21-50 /hpf (0-5); White Blood Cell Casts Urine Present /lpf (None Prsent)
[2024-08-25] MEDS: BUDESONIDE 0.5 MG/2 ML VIAL (PULMICORT) NEB SCH (19:53)
[2024-08-25 20:00] LABS: Cdiff Toxin B Gene (2yr or >) Positive Cdiff Gene (Neg)
[2024-08-25] MEDS ORDERED: DOXYCYCLINE HYCLATE 100 MG CAP PO SCH (21:00)
[2024-08-25 21:22] LABS: Cdiff Antigen Negative; Cdiff Toxin A+B Negative Cdiff Toxin (Negative)
[2024-08-25] MEDS: ACETAMINOPHEN 325 MG TAB PO STA (22:41)
[2024-08-26 08:31] LABS: Hematocrit (blood only) 34.7 % (37.0-47.0); Mean Corpuscular Hgb Conc 31.7 g/dL (32.0-36.0); Mean Corpuscular Volume 110.5 fL (80.0-100.0); Mean Platelet Volume 10.7 fL (9.4-12.4); Platelet Count 179 K/uL (130-400); RDW Coefficient of Variation 13.8 % (11.5-14.5); RDW Standard Deviation 56.7 fL (36.4-46.3); Red Blood Count 3.14 M/uL (4.20-5.40); White Blood Count 15.27 K/ul (4.8-10.8)
[2024-08-26] MEDS: VANCOMYCIN HCL 125 MG/2.5ML SOLN PO SCH (08:34)
[2024-08-26] MEDS: CHERRY SYRUP 5 ML UDP PO SCH (08:35)
[2024-08-26 08:55] LABS: BUN Creatinine Ratio 8.3 (10-20); Calcium 7.4 mg/dl (8.6-10.3); Magnesium 1.7 mg/dl (1.7-2.4); Phosphorus 4.3 mg/dl (2.5-4.9); Potassium 3.7 mmol/L (3.5-5.1)
--- NOTE | 2024-08-26 11:03 | Nuclear Medicine Report ---
NM pul perfusion CLINICAL HISTORY: acute COPD Technique: Perfusion imaging was performed in multiple projections after the intravenous injection of 5.2 mCi of Tc-99m labeled macroaggregated albumin (MAA). Comparison: None available at the time of this dictation. FINDINGS/IMPRESSION: Homogeneous perfusion was seen bilaterally. Low probability of pulmonary emboli sm. ACT 112: Negative or not required by law. Electronically signed by: Lit Leyva M.D. 08/26/2024 11:02 AM
--- NOTE | 2024-08-26 12:44 | Hospitalist Progress Note ---
Date of Service August 26, 2024 Assessment & Plan (1) Encephalopathy: Plan: Ms. Wang is a 68-year-old female with past medical history significant for type 2 diabetes, hyperlipidemia, COPD, CAD status post CABG, heart failure with reduced ejection fraction, paroxysmal atrial fibrillation, peripheral artery disease status post femoral-popliteal bypass surgery, hypertension, mitral valve disease, B12 deficiency, osteoporosis, backache, migraines, iron deficiency anemia, tobacco use use disorder, anxiety, who lives at home with her and ambulates with a cane was brought in because of lethargy and altered mental status. Initial concern for oxycodone overdose, however, patient not responsive to narcan. Improving with steroids (on Decadron 2/2 reported benzyl alcohol allergy and patient cannot clarify) #Acute Metabolic Encephalopathy likely 2/2 hypercapnia likely multifactorial iso medications, COPD exacerbation and ?questionable UTI resume home meds as tolerated Delirium precautions tsh, b12, folate WNL #HAYDEN on CKD III IVF ongoing, will d/c when intake sufficient repeat BMP in am avoid nephrotoxic agents potentially prerenal iso relative hypotension Consult nephrology, Cr up to 3.62 repeat BMP #Acute hypoxic hypercapnic resp failure #Acute COPD #Current tobacco use #?opioid overdose: low suspicion as patient did not respond much to narcan and still lethargic CXR with atelectatic changes CTX and doxy continued procal negative Decadron 10mg daily (allergic to preservative in solumedrol) pulmicort and performist bid LAMA/LABA/ICS at this time nicotine patch stable V/Q scan r/o #NSTEMI II likely demand iso hypoxic CTM on tele, Cards following: conservative management at this time #HFmrEF 2/2 ischemic cardiomyopathy #PAF hold losartan continue BB continue eliquis Resume meds as able #Current hypotension #History hypertension hold antihypertensives, resume as appropriate encourage po as able #Chronic diarrhea Recent C. difficile colitis, positive gene not toxin Continue Vancomycin 125 daily for prophylaxis #Type 2 diabetes Not on meds A1C 6.1% #Peripheral artery disease On statin and Eliquis #Hyperlipidemia On statin #Chronic backache Will hold oxycodone and gabapentin for now #Iron deficiency anemia B12 deficiency Hemoglobin 11.4 today stable #Chronic leukocytosis likely iso chronic tobacco use peripheral smear ordered #Prolonged QTc will follow repeat EKG Avoid QT prolonging drugs #hx of hypokalemia and hypomagnesia 'will follow labs DVT prophylaxis On Elisharathis Disposition Telemetry Admission and Anticipated Discharge Date Admission Date: August 25, 2024 Subjective BRIJESH Reports feeling subjectively improved at this time However, renal function worsening--patient states she "doesn't pee alot at home" Denies any chest pain, palpitations or other acute concern Physical Exam Constitutional: WD/WN, vitals as above Respiratory: diminished bilaterally Cardiovascular: RRR, no murmur, no edema Results & Data Results & Data Vital Signs (Past 12 Hours) Vital Signs Temp Pulse Pulse Resp BP Pulse Ox O2 Del Method 08/26/24 12:35 36.7 C 76 20 123/74 97 High Flow Nasal Cannula 08/26/24 08:16 36.7 C 88 22 105/54 L 96 BiPAP 08/26/24 07:58 High Flow Nasal Cannula 08/26/24 07:09 82 19 96 08/26/24 07:09 82 20 96 BiPAP 08/26/24 03:24 82 08/26/24 02:56 82 22 96 08/26/24 02:27 36.7 C 85 18 113/64 99 BiPAP O2 Flow Rate FiO2 08/26/24 12:35 14 08/26/24 08:16 08/26/24 07:58 15 08/26/24 07:09 40 08/26/24 07:09 40 08/26/24 03:24 08/26/24 02:56 40 08/26/24 02:27 Laboratory Results Short CBC 08/26/24 Range/Units 08:10 WBC 15.27 H (4.8-10.8) K/ul Hgb 11.0 L (12.0-16.0) g/dl Hct 34.7 L (37.0-47.0) % Plt Count 179 (130-400) K/uL BMP 08/26/24 08:10 Sodium 137 Potassium 3.7 Chloride 107 Carbon Dioxide 22 BUN 30 H Creatinine 3.62 H D Glucose 124 H Calcium 7.4 L Urine 08/25/24 Range/Units 18:30 Urine Color Yellow Urine Appearance Cloudy A (Clear) Urine pH 6.0 (4.5-7.5) Ur Specific [place] 1.025 (1.000-1.030) Urine Protein 3+ H (Negative) Urine Glucose (UA) Negative (Negative) Medications Administered Home Medications Medication Instructions Recorded Confirmed Last Taken albuterol sulfate 90 mcg/actuation 2 inh inhalation Q4H PRN sob 08/25/24 08/25/24 Unknown aerosol inhaler apixaban 5 mg tablet (Eliquis) 5 mg PO BID 08/25/24 08/25/24 Unknown calcitonin (salmon) 200 1 spray intranasal DAILY 08/25/24 08/25/24 Unknown unit/actuation nasal spray fluticasone propionate 50 1 spray intranasal BID 08/25/24 08/25/24 Unknown mcg/actuation nasal spray,suspension gabapentin 800 mg tablet 800 mg PO TID 08/25/24 08/25/24 Unknown isosorbide mononitrate 30 mg 30 mg PO DAILY 08/25/24 08/25/24 Unknown tablet,extended release 24 hr loperamide 2 mg capsule 2 mg PO TID PRN Diarrhea 08/25/24 08/25/24 Unknown lorazepam 1 mg tablet 1 mg QID PRN Anxiety 08/25/24 08/25/24 Unknown losartan 50 mg tablet 100 mg PO DAILY 08/25/24 08/25/24 Unknown metoprolol succinate 50 mg 50 mg PO DAILY 08/25/24 08/25/24 Unknown tablet,extended release 24 hr omeprazole 40 mg capsule,delayed 40 mg PO DAILY 08/25/24 08/25/24 Unknown release oxycodone 5 mg tablet 5 mg PO Q4H PRN Pain 08/25/24 08/25/24 Unknown pravastatin 40 mg tablet 40 mg PO DAILY 08/25/24 08/25/24 Unknown trazodone 150 mg tablet 150 mg PO HS 08/25/24 08/25/24 Unknown Active Medications Generic Name Dose Route Start Last Admin Trade Name Freq PRN Reason Stop Dose Admin Albuterol 3 ml 08/25/24 13:45 08/26/24 06:53 Albut/Ipratrop 3mg/0.5mg Neb 3 Ml Vial NEB 09/24/24 13:44 3 ml Q6R MANDI Administration Protocol Apixaban 5 mg 08/25/24 09:00 08/26/24 08:13 Apixaban 5 Mg Tablet PO 09/24/24 08:59 5 mg BID MANDI Administration Budesonide 0.5 mg 08/25/24 19:00 08/26/24 07:00 Budesonide 0.5 Mg/2 Ml Vial (Pulmicort) NEB 09/24/24 18:59 0.5 mg BIDR MANDI Administration Calcitonin [place] 1 sprays 08/25/24 09:00 08/26/24 08:13 Calcitonin [place] Na 200 Iu/Ac 3.7 Ml Btl NA 09/24/24 08:59 1 sprays DAILY MANDI Administration Wise Syrup 5 ml 08/26/24 09:00 08/26/24 08:35 Wise Syrup 5 Ml Udp PO 09/05/24 08:59 5 ml DAILY MANDI Administration Dexamethasone Sodium Phosphate 10 mg 08/25/24 10:00 08/26/24 08:13 DexamethasonePf 10 Mg/Ml Vial IV 09/24/24 09:59 10 mg DAILY MANDI Administration Fluticasone Propionate 1 sprays 08/25/24 09:00 08/26/24 08:14 Fluticasone Propionate Na Spr 16 Gm Btl NA 09/24/24 08:59 1 sprays BID MANDI Administration Formoterol Fumarate 20 mcg 08/25/24 09:00 08/26/24 07:00 Formoterol 20 Mcg/2 Ml Vial NEB 09/24/24 08:59 20 mcg BIDR MANDI Administration Isosorbide Mononitrate 30 mg 08/25/24 09:00 08/25/24 08:20 Isosorbide [place] Extended Rel 30 Mg Tabcr PO 09/24/24 08:59 Not Given DAILY MANDI Lorazepam 0.5 mg 08/25/24 11:13 08/26/24 05:28 Lorazepam 0.5 Mg Tab PO 09/24/24 11:12 0.5 mg Q8H PRN Administration Anxiety Metoprolol Succinate 50 mg 08/25/24 09:00 08/26/24 08:13 Metoprolol Succ 50mg Ext Rel Tab PO 09/24/24 08:59 50 mg DAILY MANDI Administration Miscellaneous 1 each 08/26/24 08:59 08/26/24 08:12 Remove Nicoderm Patch N/A 09/25/24 08:58 1 each DAILY@0859 MANDI Administration Nicotine 1 patch 08/25/24 04:50 08/26/24 08:13 Nicotine 21 Mg/24 Hr Tdsy TD 09/24/24 04:49 1 patch QAM MANDI Administration Pantoprazole Sodium 40 mg 08/25/24 09:00 08/26/24 08:13 Pantoprazole 40 Mg Tab PO 09/24/24 08:59 40 mg DAILY MANDI Administration Pravastatin Sodium 40 mg 08/25/24 09:00 08/26/24 08:13 Pravastatin Sod 40 Mg Tab PO 09/24/24 08:59 40 mg DAILY MANDI Administration Umeclidinium/Vilanterol 1 puffs 08/25/24 09:00 08/26/24 08:13 Umeclidinium/Vilanterol 62.5/25mcg 7 Puffs/Inhaler INH 09/24/24 08:59 1 puffs DAILY MANDI Administration Vancomycin HCl 125 mg 08/26/24 09:00 08/26/24 08:34 Vancomycin Hcl 125 Mg/2.5ml Soln PO 09/05/24 08:59 125 mg DAILY MANDI Administration
--- NOTE | 2024-08-26 12:45 | Cardiology Progress Note ---
Date of Service August 26, 2024 Assessment & Plan (1) Altered mental status: (2) Encephalopathy: (3) Hypotension: (4) ASCVD (arteriosclerotic cardiovascular disease): (5) Elevated troponin: (6) NSTEMI (non-ST elevated myocardial infarction): (7) Ischemic cardiomyopathy: (8) Paroxysmal atrial fibrillation: (9) Current smoker: Plan 08/25/24 Markedly complex 68-year-old female admitted with lethargy and altered mental status. Cardiology consultation requested secondary to elevated troponin (51.0 -> 200.1 -> 234.5 pg/mL). EKG with new anterior T wave inversion, chronically abnormal laterally Resting echocardiography findings similar to prior, mild reduction in LV systolic function, EF 40 to 45%, prior posterior and lateral infarct. Patient without angina/chest pain. Recommendations: * Conservative medical management for the type II NSTEMI * Aspirin discontinued in 2021, when prescribed Eliquis anticoagulation * Continue beta-atif, statin, and long-acting nitrates. * Continue Eliquis anticoagulation for the PAF and PAD * Hold losartan secondary to hypotension * Patient with past poor tolerance to Jardiance * Tobacco cessation mandated 08/26/24: Patient more awake/alert today. HS troponin peaked and trended downwards. [phone], consistent with NSTEMI secondary to demand ischemia in setting of acute respiratory failure with hypoxia. Repeat EKG tomorrow AM. Patient is currently without anginal complaints. Echo with LVEF 40-45%, similar to past studies. Continue Eliquis 5 mg BID Continue metoprolol and isosorbide. Continue Statin ASA stopped several years ago upon initiation of Eliquis Losartan on hold due to hypotension and HAYDEN Creatinine trending higher this morning at 3.62 (was 1.3 yesterday). Continue to hold losartan. No need for diuretics. Appears euvolemic. VQ scan negative for PE. Continue antibiotics and supplemental O2. Case discussed with Dr. Ceja I spent a total of 45 minutes on the date of service in preparation, delivery, and documentation of the care provided to this patient, excluding any time spent in the performance of separately billed services. Kyleigh Sanders PA-C Department of Cardiology, [facility] This chart was completed in part utilizing Speech Voice Recognition Software. Grammatical errors, random word insertions, pronoun errors, and incomplete sentences are an occasional consequence of this system due to software limitations, ambient noise, and hardware issues. Any formal questions or concerns about the content, text, or information contained within the body of this dictation should be directly addressed to the provider for clarification. Admission and Anticipated Discharge Date Admission Date: August 25, 2024 Supervising Physician Co-Signing Physician Notes Attending attestation: Case reviewed with the advanced practitioner. I have personally performed a history and physical examination on the patient. I have reviewed the advanced practitioner's documentation on the date of service referenced in note, and I agree with, and take responsibility for the plan of care. Mars Ceja, DO Subjective Patient resting in bed comfortably this morning. More awake/alert compared to notes from yesterday. Answering questions appropriately. She reports her breathing has improved. Still requires high flow NC. She denies chest pain. No dizziness or lightheadedness. No LE edema. Minimal cough this morning. no fever or chills currently. Review of Systems Review of Systems: All systems reviewed & are unremarkable except as noted in HPI & below Physical Exam Constitutional: WD/WN, vitals as above average body habitus; no acute distress Neck: trachea midline, no thyromegaly normal visual inspection Respiratory: no respiratory distress Auscultation: + diminished lung sounds; no crackles, no rales and no wheezes Cardiovascular: Rate/Rhythm: regular rate and regular rhythm Heart Sounds: no murmur Vessels: no JVD Extremities: no edema Gastrointestinal (Abdomen): normal bowel sounds, soft, nontender, no hepatosplenomegaly Neurologic: PERRL, EOMI, accommodation nl, no face palsy, no dysarthria Results & Data Vital Signs (Past 12 Hours) Vital Signs Temp Pulse Pulse Resp BP Pulse Ox O2 Del Method 08/26/24 12:35 36.7 C 76 20 123/74 97 High Flow Nasal Cannula 08/26/24 08:16 36.7 C 88 22 105/54 L 96 BiPAP 08/26/24 07:58 High Flow Nasal Cannula 08/26/24 07:09 82 19 96 08/26/24 07:09 82 20 96 BiPAP 08/26/24 03:24 82 08/26/24 02:56 82 22 96 08/26/24 02:27 36.7 C 85 18 113/64 99 BiPAP O2 Flow Rate FiO2 08/26/24 12:35 14 08/26/24 08:16 08/26/24 07:58 15 08/26/24 07:09 40 08/26/24 07:09 40 08/26/24 03:24 08/26/24 02:56 40 08/26/24 02:27 Laboratory Results Cardiac Enzymes 08/25/24 Range/Units 15:45 Troponin I High Sens 144.9 H* D (0-14) pg/ml CBC 08/26/24 Range/Units 08:10 WBC 15.27 H (4.8-10.8) K/ul RBC 3.14 L (4.20-5.40) M/uL Hgb 11.0 L (12.0-16.0) g/dl Hct 34.7 L (37.0-47.0) % Plt Count 179 (130-400) K/uL Comprehensive Metabolic Panel 08/26/24 Range/Units 08:10 Sodium 137 (136-145) mmol/L Potassium 3.7 (3.5-5.1) mmol/L Chloride 107 (98-107) mmol/L Carbon Dioxide 22 (21-32) mmol/L BUN 30 H (6-23) mg/dl Creatinine 3.62 H D (0.6-1.2) mg/dl Glucose 124 H (70-99(Fasting)) mg/dl Calcium 7.4 L (8.6-10.3) mg/dl Intake and Output 08/25/24 08/26/24 08/26/24 22:59 06:59 14:59 Intake Total 1200 / 1450 100 / 1450 100 / 100 Balance 1200 / 1450 100 / 1450 100 / 100 Intake: IV 1100 / 1350 100 / 1350 100 / 100 Piperacillin/Tazobactam 4.5 gm 100 / 200 100 / 200 100 / 100 In 100 ml @ 25 mls/hr IV Q8H MANDI Rx#:[id number] Sodium Chloride 0.9% 1,000 ml @ 1000 / 1000 125 mls/hr IV .Q8H MANDI Rx#: [id number] Oral 100 / 100 Diagnostic Findings Telemetry reviewed: NSR. Occ PAC/PVC's. No concerning arrhythmias Pulm Perfusion scan report reviewed from 08/26: FINDINGS/IMPRESSION: Homogeneous perfusion was seen bilaterally. Low probability of pulmonary embolism. Echo report reviewed from 08/25/24: Mild concentric LVH. Moderate size posterior lateral wall motion abnormality with akinesis of the segments. Left ventricular systolic function is mildly reduced. Left ventricular ejection fraction 40 to 45%. Mildly dilated right ventricle. RV systolic function reduced by TAPSE. Mildly dilated left atrium. Mildly dilated right atrium. Interatrial septum bows towards left atrium consistent with elevated right atrial pressure. Moderate to severe tricuspid regurgitation. Pulmonary artery systolic pressure estimated to be 34 mmHg (normal). Compared to images obtained at time of prior study of June 17, 2022, the LV wall motion and LVEF are relatively unchanged. The RV is better visualized on the present study. Medications Administered Current Inpatient Medications Albuterol (Albuterol Hfa 8 Gm Inhaler) 2 puffs INH Q4H PRN PRN Reason: sob Stop: 09/24/24 04:11 Albuterol (Albut/Ipratrop 3mg/0.5mg Neb 3 Ml Vial) 3 ml NEB Q6R [facility]; Protocol Stop: 09/24/24 13:44 Last Admin: 08/26/24 06:53 Dose: 3 ml Apixaban (Apixaban 5 Mg Tablet) 5 mg PO BID [facility] Stop: 09/24/24 08:59 Last Admin: 08/26/24 08:13 Dose: 5 mg Budesonide (Budesonide 0.5 Mg/2 Ml Vial (Pulmicort)) 0.5 mg NEB BIDR [facility] Stop: 09/24/24 18:59 Last Admin: 08/26/24 07:00 Dose: 0.5 mg Calcitonin [place] (Calcitonin [place] Na 200 Iu/Ac 3.7 Ml Btl) 1 sprays NA DAILY [facility] Stop: 09/24/24 08:59 Last Admin: 08/26/24 08:13 Dose: 1 sprays Wise Syrup (Wise Syrup 5 Ml Udp) 5 ml PO DAILY [facility] Stop: 09/05/24 08:59 Last Admin: 08/26/24 08:35 Dose: 5 ml Dexamethasone Sodium Phosphate (DexamethasonePf 10 Mg/Ml Vial) 10 mg IV DAILY [facility] Stop: 09/24/24 09:59 Last Admin: 08/26/24 08:13 Dose: 10 mg Fluticasone Propionate (Fluticasone Propionate Na Spr 16 Gm Btl) 1 sprays NA BID [facility] Stop: 09/24/24 08:59 Last Admin: 08/26/24 08:14 Dose: 1 sprays Formoterol Fumarate (Formoterol 20 Mcg/2 Ml Vial) 20 mcg NEB BIDR [facility] Stop: 09/24/24 08:59 Last Admin: 08/26/24 07:00 Dose: 20 mcg Piperacillin Sod/Tazobactam Sod (Zosyn) 4.5 gm in 100 mls @ 25 mls/hr IV Q12H [facility]; Protocol Stop: 08/30/24 13:59 Isosorbide Mononitrate (Isosorbide [place] Extended Rel 30 Mg Tabcr) 30 mg PO DAILY [facility] Stop: 09/24/24 08:59 Last Admin: 08/25/24 08:20 Dose: Not Given Levalbuterol HCl (Levalbuterol 1.25 Mg/3 Ml Neb) 1.25 mg NEB Q4H PRN PRN Reason: Shortness Of Breath Or Wheezing Stop: 09/24/24 07:09 Lorazepam (Lorazepam 0.5 Mg Tab) 0.5 mg PO Q8H PRN PRN Reason: Anxiety Stop: 09/24/24 11:12 Last Admin: 08/26/24 05:28 Dose: 0.5 mg Metoprolol Succinate (Metoprolol Succ 50mg Ext Rel Tab) 50 mg PO DAILY [facility] Stop: 09/24/24 08:59 Last Admin: 08/26/24 08:13 Dose: 50 mg Miscellaneous (Remove Nicoderm Patch) 1 each N/A DAILY@0859 [facility] Stop: 09/25/24 08:58 Last Admin: 08/26/24 08:12 Dose: 1 each Nicotine (Nicotine 21 Mg/24 Hr Tdsy) 1 patch TD QAM [facility] Stop: 09/24/24 04:49 Last Admin: 08/26/24 08:13 Dose: 1 patch Pantoprazole Sodium (Pantoprazole 40 Mg Tab) 40 mg PO DAILY [facility] Stop: 09/24/24 08:59 Last Admin: 08/26/24 08:13 Dose: 40 mg Pravastatin Sodium (Pravastatin Sod 40 Mg Tab) 40 mg PO DAILY [facility] Stop: 09/24/24 08:59 Last Admin: 08/26/24 08:13 Dose: 40 mg Umeclidinium/Vilanterol (Umeclidinium/Vilanterol 62.5/25mcg 7 Puffs/Inhaler) 1 puffs INH DAILY [facility] Stop: 09/24/24 08:59 Last Admin: 08/26/24 08:13 Dose: 1 puffs Vancomycin HCl (Vancomycin Hcl 125 Mg/2.5ml Soln) 125 mg PO DAILY [facility] Stop: 09/05/24 08:59 Last Admin: 08/26/24 08:34 Dose: 125 mg
[2024-08-26] MEDS: PIPERACILLIN/TAZOBACTAM 4.5 GM/100 ML BAG IV SCH (18:17)
[2024-08-27] MEDS: ACETAMINOPHEN 325 MG TAB PO STA (05:27)
[2024-08-27 06:24] LABS: Hematocrit (blood only) 33.7 % (37.0-47.0); Hemoglobin 10.7 g/dl (12.0-16.0); Mean Corpuscular Hemoglobin 34.1 pg (25.0-34.0); Mean Corpuscular Hgb Conc 31.8 g/dL (32.0-36.0); Mean Corpuscular Volume 107.3 fL (80.0-100.0); Mean Platelet Volume 10.6 fL (9.4-12.4); Platelet Count 178 K/uL (130-400); RDW Coefficient of Variation 13.6 % (11.5-14.5); RDW Standard Deviation 54.5 fL (36.4-46.3); Red Blood Count 3.14 M/uL (4.20-5.40); White Blood Count 13.23 K/ul (4.8-10.8)
[2024-08-27 06:41] LABS: Calcium 7.8 mg/dl (8.6-10.3); Creatinine Clr Calc Pharmacy 12.7 ml/min; Magnesium 1.9 mg/dl (1.7-2.4); Phosphorus 4.3 mg/dl (2.5-4.9); Potassium 3.5 mmol/L (3.5-5.1)
--- NOTE | 2024-08-27 09:28 | Cardiology Progress Note ---
Date of Service August 27, 2024 Assessment & Plan (1) Altered mental status: (2) Encephalopathy: (3) Hypotension: (4) ASCVD (arteriosclerotic cardiovascular disease): (5) Elevated troponin: (6) NSTEMI (non-ST elevated myocardial infarction): (7) Ischemic cardiomyopathy: (8) Paroxysmal atrial fibrillation: (9) Current smoker: Plan 08/25/24 Markedly complex 68-year-old female admitted with lethargy and altered mental status. Cardiology consultation requested secondary to elevated troponin (51.0 -> 200.1 -> 234.5 pg/mL). EKG with new anterior T wave inversion, chronically abnormal laterally Resting echocardiography findings similar to prior, mild reduction in LV systolic function, EF 40 to 45%, prior posterior and lateral infarct. Patient without angina/chest pain. Recommendations: * Conservative medical management for the type II NSTEMI * Aspirin discontinued in 2021, when prescribed Eliquis anticoagulation * Continue beta-atif, statin, and long-acting nitrates. * Continue Eliquis anticoagulation for the PAF and PAD * Hold losartan secondary to hypotension * Patient with past poor tolerance to Jardiance * Tobacco cessation mandated 08/26/24: Patient more awake/alert today. HS troponin peaked and trended downwards. [phone], consistent with NSTEMI secondary to demand ischemia in setting of acute respiratory failure with hypoxia. Repeat EKG tomorrow AM. Patient is currently without anginal complaints. Echo with LVEF 40-45%, similar to past studies. Continue Eliquis 5 mg BID Continue metoprolol and isosorbide. Continue Statin ASA stopped several years ago upon initiation of Eliquis Losartan on hold due to hypotension and HAYDEN Creatinine trending higher this morning at 3.62 (was 1.3 yesterday). Continue to hold losartan. No need for diuretics. Appears euvolemic. VQ scan negative for PE. Continue antibiotics and supplemental O2. 08/27/24: Improving oxygen status this morning. requiring less supplemental O2. Continue antibiotics. Repeat chest xray - mild crackles on exam. Weight trending upward. + fluid balance. She is high risk for CHF exacerbation. May need IV lasix, but given sudden rise in creatinine will try to avoid. Creatinine 3.7 today (3.6 yesterday). Was 1.3 on admission. Patient reports poor urine output is chronic for her. Hold Losartan. BP trending higher. PVC's on telemetry. Increase metoprolol to 50 mg in AM (home dose). Add 25 mg in PM. Supplement potassium 20 meq today and magnesium 400 to keep potassium 4.0-5.0 and magnesium > 2.0. No anginal complaints. continued GDMT for CAD/CHF including ASA, statin, metoprolol, isosorbide. Did not tolerated Jardiance. will not start spironolactone given elevated creatinine. Case discussed with Dr. Ceja I spent a total of 45 minutes on the date of service in preparation, delivery, and documentation of the care provided to this patient, excluding any time spent in the performance of separately billed services. Kyleigh Sanders PA-C Department of Cardiology, [facility] This chart was completed in part utilizing Speech Voice Recognition Software. Grammatical errors, random word insertions, pronoun errors, and incomplete sentences are an occasional consequence of this system due to software limitations, ambient noise, and hardware issues. Any formal questions or concerns about the content, text, or information contained within the body of this dictation should be directly addressed to the provider for clarification. Admission and Anticipated Discharge Date Admission Date: August 25, 2024 Supervising Physician Co-Signing Physician Notes Attending attestation: Case reviewed with the advanced practitioner. I have personally performed a history and physical examination on the patient. I have reviewed the advanced practitioner's documentation on the date of service referenced in note, and I agree with, and take responsibility for the plan of care. Patient alert and awake. She notes no recent definite chest discomfort before her hospital stay, but does note chronic shortness of breath. Is difficult to distinguish if her symptoms were of cardiac origin because she also has underlying lung disease and is a 1 pack/day smoker. Telemetry revealed a 6 beat run of nonsustained ventricular tachycardia observed on 08/26/2024 at 2219 as well as occasional PVCs. EKG performed today 08/27/2024 and interpreted independently revealed sinus rhythm at 75 bpm with 1 noted PVC, and ongoing T wave inversions in the anterior precordial leads. Chest x-ray performed today revealed moderate right and small left pleural effusions. Nephrology input noted and appreciated. Continue to monitor without IV fluids or furosemide with thoughts that acute renal failure is present due to acute tubular necrosis in the setting of hypoxia and hypotension which have since resolved. Continue metoprolol given PVCs and nonsustained VT. Dose of metoprolol succinate increased to 50 mg a.m., 25 mg p.m. Optimize electrolytes. Mars Ceja DO Subjective Patient resting in bed. SOB improving but not yet baseline. Ongoing cough noted. Oxygen requirements improving each day. No chest pain. No edema. Review of Systems Review of Systems: All systems reviewed & are unremarkable except as noted in HPI & below Physical Exam Constitutional: WD/WN, vitals as above average body habitus; no acute distress Neck: trachea midline, no thyromegaly normal visual inspection Respiratory: no respiratory distress Auscultation: + diminished lung sounds and + crackles; no rales and no wheezes Cardiovascular: Rate/Rhythm: regular rate and regular rhythm Heart Sounds: no murmur Vessels: no JVD Extremities: no edema Gastrointestinal (Abdomen): normal bowel sounds, soft, nontender, no hepatosplenomegaly Neurologic: PERRL, EOMI, accommodation nl, no face palsy, no dysarthria Results & Data Vital Signs (Past 12 Hours) Vital Signs Temp Pulse Pulse Resp BP BP Pulse Ox 08/27/24 07:35 82 08/27/24 07:33 36.4 C L 80 21 152/80 H 96 08/27/24 07:27 80 17 92 08/27/24 04:42 94 H 17 96 08/27/24 03:44 36.6 C 75 16 139/72 96 08/27/24 01:11 76 18 97 08/26/24 23:24 36.7 C 74 16 128/74 96 08/26/24 23:21 75 17 98 O2 Del Method O2 Flow Rate FiO2 08/27/24 07:35 08/27/24 07:33 Nasal Cannula 2 08/27/24 07:27 Nasal Cannula 2 08/27/24 04:42 40 08/27/24 03:44 BiPAP 08/27/24 01:11 BiPAP 40 08/26/24 23:24 Nasal Cannula 5 08/26/24 23:21 40 Laboratory Results CBC 08/27/24 Range/Units 06:02 WBC 13.23 H (4.8-10.8) K/ul RBC 3.14 L (4.20-5.40) M/uL Hgb 10.7 L (12.0-16.0) g/dl Hct 33.7 L (37.0-47.0) % Plt Count 178 (130-400) K/uL Comprehensive Metabolic Panel 08/26/24 08/27/24 Range/Units 08:10 06:02 Sodium 141 (136-145) mmol/L Potassium 3.5 (3.5-5.1) mmol/L Chloride 110 H (98-107) mmol/L Carbon Dioxide 21 (21-32) mmol/L BUN 34 H (6-23) mg/dl Creatinine 3.62 H D 3.78 H (0.6-1.2) mg/dl Glucose 101 H (70-99(Fasting)) mg/dl Calcium 7.8 L (8.6-10.3) mg/dl Intake and Output 08/26/24 08/27/24 08/27/24 22:59 06:59 14:59 Intake Total 220 / 900 100 / 900 Output Total 300 / 850 Balance 220 / 50 -200 / 50 Intake: IV 100 / 200 Piperacillin/Tazobactam 4.5 gm 100 / 100 In 100 ml @ 25 mls/hr IV Q12H [facility] Rx#:[id number] Oral 120 / 700 100 / 700 Output: Urine Amount (Catheter) 300 / 850 Vazquez/Indwelling 300 / 850 Other: Weight 67.6 kg Diagnostic Findings Telemetry reviewed: NSR with frequent PVC's. Increased PVC burden overnight and this morning. She had 6 beat run of non sustained VT at 22:19 last night. EKG this morning reviewed: NSR with PVC's Anterior and Lateral T wave inversions noted. Possible LVH with repolarization QT improving. Medications Administered Current Inpatient Medications Albuterol (Albuterol Hfa 8 Gm Inhaler) 2 puffs INH Q4H PRN PRN Reason: sob Stop: 09/24/24 04:11 Albuterol (Albut/Ipratrop 3mg/0.5mg Neb 3 Ml Vial) 3 ml NEB Q6R [facility]; Protocol Stop: 09/24/24 13:44 Last Admin: 08/27/24 07:27 Dose: Not Given Apixaban (Apixaban 5 Mg Tablet) 5 mg PO BID [facility] Stop: 09/24/24 08:59 Last Admin: 08/27/24 08:03 Dose: 5 mg Budesonide (Budesonide 0.5 Mg/2 Ml Vial (Pulmicort)) 0.5 mg NEB BIDR [facility] Stop: 09/24/24 18:59 Last Admin: 08/27/24 07:27 Dose: 0.5 mg Calcitonin [place] (Calcitonin [place] Na 200 Iu/Ac 3.7 Ml Btl) 1 sprays NA DAILY [facility] Stop: 09/24/24 08:59 Last Admin: 08/27/24 08:03 Dose: 1 sprays Wise Syrup (Wise Syrup 5 Ml Udp) 5 ml PO DAILY [facility] Stop: 09/05/24 08:59 Last Admin: 08/27/24 08:03 Dose: 5 ml Dexamethasone Sodium Phosphate (DexamethasonePf 10 Mg/Ml Vial) 10 mg IV DAILY [facility] Stop: 09/24/24 09:59 Last Admin: 08/27/24 08:03 Dose: 10 mg Fluticasone Propionate (Fluticasone Propionate Na Spr 16 Gm Btl) 1 sprays NA BID [facility] Stop: 09/24/24 08:59 Last Admin: 08/27/24 08:03 Dose: 1 sprays Formoterol Fumarate (Formoterol 20 Mcg/2 Ml Vial) 20 mcg NEB BIDR [facility] Stop: 09/24/24 08:59 Last Admin: 08/27/24 07:27 Dose: 20 mcg Piperacillin Sod/Tazobactam Sod (Zosyn) 4.5 gm in 100 mls @ 25 mls/hr IV Q12H [facility]; Protocol Stop: 08/30/24 13:59 Last Admin: 08/27/24 05:48 Dose: 25 mls/hr Isosorbide Mononitrate (Isosorbide Cherry Extended Rel 30 Mg Tabcr) 30 mg PO DAILY [facility] Stop: 09/24/24 08:59 Last Admin: 08/25/24 08:20 Dose: Not Given Lactobacillus Acidophilus (Advanced Probiotic 625 Mg Capsule) 1,250 mg PO DAILY [facility] Stop: 09/26/24 08:59 Levalbuterol HCl (Levalbuterol 1.25 Mg/3 Ml Neb) 1.25 mg NEB Q4H PRN PRN Reason: Shortness Of Breath Or Wheezing Stop: 09/24/24 07:09 Lorazepam (Lorazepam 0.5 Mg Tab) 0.5 mg PO Q8H PRN PRN Reason: Anxiety Stop: 09/24/24 11:12 Last Admin: 08/27/24 03:19 Dose: 0.5 mg Metoprolol Succinate (Metoprolol Succ 50mg Ext Rel Tab) 50 mg PO DAILY [facility] Stop: 09/24/24 08:59 Last Admin: 08/27/24 08:03 Dose: 50 mg Miscellaneous (Remove Nicoderm Patch) 1 each N/A DAILY@0859 [facility] Stop: 09/25/24 08:58 Last Admin: 08/27/24 08:03 Dose: 1 each Nicotine (Nicotine 21 Mg/24 Hr Tdsy) 1 patch TD QAM [facility] Stop: 09/24/24 04:49 Last Admin: 08/27/24 08:02 Dose: 1 patch Pantoprazole Sodium (Pantoprazole 40 Mg Tab) 40 mg PO DAILY [facility] Stop: 09/24/24 08:59 Last Admin: 08/27/24 08:03 Dose: 40 mg Pravastatin Sodium (Pravastatin Sod 40 Mg Tab) 40 mg PO DAILY [facility] Stop: 09/24/24 08:59 Last Admin: 08/27/24 08:02 Dose: 40 mg Umeclidinium/Vilanterol (Umeclidinium/Vilanterol 62.5/25mcg 7 Puffs/Inhaler) 1 puffs INH DAILY [facility] Stop: 09/24/24 08:59 Last Admin: 08/27/24 08:03 Dose: 1 puffs Vancomycin HCl (Vancomycin Hcl 125 Mg/2.5ml Soln) 125 mg PO DAILY [facility] Stop: 09/05/24 08:59 Last Admin: 08/27/24 08:09 Dose: 125 mg
[2024-08-27] MEDS: ADVANCED PROBIOTIC 625 MG CAPSULE PO SCH (09:45)
--- NOTE | 2024-08-27 10:09 | XRay Report ---
XR chest 1V portable CLINICAL HISTORY: increased crackles on exam; still requiring O2 TECHNIQUE: Single frontal radiograph of the chest was obtained. Comparison: Comparison is made to chest radiograph 08/24/2024 FINDINGS: Median sternotomy wires are unchanged. Cardiomegaly is noted. The aortic arch is calcified. Moderate right and small left pleural effusions. There is associated atelectasis but otherwise no definite con solidation. IMPRESSION: Cardiomegaly and moderate right and small left pleural effusions. ACT 112: Negative or not required by law. Electronically signed by: Lit Leyva M.D. 08/27/2024 10:07 AM
[2024-08-27] MEDS: POTASSIUM CHLORIDE CRTAB 20 MEQ TABCR PO ONE (10:15)
[2024-08-27] MEDS: MAGNESIUM OXIDE 400 MG TAB PO SCH (10:15)
--- NOTE | 2024-08-27 10:38 | Nephrology Consultation ---
Date of Consultation August 27, 2024 Assessment & Plan (1) HAYDEN (acute kidney injury): HAYDEN from ATN which happened because of Severe Hypotension and Hypoxia that happened on 08/24/2024. Creat went from 0.96 on Adx to 3.78 in 3 days. Given her extensive cardiac Dz as well as lung Disease and PVD she is very prone to develop ATN with Severe Hypotension and Hypoxia Currently making urine. We do need Renal US at least to r/o Obstruction but unlikely so. Now vital signs are good so may start getting better. Creat did not go up very fast from yesterday to today--good sign. Do need to Check CK also to rule out Acute rhabdo. repeat UA also. Discussed and updated about the situation of HAYDEN. Hopefully no dialysis needed but cannot be 100% sure now. Will know more based on renal trend tomorrow. disccused this in great detail. she is agreeable to dialysis if needed No edema but has b/l Crackles and Pl eff so will not give IVF. hold off on lasix if possible (2) Encephalopathy: Likely from Polypharmacy mainly Opioids. Plan time spent 61 mins History of Present Illness Reason for Consultation: HAYDEN Attending Physician: Efra Worthy MD History of Present Illness 68/F admitted 2 days ago with creat of 0.96. She has type 2 diabetes, hyperlipid emia, COPD, CAD status post CABG, heart failure with reduced ejection fraction, paroxysmal atrial fibrillation, peripheral artery disease status post femoral- popliteal bypass surgery, hypertension, mitral valve disease, tobacco use use disorder who lives at home with her and ambulates with a cane was brought in because of lethargy and altered mental status. She was hypotensive and hypoxic on admission. Patient recently started oxycodone for back pain.EMS was called. After Narcan in the field by EMS patient became more responsive. Currently patient denies any headache. No blurred vision. No runny nose or sore throat. Has mild chronic cough. Denies any difficulty swallowing. Denies any chest pain or shortness of breath. Currently no nausea. No abdominal pain. Patient states she has chronic diarrhea for many years and has 5-7 bowel movements a day. Recently was treated for C. difficile colitis. Recent last admission because of hypotension BP meds were held except beta-aitf. She followed up with the PCP. Losartan 50 mg were restarted but Aldactone was held because of ongoing diarrhea and metoprolol and Imdur were continued. At home her blood pressure was running high in 200s and PCP was notified and and as per epic notes was advised to increase losartan to 100 mg and restart spironolactone 50 mg daily. patiuent not really clear about her meds. Since being admitted Creat has gone up vert fast within few days from 0.96 to current level of 3.78. She became quite hypoxic at times on 08/24 needing 15 liters o2 and even now is on 5 liters [place]. Making urine. ROS--see HPI. unless stated otherwise 12 systems negative Physical Exam Physical Exam: General- Not in acute distress Head- atraumatic Eyes- PERRL. ENT- oropharynx clear Neck- supple, no JVD. Lungs- Decreased BS b/l with Crackles Heart- regular rhythm; no murmur, no gallop. Abdomen- normal bowel sounds, soft, nontender, no distension. Extremities- no pretibial edema, no erythema seen. Neuro- alert, oriented x 3; PERRL, no facial palsy; no dysarthria; obeys commands,moves extremities. Allergies Allergy/AdvReac Type Severity Reaction Status Date / Time benzyl alcohol Allergy Severe Anaphylaxis Verified 08/15/23 05:44 Iodinated Contrast Media Allergy Severe Rash - IVP Verified 08/15/23 05:44 dye lisinopril Allergy Severe chills,sera Verified 08/15/23 05:44 rs prochlorperazine Allergy Severe Anaphylaxis Verified 08/15/23 05:44 saccharin Allergy Severe Anaphylaxis Verified 08/15/23 05:44 simvastatin Allergy Intermediate itching Verified 08/15/23 05:44 furosemide Allergy Mild rash Verified 08/15/23 05:44 promethazine Allergy Mild rash Verified 08/15/23 05:44 Home Medications Medication Instructions Recorded Confirmed Type albuterol sulfate 90 mcg/actuation 2 inh inhalation Q4H PRN sob 08/25/24 08/25/24 History aerosol inhaler apixaban 5 mg tablet (Eliquis) 5 mg PO BID 08/25/24 08/25/24 History calcitonin (salmon) 200 1 spray intranasal DAILY 08/25/24 08/25/24 History unit/actuation nasal spray fluticasone propionate 50 1 spray intranasal BID 08/25/24 08/25/24 History mcg/actuation nasal spray,suspension gabapentin 800 mg tablet 800 mg PO TID 08/25/24 08/25/24 History isosorbide mononitrate 30 mg 30 mg PO DAILY 08/25/24 08/25/24 History tablet,extended release 24 hr loperamide 2 mg capsule 2 mg PO TID PRN Diarrhea 08/25/24 08/25/24 History lorazepam 1 mg tablet 1 mg QID PRN Anxiety 08/25/24 08/25/24 History losartan 50 mg tablet 100 mg PO DAILY 08/25/24 08/25/24 History metoprolol succinate 50 mg 50 mg PO DAILY 08/25/24 08/25/24 History tablet,extended release 24 hr omeprazole 40 mg capsule,delayed 40 mg PO DAILY 08/25/24 08/25/24 History release oxycodone 5 mg tablet 5 mg PO Q4H PRN Pain 08/25/24 08/25/24 History pravastatin 40 mg tablet 40 mg PO DAILY 08/25/24 08/25/24 History trazodone 150 mg tablet 150 mg PO HS 08/25/24 08/25/24 History Patient History Medical History CHF (congestive heart failure) EF 40-45% per 09/2022 ECHO Closed fracture of left proximal humerus Ileus, postoperative Postoperative fever Acute blood loss as cause of postoperative anemia Atrial fibrillation On Eliquis Ischemic cardiomyopathy History of panic attacks worse with large groups History of stomach ulcers 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 Andry follows with Dr Borja ([place]) Family history of reaction to anesthesia DAUGHTER>SLOW TO WAKE UP History of esophagogastroduodenoscopy (EGD) History of colonoscopy H/O abdominal surgery 25-30 YEARS AGO>PART OF STOMACH/COLON/PANCREAS REMOVED D/T STOMACH ULCER History of tooth extraction History of cataract surgery RT/LEFT History of cardiac cath MULTIPLE CATH'S DONE>NO SENTS ([facility]) most recently done in the last five years (9592-4093) done at [facility]. no stents. History of total hysterectomy History of cholecystectomy History of appendectomy Family History Daughter Family hx of colon cancer Family history of diabetes mellitus FHx: thyroid cancer Sister Family history of diabetes mellitus Brother FHx: kidney cancer Family history of diabetes mellitus FHx: pancreatic cancer Social History Smoking Status: Current every day smoker Tobacco Type: Cigarettes Cigarettes Per Day: 1 pack per day since the age of 9; Second Hand Exposure: Yes; Do You Dip or Chew Tobacco: No; Preferred Language: Romansh Communication Ability: Effective Molecular Biology Director Required: No Beliefs That Will Affect Care: None Current Living Situation: Spouse Current Living Situation Comment: 2 story home, only lives on 1 floor Other Information That Helps Us Care for You: No Feels Safe at Home: Yes Safety Concerns: Feels Safe At This Time Assistive Devices: None Results & Data Vital Signs (Past 12 Hours) Vital Signs Temp Pulse Pulse Resp BP BP Pulse Ox 08/27/24 08:03 08/27/24 07:35 82 08/27/24 07:33 36.4 C L 80 21 152/80 H 96 08/27/24 07:27 80 17 92 08/27/24 04:42 94 H 17 96 08/27/24 03:44 36.6 C 75 16 139/72 96 08/27/24 01:11 76 18 97 08/26/24 23:24 36.7 C 74 16 128/74 96 08/26/24 23:21 75 17 98 O2 Del Method O2 Flow Rate FiO2 08/27/24 08:03 Nasal Cannula 5 08/27/24 07:35 08/27/24 07:33 Nasal Cannula 2 08/27/24 07:27 Nasal Cannula 2 08/27/24 04:42 40 08/27/24 03:44 BiPAP 08/27/24 01:11 BiPAP 40 08/26/24 23:24 Nasal Cannula 5 08/26/24 23:21 40 Laboratory Results reviewed CBC, renal Panel Urine tests, CXR. Diagnostic Findings CXR--Pl eff
[2024-08-27 11:17] LABS: Codeine Urine NEGATIVE ng/mL (<50); Hydrocodone Urine NEGATIVE ng/mL (<50); Hydromor Urine NEGATIVE ng/mL (<50); Morphine Urine NEGATIVE ng/mL (<50); Norhydrocodone Conf Ur NEGATIVE ng/mL (<50); Noroxycodone Urine 5610 ng/mL (<50); Oxycodone Urine 837 ng/mL (<50); Oxymorph Urine 396 ng/mL (<50)
--- NOTE | 2024-08-27 12:32 | Ultrasound Report ---
US renal/blad retro comp CLINICAL HISTORY: HAYDEN TECHNIQUE: Multiple sonographic real-time images of the kidneys and bladder were obtained. COMPARISON: Comparison is made to CT abdomen pelvis 08/01/2024 FINDINGS: The right kidney measures 11.7 cm in length, and the left kidney measures 12.1 cm in length. The right kidney is normal in size, contour, cortical thickness, and echogenicity. No hydronephrosis is identified. No renal lesion is identified. The left kidney is normal in size, contour, cortical thickness and echogenicity. No hydronephrosis i s identified. No renal lesion is identified. A Vazquez catheter is seen in the collapsed bladder. No large intraluminal mass is seen. IMPRESSION: Unremarkable examination and in particular no evidence of hydronephrosis. ACT 112: Negative or not required by law. Electronically signed by: Lit Leyva M.D. 08/27/2024 12:31 PM
[2024-08-27 13:12] LABS: Appearance Urine Clear (Clear); Bacteria Urine Automated None Seen (None Seen); Bilirubin Urine Negative (Negative); Blood Urine Trace (Negative); Color Urine Yellow; Epithelial Cell Urine Auto 0-2 /hpf (0-2); Glucose Urine UA Negative (Negative); Ketones Urine Negative (Negative); Leukocyte Esterase Urine Negative (Negative); Nitrite Urine Negative (Negative); Protein Urine 1+ (Negative); Specific Gravity Urine 1.016 (1.000-1.030); Urobilinogen Urine Negative (Negative); WBC Urine Automated 0-5 /hpf (0-5)
[2024-08-27 15:24] LABS: Albumin Level 2.7 gm/dl (3.4-5.0); BUN Creatinine Ratio 9.4 (10-20); Creatinine Clr Calc Pharmacy 13.6 ml/min; Phosphorus 3.8 mg/dl (2.5-4.9); Potassium 3.7 mmol/L (3.5-5.1)
--- NOTE | 2024-08-27 16:03 | Hospitalist Progress Note ---
Date of Service August 27, 2024 Assessment & Plan (1) Encephalopathy: Plan: per Dr. Zurita' notes with addendum: Ms. Wang is a 68-year-old female with past medical history significant for type 2 diabetes, hyperlipidemia, COPD, CAD status post CABG, heart failure with reduced ejection fraction, paroxysmal atrial fibrillation, peripheral artery disease status post femoral-popliteal bypass surgery, hypertension, mitral valve disease, B12 deficiency, osteoporosis, backache, migraines, iron deficiency anemia, tobacco use use disorder, anxiety, who lives at home with her and ambulates with a cane was brought in because of lethargy and altered mental status. Initial concern for oxycodone overdose, however, patient not responsive to narcan. Improving with steroids (on Decadron 2/2 reported benzyl alcohol allergy and patient cannot clarify) #Acute Metabolic Encephalopathy likely 2/2 hypercapnia likely multifactorial iso medications, COPD exacerbation and ?questionable UTI resume home meds as tolerated Delirium precautions tsh, b12, folate WNL 08/27 Resolving #HAYDEN on CKD III IVF ongoing, will d/c when intake sufficient repeat BMP in am avoid nephrotoxic agents potentially prerenal iso relative hypotension Consult nephrology, Cr up to 3.62 repeat BMP 08/27 Creatinine 3.7--3.5 Nephrology service consulted Continue to monitor #Acute hypoxic hypercapnic resp failure #Acute COPD #Current tobacco use #?opioid overdose: low suspicion as patient did not respond much to narcan and still lethargic CXR with atelectatic changes CTX and doxy continued procal negative Decadron 10mg daily (allergic to preservative in solumedrol) pulmicort and performist bid LAMA/LABA/ICS at this time nicotine patch stable V/Q scan: no PE 08/27 Currently on 3 L of O2 via nasal cannula Continue with Zosyn, Decadron, Pulmicort, Perforomist, Anoro Ellipta Vancomycin p.o. for C. difficile prophylaxis #NSTEMI II likely demand iso hypoxic CTM on tele, Cards following: conservative management at this time #HFmrEF 2/2 ischemic cardiomyopathy #PAF hold losartan continue BB continue eliquis Resume meds as able #Current hypotension #History hypertension hold antihypertensives, resume as appropriate encourage po as able 08/27 Blood pressure elevated Resume Imdur 30 mg daily #Chronic diarrhea Recent C. difficile colitis, positive gene not toxin Continue Vancomycin 125 daily for prophylaxis #Type 2 diabetes Not on meds A1C 6.1% #Peripheral artery disease On statin and Eliquis #Hyperlipidemia On statin #Chronic backache Will hold oxycodone and gabapentin for now #Iron deficiency anemia B12 deficiency Hemoglobin 11.4 today stable #Chronic leukocytosis likely iso chronic tobacco use peripheral smear ordered #Prolonged QTc will follow repeat EKG Avoid QT prolonging drugs QT 523--> 506 Monitor closely #hx of hypokalemia and hypomagnesia -- will follow labs DVT prophylaxis On Eliquis Disposition Telemetry Admission and Anticipated Discharge Date Admission Date: August 25, 2024 Subjective Follow-up for sleep exacerbation, pneumonia, acute renal failure, acute metabolic encephalopathy, etc. Seen resting in bed, sleeping but easily awakened States she feels improved compared to yesterday Breathing is better, less coughing, with yellow sputum No chest pain, palpitations, dizziness Answered all questions appropriately No other new symptoms Review of Systems Review of Systems: all noted and negative except for above Physical Exam Physical Exam: General- oriented x 3, not in distress, speaks in sentences with no effort or accessory muscle use Eyes- anicteric Neck- no JVD Lungs- Mild crackles bilateral bases, no wheezing Heart- normal rate, regular rhythm; no murmurs Abdomen- normal bowel sounds, nondistended, soft, nontender Extremities- no pretibial edema, no calf tenderness Neuro- alert, oriented x 3; no gross focal neurologic deficits Skin- warm & dry Results & Data Results & Data Vital Signs (Past 12 Hours) Vital Signs Temp Pulse Pulse Resp BP Pulse Ox O2 Del Method 08/27/24 14:52 81 08/27/24 12:46 80 16 97 Nasal Cannula 08/27/24 11:52 36.5 C 69 19 172/83 H 94 Nasal Cannula 08/27/24 08:03 Nasal Cannula 08/27/24 07:35 82 08/27/24 07:33 36.4 C L 80 21 152/80 H 96 Nasal Cannula 08/27/24 07:27 80 17 92 Nasal Cannula 08/27/24 04:42 94 H 17 96 O2 Flow Rate FiO2 08/27/24 14:52 08/27/24 12:46 3 08/27/24 11:52 08/27/24 08:03 5 08/27/24 07:35 08/27/24 07:33 2 08/27/24 07:27 2 08/27/24 04:42 40 all noted and reviewed including below
--- NOTE | 2024-08-27 16:17 | Electrocardiogram Report ---
Test Reason : Blood Pressure : */* mmHG Vent. Rate : 75 BPM Atrial Rate : 75 BPM P-R Int : 130 ms QRS Dur : 116 ms QT Int : 454 ms P-R-T Axes : 24 -26 138 degrees QTcB Int : 506 ms Sinus rhythm with marked sinus arrhythmia with occasional Premature ventricular complexes Left ventricular hypertrophy with QRS widening and repolarization abnormality Old Anterolateral infarct Abnormal ECG When compared with ECG of 25-Aug-2024 06:16, Premature ventricular complexes are now Present Premature atrial complexes are no longer Present Criteria for Anterolateral infarct now present Criteria for Inferior infarct no longer present Confirmed by Kt Goodman ([id number]) on 08/27/2024 4:16:45 PM Referred By: REFERRED SELF Confirmed By: Kt Goodman
[2024-08-27] MEDS: METOPROLOL SUCC 25MG EXT REL TAB PO SCH (20:15)
[2024-08-27] MEDS: MICONAZOLE NITRATE-7 (100 MG EA SUPP) BOX PV SCH (20:16)
[2024-08-27] MEDS: METOPROLOL TARTRATE 1 MG/ML VIAL IV STA (22:25)
[2024-08-27] MEDS: METOCLOPRAMIDE HCL INJ 5 MG/ML 2 ML VIAL IV ONE (22:26)
[2024-08-28] MEDS: ACETAMINOPHEN 325 MG TAB PO PRN (04:27)
[2024-08-28] MEDS: METOPROLOL TARTRATE 1 MG/ML VIAL IV STA (04:28)
[2024-08-28] MEDS: amLODIPine BESYLATE 5 MG TAB PO SCH (04:33)
--- NOTE | 2024-08-28 05:08 | CT Scan Report ---
EXAM: CT head/brain wo con CLINICAL HISTORY: headache TECHNIQUE: Multiple axial images are obtained from the skull base to the vertex without contrast. CT scan was performed according to ALARA (as low as reasonable achievable). COMPARISON: 08/24/2024 22:28:33 ACUTE CARE PHYSICAL THERAPIST FINDINGS: There is cerebral atrophy. No evidence of space occupying lesion, hemorrhage, edema, mass effect, midline shift, extra axial collection, or hydrocephalus is noted. Basal cisterns are symmetric and normal in size and configuration. There are scattered periventricular hypodensities as can be seen with chronic microvascular ischemic changes. The stoddard-white matter differentiation is preserved. Visualized paranasal sinuses are well aerated. Bilateral mastoiditis present. Orbital contents are within normal limits. Bony structures are intact. IMPRESSION: 1. No evidence of acute intracranial abnormality is demonstrated. 2. Chronic microvascular ischemic changes. 3. Cerebral atrophy. 4. Bilateral mastoiditis present. No other new interval abnormality since prior study. Electronically signed by Reggie Husain 08-28-2024 05:07 AM
[2024-08-28] MEDS: ONDANSETRON INJ 2 MG/ML 2 ML VIAL IV STA (08:32)
[2024-08-28] MEDS: hydrALAZINE HCL 20 MG/ML VIAL IV ONE (08:33)
[2024-08-28 09:14] LABS: BUN Creatinine Ratio 10.2 (10-20); Calcium 8.3 mg/dl (8.6-10.3); Creatinine Clr Calc Pharmacy 18.2 ml/min; Potassium 3.3 mmol/L (3.5-5.1)
--- NOTE | 2024-08-28 10:03 | Nephrology Progress Note ---
Date of Service August 28, 2024 Assessment & Plan Admission and Anticipated Discharge Date Admission Date: August 25, 2024 Subjective Assessment & Plan (1) HAYDEN (acute kidney injury): HAYDEN from ATN which happened because of Severe Hypotension and Hypoxia that happened on 08/24/2024. Creat went from 0.96 on Adx to 3.78 in 3 days. Given her extensive cardiac Dz as well as lung Disease and PVD she is very prone to develop ATN with Severe Hypotension and Hypoxia Currently making urine. Now vital signs are good so may start getting better. Creat went down from yesterday to today--good sign. So no dialysis needed. CK checked and low. Renal US done and normal. UA is consistent with ATN picture. No edema but has b/l Crackles and Pl eff so will not give IVF. hold off on lasix if possible BP is high now--Continue to hold off Losartan and Aldactone. Start Amlodipine 5 mg now. Also hydralazine prn for short covering. Hope to restart Losartan and aldactone soon K is low and give 40 meq today. (2) Encephalopathy: Likely from Opioids. Now better S--No new issues. BP running higher and still on o2 but less. Physical Exam Physical Exam: General- Not in acute distress Head- atraumatic Eyes- PERRL. ENT- oropharynx clear Neck- supple, no JVD. Lungs- Decreased BS b/l with Crackles Heart- regular rhythm; no murmur, no gallop. Abdomen- normal bowel sounds, soft, nontender, no distension. Extremities- no pretibial edema, no erythema seen. Neuro- alert, oriented x 3; PERRL, no facial palsy; no dysarthria; obeys commands,moves extremities. Results & Data Vital Signs (Past 12 Hours) Vital Signs Temp Pulse Pulse Resp BP BP Pulse Ox 08/28/24 07:46 36.7 C 77 20 195/95 H 94 08/28/24 07:36 73 08/28/24 07:21 78 15 94 08/28/24 04:56 78 08/28/24 04:28 86 186/92 H 08/28/24 03:58 36.5 C 86 20 186/92 H 96 08/28/24 00:23 77 17 97 08/27/24 23:05 77 08/27/24 22:25 81 180/98 H O2 Del Method O2 Flow Rate 08/28/24 07:46 Nasal Cannula 2 08/28/24 07:36 08/28/24 07:21 Nasal Cannula 2 08/28/24 04:56 08/28/24 04:28 08/28/24 03:58 Nasal Cannula 2 08/28/24 00:23 Nasal Cannula 2 08/27/24 23:05 08/27/24 22:25
[2024-08-28] MEDS: POTASSIUM CHLORIDE 20 MEQ/15 ML UDC PO STA (11:40)
--- NOTE | 2024-08-28 13:57 | XRay Report ---
KUB HISTORY: Acute transabdominal pain with nausea nausea, r/o ileus, obstruction COMPARISON: CT abdomen and pelvis 08/01/2024 FINDINGS: Nonobstructive bowel gas pattern. Right pleural effusion. Right upper quadrant and right in guinal surgical clips. No renal calculi. No ureteral calculi. No pneumoperitoneum or pneumatosis. Ri ght flank soft tissue calcifications. No fracture. IMPRESSION: Nonobstructive bowel gas pattern. ACT 112: Negative or not required by law. The above report was generated using voice recognition software. It may contain grammatical, syntax o r spelling errors. Electronically signed by: Jaime Osullivan M.D. 08/28/2024 1:56 PM
--- NOTE | 2024-08-28 14:23 | Hospitalist Progress Note ---
Date of Service August 28, 2024 Assessment & Plan (1) Altered mental status: Plan (1) Encephalopathy: Plan: per Dr. Zurita' notes with addendum: Ms. Wang is a 68-year-old female with past medical history significant for type 2 diabetes, hyperlipidemia, COPD, CAD status post CABG, heart failure with reduced ejection fraction, paroxysmal atrial fibrillation, peripheral artery disease status post femoral-popliteal bypass surgery, hypertension, mitral valve disease, B12 deficiency, osteoporosis, backache, migraines, iron deficiency anemia, tobacco use use disorder, anxiety, who lives at home with her and ambulates with a cane was brought in because of lethargy and altered mental status. Initial concern for oxycodone overdose, however, patient not responsive to narcan. Improving with steroids (on Decadron 2/ reported benzyl alcohol allergy and patient cannot clarify) #Acute Metabolic Encephalopathy likely 2/2 hypercapnia likely multifactorial iso medications, COPD exacerbation and ?questionable UTI resume home meds as tolerated Delirium precautions tsh, b12, folate WNL 08/28 Resolved #HAYDEN on CKD III IVF ongoing, will d/c when intake sufficient repeat BMP in am avoid nephrotoxic agents potentially prerenal iso relative hypotension Consult nephrology, Cr up to 3.62 repeat BMP 08/27 Creatinine 3.7--3.5 Nephrology service consulted Continue to monitor 09/07 crea 3.5 --> 2.6 coContinue to monitor closely #Acute hypoxic hypercapnic resp failure #Acute COPD #Current tobacco use #?opioid overdose: low suspicion as patient did not respond much to narcan and still lethargic CXR with atelectatic changes CTX and doxy continued procal negative Decadron 10mg daily (allergic to preservative in solumedrol) pulmicort and performist bid LAMA/LABA/ICS at this time nicotine patch stable V/Q scan: no PE 08/27 Currently on 3 L of O2 via nasal cannula Continue with Zosyn, Decadron, Pulmicort, Perforomist, Anoro Ellipta Vancomycin p.o. for C. difficile prophylaxis 08/28 Continues to improve DC Decadron in light of clinical improvement and hypertension Continue with Zosyn, Pulmicort, Perforomist, and Ellipta Vancomycin p.o. for C. difficile prophylaxis #NSTEMI II likely demand iso hypoxic CTM on tele, Cards following: conservative management at this time #HFmrEF 2/2 ischemic cardiomyopathy #PAF hold losartan continue BB continue eliquis Resume meds as able #Current hypotension #History hypertension hold antihypertensives, resume as appropriate encourage po as able 08/28 Blood pressure elevated Resumed Imdur 30 mg daily Amlodipine 2.5 mg p.o. daily added Continue usual metoprolol When IV hydralazine #Chronic diarrhea Recent C. difficile colitis, positive gene not toxin Continue Vancomycin 125 daily for prophylaxis 08/28 Positive nausea today Check KUB: Nonobstructive bowel gas pattern As needed Zofran Check stools stool panel PCR and C. difficile #Type 2 diabetes Not on meds A1C 6.1% #Peripheral artery disease On statin and Eliquis #Hyperlipidemia On statin #Chronic backache Will hold oxycodone and gabapentin for now #Iron deficiency anemia B12 deficiency Hemoglobin 11.4 today--> 10.7 stable #Chronic leukocytosis likely iso chronic tobacco use peripheral smear ordered #Prolonged QTc will follow repeat EKG Avoid QT prolonging drugs QT 523--> 506 Monitor closely #hx of hypokalemia and hypomagnesia -- will follow labs DVT prophylaxis On Eliquis Disposition Telemetry Admission and Anticipated Discharge Date Admission Date: August 25, 2024 Subjective Follow-up for pneumonia, acute renal failure, etc. Events overnight noted Was having nausea earlier in the morning Seen sitting up in bed, comfortable, on 3 L of O2 States she feels somewhat better compared to this morning Nausea comes in waves Denies abdominal pain, reports chronic diarrhea States breathing is improving No other new symptoms Review of Systems Review of Systems: all noted and negative except for above Physical Exam Physical Exam: General- oriented x 3, not in distress, speaks in sentences with no effort or accessory muscle use Eyes- anicteric Neck- no JVD Lungs- mild rales at the bases Heart- normal rate, regular rhythm; no murmurs Abdomen- normal bowel sounds, nondistended, soft, nontender Extremities- no pretibial edema, no calf tenderness Neuro- alert, oriented x 3; no gross focal neurologic deficits Skin- warm & dry Results & Data Results & Data Vital Signs (Past 12 Hours) Vital Signs Temp Pulse Pulse Resp BP BP BP 08/28/24 13:23 69 18 08/28/24 11:29 08/28/24 11:01 36.4 C L 73 19 161/88 H 08/28/24 07:46 36.7 C 77 20 195/95 H 08/28/24 07:36 73 08/28/24 07:21 78 15 08/28/24 04:56 78 08/28/24 04:28 86 186/92 H 08/28/24 03:58 36.5 C 86 20 186/92 H Pulse Ox O2 Del Method O2 Flow Rate 08/28/24 13:23 96 Nasal Cannula 3 08/28/24 11:29 Nasal Cannula 2 08/28/24 11:01 96 Nasal Cannula 2 08/28/24 07:46 94 Nasal Cannula 2 08/28/24 07:36 08/28/24 07:21 94 Nasal Cannula 2 08/28/24 04:56 08/28/24 04:28 08/28/24 03:58 96 Nasal Cannula 2 all noted and reviewed including below
--- NOTE | 2024-08-28 14:36 | Cardiology Progress Note ---
Date of Service August 28, 2024 Assessment & Plan (1) Altered mental status: (2) Encephalopathy: (3) Hypotension: (4) ASCVD (arteriosclerotic cardiovascular disease): (5) Elevated troponin: (6) NSTEMI (non-ST elevated myocardial infarction): (7) Ischemic cardiomyopathy: (8) Paroxysmal atrial fibrillation: (9) Current smoker: Plan 08/25/24 Markedly complex 68-year-old female admitted with lethargy and altered mental status. Cardiology consultation requested secondary to elevated troponin (51.0 -> 200.1 -> 234.5 pg/mL). EKG with new anterior T wave inversion, chronically abnormal laterally Resting echocardiography findings similar to prior, mild reduction in LV systolic function, EF 40 to 45%, prior posterior and lateral infarct. Patient without angina/chest pain. Recommendations: * Conservative medical management for the type II NSTEMI * Aspirin discontinued in 2021, when prescribed Eliquis anticoagulation * Continue beta-atif, statin, and long-acting nitrates. * Continue Eliquis anticoagulation for the PAF and PAD * Hold losartan secondary to hypotension * Patient with past poor tolerance to Jardiance * Tobacco cessation mandated 08/26/24: Patient more awake/alert today. HS troponin peaked and trended downwards. [phone], consistent with NSTEMI secondary to demand ischemia in setting of acute respiratory failure with hypoxia. Repeat EKG tomorrow AM. Patient is currently without anginal complaints. Echo with LVEF 40-45%, similar to past studies. Continue Eliquis 5 mg BID Continue metoprolol and isosorbide. Continue Statin ASA stopped several years ago upon initiation of Eliquis Losartan on hold due to hypotension and HAYDEN Creatinine trending higher this morning at 3.62 (was 1.3 yesterday). Continue to hold losartan. No need for diuretics. Appears euvolemic. VQ scan negative for PE. Continue antibiotics and supplemental O2. 08/27/24: Improving oxygen status this morning. requiring less supplemental O2. Continue antibiotics. Repeat chest xray - mild crackles on exam. Weight trending upward. + fluid balance. She is high risk for CHF exacerbation. May need IV lasix, but given sudden rise in creatinine will try to avoid. Creatinine 3.7 today (3.6 yesterday). Was 1.3 on admission. Patient reports poor urine output is chronic for her. Hold Losartan. BP trending higher. PVC's on telemetry. Increase metoprolol to 50 mg in AM (home dose). Add 25 mg in PM. Supplement potassium 20 meq today and magnesium 400 to keep potassium 4.0-5.0 and magnesium > 2.0. No anginal complaints. continued GDMT for CAD/CHF including ASA, statin, metoprolol, isosorbide. Did not tolerated Jardiance. will not start spironolactone given elevated creatinine. 08/28/24: Oxygen requirements continue to improve. Now on 2 L. Chest xray yesterday with b/l pleural effusions. Diuretics to be avoided given HAYDEN. Creatinine improving. Avoid IV fluids/meds Avoid nephrotoxins. BP tending higher. Continue metoprolol, isosorbide. Amlodipine added. continue ASA and statin. Case discussed with Dr. Ceja I spent a total of 30 minutes on the date of service in preparation, delivery, and documentation of the care provided to this patient, excluding any time spent in the performance of separately billed services. Kyleigh Sanders PA-C Department of Cardiology, [facility] This chart was completed in part utilizing Speech Voice Recognition Software. Grammatical errors, random word insertions, pronoun errors, and incomplete sentences are an occasional consequence of this system due to software limitations, ambient noise, and hardware issues. Any formal questions or concerns about the content, text, or information contained within the body of this dictation should be directly addressed to the provider for clarification. Admission and Anticipated Discharge Date Admission Date: August 25, 2024 Supervising Physician Co-Signing Physician Notes Attending attestation: Case reviewed with the advanced practitioner. I have personally performed a history and physical examination on the patient. I have reviewed the advanced practitioner's documentation on the date of service referenced in note, and I agree with, and take responsibility for the plan of care. Mars Ceja, DO Subjective Patient resting in bed. SOB and mental status continues to improve. Awake and alert today. Review of Systems Review of Systems: All systems reviewed & are unremarkable except as noted in HPI & below Physical Exam Constitutional: WD/WN, vitals as above average body habitus; no acute distress Neck: trachea midline, no thyromegaly normal visual inspection Respiratory: no respiratory distress Auscultation: + diminished lung sounds and + crackles; no rales and no wheezes Cardiovascular: Rate/Rhythm: regular rate and regular rhythm Heart Sounds: no murmur Vessels: no JVD Extremities: no edema Gastrointestinal (Abdomen): normal bowel sounds, soft, nontender, no hepatosplenomegaly Neurologic: PERRL, EOMI, accommodation nl, no face palsy, no dysarthria Results & Data Vital Signs (Past 12 Hours) Vital Signs Temp Pulse Pulse Resp BP BP BP 08/28/24 13:23 69 18 08/28/24 11:29 08/28/24 11:01 36.4 C L 73 19 161/88 H 08/28/24 07:46 36.7 C 77 20 195/95 H 08/28/24 07:36 73 08/28/24 07:21 78 15 08/28/24 04:56 78 08/28/24 04:28 86 186/92 H 08/28/24 03:58 36.5 C 86 20 186/92 H Pulse Ox O2 Del Method O2 Flow Rate 08/28/24 13:23 96 Nasal Cannula 3 08/28/24 11:29 Nasal Cannula 2 08/28/24 11:01 96 Nasal Cannula 2 08/28/24 07:46 94 Nasal Cannula 2 08/28/24 07:36 08/28/24 07:21 94 Nasal Cannula 2 08/28/24 04:56 08/28/24 04:28 08/28/24 03:58 96 Nasal Cannula 2 Laboratory Results Comprehensive Metabolic Panel 08/27/24 08/28/24 Range/Units 14:49 08:33 Sodium 142 141 (136-145) mmol/L Potassium 3.7 3.3 L (3.5-5.1) mmol/L Chloride 112 H 112 H (98-107) mmol/L Carbon Dioxide 22 23 (21-32) mmol/L BUN 33 H 27 H (6-23) mg/dl Creatinine 3.51 H 2.64 H D (0.6-1.2) mg/dl Glucose 278 H 114 H (70-99(Fasting)) mg/dl Calcium 8.0 L 8.3 L (8.6-10.3) mg/dl Albumin 2.7 L (3.4-5.0) gm/dl Intake and Output 08/27/24 08/28/24 08/28/24 22:59 06:59 14:59 Intake Total 200 / 800 340 / 340 Output Total 351 / 1127 426 / 1127 550 / 550 Balance -151 / -327 -426 / -327 -210 / -210 Intake: IV 100 / 200 100 / 100 Piperacillin/Tazobactam 4.5 gm 100 / 200 100 / 100 In 100 ml @ 25 mls/hr IV Q12H [facility] Rx#:[id number] Oral 100 / 600 240 / 240 Output: Urine Amount (Catheter) 350 / 1125 425 / 1125 550 / 550 Vazquez/Indwelling 350 / 1125 425 / 1125 550 / 550 # Bowel Movements / 2 Other: Weight 68.5 kg Diagnostic Findings Chest xray reviewed from IMPRESS[facility]: Cardiomegaly and moderate right and small left pleural effusions. Medications Administered Current Inpatient Medications Acetaminophen (Acetaminophen 325 Mg Tab) 650 mg PO QID PRN PRN Reason: pain/fever Stop: 09/27/24 04:06 Last Admin: 08/28/24 04:27 Dose: 650 mg Albuterol (Albuterol Hfa 8 Gm Inhaler) 2 puffs INH Q4H PRN PRN Reason: sob Stop: 09/24/24 04:11 Albuterol (Albut/Ipratrop 3mg/0.5mg Neb 3 Ml Vial) 3 ml NEB Q6R [facility]; Protocol Stop: 09/24/24 13:44 Last Admin: 08/28/24 13:23 Dose: 3 ml Amlodipine Besylate (Amlodipine Besylate 5 Mg Tab) 2.5 mg PO QAM [facility] Stop: 09/27/24 04:09 Last Admin: 08/28/24 04:33 Dose: 2.5 mg Apixaban (Apixaban 5 Mg Tablet) 5 mg PO BID [facility] Stop: 09/24/24 08:59 Last Admin: 08/28/24 09:28 Dose: 5 mg Budesonide (Budesonide 0.5 Mg/2 Ml Vial (Pulmicort)) 0.5 mg NEB BIDR [facility] Stop: 09/24/24 18:59 Last Admin: 08/28/24 07:21 Dose: 0.5 mg Calcitonin Chunky (Calcitonin Chunky Na 200 Iu/Ac 3.7 Ml Btl) 1 sprays NA DAILY [facility] Stop: 09/24/24 08:59 Last Admin: 08/28/24 09:39 Dose: 1 sprays Wise Syrup (Wise Syrup 5 Ml Udp) 5 ml PO DAILY [facility] Stop: 09/05/24 08:59 Last Admin: 08/28/24 09:27 Dose: 5 ml Fluticasone Propionate (Fluticasone Propionate Na Spr 16 Gm Btl) 1 sprays NA BID [facility] Stop: 09/24/24 08:59 Last Admin: 08/28/24 09:31 Dose: 1 sprays Formoterol Fumarate (Formoterol 20 Mcg/2 Ml Vial) 20 mcg NEB BIDR [facility] Stop: 09/24/24 08:59 Last Admin: 08/28/24 07:21 Dose: 20 mcg Hydralazine HCl (Hydralazine Hcl 20 Mg/Ml Vial) 5 mg IV Q6H PRN PRN Reason: systolic bp > 160 Stop: 09/27/24 08:20 Piperacillin Sod/Tazobactam Sod (Zosyn) 4.5 gm in 100 mls @ 25 mls/hr IV Q12H [facility]; Protocol Stop: 08/30/24 13:59 Last Infusion: 08/28/24 09:55 Dose: Infused Isosorbide Mononitrate (Isosorbide Archuleta Extended Rel 30 Mg Tabcr) 30 mg PO DAILY [facility] Stop: 09/24/24 08:59 Last Admin: 08/28/24 09:29 Dose: 30 mg Lactobacillus Acidophilus (Advanced Probiotic 625 Mg Capsule) 1,250 mg PO DAILY [facility] Stop: 09/26/24 08:59 Last Admin: 08/28/24 09:27 Dose: 1,250 mg Levalbuterol HCl (Levalbuterol 1.25 Mg/3 Ml Neb) 1.25 mg NEB Q4H PRN PRN Reason: Shortness Of Breath Or Wheezing Stop: 09/24/24 07:09 Lorazepam (Lorazepam 0.5 Mg Tab) 0.5 mg PO Q8H PRN PRN Reason: Anxiety Stop: 09/24/24 11:12 Last Admin: 08/28/24 05:30 Dose: 0.5 mg Magnesium Oxide (Magnesium Oxide 400 Mg Tab) 400 mg PO QAM [facility] Stop: 09/26/24 09:59 Last Admin: 08/28/24 09:27 Dose: 400 mg Metoprolol Succinate (Metoprolol Succ 50mg Ext Rel Tab) 50 mg PO DAILY [facility]I Stop: 09/24/24 08:59 Last Admin: 08/28/24 09:29 Dose: 50 mg Metoprolol Succinate (Metoprolol Succ 25mg Ext Rel Tab) 25 mg PO QPM [facility]I Stop: 09/26/24 20:59 Last Admin: 08/27/24 20:15 Dose: 25 mg Miconazole Nitrate (Miconazole Nitrate-7 (100 Mg Ea Supp) Box) 1 supp PV HS MANDI Stop: 09/03/24 20:59 Last Admin: 08/27/24 20:16 Dose: 1 supp Miscellaneous (Remove Nicoderm Patch) 1 each N/A DAILY@0859 [facility]I Stop: 09/25/24 08:58 Last Admin: 08/28/24 08:33 Dose: 1 each Nicotine (Nicotine 21 Mg/24 Hr Tdsy) 1 patch TD QAM [facility]I Stop: 09/24/24 04:49 Last Admin: 08/28/24 09:31 Dose: 1 patch Ondansetron HCl (Ondansetron Inj 2 Mg/Ml 2 Ml Vial) 4 mg IV Q6H PRN PRN Reason: Nausea And Vomiting Stop: 09/27/24 08:18 Pantoprazole Sodium (Pantoprazole 40 Mg Tab) 40 mg PO DAILY [facility] Stop: 09/24/24 08:59 Last Admin: 08/28/24 09:28 Dose: 40 mg Pravastatin Sodium (Pravastatin Sod 40 Mg Tab) 40 mg PO DAILY M[facility]I Stop: 09/24/24 08:59 Last Admin: 08/28/24 09:28 Dose: 40 mg Umeclidinium/Vilanterol (Umeclidinium/Vilanterol 62.5/25mcg 7 Puffs/Inhaler) 1 puffs INH DAILY [facility]ANDI Stop: 09/24/24 08:59 Last Admin: 08/28/24 09:31 Dose: 1 puffs Vancomycin HCl (Vancomycin Hcl 125 Mg/2.5ml Soln) 125 mg PO DAILY [facility] Stop: 09/05/24 08:59 Last Admin: 08/28/24 09:26 Dose: 125 mg
[2024-08-28 14:58] LABS: Adenovirus F 40/41 PCR Not Detected (NotDetected); Astrovirus PCR Not Detected (NotDetected); Campylobacter PCR Not Detected (NotDetected); Cryptosporidium PCR Not Detected (NotDetected); Cyclospora cayetanensis PCR Not Detected (NotDetected); Entamoeba histolytica PCR Not Detected (NotDetected); Enteroaggregative E.coli(EAEC) Not Detected (NotDetected); Enteropathogenic E.coli (EPEC) Not Detected (NotDetected); Enterotoxigenic E.coli (ETEC) Not Detected (NotDetected); Giardia lamblia PCR Not Detected (NotDetected); Norovirus GI/GII PCR Not Detected (NotDetected); Plesiomonas shigelloides PCR Not Detected (NotDetected); Rotavirus A PCR Not Detected (NotDetected); Salmonella PCR Not Detected (NotDetected); Sapovirus PCR Not Detected (NotDetected); Shiga-like Toxin E.coli (STEC) Not Detected (NotDetected); Shigella/Enteroinvasive E.coli Not Detected (NotDetected); Vibrio cholerae PCR Not Detected (NotDetected); Vibrio species PCR Not Detected (NotDetected); Yersinia enterocolitica PCR Not Detected (NotDetected)
[2024-08-28] MEDS: ONDANSETRON INJ 2 MG/ML 2 ML VIAL IV PRN (20:42)
[2024-08-28] MEDS: METOCLOPRAMIDE HCL INJ 5 MG/ML 2 ML VIAL IV ONE (22:54)
[2024-08-29] MEDS: hydrALAZINE HCL 20 MG/ML VIAL IV PRN (04:06)
[2024-08-29 06:39] LABS: BUN Creatinine Ratio 13.3 (10-20); Calcium 8.8 mg/dl (8.6-10.3); Creatinine Clr Calc Pharmacy 25.6 ml/min; Potassium 3.6 mmol/L (3.5-5.1)
--- NOTE | 2024-08-29 09:05 | Nephrology Progress Note ---
Date of Service August 29, 2024 Assessment & Plan Admission and Anticipated Discharge Date Admission Date: August 25, 2024 Subjective Assessment & Plan (1) HAYDEN (acute kidney injury): HAYDEN from ATN which happened because of Severe Hypotension and Hypoxia that happened on 08/24/2024. Creat went from 0.96 on Adx to 3.78 in 3 days. Given her extensive cardiac Dz as well as lung Disease and PVD she is very prone to develop ATN with Severe Hypotension and Hypoxia Currently making urine. Now vital signs are good so may start getting better. Creat went further down from yesterday to today 1.88 --good sign. electrolytes are good. So no dialysis needed. CK checked and low. Renal US done and normal. UA is consistent with ATN picture. No edema but has b/l rhonchi and Pl eff ( CHF vs COPD) so will not give IVF. hold off on lasix if possible but can be given if SOB BP is high now--Continue to hold off Losartan and Aldactone. Start Amlodipine 5 mg now. Also hydralazine prn for short covering. Hope to restart Losartan and aldactone soon--maybe tomorrow or Sunday. K is low and give 40 meq today. Can remove connolly now. (2) Encephalopathy: Likely from newly started Opioids. Now better S--No new issues. BP running higher and now RA. no o2 Physical Exam Physical Exam: General- Not in acute distress Head- atraumatic Eyes- PERRL. ENT- oropharynx clear Neck- supple, no JVD. Lungs- Decreased BS b/l with Crackles Heart- regular rhythm; no murmur, no gallop. Abdomen- normal bowel sounds, soft, nontender, no distension. Extremities- no pretibial edema, no erythema seen. Neuro- alert, oriented x 3; PERRL, no facial palsy; no dysarthria; obeys commands,moves extremities. Results & Data Vital Signs (Past 12 Hours) Vital Signs Temp Pulse Pulse Resp BP BP Pulse Ox 08/29/24 08:19 08/29/24 08:14 73 20 91 08/29/24 07:47 68 20 182/65 H 94 08/29/24 07:34 80 08/29/24 07:34 74 17 98 08/29/24 05:48 175/84 H 08/29/24 04:00 36.6 C 72 18 185/73 H 200/89 H 97 08/29/24 00:34 78 18 99 08/28/24 23:59 75 08/28/24 23:50 36.4 C L 67 18 173/85 H 97 O2 Del Method O2 Flow Rate 08/29/24 08:19 Room Air 08/29/24 08:14 Room Air 08/29/24 07:47 Room Air 08/29/24 07:34 08/29/24 07:34 Nasal Cannula 2 08/29/24 05:48 08/29/24 04:00 Nasal Cannula 3.0 08/29/24 00:34 Nasal Cannula 2 08/28/24 23:59 08/28/24 23:50 Nasal Cannula 3.0
[2024-08-29] MEDS: FOSAPREPITANT DIMEGLUMINE 150 MG in SODIUM CHLORIDE 0.9% 145 ML IV ONE (09:20)
[2024-08-29] MEDS: hydrALAZINE HCL 20 MG/ML VIAL IV ONE (09:21)
[2024-08-29] MEDS: amLODIPine BESYLATE 5 MG TAB PO SCH (09:23)
[2024-08-29] MEDS: GABAPENTIN 300 MG CAP PO SCH (09:24)
[2024-08-29] MEDS: LORazepam 2 MG/1 ML VIAL IV PRN (09:30)
--- NOTE | 2024-08-29 11:27 | Cardiology Progress Note ---
Date of Service August 29, 2024 Assessment & Plan (1) Altered mental status: (2) Encephalopathy: (3) Hypotension: (4) ASCVD (arteriosclerotic cardiovascular disease): (5) Elevated troponin: (6) NSTEMI (non-ST elevated myocardial infarction): (7) Ischemic cardiomyopathy: (8) Paroxysmal atrial fibrillation: (9) Current smoker: Plan 08/25/24 Markedly complex 68-year-old female admitted with lethargy and altered mental status. Cardiology consultation requested secondary to elevated troponin (51.0 -> 200.1 -> 234.5 pg/mL). EKG with new anterior T wave inversion, chronically abnormal laterally Resting echocardiography findings similar to prior, mild reduction in LV systolic function, EF 40 to 45%, prior posterior and lateral infarct. Patient without angina/chest pain. Recommendations: * Conservative medical management for the type II NSTEMI * Aspirin discontinued in 2021, when prescribed Eliquis anticoagulation * Continue beta-atif, statin, and long-acting nitrates. * Continue Eliquis anticoagulation for the PAF and PAD * Hold losartan secondary to hypotension * Patient with past poor tolerance to Jardiance * Tobacco cessation mandated 08/26/24: Patient more awake/alert today. HS troponin peaked and trended downwards. [phone], consistent with NSTEMI secondary to demand ischemia in setting of acute respiratory failure with hypoxia. Repeat EKG tomorrow AM. Patient is currently without anginal complaints. Echo with LVEF 40-45%, similar to past studies. Continue Eliquis 5 mg BID Continue metoprolol and isosorbide. Continue Statin ASA stopped several years ago upon initiation of Eliquis Losartan on hold due to hypotension and HAYDEN Creatinine trending higher this morning at 3.62 (was 1.3 yesterday). Continue to hold losartan. No need for diuretics. Appears euvolemic. VQ scan negative for PE. Continue antibiotics and supplemental O2. 08/27/24: Improving oxygen status this morning. requiring less supplemental O2. Continue antibiotics. Repeat chest xray - mild crackles on exam. Weight trending upward. + fluid balance. She is high risk for CHF exacerbation. May need IV lasix, but given sudden rise in creatinine will try to avoid. Creatinine 3.7 today (3.6 yesterday). Was 1.3 on admission. Patient reports poor urine output is chronic for her. Hold Losartan. BP trending higher. PVC's on telemetry. Increase metoprolol to 50 mg in AM (home dose). Add 25 mg in PM. Supplement potassium 20 meq today and magnesium 400 to keep potassium 4.0-5.0 and magnesium > 2.0. No anginal complaints. continued GDMT for CAD/CHF including ASA, statin, metoprolol, isosorbide. Did not tolerated Jardiance. will not start spironolactone given elevated creatinine. 08/28/24: Oxygen requirements continue to improve. Now on 2 L. Chest xray yesterday with b/l pleural effusions. Diuretics to be avoided given HAYDEN. Creatinine improving. Avoid IV fluids/meds Avoid nephrotoxins. BP tending higher. Continue metoprolol, isosorbide. Amlodipine added. continue ASA and statin. 08/29/24: Improved oxygen and respiratory status Improved encephalopathy Creatinine trending downward. Appreciate nephrology's input. Losartan and Aldactone on hold with HAYDEN Hypotension resolved and now hypertensive. Amlodipine 5 mg added. Continue isosorbide 30 mg. Acceptable to increase dose if needed. Continue metoprolol. Continue statin Continue Eliquis. Will follow up as outpatient regarding abnormal EKG. Likely ongoing med manag ement recommended. She is currently asymptomatic. No further cardiac testing required at this time. Will sign off. Please contact branch operation evaluation manager provider with additional questions or concerns. Case discussed with Dr. Ceja I spent a total of 30 minutes on the date of service in preparation, delivery, and documentation of the care provided to this patient, excluding any time spent in the performance of separately billed services. Kyleigh Sanders PA-C Department of Cardiology, [facility] This chart was completed in part utilizing Speech Voice Recognition Software. Grammatical errors, random word insertions, pronoun errors, and incomplete sentences are an occasional consequence of this system due to software limitations, ambient noise, and hardware issues. Any formal questions or concer ns about the content, text, or information contained within the body of this dictation should be directly addressed to the provider for clarification. Admission and Anticipated Discharge Date Admission Date: August 25, 2024 Supervising Physician Co-Signing Physician Notes Attending attestation: Case reviewed with the advanced practitioner. I have personally performed a history and physical examination on the patient. I have reviewed the advanced practitioner's documentation on the date of service referenced in note, and I agree with, and take responsibility for the plan of care. Creatinine has improved trending down to 1.88 mg/dL today. Most recent blood pressure measurement today at 1335 was 150/73. Nephrology input noted appreciated No further cardiac testing felt to be indicated at this time. Follow-up with primary cardiology, [facility] to sign off. Please call with questions or concerns. Mars Ceja, DO Subjective Patient resting in bed. Ongoing nausea reported this morning. No chest pain. No SOB. Now off supplemental O2. No fever, cough, chills. Has no appetite Review of Systems Review of Systems: All systems reviewed & are unremarkable except as noted in HPI & below Physical Exam Constitutional: WD/WN, vitals as above average body habitus; no acute distress Neck: trachea midline, no thyromegaly normal visual inspection Respiratory: no respiratory distress Auscultation: + diminished lung sounds; no crackles, no rales and no wheezes Cardiovascular: Rate/Rhythm: regular rate and regular rhythm Heart Sounds: no murmur Vessels: no JVD Extremities: no edema Gastrointestinal (Abdomen): normal bowel sounds, soft, nontender, no hepatosplenomegaly Neurologic: PERRL, EOMI, accommodation nl, no face palsy, no dysarthria Results & Data Vital Signs (Past 12 Hours) Vital Signs Temp Pulse Pulse Resp BP BP Pulse Ox 08/29/24 10:39 93 08/29/24 08:19 08/29/24 08:14 73 20 91 08/29/24 07:47 68 20 182/65 H 94 08/29/24 07:34 80 08/29/24 07:34 74 17 98 08/29/24 05:48 175/84 H 08/29/24 04:00 36.6 C 72 18 185/73 H 200/89 H 97 08/29/24 00:34 78 18 99 08/28/24 23:59 75 08/28/24 23:50 36.4 C L 67 18 173/85 H 97 O2 Del Method O2 Flow Rate 08/29/24 10:39 Room Air 08/29/24 08:19 Room Air 08/29/24 08:14 Room Air 08/29/24 07:47 Room Air 08/29/24 07:34 08/29/24 07:34 Nasal Cannula 2 08/29/24 05:48 08/29/24 04:00 Nasal Cannula 3.0 08/29/24 00:34 Nasal Cannula 2 08/28/24 23:59 08/28/24 23:50 Nasal Cannula 3.0 Laboratory Results Comprehensive Metabolic Panel 08/29/24 Range/Units 05:40 Sodium 141 (136-145) mmol/L Potassium 3.6 (3.5-5.1) mmol/L Chloride 111 H (98-107) mmol/L Carbon Dioxide 22 (21-32) mmol/L BUN 25 H (6-23) mg/dl Creatinine 1.88 H D (0.6-1.2) mg/dl Glucose 102 H (70-99(Fasting)) mg/dl Calcium 8.8 (8.6-10.3) mg/dl Intake and Output 08/28/24 08/29/24 08/29/24 22:59 06:59 14:59 Intake Total 150 / 590 100 / 590 299.583 / 299.583 Output Total 350 / 900 350 / 350 Balance -200 / -310 100 / -310 -50.417 / -50.417 Intake: IV 100 / 200 249.583 / 249.583 Fosaprepitant Dimeglumine 150 150 / 150 mg In Sodium Chloride 0.9% 145 ml @ 300 mls/hr IV ONE ONE Rx#: [id number] Piperacillin/Tazobactam 4.5 gm 100 / 200 99.583 / 99.583 In 100 ml @ 25 mls/hr IV Q12H [facility] Rx#:[id number] Oral 150 / 390 50 / 50 Output: Urine Amount (Catheter) 350 / 900 350 / 350 Vazquez/Indwelling 350 / 900 350 / 350 Other: Weight 68 kg Weight Measurement Method Built in [facility] Patient Weight 08/30/24 06:59 Weight 68 kg Diagnostic Findings Telemetry reviewed: NSR with occ PVC Medications Administered Current Inpatient Medications Acetaminophen (Acetaminophen 325 Mg Tab) 650 mg PO QID PRN PRN Reason: pain/fever Stop: 09/27/24 04:06 Last Admin: 08/28/24 04:27 Dose: 650 mg Albuterol (Albuterol Hfa 8 Gm Inhaler) 2 puffs INH Q4H PRN PRN Reason: sob Stop: 09/24/24 04:11 Albuterol (Albut/Ipratrop 3mg/0.5mg Neb 3 Ml Vial) 3 ml NEB Q6R [facility]; Protocol Stop: 09/24/24 13:44 Last Admin: 08/29/24 07:33 Dose: Not Given Amlodipine Besylate (Amlodipine Besylate 5 Mg Tab) 5 mg PO QAM MANDI Stop: 09/28/24 08:59 Last Admin: 08/29/24 09:23 Dose: 5 mg Apixaban (Apixaban 5 Mg Tablet) 5 mg PO BID MANDI Stop: 09/24/24 08:59 Last Admin: 08/29/24 09:50 Dose: 5 mg Budesonide (Budesonide 0.5 Mg/2 Ml Vial (Pulmicort)) 0.5 mg NEB BIDR [facility] Stop: 09/24/24 18:59 Last Admin: 08/29/24 07:33 Dose: 0.5 mg Calcitonin [place] (Calcitonin [place] Na 200 Iu/Ac 3.7 Ml Btl) 1 sprays NA DAILY [facility] Stop: 09/24/24 08:59 Last Admin: 08/29/24 09:51 Dose: 1 sprays Wise Syrup (Wise Syrup 5 Ml Udp) 5 ml PO DAILY [facility] Stop: 09/05/24 08:59 Last Admin: 08/29/24 09:50 Dose: 5 ml Fluticasone Propionate (Fluticasone Propionate Na Spr 16 Gm Btl) 1 sprays NA BID [facility] Stop: 09/24/24 08:59 Last Admin: 08/29/24 09:51 Dose: 1 sprays Formoterol Fumarate (Formoterol 20 Mcg/2 Ml Vial) 20 mcg NEB BIDR [facility] Stop: 09/24/24 08:59 Last Admin: 08/29/24 07:33 Dose: 20 mcg Gabapentin (Gabapentin 300 Mg Cap) 300 mg PO BID [facility] Stop: 09/28/24 08:59 Last Admin: 08/29/24 09:24 Dose: 300 mg Hydralazine HCl (Hydralazine Hcl 20 Mg/Ml Vial) 5 mg IV Q6H PRN PRN Reason: systolic bp > 160 Stop: 09/27/24 08:20 Last Admin: 08/29/24 04:06 Dose: 5 mg Piperacillin Sod/Tazobactam Sod (Zosyn) 4.5 gm in 100 mls @ 25 mls/hr IV Q12H [facility]; Protocol Stop: 08/30/24 13:59 Last Infusion: 08/29/24 10:16 Dose: Infused Isosorbide Mononitrate (Isosorbide [place] Extended Rel 30 Mg Tabcr) 30 mg PO DAILY [facility] Stop: 09/24/24 08:59 Last Admin: 08/29/24 09:48 Dose: 30 mg Lactobacillus Acidophilus (Advanced Probiotic 625 Mg Capsule) 1,250 mg PO DAILY [facility] Stop: 09/26/24 08:59 Last Admin: 08/29/24 09:48 Dose: 1,250 mg Levalbuterol HCl (Levalbuterol 1.25 Mg/3 Ml Neb) 1.25 mg NEB Q4H PRN PRN Reason: Shortness Of Breath Or Wheezing Stop: 09/24/24 07:09 Lorazepam (Lorazepam 2 Mg/1 Ml Vial) 0.5 mg IV Q6H PRN PRN Reason: Anxiety/Agitation Stop: 09/28/24 08:35 Magnesium Oxide (Magnesium Oxide 400 Mg Tab) 400 mg PO QAM [facility] Stop: 09/26/24 09:59 Last Admin: 08/29/24 09:49 Dose: 400 mg Metoprolol Succinate (Metoprolol Succ 50mg Ext Rel Tab) 50 mg PO DAILY [facility] Stop: 09/24/24 08:59 Last Admin: 08/29/24 09:49 Dose: 50 mg Metoprolol Succinate (Metoprolol Succ 25mg Ext Rel Tab) 25 mg PO QPM [facility] Stop: 09/26/24 20:59 Last Admin: 08/28/24 20:47 Dose: 25 mg Miconazole Nitrate (Miconazole Nitrate-7 (100 Mg Ea Supp) Box) 1 supp PV HS [facility] Stop: 09/03/24 20:59 Last Admin: 08/28/24 20:48 Dose: 1 supp Miscellaneous (Remove Nicoderm Patch) 1 each N/A DAILY@0859 [facility] Stop: 09/25/24 08:58 Last Admin: 08/29/24 09:51 Dose: 1 each Nicotine (Nicotine 21 Mg/24 Hr Tdsy) 1 patch TD QAM [facility] Stop: 09/24/24 04:49 Last Admin: 08/29/24 09:51 Dose: 1 patch Ondansetron HCl (Ondansetron Inj 2 Mg/Ml 2 Ml Vial) 4 mg IV Q6H PRN PRN Reason: Nausea And Vomiting Stop: 09/27/24 08:18 Last Admin: 08/29/24 05:53 Dose: 4 mg Pantoprazole Sodium (Pantoprazole 40 Mg Tab) 40 mg PO DAILY [facility] Stop: 09/24/24 08:59 Last Admin: 08/29/24 09:50 Dose: 40 mg Pravastatin Sodium (Pravastatin Sod 40 Mg Tab) 40 mg PO DAILY [facility] Stop: 09/24/24 08:59 Last Admin: 08/29/24 09:50 Dose: 40 mg Umeclidinium/Vilanterol (Umeclidinium/Vilanterol 62.5/25mcg 7 Puffs/Inhaler) 1 puffs INH DAILY [facility] Stop: 09/24/24 08:59 Last Admin: 08/29/24 09:52 Dose: 1 puffs Vancomycin HCl (Vancomycin Hcl 125 Mg/2.5ml Soln) 125 mg PO DAILY [facility] Stop: 09/05/24 08:59 Last Admin: 08/29/24 09:50 Dose: 125 mg
[2024-08-29] MEDS ORDERED: ALBUT/IPRATROP 3MG/0.5MG NEB 3 ML VIAL NEB PRN (13:14)
[2024-08-29] MEDS: PIPERACILLIN/TAZOBACTAM 4.5 GM/100 ML BAG IV SCH (16:12)
--- NOTE | 2024-08-29 16:58 | Hospitalist Progress Note ---
Date of Service August 29, 2024 Assessment & Plan (1) Altered mental status: Plan: (1) Encephalopathy: Plan: per Dr. Zurita' notes with addendum: Ms. Wang is a 68-year-old female with past medical history significant for type 2 diabetes, hyperlipidemia, COPD, CAD status post CABG, heart failure with reduced ejection fraction, paroxysmal atrial fibrillation, peripheral artery disease status post femoral-popliteal bypass surgery, hypertension, mitral valve disease, B12 deficiency, osteoporosis, backache, migraines, iron deficiency anemia, tobacco use use disorder, anxiety, who lives at home with her and ambulates with a cane was brought in because of lethargy and altered mental status. Initial concern for oxycodone overdose, however, patient not responsive to narcan. Improving with steroids (on Decadron 2/ reported benzyl alcohol allergy and patient cannot clarify) #Acute Metabolic Encephalopathy likely 2/2 hypercapnia likely multifactorial iso medications, COPD exacerbation and ?questionable UTI resume home meds as tolerated Delirium precautions tsh, b12, folate WNL 08/28 Resolved #HAYDEN on CKD III IVF ongoing, will d/c when intake sufficient repeat BMP in am avoid nephrotoxic agents potentially prerenal iso relative hypotension Consult nephrology, Cr up to 3.62 repeat BMP 08/27 Creatinine 3.7--3.5 Nephrology service consulted Continue to monitor 09/07 crea 3.5 --> 2.6 coContinue to monitor closely 08/29 Creatinine 2.6--> 1.88 #Acute hypoxic hypercapnic resp failure #Acute COPD #Current tobacco use #?opioid overdose: low suspicion as patient did not respond much to narcan and still lethargic CXR with atelectatic changes CTX and doxy continued procal negative Decadron 10mg daily (allergic to preservative in solumedrol) pulmicort and performist bid LAMA/LABA/ICS at this time nicotine patch stable V/Q scan: no PE 08/27 Currently on 3 L of O2 via nasal cannula Continue with Zosyn, Decadron, Pulmicort, Perforomist, Anoro Ellipta Vancomycin p.o. for C. difficile prophylaxis 08/28 Continues to improve DC Decadron in light of clinical improvement and hypertension Continue with Zosyn, Pulmicort, Perforomist, and Ellipta Vancomycin p.o. for C. difficile prophylaxis 08/29 Improving, currently on room air Continue Zosyn, Pulmicort, Perforomist, Ellipta Vancomycin p.o. 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 daily added Continue usual metoprolol When IV hydralazine 08/29 Blood pressure still elevated associated with nausea Possible gabapentin withdrawal Gabapentin resumed, at 300 mg twice daily in light of kidney function Ativan converted to IV 0.5 every 6 hours Increased amlodipine to 5 mg p.o. daily Continue other blood pressure medications Continue as needed hydralazine Continue supportive care Monitor closely #Chronic diarrhea Recent C. difficile colitis, positive gene not toxin Continue Vancomycin 125 daily for prophylaxis 08/28 Positive nausea today Check KUB: Nonobstructive bowel gas pattern As needed Zofran Check stools stool panel PCR and C. difficile 08/29 resolved #Type 2 diabetes Not on meds A1C 6.1% #Peripheral artery disease On statin and Eliquis #Hyperlipidemia On statin #Chronic backache Continue gabapentin Hold off on oxycodone #Iron deficiency anemia B12 deficiency Hemoglobin 11.4 today--> 10.7 stable #Chronic leukocytosis likely iso chronic tobacco use peripheral smear ordered #Prolonged QTc will follow repeat EKG Avoid QT prolonging drugs QT 523--> 506 Monitor closely #hx of hypokalemia and hypomagnesia -- will follow labs DVT prophylaxis On Eliquis Disposition Telemetry Admission and Anticipated Discharge Date Admission Date: August 25, 2024 Subjective Follow-up for pneumonia, etc. Seen resting in bed, appears more comfortable than yesterday Still having some nausea No abdominal pain No headache, dizziness, chest pain, shortness of breath No other new symptoms Review of Systems Review of Systems: all noted and negative except for above Physical Exam Physical Exam: General- oriented x 3, not in distress, speaks in sentences with no effort or accessory muscle use Eyes- anicteric Neck- no JVD Lungs- clear breath sounds bilaterally, no rales/wheezes Heart- normal rate, regular rhythm; no murmurs Abdomen- normal bowel sounds, nondistended, soft, nontender Extremities- no pretibial edema, no calf tenderness Neuro- alert, oriented x 3; no gross focal neurologic deficits Skin- warm & dry Results & Data Results & Data Vital Signs (Past 12 Hours) Vital Signs Temp Pulse Pulse Resp BP Pulse Ox O2 Del Method 08/29/24 15:49 36.4 C L 69 18 161/78 H 94 Nasal Cannula 08/29/24 13:35 94 Nasal Cannula 08/29/24 13:35 86 L Room Air 08/29/24 11:35 36.5 C 77 20 150/73 H 93 Room Air 08/29/24 10:39 93 Room Air 08/29/24 08:19 Room Air 08/29/24 08:14 73 20 91 Room Air 08/29/24 07:47 68 20 182/65 H 94 Room Air 08/29/24 07:34 80 08/29/24 07:34 74 17 98 Nasal Cannula 08/29/24 05:48 175/84 H O2 Flow Rate 08/29/24 15:49 2 08/29/24 13:35 2 08/29/24 13:35 08/29/24 11:35 08/29/24 10:39 08/29/24 08:19 08/29/24 08:14 08/29/24 07:47 08/29/24 07:34 08/29/24 07:34 2 08/29/24 05:48 all noted and reviewed including below
[2024-08-30 06:11] LABS: Basophils # (auto) 0.04 K/uL (0.00-0.20); Basophils % (auto) 0.4 %; Eosinophils # (auto) 0.07 K/uL (0.00-0.50); Eosinophils % (auto) 0.7 %; Hematocrit (blood only) 34.3 % (37.0-47.0); Hemoglobin 11.5 g/dl (12.0-16.0); Immature Granulocytes # (auto) 0.09 K/uL (0.01-0.20); Immature Granulocytes % (auto) 0.9 %; Lymphocytes # (auto) 1.65 K/uL (1.20-3.40); Lymphocytes % (auto) 16.1 %; Mean Corpuscular Hgb Conc 33.5 g/dL (32.0-36.0); Mean Corpuscular Volume 104.3 fL (80.0-100.0); Mean Platelet Volume 10.4 fL (9.4-12.4); Monocytes # (auto) 0.83 K/uL (0.11-0.59); Monocytes % (auto) 8.1 %; Neutrophils # (auto) 7.54 K/uL (1.40-6.50); Neutrophils % (auto) 73.8 %; Platelet Count 218 K/uL (130-400); RDW Coefficient of Variation 13.1 % (11.5-14.5); Red Blood Count 3.29 M/uL (4.20-5.40); White Blood Count 10.22 K/ul (4.8-10.8)
[2024-08-30 06:26] LABS: BUN Creatinine Ratio 14.2 (10-20); Calcium 8.8 mg/dl (8.6-10.3); Creatinine Clr Calc Pharmacy 32.4 ml/min; Potassium 2.9 mmol/L (3.5-5.1)
[2024-08-30] MEDS: POTASSIUM CHLORIDE CRTAB 20 MEQ TABCR PO STA (08:29)
[2024-08-30] MEDS: POTASSIUM CHLORIDE CRTAB 20 MEQ TABCR PO ONE (09:37)
[2024-08-30] MEDS: LOSARTAN POTASSIUM 50 MG TAB PO SCH (09:51)
--- NOTE | 2024-08-30 10:12 | XRay Report ---
XR chest 1V portable CLINICAL HISTORY: ff up pneumonia COMPARISON STUDY: Chest radiograph August 27, 2024. FINDINGS: There is no pneumothorax. Small to moderate right and small left pleural effusions are pres ent. The right pleural effusion has mildly decreased in size since prior exam. Cardiomegaly is again noted. There are median sternotomy wires and mediastinal surgical clips. Interstitial thickening has slightly progressed. There is a possible 2.2 cm left upper lung opacity. Linear left basilar opacitie s favor atelectasis. Right basilar opacity persists. Old, healed proximal left humeral fracture. IMPRESSION: 1. Cardiomegaly with slight progression of interstitial pulmonary edema. 2. Small to moderate right and small left pleural effusions. Right basilar opacity could reflect pneu monia or atelectasis. Radiographic follow-up to ensure resolution is recommended. 3. Possible 2.2 cm left apical opacity. This is likely artifactual however a focus of pneumonia could appear similar. ACT 112: Negative or not required by law. Electronically signed by: Jose Dias M.D. 08/30/2024 10:10 AM
--- NOTE | 2024-08-30 16:04 | Hospitalist Progress Note ---
Date of Service August 30, 2024 Assessment & Plan (1) Altered mental status: Plan: (1) Encephalopathy: Plan: per Dr. Zurita' notes with addendum: Ms. Wang is a 68-year-old female with past medical history significant for type 2 diabetes, hyperlipidemia, COPD, CAD status post CABG, heart failure with reduced ejection fraction, paroxysmal atrial fibrillation, peripheral artery disease status post femoral-popliteal bypass surgery, hypertension, mitral valve disease, B12 deficiency, osteoporosis, backache, migraines, iron deficiency anemia, tobacco use use disorder, anxiety, who lives at home with her and ambulates with a cane was brought in because of lethargy and altered mental status. Initial concern for oxycodone overdose, however, patient not responsive to narcan. Improving with steroids (on Decadron 2/ reported benzyl alcohol allergy and patient cannot clarify) #Acute Metabolic Encephalopathy likely 2/2 hypercapnia likely multifactorial iso medications, COPD exacerbation and ?questionable UTI resume home meds as tolerated Delirium precautions tsh, b12, folate WNL 08/28 Resolved #HAYDEN on CKD III IVF ongoing, will d/c when intake sufficient repeat BMP in am avoid nephrotoxic agents potentially prerenal iso relative hypotension Consult nephrology, Cr up to 3.62 repeat BMP 08/27 Creatinine 3.7--3.5 Nephrology service consulted Continue to monitor 09/07 crea 3.5 --> 2.6 coContinue to monitor closely 08/29 Creatinine 2.6--> 1.88 08/30 crea 1.8 --> 1.4 monitor #Acute hypoxic hypercapnic resp failure #Acute COPD #Current tobacco use #?opioid overdose: low suspicion as patient did not respond much to narcan and still lethargic CXR with atelectatic changes CTX and doxy continued procal negative Decadron 10mg daily (allergic to preservative in solumedrol) pulmicort and performist bid LAMA/LABA/ICS at this time nicotine patch stable V/Q scan: no PE 08/27 Currently on 3 L of O2 via nasal cannula Continue with Zosyn, Decadron, Pulmicort, Perforomist, Anoro Ellipta Vancomycin p.o. for C. difficile prophylaxis 08/28 Continues to improve DC Decadron in light of clinical improvement and hypertension Continue with Zosyn, Pulmicort, Perforomist, and Ellipta Vancomycin p.o. for C. difficile prophylaxis 08/29 Improving, currently on room air Continue Deanne Morse Perforomist, Ellipta Vancomycin p.o. 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 daily added Continue usual metoprolol When IV hydralazine 08/29 Blood pressure still elevated associated with nausea Possible gabapentin withdrawal Gabapentin resumed, at 300 mg twice daily in light of kidney function Ativan converted to IV 0.5 every 6 hours Increased amlodipine to 5 mg p.o. daily Continue other blood pressure medications Continue as needed hydralazine Continue supportive care Monitor closely 08/30 Losartan resumed Continue the rest of medications Monitor BP #Chronic diarrhea Recent C. difficile colitis, positive gene not toxin Continue Vancomycin 125 daily for prophylaxis 08/28 Positive nausea today Check KUB: Nonobstructive bowel gas pattern As needed Zofran Check stools stool panel PCR and C. difficile 08/29 resolved 08/30 Resolved #Type 2 diabetes Not on meds A1C 6.1% #Peripheral artery disease On statin and Eliquis #Hyperlipidemia On statin #Chronic backache Continue gabapentin Hold off on oxycodone #Iron deficiency anemia B12 deficiency Hemoglobin 11.4 today--> 10.7 stable #Chronic leukocytosis likely iso chronic tobacco use peripheral smear ordered #Prolonged QTc will follow repeat EKG Avoid QT prolonging drugs QT 523--> 506 Monitor closely #hx of hypokalemia and hypomagnesia -- will follow labs DVT prophylaxis On Eliquis Disposition Telemetry Admission and Anticipated Discharge Date Admission Date: August 25, 2024 Subjective Follow-up for COPD exacerbation, pneumonia, HAYDEN, etc. Seen resting in bed, comfortable, not in distress Good spirits States she is starting to improve Nausea has resolved No headache, dizziness, chest pain, palpitations, shortness of breath No other new symptoms Review of Systems Review of Systems: all noted and negative except for above Physical Exam Physical Exam: General- oriented x 3, not in distress, speaks in sentences with no effort or accessory muscle use Eyes- anicteric Neck- no JVD Lungs- mild rales at the bases, no wheezing Heart- normal rate, regular rhythm; no murmurs Abdomen- normal bowel sounds, nondistended, soft, no crackles/wheezing Extremities- no pretibial edema, no calf tenderness Neuro- alert, oriented x 3; no gross focal neurologic deficits Skin- warm & dry Results & Data Results & Data Vital Signs (Past 12 Hours) Vital Signs Temp Pulse Resp BP Pulse Ox O2 Del Method O2 Flow Rate 08/30/24 15:30 91 08/30/24 15:18 36.6 C 79 18 142/72 H 92 Room Air 08/30/24 11:52 36.9 C 75 18 148/67 H 90 Room Air 08/30/24 08:17 Room Air 08/30/24 07:45 36.4 C L 66 18 180/85 H 90 Room Air 08/30/24 07:38 75 18 95 Nasal Cannula 1 all noted and reviewed including below
--- NOTE | 2024-08-30 18:09 | Nephrology Progress Note ---
Date of Service August 30, 2024 Assessment & Plan (1) HAYDEN (acute kidney injury): Plan: markedly mproving stage 3 nonoliguric HAYDEN from ATN which happened because of Severe Hypotension and Hypoxia that happened on 08/24/2024; hypotension followed by hypertensive urgency through 08/29. Creat went from 0.96 on Adx to 3.78 in 3 days. Given her extensive cardiac Dz as well as lung Disease and PVD she is very prone to develop ATN with Severe Hypotension and Hypoxia. Renal u/s unremarkable. CK 10. 08/25 UA had protein, blood and granular casts c/w ATN. persistent but improved blood protein in 08/27 UA adn casts resolved. -aldactone to remain on hold -had losartan this AM -cautiously optimistic no dialysis needed this admission; none needed so ar >>K 2.9 this am; had losartan as well as 40 mEq po K x 2 doses >> recheck BMP in am (2) Encephalopathy: Plan: Likely from Polypharmacy mainly Opioids. (3) Hypertensive urgency: Plan: improving today w/ SBP in 140-150s; HTN urgency in setting of recent NSTEMI/hypotension -losatan started back up today -spironolactone remains appropriately on hold -cont B atif Admission and Anticipated Discharge Date Admission Date: August 25, 2024 Subjective cardiology signed off > for OP f/u; ongoing 4-5 watery BM daily; eating, no sob, no edema Review of Systems 2 Review of Systems: All systems reviewed & are unremarkable except as noted in Subjective Physical Exam 2 Constitutional: well developed (on RA, maneuvers readily for exam), well nourished and cooperative; no acute distress Eyes: EOM intact bilaterally ENMT: Mouth: + dry oral mucous membranes Neck: no nuchal rigidity Respiratory: normal respiratory effort Auscultation: + diminished lung sounds and + crackles (R base) Cardiovascular: RRR, no murmur, no edema Gastrointestinal (Abdomen): Inspection/Auscultation: normal bowel sounds P ercussion/Palpation: abdomen soft; abdomen nontender Musculoskeletal: Extremities: strength 5/5 throughout Skin: no rashes, warm and dry Neurologic: acevedo, fluent speech, no tremor Results & Data Vital Signs (Past 12 Hours) Vital Signs Temp Pulse Resp BP Pulse Ox O2 Del Method O2 Flow Rate 08/30/24 15:30 91 08/30/24 15:18 36.6 C 79 18 142/72 H 92 Room Air 08/30/24 11:52 36.9 C 75 18 148/67 H 90 Room Air 08/30/24 08:17 Room Air 08/30/24 07:45 36.4 C L 66 18 180/85 H 90 Room Air 08/30/24 07:38 75 18 95 Nasal Cannula 1 Laboratory Results 08/30/24 05:35 08/30/24 05:35
[2024-08-31 04:40] LABS: BUN Creatinine Ratio 13.1 (10-20); Calcium 8.8 mg/dl (8.6-10.3); Creatinine Clr Calc Pharmacy 33.1 ml/min; Magnesium 1.6 mg/dl (1.7-2.4); Potassium 2.9 mmol/L (3.5-5.1)
[2024-08-31] MEDS: GABAPENTIN 300 MG CAP PO SCH (10:42)
--- NOTE | 2024-08-31 14:37 | Nephrology Progress Note ---
Date of Service August 31, 2024 Assessment & Plan (1) HAYDEN (acute kidney injury): Plan: markedly mproving stage 3 nonoliguric HAYDEN from ATN which happened because of Severe Hypotension and Hypoxia that happened on 08/24/2024; hypotension followed by hypertensive urgency through 08/29. Creat went from 0.96 on Adx to 3.78 in 3 days. Given her extensive cardiac Dz as well as lung Disease and PVD she is very prone to develop ATN with Severe Hypotension and Hypoxia. Renal u/s unremarkable. CK 10. 08/25 UA had protein, blood and granular casts c/w ATN. persistent but improved blood protein in 08/27 UA adn casts resolved. 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 (3) Hypertensive urgency: Plan: improving today w/ SBP in 140-160s; HTN urgency in setting of recent NSTEMI/hypotension > currently on imdur, toprol XL 50 mg AM/ 25 PM, amlodipine 5 mg daily, losartan 100 mg daily ->>increased amlodipine to 10 mg daily -also started spironolactone given recent VT and ongoing HTN low dose 12.5 mg daily -losartan started back up 08/31 -cont B atif Admission and Anticipated Discharge Date Admission Date: August 25, 2024 Subjective no acute interval events; eager for hospital d/c; 7 recorded BM yesterday; pt states has had chronic diarrhea x 40 years and this is no different than baseline; no focal numbness/weakness Review of Systems 2 Review of Systems: All systems reviewed & are unremarkable except as noted in Subjective Physical Exam 2 Constitutional: well developed (on RA, maneuvers readily for exam, amb w/o asst), well nourished and cooperative; no acute distress Eyes: EOM intact bilaterally ENMT: Mouth: + dry oral mucous membranes Neck: no nuchal rigidity Respiratory: normal respiratory effort Auscultation: + diminished lung sounds Cardiovascular: RRR, no murmur, no edema Gastrointestinal (Abdomen): Inspection/Auscultation: normal bowel sounds P ercussion/Palpation: abdomen soft; abdomen nontender Musculoskeletal: Extremities: strength 5/5 throughout Skin: no rashes, warm and dry Results & Data Vital Signs (Past 12 Hours) Vital Signs Temp Pulse Resp BP BP Pulse Ox O2 Del Method 08/31/24 11:12 36.8 C 73 18 157/75 H 93 Room Air 08/31/24 08:00 Room Air 08/31/24 07:39 36.7 C 77 18 177/79 H 91 Room Air 08/31/24 06:10 88 18 92 Room Air 08/31/24 03:28 36.6 C 76 19 158/75 H 90 Room Air Laboratory Results 08/30/24 05:35 08/31/24 03:51 mag 1.6
[2024-08-31] MEDS: SPIRONOLACTONE 12.5 MG TAB PO SCH (15:09)
[2024-08-31] MEDS: POTASSIUM CHLORIDE 40 MEQ in DEXTROSE 5% 1,000 ML IV SCH (16:32)
[2024-08-31] MEDS: POTASSIUM CHLORIDE CRTAB 20 MEQ TABCR PO SCH (16:34)
[2024-08-31] MEDS ORDERED: ISOSORBIDE MONO EXTENDED REL 30 MG TABCR PO ONE (16:49)
--- NOTE | 2024-08-31 17:09 | Hospitalist Progress Note ---
Date of Service August 31, 2024 delayed entry date of service noted above Assessment & Plan (1) Altered mental status: Plan: (1) Encephalopathy: Plan: per Dr. Zurita' notes with addendum: Ms. Wang is a 68-year-old female with past medical history significant for type 2 diabetes, hyperlipidemia, COPD, CAD status post CABG, heart failure with reduced ejection fraction, paroxysmal atrial fibrillation, peripheral artery disease status post femoral-popliteal bypass surgery, hypertension, mitral valve disease, B12 deficiency, osteoporosis, backache, migraines, iron deficiency anemia, tobacco use use disorder, anxiety, who lives at home with her and ambulates with a cane was brought in because of lethargy and altered mental status. Initial concern for oxycodone overdose, however, patient not responsive to narcan. Improving with steroids (on Decadron 2/ reported benzyl alcohol allergy and patient cannot clarify) #Acute Metabolic Encephalopathy likely 2/2 hypercapnia likely multifactorial iso medications, COPD exacerbation and ?questionable UTI resume home meds as tolerated Delirium precautions tsh, b12, folate WNL 08/28 Resolved #HAYDEN on CKD III IVF ongoing, will d/c when intake sufficient repeat BMP in am avoid nephrotoxic agents potentially prerenal iso relative hypotension Consult nephrology, Cr up to 3.62 repeat BMP 08/27 Creatinine 3.7--3.5 Nephrology service consulted Continue to monitor 09/07 crea 3.5 --> 2.6 coContinue to monitor closely 08/29 Creatinine 2.6--> 1.88 08/31 crea 1.8 --> 1.4--> 1.3 monitor #Acute hypoxic hypercapnic resp failure #Acute COPD #Current tobacco use #?opioid overdose: low suspicion as patient did not respond much to narcan and still lethargic CXR with atelectatic changes CTX and doxy continued procal negative Decadron 10mg daily (allergic to preservative in solumedrol) pulmicort and performist bid LAMA/LABA/ICS at this time nicotine patch stable V/Q scan: no PE 08/27 Currently on 3 L of O2 via nasal cannula Continue with Zosyn, Decadron, Pulmicort, Perforomist, Anoro Ellipta Vancomycin p.o. for C. difficile prophylaxis 08/28 Continues to improve DC Decadron in light of clinical improvement and hypertension Continue with Zosyn, Pulmicort, Perforomist, and Ellipta Vancomycin p.o. for C. difficile prophylaxis 08/29 Improving, currently on room air Continue Zosyn, Pulmicort, Perforomist, Ellipta Vancomycin p.o. per CT prophylaxis 08/30 Continues to improve clinically Continue Zosyn, Pulmicort, Perforomist, Ellipta Repeat chest x-ray: Possible small bilateral pleural effusions 08/31 respiratory status stable continue present regimen #NSTEMI II likely demand iso hypoxic CTM on tele, Cards following: conservative management at this time #HFmrEF 2/2 ischemic cardiomyopathy #PAF hold losartan continue BB continue eliquis Resume meds as able #Current hypotension #History hypertension hold antihypertensives, resume as appropriate encourage po as able 08/28 Blood pressure elevated Resumed Imdur 30 mg daily Amlodipine 2.5 mg p.o. daily added Continue usual metoprolol When IV hydralazine 08/29 Blood pressure still elevated associated with nausea Possible gabapentin withdrawal Gabapentin resumed, at 300 mg twice daily in light of kidney function Ativan converted to IV 0.5 every 6 hours Increased amlodipine to 5 mg p.o. daily Continue other blood pressure medications Continue as needed hydralazine Continue supportive care Monitor closely 08/30 Losartan resumed Continue the rest of medications Monitor BP 08/31 Amlodipine increased to BID Spironolactone added #Chronic diarrhea Recent C. difficile colitis, positive gene not toxin Continue Vancomycin 125 daily for prophylaxis 08/28 Positive nausea today Check KUB: Nonobstructive bowel gas pattern As needed Zofran Check stools stool panel PCR and C. difficile 08/29 resolved 08/30 Resolved #Type 2 diabetes Not on meds A1C 6.1% #Peripheral artery disease On statin and Eliquis #Hyperlipidemia On statin #Chronic backache Continue gabapentin Hold off on oxycodone #Iron deficiency anemia B12 deficiency Hemoglobin 11.4 today--> 10.7 stable #Chronic leukocytosis likely iso chronic tobacco use peripheral smear ordered #Prolonged QTc will follow repeat EKG Avoid QT prolonging drugs QT 523--> 506 Monitor closely #hx of hypokalemia and hypomagnesia -- will follow labs DVT prophylaxis On Eliquis Disposition Telemetry Admission and Anticipated Discharge Date Admission Date: August 25, 2024 Subjective seen resting in bed, comfortable states she feels improved today breathing is ok no abdominal pain no chest pain, dyspnea, palpitations, dizziness no other symptoms Review of Systems Review of Systems: all noted and negative except for above Physical Exam Physical Exam: all noted and negative except for above Results & Data Results & Data Vital Signs (Past 12 Hours) Vital Signs Temp Pulse Resp BP Pulse Ox O2 Del Method 08/31/24 14:56 36.5 C 84 18 196/92 H 95 Room Air 08/31/24 11:12 36.8 C 73 18 157/75 H 93 Room Air 08/31/24 08:00 Room Air 08/31/24 07:39 36.7 C 77 18 177/79 H 91 Room Air 08/31/24 06:10 88 18 92 Room Air all noted and reviewed including below
[2024-08-31] MEDS: amLODIPine BESYLATE 5 MG TAB PO SCH (18:37)
[2024-08-31 21:08] LABS: Calcium 8.5 mg/dl (8.6-10.3); Creatinine Clr Calc Pharmacy 29.8 ml/min; Potassium 3.1 mmol/L (3.5-5.1)
[2024-09-01 06:40] LABS: BUN Creatinine Ratio 10.1 (10-20); Calcium 8.6 mg/dl (8.6-10.3); Creatinine Clr Calc Pharmacy 33.8 ml/min; Magnesium 1.4 mg/dl (1.7-2.4); Potassium 3.6 mmol/L (3.5-5.1)
[2024-09-01] MEDS: MAGNESIUM SULFATE / D5W 1 GM/100 ML BAG IV SCH (08:50)
--- NOTE | 2024-09-01 11:37 | Nephrology Progress Note ---
Date of Service September 01, 2024 Assessment & Plan Admission and Anticipated Discharge Date Admission Date: August 25, 2024 Subjective Assessment & Plan (1) HAYDEN (acute kidney injury): Plan: markedly improving stage 3 nonoliguric HAYDEN from ATN which happened because of Severe Hypotension and Hypoxia that happened on 08/24/2024; hypotension followed by hypertensive urgency through 08/29. Creat went from 0.96 on Adx to 3.78 in 3 days. Given her extensive cardiac Dz as well as lung Disease and PVD she is very prone to develop ATN with Severe Hypotension and Hypoxia. Renal u/s unremarkable. CK 10. 08/25 UA had protein, blood and granular casts c/w ATN. persistent but improved blood protein in 08/27 UA adn casts resolved. has diarrhea and with that K dropped to 2.9. However Much less diarrhea now. D/c Iv fluids. Now better but still low. also low mag. Written for 2 gm iv already so also raise po dose to 400 bid. got iv mag + Po kcl 40 qid. Daily renal panel and CBC. lower kcl to 40 tid. (2) Encephalopathy: Plan: Likely from Polypharmacy mainly Opioids. (3) Hypertensive urgency: Plan: improving today w/ SBP in 140-160s; HTN urgency in setting of recent NSTEMI/hypotension currently on imdur, toprol XL 50 mg AM/ 25 PM, amlodipine 5 mg daily, losartan 100 mg daily increased amlodipine to 10 mg daily Raise Aldactone dose to 25 daily. Subjective no acute interval events. wants to go home. less diarrhea now. no focal numbness/weakness Review of Systems Review of Systems: All systems reviewed & are unremarkable except as noted in Subjective Physical Exam Constitutional: well developed (on RA, maneuvers readily for exam, amb w/o asst), well nourished and cooperative; no acute distress Eyes: EOM intact bilaterally ENMT: Mouth: + dry oral mucous membranes Neck: no nuchal rigidity Respiratory: normal respiratory effort Auscultation: + diminished lung sounds Cardiovascular: RRR, no murmur, no edema Gastrointestinal (Abdomen): Inspection/Auscultation: normal bowel sounds Percussion/Palpation: abdomen soft; abdomen nontender Musculoskeletal: Extremities: strength 5/5 throughout Skin: no rashes, warm and dry Results & Data Vital Signs (Past 12 Hours) Vital Signs Temp Pulse Pulse Resp BP BP Pulse Ox 09/01/24 11:13 36.6 C 74 18 159/68 H 95 09/01/24 09:27 159/54 H 09/01/24 08:00 64 09/01/24 07:51 36.9 C 81 18 193/95 H 97 09/01/24 07:41 09/01/24 07:10 73 17 97 09/01/24 03:10 36.3 C L 67 18 164/76 H 94 09/01/24 01:20 36.3 C L 84 16 184/83 H 08/31/24 23:52 36.5 C 76 20 162/72 H 94 O2 Del Method 09/01/24 11:13 Room Air 09/01/24 09:27 09/01/24 08:00 09/01/24 07:51 Room Air 09/01/24 07:41 Room Air 09/01/24 07:10 Room Air 09/01/24 03:10 Room Air 09/01/24 01:20 Room Air 08/31/24 23:52 Room Air
--- NOTE | 2024-09-01 11:43 | Hospitalist Progress Note ---
Date of Service September 01, 2024 Assessment & Plan (1) Altered mental status: Plan: (1) Altered mental status: Plan: (1) Encephalopathy: Plan: per Dr. Zurita' notes with addendum: Ms. Wang is a 68-year-old female with past medical history significant for type 2 diabetes, hyperlipidemia, COPD, CAD status post CABG, heart failure with reduced ejection fraction, paroxysmal atrial fibrillation, peripheral artery disease status post femoral-popliteal bypass surgery, hypertension, mitral valve disease, B12 deficiency, osteoporosis, backache, migraines, iron deficiency anemia, tobacco use use disorder, anxiety, who lives at home with her and ambulates with a cane was brought in because of lethargy and altered mental status. Initial concern for oxycodone overdose, however, patient not responsive to narcan. Improving with steroids (on Decadron 2/ reported benzyl alcohol allergy and patient cannot clarify) #Acute Metabolic Encephalopathy likely 2/2 hypercapnia likely multifactorial iso medications, COPD exacerbation and ?questionable UTI resume home meds as tolerated Delirium precautions tsh, b12, folate WNL 09/01 Resolved #HAYDEN on CKD III IVF ongoing, will d/c when intake sufficient repeat BMP in am avoid nephrotoxic agents potentially prerenal iso relative hypotension Consult nephrology, Cr up to 3.62 repeat BMP 08/27 Creatinine 3.7--3.5 Nephrology service consulted Continue to monitor 09/07 crea 3.5 --> 2.6 coContinue to monitor closely 08/29 Creatinine 2.6--> 1.88 08/31 crea 1.8 --> 1.4--> 1.3 monitor 09/01 crea further improving to 1.39 #Acute hypoxic hypercapnic resp failure #Acute COPD #Current tobacco use #?opioid overdose: low suspicion as patient did not respond much to narcan and still lethargic CXR with atelectatic changes CTX and doxy continued procal negative Decadron 10mg daily (allergic to preservative in solumedrol) pulmicort and performist bid LAMA/LABA/ICS at this time nicotine patch stable V/Q scan: no PE 08/27 Currently on 3 L of O2 via nasal cannula Continue with Zosyn, Decadron, Pulmicort, Perforomist, Anoro Ellipta Vancomycin p.o. for C. difficile prophylaxis 08/28 Continues to improve DC Decadron in light of clinical improvement and hypertension Continue with Zosyn, Pulmicort, Perforomist, and Ellipta Vancomycin p.o. for C. difficile prophylaxis 08/29 Improving, currently on room air Continue Zosyn, Pulmicort, Perforomist, Ellipta Vancomycin p.o. 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 daily added Continue usual metoprolol When IV hydralazine 08/29 Blood pressure still elevated associated with nausea Possible gabapentin withdrawal Gabapentin resumed, at 300 mg twice daily in light of kidney function Ativan converted to IV 0.5 every 6 hours Increased amlodipine to 5 mg p.o. daily Continue other blood pressure medications Continue as needed hydralazine Continue supportive care Monitor closely 08/30 Losartan resumed Continue the rest of medications Monitor BP 08/31 Amlodipine increased to BID Spironolactone added 09/01 Spironolactone increased monitor closely #Chronic diarrhea Recent C. difficile colitis, positive gene not toxin Continue Vancomycin 125 daily for prophylaxis 08/28 Positive nausea today Check KUB: Nonobstructive bowel gas pattern As needed Zofran Check stools stool panel PCR and C. difficile 08/29 resolved 08/30 Resolved #Type 2 diabetes Not on meds A1C 6.1% #Peripheral artery disease On statin and Eliquis #Hyperlipidemia On statin #Chronic backache Continue gabapentin Hold off on oxycodone #Iron deficiency anemia B12 deficiency Hemoglobin 11.4 today--> 10.7 stable #Chronic leukocytosis likely iso chronic tobacco use peripheral smear ordered #Prolonged QTc will follow repeat EKG Avoid QT prolonging drugs QT 523--> 506 Monitor closely 09/01 repeat ekg today #hx of hypokalemia and hypomagnesia -- will follow labs DVT prophylaxis On Eliquis Disposition Telemetry Admission and Anticipated Discharge Date Admission Date: August 25, 2024 Subjective ff up for pneumonia, HAYDEN, hypertension, etc seen resting in bed, comfortable feels fine overall no chest pain, dyspnea, palpitations, dizziness reports 5/10 frontal headache, same as past few days, no neurologic symptoms no other symptoms Review of Systems Review of Systems: all noted and negative except for above Physical Exam Physical Exam: General- oriented x 3, not in distress, speaks in sentences with no effort or accessory muscle use Eyes- anicteric Neck- no JVD Lungs- clear breath sounds bilaterally, no crackles Heart- normal rate, regular rhythm; no murmurs Abdomen- normal bowel sounds, nondistended, soft, nontender Extremities- no pretibial edema, no calf tenderness Neuro- alert, oriented x 3; no gross focal neurologic deficits Skin- warm & dry Results & Data Results & Data Vital Signs (Past 12 Hours) Vital Signs Temp Pulse Pulse Resp BP BP Pulse Ox 09/01/24 11:13 36.6 C 74 18 159/68 H 95 09/01/24 09:27 159/54 H 09/01/24 08:00 64 09/01/24 07:51 36.9 C 81 18 193/95 H 97 09/01/24 07:41 09/01/24 07:10 73 17 97 09/01/24 03:10 36.3 C L 67 18 164/76 H 94 09/01/24 01:20 36.3 C L 84 16 184/83 H 08/31/24 23:52 36.5 C 76 20 162/72 H 94 O2 Del Method 09/01/24 11:13 Room Air 09/01/24 09:27 09/01/24 08:00 09/01/24 07:51 Room Air 09/01/24 07:41 Room Air 09/01/24 07:10 Room Air 09/01/24 03:10 Room Air 09/01/24 01:20 Room Air 08/31/24 23:52 Room Air all noted and reviewed including below
[2024-09-01] MEDS: SPIRONOLACTONE 25 MG TAB PO SCH (12:47)
[2024-09-01] MEDS: MAGNESIUM OXIDE 400 MG TAB PO SCH (12:47)
[2024-09-01] MEDS: POTASSIUM CHLORIDE CRTAB 20 MEQ TABCR PO SCH (13:44)
[2024-09-01] MEDS: hydrALAZINE HCL 20 MG/ML VIAL IV ONE (20:35)
--- NOTE | 2024-09-01 22:05 | CT Scan Report ---
Exam(s): CT HEAD Without Contrast EXAM: CT Head Without Intravenous Contrast CLINICAL HISTORY: Reason for exam: headache, facial numbness. TECHNIQUE: Axial computed tomography images of the head/brain without intravenous contrast. CTDI is 35.72 mGy and DLP is 547.75 mGy-cm. Automated exposure control was utilized for the study. A dose lowering technique was utilized adhering to the principles of ALARA. COMPARISON: Prior head CT from August 28, 2024. FINDINGS: Brain: Unremarkable. No hemorrhage. Mild nonspecific white matter changes. No edema. Ventricles: Unremarkable. No ventriculomegaly. Bones/joints: Unremarkable. No acute fracture. Soft tissues: Unremarkable. Sinuses: Unremarkable as visualized. No acute sinusitis. Mastoid air cells: There is a left mastoid and Douglas fusion. IMPRESSION: No evidence of acute intracranial pathology. Left mastoid and middle ear effusion. Electronically signed by: Mally Mata MD 09/01/24 22:03 PM
[2024-09-02 05:07] LABS: BUN Creatinine Ratio 12.8 (10-20); Creatinine Clr Calc Pharmacy 30.1 ml/min; Potassium 4.7 mmol/L (3.5-5.1)
[2024-09-02 10:10] LABS: Magnesium 1.9 mg/dl (1.7-2.4)
--- NOTE | 2024-09-02 11:13 | Nephrology Progress Note ---
Date of Service September 02, 2024 Assessment & Plan Admission and Anticipated Discharge Date Admission Date: August 25, 2024 Subjective Assessment & Plan (1) HAYDEN (acute kidney injury): Plan: markedly improving stage 3 nonoliguric HAYDEN from ATN which happened because of Severe Hypotension and Hypoxia that happened on 08/24/2024; hypotension followed by hypertensive urgency through 08/29. Creat went from 0.96 on Adx to 3.78 in 3 days. Given her extensive cardiac Dz as well as lung Disease and PVD she is very prone to develop ATN with Severe Hypotension and Hypoxia. Renal u/s unremarkable. CK 10. 08/25 UA had protein, blood and granular casts c/w ATN. persistent but improved blood protein in 08/27 UA adn casts resolved. has diarrhea and with that K dropped to 2.9. Now normal fate massive Dose given. Creat went up a bit . Given 1/2 NS 1000 ml total today However Much less diarrhea now. mag Now better at 1.9 so Continue po dose to 400 bid. got iv mag + Po kcl 40 qid. Daily renal panel and CBC. K is now 4.7 so big rise with combo Aldactone and kcl. Lower kcl to 20 bid. (2) Encephalopathy: Plan: Likely from Polypharmacy mainly Opioids. (3) Hypertensive urgency: Plan: improving today w/ SBP in 140-160s; HTN urgency in setting of recent NSTEMI/hypotension currently on imdur, toprol XL 50 mg AM/ 25 PM, amlodipine 5 mg daily, losartan 100 mg daily increased amlodipine to 10 mg daily + Aldactone 25 daily. Already got that. will hold that now ( already got AM 09/02 dose) and decide absed on Labs tomorrow. Subjective no acute interval events. wants to go home. less diarrhea now. No focal numbness/weakness Review of Systems Review of Systems: All systems reviewed & are unremarkable except as noted in Subjective Physical Exam Constitutional: well developed (on RA, maneuvers readily for exam, amb w/o asst), well nourished and cooperative; no acute distress Eyes: EOM intact bilaterally ENMT: Mouth: + dry oral mucous membranes Neck: no nuchal rigidity Respiratory: normal respiratory effort Auscultation: + diminished lung sounds Cardiovascular: RRR, no murmur, no edema Gastrointestinal (Abdomen): Inspection/Auscultation: normal bowel sounds Percussion/Palpation: abdomen soft; abdomen nontender Musculoskeletal: Extremities: strength 5/5 throughout Skin: no rashes, warm and dry Results & Data Vital Signs (Past 12 Hours) Vital Signs Temp Pulse Pulse Resp BP Pulse Ox O2 Del Method 09/02/24 10:35 36.6 C 81 18 159/70 H 93 Room Air 09/02/24 08:30 Room Air 09/02/24 08:14 81 09/02/24 07:21 36.5 C 69 18 174/94 H 94 Room Air 09/02/24 07:04 82 16 96 Room Air 09/02/24 03:55 36.7 C 80 17 168/75 H 97 Room Air 09/02/24 00:04 165/72 H 09/02/24 00:01 83 09/01/24 23:23 36.7 C 84 18 180/74 H 95 Room Air
[2024-09-02] MEDS: LORazepam 1 MG TAB PO PRN (12:22)
[2024-09-02] MEDS: SODIUM CHLORIDE 0.45 % 1,000 ML IV SCH (12:26)
--- NOTE | 2024-09-02 18:13 | Hospitalist Progress Note ---
Date of Service September 02, 2024 Assessment & Plan (1) Encephalopathy: Plan: (1) Altered mental status: Plan: (1) Altered mental status: Plan: (1) Encephalopathy: Plan: per Dr. Zurita' notes with addendum: Ms. Wang is a 68-year-old female with past medical history significant for type 2 diabetes, hyperlipidemia, COPD, CAD status post CABG, heart failure with re duced ejection fraction, paroxysmal atrial fibrillation, peripheral artery disease status post femoral-popliteal bypass surgery, hypertension, mitral valve disease, B12 deficiency, osteoporosis, backache, migraines, iron deficiency anemia, tobacco use use disorder, anxiety, who lives at home with her and ambulates with a cane was brought in because of lethargy and altered mental status. Initial concern for oxycodone overdose, however, patient not responsive to narcan. Improving with steroids (on Decadron 2/2 reported benzyl alcohol allergy and patient cannot clarify) #Acute Metabolic Encephalopathy likely 2/2 hypercapnia likely multifactorial iso medications, COPD exacerbation and ?questionable UTI Resolved #HAYDEN on CKD III potentially prerenal iso relative hypotension Consult nephrology, Cr up to 3.62 gradually improved to 1.3 IV fluids restarted as crea increased #Acute hypoxic hypercapnic resp failure #Acute COPD #Current tobacco use #?opioid overdose: low suspicion as patient did not respond much to narcan and still lethargic CXR with atelectatic changes CTX and doxy continued procal negative Decadron 10mg daily (allergic to preservative in solumedrol) pulmicort and performist bid LAMA/LABA/ICS at this time nicotine patch stable V/Q scan: no PE given Zosyn, Decadron, Pulmicort, Perforomist, Anoro Ellipta Vancomycin p.o. for C. difficile prophylaxis weaned off O2 completed Zosyn Day 7 now on Spironolactone, will help with pleural effusion #NSTEMI II likely demand iso hypoxic CTM on tele, Cards following: conservative management at this time #HFmrEF 2/2 ischemic cardiomyopathy #PAF continue eliquis Spironolactone started by Nephro #Current hypotension #History hypertension initially hypotensive patient's BP now uncontrolled patient reports BP has been uncontrolled at home as well Amlodipine added Spironolactone added #Chronic diarrhea Recent C. difficile colitis, positive gene not toxin Continue Vancomycin 125 daily for prophylaxis 08/28 Positive nausea today Check KUB: Nonobstructive bowel gas pattern As needed Zofran Check stools stool panel PCR and C. difficile 08/29 resolved 08/30 Resolved #Type 2 diabetes Not on meds A1C 6.1% #Peripheral artery disease On statin and Eliquis #Hyperlipidemia On statin #Chronic backache Continue gabapentin Hold off on oxycodone #Iron deficiency anemia B12 deficiency Hemoglobin 11.4 today--> 10.7 stable #Chronic leukocytosis likely iso chronic tobacco use peripheral smear ordered #Prolonged QTc will follow repeat EKG Avoid QT prolonging drugs QT 523--> 506--> 513 Monitor closely #hx of hypokalemia and hypomagnesia -- will follow labs DVT prophylaxis On Eliquis Disposition pending PT/OT eval patient would prefer to return home Admission and Anticipated Discharge Date Admission Date: August 25, 2024 Subjective Seen resting in bed, comfortable, not in distress States she feels that she is improving gradually taper a day No headache today Was reporting some left-sided facial twitching yesterday, has resolved since No other new neurologic symptoms Denies cough, shortness of breath, chest pain, palpitations, dizziness No other new symptoms Review of Systems Review of Systems: all noted and negative except for above Physical Exam Physical Exam: General- oriented x 3, not in distress, speaks in sentences with no effort or accessory muscle use Eyes- anicteric Neck- no JVD Lungs- clear breath sounds bilaterally, no crackles/wheezing Heart- normal rate, regular rhythm; no murmurs Abdomen- normal bowel sounds, nondistended, soft, no tenderness Extremities- no pretibial edema, no calf tenderness Neuro- alert, oriented x 3; no gross focal neurologic deficits Skin- warm & dry Results & Data Results & Data Vital Signs (Past 12 Hours) Vital Signs Temp Pulse Pulse Resp BP Pulse Ox O2 Del Method 09/02/24 16:38 174/76 H 09/02/24 15:42 80 09/02/24 15:35 36.4 C L 84 18 184/77 H 94 Room Air 09/02/24 10:35 36.6 C 81 18 159/70 H 93 Room Air 09/02/24 08:30 Room Air 09/02/24 08:14 81 09/02/24 07:21 36.5 C 69 18 174/94 H 94 Room Air 09/02/24 07:04 82 16 96 Room Air all noted and reviewed including below
[2024-09-02] MEDS: POTASSIUM CHLORIDE CRTAB 20 MEQ TABCR PO SCH (20:30)
[2024-09-03 08:00] LABS: BUN Creatinine Ratio 13.3 (10-20); Calcium 8.8 mg/dl (8.6-10.3); Creatinine Clr Calc Pharmacy 38.9 ml/min; Potassium 3.7 mmol/L (3.5-5.1)
[2024-09-03] MEDS: ISOSORBIDE MONO EXTENDED REL 30 MG TABCR PO SCH (09:18)
[2024-09-03] MEDS: SPIRONOLACTONE 25 MG TAB PO SCH (16:30)
--- NOTE | 2024-09-03 16:32 | Hospitalist Progress Note ---
Date of Service September 03, 2024 Assessment & Plan (1) Encephalopathy: Plan: (1) Altered mental status: Plan: (1) Altered mental status: Plan: (1) Encephalopathy: Plan: per previous hospitalist with addendum: Ms. Wang is a 68-year-old female with past medical history significant for type 2 diabetes, hyperlipidemia, COPD, CAD status post CABG, heart failure with reduced ejection fraction, paroxysmal atrial fibrillation, peripheral artery disease status post femoral-popliteal bypass surgery, hypertension, mitral valve disease, B12 deficiency, osteoporosis, backache, migraines, iron deficiency anemia, tobacco use use disorder, anxiety, who lives at home with her and ambulates with a cane was brought in because of lethargy and altered mental status. Initial concern for oxycodone overdose, however, patient not responsive to narcan. Improving with steroids (on Decadron 2/2 reported benzyl alcohol allergy and patient cannot clarify) #Acute Metabolic Encephalopathy likely 2/2 hypercapnia likely multifactorial iso medications, COPD exacerbation and ?questionable UTI Resolved #HAYDEN on CKD III potentially prerenal iso relative hypotension Consulted nephrology, Cr up to 3.62 gradually improved to 1.2 #Acute hypoxic hypercapnic resp failure #Acute COPD #Current tobacco use #?opioid overdose: low suspicion as patient did not respond much to narcan and still lethargic CXR with atelectatic changes CTX and doxy continued procal negative Decadron 10mg daily (allergic to preservative in solumedrol) pulmicort and performist bid LAMA/LABA/ICS at this time nicotine patch stable V/Q scan: no PE given Zosyn, Decadron, Pulmicort, Perforomist, Anoro Ellipta Vancomycin p.o. for C. difficile prophylaxis weaned off O2 completed Zosyn Day 7 now on Spironolactone, will help with pleural effusion CXR - 1 . Cardiomegaly with slight progression of interstitial pulmonary edema. 2. Small to moderate right and small left pleural effusions. Right basilar opacity could reflect pneumonia or atelectasis. Radiographic follow-up to ensure resolution is recommended. 3. Possible 2.2 cm left apical opacity. This is likely artifactual however a focus of pneumonia could appear similar. #NSTEMI II likely demand iso hypoxic CTM on tele, Cards following: conservative management at this time #HFmrEF 2/2 ischemic cardiomyopathy #PAF continue eliquis Spironolactone started by Nephro #Hypertension initially hypotensive then patient's BP more difficult to control, elevated patient reports BP has been uncontrolled at home as well - now BP improved Amlodipine added Spironolactone added Imdur dose increased also on metoprolol #Chronic diarrhea Recent C. difficile colitis, positive gene not toxin Continue Vancomycin 125 daily for prophylaxis 08/28 Positive nausea today Check KUB: Nonobstructive bowel gas pattern As needed Zofran Check stools stool panel PCR and C. difficile 08/29 resolved 08/30 Resolved #Type 2 diabetes Not on meds A1C 6.1% #Peripheral artery disease On statin and Eliquis #Hyperlipidemia On statin #Chronic backache Continue gabapentin Hold off on oxycodone #Iron deficiency anemia B12 deficiency Hemoglobin stable #Chronic leukocytosis likely iso chronic tobacco use peripheral smear ordered #Prolonged QTc will follow repeat EKG Avoid QT prolonging drugs QT 523--> 506--> 513 Monitor closely #hx of hypokalemia and hypomagnesia -- will follow labs, replete and monitor DVT prophylaxis On Eliquis Disposition pending PT/OT eval patient would prefer to return home Admission and Anticipated Discharge Date Admission Date: August 25, 2024 Subjective Pt seen in follow up Seen sitting up in bed, comfortable, not in distress States she feels improved No headache today Denies cough, shortness of breath, chest pain, palpitations, dizziness No other new symptoms Review of Systems Review of Systems: All systems reviewed & are unremarkable except as noted in Subjective Physical Exam Physical Exam: General- oriented x 3, not in distress, speaks in sentences with no effort or accessory muscle use Eyes- anicteric Neck- no JVD Lungs- clear breath sounds bilaterally, no crackles/wheezing Heart- normal rate, regular rhythm; no murmurs Abdomen- normal bowel sounds, nondistended, soft, no tenderness Extremities- no pretibial edema, no calf tenderness Neuro- alert, oriented x 3; no gross focal neurologic deficits Skin- warm & dry Results & Data Results & Data Vital Signs (Past 12 Hours) Vital Signs Temp Pulse Pulse Resp BP Pulse Ox O2 Del Method 09/03/24 15:15 36.6 C 66 19 161/66 H 92 Room Air 09/03/24 11:04 36.8 C 70 18 142/71 H 92 Room Air 09/03/24 08:00 Room Air 09/03/24 07:35 89 09/03/24 07:27 36.6 C 77 18 179/84 H 93 Room Air 09/03/24 07:14 76 16 96 Room Air Laboratory Results 09/03/24 Range/Units 07:05 Sodium 141 (136-145) mmol/L Potassium 3.7 D (3.5-5.1) mmol/L Chloride 111 H (98-107) mmol/L Carbon Dioxide 22 (21-32) mmol/L Anion Gap 8 (3-11) BUN 16 (6-23) mg/dl Creatinine 1.20 D (0.6-1.2) mg/dl Est Cr Clr Drug Dosing 38.9 ml/min eGFR 49.00 BUN/Creatinine Ratio 13.3 (10-20) Glucose 110 H (70-99(Fasting)) mg/dl Calcium 8.8 (8.6-10.3) mg/dl Medications Administered Current Inpatient Medications Acetaminophen (Acetaminophen 325 Mg Tab) 650 mg PO QID PRN PRN Reason: pain/fever Stop: 09/27/24 04:06 Last Admin: 09/01/24 19:44 Dose: 650 mg Albuterol (Albuterol Hfa 8 Gm Inhaler) 2 puffs INH Q4H PRN PRN Reason: sob Stop: 09/24/24 04:11 Albuterol (Albut/Ipratrop 3mg/0.5mg Neb 3 Ml Vial) 3 ml NEB Q6R PRN; Protocol PRN Reason: Shortness Of Breath Or Wheezing Stop: 09/24/24 13:44 Amlodipine Besylate (Amlodipine Besylate 5 Mg Tab) 5 mg PO BID [facility] Stop: 09/30/24 20:59 Last Admin: 09/03/24 09:18 Dose: 5 mg Apixaban (Apixaban 5 Mg Tablet) 5 mg PO BID [facility] Stop: 09/24/24 08:59 Last Admin: 09/03/24 09:18 Dose: 5 mg Budesonide (Budesonide 0.5 Mg/2 Ml Vial (Pulmicort)) 0.5 mg NEB BIDR [facility] Stop: 09/24/24 18:59 Last Admin: 09/03/24 07:14 Dose: 0.5 mg Calcitonin Bowman (Calcitonin Bowman Na 200 Iu/Ac 3.7 Ml Btl) 1 sprays NA DAILY [facility] Stop: 09/24/24 08:59 Last Admin: 09/03/24 09:20 Dose: 1 sprays Wise Syrup (Wise Syrup 5 Ml Udp) 5 ml PO DAILY [facility] Stop: 09/05/24 08:59 Last Admin: 09/03/24 09:21 Dose: 5 ml Fluticasone Propionate (Fluticasone Propionate Na Spr 16 Gm Btl) 1 sprays NA BID [facility] Stop: 09/24/24 08:59 Last Admin: 09/03/24 09:21 Dose: 1 sprays Formoterol Fumarate (Formoterol 20 Mcg/2 Ml Vial) 20 mcg NEB BIDR [facility] Stop: 09/24/24 08:59 Last Admin: 09/03/24 07:14 Dose: 20 mcg Gabapentin (Gabapentin 300 Mg Cap) 300 mg PO TID [facility] Stop: 09/30/24 08:59 Last Admin: 09/03/24 14:12 Dose: 300 mg Hydralazine HCl (Hydralazine Hcl 20 Mg/Ml Vial) 5 mg IV Q6H PRN PRN Reason: systolic bp > 160 Stop: 09/27/24 08:20 Last Admin: 09/02/24 21:57 Dose: 5 mg Isosorbide Mononitrate (Isosorbide Clare Extended Rel 30 Mg Tabcr) 45 mg PO DAILY [facility] Stop: 10/03/24 08:59 Last Admin: 09/03/24 09:18 Dose: 45 mg Lactobacillus Acidophilus (Advanced Probiotic 625 Mg Capsule) 1,250 mg PO DAILY [facility] Stop: 09/26/24 08:59 Last Admin: 09/03/24 09:18 Dose: 1,250 mg Levalbuterol HCl (Levalbuterol 1.25 Mg/3 Ml Neb) 1.25 mg NEB Q4H PRN PRN Reason: Shortness Of Breath Or Wheezing Stop: 09/24/24 07:09 Lorazepam (Lorazepam 1 Mg Tab) 1 mg PO Q6H PRN PRN Reason: Anxiety Stop: 10/02/24 11:50 Last Admin: 09/03/24 09:27 Dose: 1 mg Losartan Potassium (Losartan Potassium 50 Mg Tab) 100 mg PO DAILY [facility] Stop: 09/29/24 08:59 Last Admin: 09/03/24 09:19 Dose: 100 mg Magnesium Oxide (Magnesium Oxide 400 Mg Tab) 400 mg PO BID [facility] Stop: 10/01/24 11:59 Last Admin: 09/03/24 09:19 Dose: 400 mg Metoprolol Succinate (Metoprolol Succ 50mg Ext Rel Tab) 50 mg PO DAILY [facility] Stop: 09/24/24 08:59 Last Admin: 09/03/24 09:19 Dose: 50 mg Metoprolol Succinate (Metoprolol Succ 25mg Ext Rel Tab) 25 mg PO QPM [facility] Stop: 09/26/24 20:59 Last Admin: 09/02/24 18:04 Dose: 25 mg Miconazole Nitrate (Miconazole Nitrate-7 (100 Mg Ea Supp) Box) 1 supp PV HS [facility] Stop: 09/03/24 20:59 Last Admin: 09/02/24 20:30 Dose: Not Given Miscellaneous (Remove Nicoderm Patch) 1 each N/A DAILY@0859 [facility] Stop: 09/25/24 08:58 Last Admin: 09/03/24 09:20 Dose: 1 each Nicotine (Nicotine 21 Mg/24 Hr Tdsy) 1 patch TD QAM [facility] Stop: 09/24/24 04:49 Last Admin: 09/03/24 09:19 Dose: 1 patch Ondansetron HCl (Ondansetron Inj 2 Mg/Ml 2 Ml Vial) 4 mg IV Q6H PRN PRN Reason: Nausea And Vomiting Stop: 09/27/24 08:18 Last Admin: 08/29/24 05:53 Dose: 4 mg Pantoprazole Sodium (Pantoprazole 40 Mg Tab) 40 mg PO DAILY [facility] Stop: 09/24/24 08:59 Last Admin: 09/03/24 09:20 Dose: 40 mg Potassium Chloride (Potassium Chloride Crtab 20 Meq Tabcr) 20 meq PO BID [facility] Stop: 10/02/24 20:59 Last Admin: 09/03/24 09:28 Dose: 20 meq Pravastatin Sodium (Pravastatin Sod 40 Mg Tab) 40 mg PO DAILY [facility] Stop: 09/24/24 08:59 Last Admin: 09/03/24 09:20 Dose: 40 mg Spironolactone (Spironolactone 25 Mg Tab) 25 mg PO QAM [facility] Stop: 10/03/24 15:29 Umeclidinium/Vilanterol (Umeclidinium/Vilanterol 62.5/25mcg 7 Puffs/Inhaler) 1 puffs INH DAILY [facility] Stop: 09/24/24 08:59 Last Admin: 09/03/24 09:21 Dose: 1 puffs Vancomycin HCl (Vancomycin Hcl 125 Mg/2.5ml Soln) 125 mg PO DAILY [facility] Stop: 09/05/24 08:59 Last Admin: 09/03/24 09:28 Dose: 125 mg
--- NOTE | 2024-09-03 18:23 | Nephrology Progress Note ---
Date of Service September 03, 2024 Assessment & Plan (1) Hypertensive urgency: Plan: improving today w/ SBP in 150-160s; HTN urgency in setting of recent NSTEMI/hypotension > currently on imdur, toprol XL 50 mg AM/ 25 PM, amlodipine 5 mg bid, losartan 100 mg daily -also started spironolactone given recent [place] and ongoing HTN 25 mg daily -losartan started back up 08/31 -cont B atif (2) HAYDEN (acute kidney injury): Plan: markedly mproving stage 3 nonoliguric HAYDEN from ATN which happened because of Severe Hypotension and Hypoxia that happened on 08/24/2024; hypotension followed by hypertensive urgency through 08/29. Creat went from 0.96 on Adx to 3.78 in 3 days. today it's 1.2. Given her extensive cardiac Dz as well as lung Disease and PVD she is very prone to develop ATN with Severe Hypotension and Hypoxia. Renal u/s unremarkable. CK 10. 08/25 UA had protein, blood and granular casts c/w ATN. persistent but improved blood protein in 08/27 UA and casts resolved. >sbp rnning 150-160s past 24 hrs -cont metopfolol, amlodipine, losartan >> I started spironolactone her her 09/01 25 mg daily; she'd had lower 12.5 mg doses earlier in week >remains on high dose K supplements >>she will need Nephro hosp d/c appt w/ Dr Coreas after d/c care coordinated w/ Dr Pérez re med dosing, focus on BP; we are in agreement (3) Encephalopathy: Plan: Likely from Polypharmacy mainly Opioids. Admission and Anticipated Discharge Date Admission Date: August 25, 2024 Subjective no acute interval events clinically. noting some R pedal edema > new for her. no sob; no n/v; diarrhea unchanged. pt worries about how she'll navigate electrolye issues at d/c Review of Systems 2 Review of Systems: All systems reviewed & are unremarkable except as noted in Subjective Physical Exam 2 Constitutional: well developed (on RA, maneuvers readily for exam, amb w/o asst), well nourished and cooperative; no acute distress Eyes: EOM intact bilaterally ENMT: Mouth: + dry oral mucous membranes Neck: no nuchal rigidity Respiratory: normal respiratory effort (lordotic spine) Auscultation: + diminished lung sounds Cardiovascular: RRR, no murmur, no edema (except 1+ R pedal) Gastrointestinal (Abdomen): Inspection/Auscultation: normal bowel sounds P ercussion/Palpation: abdomen soft; abdomen nontender Musculoskeletal: Extremities: strength 5/5 throughout Skin: no rashes, warm and dry Results & Data Vital Signs (Past 12 Hours) Vital Signs Temp Pulse Pulse Resp BP Pulse Ox O2 Del Method 09/03/24 15:15 36.6 C 66 19 161/66 H 92 Room Air 09/03/24 11:04 36.8 C 70 18 142/71 H 92 Room Air 09/03/24 08:00 Room Air 09/03/24 07:35 89 09/03/24 07:27 36.6 C 77 18 179/84 H 93 Room Air 09/03/24 07:14 76 16 96 Room Air Laboratory Results 08/30/24 05:35 09/03/24 07:05
[2024-09-04 06:14] LABS: Hematocrit (blood only) 34.3 % (37.0-47.0); Hemoglobin 11.2 g/dl (12.0-16.0); Mean Corpuscular Hemoglobin 33.7 pg (25.0-34.0); Mean Corpuscular Hgb Conc 32.7 g/dL (32.0-36.0); Mean Corpuscular Volume 103.3 fL (80.0-100.0); Mean Platelet Volume 10.1 fL (9.4-12.4); Platelet Count 187 K/uL (130-400); RDW Coefficient of Variation 13.3 % (11.5-14.5); RDW Standard Deviation 50.9 fL (36.4-46.3); Red Blood Count 3.32 M/uL (4.20-5.40); White Blood Count 10.34 K/ul (4.8-10.8)
--- NOTE | 2024-09-04 06:15 | Electrocardiogram Report ---
Test Reason : Blood Pressure : */* mmHG Vent. Rate : 73 BPM Atrial Rate : 73 BPM P-R Int : 114 ms QRS Dur : 104 ms QT Int : 466 ms P-R-T Axes : 23 -19 24 degrees QTcB Int : 513 ms Sinus rhythm with frequent , and consecutive Premature ventricular complexes Possible Left atrial enlargement Left ventricular hypertrophy Inferior infarct , age undetermined Prolonged QT Abnormal ECG When compared with ECG of 27-Aug-2024 09:02, Borderline criteria for Lateral infarct are no longer Present T wave inversion more evident in Anterior leads T wave inversion less evident in Lateral leads Confirmed by Arun Delacruz ([id number]) on 09/04/2024 6:14:59 AM Referred By: REFERRED SELF Confirmed By: Arun Delacruz
[2024-09-04 06:30] LABS: BUN Creatinine Ratio 15.7 (10-20); Calcium 8.9 mg/dl (8.6-10.3); Creatinine Clr Calc Pharmacy 45.3 ml/min; Magnesium 1.6 mg/dl (1.7-2.4); Phosphorus 4.4 mg/dl (2.5-4.9); Potassium 3.9 mmol/L (3.5-5.1)
[2024-09-04] MEDS: MAGNESIUM SULFATE / D5W 1 GM/100 ML BAG IV SCH (08:02)
[2024-09-04] MEDS: hydrALAZINE HCL 25 MG TAB PO SCH (11:48)
--- NOTE | 2024-09-04 16:22 | Nephrology Progress Note ---
Date of Service September 04, 2024 Assessment & Plan (1) Hypertensive urgency: Plan: improving today w/ SBP in 150-160s; HTN urgency in setting of recent NSTEMI/hypotension > currently on imdur, toprol XL 50 mg AM/ 25 PM, amlodipine 5 mg bid, losartan 100 mg daily -also started spironolactone given recent [place]. - Will increase metoprolol to 50 mg twice daily - from renal standpoint patient can be discharged tomorrow with renal follow-up in 2 weeks. (2) HAYDEN (acute kidney injury): Plan: markedly mproving stage 3 nonoliguric HAYDEN from ATN which happened because of Severe Hypotension and Hypoxia that happened on 08/24/2024; hypotension followed by hypertensive urgency through 08/29. Creat went from 0.96 on Adx to 3.78 in 3 days. today it's 1.02. Given her extensive cardiac Dz as well as lung Disease and PVD she is very prone to develop ATN with Severe Hypotension and Hypoxia. Renal u/s unremarkable. CK 10. 08/25 UA had protein, blood and granular casts c/w ATN. >remains on high dose K supplements, Reduce potassium chloride 20 mEq daily on discharge >>she will need Nephro hosp d/c appt w/ Dr Coreas after d/c care coordinated w/ Dr Pérez re med dosing, focus on BP; we are in agreement Admission and Anticipated Discharge Date Admission Date: August 25, 2024 Subjective Seen for HAYDEN. She feels better. No shortness of breath. Blood pressure intermittently high. Review of Systems 2 Review of Systems: All other systems were reviewed and negative except as noted in HPI Physical Exam 2 Physical Exam: General exam: Appears comfortable, no acute distress HEENT: Pupils are equal and reactive to light Neck: No JVD, neck is supple trachea is midline Respiratory system: Clear breath sounds bilaterally. Gastrointestinal: Abdomen is soft, non distended, non tender, bowel sounds are present CVS: Regular rate and rhythm. No murmurs, rubs or gallops Musculoskeletal: No joint or muscle tenderness Extremities: Non tender, no edema, peripheral pulses are present Neuro: Oriented, no tremors, no focal neurological deficits Skin: No rashes Results & Data Vital Signs (Past 12 Hours) Vital Signs Temp Pulse Resp BP Pulse Ox O2 Del Method 09/04/24 15:07 36.7 C 83 19 166/81 H 96 Room Air 09/04/24 11:00 36.7 C 79 17 139/70 95 Room Air 09/04/24 07:44 36.4 C L 56 L 17 164/82 H 93 Room Air 09/04/24 07:28 78 17 93 Room Air Laboratory Results 09/04/24 05:37 09/04/24 05:37 WBC 10.34 RBC 3.32 L MCV 103.3 H MCH 33.7 MCHC 32.7 RDW Std Deviation 50.9 H RDW Coeff of Naman 13.3 Plt Count 187 MPV 10.1 Phosphorus 4.4
--- NOTE | 2024-09-04 16:57 | Hospitalist Progress Note ---
Date of Service September 04, 2024 Assessment & Plan (1) Encephalopathy: Plan: (1) Altered mental status: Plan: (1) Encephalopathy: Plan: per previous hospitalist with addendum: Ms. Wang is a 68-year-old female with past medical history significant for type 2 diabetes, hyperlipidemia, COPD, CAD status post CABG, heart failure with reduced ejection fraction, paroxysmal atrial fibrillation, peripheral artery disease status post femoral-popliteal bypass surgery, hypertension, mitral valve disease, B12 deficiency, osteoporosis, backache, migraines, iron deficiency anemia, tobacco use use disorder, anxiety, who lives at home with her and ambulates with a cane was brought in because of lethargy and altered mental status. Initial concern for oxycodone overdose, however, patient not responsive to narcan. Improving with steroids (on Decadron 2/2 reported benzyl alcohol allergy and patient cannot clarify) #Acute Metabolic Encephalopathy likely 2/2 hypercapnia likely multifactorial iso medications, COPD exacerbation and ?questionable UTI Resolved #HAYDEN on CKD III potentially prerenal iso relative hypotension Consulted nephrology, Cr up to 3.62 gradually improved to 1.02 #Acute hypoxic hypercapnic resp failure #Acute COPD #Current tobacco use #?opioid overdose: low suspicion as patient did not respond much to narcan and still lethargic CXR with atelectatic changes CTX and doxy continued procal negative Decadron 10mg daily (allergic to preservative in solumedrol) pulmicort and performist bid LAMA/LABA/ICS at this time nicotine patch stable V/Q scan: no PE given Zosyn, Decadron, Pulmicort, Perforomist, Anoro Ellipta Vancomycin p.o. for C. difficile prophylaxis weaned off O2 completed Zosyn 7 day course now on Spironolactone, will help with pleural effusion CXR - 1 . Cardiomegaly with slight progression of interstitial pulmonary edema. 2. Small to moderate right and small left pleural effusions. Right basilar opacity could reflect pneumonia or atelectasis. Radiographic follow-up to ensure resolution is recommended. 3. Possible 2.2 cm left apical opacity. This is likely artifactual however a focus of pneumonia could appear similar. #NSTEMI II likely demand iso hypoxic CTM on tele, Cards following: conservative management at this time #HFmrEF 2/2 ischemic cardiomyopathy #PAF continue eliquis Spironolactone started by Nephro #Hypertension initially hypotensive then patient's BP more difficult to control, elevated patient reports BP has been uncontrolled at home as well - now BP improved Amlodipine added Spironolactone added Imdur dose increased also on metoprolol - dose increased #Chronic diarrhea Recent C. difficile colitis, positive gene not toxin Continue Vancomycin 125 daily for prophylaxis 08/28 Positive nausea today Check KUB: Nonobstructive bowel gas pattern As needed Zofran Check stools stool panel PCR and C. difficile 08/29 resolved #Type 2 diabetes Not on meds A1C 6.1% #Peripheral artery disease On statin and Eliquis #Hyperlipidemia On statin #Chronic backache Continue gabapentin Hold off on oxycodone #Iron deficiency anemia B12 deficiency Hemoglobin stable #Chronic leukocytosis likely iso chronic tobacco use peripheral smear ordered #Prolonged QTc will follow repeat EKG Avoid QT prolonging drugs QT 523--> 506--> 513 Monitor closely #hx of hypokalemia and hypomagnesia -- will follow labs, replete and monitor DVT prophylaxis On Eliquis Disposition pending PT/OT eval patient would prefer to return home Admission and Anticipated Discharge Date Admission Date: August 25, 2024 Subjective Pt seen in follow up Seen sitting up in bed, comfortable, not in distress States she feels improved Denies cough, shortness of breath, chest pain, palpitations, dizziness BP improved No other new symptoms Discussed w/ nephrology - likely to DC tmrw Review of Systems Review of Systems: All systems reviewed & are unremarkable except as noted in Subjective Physical Exam Physical Exam: General- oriented x 3, not in distress, speaks in sentences with no effort or accessory muscle use Eyes- anicteric Neck- no JVD Lungs- clear breath sounds bilaterally, no crackles/wheezing Heart- normal rate, regular rhythm; no murmurs Abdomen- normal bowel sounds, nondistended, soft, no tenderness Extremities- no pretibial edema, no calf tenderness Neuro- alert, oriented x 3; no gross focal neurologic deficits Skin- warm & dry Results & Data Results & Data Vital Signs (Past 12 Hours) Vital Signs Temp Pulse Resp BP Pulse Ox O2 Del Method 09/04/24 15:07 36.7 C 83 19 166/81 H 96 Room Air 09/04/24 11:00 36.7 C 79 17 139/70 95 Room Air 09/04/24 07:44 36.4 C L 56 L 17 164/82 H 93 Room Air 09/04/24 07:28 78 17 93 Room Air Laboratory Results 09/04/24 Range/Units 05:37 WBC 10.34 (4.8-10.8) K/ul RBC 3.32 L (4.20-5.40) M/uL Hgb 11.2 L (12.0-16.0) g/dl Hct 34.3 L (37.0-47.0) % MCV 103.3 H (80.0-100.0) fL MCH 33.7 (25.0-34.0) pg MCHC 32.7 (32.0-36.0) g/dL RDW Std Deviation 50.9 H (36.4-46.3) fL RDW Coeff of Naman 13.3 (11.5-14.5) % Plt Count 187 (130-400) K/uL MPV 10.1 (9.4-12.4) fL Sodium 142 (136-145) mmol/L Potassium 3.9 (3.5-5.1) mmol/L Chloride 113 H (98-107) mmol/L Carbon Dioxide 21 (21-32) mmol/L Anion Gap 8 (3-11) BUN 16 (6-23) mg/dl Creatinine 1.02 (0.6-1.2) mg/dl Est Cr Clr Drug Dosing 45.3 ml/min eGFR 59.55 BUN/Creatinine Ratio 15.7 (10-20) Glucose 103 H (70-99(Fasting)) mg/dl Calcium 8.9 (8.6-10.3) mg/dl Phosphorus 4.4 (2.5-4.9) mg/dl Magnesium 1.6 L (1.7-2.4) mg/dl Medications Administered Current Inpatient Medications Acetaminophen (Acetaminophen 325 Mg Tab) 650 mg PO QID PRN PRN Reason: pain/fever Stop: 09/27/24 04:06 Last Admin: 09/03/24 23:03 Dose: 650 mg Albuterol (Albuterol Hfa 8 Gm Inhaler) 2 puffs INH Q4H PRN PRN Reason: sob Stop: 09/24/24 04:11 Albuterol (Albut/Ipratrop 3mg/0.5mg Neb 3 Ml Vial) 3 ml NEB Q6R PRN; Protocol PRN Reason: Shortness Of Breath Or Wheezing Stop: 09/24/24 13:44 Amlodipine Besylate (Amlodipine Besylate 5 Mg Tab) 5 mg PO BID [facility] Stop: 09/30/24 20:59 Last Admin: 09/04/24 07:52 Dose: 5 mg Apixaban (Apixaban 5 Mg Tablet) 5 mg PO BID [facility] Stop: 09/24/24 08:59 Last Admin: 09/04/24 07:49 Dose: 5 mg Budesonide (Budesonide 0.5 Mg/2 Ml Vial (Pulmicort)) 0.5 mg NEB BIDR [facility] Stop: 09/24/24 18:59 Last Admin: 09/04/24 07:28 Dose: 0.5 mg Calcitonin [place] (Calcitonin [place] Na 200 Iu/Ac 3.7 Ml Btl) 1 sprays NA DAILY [facility] Stop: 09/24/24 08:59 Last Admin: 09/04/24 07:55 Dose: 1 sprays Wies Syrup (Wise Syrup 5 Ml Udp) 5 ml PO DAILY [facility] Stop: 09/05/24 08:59 Last Admin: 09/04/24 07:50 Dose: 5 ml Fluticasone Propionate (Fluticasone Propionate Na Spr 16 Gm Btl) 1 sprays NA BID [facility] Stop: 09/24/24 08:59 Last Admin: 09/04/24 07:50 Dose: 1 sprays Formoterol Fumarate (Formoterol 20 Mcg/2 Ml Vial) 20 mcg NEB BIDR [facility] Stop: 09/24/24 08:59 Last Admin: 09/04/24 07:28 Dose: 20 mcg Gabapentin (Gabapentin 300 Mg Cap) 300 mg PO TID [facility] Stop: 09/30/24 08:59 Last Admin: 09/04/24 13:21 Dose: 300 mg Hydralazine HCl (Hydralazine Hcl 20 Mg/Ml Vial) 5 mg IV Q6H PRN PRN Reason: systolic bp > 160 Stop: 09/27/24 08:20 Last Admin: 09/02/24 21:57 Dose: 5 mg Hydralazine HCl (Hydralazine Hcl 25 Mg Tab) 25 mg PO BID [facility] Stop: 10/04/24 10:44 Last Admin: 09/04/24 11:48 Dose: Not Given Isosorbide Mononitrate (Isosorbide [place] Extended Rel 30 Mg Tabcr) 45 mg PO DAILY [facility] Stop: 10/03/24 08:59 Last Admin: 09/04/24 07:51 Dose: 45 mg Lactobacillus Acidophilus (Advanced Probiotic 625 Mg Capsule) 1,250 mg PO DAILY [facility] Stop: 09/26/24 08:59 Last Admin: 09/04/24 07:51 Dose: 1,250 mg Levalbuterol HCl (Levalbuterol 1.25 Mg/3 Ml Neb) 1.25 mg NEB Q4H PRN PRN Reason: Shortness Of Breath Or Wheezing Stop: 09/24/24 07:09 Lorazepam (Lorazepam 1 Mg Tab) 1 mg PO Q6H PRN PRN Reason: Anxiety Stop: 10/02/24 11:50 Last Admin: 09/04/24 12:03 Dose: 1 mg Losartan Potassium (Losartan Potassium 50 Mg Tab) 100 mg PO DAILY [facility] Stop: 09/29/24 08:59 Last Admin: 09/04/24 07:50 Dose: 100 mg Magnesium Oxide (Magnesium Oxide 400 Mg Tab) 400 mg PO BID [facility] Stop: 10/01/24 11:59 Last Admin: 09/04/24 07:51 Dose: 400 mg Metoprolol Succinate (Metoprolol Succ 50mg Ext Rel Tab) 50 mg PO DAILY [facility] Stop: 09/24/24 08:59 Last Admin: 09/04/24 07:54 Dose: 50 mg Metoprolol Succinate (Metoprolol Succ 50mg Ext Rel Tab) 50 mg PO QPM [facility] Stop: 10/04/24 20:59 Miscellaneous (Remove Nicoderm Patch) 1 each N/A DAILY@0859 [facility] Stop: 09/25/24 08:58 Last Admin: 09/04/24 07:49 Dose: 1 each Nicotine (Nicotine 21 Mg/24 Hr Tdsy) 1 patch TD QAM [facility] Stop: 09/24/24 04:49 Last Admin: 09/04/24 07:49 Dose: 1 patch Ondansetron HCl (Ondansetron Inj 2 Mg/Ml 2 Ml Vial) 4 mg IV Q6H PRN PRN Reason: Nausea And Vomiting Stop: 09/27/24 08:18 Last Admin: 08/29/24 05:53 Dose: 4 mg Pantoprazole Sodium (Pantoprazole 40 Mg Tab) 40 mg PO DAILY [facility] Stop: 09/24/24 08:59 Last Admin: 09/04/24 07:49 Dose: 40 mg Potassium Chloride (Potassium Chloride Crtab 20 Meq Tabcr) 20 meq PO BID [facility] Stop: 10/02/24 20:59 Last Admin: 09/04/24 08:01 Dose: 20 meq Pravastatin Sodium (Pravastatin Sod 40 Mg Tab) 40 mg PO DAILY [facility] Stop: 09/24/24 08:59 Last Admin: 09/04/24 07:53 Dose: 40 mg Spironolactone (Spironolactone 25 Mg Tab) 25 mg PO QAM [facility] Stop: 10/03/24 15:29 Last Admin: 09/04/24 07:54 Dose: 25 mg Umeclidinium/Vilanterol (Umeclidinium/Vilanterol 62.5/25mcg 7 Puffs/Inhaler) 1 puffs INH DAILY [facility] Stop: 09/24/24 08:59 Last Admin: 09/04/24 07:54 Dose: 1 puffs Vancomycin HCl (Vancomycin Hcl 125 Mg/2.5ml Soln) 125 mg PO DAILY [facility] Stop: 09/05/24 08:59 Last Admin: 09/04/24 08:02 Dose: 125 mg
[2024-09-04] MEDS: METOPROLOL SUCC 50MG EXT REL TAB PO SCH (21:50)
[2024-09-04] MEDS: CETIRIZINE HCL 10 MG TABLET PO ONE (23:39)
[2024-09-05 06:30] LABS: Hematocrit (blood only) 32.8 % (37.0-47.0); Hemoglobin 10.8 g/dl (12.0-16.0); Mean Corpuscular Hemoglobin 33.9 pg (25.0-34.0); Mean Corpuscular Hgb Conc 32.9 g/dL (32.0-36.0); Mean Corpuscular Volume 102.8 fL (80.0-100.0); Mean Platelet Volume 10.2 fL (9.4-12.4); Platelet Count 184 K/uL (130-400); RDW Standard Deviation 49.1 fL (36.4-46.3); Red Blood Count 3.19 M/uL (4.20-5.40); White Blood Count 13.82 K/ul (4.8-10.8)
[2024-09-05 06:55] LABS: Calcium 8.7 mg/dl (8.6-10.3); Magnesium 1.7 mg/dl (1.7-2.4); Phosphorus 3.7 mg/dl (2.5-4.9); Potassium 3.9 mmol/L (3.5-5.1)
[2024-09-05 08:08] VITALS: TEMP 97.9; O2SAT 94
[2024-09-05] MEDS: MAGNESIUM SULFATE / D5W 1 GM/100 ML BAG IV ONE (10:03)
[2024-09-05 10:49] VITALS: BP 140/69; RESP 20
[2024-09-05 11:22] VITALS: PULSE 79
--- NOTE | 2024-09-05 11:31 | Discharge Summary ---
Date of Service September 05, 2024 Admission HPI Per Admitting Provider 68-year-old female with past medical history significant for type 2 diabetes, hyperlipidemia, COPD, CAD status post CABG, heart failure with reduced ejection fraction, paroxysmal atrial fibrillation, peripheral artery disease status post femoral-popliteal bypass surgery, hypertension, mitral valve disease, B12 deficiency, osteoporosis, backache, migraines, iron deficiency anemia, tobacco use use disorder, anxiety, who lives at home with her and ambulates with a cane was brought in because of lethargy and altered mental status. Currently the patient is alert and awake and oriented x 3. Somewhat hard of hearing. Patient recently started oxycodone for back pain. She states she only took 3 tablets of oxycodone so far and last dose was 10 PM tonight. Seems has been found lethargic tonight and was unable to wake her up. EMS was called. For EMS after Narcan in the field patient became more responsive. In the ER patient was hypotensive and was saturating okay on nasal cannula. Cur rently patient denies any headache. No blurred vision. No runny nose or sore throat. Has mild chronic cough. Denies any difficulty swallowing. Denies any chest pain or shortness of breath. Currently no nausea. No abdominal pain. Patient states she has chronic diarrhea for many years and has 5-7 bowel movements a day. Recently was treated for C. difficile colitis. She is micturating okay. Recent last admission because of hypotension BP meds were held except beta-atif. She followed up with the PCP. Losartan 50 mg were restarted but Aldactone was held because of ongoing diarrhea and metoprolol and Imdur were continued. At home her blood pressure was running high in 200s and PCP was notified and and as per [facility] notes was advised to increase losartan to 100 mg and restart spironolactone 50 mg daily. Patient says she started losartan 100 mg daily but she does not know anything about restarting spironolactone. Patient states still her blood pressure usually running high at home. Past medical history. As mentioned above Past surgical history. CABG. Small bowel resection. Appendectomy. Bilateral cataracts. Cholecystectomy. Whipple's procedure. Removal of partial stomach. Tonsillectomy adenoidectomy. Social history. . Quit smoking 1966. Smoking1 pack a day . No alcohol use with no drug use. Family history. No family history on file. Admission Exam Per Admitting Provider General- Not in acute distress Head- atraumatic Eyes- PERRL. ENT- oropharynx clear Neck- supple, no JVD. Lungs- clear to auscultation no wheezing or crackles Heart- regular rhythm; no murmur, no gallop. Abdomen- normal bowel sounds, soft, nontender, no distension. Extremities- no pretibial edema, no erythema seen. Neuro- alert, oriented x 3; PERRL, no facial palsy; no dysarthria; obeys commands,moves extremities. Principal Diagnosis Encephalopathy HAYDEN on CKD Acute hypoxic hypercapnic resp failure Uncontrolled hypertension Discharge Exam General- oriented x 3, not in distress, speaks in sentences with no effort or accessory muscle use Eyes- anicteric Neck- no JVD Lungs- clear breath sounds bilaterally, no crackles/wheezing Heart- normal rate, regular rhythm; no murmurs Abdomen- normal bowel sounds, nondistended, soft, no tenderness Extremities- no pretibial edema, no calf tenderness Neuro- alert, oriented x 3; no gross focal neurologic deficits Skin- warm & dry Discharge Data Allergies Allergy/AdvReac Type Severity Reaction Status Date / Time benzyl alcohol Allergy Severe Anaphylaxis Verified 08/15/23 05:44 Iodinated Contrast Media Allergy Severe Rash - IVP Verified 08/15/23 05:44 dye lisinopril Allergy Severe chills,sera Verified 08/15/23 05:44 rs prochlorperazine Allergy Severe Anaphylaxis Verified 08/15/23 05:44 saccharin Allergy Severe Anaphylaxis Verified 08/15/23 05:44 simvastatin Allergy Intermediate itching Verified 08/15/23 05:44 furosemide Allergy Mild rash Verified 08/15/23 05:44 promethazine Allergy Mild rash Verified 08/15/23 05:44 Consultations 08/25/24 01:17 ED Decision to Admit Stat 08/25/24 16:07 Consult Cardiology Routine 08/26/24 12:58 Consult Nephrology Routine Ordered Studies 08/24/24 23:07 CT head/brain wo con Stat FINDINGS: Brain: No acute intracranial hemorrhage, edema or abnormal mass-effect. Ventricles: Unremarkable. No ventriculomegaly. Bones/joints: Unremarkable. No acute fracture. Soft tissues: Unremarkable. Sinuses: Unremarkable as visualized. No acute sinusitis. Mastoid air cells: Unremarkable as visualized. No mastoid effusion. IMPRESSION: No acute intracranial abnormality. 08/27/24 10:51 US Renal Bladder [US renal/blad retro comp] Urgent FINDINGS: The right kidney measures 11.7 cm in length, and the left kidney measures 12.1 cm in length. The right kidney is normal in size, contour, cortical thickness, and echogenicity. No hydronephrosis is identified. No renal lesion is identified. The left kidney is normal in size, contour, cortical thickness and echogenicity. No hydronephrosis is identified. No renal lesion is identified. A Vazquez catheter is seen in the collapsed bladder. No large intraluminal mass is seen. IMPRESSION: Unremarkable examination and in particular no evidence of hydronephrosis. 08/28/24 04:08 CT head/brain wo con Stat IMPRESSION: 1. No evidence of acute intracranial abnormality is demonstrated. 2. Chronic microvascular ischemic changes. 3. Cerebral atrophy. 4. Bilateral mastoiditis present. No other new interval abnormality since prior study. 09/01/24 19:21 CT head/brain wo con Stat FINDINGS: Brain: Unremarkable. No hemorrhage. Mild nonspecific white matter changes. No edema. Ventricles: Unremarkable. No ventriculomegaly. Bones/joints: Unremarkable. No acute fracture. Soft tissues: Unremarkable. Sinuses: Unremarkable as visualized. No acute sinusitis. Mastoid air cells: There is a left mastoid and Douglas fusion. IMPRESSION: No evidence of acute intracranial pathology. Left mastoid and middle ear effusion. Hospital Course (1) Encephalopathy: (1) Altered mental status: Plan: (1) Encephalopathy: Plan: per previous hospitalist with addendum: Ms. Wang is a 68-year-old female with past medical history significant for type 2 diabetes, hyperlipidemia, COPD, CAD status post CABG, heart failure with reduced ejection fraction, paroxysmal atrial fibrillation, peripheral artery disease status post femoral-popliteal bypass surgery, hypertension, mitral valve disease, B12 deficiency, osteoporosis, backache, migraines, iron deficiency anemia, tobacco use use disorder, anxiety, who lives at home with her and ambulates with a cane was brought in because of lethargy and altered mental status. Initial concern for oxycodone overdose, however, patient not responsive to narcan. Improving with steroids (on Decadron 2/2 reported benzyl alcohol allergy and patient cannot clarify) #Acute Metabolic Encephalopathy likely 2/2 hypercapnia likely multifactorial iso medications, COPD exacerbation and ?questionable UTI Resolved #HAYDEN on CKD III potentially prerenal iso relative hypotension Consulted nephrology, Cr up to 3.62 gradually improved to 1.02 #Acute hypoxic hypercapnic resp failure #Acute COPD #Current tobacco use #?opioid overdose: low suspicion as patient did not respond much to narcan and still lethargic CXR with atelectatic changes CTX and doxy continued procal negative Decadron 10mg daily (allergic to preservative in solumedrol) pulmicort and performist bid LAMA/LABA/ICS at this time nicotine patch stable V/Q scan: no PE given Zosyn, Decadron, Pulmicort, Perforomist, Anoro Ellipta Vancomycin p.o. for C. difficile prophylaxis weaned off O2 completed Zosyn 7 day course now on Spironolactone, will help with pleural effusion CXR - 1 . Cardiomegaly with slight progression of interstitial pulmonary edema. 2. Small to moderate right and small left pleural effusions. Right basilar opacity could reflect pneumonia or atelectasis. Radiographic follow-up to ensure resolution is recommended. 3. Possible 2.2 cm left apical opacity. This is likely artifactual however a focus of pneumonia could appear similar. #NSTEMI II likely demand iso hypoxic CTM on tele, Cardiology following: conservative management at this time #HFmrEF 2/2 ischemic cardiomyopathy #PAF continue eliquis Spironolactone started by Nephro #Hypertension initially hypotensive then patient's BP more difficult to control, elevated patient reports BP has been uncontrolled at home as well - now BP improved, currently 140/69 Amlodipine added - 5mg bid Spironolactone added - 25 mg daily Imdur dose increased - to 45 daily also on metoprolol - dose increased to twice a day hydralazine added 25 tid #Chronic diarrhea Recent C. difficile colitis, positive gene not toxin Continued Vancomycin 125 daily for prophylaxis #Type 2 diabetes Not on meds A1C 6.1% #Peripheral artery disease On statin and Eliquis #Hyperlipidemia On statin #Chronic backache Continue gabapentin - dose decreased Hold off on oxycodone #Iron deficiency anemia B12 deficiency Hemoglobin stable #Chronic leukocytosis likely iso chronic tobacco use peripheral smear obtained WBC improved to 10-13K #Prolonged QTc will follow repeat EKG Avoid QT prolonging drugs QT 523--> 506--> 513 Monitor closely #hx of hypokalemia and hypomagnesia -- will follow labs, replete and monitor - currently normalized - check BMP, Mag level as outpt Total Time Total Time Spent Total Time Spent (In Minutes): 40 Discharge Plan Discharge Items Patient Disposition: Home - Home Health Services Reason For Visit: AMS, ELEVATED TROPONIN Discharge Diagnosis: Encephalopathy HAYDEN on CKD Acute hypoxic hypercapnic resp failure Uncontrolled hypertension Activity: Per Instructions section Non-emergency contact: Primary Care Provider and [employer] Operator Call non-emergency contact if: you have any medication questions and your symptoms worsen Follow-up/Referrals: Salvatore Coreas MD [Surgeon] - (The nephrology office will contact you to schedule a hospital follow-up appointment. ) Akbar Daniel DO [Primary Care Provider] - (Date & Time 09/09/2024 11:00 AM Provider Akbar Daneil DO Department [facility] ) Diet: Regular Addtl Attending Provider Instructions: Follow up with your primary care doctor and nephrology. Your appointment with primary care physician is scheduled for 09/09/2024. You will also need to follow up with nephrology and have blood work done to check on your electrolytes and kidney function. Your gabapentin dose was decreased in hospital - instead of 800 mg three times a day, take 400 mg three times a day. Take potassium and magnesium supplement as prescribed. If you can, check your blood pressure at home and record your numbers - discuss your numbers with your doctors so that your medications can be further adjusted if needed. Continue losartan 100 mg daily. Isosorbide was increased from 30 to 45 mg daily. Metoprolol was increased to twice a day. Take spironolactone 25 mg daily. Take amlodipine 5 mg twice a day. Take hydralazine 25 mg three times a day. Pending Studies at Discharge: No Stand-Alone Forms: My [employer], Smoking Cessation Medications and DC Order Prescriptions: New Advanced Probiotic 625 mg (10 billion cell) Capsule 1 cap PO DAILY Qty: 10 0RF potassium chloride 20 mEq Tablet,Er Particles/Crystals 20 meq PO DAILY Qty: 30 0RF magnesium oxide 400 mg (241.3 mg magnesium) Tablet 400 mg PO DAILY Qty: 30 0RF gabapentin 400 mg capsule 400 mg PO TID Qty: 60 0RF amlodipine [Norvasc] 5 mg Tablet 5 mg PO BID Qty: 60 0RF isosorbide mononitrate 30 mg Tablet Extended Release 24 Hr 45 mg PO DAILY Qty: 30 0RF spironolactone 25 mg Tablet 25 mg PO QAM Qty: 30 0RF hydralazine 25 mg Tablet 25 mg PO TID Qty: 60 0RF Continued losartan 50 mg tablet 100 mg PO DAILY loperamide 2 mg capsule 2 mg PO TID PRN (Reason: Diarrhea) pravastatin 40 mg tablet 40 mg PO DAILY omeprazole 40 mg capsule,delayed release(DR/EC) 40 mg PO DAILY calcitonin (salmon) 200 unit/actuation spray,non-aerosol 1 spray intranasal DAILY trazodone 150 mg tablet 150 mg PO HS albuterol sulfate 90 mcg/actuation HFA aerosol inhaler 2 inh INHALATION Q4H PRN (Reason: sob) fluticasone propionate 50 mcg/actuation spray,suspension 1 spray INTRANASAL BID Eliquis 5 mg tablet 5 mg PO BID lorazepam 1 mg tablet 1 mg QID PRN (Reason: Anxiety) Changed metoprolol succinate 50 mg tablet extended release 24 hr 50 mg PO BID Qty: 30 0RF Discontinued isosorbide mononitrate 30 mg tablet extended release 24 hr 30 mg PO DAILY gabapentin 800 mg tablet 800 mg PO TID oxycodone 5 mg tablet 5 mg PO Q4H PRN (Reason: Pain) Discharge Orders: Discharge Order (Routine); Ordered 09/05/24 Ordered By: Shaggy Pérez Admission Data Admit Date/Time: 08/25/24 02:20 Attending Provider: Shaggy Pérez Admit Provider: Kenroy Ortiz Primary Care Provider: Akbar Daniel Other Providers: Kenroy Ortiz; Salvatore Coreas; Efra Worthy
[2024-09-05] MEDS ORDERED: hydrALAZINE HCL 25 MG TAB PO SCH (14:00)
== END 2024-09-05 13:12 | disposition home health service (06) | DRG 190 ==
LOC: ED 22:17 → 4W 08-25 02:20 → SUATTDRO 08-25 02:20 → 4W 08-25 03:46
DX: N18.30 Chronic kidney disease, stage 3 unspecified; I48.0 Paroxysmal atrial fibrillation; K21.9 Gastro-esophageal reflux disease without esophagitis; I25.10 Atherosclerotic heart disease of native coronary artery without angina pectoris; E11.51 Type 2 diabetes mellitus with diabetic peripheral angiopathy without gangrene; F17.210 Nicotine dependence, cigarettes, uncomplicated; J96.02 Acute respiratory failure with hypercapnia; E11.22 Type 2 diabetes mellitus with diabetic chronic kidney disease; G93.41 Metabolic encephalopathy; I25.5 Ischemic cardiomyopathy; J90 Pleural effusion, not elsewhere classified; E78.5 Hyperlipidemia, unspecified; Z95.1 Presence of aortocoronary bypass graft; E53.8 Deficiency of other specified B group vitamins; N17.0 Acute kidney failure with tubular necrosis; D50.9 Iron deficiency anemia, unspecified; Z79.01 Long term (current) use of anticoagulants; J44.1 Chronic obstructive pulmonary disease with (acute) exacerbation; I16.0 Hypertensive urgency; J96.01 Acute respiratory failure with hypoxia; Z83.3 Family history of diabetes mellitus; I24.89 Other forms of acute ischemic heart disease; F41.9 Anxiety disorder, unspecified; I50.22 Chronic systolic (congestive) heart failure; I13.0 Hypertensive heart and chronic kidney disease with heart failure and stage 1 through stage 4 chronic kidney disease, or unspecified chronic kidney disease

== ENCOUNTER 2024-10-21 19:07 | Inpatient (IN) ==
--- NOTE | 2024-10-21 19:55 | XRay Report ---
INDICATION: Difficulty breathing. TECHNIQUE: Frontal radiograph of the chest. COMPARISON: Radiograph from 08/30/2024. FINDINGS: Cardiomegaly. Mild pulmonary vascular congestion. Small left pleural effusion. Subsegmental atelectasis in the left lung base. No infiltrate or pneumothorax. No acute osseous abnormality evident. IMPRESSION: Mild pulmonary vascular congestion. Small left pleural effusion. Electronically signed by Mark Alvarez 10-21-2024 7:55 PM
[2024-10-21] MEDS: SODIUM CHLORIDE 0.9% 500 ML IV ONE (20:00)
[2024-10-21] MEDS: ONDANSETRON INJ 2 MG/ML 2 ML VIAL IV STA (20:00)
--- NOTE | 2024-10-21 20:03 | Emergency Department Note ---
Impression & Plan Coronavirus infection, Hypoxia, Nausea & vomiting, Weakness ED Provider Note Provider: Lazaro Carlisle MD CHIEF COMPLAINT: Nausea vomiting, chronic diarrhea weak HISTORY OF PRESENT ILLNESS: Patient is a 68-year-old female history of CAD with CABG, heart failure, Pyxis and atrial fibrillation on Eliquis, hypertension, GERD, chronic diarrhea presenting here today reporting nausea vomiting and chills starting earlier today. No change in her underlying chronic diarrhea. No bloody diarrhea or vomiting. Little bit of cough has been a bit weak. Not eating and drinking well. Appears dehydrated. Has been able to take her medicines okay though. No trauma reported as caught her before she fell. PAST MEDICAL HISTORY: As noted above MEDICATIONS: Reviewed home medications includes Eliquis SOCIAL HISTORY: , very distant former smoker PHYSICAL EXAM: GENERAL: alert and oriented in no acute distress on stretcher somewhat frail and weak in appearance Head: normocephalic and atraumatic EYES: No injection, discharge or icterus. EOMI. NECK: Trachea midline. ENT: Mucous membranes pink and moist. LUNGS: Airway patent. No retractions. Breath sounds perhaps a faint wheeze slight tachypnea. HEART: Regular rate and rhythm. No chest wall tenderness ABDOMEN: Soft and non-tender, without guarding or rebound. SKIN: Acyanotic, warm, dry, without rashes EXTREMITIES: Without swelling, tenderness or deformity NEUROLOGICAL: No focal deficits. No aphasia. No facial droop or slurred speech. EK bpm sinus rhythm with sinus arrhythmia. LVH changes without acute ST segment elevation or depression. QTc 442. CONTINUOUS CARDIAC MONITORING: was ordered and showed a heart rate of bpm in Patient's laboratory studies and imaging reviewed. Differential includes Infection, gastroenteritis, viral infection, VTE, dehydration, metabolic abnormality, hypo/hyperglycemia, electrolyte disturbance, anemia, pneumonia, cardiac sources, intracerebral event, toxicologic, neurologic, as well as other pathologies. IMPRESSION/MEDICAL DECISION MAKING: Patient nausea and vomiting chronic diarrhea but that is not really changed. Weakness. Noted be hypoxic and triage. Weaned down to 5 L here. Denies history COPD but see this in the chart. Very distant smoker. Question if this more perfusion. Lactate however is not elevated. Given IV fluid here cautiously given her cardiac history. X-ray does question of small left pleural effusion but no jay pneumonia or pneumothorax noted. She is anticoagulated lives with patient for VTE. Question of is a viral illness. [id number] electrolytes and creatinine without significant abnormality and there is no severe anemia noted here. Fairly benign abdomen and do not believe we need abdominal imaging as I doubt obstruction perforation, cholecystitis, diverticulitis, or pancreatitis. Chemistries here without severe abnormalities on formal testing or renal dysfunction. No evidence of troponin elevation. BNP minimally elevated. Procalcitonin not elevated. Respiratory viral panel returns positive for [id number] coronavirus. Likely explaining her respiratory symptoms and nausea and vomiting. Do not feel a role for antibiotics at this time especially with a history of C. difficile. Doubt active colitis or diverticulitis at this time. Do not believe we need additional abdominal imaging. Discussed with patient while we have been weaning her oxygen she still has some O2 requirement. Again doubt VTE with her anticoagulation. Discussed further care here at the hospital with this including help controlling her GI symptoms. While in anxious to states she was agreeable with this plan and the hospice team was consulted. Will give a DuoNeb and some steroids to see if this does help with her breathing at all. DIAGNOSIS: Hypoxia, coronavirus URI, nausea and vomiting DISPOSITION: Hospitalist will evaluate Patient was agreeable with this plan. Past Med/Surg History Problem List (Updated 10/22/24 @ 00:36 by Lazaro Carlisle M.D.) Weakness (Acute) Nausea & vomiting (Acute) Hypoxia (Acute) Coronavirus infection (Acute) Hypoxia Hypertensive urgency Altered mental status NSTEMI (non-ST elevated myocardial infarction) Elevated troponin Hypotension ASCVD (arteriosclerotic cardiovascular disease) Encephalopathy (Acute) Colitis Chronic HFrEF (heart failure with reduced ejection fraction) EF 40-45% per 09/2022 ECHO HAYDEN (acute kidney injury) (Acute) Generalized weakness Paroxysmal atrial fibrillation Atherosclerosis of artery of both lower extremities Current smoker COPD with emphysema Polycythemia Prediabetes pt denies PAD (peripheral artery disease) Myocardial Infarction unsure of date - 2009 or earlier. Hyperlipidemia Hypertension GERD (gastroesophageal reflux disease) Well controlled and stable Anxiety CAD (coronary artery disease) CABG x 4 2002, CABG x 3 2009 Patent PONCE to LAD, vein graft to diagonal and obtuse marginal, and collaterals from RCA by catheterization 01/2017; No new blockages/ischemia seen on stress test 9 Anemia s/p iron infusions- last iron infusion June 2023 Medical History CHF (congestive heart failure) EF 40-45% per 09/2022 ECHO Closed fracture of left proximal humerus Ileus, postoperative Postoperative fever Acute blood loss as cause of postoperative anemia Atrial fibrillation On Eliquis Ischemic cardiomyopathy History of panic attacks worse with large groups History of stomach ulcers 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, twitching and left eye tearing Peripheral neuropathy Migraine Surgical History History of coronary artery bypass graft x4 vessel bypass (~2001/2002) [facility] x3 vessel bypass (~2009) [facility] follows with Dr Borja ([place]) Family history of reaction to anesthesia DAUGHTER>SLOW TO WAKE UP History of esophagogastroduodenoscopy (EGD) History of colonoscopy H/O abdominal surgery 25-30 YEARS AGO>PART OF STOMACH/COLON/PANCREAS REMOVED D/T STOMACH ULCER History of tooth extraction History of cataract surgery RT/LEFT History of cardiac cath MULTIPLE CATH'S DONE>NO SENTS ([facility]) most recently done in the last five years ([id number]) done at Replaced by [facility]. no stents. 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 Beliefs That Will Affect Care: None Current Living Situation: Spouse Current Living Situation Comment: 2 story home, only lives on 1 floor Feels Safe at Home: Yes Assistive Devices: None Allergies Allergies Allergy/AdvReac Type Severity Reaction Status Date / Time benzyl alcohol Allergy Severe Anaphylaxis Verified 08/15/23 05:44 Iodinated Contrast Media Allergy Severe Rash - IVP Verified 08/15/23 05:44 dye lisinopril Allergy Severe chills,sera Verified 08/15/23 05:44 rs prochlorperazine Allergy Severe Anaphylaxis Verified 08/15/23 05:44 saccharin Allergy Severe Anaphylaxis Verified 08/15/23 05:44 simvastatin Allergy Intermediate itching Verified 08/15/23 05:44 furosemide Allergy Mild rash Verified 08/15/23 05:44 promethazine Allergy Mild rash Verified 08/15/23 05:44 Home Meds Home Medications Medication Instructions Recorded Confirmed albuterol sulfate 90 mcg/actuation 2 inh inhalation Q4H PRN Shortness 10/21/24 10/21/24 aerosol inhaler Of Breath Or Wheezing apixaban 5 mg tablet (Eliquis) 5 mg PO BID 10/21/24 10/21/24 calcitonin (salmon) 200 1 spray intranasal DAILY 10/21/24 10/21/24 unit/actuation nasal spray fluticasone propionate 50 1 spray intranasal BID 10/21/24 10/21/24 mcg/actuation nasal spray,suspension gabapentin 400 mg capsule 400 mg PO TID 10/21/24 10/21/24 hydralazine 25 mg tablet 25 mg PO TID 10/21/24 10/21/24 loperamide 2 mg capsule 2 mg PO TID PRN Diarrhea 10/21/24 10/21/24 lorazepam 1 mg tablet 1 mg PO QID PRN Anxiety 10/21/24 10/21/24 losartan 100 mg tablet 100 mg PO DAILY 10/21/24 10/21/24 magnesium oxide 400 mg (241.3 mg 400 mg PO DAILY 10/21/24 10/21/24 magnesium) tablet metoprolol succinate 50 mg 50 mg PO BID 10/21/24 10/21/24 tablet,extended release 24 hr omeprazole 40 mg capsule,delayed 40 mg PO DAILY 10/21/24 10/21/24 release potassium chloride 20 mEq 20 meq PO DAILY 10/21/24 10/21/24 tablet,extended release(part/cryst) pravastatin 40 mg tablet 40 mg PO HS 10/21/24 10/21/24 spironolactone 25 mg tablet 25 mg PO DAILY 10/21/24 10/21/24 trazodone 150 mg tablet 150 mg PO HS 10/21/24 10/21/24 Results & Data (ED) Vital Signs Vital Signs - 24 hr 10/21/24 19:25 10/21/24 19:36 10/21/24 19:44 Temperature 37.2 C Temperature Source Temporal Artery Scan Pulse Rate 92 H 90 Pulse Rate [Finger] Respiratory Rate 18 Respiratory Effort / Characteristics Non-Labored Spontaneous Respiratory Depth Normal Respiratory Pattern Regular Blood Pressure 119/60 Blood Pressure [Right Arm] Blood Pressure Mean 79 Blood Pressure Mean [Right Arm] Pulse Oximetry 75 L 75 L Oxygen Delivery Method Room Air Room Air Oxymask Oxygen Flow Rate 0 Sepsis Recent Fever Within 48 Hours No Sepsis New/Unexplained Change in Mental Status No Sepsis Action Taken by Nursing No Action Required Oxygen Flow Rate - Titration 10 Pulse Oximetry Post Tiitration 95 10/21/24 20:26 10/21/24 21:30 10/21/24 23:00 Temperature Temperature Source Pulse Rate 78 Pulse Rate [Finger] 84 Respiratory Rate 18 20 Respiratory Effort / Characteristics Respiratory Depth Respiratory Pattern Blood Pressure 117/78 Blood Pressure [Right Arm] 132/79 Blood Pressure Mean 82 Blood Pressure Mean [Right Arm] 96 Pulse Oximetry 93 93 93 Oxygen Delivery Method Oxymask Oxymask Oxymask Oxygen Flow Rate 5 5 5 Sepsis Recent Fever Within 48 Hours Sepsis New/Unexplained Change in Mental Status Sepsis Action Taken by Nursing Oxygen Flow Rate - Titration Pulse Oximetry Post Tiitration 10/21/24 23:34 10/22/24 00:23 Temperature Temperature Source Pulse Rate 90 78 Pulse Rate [Finger] Respiratory Rate 20 Respiratory Effort / Characteristics Respiratory Depth Respiratory Pattern Blood Pressure 108/58 L Blood Pressure [Right Arm] Blood Pressure Mean 74 Blood Pressure Mean [Right Arm] Pulse Oximetry 92 Oxygen Delivery Method Oxymask Oxygen Flow Rate 5 Sepsis Recent Fever Within 48 Hours Sepsis New/Unexplained Change in Mental Status Sepsis Action Taken by Nursing Oxygen Flow Rate - Titration Pulse Oximetry Post Tiitration Laboratory Data 10/21/24 19:51 10/21/24 19:51 Lab Results 10/21/24 10/21/24 10/21/24 Range/Units 19:51 19:57 Unknown WBC 13.02 H (4.8-10.8) K/ul RBC 4.19 L (4.20-5.40) M/uL Hgb 13.6 (12.0-16.0) g/dl POC Hgb 13.9 (12.0-16.0) g/dl Hct 42.3 (37.0-47.0) % POC Hct 41 (37-47) % MCV 101.0 H (80.0-100.0) fL MCH 32.5 (25.0-34.0) pg MCHC 32.2 (32.0-36.0) g/dL RDW Std Deviation 49.8 H (36.4-46.3) fL RDW Coeff of Naman 13.4 (11.5-14.5) % Plt Count 211 (130-400) K/uL MPV 11.3 (9.4-12.4) fL Immature Gran % (Auto) 0.2 % Neut % (Auto) 86.0 % Lymph % (Auto) 7.1 % [place] % (Auto) 6.1 % Eos % (Auto) 0.3 % Baso % (Auto) 0.3 % Neut # (Auto) 11.19 H (1.40-6.50) K/uL Lymph # (Auto) 0.92 L (1.20-3.40) K/uL [place] # (Auto) 0.80 H (0.11-0.59) K/uL Eos # (Auto) 0.04 (0.00-0.50) K/uL Baso # (Auto) 0.04 (0.00-0.20) K/uL Immature Gran # (Auto) 0.03 (0.01-0.20) K/uL PT 10.7 (9.0-12.0) Seconds INR 1.0 (0.9-1.1) POC Sodium 137 (135-144) mmol/L Sodium 135 L (136-145) mmol/L POC Potassium 4.5 (3.3-5.0) mmol/L Potassium 4.5 (3.5-5.1) mmol/L POC Chloride 108 (101-112) mmol/L Chloride 107 (98-107) mmol/L Carbon Dioxide 22 (21-32) mmol/L POC Total CO2 20 L (24-31) mmol/L Anion Gap 6 (3-11) POC Anion Gap 15.0 L (16-25) mmol/L POC BUN 15 (7-18) mg/dl BUN 15 (6-23) mg/dl Creatinine 0.89 (0.6-1.2) mg/dl POC Creatinine 0.9 (0.6-1.3) mg/dl Est Cr Clr Drug Dosing Not Reportable eGFR 70.14 BUN/Creatinine Ratio 16.9 (10-20) Glucose 146 H (70-99(Fasting)) mg/dl POC Glucose (other) 141 H (70-99) mg/dl Lactate 1.4 (0.4-2.0) mmol/L Calcium 9.7 (8.6-10.3) mg/dl POC Ioniz Calcium Yandel 1.31 (1.12-1.32) mmol/l Magnesium 1.8 (1.7-2.4) mg/dl Total Bilirubin 0.4 (0.2-1.0) mg/dl AST 24 (13-39) U/L ALT 27 (7-52) U/L Alkaline Phosphatase 87 (34-104) U/L Total Creatine Kinase 16 L (26-192) U/L Troponin I High Sens 5.0 (0-14) pg/ml B-Natriuretic Peptide 249 H (0-100) pg/ml Total Protein 7.9 (6.0-8.3) gm/dl Albumin 4.4 (3.4-5.0) gm/dl Globulin 3.5 (2.5-4.0) gm/dl Albumin/Globulin Ratio 1.3 (0.9-2) Lipase 14 (11-82) U/L Procalcitonin 0.05 (0-0.5) ng/ml TSH 1.741 (0.300-4.500) uIu/ml Adenovirus (PCR) Not Detected (NotDetected) B. pertussis DNA (PCR) Not Detected (NotDetected) B.parapertussis DNA PCR Not Detected (NotDetected) C. pneumoniae DNA (PCR) Not Detected (NotDetected) Coronavirus OC43 (PCR) Not Detected (NotDetected) Coronavirus HKU1 (PCR) Not Detected (NotDetected) Coronavirus 229E (PCR) Not Detected (NotDetected) SARS-CoV-2 (PCR) Not Detected (NotDetected) Coronavirus NL63 (PCR) DETECTED A (NotDetected) Human Metapneumovir PCR Not Detected (NotDetected) Influenza Type A (PCR) Not Detected (NotDetected) Influenza Type B (PCR) Not Detected (NotDetected) M. pneumoniae (PCR) Not Detected (NotDetected) Parainfluenza 1 (PCR) Not Detected (NotDetected) Parainfluenza 2 (PCR) Not Detected (NotDetected) Parainfluenza 3 (PCR) Not Detected (NotDetected) Parainfluenza 4 (PCR) Not Detected (NotDetected) RSV (PCR) Not Detected (NotDetected) Entero/Rhino (PCR) Not Detected (NotDetected) Administered Medications Discontinued Medications Albuterol (Albut/Ipratrop 3mg/0.5mg Neb 3 Ml Vial) 3 ml NEB NOW STA; Protocol Stop: 10/21/24 21:39 Last Admin: 10/21/24 21:51 Dose: 3 ml Documented By: ANTONIO Sodium Chloride (Nss) 500 mls @ 999 mls/hr IV .Q31M ONE Stop: 10/21/24 20:09 Last Infusion: 10/21/24 20:38 Dose: Infused Documented By: Admin: 10/21/24 20:00 Dose: 999 mls/hr Documented By: ANTONIO Methylprednisolone (Methylprednisolone 125 Mg/2 Ml Vial) 40 mg IV NOW STA Stop: 10/21/24 21:39 Last Admin: 10/21/24 21:51 Dose: 40 mg Documented By: ANTONIO Ondansetron HCl (Ondansetron Inj 2 Mg/Ml 2 Ml Vial) 4 mg IV NOW STA Stop: 10/21/24 19:40 Last Admin: 10/21/24 20:00 Dose: 4 mg Documented By: ANTONIO Imaging Data Radiologist's Impression: Chest X-Ray 10/21/24 19:40 INDICATION: Difficulty breathing. TECHNIQUE: Frontal radiograph of the chest. COMPARISON: Radiograph from 08/30/2024. FINDINGS: Cardiomegaly. Mild pulmonary vascular congestion. Small left pleural effusion. Subsegmental atelectasis in the left lung base. No infiltrate or pneumothorax. No acute osseous abnormality evident. IMPRESSION: Mild pulmonary vascular congestion. Small left pleural effusion. Electronically signed by Mark Alvarez 10-21-2024 7:55 PM Discharge Plan Visit Data Chief Complaint: Vomiting Stated Complaint: CHRONIC DIARRHEA, VOMITING, WEAKNESS ED Provider: Lazaro Carlisle Discharge Problem: Coronavirus infection, Hypoxia, Nausea & vomiting, Weakness Patient Disposition: Admitted As Inpatient Discharge Instructions Interventions: ED Discharge Assessment Last Done: 10/22/24 00:24 Forms Stand Alone Forms: My [facility] Prescriptions Prescriptions: No Action loperamide 2 mg capsule 2 mg PO TID PRN (Reason: Diarrhea) pravastatin 40 mg tablet 40 mg PO HS metoprolol succinate 50 mg tablet extended release 24 hr 50 mg PO BID gabapentin 400 mg capsule 400 mg PO TID hydralazine 25 mg tablet 25 mg PO TID omeprazole 40 mg capsule,delayed release(DR/EC) 40 mg PO DAILY spironolactone 25 mg tablet 25 mg PO DAILY potassium chloride 20 mEq tablet,ER particles/crystals 20 meq PO DAILY magnesium oxide 400 mg (241.3 mg magnesium) tablet 400 mg PO DAILY calcitonin (salmon) 200 unit/actuation spray,non-aerosol 1 spray intranasal DAILY trazodone 150 mg tablet 150 mg PO HS lorazepam 1 mg tablet 1 mg PO QID PRN (Reason: Anxiety) albuterol sulfate 90 mcg/actuation HFA aerosol inhaler 2 inh INHALATION Q4H PRN (Reason: Shortness Of Breath Or Wheezing) losartan 100 mg tablet 100 mg PO DAILY fluticasone propionate 50 mcg/actuation spray,suspension 1 spray INTRANASAL BID Eliquis 5 mg tablet 5 mg PO BID Referrals Referrals: Akbar Daniel DO [Primary Care Provider] -
[2024-10-21 20:26] LABS: Basophils # (auto) 0.04 K/uL (0.00-0.20); Basophils % (auto) 0.3 %; Eosinophils # (auto) 0.04 K/uL (0.00-0.50); Eosinophils % (auto) 0.3 %; Hematocrit (blood only) 42.3 % (37.0-47.0); Hemoglobin 13.6 g/dl (12.0-16.0); Immature Granulocytes # (auto) 0.03 K/uL (0.01-0.20); Immature Granulocytes % (auto) 0.2 %; Lymphocytes # (auto) 0.92 K/uL (1.20-3.40); Lymphocytes % (auto) 7.1 %; Mean Corpuscular Hemoglobin 32.5 pg (25.0-34.0); Mean Corpuscular Hgb Conc 32.2 g/dL (32.0-36.0); Mean Platelet Volume 11.3 fL (9.4-12.4); Monocytes % (auto) 6.1 %; Neutrophils # (auto) 11.19 K/uL (1.40-6.50); Platelet Count 211 K/uL (130-400); RDW Coefficient of Variation 13.4 % (11.5-14.5); RDW Standard Deviation 49.8 fL (36.4-46.3); Red Blood Count 4.19 M/uL (4.20-5.40); White Blood Count 13.02 K/ul (4.8-10.8)
[2024-10-21 20:29] LABS: iSTAT Creatinine 0.9 mg/dl (0.6-1.3); iSTAT Hemoglobin 13.9 g/dl (12.0-16.0); iSTAT Ionized Calcium 1.31 mmol/l (1.12-1.32); iSTAT Potassium 4.5 mmol/L (3.3-5.0)
[2024-10-21 20:36] LABS: Alanine Aminotransferase 27 U/L (7-52); Albumin Globulin Ratio 1.3 (0.9-2); Albumin Level 4.4 gm/dl (3.4-5.0); Alkaline Phosphatase 87 U/L (34-104); Anion Gap 6 (3-11); Aspartate Aminotransferase 24 U/L (13-39); BUN Creatinine Ratio 16.9 (10-20); Bilirubin,Total 0.4 mg/dl (0.2-1.0); Blood Urea Nitrogen 15 mg/dl (6-23); Calcium 9.7 mg/dl (8.6-10.3); Carbon Dioxide 22 mmol/L (21-32); Chloride 107 mmol/L (98-107); Creatine Kinase 16 U/L (26-192); Globulin 3.5 gm/dl (2.5-4.0); Glucose 146 mg/dl (70-99(Fasting)); Magnesium 1.8 mg/dl (1.7-2.4); Potassium 4.5 mmol/L (3.5-5.1); Sodium 135 mmol/L (136-145); Total Protein 7.9 gm/dl (6.0-8.3)
[2024-10-21 20:49] LABS: Prothrombin Time 10.7 Seconds (9.0-12.0)
[2024-10-21 20:50] LABS: Thyroid Stimulating Hormone 1.741 uIu/ml (0.300-4.500)
[2024-10-21 21:25] LABS: Adenovirus PCR Not Detected (NotDetected); Bordetella parapertussis PCR Not Detected (NotDetected); Bordetella pertussis PCR Not Detected (NotDetected); Chlamydia pneumoniae PCR Not Detected (NotDetected); Coronavirus 229E PCR Not Detected (NotDetected); Coronavirus CoV-2 (COVID19)PCR Not Detected (NotDetected); Coronavirus HKU1 PCR Not Detected (NotDetected); Coronavirus NL63 PCR DETECTED (NotDetected); Coronavirus OC43PCR Not Detected (NotDetected); Human Metapneumovirus PCR Not Detected (NotDetected); Influenza A PCR Not Detected (NotDetected); Influenza B PCR Not Detected (NotDetected); Mycoplasma pneumoniae PCR Not Detected (NotDetected); Parainfluenza Virus 1 PCR Not Detected (NotDetected); Parainfluenza Virus 2 PCR Not Detected (NotDetected); Parainfluenza Virus 3 PCR Not Detected (NotDetected); Parainfluenza Virus 4 PCR Not Detected (NotDetected); Respiratory Syncytial VirusPCR Not Detected (NotDetected); Rhinovirus/Enterovirus PCR Not Detected (NotDetected)
[2024-10-21 21:35] LABS: Lipase 14 U/L (11-82)
[2024-10-21] MEDS: methylPREDNISolone 125 MG/2 ML VIAL IV STA (21:51)
[2024-10-21] MEDS: ALBUT/IPRATROP 3MG/0.5MG NEB 3 ML VIAL NEB STA (21:51)
--- NOTE | 2024-10-22 00:02 | History & Physical Report ---
Date of Service October 21, 2024 Assessment & Plan (1) Hypoxia: Plan: 68-year-old female with past medical history significant for type 2 diabetes, dyslipidemia, COPD, CAD status post CABG, chronic heart failure with reduced ejection fraction, paroxysmal atrial fibrillation, peripheral artery disease status post femoral-popliteal bypass surgery, hypertension, B12 deficiency, osteoporosis, compression of lumbar vertebra, backache, migraine, iron deficiency anemia, tobacco use disorder, anxiety disorder comes because of nausea and vomiting started today morning. Patient states had vomiting and also having a lot of dry heaves and was not getting better so she came to the ER. Currently her abdominal feels better and she wants to eat. In the ER her oxygen sats were 75% and requiring 5 L oxy mask. Patient denies any shortness breath currently. Denies chest pain. Denies any fevers. No cough. No headache. Vision is okay. No runny nose. Currently no abdominal pain. Has chronic diarrhea.Normal bladder movements as per patient. Currently hemo dynamics are okay. Hypoxia on the floor requiring high flow patient seems comfortable CTA chest No Pe but shows some subsegmental atelectasis Continue oxygen supplementation No obvious wheezing Nebs as needed Empiric Unasyn for possible aspiration for now pulmonary consulted Nausea and vomiting Seems improving Clears for now Metabolic acidosis possible from chronic diarrhea ordered half amp of sod bicarb will follow stool studies GI and nephro consulted Coronavirus NL 63 positive Supportive care Droplet precautions Chronic systolic CHF EF 40 to 45% on echo on 09/09 Holding spironolactone Getting fluids Monitor for volume overload History of COPD Continue home inhalers nebs as needed History of CAD status post CABG Continue Eliquis, metoprolol succinate and statin Hypertension Continue metoprolol succinate, Holding losartan and hydralazine and aldactone as BP soft currently Chronic diarrhea On Loperamide as needed will follow stool studies Type 2 diabetes not on meds Will monitor Chronic back pain On gabapentin Hyperlipidemia On statin GERD Omeprazole Iron deficiency anemia B12 deficiency Hemoglobin okay History of hypokalemia and hypomagnesia Continue home supplements We will monitor DVT prophylaxis On Eliquis Disposition Telemetry Full code. History of Present Illness Chief Complaint: Nausea and vomiting Primary Care Provider: Akbar Daniel DO 68-year-old female with past medical history significant for type 2 diabetes, dyslipidemia, COPD, CAD status post CABG, chronic heart failure with reduced ejection fraction, paroxysmal atrial fibrillation, peripheral artery disease status post femoral-popliteal bypass surgery, hypertension, B12 deficiency, osteoporosis, compression of lumbar vertebra, backache, migraine, iron deficiency anemia, tobacco use disorder, anxiety disorder comes because of nausea and vomiting started today morning. Patient states had vomiting and also having a lot of dry heaves and was not getting better so she came to the ER. Currently her abdominal feels better and she wants to eat. In the ER her oxygen sats were 75% and requiring 5 L oxy mask. Patient denies any shortness breath currently. Denies chest pain. Denies any fevers. No cough. No h eadache. Vision is okay. No runny nose. Currently no abdominal pain. Has chronic diarrhea. Normal bladder movements as per patient. Currently hemodynamics are okay. Past medical history. As mentioned above Past surgical history. CABG. Small bowel resection. Appendectomy. Bilateral cataracts. Cholecystectomy. Partial removal of pancreas. Multimodal stomach. Tonsillectomy adenectomy. Social history. . Smoked 1 pack a day for 58 years. No alcohol use. No drug use. Family history. No family history on file Allergies Allergy/AdvReac Type Severity Reaction Status Date / Time benzyl alcohol Allergy Severe Anaphylaxis Verified 08/15/23 05:44 Iodinated Contrast Media Allergy Severe Rash - IVP Verified 08/15/23 05:44 dye lisinopril Allergy Severe chills,sera Verified 08/15/23 05:44 rs prochlorperazine Allergy Severe Anaphylaxis Verified 08/15/23 05:44 saccharin Allergy Severe Anaphylaxis Verified 08/15/23 05:44 simvastatin Allergy Intermediate itching Verified 08/15/23 05:44 furosemide Allergy Mild rash Verified 08/15/23 05:44 promethazine Allergy Mild rash Verified 08/15/23 05:44 Home Medications Medication Instructions Recorded Confirmed Type albuterol sulfate 90 mcg/actuation 2 inh inhalation Q4H PRN Shortness 10/21/24 10/21/24 History aerosol inhaler Of Breath Or Wheezing apixaban 5 mg tablet (Eliquis) 5 mg PO BID 10/21/24 10/21/24 History calcitonin (salmon) 200 1 spray intranasal DAILY 10/21/24 10/21/24 History unit/actuation nasal spray fluticasone propionate 50 1 spray intranasal BID 10/21/24 10/21/24 History mcg/actuation nasal spray,suspension gabapentin 400 mg capsule 400 mg PO TID 10/21/24 10/21/24 History hydralazine 25 mg tablet 25 mg PO TID 10/21/24 10/21/24 History loperamide 2 mg capsule 2 mg PO TID PRN Diarrhea 10/21/24 10/21/24 History lorazepam 1 mg tablet 1 mg PO QID PRN Anxiety 10/21/24 10/21/24 History losartan 100 mg tablet 100 mg PO DAILY 10/21/24 10/21/24 History magnesium oxide 400 mg (241.3 mg 400 mg PO DAILY 10/21/24 10/21/24 History magnesium) tablet metoprolol succinate 50 mg 50 mg PO BID 10/21/24 10/21/24 History tablet,extended release 24 hr omeprazole 40 mg capsule,delayed 40 mg PO DAILY 10/21/24 10/21/24 History release potassium chloride 20 mEq 20 meq PO DAILY 10/21/24 10/21/24 History tablet,extended release(part/cryst) pravastatin 40 mg tablet 40 mg PO HS 10/21/24 10/21/24 History spironolactone 25 mg tablet 25 mg PO DAILY 10/21/24 10/21/24 History trazodone 150 mg tablet 150 mg PO HS 10/21/24 10/21/24 History Past Med/Surg History Problem List (Updated 10/22/24 @ 00:36 by Lazaro Carlisle M.D.) Weakness (Acute) Nausea & vomiting (Acute) Hypoxia (Acute) Coronavirus infection (Acute) Hypoxia Hypertensive urgency Altered mental status NSTEMI (non-ST elevated myocardial infarction) Elevated troponin Hypotension ASCVD (arteriosclerotic cardiovascular disease) Encephalopathy (Acute) Colitis Chronic HFrEF (heart failure with reduced ejection fraction) EF 40-45% per 09/2022 ECHO HAYDEN (acute kidney injury) (Acute) Generalized weakness Paroxysmal atrial fibrillation Atherosclerosis of artery of both lower extremities Current smoker COPD with emphysema Polycythemia Prediabetes pt denies PAD (peripheral artery disease) Myocardial Infarction unsure of date - 2009 or earlier. Hyperlipidemia Hypertension GERD (gastroesophageal reflux disease) Well controlled and stable Anxiety CAD (coronary artery disease) CABG x 4 2002, CABG x 3 2009 Patent PONCE to LAD, vein graft to diagonal and obtuse marginal, and collaterals from RCA by catheterization 01/2017; No new blockages/ischemia seen on stress test 9 Anemia s/p iron infusions- last iron infusion June 2023 Medical History CHF (congestive heart failure) EF 40-45% per 09/2022 ECHO Closed fracture of left proximal humerus Ileus, postoperative Postoperative fever Acute blood loss as cause of postoperative anemia Atrial fibrillation On Eliquis Ischemic cardiomyopathy History of panic attacks worse with large groups History of stomach ulcers 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 follows with Dr Borja ([place]) Family history of reaction to anesthesia DAUGHTER>SLOW TO WAKE UP History of esophagogastroduodenoscopy (EGD) History of colonoscopy H/O abdominal surgery 25-30 YEARS AGO>PART OF STOMACH/COLON/PANCREAS REMOVED D/T STOMACH ULCER History of tooth extraction History of cataract surgery RT/LEFT History of cardiac cath [facility]IP[facility] C[facility]S [facility] most recently done in the last five years (4783-8811) done at [facility]. no stents. History of total hysterectomy History of cholecystectomy History of appendectomy Family History Daughter Family hx of colon cancer Family history of diabetes mellitus FHx: thyroid cancer Sister Family history of diabetes mellitus Brother FHx: kidney cancer Family history of diabetes mellitus FHx: pancreatic cancer Social History Smoking Status: Current every day smoker Tobacco Type: Cigarettes Cigarettes Per Day: 1 pack per day since the age of 9; Second Hand Exposure: Yes; Do You Dip or Chew Tobacco: No; Hx Alcohol Use: No Hx Substance Use: No Preferred Language: Northern Irish Communication Ability: Effective Dispatcher Tow Truck Required: No Beliefs That Will Affect Care: None Current Living Situation: Spouse Current Living Situation Comment: 2 story home, only lives on 1 floor Feels Safe at Home: Yes Assistive Devices: Cane Review of Systems Review of Systems: All systems reviewed & are unremarkable except as noted in HPI & below Physical Exam Physical Exam: General- Not in acute distress Head- atraumatic Eyes- PERRL. ENT- oropharynx clear Neck- supple, no JVD. Lungs- clear to auscultation no wheezing or crackles Heart- regular rate and rhythm; no murmur, no gallop. Abdomen- normal bowel sounds, soft, nontender, no distension Extremities- no pretibial edema, no erythema seen. Neuro- alert, oriented PERRL, no facial palsy; no dysarthria; moves extremities Results & Data Results & Data Vital Signs (Past 12 Hours) Vital Signs Temp Pulse Pulse Resp BP BP Pulse Ox 10/21/24 21:30 84 18 132/79 93 10/21/24 20:26 93 10/21/24 19:44 75 L 10/21/24 19:36 90 10/21/24 19:25 37.2 C 92 H 18 119/60 75 L O2 Del Method O2 Flow Rate 10/21/24 21:30 Oxymask 5 10/21/24 20:26 Oxymask 5 10/21/24 19:44 Room Air, Oxymask 0 10/21/24 19:36 10/21/24 19:25 Room Air Diagnostic Findings Laboratory Results WBC 13.02 K/ul (4.8-10.8) H 10/21/24 19:51 RBC 4.19 M/uL (4.20-5.40) L 10/21/24 19:51 Hgb 13.6 g/dl (12.0-16.0) 10/21/24 19:51 POC Hgb 13.9 g/dl (12.0-16.0) 10/21/24 19:57 Hct 42.3 % (37.0-47.0) 10/21/24 19:51 POC Hct 41 % (37-47) 10/21/24 19:57 MCV 101.0 fL (80.0-100.0) H 10/21/24 19:51 MCH 32.5 pg (25.0-34.0) 10/21/24 19:51 MCHC 32.2 g/dL (32.0-36.0) 10/21/24 19:51 RDW Std Deviation 49.8 fL (36.4-46.3) H 10/21/24 19:51 RDW Coeff of Naman 13.4 % (11.5-14.5) 10/21/24 19:51 Plt Count 211 K/uL (130-400) 10/21/24 19:51 MPV 11.3 fL (9.4-12.4) 10/21/24 19:51 Immature Gran % (Auto) 0.2 % 10/21/24 19:51 Neut % (Auto) 86.0 % 10/21/24 19:51 Lymph % (Auto) 7.1 % 10/21/24 19:51 [place] % (Auto) 6.1 % 10/21/24 19:51 Eos % (Auto) 0.3 % 10/21/24 19:51 Baso % (Auto) 0.3 % 10/21/24 19:51 Neut # (Auto) 11.19 K/uL (1.40-6.50) H 10/21/24 19:51 Lymph # (Auto) 0.92 K/uL (1.20-3.40) L 10/21/24 19:51 [place] # (Auto) 0.80 K/uL (0.11-0.59) H 10/21/24 19:51 Eos # (Auto) 0.04 K/uL (0.00-0.50) 10/21/24 19:51 Baso # (Auto) 0.04 K/uL (0.00-0.20) 10/21/24 19:51 Immature Gran # (Auto) 0.03 K/uL (0.01-0.20) 10/21/24 19:51 PT 10.7 Seconds (9.0-12.0) 10/21/24 19:51 INR 1.0 (0.9-1.1) 10/21/24 19:51 POC Sodium 137 mmol/L (135-144) 10/21/24 19:57 Sodium 135 mmol/L (136-145) L 10/21/24 19:51 POC Potassium 4.5 mmol/L (3.3-5.0) 10/21/24 19:57 Potassium 4.5 mmol/L (3.5-5.1) 10/21/24 19:51 POC Chloride 108 mmol/L (101-112) 10/21/24 19:57 Chloride 107 mmol/L (98-107) 10/21/24 19:51 Carbon Dioxide 22 mmol/L (21-32) 10/21/24 19:51 POC Total CO2 20 mmol/L (24-31) L 10/21/24 19:57 Anion Gap 6 (3-11) 10/21/24 19:51 POC Anion Gap 15.0 mmol/L (16-25) L 10/21/24 19:57 POC BUN 15 mg/dl (7-18) 10/21/24 19:57 BUN 15 mg/dl (6-23) 10/21/24 19:51 Creatinine 0.89 mg/dl (0.6-1.2) 10/21/24 19:51 POC Creatinine 0.9 mg/dl (0.6-1.3) 10/21/24 19:57 Est Cr Clr Drug Dosing Not Reportable 10/21/24 19:51 eGFR 70.14 10/21/24 19:51 BUN/Creatinine Ratio 16.9 (10-20) 10/21/24 19:51 Glucose 146 mg/dl (70-99(Fasting)) H 10/21/24 19:51 POC Glucose (other) 141 mg/dl (70-99) H 10/21/24 19:57 Lactate 1.4 mmol/L (0.4-2.0) 10/21/24 19:51 Calcium 9.7 mg/dl (8.6-10.3) 10/21/24 19:51 POC Ioniz Calcium Yandel 1.31 mmol/l (1.12-1.32) 10/21/24 19:57 Magnesium 1.8 mg/dl (1.7-2.4) 10/21/24 19:51 Total Bilirubin 0.4 mg/dl (0.2-1.0) 10/21/24 19:51 AST 24 U/L (13-39) 10/21/24 19:51 ALT 27 U/L (7-52) 10/21/24 19:51 Alkaline Phosphatase 87 U/L (34-104) 10/21/24 19:51 Total Creatine Kinase 16 U/L (26-192) L 10/21/24 19:51 Troponin I High Sens 5.0 pg/ml (0-14) 10/21/24 19:51 B-Natriuretic Peptide 249 pg/ml (0-100) H 10/21/24 19:51 Total Protein 7.9 gm/dl (6.0-8.3) 10/21/24 19:51 Albumin 4.4 gm/dl (3.4-5.0) 10/21/24 19:51 Globulin 3.5 gm/dl (2.5-4.0) 10/21/24 19:51 Albumin/Globulin Ratio 1.3 (0.9-2) 10/21/24 19:51 Lipase 14 U/L (11-82) 10/21/24 19:51 Procalcitonin 0.05 ng/ml (0-0.5) 10/21/24 19:51 TSH 1.741 uIu/ml (0.300-4.500) 10/21/24 19:51 Adenovirus (PCR) Not Detected (NotDetected) 10/21/24 Unknown B. pertussis DNA (PCR) Not Detected (NotDetected) 10/21/24 Unknown B.parapertussis DNA PCR Not Detected (NotDetected) 10/21/24 Unknown C. pneumoniae DNA (PCR) Not Detected (NotDetected) 10/21/24 Unknown Coronavirus OC43 (PCR) Not Detected (NotDetected) 10/21/24 Unknown Coronavirus HKU1 (PCR) Not Detected (NotDetected) 10/21/24 Unknown Coronavirus 229E (PCR) Not Detected (NotDetected) 10/21/24 Unknown SARS-CoV-2 (PCR) Not Detected (NotDetected) 10/21/24 Unknown Coronavirus NL63 (PCR) DETECTED (NotDetected) A 10/21/24 Unknown Human Metapneumovir PCR Not Detected (NotDetected) 10/21/24 Unknown Influenza Type A (PCR) Not Detected (NotDetected) 10/21/24 Unknown Influenza Type B (PCR) Not Detected (NotDetected) 10/21/24 Unknown M. pneumoniae (PCR) Not Detected (NotDetected) 10/21/24 Unknown Parainfluenza 1 (PCR) Not Detected (NotDetected) 10/21/24 Unknown Parainfluenza 2 (PCR) Not Detected (NotDetected) 10/21/24 Unknown Parainfluenza 3 (PCR) Not Detected (NotDetected) 10/21/24 Unknown Parainfluenza 4 (PCR) Not Detected (NotDetected) 10/21/24 Unknown RSV (PCR) Not Detected (NotDetected) 10/21/24 Unknown Entero/Rhino (PCR) Not Detected (NotDetected) 10/21/24 Unknown Impressions Chest X-Ray 10/21/24 19:40 INDICATION: Difficulty breathing. TECHNIQUE: Frontal radiograph of the chest. COMPARISON: Radiograph from 08/30/2024. FINDINGS: Cardiomegaly. Mild pulmonary vascular congestion. Small left pleural effusion. Subsegmental atelectasis in the left lung base. No infiltrate or pneumothorax. No acute osseous abnormality evident. IMPRESSION: Mild pulmonary vascular congestion. Small left pleural effusion. Electronically signed by Mark Alvarez 10-21-2024 7:55 PM ECG Additional Comments: ECG. Sinus rhythm with marked sinus arrhythmia with occasional PVCs and PACs rate of 89. Left ventricle hypertrophy. ST depression lateral leads. Code Status & VTE Plan VTE Prophylaxis Plan VTE Prophylaxis will be ordered: Yes
[2024-10-22] MEDS ORDERED: NITROGLYCERIN SL 0.4 MG/TAB TAB SL PRN (00:51)
[2024-10-22] MEDS ORDERED: ALBUTEROL HFA 8 GM INHALER INH PRN (00:51)
[2024-10-22] MEDS ORDERED: ONDANSETRON INJ 2 MG/ML 2 ML VIAL IV PRN (00:51)
[2024-10-22] MEDS: diphenhydrAMINE 50 MG/ML VIAL IV ONE ×2 (01:45→01:55)
[2024-10-22] MEDS: methylPREDNISolone 125 MG/2 ML VIAL IV ONE (01:46)
[2024-10-22] MEDS: SODIUM CHLORIDE 0.9% 1,000 ML IV SCH (01:46)
[2024-10-22] MEDS: APIXABAN 5 MG TABLET PO STA (01:50)
[2024-10-22 01:52] LABS: Base Excess ABG -8.9 mEq/L (-9-1.8); HCO3 ABG 18 mmol/L (19-24); Oxygen Saturation ABG 95.6 % (90-95); PCO2 ABG 44 mmHg (35-46); PO2 ABG 86 mmHg (80-95); pH ABG 7.23 (7.35-7.45)
[2024-10-22 01:55] LABS: Allen Test Pos (Pos)
[2024-10-22] MEDS: NICOTINE 21 MG/24 HR TDSY TD SCH (02:04)
[2024-10-22] MEDS: AMPICILLIN/SULBACTAM SOD 3,000 MG/100 ML BAG IV SCH (02:04)
[2024-10-22] MEDS: OPTIRAY 320 125ml IV ONE (02:56)
--- NOTE | 2024-10-22 03:20 | CT Scan Report ---
EXAM: CT angio chest PE protocol CLINICAL HISTORY: PE TECHNIQUE: Contiguous axial images were obtained from the neck base through the upper abdomen following intravenous administration of iodinated contrast material. Angiographic images were processed, 3D MIP images were acquired for interpretation. If IV contrast material had not been administered, the likelihood of detecting abnormalities relevant to the patient's condition would have been substantially decreased. Coronal and sagittal 3-D MIPs were likewise performed and indicated to increase the sensitivity of detectin diffuse clinically relevant pathology. CT scan was performed according to ALARA (as low as reasonably achievable). COMPARISON: none FINDINGS: Adequate contrast bolus without evidence of pulmonary embolism. The central airways are patent. Subsegmental atelectasis seen in posterobasal segment of right lower lobe, medial segment of right middle lobe and lingula. No pleural effusion. Cardiomegaly is seen. Enlarged pulmonary trunk and right and left pulmonary arteries. The aorta, and pulmonary arteries are of normal size and configuration. There are no appreciable coronary artery and aortic atherosclerotic calcifications. No pericardial effusion is identified. The thyroid is unremarkable. No mediastinal, hilar, or axillary lymphadenopathy is noted. No suspicious lytic or sclerotic osseous lesions are identified. IMPRESSION: 1. No evidence of pulmonary embolism. 2. Enlarged pulmonary trunk and right and left pulmonary arteries- pulmonary arterial hypertension. 3. Subsegmental atelectasis seen in posterobasal segment of right lower lobe, medial segment of right middle lobe and lingula. Electronically signed by Reggie Husain 10-22-2024 03:19 AM
[2024-10-22 03:21] LABS: Appearance Urine Clear (Clear); Bacteria Urine Automated None Seen (None Seen); Bilirubin Urine Negative (Negative); Blood Urine Negative (Negative); Cast Urine Automated 0-2 /lpf (0-2); Color Urine Yellow; Glucose Urine UA Negative (Negative); Ketones Urine Trace (Negative); Leukocyte Esterase Urine Negative (Negative); Nitrite Urine Negative (Negative); Protein Urine 1+ (Negative); RBC Urine Automated 0-2 /hpf (0-2); Urobilinogen Urine Negative (Negative); WBC Urine Automated 0-5 /hpf (0-5); pH Urine 5.5 (4.5-7.5)
[2024-10-22] MEDS: SODIUM BICARB 8.4% INJ 50 MEQ/50 ML SYR IV STA (04:23)
[2024-10-22 04:59] LABS: Base Excess VBG -6.4 mEq/L; HCO3 VBG 21 mmol/L; Oxygen Saturation VBG 85.7 %; PCO2 VBG 48 mmHg (38-50); PO2 VBG 54 mmHg; pH VBG 7.25 (7.36-7.41)
[2024-10-22 05:03] LABS: Basophils # (auto) 0.01 K/uL (0.00-0.20); Basophils % (auto) 0.2 %; Hematocrit (blood only) 34.5 % (37.0-47.0); Hemoglobin 11.4 g/dl (12.0-16.0); Immature Granulocytes # (auto) 0.03 K/uL (0.01-0.20); Immature Granulocytes % (auto) 0.5 %; Lymphocytes % (auto) 8.4 %; Mean Corpuscular Hemoglobin 33.4 pg (25.0-34.0); Mean Corpuscular Volume 101.2 fL (80.0-100.0); Mean Platelet Volume 10.8 fL (9.4-12.4); Monocytes # (auto) 0.06 K/uL (0.11-0.59); Neutrophils # (auto) 5.36 K/uL (1.40-6.50); Neutrophils % (auto) 89.9 %; Platelet Count 144 K/uL (130-400); RDW Coefficient of Variation 13.2 % (11.5-14.5); Red Blood Count 3.41 M/uL (4.20-5.40); White Blood Count 5.96 K/ul (4.8-10.8)
[2024-10-22 05:20] LABS: BUN Creatinine Ratio 19.5 (10-20); Calcium 8.4 mg/dl (8.6-10.3); Creatinine Clr Calc Pharmacy 53.6 ml/min; Magnesium 1.8 mg/dl (1.7-2.4); Potassium 4.6 mmol/L (3.5-5.1)
[2024-10-22 05:27] LABS: Troponin I High Sensitivity 5.5 pg/ml (0-14)
--- OUTSIDE RECORDS SUMMARY | 2024-10-22 06:07 | External Medical Summary | Summary of Care ---
Author Name Unknown Organization [facility] Address [address] [place] [place] [address] Phone [phone] Care Team Providers Care Director Phone Name Role Phone DanielAkbarrazia Primary Care Provider Encounter Details Date Type Department Care Team (Late st Contact Info) Description 10/09/2024 Telephone Family Practice [facility] [address] [place] [address] Emani Parikh CRNP [address] [place] [address] Allergies Active Allergy Reactions Criticality Noted Date [...] as of this encounter (statuses as of 10/16/2024) Medications LORAZEPAM 1 MG PO TABSIndications:Pt also taking 1 tab in evening. Take 1 Tablet by mouth in the morning and 1 Tablet at noon and 1 Tablet before bedtime. Active NITROGLYCERIN 0.4 MG SL SUBLIndications:Ch ronic coronary artery disease,S/P coronary artery bypass with four autogenous grafts as needed 25 Tab 5 10/16/19 12 Active Eliquis 5 MG Oral Tablet Take 1 Tablet by mouth in the morning and 1 Tablet before bedtime. 08/17/20 22 Active Pravastatin Sodium 40 MG Oral Tablet (Pravachol)Indicat ions:Coronary artery disease involving autologous vein coronary bypass graft without angina pectoris TAKE 1 TABLET BY MOUTH EVERYDAY AT BEDTIME 90 Tablet 3 01/04/20 24 Active Iron Dextran 50 MG/ML Injection Solution (Infed) Administer 50 mg intravenously. Receives infusions for 3 weeks, three times a year. 07/17/20 23 Active Calcitonin ([place]) 200 UNIT/ACT Nasal Solution (Fortical)Indicati ons:Compression fracture of lumbar vertebra, unspecified lumbar vertebral level, initial encounter ([facility]) Administer 1 [place] into one nostril in the morning. alternate nostrils.. 3 mL 11 06/26/20 24 Active Omeprazole 40 MG Oral Capsule Delayed Release (PriLOSEC)Indicati ons:GERD (gastroesophageal reflux disease) TAKE 1 CAPSULE BY MOUTH IN THE MORNING AND BEFORE BEDTIME 180 Capsule 1 07/03/20 24 Active Gabapentin 400 MG Oral Capsule (Neurontin) Take 1 Capsule by mouth in the morning and 1 Capsule at noon and 1 Capsule before bedtime. 09/05/20 24 Active Losartan Potassium 50 MG Oral Tablet (Cozaar)Indication s:Chronic HFrEF (heart failure with reduced ejection fraction) ([facility]) Take 2 Tablets by mouth in the morning. 09/08/20 24 Active Diphenoxylate-Atro pine 2.5-0.025 MG/5ML Oral Liquid (Lomotil)Indicatio ns:Chronic diarrhea Take 5 mL by mouth every evening. 60 mL 5 09/09/20 24 Active Additional Information Patient not taking.Reported on 10/08/2024 Saccharomyces boulardii 250 MG Oral Capsule (Florastor)Indicat ions:Recurrent Clostridioides difficile diarrhea Take 1 Capsule by mouth in the morning and 1 Capsule before bedtime. 180 Capsule 3 09/09/20 24 Active Fluticasone Propionate 50 MCG/ACT Nasal Suspension (Flonase)Indicatio ns:Chronic nasal congestion Administer 1 [place] into each nostril in the morning and 1 [place] before bedtime. 15.8 mL 4 09/12/20 24 Active Albuterol Sulfate HFA 108 (90 Base) MCG/ACT Inhalation Aerosol SolutionIndication s:COPD, severity to be determined ([facility]) INHALE 2 PUFFS BY MOUTH EVERY 4 HOURS NEEDED FOR SHORTNESS OF BREATH 18 g 3 09/19/19 25 Active hydrALAZINE HCl 25 MG Oral Tablet (Apresoline) Take 1 Tablet by mouth in the morning and 1 Tablet at noon and 1 Tablet before bedtime. 270 Tablet 3 10/01/19 25 Active amLODIPine Besylate 5 MG Oral Tablet (Norvasc) Take 1 Tablet by mouth in the morning and 1 Tablet before bedtime. 180 Tablet 3 10/01/19 25 Active Isosorbide Mononitrate ER 30 MG Oral Tablet Extended Release 24 Hour (Imdur) Take 1.5 Tablets by mouth in the morning. 45 Tablet 2 10/01/19 25 025 Active Potassium Chloride Stephanie ER 20 MEQ Oral Tablet Extended Release Take 1 Tablet by mouth in the morning. 90 Tablet 10/06/19 25 Active Metoprolol Succinate ER 50 MG Oral Tablet Extended Release 24 Hour (toPROL XL) Take 1 Tablet by mouth in the morning and 1 Tablet in the evening. 180 Tablet 10/06/19 25 Active Magnesium Oxide 400 MG Oral Tablet Take 1 Tablet by mouth in the morning. 90 Tablet 10/06/19 25 Active Spironolactone 25 MG Oral Tablet (Aldactone) Take 1 Tablet by mouth in the morning. 90 Tablet 10/06/19 25 Active Ondansetron 8 MG Oral Tablet Disintegrating (Zofran) 1 Tablet every 8 hours as needed. 09/19/19 25 Active Ofloxacin 0.3 % Otic Solution (Floxin) Administer 5 Drops into ears in the morning and 5 Drops before bedtime. Do all this for 3 days. 5 mL 10/08/19 25 025 Hospital, Clinic, or Other Facility Administered Medication Ordered Dose Route Frequency Start Date End Date Status Albuterol Sulfate (Proventil) (2.5 MG/3ML) 0.083% inhalation solution 2.5 mgIndications:COPD, severity to be determined ([facility]) 2.5 mg NEBULIZER ONCE PRN 10/01/2024 10/01/2025 Active documented as of this encounter (statuses as of 10/16/2024) Active Problems Problem Noted Date Diagnosed Date Compression of lumbar vertebra 10/03/2024 Peripheral arterial disease 08/24/2023 S/P femoral-popliteal bypass [...] as of this encounter (statuses as of 10/16/2024) Social History Tobacco Use Types Packs/Day Years Used Date Smoking Tobacco: Every Day Cigarettes 1 58.1 Started: 09/26/1966 Smokeless Tobacco: Never Comments:Occasionally uses [...] encounter Miscellaneous Notes * Telephone Encounter - Torir Malave LPN - 10/10/2024 4:56 PM EST Left detailed message to come in for cxr and this is already ordered. Need radiology appt * Telephone Encounter - Emani Parikh CRNP - 10/09/2024 9:45 AM EST Please notify patient- I did review hospital records. Recommend she have her chest x ray done please to follow up. I ordered at her appt Stephanie, JI, [facility] documented in this encounter Plan of Treatment Upcoming Encounters Date Type Department Care Team (Late st Contact Info) Description 10/23/2024 10:30 AM EST PulmDiagnostic Pulmonary Function Lab, [facility] [address] [address] [place], [address] [place] [address] 12/10/2024 1:00 PM EDT Office Visit Otolaryngology [facility] [address] [place] [address] Amrik Hernandez PA-C [address] [place] [address] 01/01/2025 10:00 AM EDT Office Visit Family Practice [facility] [address] [place] [address] Emani Parikh CRNP [address] [place] [address] 02/04/2025 11:40 AM EDT Office Visit [facility] [address] [place] [address] Emani Parikh CRNP [address] [place] [address] 08/18/2025 10:20 AM EST Office Visit [facility] [address] [place] [address] Akbar Daniel DO [address] [place] [address] Health Maintenance Due Date Last Done Comments DISCUSS TOBACCO CESSATION (REFER TO SMARTSET #1442) 1954 Depression Screening 1966 Albumin/Creatinine Ratio 1972 Alpha-1 Antitrypsin 1972 Diabetic Eye Exam 1972 DTap/Tdap Vaccines (1 - Tdap) 1973 Pneumococcal Vaccine: 50+ Years (1 of 2 - PCV) 1973 Cologuard 12/31/1999 Fecal Occult Blood Test 12/31/1999 Sigmoidoscopy 12/31/1999 Zoster Vaccines (1 of 2) 2004 DXA Scan 09/18/2020 09/18/2018, 10/10/2016 Adult Wellness Visit 2020 Mammogram 04/05/2023 04/05/2022, 11/16, 04/07/2015 Diabetic Foot Exam 06/16/2023 06/16/2022 COVID-19 Vaccine ( - season) 2024 Influenza Vaccine (FLU shot) (#1) 2024 HbA1c 02/08/2025 08/11/2024, 09/18, 08/22/2022, Additional history exists GFR 09/25/2025 09/25/2024, 08/18, 08/11/2024, Additional history exists O2 ASSESSMENT COMPLETED IN PAST YEAR FOR COPD 10/08/2025 10/08/2024 Colonoscopy 11/06/2032 11/06/2022, 03/02/2022 Colorectal Cancer Screening 11/06/2032 Lung Cancer Screening Completed 01/03/2012 VITAMIN D LEVEL ONCE IN A LIFETIME-USE SMARTSET# 83218 Completed 01/10/2024, 10/11/2023, 12/02/2021, Additional history exists [...] this encounter Medical Devices Implanted Type Area Nuclear Pharmacist Device Identifier Shelf Expiration Date Model / Serial / Lot Graft Marker Coronary - [id number] [place]:Q[place] 1 [place] [facility] [place] Aorta VM CARDIO VASCULAR 04/16/2014 [id number] / / [id number] Sut Steel 6 M654g - [id number] Implanted:Qty: 6 on [place]/15/2012 [place] [facility] [place]: Chest DO NOT USE 10/17/2016 M654G / / [id number] Sut Steel 6 M654g - [id number] Implanted:Qty: 2 on 01/15/2012 [place] [facility] [place]: Chest DO NOT USE 10/17/2016 M654G / / [id number] Graft Marker Coronary - [id number] Implanted:Qty: 1 on 01/15/2012 [place] [facility] [place]: Aorta VM CARDIO VASCULAR 08/16/2013 [id number] / / [id number] Lens Intraoc 15.5 - [id number] - [id number] Implanted:Qty: 1 on 10/21/2019 by Tay Acevedo MD at OR [facility] Left: Eye BAUSCH & LOMB 01/15/2024 [id number] / [id number] / Lens Intraoc 16.0 - [id number] - [id number] Implanted:Qty: 1 on 11/04/2019 by Tay Acevedo MD at OR [facility] Right: Eye BAUSCH & LOMB 05/17/2024 [id number] / [id number] / documented as of this encounter Advance Directives * Full Code (Latest Code Status on File) Date Activated Date Inactivated Comments 01/15/2012 3:49 PM 01/20/2012 4:10 PM This order re flects the patients wishes and were consensually agreed upon. Care Teams Director Phone Relationship Specialty Start Date End Date Akbar Daniel DO [address] [place] [address] [address] PCP - General Family Medicine 08/22/22 documented as of this encounter
--- OUTSIDE RECORDS SUMMARY | 2024-10-22 06:07 | External Medical Summary | Summary of Care ---
Author Name Unknown Organization [facility] Address [address] [place] [address] Phone [phone] Care Team Providers Care Director Of Corporate Sales Name Role Phone Akbar Daniel Primary Care Provider Reason for Visit * Reason Onset Date Comments Test Results 10/16/2024 Encounter Details Date Type Department Care Team (Late st Contact Info) Description 10/16/2024 Telephone Family Practice [facility] [address] [facility] [address] E[facility]i [facility] CR[facility] [address] [facility] [address] Test Results Allergies Active Allergy Reactions Criticality Noted Date [...] as of this encounter (statuses as of 10/17/2024) Medications LORAZEPAM 1 MG PO TABSIndications:Pt also [...] times a year. 07/17/20 23 Active Calcitonin ([place]) 200 UNIT/ACT Nasal Solution (Fortical)Indicati ons:Compression fracture of lumbar vertebra, unspecified lumbar vertebral level, initial encounter ([facility]) Administer 1 [place] into one nostril in the morning. alternate [...] HFrEF (heart failure with reduced ejection fraction) ([facility]) Take 2 Tablets by mouth in [...] Suspension (Flonase)Indicatio ns:Chronic nasal congestion Administer 1 [place] into each nostril in the morning and 1 [place] before bedtime. 15.8 mL 4 09/12/20 24 Active Albuterol Sulfate HFA 108 (90 Base) MCG/ACT Inhalation Aerosol SolutionIndication s:COPD, severity to be determined ([facility]) INHALE 2 PUFFS BY MOUTH EVERY 4 [...] 8 hours as needed. 09/19/19 25 Active Hospital, Clinic, or Other Facility Administered Medication Ordered Dose Route Frequency Start Date End Date Status Albuterol Sulfate (Proventil) (2.5 MG/3ML) 0.083% inhalation solution 2.5 mgIndications:COPD, severity to be determined ([facility]) 2.5 mg NEBULIZER ONCE PRN 10/01/2024 10/01/2025 Active documented as of this encounter (statuses as of 10/17/2024) Active Problems Problem Noted Date Diagnosed Date [...] as of this encounter (statuses as of 10/17/2024) Social History Tobacco Use Types Packs/Day Years [...] encounter Miscellaneous Notes * Telephone Encounter - Emani Parikh CRNP - 10/17/2024 1:29 PM EST Spoke to patient. She states she has mild pain in the location of the sternotomy wire fracture but only the last 2 years. This started after she fell and broke shoulder and notes pretty hard fall. NOTED ON 2021 X RAY. If severe pain she is agreeable to letting us know. JI Brown, DEANDRA [facility] * Telephone Encounter - Liz Green LPN - 10/16/2024 4:40 PM EST Patient aware and verbalized understanding Pt states that she has never been told about the wire before * Telephone Encounter - Emani Parikh CRNP - 10/16/2024 9:09 AM EST Please notify patient X ray showing no new pna and the fluid around lungs is resolved. Has anyone every told her that wires from previous surgery(1 has broken the bone slightly)? Every other wire is intact so there is no intervention required. I just wanted to confirm that she has never been told that in the past. It was not noted on x rays in hospital JI Brown, DEANDRA [facility] documented in this encounter Plan of Treatment Upcoming Encounters Date Type Department Care Team (Late st Contact Info) Description 10/23/2024 10:30 AM EST PulmDiagnostic Pulmonary Function Lab, [facility] [address] [facility] [place] [address] [place], [address] [facility] [place] [address] 12/10/2024 1:00 PM EDT Office Visit Otolaryngology [facility] [address] [place] [address] Amrik Hernandez PA-C [address] [place] [address] 01/01/2025 10:00 AM EDT Office Visit [facility] [address] [place] [address] Emani Parikh CRNP [address] [place] [address] 02/04/2025 11:40 AM EDT Office Visit [facility] [address] [place] [address] Emani Parikh CRNP [address] [place] [address] 08/18/2025 10:20 AM EST Office Visit [facility] [address] [place] [address] Akbar Daniel, [address] [place] [address] Health Maintenance Due Date Last Done Comments DISCUSS TOBACCO CESSATION (REFER TO SMARTSET #4482) 1954 Depression Screening 1966 Albumin/Creatinine Ratio 1972 [...] D LEVEL ONCE IN A LIFETIME-USE SMARTSET# 15369 Completed 01/10/2024, 10/11/2023, 12/02/2021, Additional history exists [...] this encounter Medical Devices Implanted Type Area Clerical And Office Support Workers Device Identifier Shelf Expiration Date Model / Serial / Lot Graft Marker Coronary - [id number] Implanted:Qty: 1 on 01/15/2012 at [place] [facility] [place]A: Aorta VM CARDIO VASCULAR 04/16/2014 [id number] / / [id number] Sut Steel 6 M654g - [id number] Implanted:Qty: 6 on 01/15/2012 at [place] [facility] [place] N/A: Chest DO NOT USE 10/17/2016 M654G / / [id number] Sut Steel 6 M654g - [id number] Implanted:Qty: 2 on 01/15/2012 at [place] [facility] [place] N/A: Chest DO NOT USE 10/17/2016 M654G / / [id number] Graft Marker Coronary - [id number] Implanted:Qty: 1 on 01/15/2012 at [place] [facility] [place] N/A: Aorta VM CARDIO VASCULAR 08/16/2013 [id number] / / [id number] Lens Intraoc 15.5 - [id number] - [id number] Implanted:Qty: 1 on 10/21/2019 by Tay Acveedo MD at OR [facility] Left: Eye BAUSCH & LOMB 01/15/2024 [id number] / [id number] / Lens Intraoc 16.0 - [id number] - [id number] Implanted:Qty: 1 on 11/04/2019 by Tay Acevedo MD at OR [facility] Right: Eye BAUSCH & LOMB 05/17/2024 [id number] / [id number] / documented as of this encounter Advance Directives * Full Code (Latest Code Status on File) Date Activated Date Inactivated Comments 01/15/2012 3:49 PM 01/20/2012 4:10 PM This order re flects the patients wishes and were consensually agreed upon. Care Teams Director Of Corporate Sales Relationship Specialty Start Date End Date Akbar Daniel DO [address] [address] PCP - General Family Medicine 08/22/22 documented as of this encounter
--- OUTSIDE RECORDS SUMMARY | 2024-10-22 06:07 | External Medical Summary | Summary of Care ---
Author Name Unknown Organization [facility] Address [address] [place] [address] Phone [phone] Care Team Providers Care Stations Superintendent Name Role Phone Akbar Daniel Primary Care Provider Reason for Visit * Reason Onset Date Comments Test Results 10/16/2024 Encounter Details Date Type Department Care Team (Late st Contact Info) Description 10/16/2024 Telephone Family Practice [facility] [address] [facility] [address] Emani Parikh [facility] [address] [facility] [address] Test Results Allergies Active Allergy [...] times a year. 07/17/20 23 Active Calcitonin ([place]) 200 UNIT/ACT Nasal Solution (Fortical)Indicati ons:Compression fracture of lumbar vertebra, unspecified lumbar vertebral level, initial encounter ([facility]) Administer 1 [place] into one nostril in the morning. alternate [...] failure with reduced ejection fraction) ([facility]) Take 2 Tablets by mouth in the [...] Suspension (Flonase)Indicatio ns:Chronic nasal congestion Administer 1 [place] into each nostril in the morning and 1 [place] before bedtime. 15.8 mL 4 09/12/20 24 [...] to letting us know. JI Brown, DEANDRA [facility] * Telephone Encounter - Liz Green LPN [...] x rays in hospital JI Brown, DEANDRA [facility] documented in this encounter Plan of Treatment Upcoming Encounters Date Type Department Care Team (Late st Contact Info) Description 10/23/2024 10:30 AM EST PulmDiagnostic Pulmonary Function Lab, [facility] [address] [facility] [place] [address] [place], [address] [facility] [place] [address] 12/10/2024 1:00 PM EDT Office Visit Otolaryngology [facility] [address] [place] [address] Amrik Hernandez PA-C [address] [place] [address] 01/01/2025 10:00 AM EDT Office Visit [facility] [address] [place] [address] Emani Parikh CRNP [address] [place] [address] 02/04/2025 11:40 AM EDT Office Visit [facility] [address] [place] [address] Emani Parikh CRNP [address] [place] [address] 08/18/2025 10:20 AM EST Office Visit [facility] [address] [place] [address] Akbar Daniel, [address] [place] [address] Health Maintenance Due Date Last Done Comments DISCUSS TOBACCO CESSATION (REFER TO SMARTSET #3740) 1954 Depression Screening 1966 Albumin/Creatinine Ratio 1972 [...] D LEVEL ONCE IN A LIFETIME-USE SMARTSET# 12627 Completed 01/10/2024, 10/11/2023, 12/02/2021, Additional history exists [...] this encounter Medical Devices Implanted Type Area Sanitation Tank Washer Device Identifier Shelf Expiration Date Model / Serial / Lot Graft Marker Coronary - [id number] [place]planted:Q[place] 1 [place] [facility] [place] Aorta VM CARDIO VASCULAR 04/16/2014 [id number] / / [id number] Sut Steel 6 M654g - [id number] Implanted:Qty: 6 on 01/15/2012 [place] [facility] [place]: Chest DO NOT USE 10/17/2016 M654G / / [id number] Sut Steel 6 M654g - [id number] Implanted:Qty: 2 on 01/15/2012 [place] [facility] [place]: Chest DO NOT USE 10/17/2016 M654G / / [id number] Graft Marker Coronary - [id number] Implanted:Qty: 1 on 01/15/2012 [place] [facility] [place]: Aorta VM CARDIO VASCULAR 08/16/2013 [id number] / / [id number] Lens Intraoc 15.5 - [id number] - [id number] Implanted:Qty: 1 on 10/21/2019 by Tay Acevedo MD at OR [facility] Left: Eye BAUSCH & LOMB 01/15/2024 [id number] / [id number] / Lens Intraoc 16.0 - [id number] - [id number] Implanted:Qty: 1 on 11/04/2019 by Tay Acevedo MD at OR [facility] Right: Eye BAUSCH & LOMB 05/17/2024 [id number] / [id number] / documented as of this encounter Advance Directives * Full Code (Latest Code Status on File) Date Activated Date Inactivated Comments 01/15/2012 3:49 PM 01/20/2012 4:10 PM This order re flects the patients wishes and were consensually agreed upon. Care Teams Stations Superintendent Relationship Specialty Start Date End Date Akbar Daniel DO [address] [address] PCP - General Family Medicine 08/22/22 documented as of this encounter
--- OUTSIDE RECORDS SUMMARY | 2024-10-22 06:08 | External Medical Summary | Summary of Care ---
Author Name Unknown Organization [facility] Address [address] [place] [address] Phone [phone] Care Team Providers Care Mastic Man Name Role Phone Akbar Daniel DO Primary Care Provider Reason for Visit * Reason Comments Hospital Follow-Up HAYDEN (Acute Kidney Injury) Hypertension DM Pt was seen at [facility] admit date 08/25/24 Discharge 120 for HAYDEN Last labs 09/09/24 Pt currently on Floxin Otic Encounter Details Date Type Department Care Team (Late st Contact Info) Description 10/08/2024 1:00 PM EST Office Visit Nephrology, Otto Kate [address] [facility] [address] [place] [address] Salvatore Coreas MD [address] [facility] [place] [id number] HAYDEN (acute kidney injury) ([facility])*; HTN, goal below 140/90; Electrolyte and fluid disorder Allergies Active Allergy Reactions Criticality Noted Date [...] as of this encounter (statuses as of 10/08/2024) Medications LORAZEPAM 1 MG PO TABSIndications:Pt also [...] times a year. 07/17/20 23 Active Calcitonin ([place]) 200 UNIT/ACT Nasal Solution (Fortical)Indicati ons:Compression fracture of lumbar vertebra, unspecified lumbar vertebral level, initial encounter ([facility]) Administer 1 [place] into one nostril in the morning. alternate [...] HFrEF (heart failure with reduced ejection fraction) ([facility]) Take 2 Tablets by mouth in the morning. 09/08/20 24 Active Diphenoxylate-Atro pine 2.5-0.025 MG/5ML Oral Liquid (Lomotil)Indicatio ns:Chronic diarrhea Take 5 mL by mouth every evening. 60 mL 5 12/24/20 24 Active Additional Information Patient not taking.Reported on 10/08/2024 Saccharomyces boulardii 250 MG Oral Capsule (Florastor)Indicat ions:Recurrent Clostridioides difficile diarrhea Take 1 Capsule by mouth in the morning and 1 Capsule before bedtime. 180 Capsule 3 09/09/20 Active Fluticasone Propionate 50 MCG/ACT Nasal Suspension (Flonase)Indicatio ns:Chronic nasal congestion Administer 1 [place] into each nostril in the morning and 1 [place] before bedtime. 15.8 mL 4 09/12/20 24 [...] the morning. 90 Tablet 10/06/19 25 Active Ofloxacin 0.3 % Otic Solution (Floxin) Administer 5 Drops into ears in the morning and 5 Drops before bedtime. Do all this for 3 days. 5 mL 10/08/19 25 025 Active Ondansetron 8 MG Oral Tablet Disintegrating [...] as of this encounter (statuses as of 10/08/2024) Active Problems Problem Noted Date Diagnosed Date [...] as of this encounter (statuses as of 10/08/2024) Social History Tobacco Use Types Packs/Day Years Used Date Smoking Tobacco: Every Day Cigarettes 1 58 Started: 09/26/1966 Smokeless Tobacco: Never Comments:Occasionally uses [...] Sign Reading Time Taken Comments Blood Pressure 128/70 10/08/2024 1:04 PM EST Pulse 68 10/08/2024 1:04 PM EST Temperature 36.5 C (97.7 F) 10/08/2024 1:04 PM ES T Respiratory Rate 20 10/08/2024 1:04 PM EST Oxygen Saturation 93% 10/08/2024 1:04 PM EST Inhaled Oxygen Concentration - - Weight 60.8 kg (134 lb 1.6 oz) 10/08/2024 1:04 P M EST Height - - Body Mass Index 23.75 10/08/2024 9:13 AM EST documented in this encounter Progress Notes * Salvatore Coreas MD - 10/08/2024 1:13 PM EST Subjective: Sierra Wang is a 68 year old female. Chief Complaint Patient presents with Hospital Follow-Up HAYDEN (Acute Kidney Injury) Hypertension DM Pt was seen at [facility] admit date 08/25/24 Discharge 120/24 for HAYDEN Last labs 09/09/24 Pt currently on Floxin Otic HPI: 68-year-old female who was seen in the hospital where she was admitted with polypharmacy causing encephalopathy as well as severe hypotension acute kidney injury with a peak creatinine 3.7. However improved and by discharge it was down to 1.2 on September 05. Since discharge improved even further 1.0 and on the most recent blood work done at [facility] creatinine is down to 0.8 on September 25. Magnesium is still borderline and was 1.6. She was instructed to take extramagnesium and to have for the blood work. Her blood pressure while in the hospital initially was low but then became hypertensive and blood pressure medication adjusted. She is now on losartan spironolactone amlodipine hydralazine metoprololand Imdur. Blood pressure is good and no side-effect. She also had C diff and was on oral vancomycin. She is not complaining of significant diarrhea at this point. Denies nausea vomiting chest pain shortness of breath or really any acute symptoms. However worth noting that patient does have very poor functional status and functionally looks significantly older than her age. Patient Active Problem List Diagnosis Chronic coronary artery disease S/P coronary artery bypass with four autogenous grafts Anemia Tobacco use disorder Anxiety disorder DM type 2 causing neurological disease ([facility]) HTN, goal to be determined Backache COPD, severity to be determined ([facility]) B12 deficiency Chronic HFrEF (heart failure with reduced ejection fraction) ([facility]) Dyslipidemia, goal LDL below 100 Iron deficiency anemia, unspecified Mitral valve disease Osteoporosis Paroxysmal atrial fibrillation ([facility]) Migraine without aura and without status migrainosus, not intractable Peripheral arterial disease ([facility]) S/P femoral-popliteal bypass surgery Compression of lumbar vertebra ([facility]) Current Outpatient Medications Medication Sig Dispense Refill LORAZEPAM 1 MG PO TABS Take 1 Tablet by mouth in the morning and 1 Tablet at noon and 1 Tablet before bedtime. NITROGLYCERIN 0.4 MG SL SUBL as needed 25 Tab 5 Eliquis 5 MG Oral Tablet Take 1 Tablet by mouth in the morning and 1 Tablet before bedtime. Pravastatin Sodium 40 MG Oral Tablet (Pravachol) TAKE 1 TABLET BY MOUTH EVERYDAY AT BEDTIME 90 Tablet 3 Iron Dextran 50 MG/ML Injection Solution (Infed) Administer 50 mg intravenously. Receives infusionsfor 3 weeks, three times a year. Calcitonin ([place]) 200 UNIT/ACT Nasal Solution (Fortical) Administer 1 [place] into one nostril in the morning. alternate nostrils.. 3 mL 11 Omeprazole 40 MG Oral Capsule Delayed Release (PriLOSEC) TAKE 1 CAPSULE BY MOUTH IN THE MORNING ANDBEFORE BEDTIME 180 Capsule 1 Gabapentin 400 MG Oral Capsule (Neurontin) Take 1 Capsule by mouth in the morning and 1 Capsule at noon and 1 Capsule before bedtime. Losartan Potassium 50 MG Oral Tablet (Cozaar) Take 2 Tablets by mouth in the morning. Saccharomyces boulardii 250 MG Oral Capsule (Florastor) Take 1 Capsule by mouth in the morning and 1 Capsule before bedtime. 180 Capsule 3 Fluticasone Propionate 50 MCG/ACT Nasal Suspension (Flonase) Administer 1 [place] into each nostril in the morning and 1 [place] before bedtime. 15.8 mL 4 Albuterol Sulfate HFA 108 (90 Base) MCG/ACT Inhalation Aerosol Solution INHALE 2 PUFFS BY MOUTH EVERY 4 HOURS NEEDED FOR SHORTNESS OF BREATH 18 g 3 hydrALAZINE HCl 25 MG Oral Tablet (Apresoline) Take 1 Tablet by mouth in the morning and 1 Tablet at noon and 1 Tablet before bedtime. 270 Tablet 3 amLODIPine Besylate 5 MG Oral Tablet (Norvasc) Take 1 Tablet by mouth in the morning and 1 Tablet before bedtime. 180 Tablet 3 Potassium Chloride Stephanie ER 20 MEQ Oral Tablet Extended Release Take 1 Tablet by mouth in the morning. 90 Tablet 0 Metoprolol Succinate ER 50 MG Oral Tablet Extended Release 24 Hour (toPROL XL) Take 1 Tablet by mouth in the morning and 1 Tablet in the evening. 180 Tablet 0 Magnesium Oxide 400 MG Oral Tablet Take 1 Tablet by mouth in the morning. 90 Tablet 0 Spironolactone 25 MG Oral Tablet (Aldactone) Take 1 Tablet by mouth in the morning. 90 Tablet 0 Ofloxacin 0.3 % Otic Solution (Floxin) Administer 5 Drops into ears in the morning and 5 Drops before bedtime. Do all this for 3 days. 5 mL 0 Ondansetron 8 MG Oral Tablet Disintegrating (Zofran) 1 Tablet every 8 hours as needed. Diphenoxylate-Atropine 2.5-0.025 MG/5ML Oral Liquid (Lomotil) Take 5 mL by mouth every evening. (Patient not taking: Reported on 10/08/2024) 60 mL 5 Isosorbide Mononitrate ER 30 MG Oral Tablet Extended Release 24 Hour (Imdur) Take 1.5 Tablets by mouth in the morning. 45 Tablet 2 Current Facility-Administered Medications Medication Dose Route Frequency Provider Last Rate Last Admin Albuterol Sulfate (Proventil) (2.5 MG/3ML) 0.083% inhalation solution 2.5 mg 2.5 mg Nebulizer Once PRN Past Medical History: Diagnosis Date Anxiety CAD (coronary artery disease) Chronic anemia Gastric ulcer Smoker Type II or unspecified type diabetes mellitus with neurological manifestations, not stated as uncontrolled(250.60) ([facility]) Past Surgical History: Procedure Laterality Date CABG, ARTERIAL, SINGLE 01/15/2012 CORONARY ARTERY BYPASS GRAFT USING ARTERY 1 GRAFT performed by JOHN ERWIN OR [facility] MISCELLANEOUS ORDER ([facility] ONLY) small bowel resection REMOVAL OF APPENDIX 23 years ago REMOVE CATARACT, INSERT LENS PROSTH Left 10/21/2019 left EXTRACAPSULAR CATARACT REMOVAL WITH INTRAOCULAR LENS performed by Tay Acevedo MD at OR [facility] REMOVE CATARACT, INSERT LENS PROSTH Right 11/04/2019 right EXTRACAPSULAR CATARACT REMOVAL WITH INTRAOCULAR LENS performed by Tay Aceevdo MD at OR [facility] REMOVE GALLBLADDER 25 years ago REMOVE PANCREAS, PARTIAL ([place]) REMOVE STOMACH, PARTIAL REMOVE TONSILS & ADENOIDS, AGE 12+ REPAIR CORONARY ARTERY, GRAFT CABG 8 yrs ago Review of patient's allergies indicates: Allergen Reactions Benzyl Alcohol Anaphylaxis Iodinated Contrast Media Lisinopril Chills/rigors Prochlorperazine Anaphylaxis and Edema airway Promethazine Anaphylaxis Angioedema Saccharin Anaphylaxis Amoxicillin Other (Please comment) Pt c/o headaches with amox Erythromycin Other (Please comment) Pt has headaches and earaches with this medication. Furosemide Itching Iodine Itching Allergy as per patient with itching. Simvastatin Itching No family history on file. No family status information on file. Social History Socioeconomic History Marital status: Spouse name: Not on file Number of children: Not on file Years of education: Not on file Highest education level: Not on file Occupational History Not on file Tobacco Use Smoking status: Every Day Current packs/day: 1.00 Average packs/day: 1 pack/day for 58.0 years (58.0 ttl pk-yrs) Types: Cigarettes Start date: 09/26/1966 Smokeless tobacco: Never Tobacco comments: Occasionally uses e-cigarettes Substance and Sexual Activity Alcohol use: No Drug use: No Sexual activity: Not on file Other Topics Concern Not on file Social History Narrative Not on file Social Needs Financial Resource Strain: Not on file Food Insecurity: Not on file Transportation Needs: Not on file Social Connections: Not on file Housing Stability: Not on file Review of Systems: Twelve systems reviewed and negative OBJECTIVE: Physical Exam: BP 128/70 (BP Site: Right Arm, BP Position: Sitting, BP Cuff Size: Regular) | Pulse 68 | Temp 36.5 C (97.7 F) (Tympanic) | Resp 20 | Wt 60.8 kg (134 lb 1.6 oz) | SpO2 93% | BMI 23.75 kg/m | BSA1.64 m General: alert, ill looking, and mild distress. Looks older than her age Head: Normocephalic, No masses, lesions, tenderness or abnormalities Neck: supple, no adenopathy, no bruits, thyroid normal size, non-tender, without nodularity Heart: regular rate & rhythm, no murmur, and no gallops Lungs: chest symmetric with normal AP diameter, no chest deformities noted, no chest wall tenderness, lungs clear to auscultation Abdomen: abdomen soft, non-tender, normal bowel sounds, and no masses or organomegaly Extremities: less than 2 second capillary refill, no joint deformities, effusion, or inflammation Recent Labs Units 09/09/24 1130 08/11/24 1206 10/11/23 1127 SODIUM - [facility] mmol/L 141 142 141 POTASSIUM - [facility] mmol/L 3.5 3.0* 4.4 CHLORIDE - [facility] mmol/L 106 109* 105 CO2 - [facility] mmol/L 22 25 23 ESTIMATED GLOMERULAR FILTRATION RATE - [facility] mL/min 58* >90 >90 BUN - [facility] mg/dL 12 15 16 CREATININE - [facility] mg/dL 1.0 0.7 0.7 Recent Labs Units 08/11/24 1206 10/11/23 1127 HGB g/dL 11.8* 14.2 Recent Labs Units 09/09/24 1130 08/11/24 1206 01/10/24 0953 10/11/23 1127 CALCIUM - [facility] mg/dL 9.2 8.6 -- 9.4 25-HYDROXY VITAMIN D - [facility] ng/mL -- -- 70 24 Recent Labs Units 08/11/24 1206 10/11/23 1127 HEMOGLOBIN A1C - [facility] % 6.2* 5.9* No results for input(s): "ALBCREHIDE", "ALBCREURN", "MICROALBUMIN", "PROTCREATRAT" in the last 36114 hours. Assessment: HAYDEN (acute kidney injury) (HCC) (Primary) History of HAYDEN secondary to prolonged severe hypotension related with polypharmacy causing overdoselike situation. Renal function improved with a peak creatinine of 3.8 and by discharge was down to 1.2 and improvedeven further and on the most recent blood work of September 25, 2024 creatinine is only 0.8 which is her baseline. No further workup needed for acute kidney injury. Patient has significant pulmonary as well as cardiac issues and severe peripheral vascular disease which means she is always at very high risk of acute kidney injury with any acute illnesses or hemodynamic compromise. HTN, goal below 140/90 She had severe hypotension at the time of presentation but in general she has hypertension at baseline requiring multiple agents. Continue all current medication at the current dose as she is tolerating it well without side-effect and has good blood pressure control. She is now on losartan spironolactone amlodipine hydralazine metoprolol and Imdur. Electrolyte and fluid disorder She has issues with low potassium and low magnesium. This is despite being on spironolactone. The last blood work from September 25, 2024 showed normal potassium. She still has slightly low serum bicarb probably related with diarrhea with a recent C diff. magnesium was still borderline low and with a history of prolonged QT it is important we keep it as close to normal as possible. Currently on magnesium supplement and which will be continued Will see her as needed I spent a total of 40-54 minutes (exact time 43 mins) on the date of service in preparation, delivery, and documentation of the care provided to Sierra Wang excluding any time spent in the performance of separately billed services or time spent by another provider/QHP. Salvatore Coreas MD documented in this encounter Nursing Notes * Belkis Willis LPN - 10/08/2024 1:03 PM EST Patient identified by verbal name and date of . Chief Complaint Patient presents with Hospital Follow-Up HAYDEN (Acute Kidney Injury) Hypertension DM Pt was seen at [facility] admit date 08/25/24 Discharge 120/24 for HAYDEN Last labs 09/09/24 Pt currently on Floxin Otic documented in this encounter Plan of Treatment Upcoming Encounters Date Type Department Care Team (Late st Contact Info) Description 12/10/2024 1:00 PM EDT Office Visit Otolaryngology [facility] [address] [place] [address] Amrik Hernandez PA-C [address] [place] [address] 01/01/2025 10:00 AM EDT Office Visit [facility] [address] [place] [address] Emani Parikh CRNP [address] [place] [address] 02/04/2025 11:40 AM EDT Office Visit [facility] [address] [place] [address] Emani Parikh CRNP [address] [place] [address] 08/18/2025 10:20 AM EST Office Visit [facility] [address] [place] [address] Akbar Daniel DO [address] [place] [address] Health Maintenance Due Date Last Done Comments DISCUSS TOBACCO CESSATION (REFER TO SMARTSET #2617) 1955 Depression Screening 1966 Albumin/Creatinine Ratio 1972 [...] Exam 06/16/2023 06/16/2022 COVID-19 Vaccine (1 - 2024-25 season) 2024 Influenza Vaccine (FLU shot) (#1) 2024 HbA1c 02/08/2025 08/11/2024, 09/18, 08/22/2022, Additional history exists GFR 09/09/2025 09/09/2024, 07/19, 10/11/2023, Additional history exists O2 ASSESSMENT COMPLETED IN PAST YEAR FOR COPD 10/01/2025 10/01/2024 Colonoscopy 11/06/2032 11/06/2022, 03/02/2022 Colorectal Cancer Screening 11/06/2032 Lung Cancer Screening Completed 01/03/2012 VITAMIN D LEVEL ONCE IN A LIFETIME-USE SMARTSET# [id number] Completed 01/10/2024, 10/11/2023, 12/02/2021, Additional history exists [...] this encounter Medical Devices Implanted Type Area Hearing Aid Fitter Device Identifier Shelf Expiration Date Model / Serial / Lot Graft Marker Coronary - [id number] Implanted:Qty: 1 on 01/15/2012 at OR [facility] N/A: Aorta VM CARDIO VASCULAR 04/16/2014 [id number] / / [id number] Sut Steel 6 M654g - [id number] Implanted:Qty: 6 on 01/15/2012 at OR [facility] N/A: Chest DO NOT USE 10/17/2016 [id number] / / [id number] Sut Steel 6 M654g - [id number] Implanted:Qty: 2 on 01/15/2012 at OR [facility] N/A: Chest DO NOT USE 10/17/2016 M654G / / [id number] Graft Marker Coronary - [id number] Implanted:Qty: 1 on 01/15/2012 at OR [facility] N/A: Aorta VM CARDIO VASCULAR 08/16/2013 [id number] / / [id number] Lens Intraoc 15.5 - [id number] - [id number] Implanted:Qty: 1 on 10/21/2019 by Tay Acevedo MD at OR [facility] Left: Eye BAUSCH & LOMB 01/15/2024 [id number] / [id number] / Lens Intraoc 16.0 - [id number] - [id number] Implanted:Qty: 1 on 11/04/2019 by aTy Acevedo MD at OR [facility] Right: Eye BAUSCH & LOMB 05/17/2024 [id number] / [id number] / documented as of this encounter Visit Diagnoses Diagnosis HAYDEN (acute kidney injury) (HCC)- Primary Acute kidney failure, unspecified HTN, goal below 140/90 Unspecified essential hypertension Electrolyte and fluid disorder Electrolyte and fluid disorders not elsewhere classified documented in this encounter Advance Directives * Full Code (Latest Code Status on File) Date Activated Date Inactivated Comments 01/15/2012 3:49 PM 01/20/2012 4:10 PM This order re flects the patients wishes and were consensually agreed upon. Care Teams Mastic Man Relationship Specialty Start Date End Date Akbar Daniel DO [address] [place] [address] PCP - General Family Medicine 08/22/22 documented as of this encounter
--- OUTSIDE RECORDS SUMMARY | 2024-10-22 06:08 | External Medical Summary | Summary of Care ---
Author Name Unknown Organization [facility] Address [address] [place] [place] [facility] [place] [address] Phone [phone] Care Team Providers Care Help Desk Technician Name Role Phone Akbar Danielrazia DO Primary Care Provider Encounter Details Date Type Department Care Team (Late st Contact Info) Description 10/08/2024 Telephone Otolaryngology [facility] [address] [place] [address] Rolando Ervin DO [address] [place] [address] Allergies Active [...] times a year. 07/17/20 23 Active Calcitonin ([place]) 200 UNIT/ACT Nasal Solution (Fortical)Indicati ons:Compression fracture of lumbar vertebra, unspecified lumbar vertebral level, initial encounter ([facility]) Administer 1 [place] into one nostril in the morning. alternate [...] failure with reduced ejection fraction) ([facility]) Take 2 Tablets by mouth in the morning. 09/08/20 24 Active Diphenoxylate-Atro pine 2.5-0.025 MG/5ML Oral Liquid (Lomotil)Indicatio ns:Chronic diarrhea Take 5 mL by mouth every evening. 60 mL 5 09/09/20 24 Active Additional Information Patient not taking.Reported on 10/01/2024 Saccharomyces boulardii 250 MG Oral Capsule (Florastor)Indicat ions:Recurrent Clostridioides difficile diarrhea Take 1 Capsule by mouth in the morning and 1 Capsule before bedtime. 180 Capsule 3 09/09/20 24 Active Fluticasone Propionate 50 MCG/ACT Nasal Suspension (Flonase)Indicatio ns:Chronic nasal congestion Administer 1 [place] into each nostril in the morning and 1 [place] before bedtime. 15.8 mL 4 09/12/20 24 [...] Tablet before bedtime. 180 Tablet 3 10/01/19 Active Isosorbide Mononitrate ER 30 MG Oral Tablet Extended Release 24 Hour (Imdur) Take 1.5 Tablets by mouth in the morning. 45 Tablet 2 10/01/19 25 Active Potassium Chloride Stephanie ER 20 MEQ [...] days. 5 mL 10/08/19 25 025 Active Hospital, Clinic, or Other Facility Administered [...] encounter Miscellaneous Notes * Telephone Encounter - Binh Vaughn CMA - 10/08/2024 12:04 PM EST Patient was on the phone with ENT scheduling and wanted to know if muffled hearing/ hearing loss was normal after tube placement. Patient had bilateral tubes placed in office by Dr. Ervin on 10/08/2024. I advised to continue using ofloxacin drops and that the muffled hearing is normal immediatly following tube placement. documented in this encounter Plan of Treatment Upcoming Encounters Date Type Department Care Team (Late st Contact Info) Description 10/08/2024 1:00 PM EST Office Visit Nephrology, Otto Kate [address] [place] [address] Salvatore Coreas MD [address] [place] [address] 12/10/2024 1:00 PM EDT Office Visit Otolaryngology [facility] [address] [address] [address] Amrik Hernandez PA-C [address] [place] [address] 01/01/2025 10:00 AM EDT Office Visit [facility] [address] [place] [address] [address] Emani Parikh CRNP [address] [place] [address] 02/04/2025 11:40 AM EDT Office Visit [facility] [address] [place] [address] [address] Emani Parikh CRNP [address] [place] [address] 08/18/2025 10:20 AM EST Office Visit Family Practice [facility] [address] [place] [address] Akbar Daniel, [address] [place] [address] Health Maintenance Due Date Last Done Comments DISCUSS TOBACCO CESSATION (REFER TO SMARTSET #1277) 1955 Depression Screening 1966 Albumin/Creatinine Ratio 1972 [...] D LEVEL ONCE IN A LIFETIME-USE SMARTSET# [id number] Completed 01/10/2024, 10/11/2023, 12/02/2021, Additional history exists [...] this encounter Medical Devices Implanted Type Area Senior Data Scientist Device Identifier Shelf Expiration Date Model / Serial / Lot Graft Marker Coronary - [id number] Implanted:Qty: 1 on 01/15/2012 at OR [facility] N/A: Aorta VM CARDIO VASCULAR 04/16/2014 [id number] / / [id number] Sut Steel 6 M654g - [id number] Implanted:Qty: 6 on 01/15/2012 at OR [facility] N/A: Chest DO NOT USE 10/17/2016 M654G / / [id number] Sut Steel 6 M654g - [id number] Implanted:Qty: 2 on 01/15/2012 at OR [facility] N/A: Chest DO NOT USE 10/17/2016 M654G / / [id number] Graft Marker Coronary - [id number] Implanted:Qty: 1 on 01/15/2012 at OR [facility] N/A: Aorta VM CARDIO VASCULAR 08/16/2013 [id number] / / [id number] Lens Intraoc 15.5 - [id number] - [id number] Implanted:Qty: 1 on 10/21/2019 by Tay Acevedo MD at OR [facility] Left: Eye BAUSCH & LOMB 01/15/2024 [id number] / [id number] / Lens Intraoc 16.0 - [id number] - [id number] Implanted:Qty: 1 on 11/04/2019 by Tay Acevedo MD at OR [facility] Right: Eye BAUSCH & LOMB 05/17/2024 [id number] / [id number] / documented as of this encounter Advance Directives * Full Code (Latest Code Status on File) Date Activated Date Inactivated Comments 01/15/2012 3:49 PM 01/20/2012 4:10 PM This order re flects the patients wishes and were consensually agreed upon. Care Teams Help Desk Technician Relationship Specialty Start Date End Date Akbar Daniel DO [address] [place] [address] [place] [address] PCP - General Family Medicine 08/22/22 documented as of this encounter
--- OUTSIDE RECORDS SUMMARY | 2024-10-22 06:08 | External Medical Summary | Summary of Care ---
Author Name Unknown Organization [facility] Address [address] [place] [address] Phone [phone] Care Team Providers Care Brush Machine Setter Name Role Phone Akbar Daniel Primary Care Provider Reason for Visit * Reason Onset Date Comments Other 10/01/2024 Encounter Details Date Type Department Care Team (Late st Contact Info) Description 10/01/[address] [facility] [address] [facility] [place] [address] Emani Parikh CRNP [address] [facility] [place] [address] Other Allergies Active Allergy Reactions Criticality Noted Date [...] times a year. 07/17/20 23 Active Calcitonin ([place]) 200 UNIT/ACT Nasal Solution (Fortical)Indicati ons:Compression fracture of lumbar vertebra, unspecified lumbar vertebral level, initial encounter ([facility]) Administer 1 [place] into one nostril in the morning. alternate [...] HFrEF (heart failure with reduced ejection fraction) ([facility]) Take 2 Tablets by mouth in the [...] Suspension (Flonase)Indicatio ns:Chronic nasal congestion Administer 1 [place] into each nostril in the morning and 1 [place] before bedtime. 15.8 mL 4 09/12/20 24 [...] 45 Tablet 2 10/01/19 25 025 Active Hospital, Clinic, or Other [...] encounter Miscellaneous Notes * Telephone Encounter - Beth Montes MED ASSIST - 10/07/2024 12:35 PM EST Called and spoke to Susana -- will fax any recent records of these over. * Telephone Encounter - Beth Montes MED ASSIST - 10/01/2024 4:24 PM EST Same voicemail came through -- not directed to actual person. Will need to retry tomorrow. * Telephone Encounter - Beth Montes MED ASSIST - 10/01/2024 12:24 PM EST Tried to call [facility] Med. Records --- unable to get a-hold of anyone, the voicemail stated they are experiencing an issue with their system and did not direct me to anyone. Need: - Any recent CT Lung Scans that they have. - Had labs at cancer center, need those recent labs as well. Will try to call later. documented in this encounter Plan of Treatment Upcoming Encounters Date Type Department Care Team (Late st Contact Info) Description 10/08/2024 1:00 PM EST Office Visit Nephrology, [facility] [address] [place] [address] Salvatore Coreas MD [address] [facility] [address] [place] [address] 12/10/2024 1:00 PM EDT Office Visit Otolaryngology [facility] [address] [place] [address] Amrik Hernandez PA-C [address] [place] [address] 01/01/2025 10:00 AM EDT Office Visit [facility] [address] [place] [address] Emani Parikh CRNP [address] [place] [address] 02/04/2025 11:40 AM EDT Office Visit [facility] [address] [place] [address] Emani Parikh CRNP [address] [place] [address] 08/18/2025 10:20 AM EST Office Visit Family Practice [facility] [address] [place] [address] Akbar Daniel, [address] [place] [address] Health Maintenance Due Date Last Done Comments DISCUSS TOBACCO CESSATION (REFER TO SMARTSET #2737) 1955 Depression Screening 1966 Albumin/Creatinine Ratio 1972 [...] D LEVEL ONCE IN A LIFETIME-USE SMARTSET# 90541 Completed 01/10/2024, 10/11/2023, 12/02/2021, Additional history exists [...] this encounter Medical Devices Implanted Type Area User Support Analyst Device Identifier Shelf Expiration Date Model / Serial / Lot Graft Marker Coronary - [id number] [place] [facility] [place] Aorta VM CARDIO VASCULAR 04/16/2014 [id number] / / [id number] Sut Steel 6 M654g - [id number] Implanted:Qty: 6 on 01/15/2012 [place] [facility] [place]: Chest DO NOT USE 10/17/2016 [id number] / / [id number] Sut Steel 6 M654g - [id number] Implanted:Qty: 2 on 01/15/2012 [place] [facility] [place]: Chest DO NOT USE 10/17/2016 M654G / / [id number] Graft Marker Coronary - [id number] Implanted:Qty: 1 on 01/15/2012 [place] [facility] [place]: Aorta VM CARDIO VASCULAR 08/16/2013 [id number] / / [id number] Lens Intraoc 15.5 - [id number] - [id number] Implanted:Qty: 1 on 10/21/2019 by Tay Acevedo MD at OR [facility] Left: Eye BAUSCH & LOMB 01/15/2024 [id number] / [id number] / Lens Intraoc 16.0 - [id number] - [id number] Implanted:Qty: 1 on 11/04/2019 by Tay Acevedo MD at OR [facility] Right: Eye BAUSCH & LOMB 05/17/2024 [id number] / [id number] / documented as of this encounter Advance Directives * Full Code (Latest Code Status on File) Date Activated Date Inactivated Comments 01/15/2012 3:49 PM 01/20/2012 4:10 PM This order re flects the patients wishes and were consensually agreed upon. Care Teams Brush Machine Setter Relationship Specialty Start Date End Date Akbar Daniel DO [address] [place] [address] PCP - General Family Medicine 08/22/22 documented as of this encounter
--- OUTSIDE RECORDS SUMMARY | 2024-10-22 06:08 | External Medical Summary | Summary of Care ---
Author Name Unknown Organization [facility] Address [address] [place] [address] Phone [phone] Care Team Providers Care Sheet Roller Operator Name Role Phone Fredy Akbar Sherrazia DO Primary Care Provider Reason for Visit * Reason Comments Procedure Tubes Encounter Details Date Type Department Care Team (Late st Contact Info) Description 10/08/2024 9:00 AM EST Office Visit Otolaryngology [facility] [address] [place] [address] Rolando Ervin DO [address] [place] [address] ETD (Eustachian tube dysfunction), bilateral* Allergies Active Allergy Reactions Criticality Noted Date [...] times a year. 07/17/20 23 Active Calcitonin ([place]) 200 UNIT/ACT Nasal Solution (Fortical)Indicati ons:Compression fracture of lumbar vertebra, unspecified lumbar vertebral level, initial encounter ([facility]) Administer 1 [place] into one nostril in the morning. alternate [...] HFrEF (heart failure with reduced ejection fraction) ([facility]) Take 2 Tablets by mouth [...] Suspension (Flonase)Indicatio ns:Chronic nasal congestion Administer 1 [place] into each nostril in the morning and 1 [place] before bedtime. 15.8 mL 4 09/12/20 24 Active Albuterol Sulfate HFA 108 (90 Base) MCG/ACT Inhalation Aerosol SolutionIndication s:COPD, severity to be determined ([facility]) INHALE 2 PUFFS BY MOUTH EVERY 4 [...] Pressure - - Pulse - - Temperature - - Respiratory Rate - - Oxygen Saturation - - Inhaled Oxygen Concentration - - Weight 60.3 kg (133 lb) 10/08/2024 9:13 AM EST Height 160 cm (5' 3") 10/08/2024 9:13 AM EST Body Mass Index 23.56 10/08/2024 9:13 AM EST documented in this encounter Progress Notes * Rolando Ervin DO - 10/08/2024 9:43 AM EST Otolaryngology Head and Neck Surgery 10/08/2024 PROCEDURE NOTE: Informed consent was obtained after explaining the procedure including the risks associated with hearing loss, tympanostomy tube otorrhea, and residual tympanic membrane perforation (incidence of 0.5%). I explained that the tubes usually stay in place for an average of 10-12 months, but that the range is from a few weeks to several years (in some instances). The need to keep the ears dry by usingearplugs when swimming, showering, or bathing was explained. A time out was called by the provider and staff present. The patient was identified and the correct procedure to be done was confirmed thecorrect site was identified, patient is positioned correctly and the appropriate equipment is available. Using the operating microscope, the ears were examined. The ears were cleaned with suction and/or ear instruments. The RIGHT tympanic membrane was anesthetized with topical phenol on a small cotton-tipped applicator. A radial myringotomy was performed. No fluid was aspirated from the middle ear. A t ympanostomy tube was inserted. The identical procedure was done on the LEFT ear. No fluid was aspirated from the middle ear and a tympanostomy tube was inserted. Assessment: 68-year-old female with bilateral etd. Plan: Tubes placed as above. Floxin drops for 3 days. Follow-up with Amrik Cooper in 2 months for tube check Rolando Ervin DO, [facility] Video Game Repair Technician, Department of Otolaryngology-Head and Neck Surgery [facility], [place] 10/08/2024 9:44 AM documented in this encounter Nursing Notes * Ursula Gupta LPN - 10/08/2024 9:14 AM EST Chief Complaint Patient presents with Procedure Tubes Patient returns today for bilateral ear tube placement. Pt reports her ears are still the same, no changes since last visit. Plan: Discussed in office tube placement vs. Continued monitoring. Pt is quite bothered by her ears and would like to proceed with tube placement. Will contact [facility] prescriber to see if she can hold few days prior to placement. F/U sooner with any concerns. Pt verbalized understanding and agrees with plan. Questions/Concerns addressed. KAREY Seaman Otolaryngology - Head and Neck Surgery [place], [place] 08/18/24 documented in this encounter Plan of Treatment Upcoming Encounters Date Type Department Care Team (Late st Contact Info) Description 10/08/2024 1:00 PM EST Office Visit Nephrology, [facility] [address] [place] [address] Salvatore Coreas MD 200 [place] [address] 12/10/2024 1:00 PM EDT Office Visit Otolaryngology [facility] [address] [place] [address] Amrik Hernandez PA-C [address] [place] [address] 01/01/2025 10:00 AM EDT Office Visit [facility] [address] [place] [address] Emani Parikh CRNP [address] [place] [address] 02/04/2025 11:40 AM EDT Office Visit [facility] [address] [place] [address] Emani Parikh CRNP [address] [place] [address] 08/18/2025 10:20 AM EST Office Visit [facility] [address] [place] [id number] Akbar Daniel DO [address] [place] [address] Health Maintenance Due Date Last Done Comments DISCUSS TOBACCO CESSATION (REFER TO SMARTSET #6842) 1955 Depression Screening 1966 Albumin/Creatinine Ratio 1972 [...] D LEVEL ONCE IN A LIFETIME-USE SMARTSET# 74523 Completed 01/10/2024, 10/11/2023, 12/02/2021, Additional history exists [...] this encounter Medical Devices Implanted Type Area Wan Support Specialist Device Identifier Shelf Expiration Date Model / Serial / Lot Graft Marker Coronary - [id number] Implanted:Qty: 1 on 01/15/2012 at [place] [facility] [place] N/A: Aorta VM CARDIO VASCULAR 04/16/2014 [id number] / / [id number] Sut Steel 6 M654g - [id number] Implanted:Qty: 6 on 01/15/2012 at OR [facility] [place] N/A: Chest DO NOT USE 10/17/2016 M654G / / [id number] Sut Steel 6 M654g - [id number] Implanted:Qty: 2 on 01/15/2012 at OR [facility] [place] N/A: Chest DO NOT USE 10/17/2016 M654G / / [id number] Graft Marker Coronary - [id number] Implanted:Qty: 1 on 01/15/2012 at OR [facility] [place] N/A: Aorta VM CARDIO VASCULAR 08/16/2013 [id number] / / [id number] Lens Intraoc 15.5 - [id number] - [id number] Implanted:Qty: 1 on 10/21/2019 by Tay Acevedo MD at OR [facility] Left: Eye BAUSCH & LOMB 01/15/2024 [id number] / [id number] / Lens Intraoc 16.0 - [id number] - [id number] Implanted:Qty: 1 on 11/04/2019 by Tay Acevedo MD at [facility] Right: Eye BAUSCH & LOMB 05/17/2024 [id number] / [id number] / documented as of this encounter Visit Diagnoses Diagnosis ETD (Eustachian tube dysfunction), bilateral- Primary documented in this encounter Advance Directives * Full Code (Latest Code Status on File) Date Activated Date Inactivated Comments 01/15/2012 3:49 PM 01/20/2012 4:10 PM This order re flects the patients wishes and were consensually agreed upon. Care Teams Sheet Roller Operator Relationship Specialty Start Date End Date Akbar Daniel DO [address] [place] [address] PCP - General Family Medicine 08/22/22 documented as of this encounter
--- OUTSIDE RECORDS SUMMARY | 2024-10-22 06:08 | External Medical Summary | Summary of Care ---
Author Name Unknown Organization [facility] [address] [facility] [address] Phone [phone] Care Team Providers Care Air Antisubmarine Officer Name Role Phone Akbar Dainel DO Primary Care Provider Encounter Details Date Type Department Care Team (Late st Contact Info) Description 10/10/[address] [facility] [address] [place] [address] Akbar Daniel DO [address] [place] [address] Allergies Active Allergy Reactions Criticality Noted Date [...] as of this encounter (statuses as of 10/10/2024) Medications LORAZEPAM 1 MG PO TABSIndications:Pt also [...] times a year. 07/17/20 23 Active Calcitonin ([place]) 200 UNIT/ACT Nasal Solution (Fortical)Indicati ons:Compression fracture of lumbar vertebra, unspecified lumbar vertebral level, initial encounter ([facility]) Administer 1 [place] into one nostril in the morning. alternate [...] HFrEF (heart failure with reduced ejection fraction) ([facility]) Take 2 Tablets by mouth in the [...] Suspension (Flonase)Indicatio ns:Chronic nasal congestion Administer 1 [place] into each nostril in the morning and 1 [place] before bedtime. 15.8 mL 4 09/12/20 24 Active Albuterol Sulfate HFA 108 (90 Base) MCG/ACT Inhalation Aerosol SolutionIndication s:COPD, severity to be determined ([facility]) INHALE 2 PUFFS BY MOUTH EVERY 4 HOURS NEEDED FOR SHORTNESS OF BREATH 18 g 3 09/19/19 25 Active hydrALAZINE HCl 25 MG Oral Tablet (Apresoline) Take 1 Tablet by mouth in the morning and 1 Tablet at noon and 1 Tablet before bedtime. 270 Tablet 3 10/01/19 Active amLODIPine Besylate 5 MG Oral Tablet [...] Tablet every 8 hours as needed. 09/19/19 Active Hospital, Clinic, or Other Facility Administered Medication Ordered Dose Route Frequency Start Date End Date Status Albuterol Sulfate (Proventil) (2.5 MG/3ML) 0.083% inhalation solution 2.5 mgIndications:COPD, severity to be determined ([facility]) 2.5 mg NEBULIZER ONCE PRN 10/01/2024 10/01/2025 Active documented as of this encounter (statuses as of 10/10/2024) Active Problems Problem Noted Date Diagnosed Date [...] as of this encounter (statuses as of 10/10/2024) Social History Tobacco Use Types Packs/Day Years [...] 1:00 PM EDT Office Visit Otol[facility]ology [facility] [address] [place] [address] Amrik Hernandez PA-C [address] [place] [address] 01/01/2025 10:00 AM EDT Office Visit [facility] [address] [place] [address] Emani Parikh CRNP [address] [place] [address] 02/04/2025 11:40 AM EDT Office Visit [facility] [address] [place] [address] Emani Parikh CRNP [address] [place] [address] 08/18/2025 10:20 AM EST Office Visit [facility] [address] [place] [address] Akbar Daniel DO [address] [place] [address] Health Maintenance Due Date Last Done Comments DISCUSS TOBACCO CESSATION (REFER TO SMARTSET #5749) 1955 Depression Screening 1966 Albumin/Creatinine Ratio 1972 [...] 09/18, 08/22/2022, Additional history exists GFR 09/09/2025 09/25/2024, 08/18, 08/11/2024, Additional history exists O2 ASSESSMENT COMPLETED IN PAST YEAR FOR COPD 10/08/2025 10/08/2024 Colonoscopy 11/06/2032 11/06/2022, 03/02/2022 Colorectal Cancer Screening 11/06/2032 Lung Cancer Screening Completed 01/03/2012 VITAMIN D LEVEL ONCE IN A LIFETIME-USE SMARTSET# 85369 Completed 01/10/2024, 10/11/2023, 12/02/2021, Additional history exists [...] this encounter Medical Devices Implanted Type Area Mechanical Engineer Device Identifier Shelf Expiration Date Model / Serial / Lot Graft Marker Coronary - [id number] Implanted:Qty: 1 on 01/15/2012 at [place] [facility] [place] N/A: Aorta VM CARDIO VASCULAR 04/16/2014 [id number] / / [id number] Sut Steel 6 M654g - [id number] Implanted:Qty: 6 on 01/15/2012 at [place] [facility] [place] N/A: Chest DO NOT USE 10/17/2016 M654G / / [id number] Sut Steel 6 M654g - [id number] Implanted:Qty: 2 on 01/15/2012 at [place] [facility] [place] N/A: Chest DO NOT USE 10/17/2016 M654G / / [id number] Graft Marker Coronary - [id number] Implanted:Qty: 1 on 01/15/2012 at [place] [facility] [place] N/A: Aorta VM CARDIO VASCULAR 08/16/2013 [id number] / / [id number] Lens Intraoc 15.5 - [id number] - [id number] Implanted:Qty: 1 on 10/21/2019 by Tay Acevedo MD at OR [facility] Left: Eye BAUSCH & LOMB 01/15/2024 [id number] / [id number] / Lens Intraoc 16.0 - [id number] - [id number] Implanted:Qty: 1 on 11/04/2019 by Tay Acevedo MD at OR [facility] Right: Eye BAUSCH & LOMB 05/17/2024 [id number] / [id number] / documented as of this encounter Procedures Procedure Name Priority Date/Time Associated Diagnosis Comments CHEMISTRY-OUTSIDE Routine 09/25/2024 XR CHEST 1 VIEW Routine 08/30/2024 documented in this encounter Results * (ABNORMAL) CHEMISTRY-OUTSIDE (09/25/2024) Not all results display below - see scan for full detail OUTSIDE LAB (SEE SCANNED REPORT) Comment:SCAN INCLUDES - CMP, FE, TIBC, TRANSFERRIN, FERRITIN, B12, FOLATE, CBCD CREATININE 0.80 0.6 - 1.2 MG/DL OUTSIDE LAB (SEE SCANNED REPORT) EGFR 79.71 ML/MIN OUTSIDE LA B (SEE SCANNED REPORT) POTASSIUM 4.1 3.5 - 5.1 MMOL/L OUTSIDE LAB (SEE SCANNED REPORT) GLUCOSE 126(A) 70 - 99 MG/DL OUTSIDE LAB (SEE SCANNED REPORT) HOURS FASTING OUTSID E LAB (SEE SCANNED REPORT) TRIGLYCERIDES-OUT SIDE LAB OUTSIDE LAB (SEE SCANNED REPORT) CHOLESTEROL-OUTSI DE LAB OUTSIDE LAB (SEE SCANNED REPORT) HDL-OUTSIDE LAB OUTS ELLYN LAB (SEE SCANNED REPORT) CHOL/HDL RATIO-OUTSIDE LAB OUTSIDE LA B (SEE SCANNED REPORT) LDL (CALCULATED)-OUTS ELLYN LAB OUTSIDE LAB (SEE SCANNED REPORT) LDL (DIRECT MEASURE)-OUTSIDE LAB OUTSIDE LAB (SEE SCANNED REPORT) HEMOGLOBIN, S9H-IXLLDYF LAB OUTSIDE LAB (SEE SCANNED REPORT) PHOSPHORUS-OUTSID E LAB OUTSIDE LAB (SEE SCANNED REPORT) PTH-OUTSIDE LAB OUTS ELLYN LAB (SEE SCANNED REPORT) MICROALBUMIN RATIO-OUTSIDE LAB OUTSIDE LA B (SEE SCANNED REPORT) PROTEIN, UA-OUTSIDE LAB OUTSIDE LAB (SEE SCANNED REPORT) HGB 13.2 12.0 - 16.0 G/DL OUTSIDE LAB (SEE SCANNED REPORT) 09/25/2024 us History Per Patient LABORATORY Final Result OUTSIDE LAB (SEE SCANNED REPORT) * XR CHEST 1 VIEW (08/30/2024) Anatomical Region Laterality Modality Chest Other 08/30/2024 Efra Worthy MD RADIOLOGY (RAD GENERAL) Final Result documented in this encounter Advance Directives * Full Code (Latest Code Status on File) Date Activated Date Inactivated Comments 01/15/2012 3:49 PM 01/20/2012 4:10 PM This order re flects the patients wishes and were consensually agreed upon. Care Teams Air Antisubmarine Officer Relationship Specialty Start Date End Date Akbar Daniel DO [address] [place] [address] PCP - General Family Medicine 08/22/22 documented as of this encounter
--- OUTSIDE RECORDS SUMMARY | 2024-10-22 06:09 | External Medical Summary | Summary of Care ---
Author Name Unknown Organization [facility] Address [address] [facility] [place] [address] Phone [phone] Care Team Providers Care Gill Box Fixer Name Role Phone Akbar Daniel DO Primary Care Provider Reason for Visit * Reason Onset Date Comments Home Health 09/30/2024 Call from Team [facility] Health Encounter Details Date Type Department Care Team (Late st Contact Info) Description 09/30/2024 Telephone Family Practice [facility] [address] [place] [address] Akbar Daniel DO [address] [facility] [place] [address] Home Health (Call from Team [facility]) Allergies Active Allergy Reactions Criticality Noted Date [...] as of this encounter (statuses as of 10/01/2024) Medications LORAZEPAM 1 MG PO TABSIndications:Pt also taking 1 tab in evening. Take 1 Tablet by mouth in the morning and 1 Tablet at noon and 1 Tablet before bedtime. Active NITROGLYCERIN 0.4 MG SL SUBLIndications:Ch ronic coronary artery disease,S/P coronary artery bypass with four autogenous grafts as needed 25 Tab 5 10/16/19 12 Active Additional Information Patient not taking.Reported on 09/09/2024 Eliquis 5 MG Oral Tablet Take 1 [...] times a year. 07/17/20 23 Active Calcitonin ([place]) 200 UNIT/ACT Nasal Solution (Fortical)Indicati ons:Compression fracture of lumbar vertebra, unspecified lumbar vertebral level, initial encounter ([facility]) Administer 1 Susan into one nostril in the morning. alternate nostrils.. 3 mL 11 06/26/20 24 Active Omeprazole 40 MG Oral Capsule Delayed Release (PriLOSEC)Indicati ons:GERD (gastroesophageal reflux disease) TAKE 1 CAPSULE BY MOUTH IN THE MORNING AND BEFORE BEDTIME 180 Capsule 1 07/03/20 24 Active Potassium Chloride Stephanie ER 20 MEQ Oral Tablet Extended Release Take 1 Tablet by mouth in the morning. 09/05/20 24 Active Spironolactone 25 MG Oral Tablet (Aldactone) Take 1 Tablet by mouth in the morning. 09/05/20 24 Active Gabapentin 400 MG Oral Capsule (Neurontin) Take 1 Capsule by mouth in the morning and 1 Capsule at noon and 1 Capsule before bedtime. 09/05/20 24 Active Magnesium Oxide 400 MG Oral Tablet Take 1 Tablet by mouth in the morning. 09/05/20 24 Active Metoprolol Succinate ER 50 MG Oral Tablet Extended Release 24 Hour (toPROL XL) Take 1 Tablet by mouth in the morning and 1 Tablet in the evening. 09/08/20 24 Active Losartan Potassium 50 MG Oral Tablet (Cozaar)Indication s:Chronic HFrEF (heart failure with reduced ejection fraction) ([facility]) Take 2 Tablets by mouth in the morning. 09/08/20 24 Active Diphenoxylate-Atro pine 2.5-0.025 MG/5ML Oral Liquid (Lomotil)Indicatio ns:Chronic diarrhea Take 5 mL by mouth every evening. 60 mL 5 09/09/20 24 Active Saccharomyces boulardii 250 MG Oral Capsule (Florastor)Indicat ions:Recurrent Clostridioides difficile diarrhea Take 1 Capsule by mouth in the morning and 1 Capsule before bedtime. 180 Capsule 3 09/09/20 24 Active Fluticasone Propionate 50 MCG/ACT Nasal Suspension (Flonase)Indicatio ns:Chronic nasal congestion Administer 1 Susan into each nostril in the morning and 1 Susan before bedtime. 15.8 mL 4 09/12/20 24 Active Albuterol Sulfate HFA 108 (90 Base) MCG/ACT Inhalation Aerosol SolutionIndication s:COPD, severity to be determined ([facility]) INHALE 2 PUFFS BY MOUTH EVERY 4 HOURS NEEDED FOR SHORTNESS OF BREATH 18 g 3 09/19/19 Active amLODIPine Besylate 5 MG Oral Tablet (Norvasc) Take 1 Tablet by mouth in the morning and 1 Tablet before bedtime. 09/05/20 025 Discontin ued(Refil l) hydrALAZINE HCl 25 MG Oral Tablet (Apresoline) Take 1 Tablet by mouth in the morning and 1 Tablet at noon and 1 Tablet before bedtime. 09/05/20 025 Discontin ued(Refil l) Isosorbide Mononitrate ER 30 MG Oral Tablet Extended Release 24 Hour (Imdur) Take 1.5 Tablets by mouth in the morning. 09/08/20 24 025 Discontin ued(Refil l) amLODIPine Besylate 5 MG Oral Tablet (Norvasc) Take 1 Tablet by mouth in the morning and 1 Tablet before bedtime. 180 Tablet 3 10/01/19 25 025 Discontin ued(Refil l) hydrALAZINE HCl 25 MG Oral Tablet (Apresoline) Take 1 Tablet by mouth in the morning and 1 Tablet at noon and 1 Tablet before bedtime. 270 Tablet 3 10/01/19 25 025 Discontin ued(Refil l) documented as of this encounter (statuses as of 10/01/2024) Active Problems Problem Noted Date Diagnosed Date [...] as of this encounter (statuses as of 10/01/2024) Social History Tobacco Use Types Packs/Day Years [...] encounter Miscellaneous Notes * Telephone Encounter - Starr Trinidad OSA - 09/30/2024 7:30 AM EST Estelita is calling in from [facility], in reference to Sierra Wang. She would like to let Dr Akbar Daniel know that Sierra is out of her Hydralazine and Amlodipine that was ordered when admitted into [facility]. Sierra's blood pressure was 130/62 which was taken on Sun09.29.2024 around 1pm. If needed, you may contact Estelita at [phone] Thank you documented in this encounter Plan of Treatment Upcoming Encounters Date Type Department Care Team (Late st Contact Info) Description 10/08/2024 9:00 AM EST Office Visit Otol[facility]ology [facility] [address] [place] [address] Rolando Ervin DO [address] [place] [address] 10/08/2024 1:00 PM EST Office Visit Nephrology, [facility] [address] [place] [address] Salvatore Coreas MD [address] [facility] [place] [address] 01/01/2025 10:00 AM EDT Office Visit [facility] [address] [place] [address] Emani Parikh CRNP [address] [place] [address] 02/04/2025 11:40 AM EDT Office Visit [facility] [address] [place] [address] Emani Parikh CRNP [address] [place] [address] 08/18/2025 10:20 AM EST Office Visit Family Practice [facility] [address] [place] [address] Akbar Daniel, [address] [place] [address] Health Maintenance Due Date Last Done Comments DISCUSS TOBACCO CESSATION (REFER TO SMARTSET #0451) 1955 Depression Screening 1966 Albumin/Creatinine Ratio 1972 [...] D LEVEL ONCE IN A LIFETIME-USE SMARTSET# 37475 Completed 01/10/2024, 10/11/2023, 12/02/2021, Additional history exists [...] this encounter Medical Devices Implanted Type Area Vocational Services Specialist Device Identifier Shelf Expiration Date Model / Serial / Lot Graft Marker Coronary - [id number] Implanted:Qty: 1 on 01/15/2012 at OR [facility] N/A: Aorta VM CARDIO VASCULAR 04/16/2014 [id number] / / [id number] Sut Steel 6 M654g - [id number] Implanted:Qty: 6 on 01/15/2012 at OR [facility] N/A: Chest DO NOT USE 10/17/2016 [id number] / / [id number] Sut Steel 6 M654g - [id number] Implanted:Qty: 2 on 01/15/2012 at OR [facility] N/A: Chest DO NOT USE 10/17/2016 M654G / / [id number] Graft Marker Coronary - [id number] Implanted:Qty: 1 on 01/15/2012 at OR [facility] N/A: Aorta VM CARDIO VASCULAR 08/16/2013 [id number] / / [id number] Lens Intraoc 15.5 - [id number] - [id number] Implanted:Qty: 1 on 10/21/2019 by Tay Acevedo MD at OR [facility] Left: Eye BAUSCH & LOMB 01/15/2024 [id number] / [id number] / Lens Intraoc 16.0 - [id number] - [id number] Implanted:Qty: 1 on 11/04/2019 by Tay Acevedo MD at OR [facility] Right: Eye BAUSCH & LOMB 05/17/2024 [id number] / [id number] / documented as of this encounter Advance Directives * Full Code (Latest Code Status on File) Date Activated Date Inactivated Comments 01/15/2012 3:49 PM 01/20/2012 4:10 PM This order re flects the patients wishes and were consensually agreed upon. Care Teams Gill Box Fixer Relationship Specialty Start Date End Date Akbar Daniel DO [address] [place] [address] PCP - General Family Medicine 08/22/22 documented as of this encounter
--- OUTSIDE RECORDS SUMMARY | 2024-10-22 06:09 | External Medical Summary | Summary of Care ---
Author Name Unknown Organization [facility] Address [address] [place] [address] Phone [phone] Care Team Providers Care Recreation Teacher Name Role Phone Tom Daniel DO Primary Care Provider Reason for Visit * Reason Onset Date Comments Medication Refill 10/06/2024 Encounter Details Date Type Department Care Team (Late st Contact Info) Description 10/06/2024 [facility] [address] [facility] [address] Tom Daniel DO [address] [facility] [address] Allergies Active Allergy Reactions Criticality Noted [...] as of this encounter (statuses as of 10/06/2024) Medications LORAZEPAM 1 MG PO TABSIndications:Pt also [...] times a year. 07/17/20 23 Active Calcitonin ([place]) 200 UNIT/ACT Nasal Solution (Fortical)Indicati ons:Compression fracture of lumbar vertebra, unspecified lumbar vertebral level, initial encounter ([facility]) Administer 1 [place] into one nostril in the morning. alternate [...] with reduced ejection fraction) ([facility]) Take 2 Tablets by mouth in the [...] Suspension (Flonase)Indicatio ns:Chronic nasal congestion Administer 1 [place] into each nostril in the morning and 1 [place] before bedtime. 15.8 mL 4 09/12/20 24 [...] the morning. 90 Tablet 10/06/19 25 Active Potassium Chloride Stephanie ER 20 MEQ Oral Tablet Extended Release Take 1 Tablet by mouth in the morning. 09/05/20 24 025 Discontin ued(Refil l) Spironolactone 25 MG Oral Tablet (Aldactone) Take 1 Tablet by mouth in the morning. 09/05/20 24 025 Discontin ued(Refil l) Magnesium Oxide 400 MG Oral Tablet Take 1 Tablet by mouth in the morning. 09/05/20 24 025 Discontin ued(Refil l) Metoprolol Succinate ER 50 MG Oral Tablet Extended Release 24 Hour (toPROL XL) Take 1 Tablet by mouth in the morning and 1 Tablet in the evening. 09/08/20 24 025 Discontin ued(Refil l) Hospital, Clinic, or Other Facility Administered Medication Ordered Dose Route Frequency Start Date End Date Status Albuterol Sulfate (Proventil) (2.5 MG/3ML) 0.083% inhalation solution 2.5 mgIndications:COPD, severity to be determined ([facility]) 2.5 mg NEBULIZER ONCE PRN 10/01/2024 10/01/2025 Active documented as of this encounter (statuses as of 10/06/2024) Active Problems Problem Noted Date Diagnosed Date [...] as of this encounter (statuses as of 10/06/2024) Social History Tobacco Use Types Packs/Day Years [...] Telephone Encounter - Emani Parikh CRNP - 10/06/2024 9:51 AM EST Signed Prescriptions: Disp Refills Potassium Chloride Stephanie ER 20 MEQ Oral Tab*90 Tab*0 Sig: Take 1 Tablet by mouth in the morning. Authorizing Provider: TOM DANIEL Ordering User: EMANI PARIKH Metoprolol Succinate ER 50 MG Oral Tablet *180 Ta*0 Sig: Take 1 Tablet by mouth in the morning and 1 Tablet in the evening. Authorizing Provider: TOM DANIEL Ordering User: EMANI PARIKH Magnesium Oxide 400 MG Oral Tablet 90 Tab*0 Sig: Take 1 Tablet by mouth in the morning. Authorizing Provider: TOM DANIEL Ordering User: EMANI PARIKH Spironolactone 25 MG Oral Tablet ([place]*90 Tab*0 Sig: Take 1 Tablet by mouth in the morning. Authorizing Provider: TOM DANIEL Ordering User: RENUKA PARIKH SA * Telephone Encounter - Cyndi Ferguson LPN - 10/06/2024 9:08 AM EST Did you pend patient's preferred pharmacy and medication before forwarding?yes Pharmacy: [id number] [facility] Pending Prescriptions: Disp Refills Potassium Chloride Stephanie ER 20 MEQ Oral Ta*90 Tab*3 Sig: Take 1 Tablet by mouth in the morning. Metoprolol Succinate ER 50 MG Oral Tablet*180 Ta*3 Sig: Take 1 Tablet by mouth in the morning and 1 Tablet in the evening. Magnesium Oxide 400 MG Oral Tablet 90 Tab*3 Sig: Take 1 Tablet by mouth in the morning. Spironolactone 25 MG Oral Tablet (Aldacto*90 Tab*3 Sig: Take 1 Tablet by mouth in the morning. Last Visit: 10/01/2024 (in office), Visit date not found (telemedicine) Next Visit: 01/01/2025 If no future appointments scheduled, and last appointment is greater than a year ago, please schedule patient for a follow-up appointment Last date the medication was ordered: 09/05/24 Is this request for a controlled substance?No Urine Drug Screen:No results found for this or any previous visit. Patient Phone Numbers Labs: Lab Results Component Value Date/Time CREAT 1.0 09/09/2024 11:30 AM CREAT 0.53 (A) 06/17/2022 12:00 AM CREAT 0.8 05/07/2014 04:20 PM POTASSIUM 3.5 09/09/2024 11:30 AM POTASSIUM 3.4 (A) 06/17/2022 12:00 AM POTASSIUM 4.4 05/07/2014 04:20 PM LDL 31 08/11/2024 12:06 PM ALT 26 08/11/2024 12:06 PM ALT 24 12/19/2011 05:17 PM HGBA1C 6.2 (H) 08/11/2024 12:06 PM HGBA1C 6.1 (A) 06/17/2022 12:00 AM HGBA1C 5.7 11/10/2019 12:00 AM documented in this encounter Plan of Treatment Upcoming Encounters Date Type Department Care Team (Late st Contact Info) Description 10/08/2024 9:00 AM EST Office Visit Otolaryngology [facility] [address] [place] [address] Rolando Ervin, DO [address] [place] [address] 10/08/2024 1:00 PM EST Office Visit Nephrology, [facility] [address] [place] [address] Salvatore Coreas MD [address] [place] [address] 01/01/2025 10:00 AM EDT Office Visit [facility] [address] [place] [address] Emani Parikh CRNP [address] [place] [address] 02/04/2025 11:40 AM EDT Office Visit [facility] [address] [place] [address] Emani Parikh CRNP [address] [place] [address] 08/18/2025 10:20 AM EST Office Visit [facility] [address] [place] [address] Tom Daniel, [address] [facility] [place] [address] Health Maintenance Due Date Last Done Comments DISCUSS TOBACCO CESSATION (REFER TO SMARTSET #5867) 1955 Depression Screening 1966 Albumin/Creatinine Ratio 1972 [...] D LEVEL ONCE IN A LIFETIME-USE SMARTSET# 60998 Completed 01/10/2024, 10/11/2023, 12/02/2021, Additional history exists [...] this encounter Medical Devices Implanted Type Area Heel Cementer Device Identifier Shelf Expiration Date Model / Serial / Lot Graft Marker Coronary - [id number] Implanted:Qty: 1 on 01/15/2012 at [place] [facility] N/A: Aorta VM CARDIO VASCULAR 04/16/2014 [id number] / / [id number] Sut Steel 6 M654g - [id number] Implanted:Qty: 6 on 01/15/2012 at OR [facility] N/A: Chest DO NOT USE 10/17/2016 M654G / / [id number] Sut Steel 6 M654g - [id number] Implanted:Qty: 2 on 01/15/2012 at OR [facility] N/A: Chest DO NOT USE 10/17/2016 M654G / / [id number] Graft Marker Coronary - [id number] Implanted:Qty: 1 on 01/15/2012 at OR [facility] N/A: Aorta VM CARDIO VASCULAR 08/16/2013 [id number] / / [id number] Lens Intraoc 15.5 - [id number] - [id number] Implanted:Qty: 1 on 10/21/2019 by Tay Acevedo MD at OR [facility] Left: Eye BAUSCH & LOMB 01/15/2024 [id number] / [id number] / Lens Intraoc 16.0 - [id number] - [id number] Implanted:Qty: 1 on 11/04/2019 by Tay Acevedo MD at OR [facility] Right: Eye BAUSCH & LOMB 05/17/2024 [id number] / [id number] / documented as of this encounter Advance Directives * Full Code (Latest Code Status on File) Date Activated Date Inactivated Comments 01/15/2012 3:49 PM 01/20/2012 4:10 PM This order re flects the patients wishes and were consensually agreed upon. Care Teams Recreation Teacher Relationship Specialty Start Date End Date Tom Daniel DO [address] [address] PCP - General Family Medicine 08/22/22 documented as of this encounter
--- OUTSIDE RECORDS SUMMARY | 2024-10-22 06:09 | External Medical Summary | Summary of Care ---
Author Name Unknown Organization [facility] Address [address] [place] [address] Phone [phone] Care Team Providers Care Assistant Public Defender Name Role Phone Akbar Daniel DO Primary Care Provider Reason for Visit * Reason Onset Date Comments Home Health 09/30/2024 Call from Team [facility] Health Encounter Details Date Type Department Care Team (Late st Contact Info) Description 09/30/2024 Telephone Family Practice [facility] [address] [place] [address] Akbar Daniel DO [address] [facility] [place] [address] Home Health (Call from Team [facility]) Allergies Active Allergy Reactions Criticality Noted [...] as of this encounter (statuses as of 10/02/2024) Medications LORAZEPAM 1 MG PO TABSIndications:Pt also [...] times a year. 07/17/20 23 Active Calcitonin ([place]) 200 UNIT/ACT Nasal Solution (Fortical)Indicati ons:Compression fracture of lumbar vertebra, unspecified lumbar vertebral level, initial encounter ([facility]) Administer 1 [place] into one nostril in the morning. alternate [...] (heart failure with reduced ejection fraction) ([facility]) Take 2 Tablets by mouth in the morning. 09/08/20 Active Diphenoxylate-Atro pine 2.5-0.025 MG/5ML Oral Liquid (Lomotil)Indicatio ns:Chronic diarrhea Take 5 mL by mouth every evening. 60 mL 5 09/09/20 Active Additional Information Patient not taking.Reported on 10/01/2024 Saccharomyces boulardii 250 MG Oral Capsule (Florastor)Indicat ions:Recurrent Clostridioides difficile diarrhea Take 1 Capsule by mouth in the morning and 1 Capsule before bedtime. 180 Capsule 3 09/09/20 Active Fluticasone Propionate 50 MCG/ACT Nasal Suspension (Flonase)Indicatio ns:Chronic nasal congestion Administer 1 [place] into each nostril in the morning and 1 [place] before bedtime. 15.8 mL 4 09/12/20 Active Albuterol Sulfate HFA 108 (90 Base) MCG/ACT Inhalation Aerosol SolutionIndication s:COPD, severity to be determined ([facility]) INHALE 2 PUFFS BY MOUTH EVERY [...] as of this encounter (statuses as of 10/02/2024) Active Problems Problem Noted Date Diagnosed Date [...] as of this encounter (statuses as of 10/02/2024) Social History Tobacco Use Types Packs/Day Years [...] Miscellaneous Notes * Telephone Encounter - Keeley Downs CRNP - 10/02/2024 8:39 PM EST It looks like refills were sent 10/01/24 * Telephone Encounter - Starr Trinidad OSA - 09/30/2024 7:30 AM EST Estelita is calling in from [facility], in reference to Sierra Wang. She would like to let Dr Akbar Daniel know that Sierra is out of her Hydralazine and Amlodipine that was ordered when admitted into [facility]. Sierra's blood pressure was 130/62 which was taken on Sun09.29.2024 around 1pm. If needed, you may contact Estelita at [phone] Thank you documented in this encounter Plan of Treatment Upcoming Encounters Date Type Department Care Team (Late st Contact Info) Description 10/08/2024 9:00 AM EST Office Visit Otolaryngology [facility] [address] [place] [address] Rolando Ervin DO [address] [place] [address] 10/08/2024 1:00 PM EST Office Visit Nephrology, [address] [place] [address] Salvatore Coreas MD [address] [place] [address] 01/01/2025 10:00 AM EDT Office Visit Family Practice [facility] [address] [place] [address] Emani Parikh CRNP [address] [place] [address] 02/04/2025 11:40 AM EDT Office Visit [facility] Practice [facility] [address] [place] [address] Emani Parikh CRNP [address] [place] [address] 08/18/2025 10:20 AM EST Office Visit [facility] Practice [facility] [address] [place] [address] Akbar Daniel DO [address] [place] [address] Health Maintenance Due Date Last Done Comments DISCUSS TOBACCO CESSATION (REFER TO SMARTSET #0762) 1955 Depression Screening 1966 Albumin/Creatinine Ratio 1972 [...] D LEVEL ONCE IN A LIFETIME-USE SMARTSET# 86108 Completed 01/10/2024, 10/11/2023, 12/02/2021, Additional history exists [...] this encounter Medical Devices Implanted Type Area Associate Professor Of Art History Device Identifier Shelf Expiration Date Model / Serial / Lot Graft Marker Coronary - [id number] Implanted:Qty: 1 on 01/15/2012 at [place] [facility] N/A: Aorta VM CARDIO VASCULAR 04/16/2014 86771 / / [id number] Sut Steel 6 M654g - [id number] Implanted:Qty: 6 on 01/15/2012 at [place] [facility] N/A: Chest DO NOT USE 10/17/2016 M654G / / [id number] Sut Steel 6 M654g - [id number] Implanted:Qty: 2 on 01/15/2012 at [place] [facility] N/A: Chest DO NOT USE 10/17/2016 M654G / / [id number] Graft Marker Coronary - [id number] Implanted:Qty: 1 on 01/15/2012 at [place] [facility] N/A: Aorta VM CARDIO VASCULAR 08/16/2013 [id number] / / [id number] Lens Intraoc 15.5 - [id number] - [id number] Implanted:Qty: 1 on 10/21/2019 by Tay Acevedo MD at OR [facility] Left: Eye BAUSCH & LOMB 01/15/2024 [id number] / [id number] / Lens Intraoc 16.0 - [id number] - [id number] Implanted:Qty: 1 on 11/04/2019 by Tay Acevedo MD at OR [facility] Right: Eye BAUSCH & LOMB 05/17/2024 [id number] / [id number] / documented as of this encounter Advance Directives * Full Code (Latest Code Status on File) Date Activated Date Inactivated Comments 01/15/2012 3:49 PM 01/20/2012 4:10 PM This order re flects the patients wishes and were consensually agreed upon. Care Teams Assistant Public Defender Relationship Specialty Start Date End Date Akbar Daniel DO [address] [place] [address] PCP - General Family Medicine 08/22/22 documented as of this encounter
--- OUTSIDE RECORDS SUMMARY | 2024-10-22 06:09 | External Medical Summary | Summary of Care ---
Author Name Unknown Organization [facility] Address [address] [place] [facility] [place] [address] Phone [phone] Care Team Providers Care Coin Counter And Wrapper Name Role Phone Akbar Daniel DO Primary Care Provider Reason for Visit * Reason Onset Date Comments Home Health 09/30/2024 Call from Team [facility] Health Encounter Details Date Type Department Care Team (Late st Contact Info) Description 09/30/2024 Telephone Family Practice [facility] [address] [place] [address] Akbar Daniel DO [address] [employer] [facility] [place] [address] Home Health (Call from Team [facility]) Allergies Active Allergy Reactions Criticality Noted [...] times a year. 07/17/20 23 Active Calcitonin ([place]) 200 UNIT/ACT Nasal Solution (Fortical)Indicati ons:Compression fracture of lumbar vertebra, unspecified lumbar vertebral level, initial encounter ([facility]) Administer 1 [place] into one nostril in the morning. alternate [...] mouth in the morning. 09/05/20 24 Active Isosorbide Mononitrate ER 30 MG Oral Tablet Extended Release 24 Hour (Imdur) Take 1.5 Tablets by mouth in the morning. 09/08/20 24 Active Metoprolol Succinate ER 50 MG Oral Tablet Extended Release 24 Hour (toPROL XL) Take 1 Tablet by mouth in the morning and 1 Tablet in the evening. 09/08/20 24 Active Losartan Potassium 50 MG Oral Tablet (Cozaar)Indication s:Chronic HFrEF (heart failure with reduced ejection fraction) ([facility]) Take 2 Tablets by mouth [...] Suspension (Flonase)Indicatio ns:Chronic nasal congestion Administer 1 [place] into each nostril in the morning and 1 [place] before bedtime. 15.8 mL 4 09/12/20 24 Active Albuterol Sulfate HFA 108 (90 Base) MCG/ACT Inhalation Aerosol SolutionIndication s:COPD, severity to be determined ([facility]) INHALE 2 PUFFS BY MOUTH EVERY 4 HOURS NEEDED FOR SHORTNESS OF BREATH 18 g 3 09/19/19 25 Active amLODIPine Besylate 5 MG Oral Tablet (Norvasc) Take 1 Tablet by mouth in the morning and 1 Tablet before bedtime. 180 Tablet 3 10/01/19 25 Active hydrALAZINE HCl 25 MG Oral [...] before bedtime. 09/05/20 025 Discontin ued(Refil l) documented as of [...] Amlodipine that was ordered when admitted into [facility]. Sierra's blood pressure was 130/62 which was taken on Sun09.29.2024 around 1pm. If needed, you may contact Estelita at [phone] Thank you documented in this encounter Plan of Treatment Upcoming Encounters Date Type Department Care Team (Late st Contact Info) Description 10/01/2024 11:40 AM EST Office Visit [facility] ([place], [place]) [address] [address] Emani Parikh CRNP [address] [place] [address] [address] 10/08/2024 9:00 AM EST Office Visit Otolaryngology [facility] [address] [address] Rolando Ervin DO [address] [place] [address] [address] 10/08/2024 1:00 PM EST Office Visit Nephrology, [facility] [address] [place] [address] Salvatore Coreas MD [address] [place] [address] 02/04/2025 11:40 AM EDT Office Visit [facility] ([place], [place]) [address] [address] Emani Parikh CRNP [address] [place] [address] 08/18/2025 10:20 AM EST Office Visit Family Practice [facility] [address] [place] [address] Akbar Daniel, [address] [place] [address] Health Maintenance Due Date Last Done Comments DISCUSS TOBACCO CESSATION (REFER TO SMARTSET #6127) 1955 Depression Screening 1966 Albumin/Creatinine Ratio 1972 [...] ASSESSMENT COMPLETED IN PAST YEAR FOR COPD 09/09/2025 09/09/2024 Colonoscopy 11/06/2032 11/06/2022, 03/02/2022 Colorectal Cancer Screening 11/06/2032 Lung Cancer Screening Completed 01/03/2012 VITAMIN D LEVEL ONCE IN A LIFETIME-USE SMARTSET# [id number] Completed 01/10/2024, 10/11/2023, 12/02/2021, Additional history exists [...] encounter Medical Devices Implanted Type Area Director Of Materials Management Device Identifier Shelf Expiration Date Model / Serial / Lot Graft Marker Coronary - [id number] Implanted:Qty: 1 on 01/15/2012 at OR [facility] N/A: Aorta VM CARDIO VASCULAR 04/16/2014 [id number] / / [id number] Sut Steel 6 M654g - [id number] Implanted:Qty: 6 on 01/15/2012 at OR [facility] N/A: Chest DO NOT USE 10/17/2016 M654G / / [id number] Sut Steel 6 M654g - [id number] Implanted:Qty: 2 on 01/15/2012 at OR [facility] N/A: Chest DO NOT USE 10/17/2016 M654G / / [id number] Graft Marker Coronary - [id number] Implanted:Qty: 1 on 01/15/2012 at OR [facility] N/A: Aorta VM CARDIO VASCULAR 08/16/2013 [id number] / / [id number] Lens Intraoc 15.5 - [id number] - [id number] Implanted:Qty: 1 on 10/21/2019 by Tay Acevedo MD at OR [facility] Left: Eye BAUSCH & LOMB 01/15/2024 [id number] / [id number] / Lens Intraoc 16.0 - [id number] - [id number] Implanted:Qty: 1 on 11/04/2019 by Tay Acevedo MD at OR [facility] Right: Eye BAUSCH & LOMB 05/17/2024 [id number] / [id number] / documented as of this encounter Advance Directives * Full Code (Latest Code Status on File) Date Activated Date Inactivated Comments 01/15/2012 3:49 PM 01/20/2012 4:10 PM This order re flects the patients wishes and were consensually agreed upon. Care Teams Coin Counter And Wrapper Relationship Specialty Start Date End Date Akbar Daniel DO [address] [place] [address] [place] [address] PCP - General Family Medicine 08/22/22 documented as of this encounter
--- OUTSIDE RECORDS SUMMARY | 2024-10-22 06:09 | External Medical Summary | Summary of Care ---
Author Name Unknown Organization [facility] Address [address] [place] [address] Phone [phone] Care Team Providers Care Floor Winder Name Role Phone Akbar Daniel DO Primary Care Provider Reason for Visit * Reason Onset Date Comments Home Health 09/30/2024 Call from Team [facility] Health Encounter Details Date Type Department Care Team (Late st Contact Info) Description 09/30/2024 Telephone Family Practice [facility] [address] [place] [address] Akbar Daniel DO [address] [employer] [facility] [place] [address] Home Health (Call from Team [facility]) Allergies Active Allergy Reactions Criticality Noted [...] as of this encounter (statuses as of 10/03/2024) Medications LORAZEPAM 1 MG PO TABSIndications:Pt also [...] times a year. 07/17/20 23 Active Calcitonin ([place]) 200 UNIT/ACT Nasal Solution (Fortical)Indicati ons:Compression fracture of lumbar vertebra, unspecified lumbar vertebral level, initial encounter ([facility]) Administer 1 [place] into one nostril in the morning. alternate [...] failure with reduced ejection fraction) ([facility]) Take 2 Tablets by mouth [...] Suspension (Flonase)Indicatio ns:Chronic nasal congestion Administer 1 [place] into each nostril in the morning and 1 [place] before bedtime. 15.8 mL 4 09/12/20 Active Albuterol Sulfate HFA 108 (90 Base) MCG/ACT Inhalation Aerosol SolutionIndication s:COPD, severity to be determined ([facility]) INHALE 2 PUFFS BY MOUTH [...] as of this encounter (statuses as of 10/03/2024) Active Problems Problem Noted Date Diagnosed Date [...] as of this encounter (statuses as of 10/03/2024) Social History Tobacco Use Types Packs/Day Years [...] Telephone Encounter - Bushra Henning LPN - 10/03/2024 2:49 PM EST Left detailed message on identified VM for Estelita. Advised to call the office is she has any further questions or concerns. * Telephone Encounter - Keeley Downs CRNP [...] Amlodipine that was ordered when admitted into [facility]. Sierra's blood pressure was 130/62 which was taken on Sun09.29.2024 around 1pm. If needed, you may contact Estelita at [phone] Thank you documented in this encounter Plan of Treatment Upcoming Encounters Date Type Department Care Team (Late st Contact Info) Description 10/08/2024 9:00 AM EST Office Visit Otolaryngology [facility] [address] [place] [address] Rolando Ervin DO [address] [address] 10/08/2024 1:00 PM EST Office Visit [facility] [address] [place] [address] Salvatore Coreas MD [address] [place] [address] 01/01/2025 10:00 AM EDT Office Visit [facility] [address] [place] [address] Emani Parikh CRNP [address] [place] [address] 02/04/2025 11:40 AM EDT Office Visit [facility] [address] [place] [address] Emani Parikh CRNP [address] [place] [address] 08/18/2025 10:20 AM EST Office Visit [facility] [address] [place] [address] Akbar Daniel, [address] [place] [address] Health Maintenance Due Date Last Done Comments DISCUSS TOBACCO CESSATION (REFER TO SMARTSET #1732) 1955 Depression Screening 1966 Albumin/Creatinine Ratio 1972 [...] D LEVEL ONCE IN A LIFETIME-USE SMARTSET# [id number] Completed 01/10/2024, 10/11/2023, 12/02/2021, Additional history exists [...] this encounter Medical Devices Implanted Type Area Supervisor Metal Fabricating Device Identifier Shelf Expiration Date Model / Serial / Lot Graft Marker Coronary - [id number] Implanted:Qty: 1 on 01/15/2012 at OR [facility] N/A: Aorta VM CARDIO VASCULAR 04/16/2014 [id number] / / [id number] Sut Steel 6 M654g - [id number] Implanted:Qty: 6 on 01/15/2012 at OR [facility] N/A: Chest DO NOT USE 10/17/2016 M654G / / [id number] Sut Steel 6 M654g - [id number] Implanted:Qty: 2 on 01/15/2012 at OR [facility] N/A: Chest DO NOT USE 10/17/2016 M654G / / [id number] Graft Marker Coronary - [id number] Implanted:Qty: 1 on 01/15/2012 at OR [facility] N/A: Aorta VM CARDIO VASCULAR 08/16/2013 [id number] / / [id number] Lens Intraoc 15.5 - [id number] - [id number] Implanted:Qty: 1 on 10/21/2019 by Tay Acevedo MD at OR [facility] Left: Eye BAUSCH & LOMB 01/15/2024 [id number] / [id number] / Lens Intraoc 16.0 - [id number] - [id number] Implanted:Qty: 1 on 11/04/2019 by Tay Acevedo MD at OR [facility] Right: Eye BAUSCH & LOMB 05/17/2024 [id number] / [id number] / documented as of this encounter Advance Directives * Full Code (Latest Code Status on File) Date Activated Date Inactivated Comments 01/15/2012 3:49 PM 01/20/2012 4:10 PM This order re flects the patients wishes and were consensually agreed upon. Care Teams Floor Winder Relationship Specialty Start Date End Date Akbar Daniel DO [address] [place] [address] [address] PCP - General Family Medicine 08/22/22 documented as of this encounter
--- OUTSIDE RECORDS SUMMARY | 2024-10-22 06:09 | External Medical Summary | Summary of Care ---
Author Name Unknown Organization [facility] Address [address] [place] [address] Phone [phone] Care Team Providers Care Tetryl Screen Operator Name Role Phone Alfonzo Danielwesley Castellanosrazia Primary Care Provider Reason for Visit * Reason Comments Follow Up Patient presents in office today for a 6m follow-up visit (discuss medication(s)) Encounter Details Date Type Department Care Team (Late st Contact Info) Description 10/01/2024 11:40 AM EST Office Visit Family Practice [facility] [address] [place] [address] Emani Parikh CRNP [address] [place] [id number] COPD, severity to be determined ([facility]; Chronic coronary artery disease; Chronic HFrEF (heart failure with reduced ejection fraction) ([facility]); Paroxysmal atrial fibrillation ([facility]); Chronic diarrhea; HTN, goal to be determined; Tobacco use disorder; Iron deficiency anemia, unspecified iron deficiency anemia type; Pleural effusion; Prolonged QT interval; Compression fracture of lumbar vertebra, unspecified lumbar vertebral level, initial encounter ([facility]); DM type 2 causing neurological disease ([facility]) Allergies Active Allergy Reactions Criticality Noted Date [...] times a year. 07/17/20 23 Active Calcitonin (Monclova) 200 UNIT/ACT Nasal Solution (Fortical)Indicati ons:Compression fracture of lumbar vertebra, unspecified lumbar vertebral level, initial encounter ([facility]) Administer 1 [place] into one nostril in the morning. alternate [...] noon and 1 Capsule before bedtime. 09/05/20 Active Magnesium Oxide 400 MG Oral Tablet Take 1 Tablet by mouth in the morning. 09/05/20 Active Metoprolol Succinate ER 50 MG Oral Tablet Extended Release 24 Hour (toPROL XL) Take 1 Tablet by mouth in the morning and 1 Tablet in the evening. 09/08/20 Active Losartan Potassium 50 MG Oral Tablet [...] Suspension (Flonase)Indicatio ns:Chronic nasal congestion Administer 1 [place] into each nostril in the morning and 1 [place] before bedtime. 15.8 mL 4 09/12/20 Active Albuterol Sulfate HFA 108 (90 Base) MCG/ACT Inhalation Aerosol SolutionIndication s:COPD, severity to be determined ([facility]) INHALE 2 PUFFS BY MOUTH EVERY 4 [...] 45 Tablet 2 10/01/19 25 025 Active Isosorbide Mononitrate ER 30 MG Oral [...] 3 10/01/19 25 025 Discontin ued(Refil l) Hospital, Clinic, or [...] Reading Time Taken Comments Blood Pressure 130/72 10/01/2024 11:44 AM EST Pulse 66 10/01/2024 11:44 AM EST Temperature - - Respiratory Rate 16 10/01/2024 11:44 AM EST Oxygen Saturation 98% 10/01/2024 11:44 AM EST Inhaled Oxygen Concentration - - Weight - - Height 160 cm (5' 3") 10/01/2024 11:44 AM EST Body Mass Index - - documented in this encounter Progress Notes * Emani Parikh CRNP - 10/01/2024 11:51 AM EST Follow up Family Medicine Visit CC: Chief Complaint Patient presents with Follow Up Patient presents in office today for a 6m follow-up visit (discuss medication(s)) History of Present Illness: Sierra Wang is a 68 year old female presenting for hospital follow up. She was hospitalized on 08/24/2024 for acute encephalopathy due to polypharmacy per hospital records. At the time she was taking oxycodone 5 mg, gabapentin 800 mg qid and lorazepam 1 mg 4 times per day. She also has had uncontrolled b/p but has been able to have this improved. Treated HAYDEN on CKD She also had elevated blood pressure and amlodipine and hydralazine was added. Isosorbide 1.[address] brain was other than cerebral atrophy and chronic microvascular changes. Bilateral mastoiditis present. Repeat CT was normal U/s kidneys normal She was told that she has COPD. She did have low oxygen levels initially in hospital.She has hx of smoking 1 ppd x 50 years. Denies sob. She does cough mostly randomly. Still smoking 1 ppd. Nonproductive cough. S/o zosyn, and steroid at recent hospital admission. Social History Socioeconomic History Marital status: Spouse [...] on file Housing Stability: Not on file PMH: Past Medical History: Diagnosis Date Anxiety CAD (coronary artery disease) Chronic anemia Gastric ulcer Smoker Type II or unspecified type diabetes mellitus with neurological manifestations, not stated as uncontrolled(250.60) ([facility]) Past Surgical History: Procedure Laterality Date CABG, ARTERIAL, SINGLE 01/15/2012 CORONARY ARTERY BYPASS GRAFT USING ARTERY 1 GRAFT performed by JOHN ERWIN [place] [facility] MISCELLANEOUS ORDER ([facility] ONLY) small bowel resection REMOVAL OF APPENDIX 23 years ago REMOVE CATARACT, INSERT LENS PROSTH Left 10/21/2019 left EXTRACAPSULAR CATARACT REMOVAL WITH INTRAOCULAR LENS performed by Tay Acevedo MD at OR [facility] REMOVE CATARACT, INSERT LENS PROSTH Right 11/04/2019 right EXTRACAPSULAR CATARACT REMOVAL WITH INTRAOCULAR LENS performed by Tay Acevedo MD at OR [facility] REMOVE GALLBLADDER 25 years ago REMOVE PANCREAS, PARTIAL (WHIPPLE) REMOVE STOMACH, PARTIAL REMOVE TONSILS & ADENOIDS, AGE 12+ REPAIR CORONARY ARTERY, GRAFT CABG 8 yrs ago Current Outpatient Medications Medication Sig Dispense Refill amLODIPine Besylate 5 MG Oral Tablet (Norvasc) Take 1 Tablet by mouth in the morning and 1 Tablet before bedtime. 180 Tablet 3 Albuterol Sulfate HFA 108 (90 Base) MCG/ACT Inhalation Aerosol Solution INHALE 2 PUFFS BY MOUTH EVERY 4 HOURS NEEDED FOR SHORTNESS OF BREATH 18 g 3 Fluticasone Propionate 50 MCG/ACT Nasal Suspension (Flonase) Administer 1 [place] into each nostril in the morning and 1 [place] before bedtime. 15.8 mL 4 Saccharomyces boulardii 250 MG Oral Capsule (Florastor) Take 1 Capsule by mouth in the morning and 1 Capsule before bedtime. 180 Capsule 3 Gabapentin 400 MG Oral Capsule (Neurontin) Take 1 Capsule by mouth in the morning and 1 Capsule at noon and 1 Capsule before bedtime. Isosorbide Mononitrate ER 30 MG Oral Tablet Extended Release 24 Hour (Imdur) Take 1.5 Tablets by mouth in the morning. Losartan Potassium 50 MG Oral Tablet (Cozaar) Take 2 Tablets by mouth in the morning. Magnesium Oxide 400 MG Oral Tablet Take 1 Tablet by mouth in the morning. Metoprolol Succinate ER 50 MG Oral Tablet Extended Release 24 Hour (toPROL XL) Take 1 Tablet by mouth in the morning and 1 Tablet in the evening. Potassium Chloride Stephanie ER 20 MEQ Oral Tablet Extended Release Take 1 Tablet by mouth in the morning. Spironolactone 25 MG Oral Tablet (Aldactone) Take 1 Tablet by mouth in the morning. Omeprazole 40 MG Oral Capsule Delayed Release (PriLOSEC) TAKE 1 CAPSULE BY MOUTH IN THE MORNING ANDBEFORE BEDTIME 180 Capsule 1 Calcitonin (Monclova) 200 UNIT/ACT Nasal Solution (Fortical) Administer 1 [place] into one nostril in the morning. alternate nostrils.. 3 mL 11 Pravastatin Sodium 40 MG Oral Tablet (Pravachol) TAKE 1 TABLET BY MOUTH EVERYDAY AT BEDTIME 90 Tablet 3 Eliquis 5 MG Oral Tablet Take 1 Tablet by mouth in the morning and 1 Tablet before bedtime. LORAZEPAM 1 MG PO TABS Take 1 Tablet by mouth in the morning and 1 Tablet at noon and 1 Tablet before bedtime. NITROGLYCERIN 0.4 MG SL SUBL as needed 25 Tab 5 hydrALAZINE HCl 25 MG Oral Tablet (Apresoline) Take 1 Tablet by mouth in the morning and 1 Tablet at noon and 1 Tablet before bedtime. (Patient not taking: Reported on 10/01/2024) 270 Tablet 3 Diphenoxylate-Atropine 2.5-0.025 MG/5ML Oral Liquid (Lomotil) Take 5 mL by mouth every evening. (Patient not taking: Reported on 10/01/2024) 60 mL 5 Iron Dextran 50 MG/ML Injection Solution (Infed) Administer 50 mg intravenously. Receives infusionsfor 3 weeks, three times a year. (Patient not taking: Reported on 10/01/2024) No current facility-administered medications for this visit. Review of patient's allergies indicates: Allergen Reactions Benzyl Alcohol Anaphylaxis Iodinated Contrast Media Lisinopril Chills/rigors Prochlorperazine Anaphylaxis and Edema airway Promethazine Anaphylaxis Angioedema Saccharin Anaphylaxis Amoxicillin Other (Please comment) Pt c/o headaches with amox Erythromycin Other (Please comment) Pt has headaches and earaches with this medication. Furosemide Itching Iodine Itching Allergy as per patient with itching. Simvastatin Itching There is no immunization history on file for this patient. Review of Systems: Review of Systems Constitutional: Negative for fatigue. Respiratory: Positive for cough. Negative for chest tightness, shortness of breath and wheezing. Cardiovascular: Negative for chest pain, palpitations and leg swelling. Musculoskeletal: Positive for back pain. Physical Exam: BP 130/72 | Pulse 66 | Resp 16 | Ht 5' 3" (1.6 m) | SpO2 98% | BMI 24.70 kg/m | BSA 1.68 m Physical Exam HENT: Head: Normocephalic. Cardiovascular: Rate and Rhythm: Normal rate and regular rhythm. Pulmonary: Effort: Pulmonary effort is normal. Breath sounds: Decreased breath sounds present. Neurological: Mental Status: She is alert and oriented to person, place, and time. Psychiatric: Mood and Affect: Mood is anxious. Assessment and Plan: 1. COPD, severity to be determined (HCC) (Primary) On ICS/LABA/LAMA Needs follow up x ray in 4-6 weeks for pleural effusion - SPIROMETRY B/A BRONCHODILATOR; Future - Albuterol Sulfate (Proventil) (2.5 MG/3ML) 0.083% inhalation solution 2.5 mg - DIFFUSION CAPACITY (DLCO); Future - LUNG VOLUMES (PLETHYSMOGRAPHY); Future - PULMONARY STRESS TESTING 2. Chronic coronary artery disease Nstemi likely due to demand hypoxia in hospital No anginal symptoms 3. Chronic HFrEF (heart failure with reduced ejection fraction) (HCC) Weight is stable Continue cardiology appt 4. Paroxysmal atrial fibrillation (HCC) Continue eliquis 5. Chronic diarrhea Hx of c diff On vancomycin daily 6. HTN, goal to be determined Improved control Continue amlodipine Continue hydralazine 7. Tobacco use disorder Still smoking 1 ppd Does not desire cessation 8. Iron deficiency anemia, unspecified iron deficiency anemia type 10. Prolonged QT interval Noted in hospital around 523---506---513 Repeat labs showing normal k and renal function returned to normal. I have advised the patient to call our office incase of any worsening or new symptoms. I spent a total of 40-54 minutes (exact time 45 mins) on the date of service in preparation, delivery, and documentation of the care provided to Sierra Wang excluding any time spent in the performance of separately billed services. JI Brown, DEANDRA [facility] Family Medicine documented in this encounter Nursing Notes * Beth Montes MED ASSIST - 10/01/2024 11:40 AM EST The patient has been properly identified by confirmation of name and date of . Chief Complaint Patient presents with Follow Up Patient presents in office today for a 6m follow-up visit (discuss medication(s)) documented in this encounter Plan of Treatment Upcoming Encounters Date Type Department Care Team (Late st Contact Info) Description 10/08/2024 9:00 AM EST Office Visit Otolaryngology [facility] [address] [place] [address] Rolando Ervin DO [address] [place] [address] 10/08/2024 1:00 PM EST Office Visit Nephrology, [facility] [address] [place] [address] Salvatore Coreas MD [address] [place] [address] 01/01/2025 10:00 AM EDT Office Visit [facility] [address] [place] [address] Emani Parikh CRNP [address] [place], [place] [address] 02/04/2025 11:40 AM EDT Office Visit [facility] [address] [place] [address] Emani Parikh CRNP [address] [place] [address] 08/18/2025 10:20 AM EST Office Visit [facility] [address] [place], [place] [address] Akbar Daniel DO [address] [place] [address] Scheduled Orders Name Type Priority Associated Diagnoses Order Schedule SPIROMETRY B/A BRONCHODILATOR Procedures Routine COPD, severity to be determined (HCC) Expected: 10/01/2024, Expires: 11/01/2025 DIFFUSION CAPACITY (DLCO) Procedures Routine COPD, severity to be determined (HCC) Expected: 10/01/2024 (Approximate), Expires: 10/01/2025 LUNG VOLUMES (PLETHYSMOGRAPHY) Procedures Routine COPD, severity to be determined (HCC) Expected: 10/01/2024 (Approximate), Expires: 10/01/2025 PULMONARY STRESS TESTING Procedures Routine COPD, severity to be determined (HCC) Ordered: 10/01/2024 XR CHEST 2 VIEWS Medical Imaging Routine Pleural effusion Ordered: 10/03/2024 Health Maintenance Due Date Last Done Comments DISCUSS TOBACCO CESSATION (REFER TO SMARTSET #9961) 1954 Depression Screening 1966 Albumin/Creatinine Ratio 1972 [...] D LEVEL ONCE IN A LIFETIME-USE SMARTSET# [id number] Completed 01/10/2024, 10/11/2023, 12/02/2021, Additional history exists [...] this encounter Medical Devices Implanted Type Area Drawing Press Operator Device Identifier Shelf Expiration Date Model / Serial / Lot Graft Marker Coronary - [id number] Implanted:Qty: 1 on 01/15/2012 at [place] [facility] N/A: Aorta VM CARDIO VASCULAR 04/16/2014 [id number] / / [id number] Sut Steel 6 M654g - [id number] Implanted:Qty: 6 on 01/15/2012 at [place] [facility] N/A: Chest DO NOT USE 10/17/2016 [id number] / / [id number] Sut Steel 6 M654g - [id number] Implanted:Qty: 2 on 01/15/2012 at [place] [facility] N/A: Chest DO NOT USE 10/17/2016 M654G / / [id number] Graft Marker Coronary - [id number] Implanted:Qty: 1 on 01/15/2012 at [place] [facility] N/A: Aorta VM CARDIO VASCULAR 08/16/2013 [id number] / / [id number] Lens Intraoc 15.5 - [id number] - [id number] Implanted:Qty: 1 on 10/21/2019 by Tay Acevedo MD at OR [facility] Left: Eye BAUSCH & LOMB 01/15/2024 [id number] / [id number] / Lens Intraoc 16.0 - [id number] - [id number] Implanted:Qty: 1 on 11/04/2019 by Tay Acevedo MD at OR [facility] Right: Eye BAUSCH & LOMB 05/17/2024 [id number] / [id number] / documented as of this encounter Visit Diagnoses Diagnosis COPD, severity to be determined (HCC)- Primary Chronic airway obstruction, not elsewhere classified Chronic coronary artery disease Coronary atherosclerosis of unspecified type of vessel, [place] or graft Chronic HFrEF (heart failure with reduced ejection fraction) (HCC) Paroxysmal atrial fibrillation (HCC) Atrial fibrillation Chronic diarrhea Diarrhea HTN, goal to be determined Unspecified essential hypertension Tobacco use disorder Iron deficiency anemia, unspecified iron deficiency anemia type Pleural effusion Unspecified pleural effusion Prolonged QT interval Nonspecific abnormal electrocardiogram (ECG) (EKG) Compression fracture of lumbar vertebra, unspecified lumbar vertebral level, initial encounter (HCC) DM type 2 causing neurological disease (HCC) Type II or unspecified type diabetes mellitus with neurological manifestations, not stated as uncontrolled documented in this encounter Advance Directives * Full Code (Latest Code Status on File) Date Activated Date Inactivated Comments 01/15/2012 3:49 PM 01/20/2012 4:10 PM This order re flects the patients wishes and were consensually agreed upon. Care Teams Tetryl Screen Operator Relationship Specialty Start Date End Date Akbar Daniel DO [address] [place] [address] PCP - General Family Medicine 08/22/22 documented as of this encounter
--- OUTSIDE RECORDS SUMMARY | 2024-10-22 06:09 | External Medical Summary | Summary of Care ---
Author Name Unknown Organization [facility] Address [address] [place] [address] Phone [phone] Care Team Providers Care Motion Study Analyst Name Role Phone Akbar Daniel DO Primary Care Provider Reason for Visit * Reason Onset Date Comments Home Health 09/30/2024 Call from Team [facility] Health Encounter Details Date Type Department Care Team (Late st Contact Info) Description 09/30/2024 Telephone Family Practice [facility] [address] [place] [address] Akbar Daniel DO [address] [place] [facility] [place] [address] Home Health (Call from Team [facility]) Allergies Active Allergy Reactions Criticality Noted [...] times a year. 07/17/20 23 Active Calcitonin ([place]) 200 UNIT/ACT Nasal Solution (Fortical)Indicati ons:Compression fracture of lumbar vertebra, unspecified lumbar vertebral level, initial encounter ([facility]) Administer 1 [place] into one nostril in the morning. alternate [...] failure with reduced ejection fraction) ([facility]) Take 2 Tablets by mouth in [...] Suspension (Flonase)Indicatio ns:Chronic nasal congestion Administer 1 [place] into each nostril in the morning and 1 [place] before bedtime. 15.8 mL 4 09/12/20 Active Albuterol Sulfate HFA 108 (90 Base) MCG/ACT Inhalation Aerosol SolutionIndication s:COPD, severity to be determined ([facility]) INHALE 2 PUFFS BY MOUTH EVERY [...] Amlodipine that was ordered when admitted into [facility]. Sierra's blood pressure was 130/62 which was taken on Sun09.29.2024 around 1pm. If needed, you may contact Estelita at [phone] Thank you documented in this encounter Plan of Treatment Upcoming Encounters Date Type Department Care Team (Late st Contact Info) Description 10/08/2024 9:00 AM EST Office Visit Otolaryngology [facility] [address] [place] [address] Rolando Ervin DO [address] [place] [address] 10/08/2024 1:00 PM EST Office Visit Nephrology, [facility] [address] [place] [address] Salvatore Coreas MD [address] [place] [address] 01/01/2025 10:00 AM EDT Office Visit Family Practice [facility] [address] [place] [address] Emani Parikh CRNP [address] [place] [address] 02/04/2025 11:40 AM EDT Office Visit [facility] [address] [place] [address] Emani Parikh CRNP [address] [place] [address] 08/18/2025 10:20 AM EST Office Visit [facility] Practice [facility] [address] [place] [address] Akbar Daniel DO [address] [place] [address] Health Maintenance Due Date Last Done Comments DISCUSS TOBACCO CESSATION (REFER TO SMARTSET #3300) 1955 Depression Screening 1966 Albumin/Creatinine Ratio 1972 [...] D LEVEL ONCE IN A LIFETIME-USE SMARTSET# [id number] Completed 01/10/2024, 10/11/2023, 12/02/2021, Additional history exists [...] this encounter Medical Devices Implanted Type Area Rn Access Device Identifier Shelf Expiration Date Model / Serial / Lot Graft Marker Coronary - [id number] Implanted:Qty: 1 on 01/15/2012 [place] [facility] [place]: Aorta VM CARDIO VASCULAR 04/16/2014 [id number] / / [id number] Sut Steel 6 M654g - [id number] Implanted:Qty: 6 on 01/15/2012 [place] [facility] [place] N/A: Chest DO NOT USE 10/17/2016 M654G / / [id number] Sut Steel 6 M654g - [id number] Implanted:Qty: 2 on 01/15/2012 [place] [facility] [place] N/A: Chest DO NOT USE 10/17/2016 M654G / / [id number] Graft Marker Coronary - [id number] Implanted:Qty: 1 on 01/15/2012 [place] [facility] [place]/A: Aorta VM CARDIO VASCULAR 08/16/2013 [id number] / / [id number] Lens Intraoc 15.5 - [id number] - [id number] Implanted:Qty: 1 on 10/21/2019 by Tay Acevedo MD at OR [facility] Left: Eye BAUSCH & LOMB 01/15/2024 [id number] / [id number] / Lens Intraoc 16.0 - [id number] - [id number] Implanted:Qty: 1 on 11/04/2019 by Tay Acevedo MD at OR [facility] Right: Eye BAUSCH & LOMB 05/17/2024 [id number] / [id number] / documented as of this encounter Advance Directives * Full Code (Latest Code Status on File) Date Activated Date Inactivated Comments 01/15/2012 3:49 PM 01/20/2012 4:10 PM This order re flects the patients wishes and were consensually agreed upon. Care Teams Motion Study Analyst Relationship Specialty Start Date End Date Akbar Daniel DO [address] [place] [address] PCP - General Family Medicine 08/22/22 documented as of this encounter
[2024-10-22] MEDS: ALBUT/IPRATROP 3MG/0.5MG NEB 3 ML VIAL NEB SCH (07:21)
--- OUTSIDE RECORDS SUMMARY | 2024-10-22 08:02 | External Medical Summary | Summary of Care ---
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 07/17/20 23 Active Calcitonin ([place]) 200 UNIT/ACT Nasal Solution (Fortical)Indicati ons:Compression fracture of lumbar vertebra, unspecified lumbar vertebral level, initial encounter ([facility]) Administer 1 [place] into one nostril in the morning. alternate [...] 1 Capsule before bedtime. 09/05/20 24 Active Diphenoxylate-Atro pine 2.5-0.025 MG/5ML Oral [...] Suspension (Flonase)Indicatio ns:Chronic nasal congestion Administer 1 Montrose into each nostril in the morning and 1 Montrose before bedtime. 15.8 mL 4 09/12/20 24 [...] 8 hours as needed. 09/19/19 25 Active Losartan Potassium 50 MG Oral Tablet (Cozaar)Indication s:Chronic HFrEF (heart failure with reduced ejection fraction) (HCC) Take 2 Tablets by mouth in the morning. 180 Tablet 3 10/21/19 25 Active Losartan Potassium 50 MG Oral Tablet (Cozaar)Indication s:Chronic HFrEF (heart failure with reduced ejection fraction) ([facility]) Take 2 Tablets by mouth in the morning. 09/08/20 24 025 Discontin ued(Refil l) Hospital, Clinic, or Other Facility Administered Medication Ordered Dose Route Frequency Start Date End Date Status Albuterol Sulfate (Proventil) (2.5 MG/3ML) 0.083% inhalation solution 2.5 mgIndications:COPD, severity to be determined (HCC) 2.5 mg NEBULIZER ONCE PRN 10/01/2024 10/01/2025 Active documented as of this encounter (statuses as of 10/21/2024) Active Problems Problem Noted Date Diagnosed Date [...] as of this encounter (statuses as of 10/21/2024) Social History Tobacco Use Types Packs/Day Years [...] Telephone Encounter - Tom Daniel DO - 10/21/2024 12:17 PM EST Signed Prescriptions: Disp Refills Losartan Potassium 50 MG Oral Tablet (Coza*180 Ta*3 Sig: Take 2 Tablets by mouth in the morning. Authorizing Provider: TOM DANIEL * Telephone Encounter - Kisha Bentley CMA - 10/20/2024 3:10 PM EST Pt requesting a refill of losartan potassium, previously prescribed by her old PCP. Refill pending if agreeable * Telephone Encounter - Leah Barros PHARM Tech - 10/20/2024 9:32 AM EST Pt calling requesting the following medication below that is listed as "Historical". The following information was provided: Medication Name: Losartan Potassium Strength: 50 MG Oral Tablet Directions: Take 2 Tablets by mouth in the morning and in the evening Preferred Quantity: 360 Previous Prescriber: old pcp Preferred Pharmacy:[id number] Please review and approve if appropriate. Thank you, Leah Barros plater hot dip Trader [facility] 10/20/2024,9:32 AM documented in this encounter Plan of Treatment Upcoming Encounters Date Type Department Care Team (Late st Contact Info) Description 10/23/2024 10:30 AM EST PulmDiagnostic Pulmonary Function Lab, [facility] [address] [address] [address] [address], [address] [place] [address] 12/10/2024 1:00 PM EDT Office Visit Otolaryngology [facility] [address] [place] [address] Amrik Hernandez PA-C [address] [place] [address] 01/01/2025 10:00 AM EDT Office Visit [facility] [address] [place] [address] Emani Parikh CRNP [address] [place] [address] 02/04/2025 11:40 AM EDT Office Visit [facility] [address] [place] [address] Emani Parikh CRNP [address] [place] [address] 08/18/2025 10:20 AM EST Office Visit [facility] [address] [place] [address] Tom Daniel DO [address] [place] [address] Health Maintenance Due Date Last Done Comments DISCUSS TOBACCO CESSATION (REFER TO SMARTSET #3679) 1955 Depression Screening 1966 Albumin/Creatinine Ratio 1972 [...] D LEVEL ONCE IN A LIFETIME-USE SMARTSET# 79710 Completed 01/10/2024, 10/11/2023, 12/02/2021, Additional history exists [...] this encounter Medical Devices Implanted Type Area Stacker Operator Device Identifier Shelf Expiration Date Model / Serial / Lot Graft Marker Coronary - [id number] Implanted:Qty: 1 on 01/15/2012 at [place] [facility] [place] N/A: Aorta VM CARDIO VASCULAR 04/16/2014 [id number] / / [id number] Sut Steel 6 M654g - [id number] Implanted:Qty: 6 on 01/15/2012 at [place] [facility] [place] N/A: Chest DO NOT USE 10/17/2016 M654G / / [id number] Sut Steel 6 M654g - [id number] Implanted:Qty: 2 on 01/15/2012 at OR [facility] – [place] N/A: Chest DO NOT USE 10/17/2016 M654G / / [id number] Graft Marker Coronary - [id number] Implanted:Qty: 1 on 01/15/2012 at OR [facility] – [place] N/A: Aorta VM CARDIO VASCULAR 08/16/2013 [id number] / / [id number] Lens Intraoc 15.5 - [id number] - [id number] Implanted:Qty: 1 on 10/21/2019 by Tay Acevedo MD at OR [facility] Left: Eye BAUSCH & LOMB 01/15/2024 [id number] / [id number] / Lens Intraoc 16.0 - [id number] - [id number] Implanted:Qty: 1 on 11/04/2019 by Tay Acevedo MD at OR [facility] Right: Eye BAUSCH & LOMB 05/17/2024 [id number] / [id number] / documented as of this encounter Visit Diagnoses Diagnosis Chronic HFrEF (heart failure with reduced ejection fraction) (HCC) documented in this encounter Advance Directives * Full Code (Latest Code Status on File) Date Activated Date Inactivated Comments 01/15/2012 3:49 PM 01/20/2012 4:10 PM This order re flects the patients wishes and were consensually agreed upon. Care Teams Fiberglass Boat Finisher Relationship Specialty Start Date End Date Tom Daniel DO [address] [place] [address] PCP - General Family Medicine 08/22/22 documented as of this encounter
[2024-10-22] MEDS: PANTOprazole 40 MG TAB PO SCH (08:24)
[2024-10-22] MEDS: LORazepam 1 MG TAB PO PRN (08:24)
[2024-10-22] MEDS: MAGNESIUM OXIDE 400 MG TAB PO SCH (08:25)
[2024-10-22] MEDS: GABAPENTIN 400 MG CAP PO SCH (08:25)
[2024-10-22] MEDS: APIXABAN 5 MG TABLET PO SCH (08:25)
[2024-10-22] MEDS: METOPROLOL SUCC 50MG EXT REL TAB PO SCH (08:26)
--- NOTE | 2024-10-22 08:44 | Electrocardiogram Report ---
Test Reason : Blood Pressure : */* mmHG Vent. Rate : 89 BPM Atrial Rate : 89 BPM P-R Int : 130 ms QRS Dur : 96 ms QT Int : 364 ms P-R-T Axes : 29 -27 118 degrees QTcB Int : 442 ms Sinus rhythm Premature atrial complexes in a pattern of bigeminy Left ventricular hypertrophy with QRS widening and repolarization abnormality Abnormal ECG When compared with ECG of 01-Sep-2024 14:48, Premature atrial complexes are now Present Premature ventricular complexes no longer present Confirmed by Kt Goodman ([id number]) on 10/22/2024 8:43:59 AM Referred By: REFERRED SELF Confirmed By: Kt Goodman
--- NOTE | 2024-10-22 09:32 | Pulmonary Consultation ---
Date of Consultation October 22, 2024 Assessment & Plan (1) Hypoxia: Patient noted to be profoundly hypoxic despite relatively clear chest CT films. Without findings of pulmonary emboli. Chest CT noted to have enlarged pulmonary trunk and right/left pulmonary arteries concerning for pulmonary hypertension. On review of the patient's previous echocardiogram on 08/25/2024, the patient was noted to have an EF of 40 to 45% with bowing of the LEFT atrium consistent with elevated RIGHT arterial pressure, moderate to severe tricuspid regurgitation, with a PASP of 34 mmHg. Given her history of heart failure and CT findings, would proceed with echocardiogram. Will add bubble study to assess for possible shunting. Patient is bronchospastic on exam. Will place the patient on a course of steroids intravenous for now. Will also add nebulized therapies in the form of budesonide and performance. Will place the patient on Incruse as well. It should be noted that the patient carries an allergy to benzyl alcohol which is a preservative of some of the IV steroids. This had been communicated with pharmacy and, given the fact that she had tolerated Decadron well in the past, we will place her on the same. This was communicated with nursing staff and it will be imperative that we watch closely that the patient receives medication only without preservatives given her risk for anaphylaxis. Given her history of COPD and likely degree of pulmonary pretension, patient very well may have a degree of hypoxia at home that has been unidentified. Would recommend titrating down supplemental oxygen as tolerated. Goal saturation 89 to 93% (2) COPD with emphysema: Appears to be in a degree of exacerbation at this time. She is rhonchorous on the LEFT-sided lung field. Will aggressively treat the patient with nebulizers. We will place her on the combination of triple therapy to include an ICS, LABA, and LAMA. Consideration for discharge to home on a LABA/LAMA and/or ICS/LABA/LAMA medication in the outpatient setting. She does have a rescue inh aler at home. Atelectatic lung castillo appreciated in the lower lung field. Would encourage incentive spirometry. Would encourage out of bed to chair as tolerated. Flutter valve if she has difficulty clearing her secretions. Exacerbation likely in the setting of underlying coronavirus infection. Plan will be to transition to oral steroids when able. Emphysema type: unspecified Qualified Code(s): J43.9 - Emphysema, unspecified (3) Coronavirus infection: As above. Continue with supportive treatment. Will add Mucinex also. (4) Chronic HFrEF (heart failure with reduced ejection fraction): Patient would benefit from diuresis as tolerated, particularly with concern for underlying pulmonary arterial hypertension. (5) Current smoker: Recommend smoking cessation. Patient does note a 20 pound weight loss since August. There is not appear to be an overt consolidative process or concern for masslike structure on CTA. That being said, patient does qualify for ongoing annual CT low-dose lung cancer screening exams which should be performed in the outpatient setting as well. It should also be noted that the patient is scheduled to see pulmonary medicine with formal pulmonary function testing this at [facility]. Certainly, this should be rescheduled and the patient would benefit from pulmonary evaluation in the outpatient setting. She can continue to keep her appointment with [facility] pulmonary as arranged from her primary care provider. (6) Pulmonary hypertension: Likely WHO group 2/3 classification. Echocardiogram with bubble study to be obtained. Continue with diuresis as tolerated. Supervising Physician Co-Signing Physician Notes Patient seen examined with the physician assistant loan processor. Agree with the note as above unless otherwise specified. Patient with hypoxemia in the setting of COPD and atelectasis. Currently on Unasyn for community-acquired pneumonia. Would recommend a 7-day course of antibiotics. Also on high flow oxygen due to hypoxemia. Echocardiogram reviewed which reveals an EF of 40 to 45%. Probable acute heart failure exacerbation contributing to the patient's symptoms. Recommend diuresis and maintain euvolemia. BNP mildly elevated 10/21/2024 at 249. Patient initiated dexamethasone for COPD exacerbation. Patient also on budesonide and formoterol. Recommend discharging home on ICS/LABA/LAMA therapy when stable and follow-up with outpatient PFTs and pulmonary follow-up. On exam she is mildly rhonchorous with a prolonged phase of exhalation. Regular rate and rhythm. No significant edema in her lower extremities. Thank you for the consult. History of Present Illness Reason for Consultation: hypoxia Requesting Physician: Dr. Ortiz Attending Physician: Alexa Toure MD History of Present Illness Patient is a 68-year-old female with a significant past medical history of type 2 diabetes, dyslipidemia, COPD, coronary artery disease status post CABG, heart failure with reduced ejection fraction, paroxysmal A-fib anticoagulated on Eliquis, peripheral arterial disease status post femoropopliteal bypass, hypertension, osteoporosis, migraines, anemia, and tobacco abuse who presented to the hospital in the setting of vomiting. The patient does have chronic diarrhea which is unchanged. Unfortunately, over the past 24 hours she has had increasing vomiting. Additionally, she was weak and lethargic. She was hypoxic upon arrival in the emergency department and placed on 5 L nasal cannula. She did have a recent admission in August for similar presentation. A CTA was obtained which demonstrated no PE and relatively clear lung castillo without significant infiltrative process. Pulmonary medicine consulted for persistent hypoxia. Upon evaluation in room 2422, the patient is awake, alert, and oriented. She denies complaints of chest pain, palpitations, dizziness, lightheadedness, presyncope, cough, hemoptysis, or pleuritic pain. She does report a 16-pjcf-svbs history of smoking with a pack a day going history. She does report a prior diagnosis of COPD, however she reports only being on albuterol which she uses sparingly. She does report a significant family history for lung cancer as both her father and brother carry history of the same. She does report a 20 pound weight loss since August which she equates to being hospitalized. Otherwise, she denies complaints of fevers, unintentional weight loss, decreased appetite, or other beta symptoms. Allergies Allergy/AdvReac Type Severity Reaction Status Date / Time benzyl alcohol Allergy Severe Anaphylaxis Verified 08/15/23 05:44 Iodinated Contrast Media Allergy Severe Rash - IVP Verified 08/15/23 05:44 dye lisinopril Allergy Severe chills,sera Verified 08/15/23 05:44 rs prochlorperazine Allergy Severe Anaphylaxis Verified 08/15/23 05:44 saccharin Allergy Severe Anaphylaxis Verified 08/15/23 05:44 simvastatin Allergy Intermediate itching Verified 08/15/23 05:44 furosemide Allergy Mild rash Verified 08/15/23 05:44 promethazine Allergy Mild rash Verified 08/15/23 05:44 Home Medications Medication Instructions Recorded Confirmed Type albuterol sulfate 90 mcg/actuation 2 inh inhalation Q4H PRN Shortness 10/21/24 10/21/24 History aerosol inhaler Of Breath Or Wheezing apixaban 5 mg tablet (Eliquis) 5 mg PO BID 10/21/24 10/21/24 History calcitonin (sal[place]) 200 1 spray intranasal DAILY 10/21/24 10/21/24 History unit/actuation nasal spray fluticasone propionate 50 1 spray intranasal BID 10/21/24 10/21/24 History mcg/actuation nasal spray,suspension gabapentin 400 mg capsule 400 mg PO TID 10/21/24 10/21/24 History hydralazine 25 mg tablet 25 mg PO TID 10/21/24 10/21/24 History loperamide 2 mg capsule 2 mg PO TID PRN Diarrhea 10/21/24 10/21/24 History lorazepam 1 mg tablet 1 mg PO QID PRN Anxiety 10/21/24 10/21/24 History losartan 100 mg tablet 100 mg PO DAILY 10/21/24 10/21/24 History magnesium oxide 400 mg (241.3 mg 400 mg PO DAILY 10/21/24 10/21/24 History magnesium) tablet metoprolol succinate 50 mg 50 mg PO BID 10/21/24 10/21/24 History tablet,extended release 24 hr omeprazole 40 mg capsule,delayed 40 mg PO DAILY 10/21/24 10/21/24 History release potassium chloride 20 mEq 20 meq PO DAILY 10/21/24 10/21/24 History tablet,extended release(part/cryst) pravastatin 40 mg tablet 40 mg PO HS 10/21/24 10/21/24 History spironolactone 25 mg tablet 25 mg PO DAILY 10/21/24 10/21/24 History trazodone 150 mg tablet 150 mg PO HS 10/21/24 10/21/24 History Patient History Medical History CHF (congestive heart failure) EF 40-45% per 09/2022 ECHO Closed fracture of left proximal humerus Ileus, postoperative Postoperative fever Acute blood loss as cause of postoperative anemia Atrial fibrillation On Eliquis Ischemic cardiomyopathy History of panic attacks worse with large groups History of stomach ulcers 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, twitching and left eye tearing Peripheral neuropathy Migraine Surgical History History of coronary artery bypass graft x4 vessel bypass (~) [facility] x3 vessel bypass (~2009) JEMIMA Wilde follows with Dr Borja ([place]) Family history of reaction to anesthesia DAUGHTER>SLOW TO WAKE UP History of esophagogastroduodenoscopy (EGD) History of colonoscopy H/O abdominal surgery 25-30 YEARS AGO>PART OF STOMACH/COLON/PANCREAS REMOVED D/T STOMACH ULCER History of tooth extraction History of cataract surgery RT/LEFT History of cardiac cath MULTIPLE CATH'S DONE>NO SENTS ([facility]) most recently done in the last five years (9576-1213) done at [facility]. no stents. History of total hysterectomy History of cholecystectomy History of appendectomy Family History Daughter Family hx of colon cancer Family history of diabetes mellitus FHx: thyroid cancer Sister Family history of diabetes mellitus Brother FHx: kidney cancer Family history of diabetes mellitus FHx: pancreatic cancer Social History Smoking Status: Current every day smoker Tobacco Type: Cigarettes Cigarettes Per Day: 1 pack per day since the age of 9; Second Hand Exposure: Yes; Do You Dip or Chew Tobacco: No; Hx Alcohol Use: No Hx Substance Use: No Preferred Language: Gambian Communication Ability: Effective Sterile Preparation Technician Required: No Beliefs That Will Affect Care: None Current Living Situation: Spouse Current Living Situation Comment: 2 story home, only lives on 1 floor Feels Safe at Home: Yes Assistive Devices: Cane Review of Systems Review of Systems: A complete 10 point review of systems was reviewed with the patient with pertinent positives and negatives as per history of present illness. All else were negative. Physical Exam Physical Exam: VITAL SIGNS Vital signs and nursing notes were reviewed. GENERAL 68-year-old female appearing her stated age who is in no acute distress. Communicates well with provider and answers questions appropriately. SKIN Without rashes or lesions. NOSE Midline and without cyanosis. No epistaxis or purulent drainage noted. MOUTH/OROPHARYNX Without perioral cyanosis. NECK Neck with FROM. Supple to palpation. LUNGS Chest wall evaluation demonstrates normal chest wall A:P diameter. Auscultation reveals wheezing and coarse breath sounds appreciated to the LEFT- sided lung field.. CARDIAC RRR with S1/S2. No murmur, rubs, or gallops appreciated. ABDOMEN Abdominal inspection demonstrates flat. BS normoactive all four quadrants. No tenderness, palpable masses, or ascites noted. EXTREMITIES Nail clubbing not present. No peripheral cyanosis. No pretibial edema present. +3/5 radial palpated throughout. PSYCH A&Ox3 and cooperates fully with examiner. Pt is very pleasant and interacts well with examiner. Results & Data Results & Data Vital Signs (Past 12 Hours) Vital Signs Temp Pulse Pulse Resp BP BP BP 10/22/24 08:00 73 10/22/24 08:00 10/22/24 07:21 80 20 10/22/24 07:12 36.7 C 71 22 127/72 10/22/24 02:32 36.7 C 69 20 108/57 L 10/22/24 01:40 70 18 10/22/24 01:14 10/22/24 01:06 80 10/22/24 00:52 10/22/24 00:52 36.6 C 79 12 129/67 10/22/24 00:23 78 20 108/58 L 10/21/24 23:34 90 10/21/24 23:00 78 20 117/78 Pulse Ox O2 Del Method O2 Del Method O2 Flow Rate O2 Flow Rate FiO2 10/22/24 08:00 10/22/24 08:00 High Flow Nasal Cannula 30 60 10/22/24 07:21 89 L High Flow Nasal Cannula 30 60 10/22/24 07:12 91 High Flow Nasal Cannula 10/22/24 02:32 93 High Flow Nasal Cannula 10/22/24 01:40 89 L High Flow Nasal Cannula 30 80 10/22/24 01:14 Oxymask 15 10/22/24 01:06 10/22/24 00:52 Oxymask 15 10/22/24 00:52 86 L Oxymask 15 10/22/24 00:23 92 Oxymask 5 10/21/24 23:34 10/21/24 23:00 93 Oxymask 5 PG Care Time/CCT Total # of Minutes Spent Total Time Spent with Patient: Total time spent is greater than 50% in coordination of care (as documented) at patient's floor/unit and/or counseling patient: Coding Level of Care Code 70300 INT INP/OBS CARE 2/55MIN Diagnoses Hypoxia R09.02 Pulmonary emphysema, unspecified emphysema type J43.9 Emphysema type: unspecified Coronavirus infection B34.2 Chronic HFrEF (heart failure with reduced ejection fraction) I50.22 Current smoker F17.200 Pulmonary hypertension I27.20
[2024-10-22 09:57] LABS: Adenovirus F 40/41 PCR Not Detected (NotDetected); Astrovirus PCR Not Detected (NotDetected); Campylobacter PCR Not Detected (NotDetected); Cryptosporidium PCR Not Detected (NotDetected); Cyclospora cayetanensis PCR Not Detected (NotDetected); Entamoeba histolytica PCR Not Detected (NotDetected); Enteroaggregative E.coli(EAEC) Not Detected (NotDetected); Enteropathogenic E.coli (EPEC) Not Detected (NotDetected); Enterotoxigenic E.coli (ETEC) Not Detected (NotDetected); Giardia lamblia PCR Not Detected (NotDetected); Norovirus GI/GII PCR Not Detected (NotDetected); Plesiomonas shigelloides PCR Not Detected (NotDetected); Rotavirus A PCR Not Detected (NotDetected); Salmonella PCR Not Detected (NotDetected); Sapovirus PCR Not Detected (NotDetected); Shiga-like Toxin E.coli (STEC) Not Detected (NotDetected); Shigella/Enteroinvasive E.coli Not Detected (NotDetected); Vibrio cholerae PCR Not Detected (NotDetected); Vibrio species PCR Not Detected (NotDetected); Yersinia enterocolitica PCR Not Detected (NotDetected)
[2024-10-22] MEDS ORDERED: dexAMETHasone 6 MG in SYRINGE 0 ML IV SCH (10:45)
[2024-10-22] MEDS: POTASSIUM CHLORIDE CRTAB 20 MEQ TABCR PO SCH (10:55)
[2024-10-22 11:32] LABS: Cdiff Toxin B Gene (2yr or >) Positive Cdiff Gene (Neg)
[2024-10-22 11:47] LABS: Cdiff Antigen Positive
[2024-10-22 11:49] LABS: Cdiff Toxin A+B Positive Cdiff Toxin (Negative)
[2024-10-22] MEDS: dexAMETHasone**PF** 10 MG/ML VIAL IV SCH (11:50)
[2024-10-22] MEDS: UMECLIDINIUM BROMIDE 62.5MCG/BLISTER 7 PUFFS/INHALER INH SCH (11:53)
--- NOTE | 2024-10-22 12:14 | Gastrointestinal Consultation ---
Date of Consultation October 22, 2024 Assessment & Plan (1) C. difficile colitis: During my evaluation, the RN entered the room to notify me that the stool had just returned gene/toxin positive for C diff. We will initiate Vancomycin 125 mg QID for now. Anticipate a long taper since she has previously been treated for this infection in July. It is unclear if her chronic diarrhea is related to this, but obviously this is something that could be further assessed in an outpatient setting when she recovers from her C diff as well as recovers from this respiratory issue she is experiencing. Supervising Physician Co-Signing Physician Notes Patient with coronavirus. She also now is C. difficile based on positive PCR and positive toxin. Vancomycin started. Patient has chronic diarrhea not C. difficile related. It is possible this is chronic bile salt malabsorption. Patient think she may have had cholestyramine in the past though this is unclear. Interestingly she gets constipation with even a single Imodium. She states Lomotil worked well however this is not a narcotic scheduled drug and prescribing is very difficult. When she clears her C. difficile. I think she should consider cholestyramine daily. Also went through a few dietary issues that you should minimize nonabsorbable carbohydrates in the form of sugarless and sugar-free products which will aggravate diarrhea. History of Present Illness Reason for Consultation: Chronic diarrhea Attending Physician: Alexa Toure MD History of Present Illness Patient is a 68 yo female with PMH of DM2, HLD, COPD, CAD s/p CABG, chronic heart failure with reduced ejection fraction, paroxysmal atrial fibrillation, PAD s/p femoral popliteal bypass surgery, HTN, B12 deficiency, osteoporosis, compression of lumbar vertebrae, migraine, iron deficiency anemia, tobacco use, and anxiety who presented to the ED with nausea and vomiting. She noted some abdominal discomfort. In the ED her oxygen saturations were noted to be in the 70s. This AM she is saturating at 89% on high flow nasal cannula. She has tested positive for a Coronavirus (not COVID19). GI has been involved due to "chronic diarrhea." Patient notes years of 5-6 episodes of loose stool daily. Imodium stops the diarrhea entirely per her reports. She had a colonoscopy in 2021for iron deficiency anemia, but not for diarrhea. She had C diff in July [address] showed colitis last. During my evaluation with the patient, the nursing staff entered to tell me that her stool returned gene and toxin positive for C diff. No pertinent family history. No overt GI bleeding. Allergies Allergy/AdvReac Type Severity Reaction Status Date / Time benzyl alcohol Allergy Severe Anaphylaxis Verified 08/15/23 05:44 Iodinated Contrast Media Allergy Severe Rash - IVP Verified 08/15/23 05:44 dye lisinopril Allergy Severe chills,sera Verified 08/15/23 05:44 rs prochlorperazine Allergy Severe Anaphylaxis Verified 08/15/23 05:44 saccharin Allergy Severe Anaphylaxis Verified 08/15/23 05:44 simvastatin Allergy Intermediate itching Verified 08/15/23 05:44 furosemide Allergy Mild rash Verified 08/15/23 05:44 promethazine Allergy Mild rash Verified 08/15/23 05:44 Home Medications Medication Instructions Recorded Confirmed Type albuterol sulfate 90 mcg/actuation 2 inh inhalation Q4H PRN Shortness 10/21/24 10/21/24 History aerosol inhaler Of Breath Or Wheezing apixaban 5 mg tablet (Eliquis) 5 mg PO BID 10/21/24 10/21/24 History calcitonin (salmon) 200 1 spray intranasal DAILY 10/21/24 10/21/24 History unit/actuation nasal spray fluticasone propionate 50 1 spray intranasal BID 10/21/24 10/21/24 History mcg/actuation nasal spray,suspension gabapentin 400 mg capsule 400 mg PO TID 10/21/24 10/21/24 History hydralazine 25 mg tablet 25 mg PO TID 10/21/24 10/21/24 History loperamide 2 mg capsule 2 mg PO TID PRN Diarrhea 10/21/24 10/21/24 History lorazepam 1 mg tablet 1 mg PO QID PRN Anxiety 10/21/24 10/21/24 History losartan 100 mg tablet 100 mg PO DAILY 10/21/24 10/21/24 History magnesium oxide 400 mg (241.3 mg 400 mg PO DAILY 10/21/24 10/21/24 History magnesium) tablet metoprolol succinate 50 mg 50 mg PO BID 10/21/24 10/21/24 History tablet,extended release 24 hr omeprazole 40 mg capsule,delayed 40 mg PO DAILY 10/21/24 10/21/24 History release potassium chloride 20 mEq 20 meq PO DAILY 10/21/24 10/21/24 History tablet,extended release(part/cryst) pravastatin 40 mg tablet 40 mg PO HS 10/21/24 10/21/24 History spironolactone 25 mg tablet 25 mg PO DAILY 10/21/24 10/21/24 History trazodone 150 mg tablet 150 mg PO HS 10/21/24 10/21/24 History Patient History Medical History CHF (congestive heart failure) EF 40-45% per 09/2022 ECHO Closed fracture of left proximal humerus Ileus, postoperative Postoperative fever Acute blood loss as cause of postoperative anemia Atrial fibrillation On Eliquis Ischemic cardiomyopathy History of panic attacks worse with large groups History of stomach ulcers 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, twitching and left eye tearing Peripheral neuropathy Migraine Surgical History History of coronary artery bypass graft x4 vessel bypass (~2001/2002) [facility] in [place] x3 vessel bypass (~2009) [facility] Andry follows with Dr Borja ([place]) Family history of reaction to anesthesia DAUGHTER>SLOW TO WAKE UP History of esophagogastroduodenoscopy (EGD) History of colonoscopy H/O abdominal surgery 25-30 YEARS AGO>PART OF STOMACH/COLON/PANCREAS REMOVED D/T STOMACH ULCER History of tooth extraction History of cataract surgery RT/LEFT History of cardiac cath MULTIPLE CATH'S DONE>NO SENTS ([facility]) most recently done in the last five years (1418-1216) done at [facility]. no stents. History of total hysterectomy History of cholecystectomy History of appendectomy Family History Daughter Family hx of colon cancer Family history of diabetes mellitus FHx: thyroid cancer Sister Family history of diabetes mellitus Brother FHx: kidney cancer Family history of diabetes mellitus FHx: pancreatic cancer Social History Smoking Status: Current every day smoker Tobacco Type: Cigarettes Cigarettes Per Day: 1 pack per day since the age of 9; Second Hand Exposure: Yes; Do You Dip or Chew Tobacco: No; Hx Alcohol Use: No Hx Substance Use: No Preferred Language: Maltese Communication Ability: Effective Marketing Forecaster Required: No Beliefs That Will Affect Care: None Current Living Situation: Spouse Current Living Situation Comment: 2 story home, only lives on 1 floor Feels Safe at Home: Yes Assistive Devices: Cane Review of Systems Constitutional: no fever and no chills Respiratory: + dyspnea and + dyspnea on exertion Gastrointestinal: + diarrhea/loose stools; no abdominal pa in and no blood in stools Psychiatric: no problem reported Hematologic / Lymphatic: no unexplained weight loss Physical Exam Constitutional: well developed Respiratory: normal respiratory effort Gastrointestinal (Abdomen): Inspection/Auscultation: abdomen normal to inspection Percussion/Palpation: abdomen soft; abdomen nontender Psychiatric: Orientation: alert and oriented x 3 Results & Data Vital Signs (Past 12 Hours) Vital Signs Temp Pulse Pulse Resp BP BP BP 10/22/24 10:40 36.7 C 51 L 24 107/62 10/22/24 08:00 73 10/22/24 08:00 10/22/24 07:21 80 20 10/22/24 07:12 36.7 C 71 22 127/72 10/22/24 02:32 36.7 C 69 20 108/57 L 10/22/24 01:40 70 18 10/22/24 01:14 10/22/24 01:06 80 10/22/24 00:52 10/22/24 00:52 36.6 C 79 12 129/67 10/22/24 00:23 78 20 108/58 L Pulse Ox O2 Del Method O2 Del Method O2 Flow Rate O2 Flow Rate FiO2 10/22/24 10:40 91 High Flow Nasal Cannula 10/22/24 08:00 10/22/24 08:00 High Flow Nasal Cannula 30 60 10/22/24 07:21 89 L High Flow Nasal Cannula 30 60 10/22/24 07:12 91 High Flow Nasal Cannula 10/22/24 02:32 93 High Flow Nasal Cannula 10/22/24 01:40 89 L High Flow Nasal Cannula 30 80 10/22/24 01:14 Oxymask 15 10/22/24 01:06 10/22/24 00:52 Oxymask 15 10/22/24 00:52 86 L Oxymask 15 10/22/24 00:23 92 Oxymask 5 PG Care Time/CCT Total # of Minutes Spent Total Time Spent with Patient: Total time spent is greater than 50% in coordination of care (as documented) at patient's floor/unit and/or counseling patient: Coding Level of Care Code 27712 INT INP/OBS CARE MIN Diagnoses C. difficile colitis A04.72
--- NOTE | 2024-10-22 13:27 | Nephrology Consultation ---
Date of Consultation October 22, 2024 Assessment & Plan (1) Acid-base disorder, mixed: she has complicated mixed acid-base disorder with multiple layers. at baseline she does have chronic diarrhea and most of her blood work shows chronically elevated serum chloride with slightly low bicarb but normal anion gap--- this NAGMA picture is classic for chronic diarrhea. however at this time she is also having hypoxia with respiratory failure requiring high flow oxygen--- chest x-ray is somewhat suggestive of congestive heart failure for which she is high risk as she already has a low ejection fraction of 40% and on top of that she now has pulmonary hypertension. So the arterial blood gas showing and pH of 7.23 is probably related with the combination of chronic diarrhea and now some degree of respiratory acidosis. she also now has C diff colitis with worsened diarrhea as well as nausea vomiting. given the x-ray finding hypoxia her ejection fraction and high flow oxygen need---- we should stop the IV fluid. there is no need to give bicarb drip which will also give IV fluid which can make the situation worse from CHF standpoint. most likely her pH if we major again in the arterial blood gas will already be better. I believe at this point it is more critical to treat her hypoxia as well as C diff colitis. kidney function is completely normal and she can have Lasix if needed from breathing standpoint arterial blood gas can be done tomorrow again if felt needed. if not venous blood gas can be done with a.m. labs. (2) Hypoxia: as per Pulmonary. She does have underlying COPD as well as pulmonary hypertension and most likely had some degree of hypoxia which was under appreciated previously. Plus she now has a coronavirus infection. Given all this I would like to avoid giving further IV fluid. If needed Lasix can be given. At this point her kidney function is completely normal (3) Pulmonary hypertension: (4) C. difficile colitis: she has chronic diarrhea but for the last few days she was having some nausea v omiting also. And now she also has C diff positive stool. Reviewed GI note and also noted that patient has had history of C diff colitis in the past Plan total time spent 62 minutes History of Present Illness Reason for Consultation: acid Base disorder Attending Physician: Alexa Toure MD History of Present Illness 68-year-old female who presented to the hospital because of nausea vomiting, shortness of breath and hypoxia. She had arterial blood gas done which showed a pH of 7.23. Patient has chronic diarrhea with 5-7 times every day for many many years and as a result has non-anion gap metabolic acidosis at baseline. blood work yesterday showed an anion gap of 15 but this morning it is already down to 4. She received normal saline overnight so far workup done has revealed pulmonary hypertension and previously under appreciated COPD /hypoxia problem. It is worth noting patient does have history of CHF with an EF of 40%. At this time kidney function is completely normal. she is requiring oxygen. She was also found to be positive for coronavirus infection. Pulmonary as well as GI has seen the patient already. She also turned out to be positive for C diff and has been started on oral vancomycin. chest x-ray has been reported as mild CHF with pleural effusion. review of systems is positive for some shortness of breath weakness chronic diarrhea was slight worsening as well as new onset nausea and vomiting. unless stated otherwise 12 systems reviewed and negative. physical examination elderly white female who is in some respiratory distress she is on high flow oxygen. awake alert oriented and able to give detailed account of her medical history mucous membrane is moist neck is supple no JVD chest bilateral diminished breath sound occasional rhonchi CVS S1 and S2 regular abdomen is soft nontender extremities without edema Allergies Allergy/AdvReac Type Severity Reaction Status Date / Time benzyl alcohol Allergy Severe Anaphylaxis Verified 08/15/23 05:44 Iodinated Contrast Media Allergy Severe Rash - IVP Verified 08/15/23 05:44 dye lisinopril Allergy Severe chills,sera Verified 08/15/23 05:44 rs prochlorperazine Allergy Severe Anaphylaxis Verified 08/15/23 05:44 saccharin Allergy Severe Anaphylaxis Verified 08/15/23 05:44 simvastatin Allergy Intermediate itching Verified 08/15/23 05:44 furosemide Allergy Mild rash Verified 08/15/23 05:44 promethazine Allergy Mild rash Verified 08/15/23 05:44 Home Medications Medication Instructions Recorded Confirmed Type albuterol sulfate 90 mcg/actuation 2 inh inhalation Q4H PRN Shortness 10/21/24 10/21/24 History aerosol inhaler Of Breath Or Wheezing apixaban 5 mg tablet (Eliquis) 5 mg PO BID 10/21/24 10/21/24 History calcitonin (salmon) 200 1 spray intranasal DAILY 10/21/24 10/21/24 History unit/actuation nasal spray fluticasone propionate 50 1 spray intranasal BID 10/21/24 10/21/24 History mcg/actuation nasal spray,suspension gabapentin 400 mg capsule 400 mg PO TID 10/21/24 10/21/24 History hydralazine 25 mg tablet 25 mg PO TID 10/21/24 10/21/24 History loperamide 2 mg capsule 2 mg PO TID PRN Diarrhea 10/21/24 10/21/24 History lorazepam 1 mg tablet 1 mg PO QID PRN Anxiety 10/21/24 10/21/24 History losartan 100 mg tablet 100 mg PO DAILY 10/21/24 10/21/24 History magnesium oxide 400 mg (241.3 mg 400 mg PO DAILY 10/21/24 10/21/24 History magnesium) tablet metoprolol succinate 50 mg 50 mg PO BID 10/21/24 10/21/24 History tablet,extended release 24 hr omeprazole 40 mg capsule,delayed 40 mg PO DAILY 10/21/24 10/21/24 History release potassium chloride 20 mEq 20 meq PO DAILY 10/21/24 10/21/24 History tablet,extended release(part/cryst) pravastatin 40 mg tablet 40 mg PO HS 10/21/24 10/21/24 History spironolactone 25 mg tablet 25 mg PO DAILY 10/21/24 10/21/24 History trazodone 150 mg tablet 150 mg PO HS 10/21/24 10/21/24 History Patient History Medical History CHF (congestive heart failure) EF 40-45% per 09/2022 ECHO Closed fracture of left proximal humerus Ileus, postoperative Postoperative fever Acute blood loss as cause of postoperative anemia Atrial fibrillation On Eliquis Ischemic cardiomyopathy History of panic attacks worse with large groups History of stomach ulcers 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 x3 vessel bypass (~2009) JEMIMA Wilde follows with Dr Borja ([place]) Family history of reaction to anesthesia DAUGHTER>SLOW TO WAKE UP History of esophagogastroduodenoscopy (EGD) History of colonoscopy H/O abdominal surgery 25-30 YEARS AGO>PART OF STOMACH/COLON/PANCREAS REMOVED D/T STOMACH ULCER History of tooth extraction History of cataract surgery RT/LEFT History of cardiac cath MULTIPLE CATH'S DONE>NO SENTS ([facility]) most recently done in the last five years (9717-0207) done at [facility]. no stents. History of total hysterectomy History of cholecystectomy History of appendectomy Family History Daughter Family hx of colon cancer Family history of diabetes mellitus FHx: thyroid cancer Sister Family history of diabetes mellitus Brother FHx: kidney cancer Family history of diabetes mellitus FHx: pancreatic cancer Social History Smoking Status: Current every day smoker Tobacco Type: Cigarettes Cigarettes Per Day: 1 pack per day since the age of 9; Second Hand Exposure: Yes; Do You Dip or Chew Tobacco: No; Hx Alcohol Use: No Hx Substance Use: No Preferred Language: Maltese Communication Ability: Effective Artist Consultant Required: No Beliefs That Will Affect Care: None Current Living Situation: Spouse Current Living Situation Comment: 2 story home, only lives on 1 floor Feels Safe at Home: Yes Assistive Devices: Cane Results & Data Vital Signs (Past 12 Hours) Vital Signs Temp Pulse Pulse Resp BP BP Pulse Ox 10/22/24 10:40 36.7 C 51 L 24 107/62 91 10/22/24 08:00 73 10/22/24 08:00 10/22/24 07:21 80 20 89 L 10/22/24 07:12 36.7 C 71 22 127/72 91 10/22/24 02:32 36.7 C 69 20 108/57 L 93 10/22/24 01:40 70 18 89 L O2 Del Method O2 Flow Rate FiO2 10/22/24 10:40 High Flow Nasal Cannula 10/22/24 08:00 10/22/24 08:00 High Flow Nasal Cannula 30 60 10/22/24 07:21 High Flow Nasal Cannula 30 60 10/22/24 07:12 High Flow Nasal Cannula 10/22/24 02:32 High Flow Nasal Cannula 02/05/25 01:40 High Flow Nasal Cannula 30 80 Laboratory Results reviewed CBC renal panel arterial blood gas chest x-ray CT angiogram
--- NOTE | 2024-10-22 13:33 | Hospitalist Progress Note ---
Date of Service October 22, 2024 Assessment & Plan (1) Hypoxia: Plan Pt is a 68-year-old female with past medical history significant for type 2 diabetes, dyslipidemia, COPD, CAD status post CABG, chronic heart failure with reduced ejection fraction, paroxysmal atrial fibrillation, peripheral artery disease status post femoral-popliteal bypass surgery, hypertension, B12 deficiency, osteoporosis, compression of lumbar vertebra, backache, migraine, iron deficiency anemia, tobacco use disorder, anxiety disorder who presented due to intractable nausea and vomiting at home. Found to be significantly hypoxic in the ED with oxygen saturation in the 70s, requiring oxymask 5L. Acute hypoxic respiratory failure Coronavirus Infection COPD Exacerbation Pulmonary HTN Pleural effusion Presented with N/V, hypoxic in the 70s in the ED eventually requiring hi james on admission respiratory biofire noting coronavirus infection VBG on admission noting pH of 7.25, pCO2 48, HCO3 of 21 chest xray noting a small L sided pleural effusion CTA chest noting no PE but does note pulmonary HTN procalcitonin negative patient seems comfortable Continue oxygen supplementation No obvious wheezing Nebs as needed Empiric Unasyn and azithromycin in setting of COPD On dexamethasone supportive care for viral infection pulmonary consulted, appreciate recs -continue abx -continue steroids (Dex) -diuresis -echo for further pulm htn workup Continue to monitor Acute on Chronic CHF Pulmonary HTN Pt with Hx of HFrEF Concern for an acute exacerbation given significant oxygen requirement, pleural effusions, elevated BNP Echo with EF 40-45%, inferior wall akinesis, mild to moderate RV dilation, increased RV pressure Trop normal EKG sinus with PACs and bigeiney Pt with allergy to Lasix, started on Bumex 2mg BID Continue home spironolactone Cardiology consult, appreciate further recs Pulmonology on board for pulm HTN, appreciate recs Daily Is and Os and weights Continue to monitor Nausea and vomiting Chronic Diarrhea C diff colitis presenting symptoms of N/V Chronic diarrhea at home Currently positive for c diff gene and toxin Continue with po vancomycin advance diet as tolerated CT abd pelvis ordered, pt with allergy to contrast. last reviewed, noted colitis changes at that time in Nov GI consulted, appreciate recs Hold home loperamide Improving Metabolic acidosis possibly from chronic diarrhea half amp of sod bicarb on admission Nephrology consulted, appreciate recs Chronic Anemia Iron Deficiency Anemia Folate deficiency Continue home folate supplement History of CAD status post CABG Continue Eliquis, metoprolol succinate and statin Hypertension Continue metoprolol succinate, Holding losartan and hydralazine Type 2 diabetes not on meds Will monitor Chronic back pain On gabapentin Hyperlipidemia On statin GERD Omeprazole History of hypokalemia and hypomagnesia Continue home supplements We will monitor Diet: HH/DMII DVT prophylaxis: On Eliquis Dispo: PT/OT for further recs Admission and Anticipated Discharge Date Admission Date: October 21, 2024 Subjective Pt was seen sitting in a chair near her bed Adamant that she is not SOB despite being on hi james oxygen at the time AAO x3 Notes the nausea and vomiting had subsided, asking for diet to be advanced Review of Systems Review of Systems: All systems reviewed & are unremarkable except as noted in Subjective Physical Exam Physical Exam: General: Alert, oriented. No acute distress Psych: Appropriate mood and affect Neuro: No gross deficits HEENT: NC/AT CV: RRR Resp: Breath sounds with scattered wheezes bilaterally, no increased effort of breathing but hi james oxygen on Abdomen: Soft, nontender Extremities: no edema currently Results & Data Results & Data Vital Signs (Past 12 Hours) Vital Signs Temp Pulse Pulse Resp BP BP Pulse Ox 10/22/24 10:40 36.7 C 51 L 24 107/62 91 10/22/24 08:00 73 10/22/24 08:00 10/22/24 07:21 80 20 89 L 10/22/24 07:12 36.7 C 71 22 127/72 91 10/22/24 02:32 36.7 C 69 20 108/57 L 93 10/22/24 01:40 70 18 89 L O2 Del Method O2 Flow Rate FiO2 10/22/24 10:40 High Flow Nasal Cannula 10/22/24 08:00 10/22/24 08:00 High Flow Nasal Cannula 30 60 10/22/24 07:21 High Flow Nasal Cannula 30 60 10/22/24 07:12 High Flow Nasal Cannula 10/22/24 02:32 High Flow Nasal Cannula 10/22/24 01:40 High Flow Nasal Cannula 30 80 Diagnostic Findings Chest X-Ray 10/21/24 19:40 INDICATION: Difficulty breathing. TECHNIQUE: Frontal radiograph of the chest. COMPARISON: Radiograph from 08/30/2024. FINDINGS: Cardiomegaly. Mild pulmonary vascular congestion. Small left pleural effusion. Subsegmental atelectasis in the left lung base. No infiltrate or pneumothorax. No acute osseous abnormality evident. IMPRESSION: Mild pulmonary vascular congestion. Small left pleural effusion. Electronically signed by Mark Alvarez 10-21-2024 7:55 PM Chest CTA 10/22/24 00:51 EXAM: CT angio chest PE protocol CLINICAL HISTORY: PE TECHNIQUE: Contiguous axial images were obtained from the neck base through the upper abdomen following intravenous administration of iodinated contrast material. Angiographic images were processed, 3D MIP images were acquired for interpretation. If IV contrast material had not been administered, the likelihood of detecting abnormalities relevant to the patient's condition would have been substantially decreased. Coronal and sagittal 3-D MIPs were likewise performed and indicated to increase the sensitivity of detectin diffuse clinically relevant pathology. CT scan was performed according to ALARA (as low as reasonably achievable). COMPARISON: none FINDINGS: Adequate contrast bolus without evidence of pulmonary embolism. The central airways are patent. Subsegmental atelectasis seen in posterobasal segment of right lower lobe, medial segment of right middle lobe and lingula. No pleural effusion. Cardiomegaly is seen. Enlarged pulmonary trunk and right and left pulmonary arteries. The aorta, and pulmonary arteries are of normal size and configuration. There are no appreciable coronary artery and aortic atherosclerotic calcifications. No pericardial effusion is identified. The thyroid is unremarkable. No mediastinal, hilar, or axillary lymphadenopathy is noted. No suspicious lytic or sclerotic osseous lesions are identified. IMPRESSION: 1. No evidence of pulmonary embolism. 2. Enlarged pulmonary trunk and right and left pulmonary arteries- pulmonary arterial hypertension. 3. Subsegmental atelectasis seen in posterobasal segment of right lower lobe, medial segment of right middle lobe and lingula. Electronically signed by Reggie Husain 10-22-2024 03:19 AM
--- NOTE | 2024-10-22 15:19 | XCELERA ---
[id number] \\[id number]
[2024-10-22] MEDS: ALBUT/IPRATROP 3MG/0.5MG NEB 3 ML VIAL NEB PRN (15:55)
[2024-10-22] MEDS: CHERRY SYRUP 5 ML UDP PO SCH (18:00)
[2024-10-22] MEDS: VANCOMYCIN HCL 125 MG/2.5ML SOLN PO SCH (18:00)
[2024-10-22] MEDS: FORMOTEROL 20 MCG/2 ML VIAL INH SCH (18:11)
[2024-10-22] MEDS: BUDESONIDE 0.5 MG/2 ML VIAL (PULMICORT) INH SCH (18:11)
[2024-10-22] MEDS: PRAVASTATIN SOD 40 MG TAB PO SCH (19:53)
[2024-10-22] MEDS: traZODone HCL 50 MG TAB PO SCH (20:06)
[2024-10-22] MEDS: ACETAMINOPHEN 325 MG TAB PO PRN (20:26)
[2024-10-23 06:32] LABS: Base Excess VBG -4.9 mEq/L; HCO3 VBG 22 mmol/L; Oxygen Saturation VBG 69.8 %; PCO2 VBG 50 mmHg (38-50); PO2 VBG 42 mmHg; pH VBG 7.26 (7.36-7.41)
[2024-10-23 06:40] LABS: Basophils # (auto) 0.01 K/uL (0.00-0.20); Basophils % (auto) 0.1 %; Eosinophils # (auto) 0.01 K/uL (0.00-0.50); Eosinophils % (auto) 0.1 %; Hematocrit (blood only) 35.2 % (37.0-47.0); Hemoglobin 11.5 g/dl (12.0-16.0); Immature Granulocytes # (auto) 0.09 K/uL (0.01-0.20); Immature Granulocytes % (auto) 0.6 %; Lymphocytes # (auto) 1.12 K/uL (1.20-3.40); Lymphocytes % (auto) 7.8 %; Mean Corpuscular Hemoglobin 33.2 pg (25.0-34.0); Mean Corpuscular Hgb Conc 32.7 g/dL (32.0-36.0); Mean Corpuscular Volume 101.7 fL (80.0-100.0); Mean Platelet Volume 11.3 fL (9.4-12.4); Monocytes # (auto) 0.97 K/uL (0.11-0.59); Monocytes % (auto) 6.8 %; Neutrophils # (auto) 12.15 K/uL (1.40-6.50); Neutrophils % (auto) 84.6 %; Platelet Count 155 K/uL (130-400); RDW Standard Deviation 48.7 fL (36.4-46.3); Red Blood Count 3.46 M/uL (4.20-5.40); White Blood Count 14.35 K/ul (4.8-10.8)
[2024-10-23 07:04] LABS: Albumin Globulin Ratio 1.2 (0.9-2); Albumin Level 3.4 gm/dl (3.4-5.0); BUN Creatinine Ratio 22.4 (10-20); Bilirubin,Total 0.2 mg/dl (0.2-1.0); Calcium 9.4 mg/dl (8.6-10.3); Creatinine Clr Calc Pharmacy 65.6 ml/min; Globulin 2.8 gm/dl (2.5-4.0); Magnesium 1.9 mg/dl (1.7-2.4); Phosphorus 2.9 mg/dl (2.5-4.9); Potassium 4.4 mmol/L (3.5-5.1); Total Protein 6.2 gm/dl (6.0-8.3)
[2024-10-23] MEDS: AZITHROMYCIN 250 MG TAB PO SCH (08:49)
[2024-10-23] MEDS: SPIRONOLACTONE 25 MG TAB PO SCH (08:51)
[2024-10-23] MEDS: BUMETANIDE 2 MG in SYRINGE 0 ML IV SCH (08:52)
--- NOTE | 2024-10-23 09:03 | CT Scan Report ---
ABDOMEN AND PELVIS CT WITHOUT CONTRAST CT DOSE: 638.56 mGy.cm HISTORY: intractable n/v, c diff infection TECHNIQUE: Multiaxial CT images of the abdomen and pelvis were performed without contrast. A dose lo wering technique was utilized adhering to the principles of ALARA. COMPARISON STUDY: 08/01/2024 FINDINGS: ABDOMEN: Gallbladder is surgically absent. Liver, spleen, pancreas, and adrenal glands have an unrema rkable non-IV contrasted appearance. Kidneys show no hydronephrosis or calculi. There are scattered a therosclerotic calcifications. No abdominal aortic aneurysm. Pelvis: Femorofemoral bypass graft again seen. Uterus is absent. No adnexal mass. Urinary bladder is mildly distended. There is moderate retained stool. There is mild sigmoid diverticulosis. No acute di verticulitis. Stable left upper quadrant surgical anastomosis. There is mild wall thickening at the r ight colon. No other bowel inflammation or obstruction seen. No free fluid, free air, or abscess. No enlarged adenopathy. Osseous structures: There is osteopenia. There is stable mild height loss at the L3 vertebral body. N o acute osseous findings. IMPRESSION: Mild wall thickening of the right colon could represent mild colitis. No other acute find ings seen. Otherwise as described. ACT 112: Negative or not required by law. The above report was generated using voice recognition software. It may contain grammatical, syntax o r spelling errors. Electronically signed by: Ernesto Vincent M.D. 10/23/2024 9:01 AM
--- NOTE | 2024-10-23 11:33 | Gastroenterology Progress Note ---
Date of Service October 23, 2024 Assessment & Plan (1) C. difficile colitis: Plan: -Continue with Vancomycin long-taper -Follow-up in outpatient clinic to reassess complaints of chronic diarrhea Admission and Anticipated Discharge Date Admission Date: October 21, 2024 Supervising Physician Co-Signing Physician Notes Decreased diarrhea vancomycin as long as she is on broad-spectrum antibiotics. 14 days minimum. Follow-up GI Sabino Douglas for evaluation management of chronic diarrhea Subjective Patient is a 68 yo female with C diff. She notes since starting the Vancomycin on 10/22/24 she has had less diarrhea. She notes that she has had only 1 episode o f loose stool today thus far. No bleeding. No abdominal pain. Breathing seems better today. Review of Systems Gastrointestinal: + diarrhea/loose stools (improving) Physical Exam Constitutional: well developed Gastrointestinal (Abdomen): normal bowel sounds, soft, nontender, no hepatosplenomegaly Results & Data Results & Data Vital Signs (Past 12 Hours) Vital Signs Temp Pulse Pulse Resp BP BP Pulse Ox 10/23/24 08:00 10/23/24 07:22 36.3 C L 69 16 147/74 H 95 10/23/24 06:35 74 17 95 10/23/24 02:49 36.9 C 81 20 125/78 95 10/23/24 01:00 10/22/24 23:41 59 L Pulse Ox O2 Del Method O2 Del Method O2 Flow Rate O2 Flow Rate 10/23/24 08:00 Oxymask 6 10/23/24 07:22 Oxymask 6 10/23/24 06:35 Oxymask 6 10/23/24 02:49 Oxymask 4 10/23/24 01:00 98 Nasal Cannula 6 10/22/24 23:41 PG Care Time/CCT Total # of Minutes Spent Total Time Spent with Patient: Total time spent is greater than 50% in coordination of care (as documented) at patient's floor/unit and/or counseling patient: Coding Level of Care Code 50343 SUB INP/OBS CARE MIN Diagnoses C. difficile colitis A04.72
--- NOTE | 2024-10-23 12:05 | Cardiology Consultation ---
Date of Consultation October 23, 2024 Assessment & Plan (1) C. difficile colitis: (2) Chronic HFrEF (heart failure with reduced ejection fraction): (3) COPD with emphysema: (4) CAD (coronary artery disease): (5) Hypertension: (6) PAD (peripheral artery disease): Plan Very complex 68-year-old female with documented cardiac and vascular disease as outlined in HPI including underlying ischemic cardiomyopathy with mildly reduced ejection fraction. Presents this admission noting several days increasing diarrhea and nausea and vomiting possible acute C. difficile colitis superimposed on chronic C. difficile diarrhea. On presentation found to be hypoxic with relative hyp otension. COVID-positive. Has received 3 L volume resuscitation since admission. Multiple antihypertensives on hold. Blood pressures improved, hypoxia relatively improved but still with O2 demands. Has rhonchorous wheezy cough. Echocardiogram not significantly changed BNP minimally elevated but nondiagnostic Impression: Acute hypoxic respiratory failure Nausea vomiting and worsening diarrhea with relative hypotension on presentation Overall findings not suggestive of significant volume overload on exam. Chest x-ray improved from last examination in August Current antihypertensives on hold. Transient mild bradycardia overnight. Recommendations: Would not diurese further after today and reassess volume status in a.m. Continue treat underlying pulmonary issues including recent COVID infection. Suspect component of chronic hypoxia Will reduce metoprolol succinate to 50 mg a.m. 25 mg p.m. Gradually reintroduced antihypertensive regimens as necessary though suspect with diuresis we will continue to hold. No cardiac symptoms current Jeffery ALMODOVAR I spent a total of 60 minutes on the date of service in preparation, delivery, and documentation of the care provided to this patient, excluding any time spent in the performance of separately billed services. History of Present Illness Reason for Consultation: Transient bradycardia, assess volume status Requesting Physician: Jessica munson Attending Physician: Alexa Toure MD History of Present Illness Patient is a 68-year-old female with complex history with cardiac concerns per prior review 08/2024. Patient follows with , Dr. Osvaldo ARCINIEGA, ischemic cardiomyopathy, HFrEF, NYHA Class III multifactorial Status post CABG in 2003 in [place], receiving PONCE to the LAD, SVG to the RCA, SVG to the first diagonal branch, SVG to left circumflex per documentation Redo CABG, x 2 on January 15, 2012, receiving a vein graft to the diagonal branch and a vein graft to the left circumflex branch Status post CABG x 3 -PONCE to LAD, SVG to diagonal branch, SVG to obtuse marginal. January 2017 diagnostic cardiac catheterization with LVEF 30%. Normal left main. 90% LAD. 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 Collaterals from the LAD to RCA. Patent PONCE to LAD. Patent SVG to diagonal. Patent SVG to OM. CCS Class III angina Past poor tolerance to Jardiance Frequent atrial ectopy and paroxysmal atrial fibrillation Peripheral arterial disease Mild bilateral internal carotid artery disease Status post August 15, 2023 fem fem and bilateral femoropopliteal bypasses Hypertension Dyslipidemia Type 2 diabetes mellitus COPD with continued tobacco abuse Recent records reviewed. Currently hospitalized with acute C. difficile colitis with severe diarrhea. Hospitalized in August 2024 with acute encephalopathy, acute renal insufficiency with possible polypharmacy culprit. Patient presents now noting increasing frequency of diarrhea, Nausea and vomiti ng unable to maintain volume status. She presented for evaluation due to concerns regarding dehydration by her own description. She denied chest pains, dizziness, lightheadedness. No edema. No fevers or chills. On presentation patient found to be COVID-positive as well as hypoxic. Relative hypotension in comparison to prior. Antihypertensive medications held, losartan, hydralazine, isosorbide She has received initially fluid resuscitation. Referred now for further assessment of medications as well as volume status. Transient bradycardia in the high 40s last evening while sleeping deeply. No symptoms Has had persistent nonproductive cough. Still smoking at home Denies chest pains, dizziness or lightheadedness Does admit to very variable blood pressures labile elevation at home Allergies Allergy/AdvReac Type Severity Reaction Status Date / Time benzyl alcohol Allergy Severe Anaphylaxis Verified 08/15/23 05:44 Iodinated Contrast Media Allergy Severe Rash - IVP Verified 08/15/23 05:44 dye lisinopril Allergy Severe chills,sera Verified 08/15/23 05:44 rs prochlorperazine Allergy Severe Anaphylaxis Verified 08/15/23 05:44 saccharin Allergy Severe Anaphylaxis Verified 08/15/23 05:44 simvastatin Allergy Intermediate itching Verified 08/15/23 05:44 furosemide Allergy Mild rash Verified 08/15/23 05:44 promethazine Allergy Mild rash Verified 08/15/23 05:44 Home Medications Medication Instructions Recorded Confirmed Type albuterol sulfate 90 mcg/actuation 2 inh inhalation Q4H PRN Shortness 10/21/24 10/21/24 History aerosol inhaler Of Breath Or Wheezing apixaban 5 mg tablet (Eliquis) 5 mg PO BID 10/21/24 10/21/24 History calcitonin (salmon) 200 1 spray intranasal DAILY 10/21/24 10/21/24 History unit/actuation nasal spray fluticasone propionate 50 1 spray intranasal BID 10/21/24 10/21/24 History mcg/actuation nasal spray,suspension gabapentin 400 mg capsule 400 mg PO TID 10/21/24 10/21/24 History hydralazine 25 mg tablet 25 mg PO TID 10/21/24 10/21/24 History loperamide 2 mg capsule 2 mg PO TID PRN Diarrhea 10/21/24 10/21/24 History lorazepam 1 mg tablet 1 mg PO QID PRN Anxiety 10/21/24 10/21/24 History losartan 100 mg tablet 100 mg PO DAILY 10/21/24 10/21/24 History magnesium oxide 400 mg (241.3 mg 400 mg PO DAILY 10/21/24 10/21/24 History magnesium) tablet metoprolol succinate 50 mg 50 mg PO BID 10/21/24 10/21/24 History tablet,extended release 24 hr omeprazole 40 mg capsule,delayed 40 mg PO DAILY 10/21/24 10/21/24 History release potassium chloride 20 mEq 20 meq PO DAILY 10/21/24 10/21/24 History tablet,extended release(part/cryst) pravastatin 40 mg tablet 40 mg PO HS 10/21/24 10/21/24 History spironolactone 25 mg tablet 25 mg PO DAILY 10/21/24 10/21/24 History trazodone 150 mg tablet 150 mg PO HS 10/21/24 10/21/24 History Patient History Medical History CHF (congestive heart failure) EF 40-45% per 09/2022 ECHO Closed fracture of left proximal humerus Ileus, postoperative Postoperative fever Acute blood loss as cause of postoperative anemia Atrial fibrillation On Eliquis Ischemic cardiomyopathy History of panic attacks worse with large groups History of stomach ulcers 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, twitching and left eye tearing Peripheral neuropathy Migraine Surgical History History of coronary artery bypass graft x4 vessel bypass (~2001/2002) [facility] in [place] x3 vessel bypass (~2009) JEMIMA Wilde follows with Dr Borja ([place]) Family history of reaction to anesthesia DAUGHTER>SLOW TO WAKE UP History of esophagogastroduodenoscopy (EGD) History of colonoscopy H/O abdominal surgery 25-30 YEARS AGO>PART OF STOMACH/COLON/PANCREAS REMOVED D/T STOMACH ULCER History of tooth extraction History of cataract surgery RT/LEFT History of cardiac cath MULTIPLE CATH'S DONE>NO SENTS ([facility]) most recently done in the last five years ([id number]) done at [facility]. no stents. History of total hysterectomy History of cholecystectomy History of appendectomy Family History Daughter Family hx of colon cancer Family history of diabetes mellitus FHx: thyroid cancer Sister Family history of diabetes mellitus Brother FHx: kidney cancer Family history of diabetes mellitus FHx: pancreatic cancer Social History Smoking Status: Current every day smoker Tobacco Type: Cigarettes Cigarettes Per Day: 1 pack per day since the age of 9; Second Hand Exposure: Yes; Do You Dip or Chew Tobacco: No; Hx Alcohol Use: No Hx Substance Use: No Preferred Language: Pashto Communication Ability: Effective Expansion Envelope Maker Hand Required: No Beliefs That Will Affect Care: None Current Living Situation: Spouse Current Living Situation Comment: 2 story home, only lives on 1 floor Feels Safe at Home: Yes Assistive Devices: Cane Review of Systems Review of Systems: All systems reviewed & are unremarkable except as noted in HPI & below Physical Exam Constitutional: no acute distress Chronically ill-appearing Eyes: PERRL, conjunctivae normal, anicteric sclerae Neck: trachea midline, no thyromegaly Respiratory: Coarse rhonchi and wheezes with cough greatest right base, no rales Cardiovascular: Rate/Rhythm: regular rate and regular rhythm Heart Sounds: normal S1 and normal S2 Vessels: normal carotid upstroke and dorsalis pedis pulses present; no JVD Extremities: no edema Gastrointestinal (Abdomen): Percussion/Palpation: abdomen soft; abdomen nontender Musculoskeletal: no cyanosis or clubbing, extremities motor strength 5/5 Results & Data Vital Signs (Past 12 Hours) Vital Signs Temp Pulse Resp BP BP Pulse Ox Pulse Ox 10/23/24 11:46 36.7 C 75 19 139/62 97 10/23/24 08:00 10/23/24 07:22 36.3 C L 69 16 147/74 H 95 10/23/24 06:35 74 17 95 10/23/24 02:49 36.9 C 81 20 125/78 95 10/23/24 01:00 98 O2 Del Method O2 Del Method O2 Flow Rate O2 Flow Rate 10/23/24 11:46 Nasal Cannula 4 10/23/24 08:00 Oxymask 6 10/23/24 07:22 Oxymask 6 10/23/24 06:35 Oxymask 6 10/23/24 02:49 Oxymask 4 10/23/24 01:00 Nasal Cannula 6 Diagnostic Findings Echocardiogram: Unchanged from 08/25/2024 Left ventricle is mildly dilated with mild to moderate reduction in LV systolic function EF 40-45%. There is inferior wall akinesis. The right ventricle is mild to moderately dilated. There is with mild to moderate mitral insufficiency and moderate to severe tricuspid insufficiency with elevated right ventricular systolic pressures Chest x-ray 10/21/2024 by my review Minimal increase in vasculature with streaky infiltrate right base. Trivial left pleural effusion Substantially improved from last chest x-ray August 2024 (3) COPD with emphysema Emphysema type: unspecified Qualified Code(s): J43.9 - Emphysema, unspecified (4) CAD (coronary artery disease) Associated angina: without angina Coronary Disease-Associated Artery/Lesion type: [place] artery [place] vs. transplanted heart: [place] heart Qualified Code(s): I25.10 - Atherosclerotic heart disease of [place] coronary artery without angina pectoris (5) Hypertension Hypertension type: primary hypertension Qualified Code(s): I10 - Essential (primary) hypertension
--- NOTE | 2024-10-23 12:38 | Hospitalist Progress Note ---
Date of Service October 23, 2024 Assessment & Plan (1) Hypoxia: Plan Pt is a 68-year-old female with past medical history significant for type 2 diabetes, dyslipidemia, COPD, CAD status post CABG, chronic heart failure with reduced ejection fraction, paroxysmal atrial fibrillation, peripheral artery disease status post femoral-popliteal bypass surgery, hypertension, B12 deficiency, osteoporosis, compression of lumbar vertebra, backache, migraine, iron deficiency anemia, tobacco use disorder, anxiety disorder who presented due to intractable nausea and vomiting at home. Found to be significantly hypoxic in the ED with oxygen saturation in the 70s, requiring oxymask 5L. Acute hypoxic respiratory failure Coronavirus Infection COPD Exacerbation Pulmonary HTN Pleural effusion Presented with N/V, hypoxic in the 70s in the ED eventually requiring hi james on admission respiratory biofire noting coronavirus infection VBG on admission noting pH of 7.25, pCO2 48, HCO3 of 21 chest xray noting a small L sided pleural effusion CTA chest noting no PE but does note pulmonary HTN procalcitonin negative patient seems comfortable Continue oxygen supplementation No obvious wheezing Nebs as needed Empiric Unasyn and azithromycin in setting of COPD On dexamethasone supportive care for viral infection pulmonary consulted, appreciate recs -continue abx -continue steroids (Dex) -diuresis -echo for further pulm htn workup Continue to monitor Acute on Chronic CHF Pulmonary HTN Pt with Hx of HFrEF Concern for an acute exacerbation given significant oxygen requirement, pleural effusions, elevated BNP Echo with EF 40-45%, inferior wall akinesis, mild to moderate RV dilation, increased RV pressure Trop normal EKG sinus with PACs and bigeminy Pt with allergy to Lasix, started on Bumex 2mg BID Continue home spironolactone Cardiology consult, appreciate further recs Pulmonology on board for pulm HTN, appreciate recs Daily Is and Os and weights Continue to monitor Nausea and vomiting Chronic Diarrhea C diff colitis presenting symptoms of N/V Chronic diarrhea at home Currently positive for c diff gene and toxin Continue with po vancomycin advance diet as tolerated CT abd pelvis ordered, pt with allergy to contrast. last reviewed, noted colitis changes at that time in Nov GI consulted, appreciate recs Hold home loperamide Improving Transient Bradycardia Pt with episodes overnight on 10/22 EKG On BB, adjust dose Cardiology on board as above Continue to monitor on telemetry Metabolic acidosis possibly from chronic diarrhea half amp of sod bicarb on admission Nephrology consulted, appreciate recs Chronic Anemia Iron Deficiency Anemia Folate deficiency Continue home folate supplement History of CAD status post CABG Continue Eliquis, metoprolol succinate and statin Hypertension Continue metoprolol succinate, Holding losartan and hydralazine Type 2 diabetes not on meds Will monitor Chronic back pain On gabapentin Hyperlipidemia On statin GERD Omeprazole History of hypokalemia and hypomagnesia Continue home supplements We will monitor Diet: HH/DMII DVT prophylaxis: On Eliquis Dispo: PT/OT for further recs Admission and Anticipated Discharge Date Admission Date: October 21, 2024 Subjective pt was seen laying in bed, resting comfortably Oxygen requirement had decreased Asking about having a regular diet, not low fiber N/V improved Review of Systems Review of Systems: All systems reviewed & are unremarkable except as noted in Subjective Physical Exam Physical Exam: General: Alert, oriented. No acute distress Psych: Appropriate mood and affect Neuro: No gross deficits HEENT: NC/AT CV: RRR Resp: Breath sounds with scattered wheezes bilaterally, no increased effort of breathing but hi james oxygen on Abdomen: Soft, nontender Extremities: no edema currently Results & Data Results & Data Vital Signs (Past 12 Hours) Vital Signs Temp Pulse Resp BP BP Pulse Ox Pulse Ox 10/23/24 11:46 36.7 C 75 19 139/62 97 10/23/24 08:00 10/23/24 07:22 36.3 C L 69 16 147/74 H 95 10/23/24 06:35 74 17 95 10/23/24 02:49 36.9 C 81 20 125/78 95 10/23/24 01:00 98 O2 Del Method O2 Del Method O2 Flow Rate O2 Flow Rate 10/23/24 11:46 Nasal Cannula 4 10/23/24 08:00 Oxymask 6 10/23/24 07:22 Oxymask 6 10/23/24 06:35 Oxymask 6 10/23/24 02:49 Oxymask 4 10/23/24 01:00 Nasal Cannula 6
--- NOTE | 2024-10-23 13:36 | Pulmonology Progress Note ---
Date of Service October 23, 2024 Assessment & Plan (1) Hypoxia: Plan: Hypoxia significantly improving with resolving atelectasis. Patient now on low- flow oxygen. Continue to wean as able. Recommend to step prior to discharge home. (2) COPD with emphysema: Plan: COPD exacerbation in the setting of coronavirus. Recommend 5 days total of dexamethasone and then discontinuation once complete. Agree with LABA/LAMA/ICS regimen. Recommend continuing ICS/LABA/LAMA regimen upon discharge and outpatient pulmonary follow-up with PFTs and repeat imaging in 6 to 8 weeks. Agree with a 7-day course of antibiotics with transitioning to p.o. antibiotics in the next 24 hours. Emphysema type: unspecified Qualified Code(s): J43.9 - Emphysema, unspecified (3) Coronavirus infection: Plan: Supportive care as above. Continue Mucinex as needed. (4) Chronic HFrEF (heart failure with reduced ejection fraction): Plan: Maintain euvolemia with as needed diuresis. (5) Current smoker: Plan: Smoking cessation encouraged. (6) Pulmonary hypertension: Plan: Echo 10/22/2024 revealed an EF of 40 to 45% and RVSP of 30 to 40 mm. Mild to moderate mitral regurgitation noted as well. Suspect the patient has group 2 and 3 pulmonary hypertension. Plan Pulmonary to sign off at this time. Please call for questions. Thank you for the consult. Admission and Anticipated Discharge Date Admission Date: October 21, 2024 Subjective Patient substantially improved today and off of high flow oxygen and now on low- flow oxygen. She describes less cough and less shortness of breath. No fevers, chills or night sweats. No chest pain. Review of Systems Review of Systems: All systems reviewed & are unremarkable except as noted in HPI & below Physical Exam Physical Exam: VITAL SIGNS Vital signs and nursing notes were reviewed. GENERAL 68-year-old female appearing her stated age who is in no acute distres s. Communicates well with provider and answers questions appropriately. SKIN Without rashes or lesions. NOSE Midline and without cyanosis. No epistaxis or purulent drainage noted. MOUTH/OROPHARYNX Without perioral cyanosis. NECK Neck with FROM. Supple to palpation. LUNGS Chest wall evaluation demonstrates normal chest wall A:P diameter. Prolonged phase of exhalation. Minimal wheeze. CARDIAC RRR with S1/S2. No murmur, rubs, or gallops appreciated. ABDOMEN Abdominal inspection demonstrates flat. BS normoactive all four quadrants. No tenderness, palpable masses, or ascites noted. EXTREMITIES Nail clubbing not present. No peripheral cyanosis. No pretibial edema present. +3/5 radial palpated throughout. PSYCH A&Ox3 and cooperates fully with examiner. Pt is very pleasant and interacts well with examiner. Results & Data Results & Data Vital Signs (Past 12 Hours) Vital Signs Temp Pulse Resp BP BP Pulse Ox O2 Del Method 10/23/24 11:46 36.7 C 75 19 139/62 97 Nasal Cannula 10/23/24 08:00 Oxymask 10/23/24 07:22 36.3 C L 69 16 147/74 H 95 Oxymask 10/23/24 06:35 74 17 95 Oxymask 10/23/24 02:49 36.9 C 81 20 125/78 95 Oxymask O2 Flow Rate 10/23/24 11:46 4 10/23/24 08:00 6 10/23/24 07:22 6 10/23/24 06:35 6 10/23/24 02:49 4 PG Care Time/CCT Total # of Minutes Spent Total Time Spent with Patient: Total time spent is greater than 50% in coordination of care (as documented) at patient's floor/unit and/or counseling patient: Coding Level of Care Code 51621 SUB INP/OBS CARE 2/35MIN Diagnoses Hypoxia R09.02 Pulmonary emphysema, unspecified emphysema type J43.9 Emphysema type: unspecified Coronavirus infection B34.2 Chronic HFrEF (heart failure with reduced ejection fraction) I50.22 Current smoker F17.200 Pulmonary hypertension I27.20
[2024-10-23] MEDS: METOPROLOL SUCC 25MG EXT REL TAB PO SCH (19:59)
[2024-10-24] MEDS: FLUTICASONE PROPIONATE NA SPR 16 GM BTL SCH (01:20)
[2024-10-24 07:28] LABS: Basophils # (auto) 0.01 K/uL (0.00-0.20); Basophils % (auto) 0.1 %; Hematocrit (blood only) 36.7 % (37.0-47.0); Hemoglobin 12.1 g/dl (12.0-16.0); Immature Granulocytes # (auto) 0.06 K/uL (0.01-0.20); Immature Granulocytes % (auto) 0.5 %; Lymphocytes % (auto) 12.4 %; Mean Corpuscular Hemoglobin 32.1 pg (25.0-34.0); Mean Corpuscular Volume 97.3 fL (80.0-100.0); Mean Platelet Volume 11.3 fL (9.4-12.4); Monocytes # (auto) 0.88 K/uL (0.11-0.59); Monocytes % (auto) 6.8 %; Neutrophils # (auto) 10.35 K/uL (1.40-6.50); Neutrophils % (auto) 80.2 %; Platelet Count 152 K/uL (130-400); RDW Coefficient of Variation 12.9 % (11.5-14.5); RDW Standard Deviation 45.9 fL (36.4-46.3); Red Blood Count 3.77 M/uL (4.20-5.40)
[2024-10-24 07:50] LABS: Albumin Globulin Ratio 1.2 (0.9-2); Albumin Level 3.5 gm/dl (3.4-5.0); Bilirubin,Total 0.3 mg/dl (0.2-1.0); Calcium 9.6 mg/dl (8.6-10.3); Creatinine Clr Calc Pharmacy 60.2 ml/min; Globulin 2.9 gm/dl (2.5-4.0); Magnesium 1.8 mg/dl (1.7-2.4); Phosphorus 2.7 mg/dl (2.5-4.9); Potassium 3.9 mmol/L (3.5-5.1); Total Protein 6.4 gm/dl (6.0-8.3)
[2024-10-24] MEDS: METOPROLOL SUCC 50MG EXT REL TAB PO SCH (08:37)
--- NOTE | 2024-10-24 10:47 | Cardiology Progress Note ---
Date of Service October 24, 2024 Assessment & Plan (1) C. difficile colitis: (2) Chronic HFrEF (heart failure with reduced ejection fraction): (3) COPD with emphysema: (4) CAD (coronary artery disease): (5) Hypertension: (6) PAD (peripheral artery disease): Plan Very complex 68-year-old female with documented cardiac and vascular disease as outlined in HPI including underlying ischemic cardiomyopathy with mildly reduced ejection fraction. Presents this admission noting several days increasing diarrhea and nausea and vomiting possible acute C. difficile colitis superimposed on chronic C. difficile diarrhea. On presentation found to be hypoxic with relative hypotens ion. COVID-positive. Has received 3 L volume resuscitation since admission. Multiple antihypertensives on hold. Blood pressures improved, hypoxia relatively improved but still with O2 demands. Has rhonchorous wheezy cough. Echocardiogram not significantly changed BNP minimally elevated but nondiagnostic Impression: Acute hypoxic respiratory failure Nausea vomiting and worsening diarrhea with relative hypotension on presentation Overall findings not suggestive of significant volume overload on exam. Chest x-ray improved from last examination in August Current antihypertensives on hold. Transient mild bradycardia overnight. Recommendations: Would not diurese further after today and reassess volume status in a.m. Continue treat underlying pulmonary issues including recent COVID infection. Suspect component of chronic hypoxia Will reduce metoprolol succinate to 50 mg a.m. 25 mg p.m. Gradually reintroduced antihypertensive regimens as necessary though suspect with diuresis we will continue to hold. No cardiac symptoms current 10/24/2024 Continues to improve clinically. Still with rhonchorous cough but less prominent. No worsening hypoxia Diuresis yesterday tolerated with blood pressure now beginning to resume higher levels. Recommendations: Continue reduced dose metoprolol in the evening Restart losartan at reduced dosing for renal protection and associated hypertension. Will begin at 50 mg p.o. today. Consider addition of spironolactone as tolerated Would recommend discontinuing Mag-Ox given chronic diarrhea issues Continue to treat underlying pulmonary issues I spent a total of 60 minutes on the date of service in preparation, delivery, and documentation of the care provided to this patient, excluding any time spent in the performance of separately billed services. Admission and Anticipated Discharge Date Admission Date: October 21, 2024 Subjective Patient seen and examined, chart, medications, telemetry reviewed Clinically improved this morning. No worsening respiratory distress. Diarrhea has improved. No chest pains, dizziness, lightheadedness, syncope. Blood pressure now increasing. Still with moderately productive cough rhonchorous changes right lung base on cough No significant arrhythmias Review of Systems Review of Systems: All systems reviewed & are unremarkable except as noted in Subjective Physical Exam Constitutional: no acute distress Eyes: PERRL, conjunctivae normal, anicteric sclerae Neck: trachea midline, no thyromegaly Respiratory: Auscultation: + diminished lung sounds 10/24/2023 rhonchi, wheezes right base wit h forced cough Cardiovascular: Rate/Rhythm: regular rate and regular rhythm Heart Sounds: normal S1 and normal S2 Vessels: normal carotid upstroke and dorsalis pedis pulses present; no JVD Extremities: no edema Gastrointestinal (Abdomen): Percussion/Palpation: abdomen soft; abdomen nontender Musculoskeletal: no cyanosis or clubbing, extremities motor strength 5/5 Results & Data Vital Signs (Past 12 Hours) Vital Signs Temp Pulse Pulse Pulse Pulse Pulse Resp 10/24/24 09:12 67 10/24/24 09:12 10/24/24 09:05 89 63 10/24/24 07:38 66 17 10/24/24 07:31 36.7 C 56 L 16 10/24/24 03:21 36.6 C 68 18 10/23/24 22:54 36.5 C 76 18 10/23/24 22:53 77 Resp Resp BP Pulse Ox Pulse Ox Pulse Ox O2 Del Method 10/24/24 09:12 10/24/24 09:12 Room Air 10/24/24 09:05 20 17 90 93 10/24/24 07:38 96 Nasal Cannula 10/24/24 07:31 145/83 H 95 Nasal Cannula 10/24/24 03:21 149/87 H 97 Nasal Cannula 10/23/24 22:54 158/77 H 95 Nasal Cannula 10/23/24 22:53 O2 Flow Rate 10/24/24 09:12 10/24/24 09:12 10/24/24 09:05 10/24/24 07:38 2 10/24/24 07:31 3 10/24/24 03:21 3 10/23/24 22:54 3 10/23/24 22:53 Laboratory Results Laboratory Results - last 24 hr 10/24/24 06:52 WBC 12.90 H RBC 3.77 L Hgb 12.1 Hct 36.7 L MCV 97.3 MCH 32.1 MCHC 33.0 RDW Std Deviation 45.9 RDW Coeff of [place] 12.9 Plt Count 152 MPV 11.3 Immature Gran % (Auto) 0.5 Neut % (Auto) 80.2 Lymph % (Auto) 12.4 Bull[place] % (Auto) 6.8 Eos % (Auto) 0.0 Baso % (Auto) 0.1 Neut # (Auto) 10.35 H Lymph # (Auto) 1.60 [place] # (Auto) 0.88 H Eos # (Auto) 0.00 Baso # (Auto) 0.01 Immature Gran # (Auto) 0.06 Sodium 139 Potassium 3.9 Chloride 104 Carbon Dioxide 29 Anion Gap 6 BUN 19 Creatinine 0.73 Est Cr Clr Drug Dosing 60.2 eGFR 88.97 BUN/Creatinine Ratio 26.0 H Glucose 121 H Calcium 9.6 Phosphorus 2.7 Magnesium 1.8 Total Bilirubin 0.3 AST 18 ALT 19 Alkaline Phosphatase 64 Total Protein 6.4 Albumin 3.5 Globulin 2.9 Albumin/Globulin Ratio 1.2 (3) COPD with emphysema Emphysema type: unspecified Qualified Code(s): J43.9 - Emphysema, unspecified (4) CAD (coronary artery disease) Coronary Disease-Associated Artery/Lesion type: [place] artery [place] vs. transplanted heart: [place] heart Associated angina: without angina Qualified Code(s): I25.10 - Atherosclerotic heart disease of [place] coronary artery without angina pectoris (5) Hypertension Hypertension type: primary hypertension Qualified Code(s): I10 - Essential (primary) hypertension
[2024-10-24 11:29] VITALS: RESP 20; TEMP 98.3; O2SAT 90
[2024-10-24] MEDS: LOSARTAN POTASSIUM 50 MG TAB PO SCH (12:04)
--- NOTE | 2024-10-24 12:08 | Discharge Summary ---
Discharge Summary Date of Service October 24, 2024 Principal Dx & Hospital Course #1 = Principal Diagnosis (1) Hypoxia: Plan Pt is a 68-year-old female with past medical history significant for type 2 diabetes, dyslipidemia, COPD, CAD status post CABG, chronic heart failure with reduced ejection fraction, paroxysmal atrial fibrillation, peripheral artery disease status post femoral-popliteal bypass surgery, hypertension, B12 de ficiency, osteoporosis, compression of lumbar vertebra, backache, migraine, iron deficiency anemia, tobacco use disorder, anxiety disorder who presented due to intractable nausea and vomiting at home. Found to be significantly hypoxic in the ED with oxygen saturation in the 70s, requiring oxymask 5L. Acute hypoxic respiratory failure Coronavirus Infection COPD Exacerbation Pulmonary HTN Pleural effusion Presented with N/V, hypoxic in the 70s in the ED eventually requiring hi james on admission respiratory biofire noting coronavirus infection VBG on admission noting pH of 7.25, pCO2 48, HCO3 of 21 chest xray noting a small L sided pleural effusion CTA chest noting no PE but does note pulmonary HTN procalcitonin negative Continued oxygen supplementation and patient was eventually weaned down No obvious wheezing Nebs as needed Empiric Unasyn and azithromycin in setting of COPD- transitioned to p.o. Augmentin and azithromycin on discharge Treated with dexamethasone (benzyl alcohol free in the hospital and pt had tolerated before). Discharged with 2 more days of p.o. dexamethasone 6 mg and patient[facility] will reach out to the section gang to confirm that version is also benzyl alcohol free. supportive care for viral infection pulmonary consulted, recommended/stated the following: "...COPD exacerbation in the setting of coronavirus. Recommend 5 days total of dexamethasone and then discontinuation once complete. Agree with LABA/LAMA/ICS regimen. Recommend continuing ICS/LABA/LAMA regimen upon discharge and outpatient pulmonary follow-up with PFTs and repeat imaging in 6 to 8 weeks. Agree with a 7-day course of antibiotics with transitioning to p.o. antibiotics in the next 24 hours....Supportive care as above. Continue Mucinex as needed...Pulmonary hypertension...Echo 10/22/2024 revealed an EF of 40 to 45% and RVSP of 30 to 40 mm. Mild to moderate mitral regurgitation noted as well. Suspect the patient has group 2 and 3 pulmonary hypertension..." On the day of discharge patient was discharged with Augmentin and azithromycin to complete 7 days of treatment. She was also discharged with p.o. dexamethason e. She was also given a Breo inhaler as well as an Incruse Ellipta per the recommendations of pulmonology and the need for ICS/LABA/LAMA inhaler treatments. She had a two-step completed which noted that she did not need any oxygen on discharge. Please ensure close pulmonology follow-up after discharge. Acute on Chronic CHF Pulmonary HTN Pt with Hx of HFrEF Concern for an acute exacerbation given significant oxygen requirement, pleural effusions, elevated BNP Echo with EF 40-45%, inferior wall akinesis, mild to moderate RV dilation, increased RV pressure Trop normal EKG sinus with PACs and bigeminy Pt with allergy to Lasix, started on Bumex 2mg BID, Had limited diuresis Continued home spironolactone Cardiology was consulted, recommended or stated the following: "Recommendations: Continue reduced dose metoprolol in the evening Restart losartan at reduced dosing for renal protection and associated hypertension. Will begin at 50 mg p.o. today. Consider addition of spironolactone as tolerated Would recommend discontinuing Mag-Ox given chronic diarrhea issues Continue to treat underlying pulmonary issues" Pulmonology on board for pulm HTN, appreciate recs Daily Is and Os and weights On the day of discharge patient no longer requiring oxygen. She was discharged with metoprolol succinate 50 mg in the morning and 25 mg in the evening. Her losartan dose was decreased to 50 mg daily and her spironolactone was continued at 25 mg daily. Please ensure close cardiology follow-up after discharge. Nausea and vomiting Chronic Diarrhea C diff colitis presenting symptoms of N/V Chronic diarrhea at home Currently positive for c diff gene and toxin Continue with po vancomycin advance diet as tolerated CT abd pelvis ordered, pt with allergy to contrast. last reviewed, noted colitis changes at that time in Nov GI consulted, recommended/stated the following: "Continue with Vancomycin long-taper Follow-up in outpatient clinic to reassess complaints of chronic diarrhea" Hold home loperamide Please ensure close followup with GI after discharge. Transient Bradycardia Pt with episodes overnight on 10/22 EKG with sinus rhythm and PACs Cardiology on board as above "...Will reduce metoprolol succinate to 50 mg a.m. 25 mg p.m..." Resolved on discharge Metabolic acidosis possibly from chronic diarrhea half amp of sod bicarb on admission Nephrology consulted, appreciate recs Chronic Anemia Iron Deficiency Anemia Folate deficiency Continue home folate supplement History of CAD status post CABG Continue Eliquis, metoprolol succinate and statin Hypertension Continue metoprolol succinate at reduced dose as above Resumed losartan at 50mg Holding hydralazine on discharge until pcp or cardiology followup Type 2 diabetes not on meds Will monitor Chronic back pain On gabapentin Hyperlipidemia On statin GERD Omeprazole History of hypokalemia and hypomagnesia Continue home K supplements mag discontinued in setting of diarrhea Notes For Next Care Provider Please ensure close follow-up with pulmonology, GI and cardiology after discharge Medication Changes From Visit per pulmonology: Augmentin 875 mg twice a day for 5 more days Azithromycin 500 mg for 1 more day po Dexamethasone 6 mg daily for 2 more days Per GI: Pulse taper of p.o. vancomycin Per cardiology: Continue with metoprolol succinate 50 mg every morning and 25 mg every afternoon Losartan 50 mg daily Home spironolactone 25 mg daily d/c mag-ox Admission HPI Per Admitting Provider 68-year-old female with past medical history significant for type 2 diabetes, dyslipidemia, COPD, CAD status post CABG, chronic heart failure with reduced ejection fraction, paroxysmal atrial fibrillation, peripheral artery disease status post femoral-popliteal bypass surgery, hypertension, B12 deficiency, osteoporosis, compression of lumbar vertebra, backache, migraine, iron deficiency anemia, tobacco use disorder, anxiety disorder comes because of nausea and vomiting started today morning. Patient states had vomiting and also having a lot of dry heaves and was not getting better so she came to the ER. Currently her abdominal feels better and she wants to eat. In the ER her oxygen sats were 75% and requiring 5 L oxy mask. Patient denies any shortness breath currently. Denies chest pain. Denies any fevers. No cough. No headache. Vision is okay. No runny nose. Currently no abdominal pain. Has chronic diarrhea. Normal bladder movements as per patient. Currently hemodynamics are okay. Past medical history. As mentioned above Past surgical history. CABG. Small bowel resection. Appendectomy. Bilateral cataracts. Cholecystectomy. Partial removal of pancreas. Multimodal stomach. Tonsillectomy adenectomy. Social history. . Smoked 1 pack a day for 58 years. No alcohol use. No drug use. Family history. No family history on file Admission Exam Per Admitting Provider General- Not in acute distress Head- atraumatic Eyes- PERRL. ENT- oropharynx clear Neck- supple, no JVD. Lungs- clear to auscultation no wheezing or crackles Heart- regular rate and rhythm; no murmur, no gallop. Abdomen- normal bowel sounds, soft, nontender, no distension Extremities- no pretibial edema, no erythema seen. Neuro- alert, oriented PERRL, no facial palsy; no dysarthria; moves extremities Discharge Exam General: Alert, oriented. No acute distress Psych: Appropriate mood and affect Neuro: No gross deficits HEENT: NC/AT CV: RRR Resp: Breath sounds decreased bilaterally, no increased effort of breathing Abdomen: Soft, nontender Extremities: no edema currently Updated Medication List Medication Instructions Recorded Confirmed Type albuterol sulfate 90 mcg/actuation 2 inh inhalation Q4H PRN Shortness 10/21/24 10/21/24 History aerosol inhaler Of Breath Or Wheezing apixaban 5 mg tablet (Eliquis) 5 mg PO BID 10/21/24 10/21/24 History calcitonin (salmon) 200 1 spray intranasal DAILY 10/21/24 10/21/24 History unit/actuation nasal spray fluticasone propionate 50 1 spray intranasal BID 10/21/24 10/21/24 History mcg/actuation nasal spray,suspension gabapentin 400 mg capsule 400 mg PO TID 10/21/24 10/21/24 History hydralazine 25 mg tablet 25 mg PO TID 10/21/24 10/21/24 History lorazepam 1 mg tablet 1 mg PO QID PRN Anxiety 10/21/24 10/21/24 History omeprazole 40 mg capsule,delayed 40 mg PO DAILY 10/21/24 10/21/24 History release potassium chloride 20 mEq 20 meq PO DAILY 10/21/24 10/21/24 History tablet,extended release(part/cryst) pravastatin 40 mg tablet 40 mg PO HS 10/21/24 10/21/24 History spironolactone 25 mg tablet 25 mg PO DAILY 10/21/24 10/21/24 History trazodone 150 mg tablet 150 mg PO HS 10/21/24 10/21/24 History amoxicillin 875 mg-potassium 1 tab PO BID #10 tabs 10/24/24 Rx clavulanate 125 mg tablet azithromycin 250 mg tablet 500 mg (2 x 250 mg) PO QAM #2 tabs 10/24/24 Rx dexamethasone 6 mg tablet 6 mg PO DAILY #2 tabs 10/24/24 Rx fluticasone furoate 100 1 inh inhalation DAILY #60 ea 10/24/24 Rx mcg-vilanterol 25 mcg/dose inhalation powder (Breo Ellipta) losartan 100 mg tablet 50 mg (1/2 x 100 mg) PO DAILY #15 10/24/24 Rx tabs metoprolol succinate 25 mg 25 mg PO QPM #30 tabs 10/24/24 Rx tablet,extended release 24 hr metoprolol succinate 50 mg 50 mg PO QAM #30 tabs 10/24/24 Rx tablet,extended release 24 hr ondansetron HCl 4 mg tablet 4 mg PO Q8H PRN nausea and 10/24/24 Rx vomiting #30 tabs umeclidinium 62.5 mcg/actuation 1 inh inhalation DAILY #30 ea 10/24/24 Rx blister powder for inhalation (Incruse Ellipta) vancomycin 125 mg capsule 125 mg PO DIRECTED #68 caps 10/24/24 Rx Hospital Stay Data Consultations 10/21/24 21:54 ED Decision to Admit Stat 10/22/24 08:00 Consult Gastroenterology Routine Consult Nephrology Routine Consult Pulmonology Routine 10/23/24 07:08 Consult Cardiology Routine Diagnostic Imagining Performed 10/22/24 00:51 CT angio chest PE protocol Urgent 10/23/24 08:00 CT Abd and Pelvis [CT abd pelvis wo con] Routine Discharge Instructions Given to Patient (Per Discharging Provider) Sierra, You were admitted and treated for severe nausea and vomiting. You also have chronic diarrhea and it appears you have another infection of C. difficile as well. Please continue with the extended course of vancomycin and keep close follow-up with gastroenterology after discharge. please continue with as needed zofran/ondansetron to help your nausea and vomitting. You were also noted to have a coronavirus (non-COVID) infection. It caused a COPD exacerbation as well. You required quite a bit of oxygen to breathe. At the time of discharge, it was noted that you did not need to use any oxygen at rest or while you were up and moving. You were seen by the cardiopulmonary supervisor as well as the can runner. Pulmonology recommends that you continue with the antibiotics prescribed to complete 7 days of treatment. Please continue with the Augmentin for an additional 5 days as well. You have one more dose of the azithromycin remaining, please take that tomorrow October 25. Pulmonology also wanted you on the dexamethasone to complete 5 days of treatment. Please take that for an additional 2 more days. Continue with your inhalers at home. You will need to closely follow-up with pulmonology after discharge. The can runner made some changes to your medications. Please continue taking metoprolol succinate 50 mg in the morning but the decreased dose of 25 mg at nighttime. Your losartan dose was decreased to 50 mg at this time. Please continue with your home spironolactone 25 mg daily. Please keep close follow up with your primary care provider after discharge. Please do not hesitate to come back to the emergency room if your symptoms worsen or return. It was a pleasure taking care of you while you were here. Total Time Total Time Spent Total Time Spent (In Minutes): 65
[2024-10-24 13:01] VITALS: BP 125/78; PULSE 56
--- NOTE | 2024-10-27 11:16 | Coding Query ---
CODING QUERY To promote full compliance with coding requirements relating to patient care, provider participation is requested in all cases of continuous improvement lead uncertainty. Please assist us with the question(s) below: Coding Question(s): The Discharge Summary documents, "You were admitted and treated for severe nausea and vomiting". Please specify below, in your clinical opinion, the most likely source(s) of nausea and vomiting upon admission: ( ) C. Difficile Colitis ( ) COPD Exacerbation ( ) Other: Please Specify (x ) Unknown likely source ( ) the patient was admitted for other: Please Specify Physician's Response(s): Thank you Albertina Long Principal Diagnosis: "that condition established after study, to be chiefly responsible for occasioning the admission of the patient to the hospital for care." Co-Existing Principal Diagnosis: "when two or more diagnoses equally meet the criteria for principal diagnosis as determined by the circumstances of admission, diagnostic work up, and/or therapy provided, and the Alphabetic Index, Tabular List, or another coding guideline does not provide sequencing direction, any one of the diagnoses may be sequenced first." "When the physician has documented what appears to be a current diagnosis in the body of the record, but has not included the diagnosis in the final diagnostic statement, the physician should be asked whether the diagnosis should be added." (Source Coding [facility] 2 QTR90. p3-4) HOLLY
== END 2024-10-24 13:27 | disposition home health service (06) | DRG 391 ==
LOC: ED 19:07 → 2S 23:36

== ENCOUNTER 2024-11-29 10:31 | Inpatient (IN) ==
--- OUTSIDE RECORDS SUMMARY | 2024-11-29 10:37 | External Medical Summary ---
Author Name Unknown Address Unknown Organization [id number] [address] [place] [id number] Laboratory Report Ordering Provider Test Date Status JUAN HERRING 11/21/2024 11:51:12 Final Observation Date Value Abnormality Reference (Units ) Status SYNC LEUKOCYTES IN BLOOD BY AUTOMATED COUNT 11/21/2024 11:51:12 9.14 4.00-10.80 (K/uL) Final Segs 11/21/2024 11:51:12 63.8 40.0-75.0 (%) Final Lymphs % 11/21/2024 11:51:12 27.9 18.0-42.0 (%) Final Monos 11/21/2024 11:51:12 7.2 1.0-11.0 (%) Final Eosinophils 11/21/2024 11:51:12 0.9 0.0-6.0 (%) Final Basos 11/21/2024 11:51:12 0.2 0.0-2.0 (%) Final Absolute Segs 11/21/2024 11:51:12 5.83 1.80-7.70 (K/uL) Final Lymphs, absolute 11/21/2024 11:51:12 2.55 1.00-4.80 (K/ul) Final Monos, Abs 11/21/2024 11:51:12 0.66 0.00-1.10 (K/uL) Final Eos, Abs 11/21/2024 11:51:12 0.08 0.00-0.70 (K/uL) Final Basos, Abs 11/21/2024 11:51:12 0.02 0.00-0.20 (K/uL) Final Performing Location [facility] [place] [id number]
--- OUTSIDE RECORDS SUMMARY | 2024-11-29 10:37 | External Medical Summary | Summary of Care ---
Author Name Unknown Organization [facility] Address [address] [place] [address] Phone [phone] Care Team Providers Care Business Account Specialist Name Role Phone Akbar Daniel Primary Care Provider Reason for Referral * Precert (Within 10 days (routine)) - Authorized Specialty Diagnoses / Procedures Referred By Froylan marie Referred To Contact Radiology Diagnoses COPD, severity to be determined (HCC) Chronic respiratory failure, unspecified whether with hypoxia or hypercapnia (HCC) Severe tobacco use disorder History of tobacco abuse Procedures CT CHEST LOW DOSE SCAN LUNG CANCER SCREEN INITIAL LUNG CANCER SCREENING PROGRAM REFERRAL Bart Hadley PA-C [address] [place] [phone] Phone: tel: fax: Referral ID Status Reason Start Date Expiration Date V isits Requested Visits Authorized [id number] Authorized 11/18/2024 999 999 Reason for Visit * Reason Comments NEW PATIENT New pulm. HTN. * Evaluate & Treat - Unlimited Visits (Within 30 days (routine)) - Authorized Specialty Diagnoses / Procedures Referred By Contfernanda t Referred To Contact Pulmonary Diseases / Pulmonary Diagnoses Pulmonary HTN (HCC) Emani Parikh CRNP [address] [place] [address] Phone: tel: fax: Referral ID Status Reason Start Date Expiration Date Visits Requested Visits Authorized [id number] Authorized Specialty Services Required 11/04/2024 999 999 Encounter Details Date Type Department Care Team (Late st Contact Info) Description 11/18/2024 10:30 AM EST Office Visit Pulmonary Medicine, [facility] [address] [place] [address] Keo Amezcua MD [address] [facility] [place] [id number] Pulmonary hypertension (HCC)*; COPD, severity to be determined (HCC); Chronic respiratory failure, unspecified whether with hypoxia or hypercapnia (HCC); Seasonal allergic rhinitis, unspecified trigger; Peripheral arterial disease (HCC); Chronic coronary artery disease; Severe tobacco use disorder; History of tobacco abuse Allergies Active Allergy Reactions Criticality Noted Date [...] as of this encounter (statuses as of 11/18/2024) Medications LORAZEPAM 1 MG PO TABSIndications:P t also taking 1 tab in evening. Take 1 Tablet by mouth in the morning and 1 Tablet at noon and 1 Tablet before bedtime. Active NITROGLYCERIN 0.4 MG SL SUBLIndications:C hronic coronary artery disease,S/P coronary artery bypass with four autogenous grafts as needed 25 Tab 5 012 Active Eliquis 5 MG Oral Tablet Take 1 Tablet by mouth in the morning and 1 Tablet before bedtime. 022 Active Pravastatin Sodium 40 MG Oral Tablet (Pravachol)Indica tions:Coronary artery disease involving autologous vein coronary bypass graft without angina pectoris TAKE 1 TABLET BY MOUTH EVERYDAY AT BEDTIME 90 Tablet 3 024 Active Iron Dextran 50 MG/ML Injection Solution (Infed) Administer 50 mg intravenously. Receives infusions for 3 weeks, three times a year. 023 Active Calcitonin ([place]) 200 UNIT/ACT Nasal Solution (Fortical)Indicat ions:Compression fracture of lumbar vertebra, unspecified lumbar vertebral level, initial encounter ([facility]) Administer 1 [place] into one nostril in the morning. alternate nostrils.. 3 mL 11 024 Active Omeprazole 40 MG Oral Capsule Delayed Release (PriLOSEC)Indicat ions:GERD (gastroesophageal reflux disease) TAKE 1 CAPSULE BY MOUTH IN THE MORNING AND BEFORE BEDTIME 180 Capsule 1 024 Active Gabapentin 400 MG Oral Capsule (Neurontin) Take 1 Capsule by mouth in the morning and 1 Capsule at noon and 1 Capsule before bedtime. 024 Active Fluticasone Propionate 50 MCG/ACT Nasal Suspension (Flonase)Indicati ons:Chronic nasal congestion Administer 1 [place] into each nostril in the morning and 1 [place] before bedtime. 15.8 mL 4 024 Active Albuterol Sulfate HFA 108 (90 Base) MCG/ACT Inhalation Aerosol SolutionIndicatio ns:COPD, severity to be determined ([facility]) INHALE 2 PUFFS BY MOUTH EVERY 4 HOURS NEEDED FOR SHORTNESS OF BREATH 18 g 3 025 Active hydrALAZINE HCl 25 MG Oral Tablet (Apresoline) Take 1 Tablet by mouth in the morning and 1 Tablet at noon and 1 Tablet before bedtime. 270 Tablet 3 025 Active amLODIPine Besylate 5 MG Oral Tablet (Norvasc) Take 1 Tablet by mouth in the morning and 1 Tablet before bedtime. 180 Tablet 3 025 Active Potassium Chloride Stephanie ER 20 MEQ Oral Tablet Extended Release Take 1 Tablet by mouth in the morning. 90 Tablet 025 Active Spironolactone 25 MG Oral Tablet (Aldactone) Take 1 Tablet by mouth in the morning. 90 Tablet 025 Active Ondansetron 8 MG Oral Tablet Disintegrating (Zofran) 1 Tablet every 8 hours as needed. Active Ondansetron HCl 4 MG Oral Tablet (Zofran) Take 1 Tablet by mouth every 8 hours as needed for Nausea. Active Losartan Potassium 100 MG Oral Tablet (Cozaar) Take 0.5 Tablets by mouth in the morning. Active Metoprolol Succinate ER 25 MG Oral Tablet Extended Release 24 Hour (toPROL XL) Take 1 Tablet by mouth every evening. Active Metoprolol Succinate ER 50 MG Oral Tablet Extended Release 24 Hour (toPROL XL) Take 1 Tablet by mouth in the morning. Active Cefdinir 300 MG Oral Capsule (Omnicef) Take 1 Capsule by mouth in the morning and 1 Capsule before bedtime. Active Folic Acid 400 MCG Oral Tablet (Folate) Take 1 Tablet by mouth in the morning. 90 Tablet 3 Active Fluconazole 150 MG Oral Tablet (Diflucan) Take 1 Tablet by mouth every evening. 3 Tablet Active Additional Information Patient not taking.Reported on 11/18/2024 Nicotine 21 MG/24HR Transdermal Patch 24 Hour (EQ Nicotine) Place 1 Patch over 24 hours topically on the skin daily. 60 Patch 2024 Active Fluticasone Furoate-Vilantero l 200-25 MCG/ACT Inhalation Aerosol Powder Breath Activated (BREO ellipta) Inhale 1 Puff by mouth in the morning. 180 Blister Dosing Unit 3 2025 Active Spiriva Respimat 2.5 MCG/ACT Inhalation Aerosol Solution (Tiotropium [place] Monohydrate) Inhale 2 Puffs by mouth in the morning. 4 g 11 2025 Active Incruse Ellipta 62.5 MCG/ACT Inhalation Aerosol Powder Breath Activated (umeclidinium [place]) Inhale 1 Puff by mouth in the morning. 2024 Discontinued Fluticasone Furoate-Vilantero l 100-25 MCG/ACT Inhalation Aerosol Powder Breath Activated (BREO ellipta) Inhale 1 Puff by mouth in the morning. 2024 Discontinued Hospital, Clinic, or Other Facility Administered Medication Ordered Dose Route Frequency Start Date End Date Status Albuterol Sulfate (Proventil) (2.5 MG/3ML) 0.083% inhalation solution 2.5 mgIndications:COPD, severity to be determined (HCC) 2.5 mg NEBULIZER ONCE PRN 10/01/2024 10/01/2025 Active Albuterol Sulfate (Proventil) (2.5 MG/3ML) 0.083% inhalation solution 2.5 mgIndications:COPD, severity to be determined (HCC),Chronic respiratory failure, unspecified whether with hypoxia or hypercapnia (HCC) 2.5 mg NEBULIZER PRN 11/18/2024 11/18/2025 Active documented as of this encounter (statuses as of 11/18/2024) Active Problems Problem Noted Date Diagnosed Date [...] as of this encounter (statuses as of 11/18/2024) Social History Tobacco Use Types Packs/Day Years Used Date Smoking Tobacco: Every Day Cigarettes 1 58.1 Started: 09/26/1967 Smokeless Tobacco: Never Tobacco Cessation:Ready to Q uit: Not Asked; Counseling Given: Not Answered Comments:Occasionally uses e-cigarettes.1/2 ppd smoker. 11/18/24. 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 Not on file Not on file documented as of this encounter Last Filed Vital Signs Vital Sign Reading Time Taken Comments Blood Pressure 104/72 11/18/2024 10:34 AM EST Pulse 45 11/18/2024 10:34 AM EST Temperature 35.9 C (96.7 F) 11/18/2024 10:[address] Respiratory Rate 16 11/18/2024 10:34 AM EST Oxygen Saturation 98% 11/18/2024 10:36 AM EST ra-amb Inhaled Oxygen Concentration - - Weight 59 kg (130 lb) 11/18/2024 10:34 AM EST Height 160 cm (5' 3") 11/18/2024 10:34 AM EST Body Mass Index 23.03 11/18/2024 10:34 AM EST documented in this encounter Patient Instructions * Patient Instructions* Bart Hadley PA-C - 11/18/2024 11:46 AM EST Sierra Wang [id number] Benefits of Quitting Smoking Why should I quit smoking? Smoking is bad for you and bad for others around you. Smoking causes cancer, heart attacks, hardening of the arteries, bronchitis, emphysema, cough, shortness of breath, wrinkles, and premature aging. It stains teeth and fingers, irritates the eyes, furs the tongue, and causes bad breath. People are living longer today than their parents did, so it makes sense to work on staying healthy and independent. One of the best ways to do this is to quit smoking. Benefits of quitting smoking It takes time to reverse many years' worth of smoking damage to your body, but some benefits of quitting smoking begin immediately. For example, you're financially better off on day one. Your health starts to improve right away, too, because you remove a former constant source of irritation from your lungs. People may comment that you no longer cough. Your blood circulation is likely to improve, so your hands and feet may feel warmer. Your teeth, breath, and fingers are no longer a turn-off. Benefits that you're less aware of also begin to occur. These include better resistance to colds and respiratory infections, less likelihood of major heart and circulation problems, less risk of high blood pressure or stroke, and less risk of developing cancer. The following arguments are often presented by smokers as justifications for their continuing to smoke: "I have to sometime, so I might as well enjoy life until then." True, but as a smoker you're much more likely to of a heart attack or cancer - neither of whichare very pleasant ways to go. "I'm only hurting myself." True, if you don't count the heartache and grief you may cause your loved ones by your early or permanent disability, or the damage of your smoke to others. "Lots of people who smoke live to ripe old ages in perfect health." True, but this is rare. Nearly all smokers have significant health problems. "Smoking is one of my pleasures. I don't want to quit." Smoking is associated with pleasure because the nicotine in tobacco is an addictive drug. Your bodywill continue to crave a regular supply until you can overcome the habit. Smoking is always a disadvantage to your health and that of your loved ones. "It's my choice and I choose to smoke." True. It is your choice. In a survey of older former smokers, more than 90% quit on their own because they decided to do so. The main reasons they gave for quitting were wanting to stay healthy, following health care provider's advice, regaining control of their lives, and making a loved one happy . [place] Department of Health Quit Line [employer] Free Quitline 3-771 QUIT NOW ( ) Your insurance company may also have more information and helpful programs to help you quit. Some may even help cover some of the costs. For example, [facility] members can call to find out about their smoking cessation program and medication coverage. Developed by Leeann Cohen MD, for [employer]. Published by [employer]. Last modified: 2006-01-26 Last reviewed: 2005-11-15 This content is reviewed periodically and is subject to change as new health information becomes available. The information is intended to inform and educate and is not a replacement for medical evaluation, advice, diagnosis or treatment by a healthcare professional. Adult Health Advisor 2005.4 Index Adult Health Advisor 2005.4 Credits Copyright 2006 [employer] and/or one of its subsidiaries. All Rights Reserved. documented in this encounter Nursing Notes * Gladys Stewart LPN - 11/18/2024 10:37 AM EST Chief Complaint Patient presents with NEW PATIENT New pulm. HTN. Interm History/Respiratory Symptoms Cough: no Hemoptysis: no Sinus Symptoms: yes-congestion/drainage Hospitalizations: 10/21-10/24-acute hypoxic resp failure,coronavirus, COPD, pulm HTN, pleural effusion. ED Trips: 10/21 Triggers: perfume, dust Nocturnal: sleeps with head elevated CPAP/BiPAP/O2: no DME Supplier: no Flu Vaccine: none Pneumovax: none Prevnar: none COVID 19: none. Travel Screening Question 11/18/2024 10:19 AM EST - Filed by Patient Do you have any of the following new or worsening symptoms? None of these Have you recently been in contact with someone who was sick? No / Unsure Myc Visit Accident Related Question Question 11/18/2024 10:19 AM EST - Filed by Patient Is this visit related to an accident? (i.e work, motor vehicle) No [facility] Cat Question 11/18/2024 10:32 AM EST - Filed by Gladys Stewart LPN When do you become breathless? (1) I get short of breath when hurrying on level ground How frequently do you cough? (5) - I cough all the time Do you have phlegm in your chest? (0) - I have no phlegm (mucus) in my chest Is your chest tight? (0) - My chest does not feel tight at all How breathless do you become when walking up a hill or steps? (3) How limited are you doing activities at home? (0) - I am not limited doing any activities at home How confident are you leaving home with your lung condition? (0) - I am confident leaving my home despite my condition How soundly do you sleep? (0) - I sleep soundly How much energy do you have? (5) - I have no energy at all Total MMRC Score (range: 0 - 4) 1 Total CAT Score (range: 0 - 40) 13 Flu Vaccine Questionnaire Question 11/18/2024 10:33 AM EST - Filed by Gladys Stewart LPN Get your flu shot at your upcoming appointment. Please select one of the options below. I don't want the flu shot Copd Rescue Question 11/18/2024 10:33 AM EST - Filed by Gladys Stewart LPN Have you used an antibiotic (e.g., azithromycin, doxycycline, augmentin) in the last 12 months because of your breathing or lung problem? Yes, two or more times Have you added or increased the dose of a steroid (e.g., prednisone, solumedrol) in the last 12 months because of your breathing or lung problem? No Did you go to the ED, or were you hospitalized in the last 12 months because of your breathing or lung problem? Yes documented in this encounter Plan of Treatment Upcoming Encounters Date Type Department Care Team (Late st Contact Info) Description 12/04/2024 9:30 AM EDT PulmDiagnostic Pulmonary Function Lab, [facility] [address] [place] [address] [address], [address] [place] [address] 12/04/2024 10:00 AM EDT PulmDiagnostic Pulmonary Function Lab, [facility] [address] [place] [address] [place], [address] [place] [address] 12/10/2024 1:00 PM EDT Office Visit Otolaryngology [facility] [address] [place] [address] Amrik Hernandez PA-C [address] [place] [address] 12/25/2024 9:30 AM EDT Office Visit Pulmonary Medicine, [facility] [address] [place] [address] Keo Amezcua MD [address] [place] [address] 01/01/2025 10:00 AM EDT Office Visit [facility] [address] [place] [address] Emani Parikh CRNP [address] [place] [address] 02/04/2025 11:40 AM EDT Office Visit [facility] [address] [place] [address] Emani Parikh CRNP [address] [place] [address] 08/18/2025 10:20 AM EST Office Visit [facility] [address] [place] [address] Akbar Daniel DO [address] [place] [address] (work) Scheduled Orders Name Type Priority Associated Diagnoses Orde r Schedule CBC WITH WBC DIFFERENTIAL Lab Routine COPD, severity to be determined (HCC) Chronic respiratory failure, unspecified whether with hypoxia or hypercapnia (HCC) Seasonal allergic rhinitis, unspecified trigger Expected: 11/18/2024 (Approximate), Expires: 11/18/2025 [facility] PROFILE Lab Routine COPD, severity to be determined (HCC) Chronic respiratory failure, unspecified whether with hypoxia or hypercapnia (HCC) Seasonal allergic rhinitis, unspecified trigger Expected: 11/18/2024 (Approximate), Expires: 11/18/2025 PULMONARY STRESS TESTING Procedures Routine Pulmonary hypertension (HCC) COPD, severity to be determined (HCC) Chronic respiratory failure, unspecified whether with hypoxia or hypercapnia (HCC) Expected: 11/19/2024, Expires: 12/19/2025 DIFFUSION CAPACITY (DLCO) Procedures Routine COPD, severity to be determined (HCC) Chronic respiratory failure, unspecified whether with hypoxia or hypercapnia (HCC) Expected: 11/25/2024, Expires: 12/19/2025 LUNG VOLUMES (PLETHYSMOGRAPHY) Procedures Routine COPD, severity to be determined (HCC) Chronic respiratory failure, unspecified whether with hypoxia or hypercapnia (HCC) Expected: 11/25/2024, Expires: 12/19/2025 SPIROMETRY B/A BRONCHODILATOR Procedures Routine Pulmonary hypertension (HCC) COPD, severity to be determined (HCC) Chronic respiratory failure, unspecified whether with hypoxia or hypercapnia (HCC) Expected: 11/25/2024, Expires: 12/19/2025 NOCTURNAL HOME OXIMETRY (OP) Procedures Routine Pulmonary hypertension (HCC) COPD, severity to be determined (HCC) Chronic respiratory failure, unspecified whether with hypoxia or hypercapnia (HCC) Ordered: 11/18/2024 CT CHEST LOW DOSE SCAN LUNG CANCER SCREEN INITIAL Medical Imaging Routine COPD, severity to be determined (HCC) Chronic respiratory failure, unspecified whether with hypoxia or hypercapnia (HCC) Severe tobacco use disorder History of tobacco abuse Expected: 11/18/2024, Expires: 11/18/2026 Health Maintenance Due Date Last Done Comments DISCUSS TOBACCO CESSATION (REFER TO SMARTSET #[id number]) 1955 Depression Screening 1966 Albumin/Creatinine Ratio 1972 [...] ASSESSMENT COMPLETED IN PAST YEAR FOR COPD 11/18/2025 11/18/2024 Colonoscopy 11/06/2032 11/06/2022, 03/02/2022 Colorectal Cancer Screening 11/06/2032 Lung Cancer Screening Completed 01/03/2012 VITAMIN D LEVEL ONCE IN A LIFETIME-USE SMARTSET# [id number] Completed 01/10/2024, 10/11/2023, 12/02/2021, Additional history exists HPV (Gardasil) Vaccine Aged Out No lo nger eligible based on patient's age to complete this topic Hepatitis B Vaccine Aged Out No longe r eligible based on patient's age to complete this topic Hepatitis C Screening Discontinued MENINGOCOCCAL (MENACTRA/MENVEO) Aged Out No longer eligible based on patient's age to complete this topic Meningitis B Vaccine (Bexsero/Trumemba) Aged Out No longer eligible based on patient's age to complete this topic documented as of this encounter Medical Devices Implanted Type Area Fender Mechanic Device Identifier Shelf Expiration Date Model / Serial / Lot Graft Marker Coronary - [id number] Implanted:Qty: 1 on 01/15/2012 at OR [facility] N/A: Aorta VM CARDIO VASCULAR 04/16/2014 [id number] / / [id number] Sut Steel 6 M654g - [id number] Implanted:Qty: 6 on 01/15/2012 at OR [facility] N/A: Chest DO NOT USE 10/17/2016 [id number] / / [id number] Sut Steel 6 M654g - [id number] Implanted:Qty: 2 on 01/15/2012 at OR [facility] N/A: Chest DO NOT USE 10/17/2016 [id number] / / [id number] Graft Marker Coronary - [id number] Implanted:Qty: 1 on 01/15/2012 at OR [facility] N/A: Aorta VM CARDIO VASCULAR 08/16/2013 [id number] / / [id number] Lens Intraoc 15.5 - [id number] - [id number] Implanted:Qty: 1 on 10/21/2019 by Tay Acevedo MD at OR [facility] Left: Eye BAUSCH & LOMB 01/15/2024 [id number] / [id number] / Lens Intraoc 16.0 - [id number] - [id number] Implanted:Qty: 1 on 11/04/2019 by Tay Acevedo MD at OR [facility] Right: Eye BAUSCH & LOMB 05/17/2024 [id number] / [id number] / documented as of this encounter Visit Diagnoses Diagnosis Pulmonary hypertension (HCC)- Primary Other chronic pulmonary heart diseases COPD, severity to be determined (HCC) Chronic airway obstruction, not elsewhere classified Chronic respiratory failure, unspecified whether with hypoxia or hypercapnia (HCC) Seasonal allergic rhinitis, unspecified trigger Peripheral arterial disease (HCC) Peripheral vascular disease, unspecified Chronic coronary artery disease Coronary atherosclerosis of unspecified type of vessel, andreafski or graft Severe tobacco use disorder History of tobacco abuse Personal history of tobacco use, presenting hazards to health documented in this encounter Advance Directives * Full Code (Latest Code Status on File) Date Activated Date Inactivated Comments 01/15/2012 3:49 PM 01/20/2012 4:10 PM This order r eflects the patients wishes and were consensually agreed upon. Care Teams Business Account Specialist Relationship Specialty Start Date End Date Akbar Daniel DO [address] [place] [address] PCP - General Family Medicine 08/22/22 documented as of this encounter
--- OUTSIDE RECORDS SUMMARY | 2024-11-29 10:37 | External Medical Summary | Summary of Care ---
Author Name Unknown Organization [facility] Address [address] [place] [address] Phone [phone] Care Team Providers Care Outreach Associate Name Role Phone Akbar Daniel DO Primary Care Provider Reason for Visit * Reason Onset Date Comments Order Request 11/19/2024 Encounter Details Date Type Department Care Team (Late st Contact Info) Description 11/19/2024 Telephone Family Practice [facility] [address] [facility] [place] [address] Akbar Daniel DO [address] [facility] [place] [address] Order Request Allergies Active Allergy Reactions Criticality Noted Date [...] as of this encounter (statuses as of 11/19/2024) Medications LORAZEPAM 1 MG PO TABSIndications:Pt also [...] times a year. 07/17/20 23 Active Calcitonin ([place]) 200 UNIT/ACT Nasal Solution (Fortical)Indicati ons:Compression fracture of lumbar vertebra, unspecified lumbar vertebral level, initial encounter ([facility]) Administer 1 [place] into one nostril in the morning. alternate [...] 1 Capsule before bedtime. 09/05/20 24 Active Fluticasone Propionate 50 MCG/ACT Nasal Suspension (Flonase)Indicatio ns:Chronic nasal congestion Administer 1 [place] into each nostril in the morning and 1 [place] before bedtime. 15.8 mL 4 09/12/20 24 Active Albuterol Sulfate HFA 108 (90 Base) MCG/ACT Inhalation Aerosol SolutionIndication s:COPD, severity to be determined ([facility]) INHALE 2 PUFFS BY MOUTH EVERY [...] bedtime. 180 Tablet 3 10/01/19 25 Active Potassium Chloride Stephanie ER 20 MEQ Oral Tablet Extended Release Take 1 Tablet by mouth in the morning. 90 Tablet 10/06/19 25 Active Spironolactone 25 MG Oral Tablet (Aldactone) Take 1 Tablet by mouth in the morning. 90 Tablet 10/06/19 25 Active Ondansetron 8 MG Oral Tablet Disintegrating (Zofran) 1 Tablet every 8 hours as needed. 09/19/19 25 Active Ondansetron HCl 4 MG Oral Tablet (Zofran) Take 1 Tablet by mouth every 8 hours as needed for Nausea. 10/24/19 25 Active Losartan Potassium 100 MG Oral Tablet (Cozaar) Take 0.5 Tablets by mouth in the morning. 10/24/19 25 Active Metoprolol Succinate ER 25 MG Oral Tablet Extended Release 24 Hour (toPROL XL) Take 1 Tablet by mouth every evening. 10/24/19 25 Active Metoprolol Succinate ER 50 MG Oral Tablet Extended Release 24 Hour (toPROL XL) Take 1 Tablet by mouth in the morning. 10/27/19 25 Active Cefdinir 300 MG Oral Capsule (Omnicef) Take 1 Capsule by mouth in the morning and 1 Capsule before bedtime. 10/27/19 25 Active Folic Acid 400 MCG Oral Tablet (Folate) Take 1 Tablet by mouth in the morning. 90 Tablet 3 11/04/19 25 Active Fluconazole 150 MG Oral Tablet (Diflucan) Take 1 Tablet by mouth every evening. 3 Tablet 11/04/19 25 Active Additional Information Patient not taking.Reported on 11/18/2024 Nicotine 21 MG/24HR Transdermal Patch 24 Hour (EQ Nicotine) Place 1 Patch over 24 hours topically on the skin daily. 60 Patch 11/04/19 25 025 Active Fluticasone Furoate-Vilanterol 200-25 MCG/ACT Inhalation Aerosol Powder Breath Activated (BREO ellipta) Inhale 1 Puff by mouth in the morning. 180 Blister Dosing Unit 3 11/19/19 25 026 Active Spiriva Respimat 2.5 MCG/ACT Inhalation Aerosol Solution (Tiotropium [place] Monohydrate) Inhale 2 Puffs by mouth in the morning. 4 g 11 11/19/19 25 026 Active Hospital, Clinic, or Other Facility Administered [...] as of this encounter (statuses as of 11/19/2024) Active Problems Problem Noted Date Diagnosed Date [...] as of this encounter (statuses as of 11/19/2024) Social History Tobacco Use Types Packs/Day Years Used Date Smoking Tobacco: Every Day Cigarettes 1 58.1 Started: 09/26/1966 Smokeless Tobacco: Never Comments:Occasionally uses e -cigarettes.1/2 ppd smoker. 11/18/24. Alcohol Use Standard Drinks/Week [...] encounter Miscellaneous Notes * Telephone Encounter - Dimple Pino LPN - 11/19/2024 11:04 AM EST Order pended please sign if agreeable. * Telephone Encounter - Temo France OSA - 11/19/2024 10:43 AM EST Pt calling requesting incontinence supplies. Pt needs a 60 ct of the pads that go on the bed. Pt uses 2 a day. Pt would like order sent to [facility] documented in this encounter Plan of Treatment Upcoming Encounters Date Type Department Care Team (Late st Contact Info) Description 12/04/2024 9:30 AM EDT PulmDiagnostic Pulmonary Function Lab, [facility] 132 [facility] [place] [address] [address], [address] [place] [address] 12/04/2024 10:00 AM EDT PulmDiagnostic Pulmonary Function Lab, [facility] [address] [place] [address] [place], [address] [place] [address] 12/10/2024 1:00 PM EDT Office Visit Otolaryngology [facility] [address] [place] [address] Amrik Hernandez PA-C [address] [place] [address] 12/25/2024 9:30 AM EDT Office Visit Pulmonary Medicine, [facility] [address] [place] [address] Keo Amezcua MD [address] [place] [address] 01/01/2025 10:00 AM EDT Office Visit [facility] [address] [place] [address] Emani Parikh CRNP [address] [place] [address] 02/04/2025 11:40 AM EDT Office Visit [facility] [address] [place] [address] Emani Parikh CRNP [address] [place] [address] 08/18/2025 10:20 AM EST Office Visit [facility] [address] [place] [address] Akbar Daniel DO [address] [place] [address] Health Maintenance Due Date Last Done Comments DISCUSS TOBACCO CESSATION (REFER TO SMARTSET #0735) 1955 Depression Screening 1966 Albumin/Creatinine Ratio 1972 [...] D LEVEL ONCE IN A LIFETIME-USE SMARTSET# 01496 Completed 01/10/2024, 10/11/2023, 12/02/2021, Additional history exists [...] this encounter Medical Devices Implanted Type Area Warpman Device Identifier Shelf Expiration Date Model / Serial / Lot Graft Marker Coronary - [id number] Implanted:Qty: 1 on 01/15/2012 at OR [facility] N/A: Aorta VM CARDIO VASCULAR 04/16/2014 [id number] / / [id number] Sut Steel 6 M654g - [id number] Implanted:Qty: 6 on 01/15/2012 at OR [facility] N/A: Chest DO NOT USE 10/17/2016 M654G / / [id number] Sut Steel 6 M654g - [id number] Implanted:Qty: 2 on 01/15/2012 at OR [facility] N/A: Chest DO NOT USE 10/17/2016 M654G / / [id number] Graft Marker Coronary - [id number] Implanted:Qty: 1 on 01/15/2012 at OR [facility] N/A: Aorta VM CARDIO VASCULAR 08/16/2013 [id number] / / [id number] Lens Intraoc 15.5 - [id number] - [id number] Implanted:Qty: 1 on 10/21/2019 by Tay Acevedo MD at OR [facility] Left: Eye BAUSCH & LOMB 01/15/2024 [id number] / [id number] / Lens Intraoc 16.0 - [id number] - [id number] Implanted:Qty: 1 on 11/04/2019 by Tay Acevedo MD at OR [facility] Right: Eye BAUSCH & LOMB 05/17/2024 [id number] / [id number] / documented as of this encounter Visit Diagnoses Diagnosis Hospital discharge follow-up- Primary Other follow-up examination Mixed incontinence Mixed incontinence urge and stress (male)(female) documented in this encounter Advance Directives * Full Code (Latest Code Status on File) Date Activated Date Inactivated Comments 01/15/2012 3:49 PM 01/20/2012 4:10 PM This order re flects the patients wishes and were consensually agreed upon. Care Teams Outreach Associate Relationship Specialty Start Date End Date Akbar Daniel DO [facility] [address] [place] [address] PCP - General Family Medicine 08/22/22 documented as of this encounter
--- OUTSIDE RECORDS SUMMARY | 2024-11-29 10:37 | External Medical Summary | Summary of Care ---
Author Name Unknown Organization [facility] Address [address] [place] [address] Phone [phone] Care Team Providers Care Wheel Braider Name Role Phone Akbar Daniel DO Primary Care Provider Reason for Visit * Reason Onset Date Comments Order Request 11/19/2024 Encounter Details Date Type Department Care Team (Late st Contact Info) Description 11/19/2024 Telephone Family Practice [facility] [address] [facility] [place] [address] Akbar Daniel DO [address] [place] [address] Order Request Allergies Active Allergy Reactions [...] as of this encounter (statuses as of 11/21/2024) Medications LORAZEPAM 1 MG PO TABSIndications:Pt also [...] times a year. 07/17/20 23 Active Calcitonin ([place]) 200 UNIT/ACT Nasal Solution (Fortical)Indicati ons:Compression fracture of lumbar vertebra, unspecified lumbar vertebral level, initial encounter ([facility]) Administer 1 [place] into one nostril in the morning. alternate [...] Suspension (Flonase)Indicatio ns:Chronic nasal congestion Administer 1 [place] into each nostril in the morning and 1 [place] before bedtime. 15.8 mL 4 09/12/20 24 Active Albuterol Sulfate HFA 108 (90 Base) MCG/ACT Inhalation Aerosol SolutionIndication s:COPD, severity to be determined ([facility]) INHALE 2 PUFFS BY MOUTH [...] Respimat 2.5 MCG/ACT Inhalation Aerosol Solution (Tiotropium [place] Monohydrate) Inhale 2 Puffs by mouth in [...] as of this encounter (statuses as of 11/21/2024) Active Problems Problem Noted Date Diagnosed Date [...] as of this encounter (statuses as of 11/21/2024) Social History Tobacco Use Types Packs/Day Years Used Date Smoking Tobacco: Every Day Cigarettes 1 58.2 Started: 09/26/1966 Smokeless Tobacco: Never Comments:Occasionally uses [...] Telephone Encounter - Emani Parikh CRNP - 11/21/2024 4:22 PM EST Inboxologist Note: Order signed. Please fax to location of patient choice. Inboxologist Covering Provider All replies or additional communication must be routed to the PCP * Telephone Encounter - Dimple Pino LPN [...] Care Team (Late st Contact Info) Description 11/28/2024 9:30 AM EDT Imaging Radiology [facility] 1st [facility] [address] [place] [phone] 12/04/2024 9:30 AM EDT PulmDiagnostic Pulmonary Function Lab, [facility] [place] [address] [address], [address] 132 [facility] [place] [address] 12/04/2024 10:00 AM EDT PulmDiagnostic Pulmonary Function Lab, [facility] [place] [address] [address], [address] [facility] [place] [address] 12/10/2024 1:00 PM EDT Office Visit Otolaryngology [facility] [place] [address] Amrik Hernandez PA-C [address] [place] [address] 12/25/2024 9:30 AM EDT Office Visit Pulmonary Medicine, [facility] [address] [facility] [place] [address] Keo Amezcua MD [address] [place] [address] 01/01/2025 10:00 AM EDT Office Visit Family Practice [facility] 132 [facility] [place] [address] Emani Parikh CRNP [address] [place] [address] 02/04/2025 11:40 AM EDT Office Visit [facility] [address] [place] [address] Emani Parikh CRNP [address] [place] [address] 08/18/2025 10:20 AM EST Office Visit [facility] [address] [place] [address] Akbar Daniel DO [address] [place] [address] Health Maintenance Due Date Last Done Comments DISCUSS TOBACCO CESSATION (REFER TO SMARTSET #6707) 1955 Depression Screening 1966 Albumin/Creatinine Ratio 1972 [...] D LEVEL ONCE IN A LIFETIME-USE SMARTSET# 79487 Completed 01/10/2024, 10/11/2023, 12/02/2021, Additional history exists [...] this encounter Medical Devices Implanted Type Area Shot Hole Driller Device Identifier Shelf Expiration Date Model / Serial / Lot Graft Marker Coronary - [id number] Implanted:Qty: 1 on 01/15/2012 at OR [facility] N/A: Aorta VM CARDIO VASCULAR 04/16/2014 [id number] / / [id number] Sut Steel 6 M654g - [id number] Implanted:Qty: 6 on 01/15/2012 at OR [facility] N/A: Chest DO NOT USE 10/17/2016 M654G / / [id number] Sut Steel 6 M654g - [id number] Implanted:Qty: 2 on 01/15/2012 at OR [facility] N/A: Chest DO NOT USE 10/17/2016 M654G / / [id number] Graft Marker Coronary - [id number] Implanted:Qty: 1 on 01/15/2012 at OR [facility] N/A: Aorta VM CARDIO VASCULAR 08/16/2013 [id number] / / [id number] Lens Intraoc 15.5 - [id number] - [id number] Implanted:Qty: 1 on 10/21/2019 by Tay Acevedo MD at OR [facility] Left: Eye BAUSCH & LOMB 01/15/2024 [id number] / [id number] / Lens Intraoc 16.0 - [id number] - [id number] Implanted:Qty: 1 on 11/04/2019 by Tay Acevedo MD at OR [facility] Right: Eye BAUSCH & LOMB 05/17/2024 [id number] / [id number] / documented as of this encounter Visit Diagnoses Diagnosis Hospital discharge follow-up- Primary Other follow-up examination Mixed incontinence Mixed incontinence urge and stress (male)(female) documented in this encounter Advance Directives * Full Code (Latest Code Status on File) Date Activated Date Inactivated Comments 01/15/2012 3:49 PM 01/20/2012 4:10 PM This order re flects the patients wishes and were consensually agreed upon. Care Teams Wheel Braider Relationship Specialty Start Date End Date Akbar Daniel DO [address] [place] [address] PCP - General Family Medicine 08/22/22 documented as of this encounter
--- OUTSIDE RECORDS SUMMARY | 2024-11-29 10:37 | External Medical Summary ---
Author Name Unknown Address Unknown Organization K01:[facility] [place] [address] [facility] [address] Laboratory Report Ordering Provider Test Date Status JUAN HERRING 11/21/2024 11:51:12 Final Observation Date Value Abnormality Reference (Units ) Status Dust Mite IgE, pteronyssinus 11/21/2024 11:51:12 <0.10 <0.10 (kUa/L) Final Dust Mite IgE, farinae 11/21/2024 11:51:12 <0.10 <0.10 (kUa/L) Final Cat Epithelium IgE 11/21/2024 11:51:12 <0.10 <0.10 (kUa/L) Final Dog Dander IgE 11/21/2024 11:51:12 <0.10 <0.10 (kUa/L) Final Bermuda grass IgE 11/21/2024 11:51:12 0.12 <0.10 (kUa/L) Final Olivier IgE 11/21/2024 11:51:12 <0.10 <0.10 (kUa/L) Final Penicillium notatum IgE 11/21/2024 11:51:12 <0.10 <0.10 (kUa/L) Final Cladosporium IgE 11/21/2024 11:51:12 <0.10 <0.10 (kUa/L) Final Aspergillus IgE 11/21/2024 11:51:12 <0.10 <0.10 (kUa/L) Final Alternaria IgE 11/21/2024 11:51:12 <0.10 <0.10 (kUa/L) Final Setomelanomma rostrata IgE Ab [Units/volume] in Serum 11/21/2024 11:51:12 <0.10 <0.10 (kUa/L) Final Pullularia IgE 11/21/2024 11:51:12 <0.10 <0.10 (kUa/L) Final Acremonium sp IgE Ab [Units/volume] in Serum 11/21/2024 11:51:12 <0.10 <0.10 (kUa/L) Final Maple IgE Ab [Units/volume] in Serum 11/21/2024 11:51:12 0.11 <0.10 (kUa/L) Final Silver Birch IgE Ab [Units/volume] in Serum 11/21/2024 11:51:12 <0.10 <0.10 (kUa/L) Final Piggott IgE 11/21/2024 11:51:12 <0.10 <0.10 (kUa/L) Final Elm IgE 11/21/2024 11:51:12 0.21 <0.10 (kUa/L) Final Sealy tree IgE 11/21/2024 11:51:12 <0.10 <0.10 (kUa/L) Final Woonsocket IgE 11/21/2024 11:51:12 <0.10 <0.10 (kUa/L) Final White Dez IgE 11/21/2024 11:51:12 <0.10 <0.10 (kUa/L) Final Pecan or Erie Tree IgE 11/21/2024 11:51:12 <0.10 <0.10 (kUa/L) Final Common ragweed mille lacs (nAmb a) 1 IgE Ab [Units/volume] in Serum 11/21/2024 11:51:12 <0.10 <0.10 (kUa/L) Final Mugwort IgE 11/21/2024 11:51:12 0.44 Abnormal <0.10 (kUa/L) Final Plaintain (Luxembourgish) IgE 11/21/2024 11:51:12 <0.10 <0.10 (kUa/L) Final Hodge's Quarters IgE 11/21/2024 11:51:12 0.30 <0.10 (kUa/L) Final Cocklebur IgE Ab [Units/volume] in Serum 11/21/2024 11:51:12 <0.10 <0.10 (kUa/L) Final Pigweed common IgE 11/21/2024 11:51:12 0.27 <0.10 (kUa/L) Final Sheep sorrel IgE 11/21/2024 11:51:12 <0.10 <0.10 (kUa/L) Final
<0.10 kUa/L - Class 0 Allergen: Absence of Allergen Specific IgE
0.10-0.34 kUa/L - Class 0/1 Allergen: Low Level of Allergen Specific IgE
0.35-0.69 kUa/L - Class 1 Allergen: Low Level of Allergen Specific IgE
0.70-3.49 kUa/L - Class 2 Allergen: Moderate Level of Allergen Specific IgE
3.50-17.49 kUa/L - Class 3 Allergen: High Level of Allergen Specific IgE
17.5-49.99 kUa/L - Class 4 Allergen: Very High Level of Allergen Specific IgE
50.0-99.99 kUa/L - Class 5 Allergen: Very High Level of Allergen Specific IgE
>=100.0 kUa/L - Class 6 Allergen: Very High Level of Allergen Specific IgE Performing Location [facility] [place] [facility] [address] [facility] [address]
--- OUTSIDE RECORDS SUMMARY | 2024-11-29 10:37 | External Medical Summary | Summary of Care ---
Author Name Unknown Organization [facility] Address [address] [place] [address] Phone [phone] Care Team Providers Care Screen Making Technician Name Role Phone Akbar Daniel Primary Care Provider Reason for Visit * Reason Onset Date Comments Test Results 11/25/2024 NE RAST Encounter Details Date Type Department Care Team (Late st Contact Info) Description 11/25/2024 Telephone Pulmonary Medicine, [facility] 132 [facility] [place] [address] Keo [facility]mezcua MD [address] [facility] [address] Test Results (NE RAST) Allergies Active Allergy Reactions Criticality Noted Date [...] as of this encounter (statuses as of 11/25/2024) Medications LORAZEPAM 1 MG PO TABSIndications:Pt also [...] times a year. 07/17/20 23 Active Calcitonin ([place]) 200 UNIT/ACT Nasal Solution (Fortical)Indicati ons:Compression fracture of lumbar vertebra, unspecified lumbar vertebral level, initial encounter ([facility]) Administer 1 [place] into one nostril in the morning. alternate [...] Suspension (Flonase)Indicatio ns:Chronic nasal congestion Administer 1 [place] into each nostril in the morning and 1 [place] before bedtime. 15.8 mL 4 09/12/20 24 Active Albuterol Sulfate HFA 108 (90 Base) MCG/ACT Inhalation Aerosol SolutionIndication s:COPD, severity to be determined ([facility] [...] Respimat 2.5 MCG/ACT Inhalation Aerosol Solution (Tiotropium [place] Monohydrate) Inhale 2 Puffs by mouth in [...] as of this encounter (statuses as of 11/25/2024) Active Problems Problem Noted Date Diagnosed Date [...] as of this encounter (statuses as of 11/25/2024) Social History Tobacco Use Types Packs/Day Years [...] encounter Miscellaneous Notes * Telephone Encounter - Rosa Green LPN - 11/25/2024 12:50 PM EDT ----- Message from Keo Amezcua MD sent at 11/25/2024 12:34 PM EDT ----- [place] allergen panel 11/21/2024 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 Eosinophil count at 80 cells per micro L Chart note documented in this encounter Plan of Treatment Upcoming Encounters Date Type Department Care Team (Late st Contact Info) Description 11/28/2024 9:30 AM EDT Imaging [facility] [address] [facility] [place] [phone] 12/04/2024 9:30 AM EDT PulmDiagnostic Pulmonary Function Lab, [facility] [place] [address] [address], [address] 132 [facility] [place] [address] 12/10/2024 1:00 PM EDT Office Visit Otolaryngology [facility] [address] [place] [address] Amrik Hernandez PA-C [address] [place] [address] 12/25/2024 9:30 AM EDT Office Visit Pulmonary Medicine, [facility] [place] [address] Keo Amezcua MD [address] [place] [address] 01/01/2025 10:00 AM EDT Office Visit [facility] [address] [place] [address] Emani Parikh CRNP [address] [place] [address] 02/04/2025 11:40 AM EDT Office Visit [facility] [address] [place] [address] Emani Parikh CRNP [address] [place] [address] 08/18/2025 10:20 AM EST Office Visit [facility] [address] [place] [address] Akbar Daniel DO [address] [place] [address] Health Maintenance Due Date Last Done Comments DISCUSS TOBACCO CESSATION (REFER TO SMARTSET #0387) 1955 Depression Screening 1966 Albumin/Creatinine Ratio 1972 [...] D LEVEL ONCE IN A LIFETIME-USE SMARTSET# 39348 Completed 01/10/2024, 10/11/2023, 12/02/2021, Additional history exists [...] this encounter Medical Devices Implanted Type Area Property Site Manager Device Identifier Shelf Expiration Date Model / Serial / Lot Graft Marker Coronary - [id number] Implanted:Qty: 1 on 01/15/2012 at [place] [facility] N/A: Aorta VM CARDIO VASCULAR 04/16/2014 [id number] / / [id number] Sut Steel 6 M654g - [id number] Implanted:Qty: 6 on 01/15/2012 at OR [facility] N/A: Chest DO NOT USE 10/17/2016 M654G / / [id number] Sut Steel 6 M654g - [id number] Implanted:Qty: 2 on 01/15/2012 at OR [facility] N/A: Chest DO NOT USE 10/17/2016 M654G / / [id number] Graft Marker Coronary - [id number] Implanted:Qty: 1 on 01/15/2012 at OR [facility] N/A: Aorta VM CARDIO VASCULAR 08/16/2013 [id number] / / [id number] Lens Intraoc 15.5 - [id number] - [id number] Implanted:Qty: 1 on 10/21/2019 by Tay Acevedo MD at OR [facility] Left: Eye BAUSCH & LOMB 01/15/2024 [id number] / [id number] / Lens Intraoc 16.0 - [id number] - [id number] Implanted:Qty: 1 on 11/04/2019 by Tay Acevedo MD at OR [facility] Right: Eye BAUSCH & LOMB 05/17/2024 [id number] / [id number] / documented as of this encounter Advance Directives * Full Code (Latest Code Status on File) Date Activated Date Inactivated Comments 01/15/2012 3:49 PM 01/20/2012 4:10 PM This order re flects the patients wishes and were consensually agreed upon. Care Teams Screen Making Technician Relationship Specialty Start Date End Date Akbar Daniel DO [address] [place] [address] PCP - General Family Medicine 08/22/22 documented as of this encounter
--- OUTSIDE RECORDS SUMMARY | 2024-11-29 10:37 | External Medical Summary | Summary of Care ---
Author Name Unknown Organization [facility] Address [address] [place] [address] Phone [phone] Care Team Providers Care Street Light Inspector Name Role Phone Akbar Daniel DO Primary Care Provider Reason for Visit * Reason Onset Date Comments Order Request 11/19/2024 Encounter Details Date Type Department Care Team (Late st Contact Info) Description 11/19/2024 Telephone Family Practice [facility] [address] [facility] [place] [address] Akbar Daniel DO [address] [facility] [place] [address] Order Request Allergies [...] times a year. 07/17/20 23 Active Calcitonin ([place]) 200 UNIT/ACT Nasal Solution (Fortical)Indicati ons:Compression fracture of lumbar vertebra, unspecified lumbar vertebral level, initial encounter ([facility]) Administer 1 [place] into one nostril in the morning. alternate [...] Suspension (Flonase)Indicatio ns:Chronic nasal congestion Administer 1 [place] into each nostril in the morning and 1 [place] before bedtime. 15.8 mL 4 09/12/20 24 Active Albuterol Sulfate HFA 108 (90 Base) MCG/ACT Inhalation Aerosol SolutionIndication s:COPD, severity to be determined ([facility]) INHALE 2 PUFFS BY MOUTH EVERY 4 [...] Respimat 2.5 MCG/ACT Inhalation Aerosol Solution (Tiotropium [place] Monohydrate) Inhale 2 Puffs by mouth in [...] encounter Miscellaneous Notes * Telephone Encounter - Kisha Bentley CMA - 11/25/2024 1:08 PM EDT Faxed order to [facility] and received confirmation it went through. * Telephone Encounter - Emani Parikh CRNP [...] Description 11/28/2024 9:30 AM EDT Imaging Radiology [facility] 1st Floor, [place] [address] [place] [id number] 12/04/2024 9:30 AM EDT PulmDiagnostic Pulmonary Function Lab, [facility] [place] [address] [address], [address] [facility] [place] [address] 12/10/2024 1:00 PM EDT Office Visit Otolaryngology [facility] 132 [facility] [place] [address] Amrik Hernandez PA-C 132 [facility] [place] [address] 12/25/2024 9:30 AM EDT Office Visit Pulmonary Medicine, [facility] [address] [facility] [place] [address] Keo Amezcua MD [address] [place] [address] 01/01/2025 10:00 AM EDT Office Visit Family [facility] [address] [place] [address] Emani Parikh CRNP [address] [place] [address] 02/04/2025 11:40 AM EDT Office Visit [facility] [address] [place] [address] Emani Parikh CRNP [address] [place] [address] 08/18/2025 10:20 AM EST Office Visit [facility] [address] [place] [address] Akbar Daniel DO [address] [place] [address] Health Maintenance Due Date Last Done Comments DISCUSS TOBACCO CESSATION (REFER TO SMARTSET #4959) 1955 Depression Screening 1966 Albumin/Creatinine Ratio 1972 [...] D LEVEL ONCE IN A LIFETIME-USE SMARTSET# 28432 Completed 01/10/2024, 10/11/2023, 12/02/2021, Additional history exists [...] this encounter Medical Devices Implanted Type Area Ticket Agent Device Identifier Shelf Expiration Date Model / Serial / Lot Graft Marker Coronary - [id number] Implanted:Qty: 1 on 01/15/2012 at OR [facility] N/A: Aorta VM CARDIO VASCULAR 04/16/2014 [id number] / / [id number] Sut Steel 6 M654g - [id number] Implanted:Qty: 6 on 01/15/2012 at OR [facility] N/A: Chest DO NOT USE 10/17/2016 M654G / / [id number] Sut Steel 6 M654g - [id number] Implanted:Qty: 2 on 01/15/2012 at OR [facility] N/A: Chest DO NOT USE 10/17/2016 M654G / / [id number] Graft Marker Coronary - [id number] Implanted:Qty: 1 on 01/15/2012 at OR [facility] N/A: Aorta VM CARDIO VASCULAR 08/16/2013 [id number] / / [id number] Lens Intraoc 15.5 - [id number] - [id number] Implanted:Qty: 1 on 10/21/2019 by Tay Acevedo MD at OR [facility] Left: Eye BAUSCH & LOMB 01/15/2024 [id number] / [id number] / Lens Intraoc 16.0 - [id number] - [id number] Implanted:Qty: 1 on 11/04/2019 by Tay Acevedo MD at OR [facility] Right: Eye BAUSCH & LOMB 05/17/2024 [id number] / [id number] / documented as of this encounter Visit Diagnoses Diagnosis Hospital discharge follow-up- Primary Other follow-up examination Mixed incontinence Mixed incontinence urge and stress (male)(female) documented in this encounter Advance Directives * Full Code (Latest Code Status on File) Date Activated Date Inactivated Comments 01/15/2012 3:49 PM 01/20/2012 4:10 PM This order re flects the patients wishes and were consensually agreed upon. Care Teams Street Light Inspector Relationship Specialty Start Date End Date Akbar Daniel DO [address] [place] [address] PCP - General Family Medicine 08/22/22 documented as of this encounter
--- OUTSIDE RECORDS SUMMARY | 2024-11-29 10:37 | External Medical Summary | Summary of Care ---
Author Name Unknown Organization [facility] Address [address] [place] [address] Phone [phone] Care Team Providers Care Tone Artist Apprentice Name Role Phone Akbar Daniel Primary Care Provider Encounter Details Date Type Department Care Team (Late st Contact Info) Description 11/20/2024 Orders Only PATIENT PORTAL DO NOT DELETE THIS DEPT USED BY [place] [id number] Allergies Active Allergy Reactions Criticality Noted Date [...] as of this encounter (statuses as of 11/20/2024) Medications LORAZEPAM 1 MG PO TABSIndications:Pt also [...] times a year. 07/17/20 23 Active Calcitonin ([place]) 200 UNIT/ACT Nasal Solution (Fortical)Indicati ons:Compression fracture of lumbar vertebra, unspecified lumbar vertebral level, initial encounter ([facility]) Administer 1 [place] into one nostril in the morning. alternate [...] Suspension (Flonase)Indicatio ns:Chronic nasal congestion Administer 1 [place] into each nostril in the morning and 1 [place] before bedtime. 15.8 mL 4 09/12/20 24 Active Albuterol Sulfate HFA 108 (90 Base) MCG/ACT Inhalation Aerosol SolutionIndication s:COPD, severity to be determined ([facility]) INHALE 2 PUFFS BY MOUTH EVERY [...] Respimat 2.5 MCG/ACT Inhalation Aerosol Solution (Tiotropium [place] Monohydrate) Inhale 2 Puffs by mouth in [...] as of this encounter (statuses as of 11/20/2024) Active Problems Problem Noted Date Diagnosed Date [...] as of this encounter (statuses as of 11/20/2024) Social History Tobacco Use Types Packs/Day Years [...] 9:30 AM EDT PulmDiagnostic Pulmonary Function Lab, [facility] 132 [facility] [place] [address] [address], [address] [facility] [place] [address] 12/04/2024 10:00 AM EDT PulmDiagnostic Pulmonary Function Lab, [facility] [place] [address] [address], [address] 132 [facility] [place] [address] 12/10/2024 1:00 PM EDT Office Visit [facility]ol[facility] 132 [facility] [place] [address] Amrik Hernandez PA-C [address] [place] [address] 12/25/2024 9:30 AM EDT Office Visit Pulmonary Medicine, [facility] [address] [facility] [place] [address] Keo Amezcua MD [address] [place] [address] 01/01/2025 10:00 AM EDT Office Visit [facility] [address] [place] [address] Emani Parikh CRNP [address] [place] [address] 02/04/2025 11:40 AM EDT Office Visit [facility] [address] [place] [address] Emani Parikh CRNP [address] [place] [address] 08/18/2025 10:20 AM EST Office Visit [facility] [address] [place] [address] Akbar Daniel, [address] [place] [address] Health Maintenance Due Date Last Done Comments DISCUSS TOBACCO CESSATION (REFER TO SMARTSET #6087) 1955 Depression Screening 1966 Albumin/Creatinine Ratio 1972 [...] D LEVEL ONCE IN A LIFETIME-USE SMARTSET# 93334 Completed 01/10/2024, 10/11/2023, 12/02/2021, Additional history exists [...] this encounter Medical Devices Implanted Type Area Shear Tender Device Identifier Shelf Expiration Date Model / Serial / Lot Graft Marker Coronary - [id number] Implanted:Qty: 1 on 01/15/2012 at OR [facility] N/A: Aorta VM CARDIO VASCULAR 04/16/2014 [id number] / / [id number] Sut Steel 6 M654g - [id number] Implanted:Qty: 6 on 01/15/2012 at OR [facility] N/A: Chest DO NOT USE 10/17/2016 M654G / / [id number] Sut Steel 6 M654g - [id number] Implanted:Qty: 2 on 01/15/2012 at OR [facility] N/A: Chest DO NOT USE 10/17/2016 M654G / / [id number] Graft Marker Coronary - [id number] Implanted:Qty: 1 on 01/15/2012 at OR [facility] N/A: Aorta VM CARDIO VASCULAR 08/16/2013 [id number] / / [id number] Lens Intraoc 15.5 - [id number] - [id number] Implanted:Qty: 1 on 10/21/2019 by Tay Acevedo MD at OR [facility] Left: Eye BAUSCH & LOMB 01/15/2024 [id number] / [id number] / Lens Intraoc 16.0 - [id number] - [id number] Implanted:Qty: 1 on 11/04/2019 by Tay Acevedo MD at OR [facility] Right: Eye BAUSCH & LOMB 05/17/2024 [id number] / [id number] / documented as of this encounter Advance Directives * Full Code (Latest Code Status on File) Date Activated Date Inactivated Comments 01/15/2012 3:49 PM 01/20/2012 4:10 PM This order re flects the patients wishes and were consensually agreed upon. Care Teams Tone Artist Apprentice Relationship Specialty Start Date End Date Akbar Daniel DO [address] [place] [address] PCP - General Family Medicine 08/22/22 documented as of this encounter
--- OUTSIDE RECORDS SUMMARY | 2024-11-29 10:37 | External Medical Summary ---
Author Name Unknown Address Unknown Organization K0G[facility] [place] [address] Laboratory Report Ordering Provider Test Date Status JUAN HERRING 11/21/2024 11:51:12 Final Observation Date Value Abnormality Reference (Units ) Status WBC, Total 11/21/2024 11:51:12 9.14 4.00-10.8 0 (K/uL) Final RBC 11/21/2024 11:51:12 4.53 3.85-5.15 (M/uL) Final Hemoglobin 11/21/2024 11:51:12 14.8 12.0-15.3 (g/dL) Final HCT 11/21/2024 11:51:12 45.4 Above high normal 36 .0-45.2 (%) Final MCV 11/21/2024 11:51:12 100.2 81.5-97.5 (fL) Final MCH 11/21/2024 11:51:12 32.7 27.0-34.0 (pg) Final MCHC 11/21/2024 11:51:12 32.6 32.0-36.0 (g/dL) Final RDW 11/21/2024 11:51:12 14.6 11.5-15.5 (%) Final Platelets 11/21/2024 11:51:12 211 140-400 (K /uL) Final MPV 11/21/2024 11:51:12 10.7 6.6-11.1 ( fL) Final Performing Location [facility] [address] [place] [address]
--- OUTSIDE RECORDS SUMMARY | 2024-11-29 10:37 | External Medical Summary | Summary of Care ---
Author Name Unknown Organization [facility] Address [address] [place] [address] Phone [phone] Care Team Providers Care Electric Shaver Mechanic Name Role Phone Mallorie Danielranda Castellanosrazia Primary Care Provider Reason for Visit * Reason Comments Outpatient Testing Encounter Details Date Type Department Care Team (Late st Contact Info) Description 11/21/2024 11:50 AM EST Laboratory Laboratory, [facility] [address] [place] [address] [facility] [address] [place] [address] COPD, severity to be determined (HCC); Chronic respiratory failure, unspecified whether with hypoxia or hypercapnia (HCC); Seasonal allergic rhinitis, unspecified trigger Allergies Active Allergy Reactions Criticality Noted Date [...] times a year. 07/17/20 23 Active Calcitonin ([place]) 200 UNIT/ACT Nasal Solution (Fortical)Indicati ons:Compression fracture of lumbar vertebra, unspecified lumbar vertebral level, initial encounter ([facility]) Administer 1 [place] into one nostril in the morning. alternate [...] Suspension (Flonase)Indicatio ns:Chronic nasal congestion Administer 1 [place] into each nostril in the morning and 1 [place] before bedtime. 15.8 mL 4 09/12/20 24 Active Albuterol Sulfate HFA 108 (90 Base) MCG/ACT Inhalation Aerosol SolutionIndication s:COPD, severity to be determined ([facility]) INHALE 2 PUFFS BY MOUTH [...] 180 Blister Dosing Unit 3 11/19/19 25 02/27/2 026 Active Spiriva Respimat 2.5 MCG/ACT Inhalation Aerosol Solution (Tiotropium [place] Monohydrate) Inhale 2 Puffs by mouth in the morning. 4 g 11 11/19/19 25 Active Hospital, Clinic, or Other Facility [...] 09/26/1967 Smokeless Tobacco: Never Comments:Occasionally uses e -cigarettes.2 ppd smoker. 11/18/24. Alcohol Use Standard Drinks/Week [...] Description 11/28/2024 9:30 AM EDT Imaging Radiology [facility] 1st [facility] 132 [facility] [place] [id number] 12/04/2024 9:30 AM EDT PulmDiagnostic Pulmonary Function Lab, [facility] 132 [facility] [place] [address] [address], [address] 132 [facility] [place] [address] 12/04/2024 10:00 AM EDT PulmDiagnostic Pulmonary Function Lab, [facility] [address] [place] [address] [address], [address] [place] [address] 12/10/2024 1:00 PM EDT Office Visit Otolaryngology [facility] [address] [place] [address] Amrik Hernandez PA-C [address] [place] [address] 12/25/2024 9:30 AM EDT Office Visit Pulmonary Medicine, [facility] 132 [facility] [place] [address] Keo Amezcua MD [address] [place] [address] 01/01/2025 10:00 AM EDT Office Visit [facility] [place] [address] Emani Parikh CRNP [address] [place] [address] 02/04/2025 11:40 AM EDT Office Visit [facility] [address] [place] [place] [address] Emani Parikh CRNP [address] [place] [address] 08/18/2025 10:20 AM EST Office Visit [facility] 132 [facility] [place] [address] Akbar Daniel DO [address] [place] [address] Pending Results Name Type Priority Associated Diagnoses Date /Time [facility] PROFILE Lab Routine COPD, severity to be determined (HCC) Chronic respiratory failure, unspecified whether with hypoxia or hypercapnia (HCC) Seasonal allergic rhinitis, unspecified trigger 11/21/2024 11:51 AM EST Health Maintenance Due Date Last Done Comments DISCUSS TOBACCO CESSATION (REFER TO SMARTSET #3291) 1955 Depression Screening 1966 Albumin/Creatinine Ratio 1972 [...] D LEVEL ONCE IN A LIFETIME-USE SMARTSET# 98876 Completed 01/10/2024, 10/11/2023, 12/02/2021, Additional history exists [...] this encounter Medical Devices Implanted Type Area Grill Prep Cook Device Identifier Shelf Expiration Date Model / Serial / Lot Graft Marker Coronary - [id number] Implanted:Qty: 1 on 01/15/2012 at OR [facility] N/A: Aorta VM CARDIO VASCULAR 04/16/2014 [id number] / / [id number] Sut Steel 6 M654g - [id number] Implanted:Qty: 6 on 01/15/2012 at OR [facility] N/A: Chest DO NOT USE 10/17/2016 M654G / / [id number] Sut Steel 6 M654g - [id number] Implanted:Qty: 2 on 01/15/2012 at OR [facility] N/A: Chest DO NOT USE 10/17/2016 M654G / / [id number] Graft Marker Coronary - [id number] Implanted:Qty: 1 on 01/15/2012 at OR [facility] N/A: Aorta VM CARDIO VASCULAR 08/16/2013 [id number] / / [id number] Lens Intraoc 15.5 - [id number] - [id number] Implanted:Qty: 1 on 10/21/2019 by Tay Acevedo MD at OR [facility] Left: Eye BAUSCH & LOMB 01/15/2024 [id number] / [id number] / Lens Intraoc 16.0 - [id number] - [id number] Implanted:Qty: 1 on 11/04/2019 by Tay Acevedo MD at OR [facility] Right: Eye BAUSCH & LOMB 05/17/2024 [id number] / [id number] / documented as of this encounter Procedures Procedure Name Priority Date/Time Associated Diagnosis Comments DIFFERENTIAL, AUTOMATED Routine 11/21/2024 11:51 AM EST COPD, severity to be determined (HCC) Chronic respiratory failure, unspecified whether with hypoxia or hypercapnia (HCC) Seasonal allergic rhinitis, unspecified trigger CBC Routine 11/21/2024 11:51 AM EST COPD, severity to be determined (HCC) Chronic respiratory failure, unspecified whether with hypoxia or hypercapnia (HCC) Seasonal allergic rhinitis, unspecified trigger CBC Routine 11/21/2024 11:51 AM EST COPD, severity to be determined (HCC) Chronic respiratory failure, unspecified whether with hypoxia or hypercapnia (HCC) Seasonal allergic rhinitis, unspecified trigger documented in this encounter Results * DIFFERENTIAL, AUTOMATED (11/21/2024 11:51 AM EST) WBC 9.14 4.00 - 10.80 K/uL 11/21/2024 12:26 PM EST [facility] [place] [facility] Neutrophils % 63.8 40.0 - 75.0 % 11/21/2024 12:26 PM EST [facility] [place] [facility] Lymphocytes % 27.9 18.0 - 42.0 % 11/21/2024 12:26 PM EST [facility] [place] [facility] Monocytes % 7.2 1.0 - 11.0 % 11/21/2024 12:26 PM EST [facility] [place] [facility] Eosinophils % 0.9 0.0 - 6.0 % 11/21/2024 12:26 PM EST [facility] [place] [facility] Basophils % 0.2 0.0 - 2.0 % 11/21/2024 12:26 PM EST [facility] [place] [facility] Absolute Neutrophils 5.83 1.80 - 7.70 K/uL 11/21/2024 12:26 PM EST [facility] [place] [facility] Absolute Lymphocytes 2.55 1.00 - 4.80 K/ul 11/21/2024 12:26 PM EST [facility] [place] [facility] Absolute Monocytes 0.66 0.00 - 1.10 K/uL 11/21/2024 12:26 PM EST [facility] [place] [facility] Absolute Eosinophils 0.08 0.00 - 0.70 K/uL 11/21/2024 12:26 PM EST [facility] [place] [facility] Absolute Basophils 0.02 0.00 - 0.20 K/uL 11/21/2024 12:26 PM EST [facility] [place] [facility] Blood Venous blood specimen / Unknown Venipuncture / Unknown 11/21/2024 11:51 AM EST 11/21/2024 11:51 AM EST us Bart Hadley PA-C LAB BLOOD ORDERABLES Final Result [facility] [place] [facility] 132 [facility] [place] [address] * (ABNORMAL) CBC (11/21/2024 11:51 AM EST) WBC 9.14 4.00 - 10.80 K/uL 11/21/2024 12:26 PM EST [facility] [place] [facility] RBC 4.53 3.85 - 5.15 M/uL 11/21/2024 12:26 PM EST [facility] [place] [facility] HGB 14.8 12.0 - 15.3 g/dL 11/21/2024 12:26 PM EST [facility] [place] [facility] HCT 45.4(H) 36.0 - 45.2 % 11/21/2024 12:26 PM EST [facility] [place] [facility] MCV 100.2 81.5 - 97.5 fL 11/21/2024 12:26 PM EST [facility] [place] [facility] MCH 32.7 27.0 - 34.0 pg 11/21/2024 12:26 PM EST [facility] [place] [facility] MCHC 32.6 32.0 - 36.0 g/dL 11/21/2024 12:26 PM EST [facility] [place] [facility] RDW 14.6 11.5 - 15.5 % 11/21/2024 12:26 PM EST [facility] [place] [facility] PLT 211 140 - 400 K/uL 11/21/2024 12:26 PM EST [facility] [place] [facility] MPV 10.7 6.6 - 11.1 fL 11/21/2024 12:26 PM EST [facility] [place] [facility] Blood Venous blood specimen / Unknown Venipuncture / Unknown 11/21/2024 11:51 AM EST 11/21/2024 11:51 AM EST us Bart Hadley PA-C LAB BLOOD ORDERABLES Final Result [facility] [place] [address] documented in this encounter Visit Diagnoses Diagnosis COPD, severity to be determined (HCC) Chronic airway obstruction, not elsewhere classified Chronic respiratory failure, unspecified whether with hypoxia or hypercapnia (HCC) Seasonal allergic rhinitis, unspecified trigger documented in this encounter Advance Directives * Full Code (Latest Code Status on File) Date Activated Date Inactivated Comments 01/15/2012 3:49 PM 01/20/2012 4:10 PM This order re flects the patients wishes and were consensually agreed upon. Care Teams Electric Shaver Mechanic Relationship Specialty Start Date End Date Akbar Daniel DO [address] [place] [address] PCP - General Family Medicine 08/22/22 documented as of this encounter
--- OUTSIDE RECORDS SUMMARY | 2024-11-29 10:38 | External Medical Summary | Summary of Care ---
Author Name Unknown Organization [facility] Address [address] [place] [address] Phone [phone] Care Team Providers Care Hydroelectric Operator Name Role Phone Akbar Daniel DO Primary Care Provider Reason for Visit * Reason Onset Date Comments Advice 10/27/2024 Encounter Details Date Type Department Care Team (Late st Contact Info) Description 10/27/2024 Telephone Family Practice [facility] [address] [facility] [address] Akbar Daniel DO [address] [employer] [facility] [place] [address] Advice Allergies Active Allergy [...] as of this encounter (statuses as of 11/04/2024) Medications LORAZEPAM 1 MG PO TABSIndications:Pt also taking 1 tab in evening. Take 1 Tablet by mouth in the morning and 1 Tablet at noon and 1 Tablet before bedtime. Active NITROGLYCERIN 0.4 MG SL SUBLIndications:Ch ronic coronary artery disease,S/P coronary artery bypass with four autogenous grafts as needed 25 Tab 5 2 Active Eliquis 5 MG Oral Tablet Take 1 Tablet by mouth in the morning and 1 Tablet before bedtime. 2 Active Pravastatin Sodium 40 MG Oral Tablet (Pravachol)Indicat ions:Coronary artery disease involving autologous vein coronary bypass graft without angina pectoris TAKE 1 TABLET BY MOUTH EVERYDAY AT BEDTIME 90 Tablet 3 4 Active Iron Dextran 50 MG/ML Injection Solution (Infed) Administer 50 mg intravenously. Receives infusions for 3 weeks, three times a year. 3 Active Calcitonin ([place]) 200 UNIT/ACT Nasal Solution (Fortical)Indicati ons:Compression fracture of lumbar vertebra, unspecified lumbar vertebral level, initial encounter ([facility]) Administer 1 [place] into one nostril in the morning. alternate nostrils.. 3 mL 11 4 Active Omeprazole 40 MG Oral Capsule Delayed Release (PriLOSEC)Indicati ons:GERD (gastroesophageal reflux disease) TAKE 1 CAPSULE BY MOUTH IN THE MORNING AND BEFORE BEDTIME 180 Capsule 1 4 Active Gabapentin 400 MG Oral Capsule (Neurontin) Take 1 Capsule by mouth in the morning and 1 Capsule at noon and 1 Capsule before bedtime. 4 Active Fluticasone Propionate 50 MCG/ACT Nasal Suspension (Flonase)Indicatio ns:Chronic nasal congestion Administer 1 [place] into each nostril in the morning and 1 [place] before bedtime. 15.8 mL 4 4 Active Albuterol Sulfate HFA 108 (90 Base) MCG/ACT Inhalation Aerosol SolutionIndication s:COPD, severity to be determined ([facility]) INHALE 2 PUFFS BY MOUTH EVERY 4 HOURS NEEDED FOR SHORTNESS OF BREATH 18 g 3 5 Active hydrALAZINE HCl 25 MG Oral Tablet (Apresoline) Take 1 Tablet by mouth in the morning and 1 Tablet at noon and 1 Tablet before bedtime. 270 Tablet 3 5 Active amLODIPine Besylate 5 MG Oral Tablet (Norvasc) Take 1 Tablet by mouth in the morning and 1 Tablet before bedtime. 180 Tablet 3 5 Active Potassium Chloride Stephanie ER 20 MEQ Oral Tablet Extended Release Take 1 Tablet by mouth in the morning. 90 Tablet 5 Active Spironolactone 25 MG Oral Tablet (Aldactone) Take 1 Tablet by mouth in the morning. 90 Tablet 5 Active Ondansetron 8 MG Oral Tablet Disintegrating (Zofran) 1 Tablet every 8 hours as needed. 5 Active Ondansetron HCl 4 MG Oral Tablet (Zofran) Take 1 Tablet by mouth every 8 hours as needed for Nausea. 5 Active Losartan Potassium 100 MG Oral Tablet (Cozaar) Take 0.5 Tablets by mouth in the morning. 5 Active Metoprolol Succinate ER 25 MG Oral Tablet Extended Release 24 Hour (toPROL XL) Take 1 Tablet by mouth every evening. 5 Active Vancomycin HCl 125 MG Oral Capsule (Vancocin) Take 1 Capsule by mouth every 6 hours. 5 025 Active Metoprolol Succinate ER 50 MG Oral Tablet Extended Release 24 Hour (toPROL XL) Take 1 Tablet by mouth in the morning. 5 Active Incruse Ellipta 62.5 MCG/ACT Inhalation Aerosol Powder Breath Activated (umeclidinium [place]) Inhale 1 Puff by mouth in the morning. Active Fluticasone Furoate-Vilanterol 100-25 MCG/ACT Inhalation Aerosol Powder Breath Activated (BREO ellipta) Inhale 1 Puff by mouth in the morning. Active Hospital, Clinic, or Other Facility Administered Medication Ordered Dose Route Frequency Start Date End Date Status Albuterol Sulfate (Proventil) (2.5 MG/3ML) 0.083% inhalation solution 2.5 mgIndications:COPD, severity to be determined ([facility]) 2.5 mg NEBULIZER ONCE PRN 10/01/2024 10/01/2025 Active documented as of this encounter (statuses as of 11/04/2024) Active Problems Problem Noted Date Diagnosed Date [...] as of this encounter (statuses as of 11/04/2024) Social History Tobacco Use Types Packs/Day Years [...] Telephone Encounter - Mago Tineo LPN - 11/04/2024 12:45 PM EST Pt seen E Rhed today in clinic for HD appt * Telephone Encounter - Ursula Lozano OSA - 10/27/2024 1:16 PM EST Good Afternoon, Estelita from [facility] called to give update on mutual patient. Estelita stated that patient had been hospitalized and there have been many med adjustments made with her blood pressure meds, but the BP is elevated now. Please give her a call back at [phone]. Thank you. DEANDRA Burks documented in this encounter Plan of Treatment Upcoming Encounters Date Type Department Care Team (Late st Contact Info) Description 12/10/2024 1:00 PM EDT Office Visit Otolaryngology [facility] [address] [place] [address] Amrik Hernandez PA-C [address] [place] [address] 01/01/2025 10:00 AM EDT [facility] Visit [facility] [address] [place] [address] Emani Parikh CRNP [address] [place] [address] 02/04/2025 11:40 AM EDT Office Visit [facility] [address] [place] [address] Emani Parikh CRNP [address] [place] [address] 08/18/2025 10:20 AM EST Office Visit [facility] [address] [place] [address] Akbar Daniel, DO [address] [place] [address] Health Maintenance Due Date Last Done Comments DISCUSS TOBACCO CESSATION (REFER TO SMARTSET #4298) 1955 Depression Screening 1966 Albumin/Creatinine Ratio 1972 [...] ASSESSMENT COMPLETED IN PAST YEAR FOR COPD 11/04/2025 11/04/2024 Colonoscopy 11/06/2032 11/06/2022, 03/02/2022 Colorectal Cancer Screening 11/06/2032 Lung Cancer Screening Completed 01/03/2012 VITAMIN D LEVEL ONCE IN A LIFETIME-USE SMARTSET# 70454 Completed 01/10/2024, 10/11/2023, 12/02/2021, Additional history exists [...] this encounter Medical Devices Implanted Type Area Sample Prep Technician Device Identifier Shelf Expiration Date Model / Serial / Lot Graft Marker Coronary - [id number] Implanted:Qty: 1 on 01/15/2012 at [place] [facility] [place] N/A: Aorta VM CARDIO VASCULAR 04/16/2014 [id number] / / [id number] Sut Steel 6 M654g - [id number] Implanted:Qty: 6 on 01/15/2012 at OR [facility] [place] N/A: Chest DO NOT USE 10/17/2016 M654G / / [id number] Sut Steel 6 M654g - [id number] Implanted:Qty: 2 on 01/15/2012 at OR [facility] [place] N/A: Chest DO NOT USE 10/17/2016 M654G / / [id number] Graft Marker Coronary - [id number] Implanted:Qty: 1 on 01/15/2012 at OR [facility] [place] N/A: Aorta VM CARDIO VASCULAR 08/16/2013 [id number] / / [id number] Lens Intraoc 15.5 - [id number] - [id number] Implanted:Qty: 1 on 10/21/2019 by Tay Acevedo MD at OR [facility] Left: Eye BAUSCH & LOMB 01/15/2024 [id number] / [id number] / Lens Intraoc 16.0 - [id number] - [id number] Implanted:Qty: 1 on 11/04/2019 by Tay Acevedo MD at OR [facility] Right: Eye BAUSCH & LOMB 05/17/2024 [id number] / [id number] / documented as of this encounter Advance Directives * Full Code (Latest Code Status on File) Date Activated Date Inactivated Comments 01/15/2012 3:49 PM 01/20/2012 4:10 PM This order re flects the patients wishes and were consensually agreed upon. Care Teams Hydroelectric Operator Relationship Specialty Start Date End Date Akbar Daniel DO [address] [place] [address] [place] [address] PCP - General Family Medicine 08/22/22 documented as of this encounter
--- OUTSIDE RECORDS SUMMARY | 2024-11-29 10:38 | External Medical Summary | Summary of Care ---
Author Name Unknown Organization [facility] [address] [facility] [address] Phone [phone] Care Team Providers Care Date Pitter Name Role Phone Akbar Daniel DO Primary Care Provider Encounter Details Date Type Department Care Team (Late st Contact Info) Description 10/23/2024 Orders Only Family Practice [facility] [address] [place] [address] Akbar Daniel DO [address] [place] [address] Allergies Active Allergy Reactions Criticality Noted Date [...] as of this encounter (statuses as of 10/23/2024) Medications LORAZEPAM 1 MG PO TABSIndications:Pt also [...] times a year. 07/17/20 23 Active Calcitonin ([place]) 200 UNIT/ACT Nasal Solution (Fortical)Indicati ons:Compression fracture of lumbar vertebra, unspecified lumbar vertebral level, initial encounter ([facility]) Administer 1 [place] into one nostril in the morning. alternate [...] (Flonase)Indicatio ns:Chronic nasal congestion Administer 1 [place] into each nostril in the morning and 1 [place] before bedtime. 15.8 mL 4 09/12/20 24 Active Albuterol Sulfate HFA 108 (90 Base) MCG/ACT Inhalation Aerosol SolutionIndication s:COPD, severity to be determined ([facility]) INHALE 2 PUFFS BY MOUTH [...] (heart failure with reduced ejection fraction) ([facility]) Take 2 Tablets by mouth in the morning. 180 Tablet 3 10/21/19 25 Active Hospital, Clinic, or Other Facility Administered Medication Ordered Dose Route Frequency Start Date End Date Status Albuterol Sulfate (Proventil) (2.5 MG/3ML) 0.083% inhalation solution 2.5 mgIndications:COPD, severity to be determined ([facility]) 2.5 mg NEBULIZER ONCE PRN 10/01/2024 10/01/2025 Active documented as of this encounter (statuses as of 10/23/2024) Active Problems Problem Noted Date Diagnosed Date [...] as of this encounter (statuses as of 10/23/2024) Social History Tobacco Use Types Packs/Day Years [...] 12/10/2024 1:00 PM EDT Office Visit Otolaryngology [facility] [address] [place] [address] Amrik Hernandez PA-C [address] [place] [address] 01/01/2025 10:00 AM EDT Office Visit [facility] [address] [place] [address] Emani Parikh CRNP [address] [place] [address] 02/04/2025 11:40 AM EDT Office Visit [facility] [address] [place] [address] Emani Parikh CRNP [address] [place] [address] 08/18/2025 10:20 AM EST Office Visit [facility] [address] [place] [address] Akbar Daniel DO [address] [place] [address] Health Maintenance Due Date Last Done Comments DISCUSS TOBACCO CESSATION (REFER TO SMARTSET #1066) 1955 Depression Screening 1966 Albumin/Creatinine Ratio 1972 [...] D LEVEL ONCE IN A LIFETIME-USE SMARTSET# 18058 Completed 01/10/2024, 10/11/2023, 12/02/2021, Additional history exists [...] this encounter Medical Devices Implanted Type Area Commercial Subcontractor Device Identifier Shelf Expiration Date Model / Serial / Lot Graft Marker Coronary - [id number] Implanted:Qty: 1 on 01/15/2012 [place] [facility] [place] Aorta VM CARDIO VASCULAR 04/16/2014 [id number] / / [id number] Sut Steel 6 M654g - [id number] Implanted:Qty: 6 on 01/15/2012 [place] [facility]: Chest DO NOT USE 10/17/2016 M654G / / [id number] Sut Steel 6 M654g - [id number] Implanted:Qty: 2 on 01/15/2012 [place] [facility] [place]: Chest DO NOT USE 10/17/2016 M654G / / [id number] Graft Marker Coronary - [id number] Implanted:Qty: 1 on 01/15/2012 [place] [facility] [place]: Aorta VM CARDIO VASCULAR 08/16/2013 [id number] / / [id number] Lens Intraoc 15.5 - [id number] - [id number] Implanted:Qty: 1 on 10/21/2019 by Tay Acevedo MD at OR [facility] Left: Eye BAUSCH & LOMB 01/15/2024 [id number] / [id number] / Lens Intraoc 16.0 - [id number] - [id number] Implanted:Qty: 1 on 11/04/2019 by Tay Acevedo MD at OR [facility] Right: Eye BAUSCH & LOMB 05/17/2024 [id number] / [id number] / documented as of this encounter Advance Directives * Full Code (Latest Code Status on File) Date Activated Date Inactivated Comments 01/15/2012 3:49 PM 01/20/2012 4:10 PM This order re flects the patients wishes and were consensually agreed upon. Care Teams Date Pitter Relationship Specialty Start Date End Date Akbar Daniel DO [address] [place] [address] PCP - General Family Medicine 08/22/22 documented as of this encounter
--- OUTSIDE RECORDS SUMMARY | 2024-11-29 10:38 | External Medical Summary | Summary of Care ---
Author Name Unknown Organization [facility] Address [address] [place] [address] Phone [phone] Care Team Providers Care Plate Grainer Name Role Phone Akbar Daniel DO Primary Care Provider Reason for Visit * Reason Onset Date Comments Referral 11/04/2024 Encounter Details Date Type Department Care Team (Late st Contact Info) Description 11/04/2024 Telephone Family Practice [facility] [address] [facility] [address] Akbar Daniel DO [address] [facility] [address] Referral Allergies Active Allergy Reactions Criticality Noted Date [...] three times a year. 3 Active Calcitonin ([place]) 200 UNIT/ACT Nasal Solution (Fortical)Indicati ons:Compression fracture of lumbar vertebra, unspecified lumbar vertebral level, initial encounter ([facility]) Administer 1 [place] into one nostril in the morning. alternate [...] Suspension (Flonase)Indicatio ns:Chronic nasal congestion Administer 1 [place] into each nostril in the morning and 1 [place] before bedtime. 15.8 mL 4 4 Active [...] MCG/ACT Inhalation Aerosol Powder Breath Activated (umeclidinium [place]) Inhale 1 Puff by mouth in the morning. Active Fluticasone Furoate-Vilanterol 100-25 MCG/ACT Inhalation Aerosol Powder Breath Activated (BREO ellipta) Inhale 1 Puff by mouth in the morning. Active Cefdinir 300 MG Oral Capsule (Omnicef) Take 1 Capsule by mouth in the morning and 1 Capsule before bedtime. 5 Active Folic Acid 400 MCG Oral Tablet (Folate) Take 1 Tablet by mouth in the morning. 90 Tablet 3 5 Active Fluconazole 150 MG Oral Tablet (Diflucan) Take 1 Tablet by mouth every evening. 3 Tablet 5 Active Nicotine 21 MG/24HR Transdermal Patch 24 Hour (EQ Nicotine) Place 1 Patch over 24 hours topically on the skin daily. 60 Patch 02/ 025 Active Hospital, Clinic, or Other Facility [...] encounter Miscellaneous Notes * Telephone Encounter - Kirti Lezama OSA - 11/04/2024 3:04 PM EST Not sure why but this referral will not pull any providers ? [facility] it go straight [facility] ? documented in this encounter Plan of Treatment Upcoming Encounters Date Type Department Care Team (Late st Contact Info) Description 12/10/2024 1:00 PM EDT Office Visit Otolaryngology [facility] [address] [place] [address] Amrik Hernandez PA-C [address] [place] [address] 01/01/2025 10:00 AM EDT Office Visit [facility] [address] [place] [address] Emani Parikh CRNP [address] [place] [address] 02/04/2025 11:40 AM EDT Office Visit [facility] [address] [place] [address] Emani Parikh CRNP [address] [place] [address] 08/18/2025 10:20 AM EST Office Visit [facility] [address] [place] [address] Akbar Daniel [address] [place] [address] Health Maintenance Due Date Last Done Comments DISCUSS TOBACCO CESSATION (REFER TO SMARTSET #6384) 1955 Depression Screening 1966 Albumin/Creatinine Ratio 1972 [...] D LEVEL ONCE IN A LIFETIME-USE SMARTSET# [id number] Completed 01/10/2024, 10/11/2023, 12/02/2021, Additional history exists [...] this encounter Medical Devices Implanted Type Area Vision Care Associate Device Identifier Shelf Expiration Date Model / Serial / Lot Graft Marker Coronary - [id number] Implanted:Qty: 1 on 01/15/2012 [place] [facility] [place]A: Aorta VM CARDIO VASCULAR 04/16/2014 [id number] / / [id number] Sut Steel 6 M654g - [id number] Implanted:Qty: 6 on 01/15/2012 at [place] [facility] [place]/A: Chest DO NOT USE 10/17/2016 M654G / / [id number] Sut Steel 6 M654g - [id number] Implanted:Qty: 2 on 01/15/2012 at [place] [facility] [place] N/A: Chest DO NOT USE 10/17/2016 M654G / / [id number] Graft Marker Coronary - [id number] Implanted:Qty: 1 on 01/15/2012 at [place] [facility] [place] N/A: Aorta VM CARDIO VASCULAR 08/16/2013 [id number] / / [id number] Lens Intraoc 15.5 - [id number] - [id number] Implanted:Qty: 1 on 10/21/2019 by Tay Acevedo MD at OR [facility] Left: Eye BAUSCH & LOMB 01/15/2024 [id number] / [id number] / Lens Intraoc 16.0 - [id number] - [id number] Implanted:Qty: 1 on 11/04/2019 by Tay Acevedo MD at OR [facility] Right: Eye BAUSCH & LOMB 05/17/2024 [id number] / [id number] / documented as of this encounter Advance Directives * Full Code (Latest Code Status on File) Date Activated Date Inactivated Comments 01/15/2012 3:49 PM 01/20/2012 4:10 PM This order re flects the patients wishes and were consensually agreed upon. Care Teams Plate Grainer Relationship Specialty Start Date End Date Akbar Daniel DO [address] [place] [address] PCP - General Family Medicine 08/22/22 documented as of this encounter
--- OUTSIDE RECORDS SUMMARY | 2024-11-29 10:38 | External Medical Summary | Summary of Care ---
Author Name Unknown Organization [facility] [address] [facility] [address] Phone [phone] Care Team Providers Care Mitering Machine Operator Name Role Phone Akbar Daniel Primary Care Provider Reason for Visit * Reason Onset Date Comments Hospital Follow-Up 10/27/2024 [facility] dc 10/24 Encounter Details Date Type Department Care Team (Late st Contact Info) Description 10/27/2024 Telephone Family Practice [facility] [address] [facility] [place] [address] Maribeth Segal, RN Hospital Follow-Up ([facility] dc 10/24) Allergies Active Allergy Reactions Criticality Noted Date [...] as of this encounter (statuses as of 10/27/2024) Medications LORAZEPAM 1 MG PO TABSIndications:Pt also [...] times a year. 07/17/20 23 Active Calcitonin ([place]) 200 UNIT/ACT Nasal Solution (Fortical)Indicati ons:Compression fracture of lumbar vertebra, unspecified lumbar vertebral level, initial encounter ([facility]) Administer 1 [place] into one nostril in the morning. alternate [...] Suspension (Flonase)Indicatio ns:Chronic nasal congestion Administer 1 [place] into each nostril in the morning and 1 [place] before bedtime. 15.8 mL 4 09/12/20 24 [...] 8 hours as needed. 09/19/19 25 Active Azithromycin 250 MG Oral Tablet (Zithromax) Take 2 Tablets by mouth in the morning. 10/24/19 25 025 Active dexAMETHasone 6 MG Oral Tablet (Decadron) Take 1 Tablet by mouth in the morning. 10/24/19 25 025 Active Ondansetron HCl 4 MG Oral Tablet [...] by mouth every evening. 10/24/19 25 Active Vancomycin HCl 125 MG Oral Capsule (Vancocin) Take 1 Capsule by mouth every 6 hours. 10/24/19 25 025 Active Metoprolol Succinate ER 50 MG Oral Tablet Extended Release 24 Hour (toPROL XL) Take 1 Tablet by mouth in the morning. 10/27/19 Active Incruse Ellipta 62.5 MCG/ACT Inhalation Aerosol Powder Breath Activated (umeclidinium [place]) Inhale 1 Puff by mouth in the morning. Active Fluticasone Furoate-Vilanterol 100-25 MCG/ACT Inhalation Aerosol Powder Breath Activated (BREO ellipta) Inhale 1 Puff by mouth in the morning. Active Vancomycin HCl 125 MG Oral Capsule (Vancocin)Indicati ons:Clostridium difficile diarrhea Take 1 Capsule by mouth every 6 hours for 7 days. 28 Capsule 08/11/20 24 025 Discontin ued(Medic ation/Dos e Changed) Metoprolol Succinate ER 50 MG Oral Tablet Extended Release 24 Hour (toPROL XL) Take 1 Tablet by mouth in the morning and 1 Tablet in the evening. 180 Tablet 10/06/19 25 025 Discontin ued(Medic ation/Dos e Changed) Magnesium Oxide 400 MG Oral Tablet Take 1 Tablet by mouth in the morning. 90 Tablet 10/06/19 25 025 Discontin ued(Medic ation List Clean Up) Losartan Potassium 50 MG Oral Tablet (Cozaar)Indication s:Chronic HFrEF (heart failure with reduced ejection fraction) (HCC) Take 2 Tablets by mouth in the morning. 180 Tablet 3 10/21/19 25 025 Discontin ued(Medic ation/Dos e Changed) Amoxicillin-Pot Clavulanate 875-125 MG Oral Tablet (Augmentin) Take 1 Tablet by mouth in the morning and 1 Tablet before bedtime. 10/24/19 25 025 Discontin ued(Patie nt preferenc e/discont inuation) Hospital, Clinic, or Other Facility Administered Medication Ordered Dose Route Frequency Start Date End Date Status Albuterol Sulfate (Proventil) (2.5 MG/3ML) 0.083% inhalation solution 2.5 mgIndications:COPD, severity to be determined (HCC) 2.5 mg NEBULIZER ONCE PRN 10/01/2024 10/01/2025 Active documented as of this encounter (statuses as of 10/27/2024) Active Problems Problem Noted Date Diagnosed Date [...] as of this encounter (statuses as of 10/27/2024) Social History Tobacco Use Types Packs/Day Years [...] encounter Miscellaneous Notes * Telephone Encounter - Maribeth Segal RN - 10/27/2024 12:56 PM EST Pt returned my call * Addendum Note - Maribeth Segal RN - 10/27/2024 12:51 PM ESTAddended by: MARIBETH SEGAL on: 10/27/2024 12:51 PM Modules accepted: Orders * Telephone Encounter - Maribeth Segal RN - 10/27/2024 12:50 PM EST Spoke with the Nurse Navigator at [facility]. The hospitalist sent in Cefdinir in placed of Sangeeta leon pt. Voicemail left for pt to call me about this * Telephone Encounter - Maribeth Segal RN - 10/27/2024 11:48 AM EST Transitions of Care Note Reason for Referral:Recent Admission Phone visit for follow up: COSMO Admitted to: [facility], Date: 10/21 Discharged to: home, Date: 10/24 Diagnosis driving hospitalization: Acute hypoxic respiratory failure Coronavirus (non-COVID) infection COPD exacerbation Source/Contact: Patient SUBJECTIVE Consent: Verbal consent for review of hospital discharge: Yes REVIEW OF SYSTEMS Patient/Other Reports: Current patient/caregiver problems or concerns: none at this time CV: Denies problems Pulmonary: Denies problems Reports she is feeling much better Chills/Sweats/Fever:Denies chills/sweats Denies fever Appetite:Denies problems such as nausea, vomiting, burning, decreased appetite Current diet: as before Bowel: denies problems Bladder: denies problems Wound (If applicable): N/A Pain:Denies Sleep:Denies problems FUNCTIONAL STATUS: ADL'S: Needs Assistance With:N/A as pt is independent IADL'S: Needs Assistance With:N/A as pt is independent Cognitive and Mental Health: denies problems, alert and oriented x 3, and able to communicate, understand instructions, process information. MEDICATION RECONCILIATION Medications: Discharge med list reviewed with patient or caregiver New medication(s) filled since hospitalization- Breo Ellipta, Incruse Ellipta, Decadron, Augmentin,Zithromax, Vancomycin, zofran Changed medication(s) since hospitalization metoprolol, losartan Discontinued medication(s) since hospitalization- imodium and magnesium Reports all medications taken as prescribed. Denies side effects OBJECTIVE ASSESSMENT Medication Risk Assessment: she claims to be allergic to augmentin but had unaysn IV in the hospital without issues. Reaching out to the hospital nurse navigator for assistance Did patient fail outpatient treatment? No Discharge instructions available for review? Yes PLAN Symptom Monitoring Interventions:Member/caregiver education - signs and symptoms to contact PrimaryCare (DO NOT DELETE-Three barlow symptoms patient is to report to PCP) 1. SOB 2. Worsening diarrhea 3. Hyper/hypotension Transport TechFine Unhairer of Care interventions/Action Plan: Medication reconciliation and 5 - 7 day follow-up with PCP in place - Date: 10/31 Educated on role of COSMO completed with patient/caregiver. Educated patient/caregiver on patient right to have input on COSMO plan of care. Verification of Home Health/DME if indicated: YES Team HH Identified Care Gaps: Yes Care Gaps closed this call: Appointment made or confirmed, Medication adherence, and Transition of Care follow-up communication Re-evaluation of Plan of Care and progress towards goals achievement: Patient education this visit: Verbal, as above Plan to follow-up as previously scheduled, instructed to call Primary Care Provider with change in symptoms or as needed before next follow-up, discharge needs met, verbalizes understanding and agrees with plan. Maribeth Segal RN documented in this encounter Plan of Treatment Upcoming Encounters Date Type Department Care Team (Late st Contact Info) Description 10/31/2024 11:00 AM EST Office Visit Family Practice [facility] [address] [place] [address] [address] Emani Parikh CRNP [address] [place] [address] [address] 12/10/2024 1:00 PM EDT Office Visit Otolaryngology [facility] [address] [place] [address] [address] Amrik Hernandez PA-C [address] [place] [address] 01/01/2025 10:00 AM EDT Office Visit [facility] [address] [place] [address] Emani Parikh CRNP [address] [place] [address] 02/04/2025 11:40 AM EDT Office Visit [facility] [address] [place] [address] Emani Parikh CRNP [address] [place] [address] 08/18/2025 10:20 AM EST Office Visit [facility] [address] [place] [address] Akbar Daniel DO [address] [place] [address] Health Maintenance Due Date Last Done Comments DISCUSS TOBACCO CESSATION (REFER TO SMARTSET #5079) 1955 Depression Screening 1966 Albumin/Creatinine Ratio 1972 [...] D LEVEL ONCE IN A LIFETIME-USE SMARTSET# 87249 Completed 01/10/2024, 10/11/2023, 12/02/2021, Additional history exists [...] this encounter Medical Devices Implanted Type Area Environmental Monitoring Technician Device Identifier Shelf Expiration Date Model / Serial / Lot Graft Marker Coronary - [id number] Implanted:Qty: 1 on 01/15/2012 at OR [facility] N/A: Aorta VM CARDIO VASCULAR 04/16/2014 [id number] / / [id number] Sut Steel 6 M654g - [id number] Implanted:Qty: 6 on 01/15/2012 at OR [facility] N/A: Chest DO NOT USE 10/17/2016 M654G / / [id number] Sut Steel 6 M654g - [id number] Implanted:Qty: 2 on 01/15/2012 at OR [facility] N/A: Chest DO NOT USE 10/17/2016 M654G / / [id number] Graft Marker Coronary - [id number] Implanted:Qty: 1 on 01/15/2012 at OR [facility] N/A: Aorta VM CARDIO VASCULAR 08/16/2013 [id number] / / [id number] Lens Intraoc 15.5 - [id number] - [id number] Implanted:Qty: 1 on 10/21/2019 by Tay Acevedo MD at OR [facility] Left: Eye BAUSCH & LOMB 01/15/2024 [id number] / [id number] / Lens Intraoc 16.0 - [id number] - [id number] Implanted:Qty: 1 on 11/04/2019 by Tay Acevedo MD at OR [facility] Right: Eye BAUSCH & LOMB 05/17/2024 [id number] / [id number] / documented as of this encounter Advance Directives * Full Code (Latest Code Status on File) Date Activated Date Inactivated Comments 01/15/2012 3:49 PM 01/20/2012 4:10 PM This order re flects the patients wishes and were consensually agreed upon. Care Teams Mitering Machine Operator Relationship Specialty Start Date End Date Akbar Daniel DO [address] [place] [address] [address] PCP - General Family Medicine 08/22/22 documented as of this encounter
--- OUTSIDE RECORDS SUMMARY | 2024-11-29 10:38 | External Medical Summary | Summary of Care ---
Author Name Unknown Organization [facility] Address [address] [facility] [address] Phone [phone] Care Team Providers Care Hand Glass Cutter Name Role Phone Akbar Daniel Primary Care Provider Reason for Visit * Reason Onset Date Comments Hospital Follow-Up 10/27/2024 [facility] dc 10/24 Encounter Details Date Type Department Care Team (Late st Contact Info) Description 10/27/2024 Telephone Family Practice [facility] 132 [facility] [place] [address] Maribeth Segal, RN Hospital Follow-Up ([facility] dc 10/24) Allergies Active Allergy Reactions Criticality [...] times a year. 07/17/20 23 Active Calcitonin ([place]) 200 UNIT/ACT Nasal Solution (Fortical)Indicati ons:Compression fracture of lumbar vertebra, unspecified lumbar vertebral level, initial encounter ([facility]) Administer 1 [place] into one nostril in the morning. alternate [...] Suspension (Flonase)Indicatio ns:Chronic nasal congestion Administer 1 [place] into each nostril in the morning and 1 [place] before bedtime. 15.8 mL 4 09/12/20 24 [...] MCG/ACT Inhalation Aerosol Powder Breath Activated (umeclidinium [place]) Inhale 1 Puff by mouth in the [...] EST Spoke with the Nurse Navigator at [facility]. The hospitalist sent in Cefdinir in placed of Sangeeta leon pt. Voicemail left for pt to call me about this * Telephone Encounter - Maribeth Segal RN - 10/27/2024 11:48 AM EST Transitions of Care Note Reason for Referral:Recent Admission Phone visit for follow up: COSMO Admitted to: [facility], Date: 10/21 Discharged to: home, Date: 10/24 [...] 1. SOB 2. Worsening diarrhea 3. Hyper/hypotension Hatchery ManagerSupervisor Microwave of Care interventions/Action Plan: Medication reconciliation and [...] 11:00 AM EST Office Visit Family Practice [facility] [address] [place] [address] [address] Emani Parikh CRNP [address] [place] [address] [address] 12/10/2024 1:00 PM EDT Office Visit Otolaryngology [facility] [address] [place] [address] Amrik Hernandez PA-C [address] [place] [address] 01/01/2025 10:00 AM EDT Office Visit [facility] [address] [place] [address] Emani Parikh CRNP [address] [place] [address] 02/04/2025 11:40 AM EDT Office Visit [facility] [address] [place] [address] Emani Parikh CRNP [address] [place] [address] 08/18/2025 10:20 AM EST Office Visit [facility] [address] [place] [address] Akbar Daniel DO [address] [place] [address] Health Maintenance Due Date Last Done Comments DISCUSS TOBACCO CESSATION (REFER TO SMARTSET #1401) 1955 Depression Screening 1966 Albumin/Creatinine Ratio 1972 [...] D LEVEL ONCE IN A LIFETIME-USE SMARTSET# 52271 Completed 01/10/2024, 10/11/2023, 12/02/2021, Additional history exists [...] this encounter Medical Devices Implanted Type Area Family Welfare Social Work Professor Device Identifier Shelf Expiration Date Model / Serial / Lot Graft Marker Coronary - [id number] Implanted:Qty: 1 on 01/15/2012 at OR [facility] N/A: Aorta VM CARDIO VASCULAR 04/16/2014 [id number] / / [id number] Sut Steel 6 M654g - [id number] Implanted:Qty: 6 on 01/15/2012 at OR [facility] N/A: Chest DO NOT USE 10/17/2016 M654G / / [id number] Sut Steel 6 M654g - [id number] Implanted:Qty: 2 on 01/15/2012 at OR [facility] N/A: Chest DO NOT USE 10/17/2016 M654G / / [id number] Graft Marker Coronary - [id number] Implanted:Qty: 1 on 01/15/2012 at OR [facility] N/A: Aorta VM CARDIO VASCULAR 08/16/2013 [id number] / / [id number] Lens Intraoc 15.5 - [id number] - [id number] Implanted:Qty: 1 on 10/21/2019 by Tay Acevedo MD at OR [facility] Left: Eye BAUSCH & LOMB 01/15/2024 [id number] / [id number] / Lens Intraoc 16.0 - [id number] - [id number] Implanted:Qty: 1 on 11/04/2019 by Tay Acevedo MD at OR [facility] Right: Eye BAUSCH & LOMB 05/17/2024 [id number] / [id number] / documented as of this encounter Advance Directives * Full Code (Latest Code Status on File) Date Activated Date Inactivated Comments 01/15/2012 3:49 PM 01/20/2012 4:10 PM This order re flects the patients wishes and were consensually agreed upon. Care Teams Hand Glass Cutter Relationship Specialty Start Date End Date Akbar Daniel DO [address] [place] [address] [address] PCP - General Family Medicine 08/22/22 documented as of this encounter
--- OUTSIDE RECORDS SUMMARY | 2024-11-29 10:38 | External Medical Summary | Summary of Care ---
Author Name Unknown Organization [facility] Address [address] [facility] [address] Phone [phone] Care Team Providers Care It Trainee Name Role Phone Akbar Daniel DO Primary Care Provider Encounter Details Date Type Department Care Team (Late st Contact Info) Description 08/08/2024 Telephone Family Practice [facility] [address] [place] [address] Akbar Daniel DO [address] [place] [address] Allergies Active Allergy Reactions Criticality Noted Date [...] as of this encounter (statuses as of 11/08/2024) Medications LORAZEPAM 1 MG PO TABSIndication s:Pt [...] MG/ML Injection Solution (Infed) Administer 50 mg intravenously . Receives infusions for 3 weeks, three times a year. 07/17/20 23 Active Calcitonin ([place]) 200 UNIT/ACT Nasal Solution (Fortical)Lindsey cations:Compre ssion fracture of lumbar vertebra, unspecified lumbar vertebral level, initial encounter ([facility]) Administer 1 [place] into one nostril in the morning. alternate nostrils.. 3 mL 11 06/26/20 24 Active Omeprazole 40 MG Oral Capsule Delayed Release (PriLOSEC)Lindsey cations:GERD (gastroesophag eal reflux disease) TAKE 1 CAPSULE BY MOUTH IN THE MORNING AND BEFORE BEDTIME 180 Capsule 1 07/03/20 24 Active ondansetron (ZOFRAN) 8 MG Tablet Take 1 Tablet by mouth in the morning. 0 07/07/20 15 024 Discontinued fluticasone (FLONASE) 50 MCG/ACT nasal spray Administer 2 Sprays into each nostril in the morning. 2 08/13/20 17 024 Discontinued isosorbide mononitrate SA (IMDUR) 30 MG TB24 Take 1 Tablet by mouth in the morning. 024 Discontinued Metoprolol Succinate ER 50 MG Oral Tablet Extended Release 24 Hour (toPROL XL) Take 1 Tablet by mouth in the morning. In the morning.. 06/17/20 22 024 Discontinued Spironolactone 50 MG Oral Tablet (Aldactone) Take 1 Tablet by mouth in the morning and 1 Tablet before bedtime. 12/11/06 21 024 Discontinued Losartan Potassium 100 MG Oral Tablet (Cozaar) Take 1 Tablet by mouth at bedtime. 11/23/19 024 Discontinued Vitamin D 25 MCG (1000 UT) Oral Tablet Take 1 Tablet by mouth in the morning. 30 Tablet 11 01/11/20 24 024 Discontinued(Me dication List Clean Up) traZODone HCl 150 MG Oral Tablet (Desyrel) Take 1 Tablet by mouth at bedtime. 01/01/20 24 024 Discontinued(Me dication List Clean Up) Albuterol Sulfate HFA 108 (90 Base) MCG/ACT Inhalation Aerosol SolutionIndica tions:COPD, severity to be determined (HCC) INHALE 2 PUFFS EVERY 4 HOURS NEEDED FOR SHORTNESS OF BREATH 18 g 3 06/04/20 24 025 Discontinued Gabapentin 800 MG Oral Tablet (Neurontin)Ind ications:Migra ine without aura and without status migrainosus, not intractable TAKE 1 TABLET BY MOUTH IN THE MORNING, AT NOON, IN THE EVENING, AND BEFORE BEDTIME. 360 Tablet 3 07/04/20 24 024 Discontinued(Me dication/Dose Changed) Vancomycin HCl 125 MG Oral Capsule (Vancocin) Take 1 Capsule by mouth every 6 hours. 08/04/20 24 Discontinued(Re fill) documented as of this encounter (statuses as of 11/08/2024) Active Problems Problem Noted Date Diagnosed Date [...] as of this encounter (statuses as of 11/08/2024) Social History Tobacco Use Types Packs/Day Years [...] encounter Miscellaneous Notes * Telephone Encounter - Isabel Barragan CCMA - 08/12/2024 10:28 AM EST Patient has since been seen on 08/11/24. * Telephone Encounter - Paris Driver OSA - 08/08/2024 12:23 PM EST Estelita calling from [facility]. Need to relay message. Pt was seen in the hospital last week. They took her off of her Losartan and Spironalactone because she has C-diff. Now her BP is 160/80. Home health Estelita is concerned. Please call her if any changes are needed. documented in this encounter Plan of Treatment Upcoming Encounters Date Type Department Care Team (Late st Contact Info) Description 12/10/2024 1:00 PM EDT Office Visit Otolaryngology [facility] [address] [address] [address] Amrik Hernandez PA-C [address] [place] [address] [address] 01/01/2025 10:00 AM EDT Office Visit [facility] [address] [place] [address] [address] Emani Parikh CRNP [address] [place] [address] [address] 01/07/2025 9:00 AM EDT Office Visit Pulmonary Medicine, [facility] [address] [place] [address] [address] Keo Amezcua MD [address] [place] [address] [address] 02/04/2025 11:40 AM EDT Office Visit [facility] [address] [place] [address] [address] Emani Parikh CRNP [address] [place] [address] [address] 08/18/2025 10:20 AM EST Office Visit [facility] [address] [place] [address] [address] Akbar Daniel DO [address] [place] [address] [address] Health Maintenance Due Date Last Done Comments DISCUSS TOBACCO CESSATION (REFER TO SMARTSET #4457) 1955 Depression Screening 1966 Albumin/Creatinine Ratio 1972 [...] D LEVEL ONCE IN A LIFETIME-USE SMARTSET# 52341 Completed 01/10/2024, 10/11/2023, 12/02/2021, Additional history exists [...] this encounter Medical Devices Implanted Type Area Inside Sales Executive Device Identifier Shelf Expiration Date Model / Serial / Lot Graft Marker Coronary - [id number] Implanted:Qty: 1 on 01/15/2012 at OR [facility] [place] N/A: Aorta VM CARDIO VASCULAR 04/16/2014 [id number] / / [id number] Sut Steel 6 M654g - [id number] Implanted:Qty: 6 on 01/15/2012 at OR [facility] N/A: Chest DO NOT USE 10/17/2016 M654G / / [id number] Sut Steel 6 M654g - [id number] Implanted:Qty: 2 on 01/15/2012 at OR [facility] N/A: Chest DO NOT USE 10/17/2016 M654G / / [id number] Graft Marker Coronary - [id number] Implanted:Qty: 1 on 01/15/2012 at OR [facility] N/A: Aorta VM CARDIO VASCULAR 08/16/2013 [id number] / / [id number] Lens Intraoc 15.5 - [id number] - [id number] Implanted:Qty: 1 on 10/21/2019 by Tay Acevedo MD at OR [facility] Left: Eye BAUSCH & LOMB 01/15/2024 [id number] / [id number] / Lens Intraoc 16.0 - [id number] - [id number] Implanted:Qty: 1 on 11/04/2019 by Tay Acevedo MD at OR [facility] Right: Eye BAUSCH & LOMB 05/17/2024 [id number] / [id number] / documented as of this encounter Advance Directives * Full Code (Latest Code Status on File) Date Activated Date Inactivated Comments 01/15/2012 3:49 PM 01/20/2012 4:10 PM This order re flects the patients wishes and were consensually agreed upon. Care Teams It Trainee Relationship Specialty Start Date End Date Akbar Daniel DO [address] [address] PCP - General Family Medicine 08/22/22 documented as of this encounter
--- OUTSIDE RECORDS SUMMARY | 2024-11-29 10:38 | External Medical Summary | Summary of Care ---
Author Name Unknown Organization [facility] [address] [facility] [address] Phone [phone] Care Team Providers Care Inspector Metal Fabricating Name Role Phone Akbar Danielrazia Primary Care Provider Reason for Referral * Evaluate & Treat - Unlimited Visits (Within 30 days (routine)) - Authorized Specialty Diagnoses / Procedures Referred By Froylan marie Referred To Contact Pulmonary Diseases / Pulmonary Diagnoses Pulmonary HTN (HCC) Emani Parikh CRNP [address] [place] [address] Phone: tel: fax: Referral ID Status Reason Start Date Expiration Date Visits Requested Visits Authorized [id number] Authorized Specialty Services Required 11/04/[phone] Question Answer Referral Priority Within 30 days (routine) Where should this appointment be scheduled? [facility] Primary Reason for Referral? Pulmonary HTN [facility]DC Comments Pulm htn and copd Reason for Visit * Reason Onset Date Comments Emergency Department Follow-Up M N- 10/21/2024Hypoxemia, N/V/diarrhea. Hospital Follow-Up 11/04/2024 Encounter Details Date Type Department Care Team (Late st Contact Info) Description 11/04/2024 11:00 AM EST Office Visit [facility] [address] [place] [address] Emani Parikh CRNP [address] [place] [address] Hospital discharge follow-up*; Acute respiratory failure with hypoxia ([facility]); COPD exacerbation ([facility]); Coronavirus infection; Chronic HFrEF (heart failure with reduced ejection fraction) ([facility]); COPD, severity to be determined ([facility]); Tobacco use disorder; C. difficile diarrhea; Pulmonary HTN ([facility]); Pleural effusion; Folate deficiency; Vaginal candidiasis Allergies Active Allergy Reactions Criticality Noted Date [...] times a year. 07/17/20 23 Active Calcitonin ([place]) 200 UNIT/ACT Nasal Solution (Fortical)Indicati ons:Compression fracture of lumbar vertebra, unspecified lumbar vertebral level, initial encounter ([facility]) Administer 1 [place] into one nostril in the morning. alternate [...] Suspension (Flonase)Indicatio ns:Chronic nasal congestion Administer 1 [place] into each nostril in the morning and 1 [place] before bedtime. 15.8 mL 4 09/12/20 24 Active Albuterol Sulfate HFA 108 (90 Base) MCG/ACT Inhalation Aerosol SolutionIndication s:COPD, severity to be determined ([facility]) INHALE 2 PUFFS BY MOUTH [...] mouth in the morning. 10/27/19 25 Active Incruse Ellipta 62.5 MCG/ACT Inhalation Aerosol Powder Breath Activated (umeclidinium [place]) Inhale 1 Puff by mouth in the [...] every evening. 3 Tablet 11/04/19 25 Active Nicotine 21 MG/24HR Transdermal Patch 24 Hour (EQ Nicotine) Place 1 Patch over 24 hours topically on the skin daily. 60 Patch 11/04/19 25 025 Active Diphenoxylate-Atro pine 2.5-0.025 MG/5ML Oral Liquid (Lomotil)Indicatio ns:Chronic diarrhea Take 5 mL by mouth every evening. 60 mL 5 09/09/20 24 025 Discontin ued(Medic ation List Clean Up) Saccharomyces boulardii 250 MG Oral Capsule (Florastor)Indicat ions:Recurrent Clostridioides difficile diarrhea Take 1 Capsule by mouth in the morning and 1 Capsule before bedtime. 180 Capsule 3 09/09/20 24 025 Discontin ued(Medic ation List Clean Up) Isosorbide Mononitrate ER 30 MG Oral Tablet Extended Release 24 Hour (Imdur) Take 1.5 Tablets by mouth in the morning. 45 Tablet 2 10/01/19 25 025 Discontin ued(Medic ation List Clean Up) Hospital, Clinic, or Other Facility Administered Medication [...] Sign Reading Time Taken Comments Blood Pressure 118/80 11/04/2024 11:02 AM EST manual, ERROR on omron Pulse 48 11/04/2024 11:06 AM EST manual radial, weak. Temperature 36.1 C (97 F) 11/04/2024 11: 02 AM EST Respiratory Rate - - Oxygen Saturation 97% 11/04/2024 11: 02 AM EST Inhaled Oxygen Concentration - - Weight 59.1 kg (130 lb 3.2 oz) 11/04/2024 11:02 AM EST Height - - Body Mass Index 23.06 10/08/2024 9:13 AM EST documented in this encounter Progress Notes * Emani Parikh CRNP - 11/04/2024 11:14 AM EST SUBJECTIVE: Sierra Wang is a 68 year old female. Chief Complaint Patient presents with Emergency Department Follow-Up [place]- 10/21/2024 Hypoxemia, N/V/diarrhea. Hospital Follow-Up Recent Admission: Patient was recently admitted to [facility] from 10/21/2024-10/24/2024 for hypoxia, copd exacerbation, c diffinfection, and coronavirus infection The date of discharge was 10/24/2024. Discharge report received and reviewed. HPI: Sierra is here for hospital follow up. Admitted to [facility] for copd exacerbation flared by coronavirus with associated hypoxia. She was on hi james oxygen initially in ED then weaned. She was also empirically treated with unasyn and azithromycin then discharged on augmentin and azithromycin at home.She was also treated dexamethasone. Pulmonary HTN- confirmed on echo and CT chest. Estimated PA pressure was >35 mm hg. Discharged on no oxygen at her 2 step testing inpatient was normal. C diff- she is continuing to have baseline diarrhea. 5-7 times per day. On vancomycin. Increased vaginal itching and discharge the last 2 days. HTN: home b/ps before meds 150s/100s. After taking b/p meds 120s/70s. COPD- Discharged on breo. This is not affordable. Patient Active Problem List Diagnosis Chronic coronary artery disease S/P coronary artery bypass with four autogenous grafts Anemia Tobacco use disorder Anxiety disorder DM type 2 causing neurological disease ([facility]) HTN, goal to be determined Backache COPD, severity to be determined ([facility]) B12 deficiency Chronic HFrEF (heart failure with reduced ejection fraction) ([facility]) Dyslipidemia, goal LDL below 100 Iron deficiency anemia, unspecified Mitral valve disease Osteoporosis Paroxysmal atrial fibrillation ([facility]) Migraine without aura and without status migrainosus, not intractable Peripheral arterial disease ([facility]) S/P femoral-popliteal bypass surgery Compression of lumbar vertebra ([facility]) Current Outpatient Medications Medication Sig [...] 3 weeks, three times a year. Calcitonin ([place]) 200 UNIT/ACT Nasal Solution (Fortical) Administer 1 [place] into one nostril in the morning. alternate nostrils.. 3 mL 11 Omeprazole 40 MG Oral Capsule Delayed Release (PriLOSEC) TAKE 1 CAPSULE BY MOUTH IN THE MORNING ANDBEFORE BEDTIME 180 Capsule 1 Gabapentin 400 MG Oral Capsule (Neurontin) Take 1 Capsule by mouth in the morning and 1 Capsule at noon and 1 Capsule before bedtime. Fluticasone Propionate 50 MCG/ACT Nasal Suspension (Flonase) Administer 1 [place] into each nostril in the morning and 1 [place] before bedtime. 15.8 mL 4 Albuterol Sulfate HFA 108 (90 Base) MCG/ACT Inhalation Aerosol Solution INHALE 2 PUFFS BY MOUTH EVERY 4 HOURS NEEDED FOR SHORTNESS OF BREATH 18 g 3 hydrALAZINE HCl 25 MG Oral Tablet (Apresoline) Take 1 Tablet by mouth in the morning and 1 Tablet at noon and 1 Tablet before bedtime. 270 Tablet 3 Potassium Chloride Stephanie ER 20 MEQ Oral Tablet Extended Release Take 1 Tablet by mouth in the morning. 90 Tablet 0 Spironolactone 25 MG Oral Tablet (Aldactone) Take 1 Tablet by mouth in the morning. 90 Tablet 0 Ondansetron 8 MG Oral Tablet Disintegrating (Zofran) 1 Tablet every 8 hours as needed. Ondansetron HCl 4 MG Oral Tablet (Zofran) Take 1 Tablet by mouth every 8 hours as needed for Nausea. Losartan Potassium 100 MG Oral Tablet (Cozaar) Take 0.5 Tablets by mouth in the morning. Metoprolol Succinate ER 25 MG Oral Tablet Extended Release 24 Hour (toPROL XL) Take 1 Tablet by mouth every evening. Vancomycin HCl 125 MG Oral Capsule (Vancocin) Take 1 Capsule by mouth every 6 hours. Metoprolol Succinate ER 50 MG Oral Tablet Extended Release 24 Hour (toPROL XL) Take 1 Tablet by mouth in the morning. Incruse Ellipta 62.5 MCG/ACT Inhalation Aerosol Powder Breath Activated (umeclidinium [place]) Inhale 1 Puff by mouth in the morning. Fluticasone Furoate-Vilanterol 100-25 MCG/ACT Inhalation Aerosol Powder Breath Activated (BREO ellipta) Inhale 1 Puff by mouth in the morning. Cefdinir 300 MG Oral Capsule (Omnicef) Take 1 Capsule by mouth in the morning and 1 Capsule before bedtime. amLODIPine Besylate 5 MG Oral Tablet (Norvasc) Take 1 Tablet by mouth in the morning and 1 Tablet before bedtime. 180 Tablet 3 Current Facility-Administered Medications Medication Dose Route Frequency Provider Last Rate Last Admin Albuterol Sulfate (Proventil) (2.5 MG/3ML) 0.083% inhalation solution 2.5 mg 2.5 mg Nebulizer Once PRN Current and discharge medications have been reconciled. Review of patient's allergies indicates: Allergen Reactions Benzyl Alcohol Anaphylaxis Iodinated Contrast Media Lisinopril Chills/rigors Prochlorperazine Anaphylaxis and Edema airway Promethazine Anaphylaxis Angioedema Saccharin Anaphylaxis Amoxicillin Other (Please comment) Pt c/o headaches with amox Erythromycin Other (Please comment) Pt has headaches and earaches with this medication. Furosemide Itching Iodine Itching Allergy as per patient with itching. Simvastatin Itching OBJECTIVE: BP 118/80 Comment: manual, ERROR on omron | Pulse 48 Comment: manual radial, weak. | Temp 97 F (36.1 C) (Tympanic) | Wt 130 lb 3.2 oz (59.1 kg) | SpO2 97% | BMI 23.06 kg/m | BSA 1.62 m REVIEW OF SYSTEMS: PHYSICAL EXAM: BP 118/80 Comment: manual, ERROR on omron | Pulse 48 Comment: manual radial, weak. | Temp 97 F (36.1 C) (Tympanic) | Wt 130 lb 3.2 oz (59.1 kg) | SpO2 97% | BMI 23.06 kg/m | BSA 1.62 m Physical Exam HENT: Head: Normocephalic. Eyes: Pupils: Pupils are equal, round, and reactive to light. Cardiovascular: Rate and Rhythm: Normal rate and regular rhythm. Pulmonary: Effort: Pulmonary effort is normal. Breath sounds: Normal breath sounds. Abdominal: General: Bowel sounds are normal. Palpations: Abdomen is soft. Tenderness: There is no abdominal tenderness. Musculoskeletal: General: Normal range of motion. Cervical back: Normal range of motion. Neurological: General: No focal deficit present. Mental Status: She is alert and oriented to person, place, and time. Psychiatric: Mood and Affect: Mood normal. Behavior: Behavior normal. Thought Content: Thought content normal. Judgment: Judgment normal. ASSESSMENT: 1. Hospital discharge follow-up (Primary) - DISCH MED RECON CUR MED LIS 2. Acute respiratory failure with hypoxia (HCC) Secondary to copd exacerbation and coronavirus infection 2 step on discharge was normal 3. COPD exacerbation (HCC) S/p azithromycin and augmentin Continue incruse Discharged on breo but patient states she can not afford Reschedule PFT and walk testing Consider addition of trelegy but this may be cost prohibitive 4. Coronavirus infection 5. Chronic HFrEF (heart failure with reduced ejection fraction) (HCC) Ef 45% PULM HTN- suspected class 2-3 6. COPD, severity to be determined (HCC) 7. Tobacco use disorder 1 ppd x 50-60 years Patient is willing to start nicotine patch 8. C. difficile diarrhea CURRENTLY ON VANCOMYCIN 9. Pulmonary HTN (HCC) Who class 2-3 - PULMONARY REFERRAL OP 10. Pleural effusion Recheck in 6-8 errkd - XR CHEST 2 VIEWS 11. Folate deficiency Start folate 12. Vaginal candidiasis Increased with increased abx use I spent a total of Greater than 55 mins (exact time 58 mins) minutes on the date of service in preparation, delivery, and documentation of the care provided to Sierra Wang excluding any time spent in performance of separately billed services. DEANDRA Sahu documented in this encounter Nursing Notes * Mago Tineo LPN - 11/04/2024 11:02 AM EST The patient has been properly identified by confirmation of name and date of . Chief Complaint Patient presents with Emergency Department Follow-Up [place]- 10/21/2024 Hypoxemia, N/V/diarrhea. Still having 5-7 loose BM a day. Depends on diet. Appetite is good. documented in this encounter Plan of Treatment Upcoming Encounters Date Type Department Care Team (Late st Contact Info) Description 12/10/2024 1:00 PM EDT Office Visit Otolaryngology [facility] [address] [place] [address] Amrik Hernandez PA-C [address] [place] [address] 01/01/2025 10:00 AM EDT Office Visit [facility] [address] [place] [address] Emani Parikh CRNP [address] [place] [address] 02/04/2025 11:40 AM EDT Office Visit [facility] [address] [place] [address] Emani Parikh CRNP [address] [place] [address] 08/18/2025 10:20 AM EST Office Visit [facility] [address] [place] [address] Akbar Daniel, [address] [place] [address] Scheduled Orders Name Type Priority Associated Diagnoses Orde r Schedule XR CHEST 2 VIEWS Medical Imaging Routine Pleural effusion Ordered: 11/04/2024 Scheduled Referrals Name Type Priority Associated Diagnoses Orde r Schedule PULMONARY REFERRAL OP Referral Within 30 days (routine) Pulmonary HTN (HCC) Ordered: 11/04/2024 Health Maintenance Due Date Last Done Comments DISCUSS TOBACCO CESSATION (REFER TO SMARTSET #1591) 1955 Depression Screening 1966 Albumin/Creatinine Ratio 1972 [...] D LEVEL ONCE IN A LIFETIME-USE SMARTSET# 29015 Completed 01/10/2024, 10/11/2023, 12/02/2021, Additional history exists [...] this encounter Medical Devices Implanted Type Area Tow Truck Dispatcher Device Identifier Shelf Expiration Date Model / Serial / Lot Graft Marker Coronary - [id number] Implanted:Qty: 1 on 01/15/2012 at [place] [facility] N/A: Aorta VM CARDIO VASCULAR 04/16/2014 [id number] / / [id number] Sut Steel 6 M654g - [id number] Implanted:Qty: 6 on 01/15/2012 at OR [facility] N/A: Chest DO NOT USE 10/17/2016 M654G / / [id number] Sut Steel 6 M654g - [id number] Implanted:Qty: 2 on 01/15/2012 at OR [facility] N/A: Chest DO NOT USE 10/17/2016 M654G / / [id number] Graft Marker Coronary - [id number] Implanted:Qty: 1 on 01/15/2012 at OR [facility] N/A: Aorta VM CARDIO VASCULAR 08/16/2013 [id number] / / [id number] Lens Intraoc 15.5 - [id number] - [id number] Implanted:Qty: 1 on 10/21/2019 by Tay Acevedo MD at [facility] Left: Eye BAUSCH & LOMB 01/15/2024 [id number] / [id number] / Lens Intraoc 16.0 - [id number] - [id number] Implanted:Qty: 1 on 11/04/2019 by Tay Acevedo MD at [facility] Right: Eye BAUSCH & LOMB 05/17/2024 [id number] / [id number] / documented as of this encounter Visit Diagnoses Diagnosis Hospital discharge follow-up- Primary Other follow-up examination Acute respiratory failure with hypoxia (HCC) Acute respiratory failure COPD exacerbation (HCC) Obstructive chronic bronchitis with exacerbation Coronavirus infection Other specified viral infection, in conditions classified elsewhere and of unspecified site Chronic HFrEF (heart failure with reduced ejection fraction) (HCC) COPD, severity to be determined (HCC) Chronic airway obstruction, not elsewhere classified Tobacco use disorder C. difficile diarrhea Intestinal infection due to clostridium difficile Pulmonary HTN (HCC) Other chronic pulmonary heart diseases Pleural effusion Unspecified pleural effusion Folate deficiency Other B-complex deficiencies Vaginal candidiasis Candidiasis of vulva and vagina documented in this encounter Advance Directives * Full Code (Latest Code Status on File) Date Activated Date Inactivated Comments 01/15/2012 3:49 PM 01/20/2012 4:10 PM This order re flects the patients wishes and were consensually agreed upon. Care Teams Inspector Metal Fabricating Relationship Specialty Start Date End Date Akbar Daniel DO [address] [place] [address] PCP - General Family Medicine 08/22/22 documented as of this encounter"
--- OUTSIDE RECORDS SUMMARY | 2024-11-29 10:38 | External Medical Summary | Summary of Care ---
Author Name Unknown Organization [facility] Address [address] [facility] [address] Phone [phone] Care Team Providers Care Extractor Operator Name Role Phone Akbar Daniel Primary Care Provider Reason for Visit * Reason Onset Date Comments Hospital Follow-Up 10/27/2024 [facility] dc 10/24 Encounter Details Date Type Department Care Team (Late st Contact Info) Description 10/27/2024 Telephone Family Practice [facility] [address] [facility] [place] [address] Maribeth Segal, RN Hospital [...] times a year. 07/17/20 23 Active Calcitonin ([place]) 200 UNIT/ACT Nasal Solution (Fortical)Indicati ons:Compression fracture of lumbar vertebra, unspecified lumbar vertebral level, initial encounter ([facility]) Administer 1 [place] into one nostril in the morning. alternate [...] Suspension (Flonase)Indicatio ns:Chronic nasal congestion Administer 1 [place] into each nostril in the morning and 1 [place] before bedtime. 15.8 mL 4 09/12/20 24 [...] MCG/ACT Inhalation Aerosol Powder Breath Activated (umeclidinium [place]) Inhale 1 Puff by mouth in the [...] 1. SOB 2. Worsening diarrhea 3. Hyper/hypotension Distribution Transformer AssemblerHydrometeorological Technician of Care interventions/Action Plan: Medication reconciliation and [...] 11:00 AM EST Office Visit Family Practice [facility] [address] [place] [address] Emani Parikh CRNP [address] [place] [address] 12/10/2024 1:00 PM EDT Office Visit Otolaryngology [facility] [address] [place] [address] Amrik Hernandez PA-C [address] [place] [address] 01/01/2025 10:00 AM EDT Office Visit [facility] [address] [place] [address] Emani Parikh CRNP [address] [place] [address] 02/04/2025 11:40 AM EDT Office Visit [facility] [address] [place] [address] Emani Parikh CRNP [address] [place] [address] 08/18/2025 10:20 AM EST Office Visit [facility] [address] [place] [address] Akbar Daniel DO [address] [place] [address] Health Maintenance Due Date Last Done Comments DISCUSS TOBACCO CESSATION (REFER TO SMARTSET #9989) 1955 Depression Screening 1966 Albumin/Creatinine Ratio 1972 [...] D LEVEL ONCE IN A LIFETIME-USE SMARTSET# [id number] Completed 01/10/2024, 10/11/2023, 12/02/2021, Additional history exists [...] this encounter Medical Devices Implanted Type Area Grease And Tallow Pumper Device Identifier Shelf Expiration Date Model / Serial / Lot Graft Marker Coronary - [id number] Implanted:Qty: 1 on 01/15/2012 at [place] [facility] N/A: Aorta VM CARDIO VASCULAR 04/16/2014 [id number] / / [id number] Sut Steel 6 M654g - [id number] Implanted:Qty: 6 on 01/15/2012 at [place] [facility] N/A: Chest DO NOT USE 10/17/2016 M654G / / [id number] Sut Steel 6 M654g - [id number] Implanted:Qty: 2 on 01/15/2012 at [place] [facility] N/A: Chest DO NOT USE 10/17/2016 M654G / / [id number] Graft Marker Coronary - [id number] Implanted:Qty: 1 on 01/15/2012 at [place] [facility] N/A: Aorta VM CARDIO VASCULAR 08/16/2013 [id number] / / [id number] Lens Intraoc 15.5 - [id number] - [id number] Implanted:Qty: 1 on 10/21/2019 by Tay Acevedo MD at [facility] Left: Eye BAUSCH & LOMB 01/15/2024 [id number] / [id number] / Lens Intraoc 16.0 - [id number] - [id number] Implanted:Qty: 1 on 11/04/2019 by Tay Acevedo MD at OR [facility] Right: Eye BAUSCH & LOMB 05/17/2024 [id number] / [id number] / documented as of this encounter Advance Directives * Full Code (Latest Code Status on File) Date Activated Date Inactivated Comments 01/15/2012 3:49 PM 01/20/2012 4:10 PM This order re flects the patients wishes and were consensually agreed upon. Care Teams Extractor Operator Relationship Specialty Start Date End Date Akbar Daniel DO [address] [place] [address] PCP - General Family Medicine 08/22/22 documented as of this encounter
--- OUTSIDE RECORDS SUMMARY | 2024-11-29 10:38 | External Medical Summary | Summary of Care ---
Author Name Unknown Organization [facility] Address [address] [place] [address] Phone [phone] Care Team Providers Care Wax Specialist Name Role Phone Akbar Daniel DO Primary Care Provider Reason for Visit * Reason Comments eRx-Medication Refill Encounter Details Date Type Department Care Team (Late st Contact Info) Description 11/10/2024 Refill Family Practice [facility] [address] [facility] [place] [address] Akbar Daniel DO [address] [facility] [place] [address] Allergies Active Allergy Reactions Criticality Noted [...] as of this encounter (statuses as of 11/12/2024) Medications LORAZEPAM 1 MG PO TABSIndications:Pt also [...] three times a year. 3 Active Calcitonin ([place]) 200 UNIT/ACT Nasal Solution (Fortical)Indicati ons:Compression fracture of lumbar vertebra, unspecified lumbar vertebral level, initial encounter ([facility]) Administer 1 [place] into one nostril in the morning. alternate [...] Suspension (Flonase)Indicatio ns:Chronic nasal congestion Administer 1 [place] into each nostril in the morning and 1 [place] before bedtime. 15.8 mL 4 4 Active Albuterol Sulfate HFA 108 (90 Base) MCG/ACT Inhalation Aerosol SolutionIndication s:COPD, severity to be determined ([facility]) INHALE 2 PUFFS BY MOUTH EVERY 4 [...] Tablet by mouth every evening. 5 Active Metoprolol Succinate ER 50 MG Oral Tablet Extended Release 24 Hour (toPROL XL) Take 1 Tablet by mouth in the morning. 5 Active Incruse Ellipta 62.5 MCG/ACT Inhalation Aerosol Powder Breath Activated (umeclidinium [place]) Inhale 1 Puff by mouth in the [...] topically on the skin daily. 60 Patch 5 025 Active Hospital, Clinic, or Other Facility Administered Medication Ordered Dose Route Frequency Start Date End Date Status Albuterol Sulfate (Proventil) (2.5 MG/3ML) 0.083% inhalation solution 2.5 mgIndications:COPD, severity to be determined ([facility]) 2.5 mg NEBULIZER ONCE PRN 10/01/2024 10/01/2025 Active documented as of this encounter (statuses as of 11/12/2024) Active Problems Problem Noted Date Diagnosed Date [...] as of this encounter (statuses as of 11/12/2024) Social History Tobacco Use Types Packs/Day Years [...] encounter Miscellaneous Notes * Telephone Encounter - Toña Gage [facility] - 11/11/2024 6:22 PM EST Refused Prescriptions: Disp Refills Potassium Chloride Stephanie ER 20 MEQ Oral Tab*90 Tab*0 Sig: TAKE 1TABLET BY MOUTH EVERY DAY IN THE MORNINGRefused By: TOÑA GAGE for Refusal: Too soon documented in this encounter Plan of Treatment Upcoming Encounters Date Type Department Care Team (Late st Contact Info) Description 11/18/2024 10:30 AM EST Office Visit Pulmonary Medicine, [facility] [address] [place] [address] Keo Amezcua MD [address] [facility] [place] [address] 12/10/2024 1:00 PM EDT Office Visit Otolaryngology [facility] [address] [place] [address] Amrik Hernandez PA-C [address] [place] [address] 01/01/2025 10:00 AM EDT Office Visit Family Practice [facility] [address] [place] [address] Emani Parikh CRNP [address] [place] [address] 02/04/2025 11:40 AM EDT Office Visit [facility] [address] [place] [address] Emani Parikh CRNP [address] [place] [address] 08/18/2025 10:20 AM EST Office Visit [facility] [address] [place] [address] Akbar Daniel DO [address] [place] [address] Health Maintenance Due Date Last Done Comments DISCUSS TOBACCO CESSATION (REFER TO SMARTSET #9035) 1955 Depression Screening 1966 Albumin/Creatinine Ratio 1972 [...] D LEVEL ONCE IN A LIFETIME-USE SMARTSET# 81659 Completed 01/10/2024, 10/11/2023, 12/02/2021, Additional history exists [...] this encounter Medical Devices Implanted Type Area Telesales Team Leader Device Identifier Shelf Expiration Date Model / Serial / Lot Graft Marker Coronary - [id number] [place]planted:Q[place] 1 [place] [facility] [place] Aorta VM CARDIO VASCULAR 04/16/2014 [id number] / / [id number] Sut Steel 6 M654g - [id number] Implanted:Qty: 6 on 01/15/2012 [place] [facility] [place]: Chest DO NOT USE 10/17/2016 M654G / / [id number] Sut Steel 6 M654g - [id number] Implanted:Qty: 2 on 01/15/2012 [place] [facility] [place]: Chest DO NOT USE 10/17/2016 M654G / / [id number] Graft Marker Coronary - [id number] Implanted:Qty: 1 on 01/15/2012 [place] [facility] [place]: Aorta VM CARDIO VASCULAR 08/16/2013 [id number] / / [id number] Lens Intraoc 15.5 - [id number] - [id number] Implanted:Qty: 1 on 10/21/2019 by Tay Acevedo MD at OR [facility] Left: Eye BAUSCH & LOMB 01/15/2024 [id number] / [id number] / Lens Intraoc 16.0 - [id number] - [id number] Implanted:Qty: 1 on 11/04/2019 by Tay Acevedo MD at OR [facility] Right: Eye BAUSCH & LOMB 05/17/2024 [id number] / [id number] / documented as of this encounter Advance Directives * Full Code (Latest Code Status on File) Date Activated Date Inactivated Comments 01/15/2012 3:49 PM 01/20/2012 4:10 PM This order re flects the patients wishes and were consensually agreed upon. Care Teams Wax Specialist Relationship Specialty Start Date End Date Akbar Daniel DO [address] [place] [address] PCP - General Family Medicine 08/22/22 documented as of this encounter
--- OUTSIDE RECORDS SUMMARY | 2024-11-29 10:38 | External Medical Summary | Summary of Care ---
Author Name Unknown Organization [facility] Address [address] [place] [address] Phone [phone] Care Team Providers Care Fertilizer Loader Name Role Phone Akbar Daniel DO Primary Care Provider Reason for Visit * Reason Onset Date Comments Referral 11/04/2024 Encounter Details Date Type Department Care Team (Late st Contact Info) Description 11/04/2024 Telephone Family Practice [facility] [address] [facility] [address] Akbar Daniel DO [address] [facility] [address] Referral Allergies Active Allergy Reactions [...] as of this encounter (statuses as of 11/05/2024) Medications LORAZEPAM 1 MG PO TABSIndications:Pt also [...] three times a year. 3 Active Calcitonin ([place]) 200 UNIT/ACT Nasal Solution (Fortical)Indicati ons:Compression fracture of lumbar vertebra, unspecified lumbar vertebral level, initial encounter ([facility]) Administer 1 [place] into one nostril in the morning. alternate [...] Suspension (Flonase)Indicatio ns:Chronic nasal congestion Administer 1 [place] into each nostril in the morning and 1 [place] before bedtime. 15.8 mL 4 4 Active Albuterol Sulfate HFA 108 (90 Base) MCG/ACT Inhalation Aerosol SolutionIndication s:COPD, severity to be determined ([facility]) INHALE 2 PUFFS BY MOUTH EVERY [...] MCG/ACT Inhalation Aerosol Powder Breath Activated (umeclidinium [place]) Inhale 1 Puff by mouth in the [...] as of this encounter (statuses as of 11/05/2024) Active Problems Problem Noted Date Diagnosed Date [...] as of this encounter (statuses as of 11/05/2024) Social History Tobacco Use Types Packs/Day Years [...] providers ? Should it go straight to [facility] ? documented in this encounter Plan of Treatment Upcoming Encounters Date Type Department Care Team (Late st Contact Info) Description 12/10/2024 1:00 PM EDT Office Visit Otolaryngology [facility] [address] [place] [address] Amrik Hernandez PA-C [address] [place] [address] 01/01/2025 10:00 AM EDT Office Visit [facility] [address] [place] [address] Emani Parikh CRNP [address] [place] [address] 02/04/2025 11:40 AM EDT Office Visit [facility] [address] [place] [address] Emani Parikh CRNP [address] [place] [address] 08/18/2025 10:20 AM EST Office Visit [facility] [address] [place] [address] Akbar Daniel [address] [place] [address] Health Maintenance Due Date Last Done Comments DISCUSS TOBACCO CESSATION (REFER TO SMARTSET #2802) 1955 Depression Screening 1966 Albumin/Creatinine Ratio 1972 [...] D LEVEL ONCE IN A LIFETIME-USE SMARTSET# [id number] Completed 01/10/2024, 10/11/2023, 12/02/2021, Additional history exists [...] this encounter Medical Devices Implanted Type Area Suction Operator Device Identifier Shelf Expiration Date Model / Serial / Lot Graft Marker Coronary - [id number] Implanted:Qty: 1 on 01/15/2012 at [place] [facility] [place] N/A: Aorta VM CARDIO VASCULAR 04/16/2014 14957 / / [id number] Sut Steel 6 M654g - [id number] Implanted:Qty: 6 on 01/15/2012 at OR [facility] [place] N/A: Chest DO NOT USE 10/17/2016 M654G / / [id number] Sut Steel 6 M654g - [id number] Implanted:Qty: 2 on 01/15/2012 at OR [facility] [place] N/A: Chest DO NOT USE 10/17/2016 M654G / / [id number] Graft Marker Coronary - [id number] Implanted:Qty: 1 on 01/15/2012 at OR [facility] [place] N/A: Aorta VM CARDIO VASCULAR 08/16/2013 [id number] / / [id number] Lens Intraoc 15.5 - [id number] - [id number] Implanted:Qty: 1 on 10/21/2019 by Tay Acevedo MD at OR [facility] Left: Eye BAUSCH & LOMB 01/15/2024 [id number] / [id number] / Lens Intraoc 16.0 - [id number] - [id number] Implanted:Qty: 1 on 11/04/2019 by Tay Acevedo MD at OR [facility] Right: Eye BAUSCH & LOMB 05/17/2024 [id number] / [id number] / documented as of this encounter Advance Directives * Full Code (Latest Code Status on File) Date Activated Date Inactivated Comments 01/15/2012 3:49 PM 01/20/2012 4:10 PM This order re flects the patients wishes and were consensually agreed upon. Care Teams Fertilizer Loader Relationship Specialty Start Date End Date Akbar Daniel DO [address] [place] [address] PCP - General Family Medicine 08/22/22 documented as of this encounter
--- NOTE | 2024-11-29 10:55 | Emergency Department Note ---
Impression & Plan Hypoxic respiratory failure, Acute hyponatremia ED Provider Note NAME: TRUMAN DORADO AGE: 68 SEX: F : 1955 ARRIVES VIA: Walk-In INFORMANT: Patient ED PROVIDER(S): Michael Puckett DO CHIEF COMPLAINT: Shortness of breath HPI: Patient is a 68-year-old female with a past medical history of CAD, hypertension, hyperlipidemia, MO, PAD, smoker, COPD with A-fib who presents to the ER for shortness of breath. She notes everything started yesterday. She admits to cough and congestion. She will vomit sometimes with severe coughing. She denies any belly pain. No chest pain. She admits to diffuse myalgias and arthralgias. She has chills. No dysuria, urgency, or frequency. No other exacerbating or remitting factors. ADDITIONAL HISTORY OBTAINED: Per HPI Chronic Medical/Social Conditions Affecting Care: Per HPI PAST MEDICAL HISTORY:See Below PAST SURGICAL HISTORY:See Below FAMILY HISTORY:See Below SOCIAL HISTORY:See Below HOME MEDICATIONS:See Below ALLERGIES:See Below VITALS:See Below PHYSICAL EXAMINATION: GENERAL: Sitting up in bed, alert, well appearing, well nourished, no distress, non-toxic EYE EXAM: normal conjunctiva. PERRL and EOM's grossly intact. OROPHARYNX: no exudate, no erythema, lips, buccal mucosa, and tongue normal and mucous membranes are moist NECK: supple, no nuchal rigidity, no adenopathy, non-tender LUNGS: Diffuse wheezing bilaterally. Normal chest wall mechanics HEART: no murmurs, S1 normal and S2 normal ABDOMEN: abdomen soft, non-tender, normo-active bowel sounds, no masses, no rebound or guarding. UPPER EXTREMITIES: upper extremities are grossly normal. LOWER EXTREMITIES: No pitting edema. Calves are equal bilaterally NEURO EXAM: Normal sensorium, cranial nerves II-XII grossly intact, normal speech, no gross weakness of arms, no gross weakness of legs. MEDICAL DECISION MAKING: Patient is a 68-year-old female who presents ER for the above-stated complaint. IV was established and blood work was obtained. Patient has a history of CAD and COPD. Upon arrival she did have wheezing bilaterally. She was given hour- long neb treatment and steroids. Labs show no significant leukocytosis or anemia. BMP with a CO2 slightly low at 18. LFTs and bilirubin were unremarkable. Troponin was normal. Lipase normal. Bio fire ordered and pending upon admission. Chest x-ray was clean. She was hypoxic and placed on 2 L nasal cannula. She was updated bedside. She was discussed with the hospitalist for further evaluation management treatment due to her acute hypoxia and respiratory failure. She was in no distress on oxygen. Consults/Care Managements Discussions: Per [facility] Triage Nursing notes reviewed. Limited review of prior medical records performed Vital Signs: reviewed and remarkable for hypoxic Differential diagnosis: Differential diagnoses includes but is not limited to pneumonia, bronchitis, COPD/Asthma exacerbation, pneumothorax, pulmonary embolism, congestive heart failure, acute coronary syndrome ER treatment provided: See below Diagnostics interpreted by me include EKG and cardiac monitoring as listed below: -Cardiac Monitoring: An order was placed for continuous cardiac monitoring. The monitor shows a rate of 80 with sinus rhythm. -ECG: Sinus rhythm rate 89 Normal axis No PVCs QTc [address] wave changes in the lateral and high lateral leads -Laboratory studies:Interpreted by me as stated above in MDM and shown below. Imaging studies: Xrays: As interpreted by me: Portable AP upright 1 view of the chest shows no focal infiltrate CTs show: none Procedures:none Critical Care: I have personally spent 44 minutes of critical care time in the direct management of this patient. This includes bedside care, interpretation of diagnostic studies, and testing, discussion with consultants, patient, and family members, and other required patient management activities. This 44 minutes is in excess of all separately billable procedures. Past Med/Surg History Problem List (Updated 11/29/24 @ 13:10 by Michael Puckett DO) Acute hyponatremia (Acute) Hypoxic respiratory failure (Acute) Acid-base disorder, mixed C. difficile colitis Pulmonary hypertension Weakness (Acute) Nausea & vomiting (Acute) Hypoxia (Acute) Coronavirus infection (Acute) Hypoxia Hypertensive urgency Altered mental status NSTEMI (non-ST elevated myocardial infarction) Elevated troponin Hypotension ASCVD (arteriosclerotic cardiovascular disease) Encephalopathy (Acute) Colitis Chronic HFrEF (heart failure with reduced ejection fraction) EF 40-45% per 09/2022 ECHO HAYDEN (acute kidney injury) (Acute) Generalized weakness Paroxysmal atrial fibrillation Atherosclerosis of artery of both lower extremities Current smoker COPD with emphysema Polycythemia Prediabetes pt denies PAD (peripheral artery disease) Myocardial Infarction unsure of date - 2009 or earlier. Hyperlipidemia Hypertension GERD (gastroesophageal reflux disease) Well controlled and stable Anxiety CAD (coronary artery disease) CABG x 4 2002, CABG x 3 2009 Patent PONCE to LAD, vein graft to diagonal and obtuse marginal, and collaterals from RCA by catheterization 01/2017; No new blockages/ischemia seen on stress test 9 Anemia s/p iron infusions- last iron infusion June 2023 Medical History CHF (congestive heart failure) EF 40-45% per 09/2022 ECHO Closed fracture of left proximal humerus Ileus, postoperative Postoperative fever Acute blood loss as cause of postoperative anemia Atrial fibrillation On Eliquis Ischemic cardiomyopathy History of panic attacks worse with large groups History of stomach ulcers 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, twitching and left eye tearing Peripheral neuropathy Migraine Surgical History History of coronary artery bypass graft x4 vessel bypass (~2001/2002) [facility] in [place] x3 vessel bypass (~2009) [facility] Andry follows with Dr Borja ([place]) Family history of reaction to anesthesia DAUGHTER>SLOW TO WAKE UP History of esophagogastroduodenoscopy (EGD) History of colonoscopy H/O abdominal surgery 25-30 YEARS AGO>PART OF STOMACH/COLON/PANCREAS REMOVED D/T STOMACH ULCER History of tooth extraction History of cataract surgery RT/LEFT History of cardiac cath MULTIPLE CATH'S DONE>NO SENTS ([facility]) most recently done in the last five years ([id number]) [facility] no stents. History of total hysterectomy History of cholecystectomy History of appendectomy Family History Daughter Family hx of colon cancer Family history of diabetes mellitus FHx: thyroid cancer Sister Family history of diabetes mellitus Brother FHx: kidney cancer Family history of diabetes mellitus FHx: pancreatic cancer Social History Smoking Status: Current every day smoker Tobacco Type: Cigarettes Cigarettes Per Day: 1 pack per day since the age of 9; Second Hand Exposure: Yes; Do You Dip or Chew Tobacco: No; Hx Alcohol Use: No Hx Substance Use: No Preferred Language: Hungarian Communication Ability: Effective Contact Acid Plant Operator Required: No Beliefs That Will Affect Care: None Current Living Situation: Spouse Current Living Situation Comment: 2 story home, only lives on 1 floor Feels Safe at Home: Yes Assistive Devices: Cane Allergies Allergies Allergy/AdvReac Type Severity Reaction Status Date / Time benzyl alcohol Allergy Severe Anaphylaxis Verified 08/15/23 05:44 Iodinated Contrast Media Allergy Severe Rash - IVP Verified 08/15/23 05:44 dye lisinopril Allergy Severe chills,sera Verified 08/15/23 05:44 rs prochlorperazine Allergy Severe Anaphylaxis Verified 08/15/23 05:44 saccharin Allergy Severe Anaphylaxis Verified 08/15/23 05:44 simvastatin Allergy Intermediate itching Verified 08/15/23 05:44 furosemide Allergy Mild rash Verified 08/15/23 05:44 promethazine Allergy Mild rash Verified 08/15/23 05:44 Home Meds Home Medications Medication Instructions Recorded Confirmed albuterol sulfate 90 mcg/actuation 2 inh inhalation Q4H PRN Shortness 10/21/24 11/29/24 aerosol inhaler Of Breath Or Wheezing apixaban 5 mg tablet (Eliquis) 5 mg PO BID 10/21/24 11/29/24 calcitonin (salmon) 200 1 spray intranasal DAILY 10/21/24 11/29/24 unit/actuation nasal spray fluticasone propionate 50 1 spray intranasal BID 10/21/24 11/29/24 mcg/actuation nasal spray,suspension gabapentin 400 mg capsule 400 mg PO TID 10/21/24 11/29/24 hydralazine 25 mg tablet 25 mg PO TID 10/21/24 11/29/24 lorazepam 1 mg tablet 1 mg PO QID PRN Anxiety 10/21/24 11/29/24 omeprazole 40 mg capsule,delayed 40 mg PO BID 10/21/24 11/29/24 release potassium chloride 20 mEq 20 meq PO DAILY 10/21/24 11/29/24 tablet,extended release(part/cryst) pravastatin 40 mg tablet 40 mg PO HS 10/21/24 11/29/24 spironolactone 25 mg tablet 25 mg PO DAILY 10/21/24 11/29/24 trazodone 150 mg tablet 150 mg PO HS 10/21/24 11/29/24 tiotropium bromide 2.5 2 inh inhalation DAILY 11/29/24 11/29/24 mcg/actuation mist for inhalation (Spiriva Respimat) vancomycin 125 mg capsule 125 mg PO Q2D 11/29/24 11/29/24 Previous Rx's Medication Instructions Recorded fluticasone furoate 100 1 inh inhalation DAILY #60 ea 10/24/24 mcg-vilanterol 25 mcg/dose inhalation powder (Breo Ellipta) losartan 100 mg tablet 50 mg (1/2 x 100 mg) PO DAILY #15 10/24/24 tabs metoprolol succinate 25 mg 25 mg PO QPM #30 tabs 10/24/24 tablet,extended release 24 hr metoprolol succinate 50 mg 50 mg PO QAM #30 tabs 10/24/24 tablet,extended release 24 hr ondansetron HCl 4 mg tablet 4 mg PO Q8H PRN nausea and 10/24/24 vomiting #30 tabs Results & Data (ED) Vital Signs Vital Signs - 24 hr 11/29/24 10:37 11/29/24 10:47 11/29/24 11:24 Temperature 37.0 C Temperature Source Temporal Artery Scan Pulse Rate 76 Pulse Rate [Right Finger] 78 Respiratory Rate 20 16 Respiratory Effort / Characteristics Non-Labored Non-Labored Spontaneous Respiratory Depth Normal Blood Pressure 112/67 Blood Pressure Mean 82 Pulse Oximetry 89 L 85 L 94 Oxygen Delivery Method Room Air Room Air Nasal Cannula Oxygen Flow Rate 2.5 Sepsis Recent Fever Within 48 Hours No Sepsis New/Unexplained Change in Mental Status No Sepsis Action Taken by Nursing No Action Required Oxygen Flow Rate - Titration 2 Pulse Oximetry Post Tiitration 91 11/29/24 11:42 Temperature Temperature Source Pulse Rate 82 Pulse Rate [Right Finger] Respiratory Rate Respiratory Effort / Characteristics Respiratory Depth Blood Pressure Blood Pressure Mean Pulse Oximetry Oxygen Delivery Method Oxygen Flow Rate Sepsis Recent Fever Within 48 Hours Sepsis New/Unexplained Change in Mental Status Sepsis Action Taken by Nursing Oxygen Flow Rate - Titration Pulse Oximetry Post Tiitration Laboratory Data 11/29/24 10:52 11/29/24 10:52 Lab Results 11/29/24 Range/Units 10:52 WBC 6.95 (4.8-10.8) K/ul RBC 4.29 (4.20-5.40) M/uL Hgb 14.0 (12.0-16.0) g/dl Hct 42.1 (37.0-47.0) % MCV 98.1 (80.0-100.0) fL MCH 32.6 (25.0-34.0) pg MCHC 33.3 (32.0-36.0) g/dL RDW Std Deviation 54.4 H (36.4-46.3) fL RDW Coeff of Naman 14.9 H (11.5-14.5) % Plt Count 117 L (130-400) K/uL MPV 11.2 (9.4-12.4) fL Immature Gran % (Auto) 0.4 % Neut % (Auto) 82.3 % Lymph % (Auto) 7.1 % [place] % (Auto) 9.8 % Eos % (Auto) 0.1 % Baso % (Auto) 0.3 % Neut # (Auto) 5.72 (1.40-6.50) K/uL Lymph # (Auto) 0.49 L (1.20-3.40) K/uL [place] # (Auto) 0.68 H (0.11-0.59) K/uL Eos # (Auto) 0.01 (0.00-0.50) K/uL Baso # (Auto) 0.02 (0.00-0.20) K/uL Immature Gran # (Auto) 0.03 (0.01-0.20) K/uL Sodium 134 L (136-145) mmol/L Potassium 4.2 (3.5-5.1) mmol/L Chloride 109 H (98-107) mmol/L Carbon Dioxide 18 L (21-32) mmol/L Anion Gap 7 (3-11) BUN 15 (6-23) mg/dl Creatinine 0.84 (0.6-1.2) mg/dl Est Cr Clr Drug Dosing Not Reportable eGFR 75.18 BUN/Creatinine Ratio 17.9 (10-20) Glucose 132 H (70-99(Fasting)) mg/dl Calcium 9.2 (8.6-10.3) mg/dl Total Bilirubin 0.4 (0.2-1.0) mg/dl AST 20 (13-39) U/L ALT 30 (7-52) U/L Alkaline Phosphatase 70 (34-104) U/L Troponin I High Sens 7.5 (0-14) pg/ml Total Protein 7.2 (6.0-8.3) gm/dl Albumin 4.0 (3.4-5.0) gm/dl Globulin 3.2 (2.5-4.0) gm/dl Albumin/Globulin Ratio 1.3 (0.9-2) Lipase 17 (11-82) U/L Administered Medications Discontinued Medications Albuterol (Albut/Ipratrop 3mg/0.5mg Neb 3 Ml Vial) 9 ml NEB NOW STA; Protocol Stop: 11/29/24 10:53 Last Admin: 11/29/24 11:14 Dose: 9 ml Documented By: SHAILESH Methylprednisolone (Methylprednisolone 125 Mg/2 Ml Vial) 40 mg IV NOW STA Stop: 11/29/24 10:53 Last Admin: 11/29/24 11:13 Dose: 40 mg Documented By: SHAILESH Imaging Data Radiologist's Impression: Chest X-Ray 11/29/24 10:52 HISTORY: Chest pain. TECHNIQUE: Portable AP radiograph of the chest. COMPARISON: Chest CT dated 10/22/2024. Chest radiograph dated 10/21/2024. FINDINGS: Linear opacities involving the left lower lung favoring atelectasis or scarring. Right lung is clear. No pneumothorax or effusion. Mild cardiomegaly. Postsurgical changes of median sternotomy and CABG. Left-sided aortic arch contains atherosclerotic calcification. Midline trachea. IMPRESSION: No acute cardiopulmonary findings. Electronically signed by Rinku Stauffer 11-29-2024 11:29 AM Discharge Plan Visit Data Chief Complaint: Respiratory Problems Stated Complaint: LOW OXYGEN LEVEL, POSSIBLE PNEUMONIA ED Provider: Michael Puckett Discharge Problem: Hypoxic respiratory failure, Acute hyponatremia Forms Stand Alone Forms: My [facility] Prescriptions Prescriptions: No Action Spiriva Respimat 2.5 mcg/actuation mist 2 inh INHALATION DAILY vancomycin 125 mg capsule 125 mg PO Q2D pravastatin 40 mg tablet 40 mg PO HS gabapentin 400 mg capsule 400 mg PO TID hydralazine 25 mg tablet 25 mg PO TID Hold Instructions: until pcp or cardiology followup omeprazole 40 mg capsule,delayed release(DR/EC) 40 mg PO BID spironolactone 25 mg tablet 25 mg PO DAILY potassium chloride 20 mEq tablet,ER particles/crystals 20 meq PO DAILY calcitonin (salmon) 200 unit/actuation spray,non-aerosol 1 spray intranasal DAILY trazodone 150 mg tablet 150 mg PO HS lorazepam 1 mg tablet 1 mg PO QID PRN (Reason: Anxiety) albuterol sulfate 90 mcg/actuation HFA aerosol inhaler 2 inh INHALATION Q4H PRN (Reason: Shortness Of Breath Or Wheezing) fluticasone propionate 50 mcg/actuation spray,suspension 1 spray INTRANASAL BID Eliquis 5 mg tablet 5 mg PO BID Rx Instructions: 0400 and 1600 metoprolol succinate 50 mg Tablet Extended Release 24 Hr 50 mg PO QAM Qty: 30 0RF metoprolol succinate 25 mg Tablet Extended Release 24 Hr 25 mg PO QPM Qty: 30 0RF losartan 100 mg tablet 50 mg PO DAILY Qty: 15 0RF ondansetron HCl 4 mg tablet 4 mg PO Q8H PRN (Reason: nausea and vomiting) Qty: 30 0RF fluticasone furoate-vilanterol [Breo Ellipta] 100-25 mcg/dose blister with device 1 inh inhalation DAILY Qty: 60 0RF Referrals Referrals: Akbar Daniel DO [Primary Care Provider] - Discharge Problem: Hypoxic respiratory failure Qualifiers: Chronicity: acute Qualified Code(s): J96.01 - Acute respiratory failure with hypoxia
[2024-11-29] MEDS: methylPREDNISolone 125 MG/2 ML VIAL IV STA (11:13)
[2024-11-29 11:14] LABS: Basophils # (auto) 0.02 K/uL (0.00-0.20); Basophils % (auto) 0.3 %; Eosinophils # (auto) 0.01 K/uL (0.00-0.50); Eosinophils % (auto) 0.1 %; Hematocrit (blood only) 42.1 % (37.0-47.0); Immature Granulocytes # (auto) 0.03 K/uL (0.01-0.20); Immature Granulocytes % (auto) 0.4 %; Lymphocytes # (auto) 0.49 K/uL (1.20-3.40); Lymphocytes % (auto) 7.1 %; Mean Corpuscular Hemoglobin 32.6 pg (25.0-34.0); Mean Corpuscular Hgb Conc 33.3 g/dL (32.0-36.0); Mean Corpuscular Volume 98.1 fL (80.0-100.0); Mean Platelet Volume 11.2 fL (9.4-12.4); Monocytes # (auto) 0.68 K/uL (0.11-0.59); Monocytes % (auto) 9.8 %; Neutrophils # (auto) 5.72 K/uL (1.40-6.50); Neutrophils % (auto) 82.3 %; Platelet Count 117 K/uL (130-400); RDW Coefficient of Variation 14.9 % (11.5-14.5); RDW Standard Deviation 54.4 fL (36.4-46.3); Red Blood Count 4.29 M/uL (4.20-5.40); White Blood Count 6.95 K/ul (4.8-10.8)
[2024-11-29] MEDS: ALBUT/IPRATROP 3MG/0.5MG NEB 3 ML VIAL NEB STA (11:14)
[2024-11-29 11:27] LABS: Alanine Aminotransferase 30 U/L (7-52); Albumin Globulin Ratio 1.3 (0.9-2); Alkaline Phosphatase 70 U/L (34-104); Anion Gap 7 (3-11); Aspartate Aminotransferase 20 U/L (13-39); BUN Creatinine Ratio 17.9 (10-20); Bilirubin,Total 0.4 mg/dl (0.2-1.0); Blood Urea Nitrogen 15 mg/dl (6-23); Calcium 9.2 mg/dl (8.6-10.3); Carbon Dioxide 18 mmol/L (21-32); Chloride 109 mmol/L (98-107); Globulin 3.2 gm/dl (2.5-4.0); Glucose 132 mg/dl (70-99(Fasting)); Lipase 17 U/L (11-82); Potassium 4.2 mmol/L (3.5-5.1); Sodium 134 mmol/L (136-145); Total Protein 7.2 gm/dl (6.0-8.3)
--- NOTE | 2024-11-29 11:30 | XRay Report ---
HISTORY: Chest pain. TECHNIQUE: Portable AP radiograph of the chest. COMPARISON: Chest CT dated 10/22/2024. Chest radiograph dated 10/21/2024. FINDINGS: Linear opacities involving the left lower lung favoring atelectasis or scarring. Right lung is clear. No pneumothorax or effusion. Mild cardiomegaly. Postsurgical changes of median sternotomy and CABG. Left-sided aortic arch contains atherosclerotic calcification. Midline trachea. IMPRESSION: No acute cardiopulmonary findings. Electronically signed by Rinku Stauffer 11-29-2024 11:29 AM
[2024-11-29 11:33] LABS: Troponin I High Sensitivity 7.5 pg/ml (0-14)
[2024-11-29 13:06] LABS: Adenovirus PCR Not Detected (NotDetected); Bordetella parapertussis PCR Not Detected (NotDetected); Bordetella pertussis PCR Not Detected (NotDetected); Chlamydia pneumoniae PCR Not Detected (NotDetected); Coronavirus 229E PCR Not Detected (NotDetected); Coronavirus CoV-2 (COVID19)PCR Not Detected (NotDetected); Coronavirus HKU1 PCR Not Detected (NotDetected); Coronavirus NL63 PCR Not Detected (NotDetected); Coronavirus OC43PCR Not Detected (NotDetected); Human Metapneumovirus PCR Not Detected (NotDetected); Influenza A (H3) PCR DETECTED (NotDetected); Influenza B PCR Not Detected (NotDetected); Mycoplasma pneumoniae PCR Not Detected (NotDetected); Parainfluenza Virus 1 PCR Not Detected (NotDetected); Parainfluenza Virus 2 PCR Not Detected (NotDetected); Parainfluenza Virus 3 PCR Not Detected (NotDetected); Parainfluenza Virus 4 PCR Not Detected (NotDetected); Respiratory Syncytial VirusPCR Not Detected (NotDetected); Rhinovirus/Enterovirus PCR Not Detected (NotDetected)
--- NOTE | 2024-11-29 13:23 | History & Physical Report ---
Date of Service November 29, 2024 Assessment & Plan (1) Influenza A: (2) Hypoxia: (3) COPD exacerbation: (4) CHF (congestive heart failure): (5) CAD (coronary artery disease): Plan 68-year-old female with past medical history significant for type 2 diabetes, hyperlipidemia, COPD, CAD status post CABG, heart failure with reduced ejection fraction, paroxysmal atrial fibrillation, peripheral artery disease status post femoral-popliteal bypass surgery, hypertension, mitral valve disease, B12 deficiency, osteoporosis, backache, migraines, iron deficiency anemia, tobacco use use disorder, anxiety, who lives at home with her and presents due to not feeling well, cough and vomiting. #Influena A #Hypoxia #Copd Exac admit to medical telemetry continue supplemental O2, wean as able Tamiflu 75mg bid x 5 days, EOT 12/03 IV dexamethasone 6mg daily along with Doxycycline 100mg bid x 7 days --CXR w/o infiltrate Budesonide, formoterol and duonebs, muccinex, flutter valve, ISP Increase Breo to 200mcg inh daily will need f/u with Pulm as outpt place on vanco 125mg daily for cdiff prophylaxis #ECG Changes #CAD w/ hx of CABG #Chronic HFrEF - compensated #PAF #HTN/HLD #PAD - hx of fem pop bypass initial trop negative, pt w/o CP repeat ecg with similar changes will cycle trop x 3, repeat ecg in a.m. and monitor on tele recent echo with EF 40-45%, inferior wall akinesis, mild to moderate RV dilation, increased RV pressure on eliquis,hydralazine, metoprolol, aldactone and statin #Chronic Diarrhea #Recurrent Cdiff - 3 episodes in [address] on daily vanco while on oral doxycycline (currently on every other day as outpt until she starts fecal microbiota treatment) follows with [facility] #Tobacco abuse encourage cessation, nicotine patch ordered #Thrombocytopenia suspect in setting of illness, monitor plt #DVT ppx: Eliquis FULL CODE PCP: Akbar aDniel Dispo: admit to med tele Pt was seen and examined in collaboration with Dr. Zurita, please see addendum I spent a total of 60 minutes coordinating, documenting and providing care for this patient excluding time spent in the performance of separately billed services or time spent by another provider/QHP. History of Present Illness Chief Complaint: ill feeling x 1 day. Primary Care Provider: Akbar Daniel DO 68-year-old female with past medical history significant for type 2 diabetes, hyperlipidemia, COPD, CAD status post CABG, heart failure with reduced ejection fraction, paroxysmal atrial fibrillation, peripheral artery disease status post femoral-popliteal bypass surgery, hypertension, mitral valve disease, B12 deficiency, osteoporosis, backache, migraines, iron deficiency anemia, tobacco use use disorder, anxiety, who lives at home with her and presents due to not feeling well, cough and vomiting. Of significance patient was last hospitalized 10/21- 10/24 secondary to acute hypoxic respiratory failure in setting of coronavirus infection and COPD exacerbation. During the hospitalization she presented hypoxic in the 70s initially requiring high flow nasal cannula. CTA chest was negative for PE but did note pulmonary hypertension. She was empirically treated with IV Unasyn and azithromycin as well as dexamethasone. Her hospital course was complicated by acute on chronic HFrEF and C. difficile colitis. She was discharged on a prolonged vancomycin taper. She continues on the vancomycin taper at 125 mg every other day. She is following with outpatient gastroenterology in [place]. She is waiting to start fecal microbiota therapy and per gastroenterology is to continue vancomycin until she starts this. She continues to have a 5-6 episodes of diarrhea a day. She feels her diarrhea is unchanged. She presents to ED today due to starting to feel unwell yesterday. She was in her usual state of health whenever she developed feeling chills, sweats, coughing so hard she vomits and nausea. She has had a poor appetite for the last 2 days and has not had much in the way of solid food since then. She has been trying to drink fluids. She has been taking her medications as accordingly. She feels her breathing is at baseline and denies any increasing shortness of breath or wheezing. She feels her cough is mostly dry and not wet. She denies any documented fever, lightheadedness, dizziness, chest pain, hematemesis, abdominal pain, dysuria, increased urgency or frequency with urination. She denies any known sick contacts. History is obtained from patient and at bedside. In ED her CBC and CMP was generally unremarkable. Her respiratory bio fire screen currently pending at time of admission. She received a nebulizer treatment as well as IV methylprednisolone in the ED. Allergies Allergy/AdvReac Type Severity Reaction Status Date / Time benzyl alcohol Allergy Severe Anaphylaxis Verified 08/15/23 05:44 Iodinated Contrast Media Allergy Severe Rash - IVP Verified 08/15/23 05:44 dye lisinopril Allergy Severe chills,sera Verified 08/15/23 05:44 rs prochlorperazine Allergy Severe Anaphylaxis Verified 08/15/23 05:44 saccharin Allergy Severe Anaphylaxis Verified 08/15/23 05:44 simvastatin Allergy Intermediate itching Verified 08/15/23 05:44 furosemide Allergy Mild rash Verified 08/15/23 05:44 promethazine Allergy Mild rash Verified 08/15/23 05:44 Home Medications Medication Instructions Recorded Confirmed Type albuterol sulfate 90 mcg/actuation 2 inh inhalation Q4H PRN Shortness 10/21/24 11/29/24 History aerosol inhaler Of Breath Or Wheezing apixaban 5 mg tablet (Eliquis) 5 mg PO BID 10/21/24 11/29/24 History calcitonin (salmon) 200 1 spray intranasal DAILY 10/21/24 11/29/24 History unit/actuation nasal spray fluticasone propionate 50 1 spray intranasal BID 10/21/24 11/29/24 History mcg/actuation nasal spray,suspension gabapentin 400 mg capsule 400 mg PO TID 10/21/24 11/29/24 History hydralazine 25 mg tablet 25 mg PO TID 10/21/24 11/29/24 History lorazepam 1 mg tablet 1 mg PO QID PRN Anxiety 10/21/24 11/29/24 History omeprazole 40 mg capsule,delayed 40 mg PO BID 10/21/24 11/29/24 History release potassium chloride 20 mEq 20 meq PO DAILY 10/21/24 11/29/24 History tablet,extended release(part/cryst) pravastatin 40 mg tablet 40 mg PO HS 10/21/24 11/29/24 History spironolactone 25 mg tablet 25 mg PO DAILY 10/21/24 11/29/24 History fluticasone furoate 100 1 inh inhalation DAILY #60 ea 10/24/24 11/29/24 Rx mcg-vilanterol 25 mcg/dose inhalation powder (Breo Ellipta) losartan 100 mg tablet 50 mg (1/2 x 100 mg) PO DAILY #15 10/24/24 11/29/24 Rx tabs metoprolol succinate 25 mg 25 mg PO QPM #30 tabs 10/24/24 11/29/24 Rx tablet,extended release 24 hr metoprolol succinate 50 mg 50 mg PO QAM #30 tabs 10/24/24 11/29/24 Rx tablet,extended release 24 hr ondansetron HCl 4 mg tablet 4 mg PO Q8H PRN nausea and 10/24/24 11/29/24 Rx vomiting #30 tabs tiotropium bromide 2.5 2 inh inhalation DAILY 11/29/24 11/29/24 History mcg/actuation mist for inhalation (Spiriva Respimat) vancomycin 125 mg capsule 125 mg PO Q2D 11/29/24 11/29/24 History Past Med/Surg History Problem List (Updated 11/29/24 @ 14:20 by Gilda Betts PA-C) Influenza A Acute hyponatremia (Acute) Hypoxic respiratory failure (Acute) Acid-base disorder, mixed C. difficile colitis Pulmonary hypertension Weakness (Acute) Nausea & vomiting (Acute) Hypoxia (Acute) Coronavirus infection (Acute) Hypoxia Hypertensive urgency Altered mental status NSTEMI (non-ST elevated myocardial infarction) Elevated troponin Hypotension ASCVD (arteriosclerotic cardiovascular disease) Encephalopathy (Acute) Colitis Chronic HFrEF (heart failure with reduced ejection fraction) EF 40-45% per 09/2022 ECHO HAYDEN (acute kidney injury) (Acute) Generalized weakness Paroxysmal atrial fibrillation Atherosclerosis of artery of both lower extremities Current smoker COPD with emphysema Polycythemia Prediabetes pt denies PAD (peripheral artery disease) Myocardial Infarction unsure of date - 2009 or earlier. Hyperlipidemia Hypertension GERD (gastroesophageal reflux disease) Well controlled and stable Anxiety CAD (coronary artery disease) CABG x 4 2002, CABG x 3 2009 Patent PONCE to LAD, vein graft to diagonal and obtuse marginal, and collaterals from RCA by catheterization 01/2017; No new blockages/ischemia seen on stress test 9 Anemia s/p iron infusions- last iron infusion June 2023 Medical History CHF (congestive heart failure) EF 40-45% per 09/2022 ECHO Closed fracture of left proximal humerus Ileus, postoperative Postoperative fever Acute blood loss as cause of postoperative anemia Atrial fibrillation On Eliquis Ischemic cardiomyopathy History of panic attacks worse with large groups History of stomach ulcers 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, twitching and left eye tearing Peripheral neuropathy Migraine Surgical History History of coronary artery bypass graft x4 vessel bypass (~2001/2002) [facility] x3 vessel bypass (~2009) JEMIMA Wilde follows with Dr Borja ([place]) Family history of reaction to anesthesia DAUGHTER>SLOW TO WAKE UP History of esophagogastroduodenoscopy (EGD) History of colonoscopy H/O abdominal surgery 25-30 YEARS AGO>PART OF STOMACH/COLON/PANCREAS REMOVED D/T STOMACH ULCER History of tooth extraction History of cataract surgery RT/LEFT History of cardiac cath MULTIPLE CATH'S DONE>NO SENTS ([facility]) most recently done in the last five years ([id number]) done at [facility]. no stents. History of total hysterectomy History of cholecystectomy History of appendectomy Family History Daughter Family hx of colon cancer Family history of diabetes mellitus FHx: thyroid cancer Sister Family history of diabetes mellitus Brother FHx: kidney cancer Family history of diabetes mellitus FHx: pancreatic cancer Social History Smoking Status: Current every day smoker Tobacco Type: Cigarettes Cigarettes Per Day: 1 pack per day since the age of 9; Second Hand Exposure: No; Do You Dip or Chew Tobacco: No; Tobacco Cessation Education Requested by Patient: No Hx Alcohol Use: No Hx Substance Use: No Preferred Language: Montserratian Communication Ability: Effective 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 Beliefs That Will Affect Care: None Current Living Situation: Spouse Current Living Situation Comment: 2 story home, only lives on 1 floor Other Information That Helps Us Care for You: No Feels Safe at Home: Yes Safety Concerns: Feels Safe At This Time Assistive Devices: Cane, Denture - Upper, Denture - Lower and Glasses Review of Systems Review of Systems: All systems reviewed & are unremarkable except as noted in HPI & below Physical Exam Physical Exam: Constitutional: Fraile, F, vitals as above, NAD, sitting up in bed, pleasant, conversing easily receiving nebulizer tx Head: Normocephalic, Atraumatic Eyes: PERRL, conjunctivae normal, anicteric sclerae ENMT: external ear and nose normal, oropharynx normal dry membranes Neck: trachea midline, no thyromegaly normal visual inspection Respiratory: normal respiratory effort, decreased BS at bases, prolonged exp phase, + exp wheeze L > R, no accessory muscle use Cardiovascular: RRR, no murmur, no edema Vessels: no JVD or carotid bruit Chest: normal inspection of chest Abdomen: normal bowel sounds, soft, nontender, no hepatosplenomegaly Musculoskeletal: no cyanosis or clubbing, AROM x 4 Skin: no rashes, warm and dry normal turgor Neurologic: no face palsy, no dysarthria CN's II-XI intact bilaterally and moves all extremities Psychiatric: A+Ox3, euthymic affect Lymphatic: no cervical or axillary lymphadenopathy : deferred Results & Data Results & Data Vital Signs (Past 12 Hours) Vital Signs Temp Pulse Pulse Resp BP Pulse Ox O2 Del Method 11/29/24 11:42 82 11/29/24 11:24 78 16 94 Nasal Cannula 11/29/24 10:47 85 L Room Air 11/29/24 10:37 37.0 C 76 20 112/67 89 L Room Air O2 Flow Rate 11/29/24 11:42 11/29/24 11:24 2.5 11/29/24 10:47 11/29/24 10:37 Laboratory Results I have independently reviewed and interpreted patient's admitting labs including CBC, CMP, resp biofire Diagnostic Findings Chest X-Ray 11/29/24 10:52 HISTORY: Chest pain. TECHNIQUE: Portable AP radiograph of the chest. COMPARISON: Chest CT dated 10/22/2024. Chest radiograph dated 10/21/2024. FINDINGS: Linear opacities involving the left lower lung favoring atelectasis or scarring. Right lung is clear. No pneumothorax or effusion. Mild cardiomegaly. Postsurgical changes of median sternotomy and CABG. Left-sided aortic arch contains atherosclerotic calcification. Midline trachea. IMPRESSION: No acute cardiopulmonary findings. Electronically signed by Rinku Stauffer 11-29-2024 11:29 AM Medications Administered Medication List Discontinued Medications Albuterol (Albut/Ipratrop 3mg/0.5mg Neb 3 Ml Vial) 9 ml NEB NOW STA; Protocol Stop: 11/29/24 10:53 Last Admin: 11/29/24 11:14 Dose: 9 ml Documented By: SHAILESH Methylprednisolone (Methylprednisolone 125 Mg/2 Ml Vial) 40 mg IV NOW STA Stop: 11/29/24 10:53 Last Admin: 11/29/24 11:13 Dose: 40 mg Documented By: SHAILESH ECG Additional Comments: I have independently reviewed and interpreted patient's admitting EKG which revealed: 89 SR, qtc 501ms, t wave inverted anteriorly Code Status & VTE Plan Code Status FULL CODE VTE Prophylaxis Plan VTE Prophylaxis will be ordered: No Supervising Physician Co-Signing Physician Notes I have seen and discussed the case with the collaborating advanced practitioner. I agree with the above H&P. I have reviewed and confirmed the patients medical history, the findings on physical examination, and the patients diagnosis and treatment plan with Roxane EDEN and agree with the information documented. In short, is a 68 yo woman with COPD and emphysema admitted for Influenza A and COPD exacerbation. Exam notable for minimal expiratory wheeze in mid-airway, and diminished sounds in periphery. Patient will continue LAMA/LABA/ICS, Decadron iso benzyl alcohol allergy, as well as nebs and tamiflu. Patient with ischemic cardiac disease and abnormal EKG noted, however, troponins negative--suspect changes iso acute illness. montior on tele Patient euvolemic on exam. suspect will potentially need home o2--plan for nocturnal oximetry tomorrow evening and 2 step prior to dispo. Patient with recurrent c diff, will increase ppx dosing of po vanc while on doxy. Rest of plan as above I spent a total of 25 minutes coordinating, documenting, and providing care for this patient excluding time spent in the performance of separately billed services. All of the aforementioned completed outside of collaborating with the assigned advanced practitioner for a full treatment plan. I have reviewed the advanced practitioner's documentation, and I agree with, and take responsibility for the plan of care (5) CAD (coronary artery disease) Associated angina: without angina Coronary Disease-Associated Artery/Lesion type: [place] artery [place] vs. transplanted heart: [place] heart Qualified Code(s): I25.10 - Atherosclerotic heart disease of [place] coronary artery without angina pectoris
[2024-11-29] MEDS ORDERED: OSELTAMIVIR PHOSPHATE 75 MG CAP PO ONE (13:45)
[2024-11-29] MEDS: Patient's HEIGHT &/or WEIGHT Needed STA (14:01)
[2024-11-29] MEDS ORDERED: POLYETHYLENE (MIRALAX) 17 GM PACK PO PRN (14:53)
[2024-11-29] MEDS ORDERED: FAMOTIDINE 20 MG TAB PO PRN (14:53)
[2024-11-29] MEDS: ALBUT/IPRATROP 3MG/0.5MG NEB 3 ML VIAL INH SCH (15:32)
[2024-11-29] MEDS: ACETAMINOPHEN 325 MG TAB PO PRN (16:06)
[2024-11-29] MEDS: GABAPENTIN 400 MG CAP PO SCH (16:37)
[2024-11-29] MEDS: OSELTAMIVIR PHOSPHATE 75 MG CAP PO ONE (16:37)
[2024-11-29] MEDS: LORazepam 1 MG TAB PO PRN (16:37)
[2024-11-29] MEDS: hydrALAZINE HCL 25 MG TAB PO SCH (16:37)
[2024-11-29] MEDS: FORMOTEROL 20 MCG/2 ML VIAL NEB SCH (19:55)
[2024-11-29] MEDS: BUDESONIDE 0.5 MG/2 ML VIAL (PULMICORT) NEB SCH (19:55)
[2024-11-29] MEDS: FLUTICASONE PROPIONATE NA SPR 16 GM BTL SCH (21:23)
[2024-11-29] MEDS: OSELTAMIVIR PHOSPHATE 75 MG CAP PO SCH (21:27)
[2024-11-29] MEDS: DOXYCYCLINE HYCLATE 100 MG CAP PO SCH (21:27)
[2024-11-29] MEDS: MELATONIN 3 MG TAB PO PRN (21:27)
[2024-11-29] MEDS: METOPROLOL SUCC 25MG EXT REL TAB PO SCH (21:28)
[2024-11-29] MEDS: CETIRIZINE HCL 10 MG TABLET PO SCH (21:28)
[2024-11-29] MEDS: APIXABAN 5 MG TABLET PO SCH (21:29)
[2024-11-29] MEDS: guaiFENesin 600 MG TABCR PO SCH (21:29)
[2024-11-29] MEDS: PANTOprazole 40 MG TAB PO SCH (21:29)
[2024-11-29] MEDS: PRAVASTATIN SOD 40 MG TAB PO SCH (22:09)
[2024-11-30] MEDS: ONDANSETRON INJ 2 MG/ML 2 ML VIAL IV PRN (00:47)
[2024-11-30 07:48] LABS: Basophils # (auto) 0.01 K/uL (0.00-0.20); Basophils % (auto) 0.1 %; Hematocrit (blood only) 43.5 % (37.0-47.0); Hemoglobin 14.4 g/dl (12.0-16.0); Immature Granulocytes # (auto) 0.03 K/uL (0.01-0.20); Immature Granulocytes % (auto) 0.4 %; Lymphocytes # (auto) 0.85 K/uL (1.20-3.40); Lymphocytes % (auto) 12.6 %; Mean Corpuscular Hgb Conc 33.1 g/dL (32.0-36.0); Mean Corpuscular Volume 99.5 fL (80.0-100.0); Mean Platelet Volume 11.2 fL (9.4-12.4); Monocytes # (auto) 0.59 K/uL (0.11-0.59); Monocytes % (auto) 8.8 %; Neutrophils # (auto) 5.25 K/uL (1.40-6.50); Neutrophils % (auto) 78.1 %; Platelet Count 108 K/uL (130-400); RDW Coefficient of Variation 14.6 % (11.5-14.5); RDW Standard Deviation 53.7 fL (36.4-46.3); Red Blood Count 4.37 M/uL (4.20-5.40); White Blood Count 6.73 K/ul (4.8-10.8)
[2024-11-30 08:10] LABS: BUN Creatinine Ratio 27.4 (10-20); Calcium 9.8 mg/dl (8.6-10.3); Magnesium 1.8 mg/dl (1.7-2.4); Potassium 4.4 mmol/L (3.5-5.1)
[2024-11-30] MEDS ORDERED: GLUCOSE 10 TAB/TUBE PO PRN (08:39)
[2024-11-30] MEDS ORDERED: DEXTROSE 50% 50 ML SYRINGE IV PRN (08:39)
[2024-11-30] MEDS ORDERED: CARBOHYDRATES FOR HYPOGLYCEMIA PO PRN (08:39)
[2024-11-30] MEDS ORDERED: GLUCOSE 40% GEL 15 GM TUBE PO PRN (08:39)
[2024-11-30] MEDS ORDERED: GLUCAGON FOR INJ 1 MG VIAL SQ PRN (08:39)
[2024-11-30] MEDS: CALCITONIN SALMON NA 200 IU/AC 3.7 ML BTL SCH (08:46)
[2024-11-30] MEDS: SPIRONOLACTONE 25 MG TAB PO SCH (08:46)
[2024-11-30] MEDS: METOPROLOL SUCC 50MG EXT REL TAB PO SCH (08:46)
[2024-11-30] MEDS: LOSARTAN POTASSIUM 50 MG TAB PO SCH (08:46)
[2024-11-30] MEDS: VANCOMYCIN HCL 125 MG/2.5ML SOLN PO SCH (08:47)
[2024-11-30] MEDS: dexAMETHasone**PF** 10 MG/ML VIAL IV SCH (08:47)
[2024-11-30] MEDS: CHERRY SYRUP 5 ML UDP PO SCH (08:47)
[2024-11-30] MEDS: NICOTINE 14 MG/24 HR PATCH TD SCH (08:47)
[2024-11-30] MEDS: FLUTICASONE/VILANTEROL 200/25MCG 14 PUFFS/INHALER INH SCH (08:47)
[2024-11-30] MEDS: POTASSIUM CHLORIDE CRTAB 20 MEQ TABCR PO SCH (08:59)
[2024-11-30] MEDS ORDERED: dexAMETHasone 4 MG in SYRINGE 0 ML IV SCH (09:00)
[2024-11-30] MEDS: INSULIN ASPART PER UNIT CHARGE SC SCH (09:35)
--- NOTE | 2024-11-30 12:00 | Electrocardiogram Report ---
Test Reason : Blood Pressure : */* mmHG Vent. Rate : 89 BPM Atrial Rate : 89 BPM P-R Int : 134 ms QRS Dur : 110 ms QT Int : 412 ms P-R-T Axes : 35 -27 89 degrees QTcB Int : 501 ms Sinus rhythm with marked sinus arrhythmia Left ventricular hypertrophy with repolarization abnormality ( R in aVL ) Inferior infarct , age undetermined Abnormal ECG When compared with ECG of 21-Oct-2024 19:37, Premature ventricular complexes are no longer Present Premature atrial complexes are no longer Present Nonspecific T wave abnormality now evident in Anterior leads QT has lengthened Confirmed by Gelacio Rockwell ([id number]) on 11/30/2024 12:00:08 PM Referred By: REFERRED SELF Confirmed By: Gelacio Rockwell
--- NOTE | 2024-11-30 12:04 | Electrocardiogram Report ---
Test Reason : Blood Pressure : */* mmHG Vent. Rate : 84 BPM Atrial Rate : 84 BPM P-R Int : 128 ms QRS Dur : 110 ms QT Int : 422 ms P-R-T Axes : 27 -22 89 degrees QTcB Int : 498 ms Sinus rhythm with occasional Premature ventricular complexes Left ventricular hypertrophy with repolarization abnormality ( R in aVL ) Inferior infarct (cited on or before 29-Nov-2024) Abnormal ECG When compared with ECG of 29-Nov-2024 10:52, (unconfirmed) Premature ventricular complexes are now Present T wave inversion more evident in Anterolateral leads Confirmed by Gelacio Rockwell ([id number]) on 11/30/2024 12:03:51 PM Referred By: REFERRED SELF Confirmed By: Gelacio Rockwell
--- NOTE | 2024-11-30 12:15 | Electrocardiogram Report ---
Test Reason : Blood Pressure : */* mmHG Vent. Rate : 84 BPM Atrial Rate : 84 BPM P-R Int : 142 ms QRS Dur : 124 ms QT Int : 428 ms P-R-T Axes : 43 -25 95 degrees QTcB Int : 505 ms Sinus rhythm with marked sinus arrhythmia with occasional Premature ventricular complexes Left ventricular hypertrophy with QRS widening and repolarization abnormality Inferior infarct (cited on or before 29-Nov-2024) Abnormal ECG When compared with ECG of 29-Nov-2024 13:52, (unconfirmed) No significant change was found Confirmed by Gelacio Rockwell ([id number]) on 11/30/2024 12:15:02 PM Referred By: REFERRED SELF Confirmed By: Gelacio Rockwell
--- NOTE | 2024-11-30 12:25 | Hospitalist Progress Note ---
Date of Service November 30, 2024 Assessment & Plan (1) Influenza A: (2) Hypoxia: (3) COPD exacerbation: (4) CHF (congestive heart failure): (5) CAD (coronary artery disease): Plan 68-year-old female with past medical history significant for type 2 diabetes, hyperlipidemia, COPD, CAD status post CABG, heart failure with reduced ejection fraction, paroxysmal atrial fibrillation, peripheral artery disease status post femoral-popliteal bypass surgery, hypertension, mitral valve disease, B12 deficiency, osteoporosis, backache, migraines, iron deficiency anemia, tobacco use use disorder, anxiety, who lives at home with her and presents due to not feeling well, cough and vomiting. #Influena A #Hypoxia #Copd Exac admit to medical telemetry continue supplemental O2, wean as able Tamiflu 75mg bid x 5 days, EOT 12/03 IV dexamethasone 6mg daily along with Doxycycline 100mg bid x 7 days --CXR w/o infiltrate Budesonide, formoterol and duonebs, muccinex, flutter valve, ISP Increase Breo to 200mcg inh daily will need f/u with Pulm as outpt place on vanco 125mg daily for cdiff prophylaxis #ECG Changes #CAD w/ hx of CABG #Chronic HFrEF - compensated #PAF #HTN/HLD #PAD - hx of fem pop bypass trop x 3 negative repeat ecg with similar changes recent echo with EF 40-45%, inferior wall akinesis, mild to moderate RV dilation, increased RV pressure on eliquis,hydralazine, metoprolol, aldactone and statin #Chronic Diarrhea #Recurrent Cdiff - 3 episodes in [address] on daily vanco while on oral doxycycline (currently on every other day as outpt until she starts fecal microbiota treatment) follows with [facility] #Tobacco abuse encourage cessation, nicotine patch ordered #Thrombocytopenia suspect in setting of illness, monitor plt #DVT ppx: Eliquis FULL CODE PCP: Akbar Daniel Dispo: admit to med tele, likely discharge tomorrow, will do nocturnal sleep study tonight and a 2 step tomorrow Pt was seen and examined in collaboration with Dr. Zurita, please see addendum I spent a total of 44 minutes coordinating, documenting and providing care for this patient excluding time spent in the performance of separately billed services or time spent by another provider/QHP. Admission and Anticipated Discharge Date Admission Date: November 29, 2024 Supervising Physician Co-Signing Physician Notes I have seen and discussed the case with the collaborating advanced practitioner. I agree with the above H&P. I have reviewed and confirmed the patients medical history, the findings on physical examination, and the patients diagnosis and treatment plan with Roxane EDEN and agree with the information documented. In short, is a 68 yo woman with COPD and emphysema admitted for Influenza A and COPD exacerbation. patient improving symptomatically with possible d/c tomorrow with nebs and oxygen if warranted by noctural ox/2 step. I have reviewed the advanced practitioner's documentation, and I agree with, and take responsibility for the plan of care Subjective Pt was seen and examined in room 252-1. F/U Influenza A. She feels better this morning. She feels less SOB. Denies f/c/s, chest pain, n/v. She still has a cough, but less. SHe reports less sputum production. She still has a decreased appetite. Review of Systems Review of Systems: All systems reviewed & are unremarkable except as noted in HPI & below Physical Exam Physical Exam: Gen: Thin, fraile, lying in bed, appears better today, NAD, A&O x3 HEENT: Normocephalic, atraumatic, conjunctivae moist, sclerae anicteric, mucous membranes moist. Lung: Clear to Auscultation bilaterally,but diminished B/L, no wheezes/rales/rhonchi Heart: Regular rate, regular rhythm, no murmurs, rubs, or gallops Abdomen: Soft, NT, ND +BS x 4 Extremities: No edema Skin: Warm, no rash, negative turgor. Results & Data Results & Data Vital Signs (Past 12 Hours) Vital Signs Temp Pulse Pulse Resp BP Pulse Ox O2 Del Method 11/30/24 11:24 36.9 C 89 16 100/61 96 Nasal Cannula 11/30/24 10:26 Nasal Cannula 11/30/24 07:48 86 18 97 Nasal Cannula 11/30/24 07:32 36.9 C 81 20 117/68 98 Nasal Cannula 11/30/24 06:45 82 11/30/24 04:13 36.9 C 77 18 106/67 98 Nasal Cannula 11/30/24 00:38 86 19 96 Nasal Cannula O2 Flow Rate 11/30/24 11:24 2 11/30/24 10:26 3 11/30/24 07:48 3 11/30/24 07:32 3 11/30/24 06:45 11/30/24 04:13 3 11/30/24 00:38 3 Laboratory Results I have independently reviewed and interpreted patient's cbc, bmp, mag, trop Medications Administered Current Inpatient Medications Acetaminophen (Acetaminophen 325 Mg Tab) 650 mg PO Q4H PRN PRN Reason: pain/fever Stop: 12/29/24 14:52 Last Admin: 11/29/24 16:06 Dose: 650 mg Albuterol (Albut/Ipratrop 3mg/0.5mg Neb 3 Ml Vial) 3 ml INH Q6R [facility]I Stop: 12/29/24 14:52 Last Admin: 11/30/24 07:47 Dose: Not Given Apixaban (Apixaban 5 Mg Tablet) 5 mg PO BID [facility]ANDI Stop: 12/29/24 20:59 Last Admin: 11/30/24 08:46 Dose: 5 mg Budesonide (Budesonide 0.5 Mg/2 Ml Vial (Pulmicort)) 0.5 mg NEB BIDR [facility]I Stop: 12/29/24 18:59 Last Admin: 11/30/24 07:47 Dose: 0.5 mg Calcitonin [place] (Calcitonin [place] Na 200 Iu/Ac 3.7 Ml Btl) 1 sprays NA DAILY [facility]I Stop: 12/30/24 08:59 Last Admin: 11/30/24 08:46 Dose: 1 sprays Cetirizine HCl (Cetirizine Hcl 10 Mg Tablet) 10 mg PO HS M[facility]I Stop: 12/29/24 20:59 Last Admin: 11/29/24 21:28 Dose: 10 mg Wise Syrup (Wise Syrup 5 Ml Udp) 5 ml PO DAILY [facility] Stop: 12/30/24 08:59 Last Admin: 11/30/24 08:47 Dose: 5 ml Dexamethasone Sodium Phosphate (DexamethasonePf 10 Mg/Ml Vial) 6 mg IV DAILY [facility]I Stop: 12/30/24 08:59 Last Admin: 11/30/24 08:47 Dose: 6 mg Dextrose (Dextrose 50% 50 Ml Syringe) 25 - 50 ml IV UD PRN; Protocol PRN Reason: Hypoglycemia Protocol Stop: 12/30/24 08:38 Doxycycline Hyclate (Doxycycline Hyclate 100 Mg Cap) 100 mg PO BID [facility] Stop: 12/04/24 20:59 Last Admin: 11/30/24 08:46 Dose: 100 mg Famotidine (Famotidine 20 Mg Tab) 20 mg PO DAILY PRN PRN Reason: Heartburn Stop: 12/29/24 14:52 Fluticasone Propionate (Fluticasone Propionate Na Spr 16 Gm Btl) 1 sprays NA BID [facility] Stop: 12/29/24 20:59 Last Admin: 11/30/24 08:46 Dose: 1 sprays Fluticasone/Vilanterol (Fluticasone/Vilanterol 200/25mcg 14 Puffs/Inhaler) 1 puffs INH DAILY [facility] Stop: 12/30/24 08:59 Last Admin: 11/30/24 08:47 Dose: 1 puffs Formoterol Fumarate (Formoterol 20 Mcg/2 Ml Vial) 20 mcg NEB BIDR [facility] Stop: 12/29/24 18:59 Last Admin: 11/30/24 07:47 Dose: 20 mcg Gabapentin (Gabapentin 400 Mg Cap) 400 mg PO TID [facility] Stop: 12/29/24 14:52 Last Admin: 11/30/24 08:46 Dose: 400 mg Glucagon (Glucagon For Inj 1 Mg Vial) 1 mg SQ UD PRN; Protocol PRN Reason: Hypoglycemia Protocol Stop: 12/30/24 08:38 Glucose (Glucose 40% Gel 15 Gm Tube) 15 - 30 gm PO UD PRN; Protocol PRN Reason: Hypoglycemia Protocol Stop: 12/30/24 08:38 Glucose (Glucose 10 Tab/Tube) 4 - 8 tab PO UD PRN; Protocol PRN Reason: Hypoglycemia Protocol Stop: 12/30/24 08:38 Guaifenesin (Guaifenesin 600 Mg Tabcr) 1,200 mg PO BID [facility] Stop: 12/29/24 20:59 Last Admin: 11/30/24 08:46 Dose: 1,200 mg Hydralazine HCl (Hydralazine Hcl 25 Mg Tab) 25 mg PO TID [facility] Stop: 12/29/24 14:52 Last Admin: 11/30/24 08:44 Dose: Not Given Insulin Aspart (Insulin Aspart Per Unit Charge) 0 units SC ACHS [facility] Stop: 12/30/24 08:59 Last Admin: 11/30/24 09:35 Dose: 4 units Lorazepam (Lorazepam 1 Mg Tab) 1 mg PO Q8H PRN PRN Reason: Anxiety/Agitation Stop: 12/29/24 16:28 Last Admin: 11/30/24 08:59 Dose: 1 mg Losartan Potassium (Losartan Potassium 50 Mg Tab) 50 mg PO DAILY [facility] Stop: 12/30/24 08:59 Last Admin: 11/30/24 08:46 Dose: 50 mg Melatonin (Melatonin 3 Mg Tab) 6 mg PO HS PRN PRN Reason: Sleep Stop: 12/29/24 20:59 Last Admin: 11/29/24 21:27 Dose: 6 mg Metoprolol Succinate (Metoprolol Succ 50mg Ext Rel Tab) 50 mg PO QAM [facility] Stop: 12/30/24 08:59 Last Admin: 11/30/24 08:46 Dose: 50 mg Metoprolol Succinate (Metoprolol Succ 25mg Ext Rel Tab) 25 mg PO QPM [facility] Stop: 12/29/24 20:59 Last Admin: 11/29/24 21:28 Dose: 25 mg Miscellaneous (Remove Nicoderm Patch) 1 each N/A DAILY@0859 [facility] Stop: 12/30/24 08:58 Last Admin: 11/30/24 08:41 Dose: 1 each Miscellaneous (Carbohydrates For Hypoglycemia ) 15 - 30 gm PO UD PRN PRN Reason: Hypoglycemia Protocol Stop: 12/30/24 08:38 Nicotine (Nicotine 14 Mg/24 Hr Patch) 1 patch TD QAM [facility] Stop: 12/30/24 08:59 Last Admin: 11/30/24 08:47 Dose: 1 patch Ondansetron HCl (Ondansetron Inj 2 Mg/Ml 2 Ml Vial) 4 mg IV Q6H PRN PRN Reason: Nausea Stop: 12/29/24 14:52 Last Admin: 11/30/24 00:47 Dose: 4 mg Oseltamivir Phosphate (Oseltamivir Phosphate 75 Mg Cap) 75 mg PO BID [facility] Stop: 12/04/24 20:59 Last Admin: 11/30/24 10:02 Dose: 75 mg Pantoprazole Sodium (Pantoprazole 40 Mg Tab) 40 mg PO BID [facility] Stop: 12/29/24 20:59 Last Admin: 11/30/24 08:46 Dose: 40 mg Polyethylene Glycol (Polyethylene (Miralax) 17 Gm Pack) 17 gm PO DAILY PRN PRN Reason: Constipation Stop: 12/29/24 14:52 Potassium Chloride (Potassium Chloride Crtab 20 Meq Tabcr) 20 meq PO DAILY [facility] Stop: 12/30/24 08:59 Last Admin: 11/30/24 08:59 Dose: 20 meq Pravastatin Sodium (Pravastatin Sod 40 Mg Tab) 40 mg PO HS [facility] Stop: 12/29/24 20:59 Last Admin: 11/29/24 22:09 Dose: 40 mg Spironolactone (Spironolactone 25 Mg Tab) 25 mg PO DAILY [facility] Stop: 12/30/24 08:59 Last Admin: 11/30/24 08:46 Dose: 25 mg Vancomycin HCl (Vancomycin Hcl 125 Mg/2.5ml Soln) 125 mg PO DAILY [facility] Stop: 12/30/24 08:59 Last Admin: 11/30/24 08:47 Dose: 125 mg ECG Additional Comments: I have independently reviewed and interpreted patient's admitting EKG which revealed: 84, NSR PVC, no change from day prior (5) CAD (coronary artery disease) Associated angina: without angina Coronary Disease-Associated Artery/Lesion type: [place] artery [place] vs. transplanted heart: [place] heart Qualified Code(s): I25.10 - Atherosclerotic heart disease of [place] coronary artery without angina pectoris
[2024-11-30] MEDS: MAGNESIUM SULFATE / D5W 1 GM/100 ML BAG IV ONE (14:23)
[2024-12-01 07:07] LABS: Basophils # (auto) 0.01 K/uL (0.00-0.20); Basophils % (auto) 0.2 %; Hematocrit (blood only) 39.7 % (37.0-47.0); Hemoglobin 13.1 g/dl (12.0-16.0); Immature Granulocytes # (auto) 0.03 K/uL (0.01-0.20); Immature Granulocytes % (auto) 0.5 %; Lymphocytes # (auto) 1.01 K/uL (1.20-3.40); Lymphocytes % (auto) 16.8 %; Mean Corpuscular Hemoglobin 32.6 pg (25.0-34.0); Mean Corpuscular Volume 98.8 fL (80.0-100.0); Mean Platelet Volume 11.4 fL (9.4-12.4); Monocytes # (auto) 0.64 K/uL (0.11-0.59); Monocytes % (auto) 10.6 %; Neutrophils # (auto) 4.33 K/uL (1.40-6.50); Neutrophils % (auto) 71.9 %; Platelet Count 106 K/uL (130-400); RDW Coefficient of Variation 14.6 % (11.5-14.5); RDW Standard Deviation 53.5 fL (36.4-46.3); Red Blood Count 4.02 M/uL (4.20-5.40); White Blood Count 6.02 K/ul (4.8-10.8)
[2024-12-01] MEDS: dexAMETHasone 4 MG TAB PO SCH (10:22)
[2024-12-01 11:00] VITALS: BP 116/73
[2024-12-01 11:15] VITALS: TEMP 97.5
[2024-12-01 11:37] LABS: Estimated Average Glucose 131 mg/dl; Hemoglobin A1C 6.2 % (4.5-5.6)
[2024-12-01 11:38] VITALS: PULSE 100; RESP 15; O2SAT 98
--- NOTE | 2024-12-01 11:40 | Discharge Summary ---
Discharge Summary Date of Service December 01, 2024 Principal Dx & Hospital Course #1 = Principal Diagnosis (1) Influenza A: (2) Hypoxia: (3) COPD exacerbation: (4) CHF (congestive heart failure): (5) CAD (coronary artery disease): Plan 68-year-old female with past medical history significant for type 2 diabetes, hyperlipidemia, COPD, CAD status post CABG, heart failure with reduced ejection fraction, paroxysmal atrial fibrillation, peripheral artery disease status post femoral-popliteal bypass surgery, hypertension, mitral valve disease, B12 deficiency, osteoporosis, backache, migraines, iron deficiency anemia, tobacco u se use disorder, anxiety, who lives at home with her and presents due to not feeling well, cough and vomiting. Patient was hypoxic requiring 2 to 3 L on admission. Her chest x-ray was negative for acute abnormality. She tested positive for influenza A. It is also felt that she had a COPD exacerbation. She was started on Tamiflu 75 mg twice daily, doxycycline 100 mg twice daily ( in favor of Azithromycin due to QTC), IV dexamethasone 6 mg daily. Her Breo was also increased from 100 mcg to 200 mcg. On admission she did have some subtle anterior EKG changes with T wave inversions. Her troponins were cycled x 3 and negative. It was felt this is likely secondary to hypoxia and influenza illness. She did recently undergo an echocardiogram that showed an EF of 40 to 45% which was unchanged from prior echo. Given patient's recurrent history of C. difficile her vancomycin was increased from 125 mg every other day to daily while on antibiotic therapy. She discussed with me that she just recently received her new medication from her copier field service technician which is a new fecal microbiota therapy. She is to stop Vanco and start on this. During the course of patient's hospitalization she was eventually able to be weaned off oxygen. She completed a two-step study on day of discharge which showed no need for daytime oxygen. She did have a nocturnal oximetry study done on day of discharge which showed she did not qualify for nocturnal oxygen. On day of discharge she was feeling much better. She had increased breath sounds at her bases and no longer had any wheezing. She felt her breathing was back to baseline. She is going to be discharged to complete the course of Tamiflu, doxycycline and a short dexamethasone taper. She is encouraged to continue daily Vanco while on antibiotic therapy. When antibiotic is complete she can then start her fecal microbiota therapy. She is also encouraged to start a new Breo inhaler at the 200 mcg dose. She has been prescribed a nebulizer to use at home as needed for shortness of breath and wheezing. She is strongly encouraged to follow-up with her primary care provider at discharge as well as pulmonology. On day of discharge vital signs are stable, saturating well on room air. She was eating and drinking normally. She was independent in her room and did not require any assistance from therapy services. Pt was seen and examined in collaboration with Dr. Zurita, please see addendum I spent a total of 46 minutes coordinating, documenting and providing care for this patient excluding time spent in the performance of separately billed services or time spent by another provider/QHP. Notes For Next Care Provider Please ensure pt has follow up with Pulmonology. Medication Changes From Visit New Medications: * Doxycycline 100mg by mouth twice daily for additional 5 days. Your next dose is due on 12/01/24 in the evening. This is an antibiotic used to treat your COPD Exacerbation. * Tamiflu 75mg by mouth twice daily for additional 3 days. Your next dose is due in the evening on 12/01/24. This is an antiviral medication to treat Influenza. * Zyrtec 10mg by mouth once daily at bedtime. This is an antihistamine to help with your COPD symptoms. Next dose is due 12/01/24 at bedtime. * You are being started on a nebulizer as needed. Ipratropium-Albuterol, you may use this every 6 hours as needed for shortness of breath. * Dexamethasone (steroid) take 4mg by mouth for 2 days. Then take 2mg (1/2 tablet) by mouth for 2 days and then stop. Next dose due 12/02/24. * Vancomycin 125mg by mouth daily while on doxycycline. Once you complete the antibiotic you may discontinue Vancomycin and start the new medication prescribed by GI. * Your BREO dose is being increased from 100mcg to 200mcg. Please start this new inhaler tomorrow. This will hopefully help reduce the frequency of your exacerbations. Continue all other medications as prescribed. Admission HPI Per Admitting Provider 68-year-old female with past medical history significant for type 2 diabetes, hyperlipidemia, COPD, CAD status post CABG, heart failure with reduced ejection fraction, paroxysmal atrial fibrillation, peripheral artery disease status post femoral-popliteal bypass surgery, hypertension, mitral valve disease, B12 deficiency, osteoporosis, backache, migraines, iron deficiency anemia, tobacco use use disorder, anxiety, who lives at home with her and presents due to not feeling well, cough and vomiting. Of significance patient was last hospitalized 10/21- 10/24 secondary to acute hypoxic respiratory failure in setting of coronavirus infection and COPD exacerbation. During the hospitalization she presented hypoxic in the 70s initially requiring high flow nasal cannula. CTA chest was negative for PE but did note pulmonary hypertension. She was empirically treated with IV Unasyn and azithromycin as well as dexamethasone. Her hospital course was complicated by acute on chronic HFrEF and C. difficile colitis. She was discharged on a prolonged vancomycin taper. She continues on the vancomycin taper at 125 mg every other day. She is following with outpatient gastroenterology in [place]. She is waiting to start fecal microbiota therapy and per gastroenterology is to continue vancomycin until she starts this. She continues to have a 5-6 episodes of diarrhea a day. She feels her diarrhea is unchanged. She presents to ED today due to starting to feel unwell yesterday. She was in her usual state of health whenever she developed feeling chills, sweats, coughing so hard she vomits and nausea. She has had a poor appetite for the last 2 days and has not had much in the way of solid food since then. She has been trying to drink fluids. She has been taking her medications as accordingly. She feels her breathing is at baseline and denies any increasing shortness of breath or wheezing. She feels her cough is mostly dry and not wet. She denies any documented fever, lightheadedness, dizziness, chest pain, hematemesis, abdominal pain, dysuria, increased urgency or frequency with urination. She denies any known sick contacts. History is obtained from patient and at bedside. In ED her CBC and CMP was generally unremarkable. Her respiratory bio fire screen currently pending at time of admission. She received a nebulizer treatment as well as IV methylprednisolone in the ED. Admission Exam Per Admitting Provider Constitutional: Fraile, F, vitals as above, NAD, sitting up in bed, pleasant, conversing easily receiving nebulizer tx Head: Normocephalic, Atraumatic Eyes: PERRL, conjunctivae normal, anicteric sclerae ENMT: external ear and nose normal, oropharynx normal dry membranes Neck: trachea midline, no thyromegaly normal visual inspection Respiratory: normal respiratory effort, decreased BS at bases, prolonged exp phase, + exp wheeze L > R, no accessory muscle use Cardiovascular: RRR, no murmur, no edema Vessels: no JVD or carotid bruit Chest: normal inspection of chest Abdomen: normal bowel sounds, soft, nontender, no hepatosplenomegaly Musculoskeletal: no cyanosis or clubbing, AROM x 4 Skin: no rashes, warm and dry normal turgor Neurologic: no face palsy, no dysarthria CN's II-XI intact bilaterally and moves all extremities Psychiatric: A+Ox3, euthymic affect Lymphatic: no cervical or axillary lymphadenopathy : deferred Discharge Exam Gen: Thin, fraile, lying in bed, appears better today, NAD, A&O x3 HEENT: Normocephalic, atraumatic, conjunctivae moist, sclerae anicteric, mucous membranes moist. Lung: Clear to Auscultation bilaterally, improved aeration compared to prior exams, no wheezes/rales/rhonchi Heart: Regular rate, regular rhythm, no murmurs, rubs, or gallops Abdomen: Soft, NT, ND +BS x 4 Extremities: No edema Skin: Warm, no rash, negative turgor. Updated Medication List Medication Instructions Recorded Confirmed Type albuterol sulfate 90 mcg/actuation 2 inh inhalation Q4H PRN Shortness 10/21/24 11/29/24 History aerosol inhaler Of Breath Or Wheezing apixaban 5 mg tablet (Eliquis) 5 mg PO BID 10/21/24 11/29/24 History calcitonin (salmon) 200 1 spray intranasal DAILY 10/21/24 11/29/24 History unit/actuation nasal spray fluticasone propionate 50 1 spray intranasal BID 10/21/24 11/29/24 History mcg/actuation nasal spray,suspension gabapentin 400 mg capsule 400 mg PO TID 10/21/24 11/29/24 History hydralazine 25 mg tablet 25 mg PO TID 10/21/24 11/29/24 History lorazepam 1 mg tablet 1 mg PO QID PRN Anxiety 10/21/24 11/29/24 History omeprazole 40 mg capsule,delayed 40 mg PO BID 10/21/24 11/29/24 History release potassium chloride 20 mEq 20 meq PO DAILY 10/21/24 11/29/24 History tablet,extended release(part/cryst) pravastatin 40 mg tablet 40 mg PO HS 10/21/24 11/29/24 History spironolactone 25 mg tablet 25 mg PO DAILY 10/21/24 11/29/24 History losartan 100 mg tablet 50 mg (1/2 x 100 mg) PO DAILY #15 10/24/24 11/29/24 Rx tabs metoprolol succinate 25 mg 25 mg PO QPM #30 tabs 10/24/24 11/29/24 Rx tablet,extended release 24 hr metoprolol succinate 50 mg 50 mg PO QAM #30 tabs 10/24/24 11/29/24 Rx tablet,extended release 24 hr ondansetron HCl 4 mg tablet 4 mg PO Q8H PRN nausea and 10/24/24 11/29/24 Rx vomiting #30 tabs tiotropium bromide 2.5 2 inh inhalation DAILY 11/29/24 11/29/24 History mcg/actuation mist for inhalation (Spiriva Respimat) cetirizine 10 mg tablet 10 mg PO HS #30 tabs 12/01/24 Rx dexamethasone 4 mg tablet See Taper PO QAM #3 tabs 12/01/24 Rx doxycycline hyclate 100 mg capsule 100 mg PO BID #10 caps 12/01/24 Rx fluticasone furoate 200 1 inh inhalation DAILY #60 ea 12/01/24 Rx mcg-vilanterol 25 mcg/dose inhalation powder (Breo Ellipta) ipratropium 0.5 mg-albuterol 3 mg 3 ml inhalation Q6R PRN 12/01/24 Rx (2.5 mg base)/3 mL nebulization SOB/Wheezing #90 mL soln oseltamivir 75 mg capsule (Tamiflu) 75 mg PO BID #6 caps 12/01/24 Rx vancomycin 125 mg capsule 125 mg PO DAILY #5 caps 12/01/24 Rx Hospital Stay Data Consultations 11/29/24 11:38 ED Decision to Admit Stat Diagnostic Imagining Performed Chest X-Ray 11/29/24 10:52 HISTORY: Chest pain. TECHNIQUE: Portable AP radiograph of the chest. COMPARISON: Chest CT dated 10/22/2024. Chest radiograph dated 10/21/2024. FINDINGS: Linear opacities involving the left lower lung favoring atelectasis or scarring. Right lung is clear. No pneumothorax or effusion. Mild cardiomegaly. Postsurgical changes of median sternotomy and CABG. Left-sided aortic arch contains atherosclerotic calcification. Midline trachea. IMPRESSION: No acute cardiopulmonary findings. Electronically signed by Rinku Stauffer 11-29-2024 11:29 AM Pending Results Patient Have Any Pending Studies at Discharge: No Discharge Instructions Given to Patient (Per Discharging Provider) MEDICATION CHANGES: New Medications: * Doxycycline 100mg by mouth twice daily for additional 5 days. Your next dose is due on 12/01/24 in the evening. This is an antibiotic used to treat your COPD Exacerbation. * Tamiflu 75mg by mouth twice daily for additional 3 days. Your next dose is due in the evening on 12/01/24. This is an antiviral medication to treat Influenza. * Zyrtec 10mg by mouth once daily at bedtime. This is an antihistamine to help with your COPD symptoms. Next dose is due 12/01/24 at bedtime. * You are being started on a nebulizer as needed. Ipratropium-Albuterol, you may use this every 6 hours as needed for shortness of breath. * Dexamethasone (steroid) take 4mg by mouth for 2 days. Then take 2mg (1/2 tablet) by mouth for 2 days and then stop. Next dose due 12/02/24. * Vancomycin 125mg by mouth daily while on doxycycline. Once you complete the antibiotic you may discontinue Vancomycin and start the new medication prescribed by GI. * Your BREO dose is being increased from 100mcg to 200mcg. Please start this new inhaler tomorrow. This will hopefully help reduce the frequency of your exacerbations. Continue all other medications as prescribed. SUMMARY OF TEST RESULTS: You were admitted to the hospital with low oxygen levels and not feeling well. You were diagnosed with Influenza A and a COPD exacerbation. You were started on an antibiotic, tamiflu and nebulizer treatments. Your symptoms gradually improved and you were able to be weaned off oxygen. PENDING TEST RESULTS: None RECOMMENDATIONS FOR FOLLOW-UP: Please follow up with your Primary Care Provider upon discharge. Please follow up with your Outboard Motor Mechanic upon discharge to help reduce the fr equency of your exacerbations. It is recommended to take it easy while you continue to recover from the Flu. OTHER INSTRUCTIONS: Seek medical attention if you have: * temperature above 101 * chest pain or trouble breathing * abdominal pain, nausea, vomiting * diarrhea, dark stools or bloody stools * any unanswered questions or concerns Call 911 if symptoms are severe. Please take good care of yourself. It has been a pleasure taking care of you. Please take care of yourself. If you have any questions regarding your recent hospitalization please contact [facility] and request Jessica Hi @ [phone]. Total Time Total Time Spent Total Time Spent (In Minutes): 46 minutes Supervising Physician Co-Signing Physician Notes I have seen and discussed the case with the collaborating advanced practitioner. I agree with the above PN. I have reviewed and confirmed the patients medical history, the findings on physical examination, and the patients diagnosis and treatment plan with Roxane EDEN and agree with the information documented. In short, is a 68 yo woman with COPD and emphysema admitted for Influenza A and COPD exacerbation. Patient improved with steroids and tamiflu. Patient requires nocturnal o2. Nebulizer prescription placed. 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 I have reviewed the advanced practitioner's documentation, and I agree with, and take responsibility for the plan of care
--- NOTE | 2024-12-02 09:06 | Coding Query ---
To promote full compliance with coding requirements relating to patient care, provider participation is requested in all cases of pre coder uncertainty. Please assist us with the question(s) below: Coding Question(s): The diagnosis below was documented in the Emergency Department Note, then subsequently fell off all further documentation. Please indicate if it is still a possible diagnosis or ruled out. Physician's Response(s): ACUTE HYPOXIA AND RESPIRATORY FAILURE, HYPOXIC RESPIRATORY FAILURE (regarding the Acute Respiratory Failure documented on the ER): ( x) Diagnosed and POA ( ) Diagnosed and not POA ( ) Ruled out ( ) Other (please specify) MTDD
== END 2024-12-01 13:36 | disposition home or self-care (01) | DRG 193 ==
LOC: ED 10:31 → 3N 11:54 → 2W 16:05